=== PATIENT | male | born 1965 | race Caucasian/White ===

== ENCOUNTER 2017-09-26 17:15 | Emergency (ER) | payer SELFPAY ==
[2017-09-26] MEDS ORDERED: CLOPIDOGREL 75 MG TABLET ONE (17:50)
[2017-09-26] MEDS ORDERED: ASPIRIN 81 MG CHEWABLE TABLET ONE (17:50)
[2017-09-26] MEDS ORDERED: HEPARIN 5000 UNIT/ML 1 ML VIAL ONE (17:50)
[2017-09-26] MEDS ORDERED: HEPARIN/D5W 25,000 UNIT/500 ML BAG IV ONE (17:51)
[2017-09-26] MEDS ORDERED: METOPROLOL TARTRATE 5 MG/5 ML INJ IV ONE ×2 (17:57→18:09)
[2017-09-26] MEDS ORDERED: NITROGLYCERIN 0.4 MG/TAB SL ONE (17:57)
[2017-09-26] MEDS ORDERED: MORPHINE 4 MG/ML SYR ONE ×2 (18:11→18:33)
[2017-09-26] MEDS ORDERED: ONDANSETRON 4 MG/2 ML VIAL ONE (18:11)
--- NOTE | 2017-09-26 18:13 | EDPHYS ---
Physician Documentation [facility] Name: aGrcia Matta Age: 52 yrs Sex: Male : 1965 Arrival Date: 09/26/2017 Time: 17:19 Bed 4 Private MD: ED Physician Abebe Frederick HPI: 09/26 17:53 This 52 yrs old Male presents to ER via Ambulatory with complaints of Chest kdr Pain, Nausea/Vomiting. 17:53 The patient or guardian reports chest pain that is located primarily in the substernal kdr area. Onset: suddenly, yesterday, Began at 15:00 yesterday. The pain does not radiate. Associated signs and symptoms: Pertinent positives: nausea, vomiting, Yesterday he vomited at the onset of pain. The chest pain is described as aching, dull. Duration: The patient or guardian reports a single episode, that is still ongoing, Wax and wanes. Modifying factors: The symptoms are alleviated by nothing. the symptoms are aggravated by nothing. Severity of pain: At its worst the pain was moderate severe incapacitating in the emergency department the pain has improved mildly. Historical: - Allergies: 17:29 No Known Allergies; hb - Home Meds: 17:29 None [Active]; hb - PMHx: 17:29 Pneumothorax; Hypertension; hb - PSHx: 17:29 None; hb - Immunization history:: Adult Immunizations up to date. - Social history:: Smoking status: Patient uses tobacco products, smokes one pack cigarettes per day. ROS: 17:53 Constitutional: Negative for fever, chills, and weight loss, Eyes: Negative for injury, kdr pain, redness, and discharge, Neck: Negative for injury, pain, and swelling, Respiratory: Negative for shortness of breath, cough, wheezing, and pleuritic chest pain, Abdomen/GI: Negative for abdominal pain, nausea, vomiting, diarrhea, and constipation, Back: Negative for injury and pain, : Negative for injury, bleeding, discharge, and swelling, MS/Extremity: Negative for injury and deformity, Skin: Negative for injury, rash, and discoloration, Neuro: Negative for headache, weakness, numbness, tingling, and seizure activity. Psych: Negative for depression, anxiety, suicide ideation, homicidal ideation, and hallucinations, Allergy/Immunology: Negative for hives, rash, and allergies, Endocrine: Negative for neck swelling, polydipsia, polyuria, polyphagia, and marked weight changes, Hematologic/Lymphatic: Negative for swollen nodes, abnormal bleeding, and unusual bruising. 17:53 Cardiovascular: Positive for chest pain, Negative for edema, orthopnea, palpitations, paroxysmal nocturnal dyspnea. Exam: 18:11 Constitutional: This is a well developed, well nourished patient who is awake, alert, kdr and in no acute distress. Head/Face: Normocephalic, atraumatic. Eyes: Pupils equal round and reactive to light, extra-ocular motions intact. Lids and lashes normal. Conjunctiva and sclera are non-icteric and not injected. Cornea within normal limits. Periorbital areas with no swelling, redness, or edema. Neck: Trachea midline, no thyromegaly or masses palpated, and no cervical lymphadenopathy. Supple, full range of motion without nuchal rigidity, or vertebral point tenderness. No Meningismus. Chest/axilla: Normal chest wall appearance and motion. Nontender with no deformity. No lesions are appreciated. Cardiovascular: Regular rate and rhythm with a normal S1 and S2. No gallops, murmurs, or rubs. Normal PMI, no JVD. No pulse deficits. Respiratory: Lungs have equal breath sounds bilaterally, clear to auscultation and percussion. No rales, rhonchi or wheezes noted. No increased work of breathing, no retractions or nasal flaring. Abdomen/GI: Soft, non-tender, with normal bowel sounds. No distension or tympany. No guarding or rebound. No evidence of tenderness throughout. Back: No spinal tenderness. No costovertebral tenderness. Full range of motion. Skin: Warm, dry with normal turgor. Normal color with no rashes, no lesions, and no evidence of cellulitis. MS/ Extremity: Pulses equal, no cyanosis. Neurovascular intact. Full, normal range of motion. Neuro: Awake and alert, GCS 15, oriented to person, place, time, and situation. Cranial nerves II-XII grossly intact. Motor strength 5/5 in all extremities. Sensory grossly intact. Cerebellar exam normal. Normal gait. Psych: Awake, alert, with orientation to person, place and time. Behavior, mood, and affect are within normal limits. Vital Signs: 17:29 BP 172 / 105; Pulse 81; Resp 18; Temp 97.9; Pulse Ox 97% on R/A; Weight 86.18 kg; hb Height 6 ft. 1 in. (185.42 cm); Pain 7/10; 18:06 BP 180 / 107; Pulse 73; Resp 16; Pulse Ox 99% on R/A; Pain 7/10; iw 18:11 BP 163 / 109; Pulse 71; Resp 20; Pulse Ox 100% on R/A; Pain 7/10; iw 18:15 BP 150 / 101; Pulse 76; Resp 18 S; Pulse Ox 98% on R/A; Pain 6/10; iw 18:26 BP 148 / 97; Pulse 76 MON; Resp 18 S; Pulse Ox 99% on R/A; Pain 6/10; sg 18:36 BP 139 / 92; Pulse 66; Resp 18 S; Pulse Ox 99% on R/A; Pain 7/10; iw 17:29 Body Mass Index 25.07 (86.18 kg, 185.42 cm) hb MDM: 17:56 Patient medically screened. [facility] 18:11 Data reviewed: vital signs, nurses notes, lab test result(s), EKG, radiologic studies. kdr Counseling: I had a detailed discussion with the patient and/or guardian regarding: the historical points, exam findings, and any diagnostic results supporting the discharge/admit diagnosis, lab results, radiology results, the need to transfer to another facility. 09/26 17:46 Order name: Basic Metabolic Panel [facility] 09/26 17:46 Order name: BNP [facility] 09/26 17:46 Order name: CBC with Diff [facility] 09/26 17:46 Order name: LFT's [facility] 09/26 17:46 Order name: Magnesium [facility] 09/26 17:46 Order name: PT-INR [facility] 09/26 17:46 Order name: Ptt, Activated [facility] 09/26 17:46 Order name: Troponin (emerg Dept Use Only) [facility] 09/26 17:46 Order name: XRAY Chest (1 view) [facility] 09/26 17:46 Order name: EKG; Complete Time: 17:47 [facility] 09/26 17:46 Order name: Cardiac monitoring; Complete Time: 18:05 [facility] 09/26 17:46 Order name: EKG - Nurse/Tech; Complete Time: 18:05 [facility] 09/26 17:46 Order name: IV Saline Lock; Complete Time: 18:05 09/26 17:46 Order name: Labs collected and sent; Complete Time: 18:09/26 17:46 Order name: O2 Per Protocol; Complete Time: 18:05 09/26 17:46 Order name: O2 Sat Monitoring; Complete Time: 18:06 Administered Medications: 17:56 Drug: Heparin (KS-Bolus No thrombolytic) - HEParin 60 units/kg {Co-Signature: reza iw (Corey Jewell RN).} Route: IVP; Site: right forearm; 18:00 Follow up: Response: No adverse reaction iw 17:56 Drug: Heparin (KS Drip) 12 units/kg/hr - (HEParin 63214 units, D5W 500 ml) iw {Co-Signature: sg (Corey Jewell RN).} Route: IV; Rate: calculated rate; Site: right forearm; 18:01 Drug: Nitroglycerin 0.4 mg Route: Sublingual; iw 18:03 Drug: Lopressor 5 mg Route: IVP; Site: left antecubital; iw 18:30 Follow up: Response: No adverse reaction iw 18:04 Not Given (Duplicate Order): Heparin (DVT/PE Drip) 18 units/kg/hr - (HEParin 17285 iw units, D5W 500 ml) IV at calculated rate Per protocol; Max initial rate 1800 units/hr 18:04 Not Given (Duplicate Order): Heparin (DVT/PE- Bolus per protocol) - HEParin 80 units/kg iw IVP once; Max 8,000 units 18:04 Drug: PlaVIX 600 mg Route: PO; iw 18:35 Follow up: Response: No adverse reaction iw 18:05 Drug: Nitroglycerin 0.4 mg Route: Sublingual; iw 18:05 Drug: Aspirin Chewable Tablet 324 mg Route: PO; iw 18:15 Follow up: Response: No adverse reaction iw 18:20 Drug: Nitroglycerin 0.4 mg Route: Sublingual; sg 18:30 Follow up: Response: No adverse reaction iw 18:36 Drug: morphine 4 mg Route: IVP; Site: left antecubital; iw 18:48 Follow up: Response: No adverse reaction; Pain is decreased iw 18:39 Drug: Nitro-Bid Ointment 2 % 1 inches Route: Transdermal; Site: anterior chest wall; iw Disposition: 09/26/17 18:12 Transfer ordered to [facility]. Diagnosis is STEMI, Hypertensive emergency. - Reason for transfer: Higher level of care. - Accepting physician is Cardiology. - Condition is Serious. - Problem is new. - Symptoms have improved. Signatures: Dispatcher [employer] Corey Gonzalez RN RN sg Abebe Frederick MD MD [facility] Angela Flores RN RN Titus Costa PA PA [id number] Constanza Disla RN RN Corey Jewell RN sg
--- NOTE | 2017-09-26 18:13 | ER ---
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 Pain does not radiate. Pt reports similar s/s yesterday while watching tv that lasted approx 45mins. Transition of care: patient was not received from another setting of care. Onset of symptoms was September 26, 2017. Care prior to arrival: None. 17:24 Method Of Arrival: Ambulatory hb 17:24 Acuity: CATARINA 3 hb 17:57 Acuity: CATARINA 2 iw 17:57 Initial Sepsis Screen: Does the patient meet any 2 criteria? No. Patient's initial iw sepsis screen is negative. Does the patient have a suspected source of infection? No. Patient's initial sepsis screen is negative. Historical: - Allergies: 17:29 No Known Allergies; hb - Home Meds: 17:29 None [Active]; hb - PMHx: 17:29 Pneumothorax; Hypertension; hb - PSHx: 17:29 None; hb - Immunization history:: Adult Immunizations up to date. - Social history:: Smoking status: Patient uses tobacco products, smokes one pack cigarettes per day. Screenin:06 Abuse screen: Denies threats or abuse. Denies injuries from another. Nutritional iw screening: No deficits noted. Tuberculosis screening: No symptoms or risk factors identified. Fall Risk IV access (20 points). Assessment: 17:57 General: Appears in no apparent distress. Behavior is calm, cooperative. Pain: iw Complains of pain in anterior aspect of left upper chest and left breast Pain does not radiate. Pain currently is 7 out of 10 on a pain scale. Pain: Quality of pain is described as feels like someone stepped on my chest Pain began 1 day ago. Is intermittent. Neuro: Level of Consciousness is awake, alert, obeys commands, Oriented to person, place, time, situation, Moves all extremities. Full function. Cardiovascular: Reports chest pain, lightheadedness, nausea, vomiting, Heart tones S1 S2 present Capillary refill < 3 seconds in bilateral fingers Edema is absent. Respiratory: Airway is patent Respiratory effort is even, unlabored. GI: Abdomen is non-distended, Reports nausea, vomiting. Derm: Skin is normal. 18:06 Reassessment: pt states pain still 7/10, BP still elevated after one dose of Lopressor iw and 1 SL nitro. 18:12 Reassessment: new orders given for morphine 4 mg and zorfan 4 mg IP, given now. iw 18:15 Reassessment: pt gave keys and checkbook to granddaughter Smita Overton. iw 18:35 Reassessment: Patient appears in no apparent distress at this time. Patient and/or sg family updated on plan of care and expected duration. Pain level reassessed. Patient is alert, oriented x 3, equal unlabored respirations, skin warm/dry/pink. awaiting [facility] at this time, pt stated his pain is now a 5/10 Patient states feeling better. 18:45 Reassessment: Patient is alert, oriented x 3, equal unlabored respirations, skin sg warm/dry/pink. [facility] at bedside at this time, report given, pt moved to [facility] stretcher for transport out of the faciltiy Patient states feeling better. Vital Signs: 17:29 BP 172 / 105; Pulse 81; Resp 18; Temp 97.9; Pulse Ox 97% on R/A; Weight 86.18 kg; hb Height 6 ft. 1 in. (185.42 cm); Pain 7/10; 18:06 BP 180 / 107; Pulse 73; Resp 16; Pulse Ox 99% on R/A; Pain 7/10; iw 18:11 BP 163 / 109; Pulse 71; Resp 20; Pulse Ox 100% on R/A; Pain 7/10; iw 18:15 BP 150 / 101; Pulse 76; Resp 18 S; Pulse Ox 98% on R/A; Pain 6/10; iw 18:26 BP 148 / 97; Pulse 76 MON; Resp 18 S; Pulse Ox 99% on R/A; Pain 6/10; sg 18:36 BP 139 / 92; Pulse 66; Resp 18 S; Pulse Ox 99% on R/A; Pain 7/10; iw 17:29 Body Mass Index 25.07 (86.18 kg, 185.42 cm) hb ED Course: 17:19 Patient arrived in ED. al2 17:25 Abebe Frederick MD is Attending Physician. kdr 17:28 Triage completed. hb 17:30 Arm band placed on left wrist. hb 17:52 Inserted saline lock: 20 gauge in left antecubital area, using aseptic technique. iw 17:52 Inserted saline lock: 22 gauge in right forearm, using aseptic technique. ,using iw aseptic technique. IV inserted by Claudia Bourne RN Blood collected. 17:54 X-ray completed. Portable x-ray completed in exam room. Patient tolerated procedure kp1 well. 17:54 EKG done, by clinical technician. reviewed by Abebe Frederick MD. vh 17:57 XRAY Chest (1 view) In Process Unspecified. EDMS 18:00 Patient has correct armband on for positive identification. Bed in low position. sg tooling inspector on. Pulse ox on. NIBP on. 18:18 Corey Jewell, RN is Primary Nurse. iw 18:49 No provider procedures requiring assistance completed. Patient transferred, IV remains sg in place. intact, No redness/swelling at site. Patient maintains SpO2 saturation greater than 95% on room air. Administered Medications: 17:56 Drug: Heparin ([place]-Bolus No thrombolytic) - HEParin 60 units/kg {Co-Signature: sg iw (Corey Jewell RN).} Route: IVP; Site: right forearm; 18:00 Follow up: Response: No adverse reaction iw 17:56 Drug: Heparin ([place] Drip) 12 units/kg/hr - (HEParin 28305 units, D5W 500 ml) iw {Co-Signature: sg (Corey Jewell RN).} Route: IV; Rate: calculated rate; Site: right forearm; 18:01 Drug: Nitroglycerin 0.4 mg Route: Sublingual; iw 18:03 Drug: Lopressor 5 mg Route: IVP; Site: left antecubital; iw 18:30 Follow up: Response: No adverse reaction iw 18:04 Not Given (Duplicate Order): Heparin (DVT/PE Drip) 18 units/kg/hr - (HEParin 04277 iw units, D5W 500 ml) IV at calculated rate Per protocol; Max initial rate 1800 units/hr 18:04 Not Given (Duplicate Order): Heparin (DVT/PE- Bolus per protocol) - HEParin 80 units/kg iw IVP once; Max 8,000 units 18:04 Drug: PlaVIX 600 mg Route: PO; iw 18:35 Follow up: Response: No adverse reaction iw 18:05 Drug: Nitroglycerin 0.4 mg Route: Sublingual; iw 18:05 Drug: Aspirin Chewable Tablet 324 mg Route: PO; iw 18:15 Follow up: Response: No adverse reaction iw 18:20 Drug: Nitroglycerin 0.4 mg Route: Sublingual; sg 18:30 Follow up: Response: No adverse reaction iw 18:36 Drug: morphine 4 mg Route: IVP; Site: left antecubital; iw 18:48 Follow up: Response: No adverse reaction; Pain is decreased iw 18:39 Drug: Nitro-Bid Ointment 2 % 1 inches Route: Transdermal; Site: anterior chest wall; iw Outcome: 18:12 ER care complete, transfer ordered by . [facility] 18:48 Transferred by helicopter to [facility], Transfer form completed. sg Note: report was called to Yojana Flores RN 18:48 Condition: stable 18:48 Instructed on the need for transfer, report given to Supervisor Word Processing, and Flight RN with [facility] 18:50 Patient left the ED. 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 hb
[2017-09-26 18:15] LABS: Absolute Lymphocytes (CBC) 3.4 K/uL (0.7-4.9); Absolute Monocytes 1.6 K/uL (0.1-1.3); Absolute Neutrophil 6.7 K/uL (1.8-8.0); Basophils % 0.7 % (0-1.3); Eosinophils % 3.2 % (0-4.4); Hematocrit 44.1 % (39.6-49.0); Lymphocytes % 28.1 % (15.3-44.8); MCH 30.9 pg (27.0-35.0); MCV 90.3 fL (80-100); MPV 10.3 fL (7.6-11.3); RBC Red Blood Cell Count 4.89 M/uL (4.33-5.43)
[2017-09-26 18:16] LABS: Protime INR 0.94
[2017-09-26 18:28] LABS: Bicarbonate 25 mEq/L (21-31); Glucose Level 97 mg/dL (65-120); Potassium 3.5 mEq/L (3.6-5.0); Sodium Level 138 mEq/L (135-145)
[2017-09-26] MEDS ORDERED: NITROGLYCERIN 1 GM PKT TD ONE (18:32)
[2017-09-26 18:35] LABS: ALT/SGPT 22 IU/L (10-60); AST/SGOT 28 IU/L (10-42); Albumin 4.3 g/dL (3.2-5.5); Alkaline Phosphatase 64 IU/L (42-121); BUN Blood Urea Nitrogen 14 mg/dL (6-20); Bilirubin Direct 0.1 mg/dL (0-0.2); Bilirubin Total 0.3 mg/dL (0.3-1.2); Magnesium 1.6 mg/dL (1.8-2.5); Protein, Total 7.4 g/dL (6.0-8.3)
--- NOTE | 2017-09-26 18:36 | RAD REPORT ---
EXAM DESCRIPTION: Carina Single View09/26/2017 5:57 pm CLINICAL HISTORY: Chest pain COMPARISON: none FINDINGS: The lungs appear clear of acute infiltrate. The heart is normal size IMPRESSION: No acute abnormalities displayed
--- NOTE | 2017-09-26 22:11 | EKG ---
Test Date: 2017-09-26 Test Time: 17:41:46 Casing Sewer: TONY MEASUREMENT RESULTS: Intervals: Rate: 76 MT: 120 QRSD: 96 QT: 376 QTc: 423 [place]: P: 13 MT: 120 QRS: 63 T: 64 INTERPRETIVE STATEMENTS: Normal sinus rhythm Minimal voltage criteria for LVH, may be normal variant ST elevation, consider anterior injury or acute infarct ACUTE CO Abnormal ECG No previous ECG available for comparison Electronically Signed On 09-26-17 22:10:35 CDT by Ad Deng
== END 2017-09-26 18:50 | disposition short-term general hospital (02) ==
LOC: ER 17:15
DX: I21.3 ST elevation (STEMI) myocardial infarction of unspecified site (principal); I16.0 Hypertensive urgency
CPT/HCPCS: 36415; 71045; 80048; 80076; 83735; 83880; 84484; 85025; 85610; 85730; 93005; 99285; J1644; J2405

== ENCOUNTER 2017-10-22 16:50 | Observation (INO) | payer SELFPAY ==
--- OUTSIDE RECORDS SUMMARY | 2017-10-22 16:58 | XMS REPORT | Clinical Summary ---
:1965 Author Organization [facility] Address [address] [place] [address] Phone Care Team Providers Name Role Phone Unavailable Primary Care Provider Unavailable Allergies No Known Allergies Current Medications Prescription Sig. Disp. Refills Start Date End Date Status aspirin 81 MG EC Take 1 tablet 30 tablet 11 09/29/2017 09/29/2018 Active tablet (81 mg total) by mouth daily. atorvastatin (LIPITOR) Take 1 tablet 30 tablet 11 09/28/2017 09/28/2018 Active 80 MG tablet (80 mg total) by mouth nightly. carvedilol (COREG) Take 1 tablet 60 tablet 11 09/28/2017 09/28/2018 Active 6.25 MG tablet (6.25 mg total) by mouth 2 (two) times daily. clopidogrel (PLAVIX) Take 1 tablet 30 tablet 11 09/29/2017 09/29/2018 Active 75 mg tablet (75 mg total) by mouth daily. lisinopril Take 1 tablet 30 tablet 11 09/29/2017 09/29/2018 Active (PRINIVIL,ZESTRIL) 20 (20 mg total) by MG tablet mouth daily. nicotine (NICODERM CQ) Place 1 patch 30 patch 0 09/29/2017 10/29/2017 Active 14 mg/24 hr patch onto the skin daily for [address] 1 tablet 90 tablet 0 09/28/2017 Active (NITROSTAT) 0.4 MG SL (0.4 mg total) tablet under the tongue every 5 (five) minutes as needed for Chest pain. Active Problems Problem Noted Date Tobacco abuse 09/27/2017 Essential hypertension 09/27/2017 STEMI (ST elevation myocardial infarction) (HCC) 09/26/2017 Encounters Date Type Specialty Care Team Description 09/26/2017 - Hospital Encounter Cardiology Chencho Valladares MD ST elevation myocardial 09/28/2017 Charlie Regalado MD infarction (STEMI), unspecified artery ([facility]) (Primary Dx);SOB (shortness of breath);Ischemic cardiomyopathy;Postoper ative cardiogenic shock, initial encounter ([facility]);Hypotension, unspecified hypotension type;ST elevation myocardial infarction involving left anterior descending (LAD) coronary artery ([facility]) 09/26/2017 Procedure Pass 09/26/2017 Surgery Chencho Valladares MD L CATH & PCI after 10/21/2016 Social History Tobacco Use Types Packs/Day Years Used Date Current Every Day Smoker 1.5 Smokeless Tobacco: Never Used Tobacco Cessation: Ready to Quit: Yes; Counseling Given: Yes Alcohol Use Drinks/Week oz/Week Comments No Sex Assigned at Date Recorded Not on file Last Filed Vital Signs Vital Sign Reading Time Taken Blood Pressure 105/72 09/28/2017 11:30 AM CDT Pulse 99 09/28/2017 11:30 AM CDT Temperature 36.4 C (97.5 F) 09/28/2017 11:30 AM CDT Respiratory Rate 18 09/28/2017 11:30 AM CDT Oxygen Saturation 98% 09/28/2017 11:30 AM CDT Inhaled Oxygen Concentration - - Weight 74.3 kg (163 lb 11.2 oz) 09/28/2017 7:50 AM CDT Height 185.4 cm (6' 1") 09/26/2017 9:00 PM CDT Body Mass Index 21.6 09/28/2017 7:50 AM CDT Plan of Treatment Not on file Implants Implanted Type Area Weir Fisher Device Expiration Model / Identifier Date Serial / Lot Promus Premier Stents-C N/A: [place] 12/28/2018 [id number] / Implanted: Qty: 1 on 09/26/2017 by Chencho Valladares MD [employer] Coronary [employer] / [id number] Promus Premier Stents-C N/A: [place] 09/14/2018 [id number] / Implanted: Qty: 1 on 09/26/2017 by Chencho Valladares MD [employer] Coronary [employer]en / [id number] Promus Premier Stents-C N/A: [place] 12/28/2018 [id number] / Implanted: Qty: 1 on 09/26/2017 by [facility]cho [facility]res [facility] [employer] / [id number] Promus Premier Stents-C N/A: [place] 12/20/2018 [id number] / Implanted: Qty: 1 on 09/26/2017 by Chencho Valladares MD [facility] Coronary [employer] / [id number] Procedures Procedure Name Priority Date/Time Associated Diagnosis Comments L CATH & PCI 09/26/2017 7:[address] elevation myocardial infarction (STEMI), unspecified artery (HCC) after 10/21/2016 Results VASCULAR DIAGRAM -SCAN (10/07/2017 12:10 PM)Only the most recent of2 resultswithin the time period is included.CARDIAC CATH REPORT - SCAN (2017 9:10 PM)EKG-SCANNED (09/30/2017 11:20 AM)RHYTHM STRIP - SCAN (09/30/2017 11:20 AM)ECHOCARDIOGRAM REPORT - SCAN (09/28/2017 3:20 PM)CBC (Hemogram only) ( 09/28/2017 6:33 AM) Component Value Ref Range WBC 11.9 (H) 3.5 - 10.5 K/L RBC 5.10 4.63 - 6.08 M/L Hemoglobin 15.1 13.7 - 17.5 GM/DL Hematocrit 47.4 40.1 - 51.0 % MCV 92.9 (H) 79.0 - 92.2 fL MCH 29.6 25.7 - 32.2 pg MCHC 31.9 (L) 32.3 - 36.5 GM/DL RDW 12.6 11.6 - 14.4 % Platelets 178 150 - 450 K/CU MM MPV 11.8 9.4 - 12.4 fL nRBC 0 0 - 0 /100 WBC Specimen Performing Laboratory Blood - Arm, [address] [address] Magnesium (09/28/2017 6:33 AM)Only the most recent of2 resultswithin the time period is included. Component Value Ref Range Magnesium 1.9 1.6 - 2.6 mg/dL Specimen Performing Laboratory Blood - Arm, [address] [address] Basic Metabolic Panel (09/28/2017 6:33 AM)Only the most recent of3 resultswithin the time period is included. Component Value Ref Range Sodium 137 136 - 145 meq/L Potassium 4.0 3.5 - 5.1 meq/L Chloride 108 (H) 98 - 107 meq/L CO2 21 (L) 22 - 29 meq/L BUN 12 7 - 21 mg/dL Creatinine 0.69 0.57 - 1.25 mg/dL Glucose 93 70 - 105 mg/dL Calcium 9.4 8.4 - 10.2 mg/dL EGFR 121Comment: ESTIMATED GFR IS NOT ACCURATE mL/min/1.73 sq m CREATININE CLEARANCE IN PREDICTING GLOMERULAR FILTRATION RATE. ESTIMATED GFR IS NOT APPLICABLE FOR DIALYSIS PATIENTS. Specimen Performing Laboratory Blood - Arm, [address] [address] Troponin I (09/27/2017 8:54 PM)Only the most recent of4 resultswithin the time period is included. Component Value Ref Range Troponin I 63.70 (HH) 0.00 - 0.03 ng/mL Specimen Performing Laboratory Blood - Arm, [address] [address] Narrative Troponin I (TnI) levels must be interpreted in the context of the presenting symptoms and the clinical findings. Elevated TnI levels indicate myocardial damage, but are not specific for ischemic heart disease. Elevated TnI levels are seen in patients with other cardiac conditions (including myocarditis and congestive heart failure), and slight TnI elevations occur in patients with other conditions, including sepsis, renal failure, acidosis, acute neurological disease, and persistent tachyarrhythmia. 2D Echo W/Doppler(CW/PW/Color) (09/27/2017 4:55 PM) Component Value Ref Range Ejection Fraction Specimen Performing Laboratory 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 Clinical History HGB 13.8 HCT 42.8 % Hypertension STEMI Tachycardia Height: 73 inches Weight: 75.3 kg (166 lbs) BSA: 1.99 m^2 BMI: 21.9 kg/m^2 HR: 95 bpm BP: 126/83 mmHg Summary The left ventricle is chamber size (by vol index) is normal (male - LVED vol - 34-74ml/m2). No evidence of LV hypertrophy. The following segment(s) appear akinetic: mid-apical anteroseptum, apex. The other segments contract normally. LVEF by Valladares's method of disk assessment is mildly reduced (45-49%) . Grade 1 diastolic dysfunction (impaired relaxation and low-normal LA pressure). The right ventricular chamber size and systolic function are within normal limits. Estimated peak systolic PA pressure is 20-25 mmHg . No significant pericardial effusion is visualized. Signature Findings Left Ventricle The left ventricle is chamber size (by vol index) is normal (male - LVED vol - 34-74ml/m2). No evidence of LV hypertrophy. The following segment(s) appear akinetic: mid-apical anteroseptum, apex. The other segments contract normally. LVEF by Valladares's method of disk assessment is mildly reduced ( 45-49%) . Grade 1 diastolic dysfunction (impaired relaxation and low-normal LA pressure). Left AtriumLA size is normal . Right VentricleThe right ventricular chamber size and systolic function are within normal limits. Right Atrium RA size is normal. Aortic Valve Mild AoV cusp calcification. Mitral Valve Normal MV structure and function. Tricuspid ValveA trace of tricuspid regurgitation. Estimated peak systolic PA pressure is 20-25 mmHg . Pulmonic Valve PV is not well visualized; function appears normal by Doppler visualized. AortaAortic root size (SInus of Valsalva diameter) is normal . PericardiumNo significant pericardial effusion is visualized. IVC/SVC/PA/PV/PleuralThe estimated RA pressure by IVC dynamics 5-10mmHg . Chambers/Structures Left Atrium LA Volume: 33.65 ml LA Area: 13.08 cm^ 2 LA Vol. Index: 17 ml/m^2 Left Ventricle LVIDd: 4.22 cm LVIDs: 3.3 cm LV Septum Diastolic: 1.16 cm LV PW Diastolic: 1.34 cmLV FS: 21.8 % LVEDV Valladares's:69.19 ml LVESV Valladares's:37.88 mlLVEDVI: 35 ml/ m^2 LVEF Valladares's: 45.3 %LVESVI: 19 ml/m^2 LVOT Diameter: 2.09 cm Doppler/Quantitative Measurements Mitral Valve MV López. Peak: Tissue Doppler E' Lateral Velocity: 0.07 m/s Aortic Valve Peak Velocity: 2.21 m/sMean Velocity: 1.5 m/s Peak Gradient: 19.59 mmHgMean Gradient: 10.03 mmHg AV Area (continuity): 1.63 cm^2 AV VTI: 34.6 cm AV DVI: 0.48 LVOT Peak Velocity: 0.91 m/s Peak Gradient: 3.31 mmHg Mean Velocity: 0.64 m/s Mean Gradient: 1.89 mmHg LVOT Diameter: 2.09 cmLVOT VTI: 16.45 cm LVOT Area: 3.43 cm^2LVOT SV:56.41 ml LVOT CO: 5.36 l/min LVOT CI: 2.69 l/min/m^2 Tricuspid Valve TR Velocity: 1.87 m/s TR Gradient: 14.01 mmHg Procedure Note Interface, External Ris In - 09/28/2017 2:36 PM CDT Transthoracic Echocardiography Report (TTE) Demographics Patient Name GARCIA MATTA Date of Study 09/27/2017 Gender Male Visit Number [id number] Race Unknown Room Number 1431 Number Date of 1965 Referring Physician Age 52 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 Clinical History HGB 13.8 HCT 42.8 % Hypertension STEMI Tachycardia Height: 73 inches Weight: 75.3 kg (166 lbs) BSA: 1.99 m^2 BMI: 21.9 kg/m^2 HR: 95 bpm BP: 126/83 mmHg Summary The left ventricle is chamber size (by vol index) is normal (male - LVED vol - 34-74ml/m2). No evidence of LV hypertrophy. The following segment(s) appear akinetic: mid-apical anteroseptum, apex. The other segments contract normally. LVEF by Valladares's method of disk assessment is mildly reduced (45-49%) . Grade 1 diastolic dysfunction (impaired relaxation and low-normal LA pressure). The right ventricular chamber size and systolic function are within normal limits. Estimated peak systolic PA pressure is 20-25 mmHg . No significant pericardial effusion is visualized. Signature Findings Left Ventricle The left ventricle is chamber size (by vol index) is normal (male - LVED vol - 34-74ml/m2). No evidence of LV hypertrophy. The following segment(s) appear akinetic: mid-apical anteroseptum, apex. The other segments contract normally. LVEF by Valladares's method of disk assessment is mildly reduced (45-49%) . Grade 1 diastolic dysfunction (impaired relaxation and low-normal LA pressure). Left Atrium LA size is normal . Right Ventricle The right ventricular chamber size and systolic function are within normal limits. Right Atrium RA size is normal. Aortic Valve Mild AoV cusp calcification. Mitral Valve Normal MV structure and function. Tricuspid Valve A trace of tricuspid regurgitation. Estimated peak systolic PA pressure is 20-25 mmHg . Pulmonic Valve PV is not well visualized; function appears normal by Doppler visualized. Aorta Aortic root size (SInus of Valsalva diameter) is normal . Pericardium No significant pericardial effusion is visualized. IVC/SVC/PA/PV/Pleural The estimated RA pressure by IVC dynamics 5-10mmHg . Chambers/Structures Left Atrium LA Volume: 33.65 ml LA Area: 13.08 cm^2 LA Vol. Index: 17 ml/m^2 Left Ventricle LVIDd: 4.22 cm LVIDs: 3.3 cm LV Septum Diastolic: 1.16 cm LV PW Diastolic: 1.34 cm LV FS: 21.8 % LVEDV Valladares's:69.19 ml LVESV Valladares's:37.88 ml LVEDVI: 35 ml/m^2 LVEF Valladares's: 45.3 % LVESVI: 19 ml/m^2 LVOT Diameter: 2.09 cm Doppler/Quantitative Measurements Mitral Valve MV López. Peak: Tissue Doppler E' Lateral Velocity: 0.07 m/s Aortic Valve Peak Velocity: 2.21 m/s Mean Velocity: 1.5 m/s Peak Gradient: 19.59 mmHg Mean Gradient: 10.03 mmHg AV Area (continuity): 1.63 cm^2 AV VTI: 34.6 cm AV DVI: 0.48 LVOT Peak Velocity: 0.91 m/s Peak Gradient: 3.31 mmHg Mean Velocity: 0.64 m/s Mean Gradient: 1.89 mmHg LVOT Diameter: 2.09 cm LVOT VTI: 16.45 cm LVOT Area: 3.43 cm^2 LVOT SV:56.41 ml LVOT CO: 5.36 l/min LVOT CI: 2.69 l/min/m^2 Tricuspid Valve TR Velocity: 1.87 m/s TR Gradient: 14.01 mmHg TSH/Free T4 If Indicated (09/27/2017 11:55 AM) Component Value Ref Range TSH 1.30 0.35 - 4.94 uIU/mL Specimen Performing Laboratory Blood [facility] [address] [address] Narrative Draw next time labs are due Blood culture (09/27/2017 10:05 AM)Only the most recent of2 resultswithin the time period is included. Component Value Ref Range Result No growth in 5 days Specimen Performing Laboratory Blood - Arm, Left [address] [address] Rapid drug screen, urine (09/27/2017 8:58 AM) Component Value Ref Range Barbiturate Screen Negative Negative Benzodiazepine Screen Positive (A) Negative Cocaine (Metab.) Screen Negative Negative Methadone Screen Negative Negative Opiate Screen Positive (A) Negative Cannabinoid Screen Negative Negative Amph/Methamph Screen Negative Negative Phencyclidine Screen Negative Negative Oxycodone Screen Negative Negative Specimen Performing Laboratory Urine - Urine, Voided [address] [address] Narrative DRUGCUTOFF CONC. Cocaine 300 ng/mL Ddheuxgmnqm67 ng/mL Hidmsnendtdgrs512 ng/mL Barbiturate 200 ng/mL Ftdghweojacph05 ng/mL Dflezk151 ng/mL Methadone 300 ng/mL Amphetamine/ 1000 ng/mL Methamphetamine Oxycodone 300 ng/mL This assay provides an unconfirmed qualitative test result for the clinical management of patients in emergency situations. Chain of custody not maintained. Some emhd-voi-esrdnig medications, as well as adulterants, may cause inaccurate results. Clinical correlation should be applied. A more comprehensive drug screen or confirmation of a detected drug may be performed upon request. Hemoglobin A1c (09/27/2017 8:53 AM) Component Value Ref Range Hemoglobin A1C 5.2 4.3 - 6.1 % Specimen Performing Laboratory Blood [address] [address] Lipid panel (09/27/2017 8:53 AM) Component Value Ref Range Triglycerides 128 mg/dL Cholesterol 181 mg/dL HDL 32 mg/dL LDL Calculated 123 mg/dL Specimen Performing Laboratory Blood [address] [address] Narrative Triglyceride Reference Range: Low Risk <150 [id number] High Risk 200-499 Very High Risk>=500 Cholesterol Reference Range: Low Risk <200 Yfhiiluiav069-575 High Risk>240 HDL Cholesterol Reference Range: Low Risk >=60 High Risk <40 LDL Cholesterol Reference Range: Optimal<100 Near Urxolqt849-429 Ehrrzukhxy321-342 Verh596-507 Very High >=190 PT/aPTT (09/27/2017 5:35 AM) Component Value Ref Range Protime 13.2 11.7 - 14.7 seconds INR 1.0 <=5.9 PTT 29.7 22.5 - 36.0 seconds Specimen Performing Laboratory Blood [address] [address] Narrative RECOMMENDED COUMADIN/WARFARIN INR THERAPY RANGES STANDARD DOSE: 2.0 - 3.0 Includes: PROPHYLAXIS for venous thrombosis, systemic embolization; TREATMENT for venous thrombosis and/or pulmonary embolus. HIGH RISK: Target INR is 2.5-3.5 for patients with mechanical heart valves. CBC with platelet count + automated diff (09/27/2017 5:35 AM)Only the most recent of2 resultswithin the time period is included. Component Value Ref Range WBC 15.3 (H) 3.5 - 10.5 K/L RBC 4.56 (L) 4.63 - 6.08 M/L Hemoglobin 13.8 13.7 - 17.5 GM/DL Hematocrit 42.8 40.1 - 51.0 % MCV 93.9 (H) 79.0 - 92.2 fL MCH 30.3 25.7 - 32.2 pg MCHC 32.2 (L) 32.3 - 36.5 GM/DL RDW 12.8 11.6 - 14.4 % Platelets 181 150 - 450 K/CU MM MPV 11.5 9.4 - 12.4 fL nRBC 0 0 - 0 /100 WBC % Neutros 75 % % Lymphs 12 % % Monos 11 % % Eos 1 % % Baso 0 % # Neutros 11.48 (H) 1.78 - 5.38 K/L # Lymphs 1.88 1.32 - 3.57 K/L # Monos 1.73 (H) 0.30 - 0.82 K/L # Eos 0.12 0.04 - 0.54 K/L # Baso 0.04 0.01 - 0.08 K/L Immature Granulocytes-Relative 1 0 - 1 % Specimen Performing Laboratory Blood [address] [address] CBC with platelet count + automated diff (09/27/2017 5:35 AM)Only the most recent of2 resultswithin the time period is included. Specimen Performing Laboratory Blood Narrative The following orders were created for panel order CBC with platelet count + automated diff. Procedure Abnormality Status --------- ------ CBC with platelet count ...[[id number]]AbnormalFinal result Please view results for these tests on the individual orders. Urinalysis, Routine (09/27/2017 4:08 AM) Component Value Ref Range Color, UA Yellow Clarity, UA Clear Specific Fossil, UA >1.050 (H) 1.001 - 1.035 pH, UA 6.5 5.0 - 8.0 Protein, UA 10 mg/dL (A) Negative Glucose, UA Negative Negative Ketones, UA 20 mg/dL (A) Negative Bilirubin, UA Negative Negative Blood, UA Negative Negative Nitrite, UA Negative Negative Leukocytes, UA Negative Negative Urobilinogen, UA 0.2 0.2 - 1.0 mg/dL RBC, UA 1 /HPF WBC, UA 1 /HPF Mucus Rare Specimen Source Urine, Straight Catheter Specimen Performing Laboratory Urine - Urine, Straight Catheter [address] [address] POC ACTIVATED CLOTTING TIME (09/27/2017 1:25 AM)Only the most recent of4 resultswithin the time period is included. Component Value Ref Range Activated Clotting Time 131Comment: TESTED AT [address] sec [id number] Specimen Performing Laboratory Blood [address] [address] XR chest 1 view portable / bedside (09/26/2017 11:28 PM) Specimen Performing Laboratory GE RIS Narrative FINAL REPORT History: DE. Comparison: None. Findings: A single view of the chest is submitted. The patient is rotated to the right. The cardiomediastinal contours are unremarkable. The lung volumes are slightly low. Diffusely coarsened interstitial markings could reflect interstitial scarring or mild pulmonary interstitial edema. Bullae are noted in the left apex. There is no focal consolidation, pneumothorax, large pleural effusion or acute bony abnormality. Signed: Michael Sequeira MD Report Verified Date/Time:09/26/2017 23:46:29 Reading Location: [address] Reading Room Procedure Note Interface, External Ris In - 09/27/2017 12:03 AM CDT FINAL REPORT History: DE. Comparison: None. Findings: A single view of the chest is submitted. The patient is rotated to the right. The cardiomediastinal contours are unremarkable. The lung volumes are slightly low. Diffusely coarsened interstitial markings could reflect interstitial scarring or mild pulmonary interstitial edema. Bullae are noted in the left apex. There is no focal consolidation, pneumothorax, large pleural effusion or acute bony abnormality. Signed: Michael Sequeira MD Report Verified Date/Time: 09/26/2017 23:46:29 Reading Location: [address] Reading Room aPTT (09/26/2017 9:35 PM) Component Value Ref Range PTT >200.0 (HH) 22.5 - 36.0 seconds Specimen Performing Laboratory [address] [address] Prothrombin time/INR (09/26/2017 9:35 PM) Component Value Ref Range Protime 15.5 (H) 11.7 - 14.7 seconds INR 1.2 <=5.9 Specimen Performing Laboratory [address] [address] Narrative RECOMMENDED COUMADIN/WARFARIN INR THERAPY RANGES STANDARD DOSE: 2.0 - 3.0 Includes: PROPHYLAXIS for venous thrombosis, systemic embolization; TREATMENT for venous thrombosis and/or pulmonary embolus. HIGH RISK: Target INR is 2.5-3.5 for patients with mechanical heart valves. Phosphorus (09/26/2017 9:35 PM) Component Value Ref Range Phosphorus 3.6Comment: Specimen slightly hemolyzed 2.3 - 4.7 mg/dL Specimen Performing Laboratory [address] [address] B-type natriuretic peptide (09/26/2017 9:35 PM) Component Value Ref Range BNP 71 0 - 100 pg/mL Specimen Performing Laboratory [address] [address] Hepatic function panel (09/26/2017 9:35 PM) Component Value Ref Range Protein, Total 6.6Comment: Specimen slightly hemolyzed 6.0 - 8.3 gm/dL Albumin 3.9Comment: Specimen slightly hemolyzed 3.5 - 5.0 g/dL Total Bilirubin 0.5Comment: Specimen slightly hemolyzed 0.2 - 1.2 mg/dL Bilirubin, Direct 0.2Comment: Specimen slightly hemolyzed 0.1 - 0.5 mg/dL Alkaline Phosphatase 65 40 - 150 U/L AST 214 (H)Comment: Specimen slightly hemolyzed 5 - 34 U/L ALT 39Comment: Specimen slightly hemolyzed 6 - 55 U/L Specimen Performing Laboratory Blood [facility] [address] [address] after 10/21/2016
--- OUTSIDE RECORDS SUMMARY | 2017-10-22 16:58 | XMS REPORT ---
:1965 [facility] [address] [place] [address] Care Team Providers Name Role Phone PRADEEP STEEL Unavailable Unavailable Problems This patient has no known problems. Allergies, Adverse Reactions, Alerts This patient has no known allergies or adverse reactions. Medications This patient has no known medications. Results Test Description Test Time Test Comments Text Results Atomic Results Result Comments BLOOD CULTURE 2017-10-02 12:00:00 Test Item Value Reference Range Comments CULTURE (BEAKER) (test alsu=2268) No growth in 5 days BLOOD [id number] 12:00:00 Test Item Value Reference Range Comments CULTURE (BEAKER) (test bhmb=5270) No growth in 5 days [id number] 07:30:00 Test Item Value Reference Range Comments MAGNESIUM (BEAKER) (test pssm=766) 1.9 mg/dL 1.6-2.6 BASIC METABOLIC [id number] 07:30:00 Test Item Value Reference Range Comments SODIUM (BEAKER) (test 137 meq/L 136-145 rczs=959) POTASSIUM (BEAKER) (test 4.0 meq/L 3.5-5.1 rxlx=857) CHLORIDE (BEAKER) (test 108 meq/L 98-107 oakv=513) CO2 (BEAKER) (test 21 meq/L 22-29 pvnp=239) BLOOD UREA NITROGEN 12 mg/dL 7-21 (BEAKER) (test rkod=776) CREATININE (BEAKER) (test 0.69 mg/dL 0.57-1.25 wwjh=059) GLUCOSE RANDOM (BEAKER) 93 mg/dL 70-105 (test fmxk=022) CALCIUM (BEAKER) (test 9.4 mg/dL 8.4-10.2 utoh=318) EGFR (BEAKER) (test 121 mL/min/1.73 sq m ESTIMATED GFR IS NOT bhpa=1702) ACCURATE CREATININE CLEARANCE IN PREDICTING GLOMERULAR FILTRATION RATE. ESTIMATED GFR IS NOT APPLICABLE FOR DIALYSIS PATIENTS. CBC (HEMOGRAM ONLY)2017-09-28 07:02:00 Test Item Value Reference Range Comments WHITE BLOOD CELL COUNT (BEAKER) (test tcow=373) 11.9 K/ L 3.5-10.5 RED BLOOD CELL COUNT (BEAKER) (test oawg=700) 5.10 M/ L 4.63-6.08 HEMOGLOBIN (BEAKER) (test gxuk=066) 15.1 GM/DL 13.7-17.5 HEMATOCRIT (BEAKER) (test fnst=287) 47.4 % 40.1-51.0 MEAN CORPUSCULAR VOLUME (BEAKER) (test dkry=934) 92.9 fL 79.0-92.2 MEAN CORPUSCULAR HEMOGLOBIN (BEAKER) (test 29.6 pg 25.7-32.2 ohpg=557) MEAN CORPUSCULAR HEMOGLOBIN CONC (BEAKER) (test 31.9 GM/DL 32.3-36.5 lkit=495) RED CELL DISTRIBUTION WIDTH (BEAKER) (test 12.6 % 11.6-14.4 evad=720) PLATELET COUNT (BEAKER) (test soji=769) 178 K/CU MM 150-450 MEAN PLATELET VOLUME (BEAKER) (test sulg=487) 11.8 fL 9.4-12.4 NUCLEATED RED BLOOD CELLS (BEAKER) (test 0 /100 WBC 0-0 wimh=448) TROPONIN [id number] 22:02:00 Test Item Value Reference Range Comments TROPONIN I (BEAKER) (test rmdg=612) 63.70 ng/mL 0.00-0.03 Troponin I (TnI) levels must be interpreted [...] failure, acidosis, acute neurological disease, and persistent tachyarrhythmia.TSH/FREE T4 IF [id number] 16:05 :00 Test Item Value Reference Range Comments THYROID STIMULATING HORMONE (BEAKER) (test 1.30 uIU/mL 0.35-4.94 rugp=385) Draw next time labs are dueTROPONIN [id number] 14:46:00 Test Item Value Reference Range Comments TROPONIN I (BEAKER) (test lvls=048) 100.07 ng/mL 0.00-0.03 Troponin I (TnI) levels must be interpreted [...] failure, acidosis, acute neurological disease, and persistent tachyarrhythmia.HEMOGLOBIN [id number] 12:38:00 Test Item Value Reference Range Comments HEMOGLOBIN A1C (BEAKER) (test opmx=414) 5.2 % 4.3-6.1 RAPID DRUG SCREEN, [id number] 10:53:00 Test Item Value Reference Range Comments BARBITURATE URINE (BEAKER) (test vvsz=298) Negative Negative BENZODIAZEPINE SCREEN URINE (BEAKER) (test Positive Negative jaad=754) COCAINE (METAB.) SCREEN (BEAKER) (test dsax=2306) Negative Negative METHADONE SCREEN (BEAKER) (test gdod=0665) Negative Negative OPIATE SCREEN URINE (BEAKER) (test ybzv=977) Positive Negative CANNABINOID SCREEN URINE (BEAKER) (test cogd=944) Negative Negative AMPH/METHAMPH SCREEN (BEAKER) (test ujbg=3615) Negative Negative PHENCYCLIDINE SCREEN URINE (BEAKER) (test tewe=641) Negative Negative OXYCODONE SCREEN URINE (BEAKER) (test dbqh=9647) Negative Negative DRUG CUTOFF CONC.Cocaine 300 ng/mL Cannabinoid 50 ng/mL Benzodiazepine 200 ng/mLBarbiturate 200 ng/ mLPhencyclidine 25 ng/mLOpiate 300 ng/mLMethadone 300 ng/mLAmphetamine/ 1000 ng/mL MethamphetamineOxycodone 300 ng/mLThis assay provides an unconfirmed qualitative test result for the clinical management of patients in emergency situations. Chain of custody not maintained. Some lenp-wgk-djnvdnz medications, as well as adulterants, may cause inaccurate results. Clinical correlation should be applied. A more comprehensive drug screen or confirmation of a detected drug may be performed upon request.LIPID [id number] 09:21:00 Test Item Value Reference Range Comments TRIGLYCERIDES (BEAKER) (test nwhf=534) 128 mg/dL CHOLESTEROL (BEAKER) (test habx=584) 181 mg/dL HDL CHOLESTEROL (BEAKER) (test ueth=648) 32 mg/dL LDL CHOLESTEROL CALCULATED (BEAKER) (test 123 mg/dL uywz=615) Triglyceride Reference Range: Low Risk <150 Borderline 150- 199 High Risk 200-499 Very High Risk >=500Cholesterol Reference Range: Low Risk <200 Borderline 200-239 High Risk > 240HDL Cholesterol Reference Range: Low Risk >=60 High Risk <40LDL Cholesterol Reference Range: Optimal <100 Near Optimal 100-129 Borderline 130-159 High 160-189 Very High >=190TROPONIN [id number] 07:55:00 Test Item Value Reference Range Comments TROPONIN I (BEAKER) (test jxwr=096) 72.42 ng/mL 0.00-0.03 Troponin I (TnI) levels must be interpreted [...] failure, acidosis, acute neurological disease, and persistent tachyarrhythmia.[id number] 06:39:00 Test Item Value Reference Range Comments PROTIME (BEAKER) (test gpff=322) 13.2 seconds 11.7-14.7 INR (BEAKER) (test ktms=200) 1.0 <=5.9 PARTIAL THROMBOPLASTIN TIME (BEAKER) (test 29.7 seconds 22.5-36.0 vjtx=022) RECOMMENDED COUMADIN/WARFARIN INR THERAPY RANGESSTANDARD DOSE: 2.0 - 3.0 Includes: PROPHYLAXIS forvenous thrombosis, systemic embolization; TREATMENT for venous thrombosis and/or pulmonary embolus.HIGH RISK: Target INR is 2.5-3.5 for patients with mechanical heart valves.URINALYSIS W/ [id number] 06 :31:00 Test Item Value Reference Range Comments COLOR (BEAKER) (test sies=393) Yellow CLARITY (BEAKER) (test zbqe=403) Clear SPECIFIC GRAVITY UA (BEAKER) (test > 1.001-1.035 shcc=205) PH UA (BEAKER) (test dexu=654) 6.5 5.0-8.0 PROTEIN UA (BEAKER) (test btpq=153) 10 mg/dL Negative GLUCOSE UA (BEAKER) (test uwbi=757) Negative Negative KETONES UA (BEAKER) (test xyky=448) 20 mg/dL Negative BILIRUBIN UA (BEAKER) (test Negative Negative uxvj=856) BLOOD UA (BEAKER) (test rart=617) Negative Negative NITRITE UA (BEAKER) (test uqgq=201) Negative Negative LEUKOCYTE ESTERASE UA (BEAKER) Negative Negative (test rooq=891) UROBILINOGEN UA (BEAKER) (test 0.2 mg/dL 0.2-1.0 oord=968) RBC UA (BEAKER) (test lgpj=787) 1 /HPF WBC UA (BEAKER) (test mfdi=712) 1 /HPF MUCUS (BEAKER) (test gdno=6035) Rare SOURCE(BEAKER) (test gyxt=0688) Urine, Straight Catheter BASIC METABOLIC [id number] 06:09:00 Test Item Value Reference Range Comments SODIUM (BEAKER) (test 136 meq/L 136-145 tdkz=596) POTASSIUM (BEAKER) (test 4.2 meq/L 3.5-5.1 xyam=358) CHLORIDE (BEAKER) (test 105 meq/L 98-107 gldy=908) CO2 (BEAKER) (test 23 meq/L 22-29 aeqo=347) BLOOD UREA NITROGEN 10 mg/dL 7-21 (BEAKER) (test ziyd=596) CREATININE (BEAKER) (test 0.74 mg/dL 0.57-1.25 akoe=058) GLUCOSE RANDOM (BEAKER) 120 mg/dL 70-105 (test ewed=771) CALCIUM (BEAKER) (test 8.8 mg/dL 8.4-10.2 gpvf=584) EGFR (BEAKER) (test 112 mL/min/1.73 sq m ESTIMATED GFR IS NOT wdln=1505) ACCURATE CREATININE CLEARANCE IN PREDICTING GLOMERULAR FILTRATION RATE. ESTIMATED GFR IS NOT APPLICABLE FOR DIALYSIS PATIENTS. CBC W/PLT COUNT & AUTO [id number] 05:57:00 Test Item Value Reference Range Comments WHITE BLOOD CELL COUNT (BEAKER) (test ieiu=701) 15.3 K/ L 3.5-10.5 RED BLOOD CELL COUNT (BEAKER) (test nkql=077) 4.56 M/ L 4.63-6.08 HEMOGLOBIN (BEAKER) (test lgqd=212) 13.8 GM/DL 13.7-17.5 HEMATOCRIT (BEAKER) (test obir=237) 42.8 % 40.1-51.0 MEAN CORPUSCULAR VOLUME (BEAKER) (test jhme=575) 93.9 fL 79.0-92.2 MEAN CORPUSCULAR HEMOGLOBIN (BEAKER) (test 30.3 pg 25.7-32.2 kypx=114) MEAN CORPUSCULAR HEMOGLOBIN CONC (BEAKER) (test 32.2 GM/DL 32.3-36.5 gmgd=662) RED CELL DISTRIBUTION WIDTH (BEAKER) (test 12.8 % 11.6-14.4 gqxk=267) PLATELET COUNT (BEAKER) (test tzoj=382) 181 K/CU MM 150-450 MEAN PLATELET VOLUME (BEAKER) (test ywus=734) 11.5 fL 9.4-12.4 NUCLEATED RED BLOOD CELLS (BEAKER) (test 0 /100 WBC 0-0 awin=609) NEUTROPHILS RELATIVE PERCENT (BEAKER) (test 75 % cnox=466) LYMPHOCYTES RELATIVE PERCENT (BEAKER) (test 12 % knnt=385) MONOCYTES RELATIVE PERCENT (BEAKER) (test 11 % nqnc=137) EOSINOPHILS RELATIVE PERCENT (BEAKER) (test 1 % lctq=551) BASOPHILS RELATIVE PERCENT (BEAKER) (test 0 % lisc=808) NEUTROPHILS ABSOLUTE COUNT (BEAKER) (test 11.48 K/ L 1.78-5.38 vysb=501) LYMPHOCYTES ABSOLUTE COUNT (BEAKER) (test 1.88 K/ L 1.32-3.57 ydas=328) MONOCYTES ABSOLUTE COUNT (BEAKER) (test 1.73 K/ L 0.30-0.82 azer=089) EOSINOPHILS ABSOLUTE COUNT (BEAKER) (test 0.12 K/ L 0.04-0.54 oceb=527) BASOPHILS ABSOLUTE COUNT (BEAKER) (test 0.04 K/ L 0.01-0.08 eiwe=190) IMMATURE GRANULOCYTES-RELATIVE PERCENT (BEAKER) 1 % 0-1 (test elda=0850) [id number] 01:38:00 Test Item Value Reference Range Comments ACTIVATED CLOTTING TIME 131 sec TESTED AT [facility] [address] [facility] (BE[facility] (test sydi=962) [place] [address] [id number] 01:38:00 Test Item Value Reference Range Comments ACTIVATED CLOTTING TIME 147 sec TESTED AT [facility] [address] [facility] (BEAKER) (test pqky=749) [facility] [address] RAD, CHEST, 1 VIEW, NON [id number] 23:46:00Reason for exam:->STEMIShould this be performed at the bedside?->YesFINAL REPORT History: MD. Comparison: None. Findings: A single view of the chest is submitted. The patient is rotated to the right. The cardiomediastinal contours are unremarkable. The lung volumes are slightly low. Diffusely coarsened interstitial markings could reflect interstitial scarring or mild pulmonary interstitial edema. Bullae are noted in the left apex. There is nofocal consolidation, pneumothorax, large pleural effusion or acute bony abnormality. Signed: [facility] Verified Date/Time: 09/26/2017 23:46:29 Reading Location: [address] Reading Room TROPONIN [id number] 22:47:00 Test Item Value Reference Range Comments TROPONIN I (BEAKER) (test andz=313) 56.52 ng/mL 0.00-0.03 Troponin I (TnI) levels must be interpreted [...] failure, acidosis, acute neurological disease, and persistent tachyarrhythmia.[id number] 22:39:00 Test Item Value Reference Range Comments PARTIAL THROMBOPLASTIN TIME (BEAKER) (test > seconds 22.5-36.0 oiit=949) B-TYPE NATRIURETIC FACTOR (BNP)2017-09-26 22:27:00 Test Item Value Reference Range Comments B-TYPE NATRIURETIC PEPTIDE (BEAKER) (test ekdw=588) 71 pg/mL 0-100 [id number] 22:20:00 Test Item Value Reference Range Comments MAGNESIUM (BEAKER) (test 1.9 mg/dL 1.6-2.6 Specimen slightly hemolyzed mhaw=522) [id number] 22:20:00 Test Item Value Reference Range Comments PHOSPHORUS (BEAKER) (test 3.6 mg/dL 2.3-4.7 Specimen slightly hemolyzed zstf=040) BASIC METABOLIC [id number] 22:20:00 Test Item Value Reference Range Comments SODIUM (BEAKER) (test 136 meq/L 136-145 bxrl=795) POTASSIUM (BEAKER) (test 4.0 meq/L 3.5-5.1 Specimen slightly tiwm=858) hemolyzed CHLORIDE (BEAKER) (test 107 meq/L 98-107 qnsr=507) CO2 (BEAKER) (test 19 meq/L 22-29 facb=919) BLOOD UREA NITROGEN 12 mg/dL 7-21 (BEAKER) (test fxob=793) CREATININE (BEAKER) (test 0.68 mg/dL 0.57-1.25 Specimen slightly swsm=649) hemolyzed GLUCOSE RANDOM (BEAKER) 122 mg/dL 70-105 (test qwky=320) CALCIUM (BEAKER) (test 8.6 mg/dL 8.4-10.2 kwzk=889) EGFR (BEAKER) (test 123 mL/min/1.73 sq m ESTIMATED GFR IS NOT aafa=2583) ACCURATE CREATININE CLEARANCE IN PREDICTING GLOMERULAR FILTRATION RATE. ESTIMATED GFR IS NOT APPLICABLE FOR DIALYSIS PATIENTS. HEPATIC FUNCTION [id number] 22:20:00 Test Item Value Reference Range Comments TOTAL PROTEIN (BEAKER) (test 6.6 gm/dL 6.0-8.3 Specimen slightly hemolyzed apgr=116) ALBUMIN (BEAKER) (test 3.9 g/dL 3.5-5.0 Specimen slightly hemolyzed gnhu=4083) BILIRUBIN TOTAL (BEAKER) (test 0.5 mg/dL 0.2-1.2 Specimen slightly hemolyzed dlxa=963) BILIRUBIN DIRECT (BEAKER) (test 0.2 mg/dL 0.1-0.5 Specimen slightly hemolyzed ohjz=910) ALKALINE PHOSPHATASE (BEAKER) 65 U/L 40-150 (test pezu=843) AST (SGOT) (BEAKER) (test 214 U/L 5-34 Specimen slightly hemolyzed uugx=777) ALT (SGPT) (BEAKER) (test 39 U/L 6-55 Specimen slightly hemolyzed lpof=913) PROTHROMBIN [id number] 22:19:00 Test Item Value Reference Range Comments PROTIME (BEAKER) (test ioai=509) 15.5 seconds 11.7-14.7 INR (BEAKER) (test pncr=816) 1.2 <=5.9 RECOMMENDED COUMADIN/WARFARIN INR THERAPY RANGESSTANDARD DOSE: 2.0 - 3.0 Includes: PROPHYLAXIS forvenous thrombosis, systemic embolization; TREATMENT for venous thrombosis and/or pulmonary embolus.HIGH RISK: Target INR is 2.5-3.5 for patients with mechanical heart valves.CBC W/PLT COUNT & AUTO [id number] 22:03:00 Test Item Value Reference Range Comments WHITE BLOOD CELL COUNT (BEAKER) (test qbbs=227) 15.7 K/ L 3.5-10.5 RED BLOOD CELL COUNT (BEAKER) (test rwen=167) 4.35 M/ L 4.63-6.08 HEMOGLOBIN (BEAKER) (test jhqo=749) 13.4 GM/DL 13.7-17.5 HEMATOCRIT (BEAKER) (test bhgj=819) 40.1 % 40.1-51.0 MEAN CORPUSCULAR VOLUME (BEAKER) (test cjfy=075) 92.2 fL 79.0-92.2 MEAN CORPUSCULAR HEMOGLOBIN (BEAKER) (test 30.8 pg 25.7-32.2 yime=856) MEAN CORPUSCULAR HEMOGLOBIN CONC (BEAKER) (test 33.4 GM/DL 32.3-36.5 ubaz=595) RED CELL DISTRIBUTION WIDTH (BEAKER) (test 12.6 % 11.6-14.4 zlys=609) PLATELET COUNT (BEAKER) (test ulyq=942) 177 K/CU MM 150-450 MEAN PLATELET VOLUME (BEAKER) (test ydfn=372) 11.4 fL 9.4-12.4 NUCLEATED RED BLOOD CELLS (BEAKER) (test 0 /100 WBC 0-0 gkdm=747) NEUTROPHILS RELATIVE PERCENT (BEAKER) (test 80 % dfnk=493) LYMPHOCYTES RELATIVE PERCENT (BEAKER) (test 11 % npiq=988) MONOCYTES RELATIVE PERCENT (BEAKER) (test 7 % pewc=235) EOSINOPHILS RELATIVE PERCENT (BEAKER) (test 1 % lgei=376) BASOPHILS RELATIVE PERCENT (BEAKER) (test 0 % caij=317) NEUTROPHILS ABSOLUTE COUNT (BEAKER) (test 12.50 K/ L 1.78-5.38 mueg=991) LYMPHOCYTES ABSOLUTE COUNT (BEAKER) (test 1.78 K/ L 1.32-3.57 dfhq=312) MONOCYTES ABSOLUTE COUNT (BEAKER) (test 1.08 K/ L 0.30-0.82 yhqo=846) EOSINOPHILS ABSOLUTE COUNT (BEAKER) (test 0.14 K/ L 0.04-0.54 tfdx=248) BASOPHILS ABSOLUTE COUNT (BEAKER) (test 0.06 K/ L 0.01-0.08 kxhw=117) IMMATURE GRANULOCYTES-RELATIVE PERCENT (BEAKER) 1 % 0-1 (test bzyv=0818) [id number] 21:55:00 Test Item Value Reference Range Comments ACTIVATED CLOTTING TIME 208 sec TESTED AT [place] [id number] [employer] ([employer] (BEAKER) (test kujr=078) [place] [address] [id number] 19:50:00 Test Item Value Reference Range Comments ACTIVATED CLOTTING TIME 301 sec TESTED AT [place] [address] [employer] ([employer] (BEAKER) (test bwjz=112) [place] [address]
[2017-10-22 17:58] LABS: Absolute Lymphocytes (CBC) 2.2 K/uL (0.7-4.9); Absolute Neutrophil 4.8 K/uL (1.8-8.0); Basophils % 0.9 % (0-1.3); Eosinophils % 3.4 % (0-4.4); Hematocrit 40.3 % (39.6-49.0); Lymphocytes % 26.3 % (15.3-44.8); MCH 29.7 pg (27.0-35.0); MCV 91.1 fL (80-100); MPV 10.1 fL (7.6-11.3); Monocytes % 12.3 % (3.3-12.3); RBC Red Blood Cell Count 4.43 M/uL (4.33-5.43)
[2017-10-22 18:02] LABS: Protime INR 1.03
[2017-10-22 18:16] LABS: Urine Blood NEGATIVE (NEG); Urine Glucose NEGATIVE (NEG); Urine Protein NEGATIVE (NEG); Urine pH 5.5 (5.0-7.0)
[2017-10-22 19:02] LABS: Bicarbonate 25 mEq/L (21-31); Glucose Level 97 mg/dL (65-120); Potassium 3.7 mEq/L (3.6-5.0); Sodium Level 137 mEq/L (135-145)
[2017-10-22 19:08] LABS: ALT/SGPT 27 IU/L (10-60); AST/SGOT 24 IU/L (10-42); Albumin 3.9 g/dL (3.2-5.5); Alkaline Phosphatase 51 IU/L (42-121); BUN Blood Urea Nitrogen 18 mg/dL (6-20); Bilirubin Direct 0.1 mg/dL (0-0.2); Bilirubin Total 0.5 mg/dL (0.3-1.2); Creatine Phosphokinase 107 IU/L (22-269); Magnesium 1.8 mg/dL (1.8-2.5); Protein, Total 6.9 g/dL (6.0-8.3)
[2017-10-22 19:12] LABS: CKMB Creatine Kinase MB 2.9 ng/ml (0.3-4.0)
--- NOTE | 2017-10-22 19:21 | RAD REPORT ---
EXAM DESCRIPTION: Carina Single View10/22/2017 6:19 pm CLINICAL HISTORY: Chest pain COMPARISON: September 2017 FINDINGS: The lungs appear clear of acute infiltrate. The heart is normal size IMPRESSION: No acute abnormalities displayed
--- NOTE | 2017-10-22 19:25 | ER ---
Nurse's Notes [facility] Name: Garcia Matta Age: 52 yrs Sex: Male : 1965 Arrival Date: 10/22/2017 Time: 16:53 Bed 26 Private MD: Diagnosis: Chest pain, unspecified Presentation: 10/22 16:54 Presenting complaint: EMS states: Pt. comes from home by EMS. C/O CP. Onset approx 30 rk2 min ago. Pt. states that he was driving home when his pain started. Non radiating, associated SOB. Pt. took NTG and ASA before EMS arrived and is now pain free. Pt. [facility] 3 [facility] st[facility] Transition of care: patient was not received from another setting of care. Onset of symptoms was October 22, 2017. Initial Sepsis Screen: Does the patient meet any 2 criteria? No. Patient's initial sepsis screen is negative. Does the patient have a suspected source of infection? No. Patient's initial sepsis screen is negative. Care prior to arrival: Medication(s) given: ASA, Nitroglycerin, 0.4 mg SL IV initiated. 20 GA, in the left antecubital area. 16:54 Method Of Arrival: EMS: [facility] rk2 16:54 Acuity: CATARINA 2 rk2 Triage Assessment: 17:54 General: Appears in no apparent distress. well developed, well nourished, Behavior is rk2 calm, cooperative. Pain: Denies pain. Neuro: No deficits noted. Level of Consciousness is alert, obeys commands, Oriented to person, place, time, situation. Cardiovascular: Capillary refill Rhythm is regular. Respiratory: Airway is patent Respiratory effort is even, unlabored, Respiratory pattern is regular, symmetrical. Derm: Skin is pink, warm \T\ dry. Historical: - Home Meds: 19:49 lisinopril 20 mg Oral tab [Active]; carvedilol 6.25 mg oral tab [Active]; atorvastatin rk2 80 mg oral tab [Active]; nitroglycerin 0.4 mg SL subl [Active]; aspirin 81 mg Oral chew 1 tab once daily [Active]; Plavix 75 mg Oral tab [Active]; - PMHx: 18:16 Hypertension; Myocardial infarction; Pneumothorax; rk2 - Immunization history:: Pneumococcal vaccine status is unknown. - Social history:: Smoking status: Patient uses tobacco products. Screenin:00 Abuse screen: Denies threats or abuse. rk2 17:00 Nutritional screening: No deficits noted. Tuberculosis screening: No symptoms or risk rk2 factors identified. Fall Risk None identified. Assessment: 18:01 Reassessment: xray completed \T\ bedside. rk2 19:00 Reassessment: Pt. resting in room \T\ this time, in no obvious distress... denies pain. rk2 Waiting results. No needs \T\ this time. No change for last assessment. 20:00 Reassessment: No changes from previously documented assessment. Patient and/or family rk2 updated on plan of care and expected duration. Pain level reassessed. No needs voiced. Patient denies pain at this time. 21:00 Reassessment: No changes from previously documented assessment. Patient and/or family rk2 updated on plan of care and expected duration. Pain level reassessed. Patient denies pain at this time. 22:17 Reassessment: report given to receiving RN, pt transported to room by wheelchair. rk2 Vital Signs: 16:57 BP 119 / 84; Pulse 86; Resp 17; Temp 98.0; Pulse Ox 97% on R/A; rk2 17:30 BP 118 / 79; Pulse 79; Resp 17; Pulse Ox 98% on R/A; rk2 18:30 BP 125 / 82; Pulse 72; Resp 17; Pulse Ox 98% on R/A; rk2 19:30 BP 135 / 92; Pulse 70; Resp 17; Pulse Ox 99% on R/A; rk2 20:30 BP 139 / 89; Pulse 83; Resp 17; Pulse Ox 99% on R/A; rk2 21:30 BP 127 / 86; Pulse 79; Resp 17; Pulse Ox 100% on R/A; rk2 ED Course: 16:53 Patient arrived in ED. rk2 16:54 EKG done, by vascular technician. reviewed by Abebe Frederick MD. at1 16:57 Triage completed. rk2 17:00 Patient has correct armband on for positive identification. Bed in low position. Call rk2 light in reach. Side rails up X2. cardiac monitor technician on. Pulse ox on. 17:09 Abebe Frederick MD is Attending Physician. kdr 17:38 [place], Aretha, RN is Primary Nurse. rk2 18:01 XRAY Chest (1 view) Sent. rk2 18:18 X-ray completed. Portable x-ray completed in exam room. Patient tolerated procedure bb2 well. 18:20 XRAY Chest (1 view) In Process Unspecified. EDMS 18:30 Arm band placed on. rk2 19:25 Rajiv Gallagher MD is Hospitalizing Provider. kdr 22:18 No provider procedures requiring assistance completed. Patient admitted, IV remains in rk2 place. Administered Medications: No medications were administered Outcome: 19:25 Decision to Hospitalize by Provider. kdr 21:53 Admitted to Tele via wheelchair, room 402, with chart, Report called to Katrin WHITE bb 22:18 Condition: good rk2 22:18 Instructed on the need for admit. 22:22 Patient left the ED. rk2 Signatures: Dispatcher [employer] EDMS Abebe Frederick MD MD kdr Ballard, Brenda, RN RN bb Laura crum, client manager large law EKG Tat1 Jerica Hurst bb2 Aretha Fabian, RN RN rk2
--- NOTE | 2017-10-22 19:25 | EDPHYS ---
Physician Documentation [facility] Name: Garcia Matta Age: 52 yrs Sex: Male : 1965 Arrival Date: 10/22/2017 Time: 16:53 Bed 26 Private MD: ED Physician Abebe Frederick HPI: 10/23 11:59 This 52 yrs old Male presents to ER via EMS with complaints of Left chest kdr pain. 11:59 The patient or guardian reports chest pain that is located primarily in the anterior kdr chest wall, left. Onset: suddenly, just prior to arrival. The pain does not radiate. Associated signs and symptoms: Pertinent positives: nausea, shortness of breath, Pertinent negatives: diaphoresis, headache, lower extremity pain, lower extremity swelling, lightheadedness, near syncope, palpitations. The chest pain is described as aching, sharp, Like prior HI pain. Duration: The patient or guardian reports a single episode, that is now resolved, that lasted 10 minute(s). Modifying factors: The symptoms are alleviated by NTG, X1. the symptoms are aggravated by activity, breathing, cough, deep breath, jumping. Severity of pain: At its worst the pain was moderate severe in the emergency department the pain has resolved. The patient has experienced a previous episode, last month, and the symptoms today are exactly the same, Like prior HI in September. Historical: - Home Meds: 10/22 19:49 lisinopril 20 mg Oral tab [Active]; carvedilol 6.25 mg oral tab [Active]; atorvastatin rk2 80 mg oral tab [Active]; nitroglycerin 0.4 mg SL subl [Active]; aspirin 81 mg Oral chew 1 tab once daily [Active]; Plavix 75 mg Oral tab [Active]; - PMHx: 18:16 Hypertension; Myocardial infarction; Pneumothorax; rk2 - Immunization history:: Pneumococcal vaccine status is unknown. - Social history:: Smoking status: Patient uses tobacco products. ROS: 10/23 11:59 Constitutional: Negative for fever, chills, and weight loss, Eyes: Negative for injury, kdr pain, redness, and discharge, ENT: Negative for injury, pain, and discharge, Neck: Negative for injury, pain, and swelling, Cardiovascular: Negative for palpitations, and edema - he did c/o chest pain Respiratory: Negative for shortness of breath, cough, wheezing, and pleuritic chest pain, Abdomen/GI: Negative for abdominal pain, nausea, vomiting, diarrhea, and constipation, Back: Negative for injury and pain, : Negative for injury, bleeding, discharge, and swelling, MS/Extremity: Negative for injury and deformity, Skin: Negative for injury, rash, and discoloration, Neuro: Negative for headache, weakness, numbness, tingling, and seizure activity. Psych: Negative for depression, anxiety, suicide ideation, homicidal ideation, and hallucinations, Allergy/Immunology: Negative for hives, rash, and allergies, Endocrine: Negative for neck swelling, polydipsia, polyuria, polyphagia, and marked weight changes, Hematologic/Lymphatic: Negative for swollen nodes, abnormal bleeding, and unusual bruising. Exam: 11:59 Constitutional: This is a well developed, well nourished patient who is awake, alert, kdr and in no acute distress. Head/Face: Normocephalic, atraumatic. Eyes: Pupils equal round and reactive to light, extra-ocular motions intact. Lids and lashes normal. Conjunctiva and sclera are non-icteric and not injected. Cornea within normal limits. Periorbital areas with no swelling, redness, or edema. Neck: Trachea midline, no thyromegaly or masses palpated, and no cervical lymphadenopathy. Supple, full range of motion without nuchal rigidity, or vertebral point tenderness. No Meningismus. Chest/axilla: Normal chest wall appearance and motion. Nontender with no deformity. No lesions are appreciated. Cardiovascular: Regular rate and rhythm with a normal S1 and S2. No gallops, murmurs, or rubs. Normal PMI, no JVD. No pulse deficits. Respiratory: Lungs have equal breath sounds bilaterally, clear to auscultation and percussion. No rales, rhonchi or wheezes noted. No increased work of breathing, no retractions or nasal flaring. Abdomen/GI: Soft, non-tender, with normal bowel sounds. No distension or tympany. No guarding or rebound. No evidence of tenderness throughout. Back: No spinal tenderness. No costovertebral tenderness. Full range of motion. Skin: Warm, dry with normal turgor. Normal color with no rashes, no lesions, and no evidence of cellulitis. MS/ Extremity: Pulses equal, no cyanosis. Neurovascular intact. Full, normal range of motion. Neuro: Awake and alert, GCS 15, oriented to person, place, time, and situation. Cranial nerves II-XII grossly intact. Motor strength 5/5 in all extremities. Sensory grossly intact. Cerebellar exam normal. Normal gait. Psych: Awake, alert, with orientation to person, place and time. Behavior, mood, and affect are within normal limits. Vital Signs: 10/22 16:57 BP 119 / 84; Pulse 86; Resp 17; Temp 98.0; Pulse Ox 97% on R/A; rk2 17:30 BP 118 / 79; Pulse 79; Resp 17; Pulse Ox 98% on R/A; rk2 18:30 BP 125 / 82; Pulse 72; Resp 17; Pulse Ox 98% on R/A; rk2 19:30 BP 135 / 92; Pulse 70; Resp 17; Pulse Ox 99% on R/A; rk2 20:30 BP 139 / 89; Pulse 83; Resp 17; Pulse Ox 99% on R/A; rk2 21:30 BP 127 / 86; Pulse 79; Resp 17; Pulse Ox 100% on R/A; rk2 MDM: 19:25 Patient medically screened. kdr 10/23 11:59 HEART Score: History: Moderately Suspicious (1), ECG: Non specific repolarization kdr disturbance / LBTB / PM (1), Age: > 45 and < 65 years (1), Risk Factors: 1 or 2 risk factors (1), [Active Smoker] Troponin: < or = 1 x Normal Limit (0), Total Score =. MARIA EUGENIA Risk Score: 1- Known CAD, 1 - ASA use in past 7 days, 1 - Recent [<24hrs] Severe Angina, TOTAL SCORE = 3. Data reviewed: vital signs, nurses notes. 10/22 17:40 Order name: Basic Metabolic Panel [facility] 10/22 17:40 Order name: BNP; Complete Time: 18:49 [facility] 10/22 17:40 Order name: CBC with Diff; Complete Time: 18:49 [facility] 10/22 17:40 Order name: Ckmb [facility] 10/22 17:40 Order name: CPK [facility] 10/22 17:40 Order name: LFT's [facility] 10/22 17:40 Order name: Magnesium [facility] 10/22 17:40 Order name: PT-INR; Complete Time: 18:49 [facility] 10/22 17:40 Order name: Ptt, Activated; Complete Time: 18:49 [facility] 10/22 17:40 Order name: Troponin (emerg Dept Use Only); Complete Time: 18:49 [facility] 10/22 18:12 Order name: Urine Dipstick--Ancillary (enter results); Complete Time: 18:49 [facility] 10/22 19:38 Order name: Basic Metabolic Panel [facility] 10/22 19:38 Order name: Basic Metabolic Panel [facility] 10/22 19:38 Order name: CBC with Automated Diff [facility] 10/22 17:19 Order name: EKG Electrocardiogram; Complete Time: 17:52 [facility] 10/22 17:40 Order name: XRAY Chest (1 view) [facility] 10/22 17:40 Order name: Cardiac monitoring; Complete Time: 17:40 [facility] 10/22 17:40 Order name: EKG - Nurse/Tech; Complete Time: 17:40 [facility] 10/22 19:38 Order name: CONS Physician Consult [facility] 10/22 19:38 Order name: Heart Healthy [facility] 10/22 19:38 Order name: EKG Electrocardiogram [facility] 10/22 19:38 Order name: EKG Electrocardiogram [facility] 10/22 19:38 Order name: CBC with Automated Diff [facility] 10/22 19:38 Order name: Lipid Profile [facility] 10/22 19:38 Order name: Lipid Profile [facility] 10/22 19:38 Order name: Troponin I [facility] 10/22 19:38 Order name: Troponin I [facility] 10/22 19:38 Order name: Troponin I [facility] 10/22 19:38 Order name: Troponin I [facility] 10/22 17:40 Order name: IV Saline Lock; Complete Time: 17:51 [facility] 10/22 17:40 Order name: Labs collected and sent; Complete Time: 17:52 [facility] 10/22 17:40 Order name: O2 Per Protocol; Complete Time: 17:40 [facility] 10/22 17:40 Order name: O2 Sat Monitoring; Complete Time: 17:40 [facility] 10/22 17:40 Order name: Urine Dipstick-Ancillary (obtain specimen); Complete Time: 18:11 rk2 Administered Medications: No medications were administered Disposition: 10/22/17 19:25 Hospitalization ordered by Rajiv Gallagher for Observation. Preliminary diagnosis is Chest pain, unspecified. - Bed requested for Telemetry/MedSurg (observation). - Status is Observation. rk2 - Condition is Fair. - Problem is an acute exacerbation. - Symptoms have improved. UTI on Admission? No Signatures: Dispatcher [employer] EDMS Ivett Ruvalcaba RN RN kl Abebe Frederick MD MD kdr Aretha Fabian RN RN rk2 Corrections: (The following items were deleted from the chart) 10/22 20:32 19:25 Hospitalization Ordered by Rajiv Gallagher MD for Observation. Preliminary kl diagnosis is Chest pain, unspecified. Bed requested for Telemetry/MedSurg (observation). Status is Observation. Condition is Fair. Problem is an acute exacerbation. Symptoms have improved. UTI on Admission? No. kdr 22:22 20:32 10/22/2017 19:25 Hospitalization Ordered by Rajiv Gallagher MD for Observation. rk2 Preliminary diagnosis is Chest pain, unspecified. Bed requested for Telemetry/MedSurg (observation). Status is Observation. Condition is Fair. Problem is an acute exacerbation. Symptoms have improved. UTI on Admission? No. kl
[2017-10-22] MEDS ORDERED: ACETAMINOPHEN 500 MG TAB PO PRN (19:34)
[2017-10-22] MEDS ORDERED: ONDANSETRON 4 MG/2 ML VIAL IV PRN (19:34)
--- NOTE | 2017-10-22 19:49 | P.HP ---
Certification for Inpatient Patient admitted to: Observation With expected LOS: <2 Midnights Practitioner: I am a practitioner with admitting privileges, knowledge of patient current condition, hospital course, and medical plan of care. Services: Services provided to patient in accordance with Admission requirements found in Title 42 Section 412.3 of the Code of Federal Regulations Patient History Date of Service: 10/22/17 Reason for admission: chest pain History of Present Illness: Mr Matta is a 52 years old male with history of tobacco abuse, currently smoking 1/2 pack daily (Hx of 35 pack year), HTN, CAD on 09/26/17 the patient presented to this ED with an STEMI, he was transfer to [facility] where he had coronary angiogram with 3 stent placement. According to the patient he was told that still had some remnant blockages not addressed at that time. He presented to ED today with chest pain. The pain start about 3:30 PM, he describes a tightness sensation in substernal area, similar to his previous PA, about 7/10 of intensity, no radiated. He denied any SOB, nausea or diaphoresis episode, however he had lightheadedness. He took a nitro SL, and his pain improved. Initial lab work shows normal trop I, EKG with anterior T wave inversion. Allergies No Known Allergies Allergy (Unverified 09/26/17 18:54) - Past Medical/Surgical History -: CAD S/P PA -: HTN -: tobacco abuse -: Stent x 3 - Family History Family History: Reviewed- Non-Contributory - Social History Smoking Status: Current every day smoker Counseled patient to stop smoking for: less than 10 minutes CD- Drugs: No Place of Residence: Home Review of Systems 10-point ROS is otherwise unremarkable Physical Examination - Physical Exam General: Alert, In no apparent distress HEENT: Atraumatic, PERRLA, Mucous membr. moist/pink, EOMI, Sclerae nonicteric Neck: Supple, 2+ carotid pulse no bruit, No LAD, Without JVD or thyroid abnormality Respiratory: Clear to auscultation bilaterally, Diminished Cardiovascular: Regular rate/rhythm, Normal S1 S2 Gastrointestinal: Normal bowel sounds, No tenderness Musculoskeletal: No tenderness Integumentary: No rashes Neurological: Normal speech, Normal strength at 5/5 x4 extr, Normal tone, Normal affect Lymphatics: No axilla or inguinal lymphadenopathy - Studies Laboratory Data (last 24 hrs) 10/22/17 17:40: PT 12.1, INR 1.03, APTT 20.6 L 10/22/17 17:40: WBC 8.5, Hgb 13.1 L, Hct 40.3, Plt Count 178 10/22/17 17:40: B-Natriuretic Peptide 117 H 10/22/17 17:40: Sodium 137, Potassium 3.7, BUN 18, Creatinine 0.66, Glucose 97, Magnesium 1.8, Total Bilirubin 0.5, AST 24, ALT 27, Alkaline Phosphatase 51 Assessment and Plan - Problems (Diagnosis) (1) CAD (coronary artery disease) Current Visit: Yes Status: Acute Qualifiers: Coronary Disease-Associated Artery/Lesion type: [place] artery [place] vs. transplanted heart: [place] heart Associated angina: with unspecified angina Qualified Code(s): I25.119 - Atherosclerotic heart disease of [place] coronary artery with unspecified angina pectoris (2) Chest pain Current Visit: Yes Status: Acute Qualifiers: Chest pain type: precordial pain Qualified Code(s): R07.2 - Precordial pain (3) HTN (hypertension) Current Visit: Yes Status: Acute Qualifiers: Hypertension type: essential hypertension Qualified Code(s): I10 - Essential (primary) hypertension (4) Tobacco abuse Current Visit: Yes Status: Acute - Plan Mr Matta will be admitted to the hospital under observation due to chest pain in order to rule out ACS. So far negative trop I, EKG without ST abnormalities, showing T wave inversion in the territory where previously (09/26/17) had his PA. Will order ECHO, cardiology consult. Continue plavix, ASA, beta justine, statins. Will order full dose Lovenox. - Advance Directives Does patient have a Living Will: No Does patient have a Durable POA for Healthcare: No - Code Status/Comfort Care Code Status Assessed: Yes Code Status: Full Code
[2017-10-22] MEDS ORDERED: ENOXAPARIN 40 MG/0.4 ML SQ SCH (21:00)
[2017-10-22] MEDS ORDERED: ATORVASTATIN 80 MG TAB PO SCH (22:31)
[2017-10-23] MEDS: CARVEDILOL 6.25 MG TAB PO SCH ×2 (00:42→09:00)
[2017-10-23 03:40] LABS: Absolute Lymphocytes (CBC) 2.1 K/uL (0.7-4.9); Absolute Monocytes 1.3 K/uL (0.1-1.3); Absolute Neutrophil 4.2 K/uL (1.8-8.0); Basophils % 0.9 % (0-1.3); Eosinophils % 2.9 % (0-4.4); Hematocrit 40.1 % (39.6-49.0); MCH 30.4 pg (27.0-35.0); MCV 91.3 fL (80-100); MPV 9.9 fL (7.6-11.3); Monocytes % 15.9 % (3.3-12.3)
[2017-10-23 04:55] LABS: BUN Blood Urea Nitrogen 19 mg/dL (6-20); Bicarbonate 26 mEq/L (21-31); Glucose Level 122 mg/dL (65-120); HDL Cholesterol 27 mg/dL (27-67); LDL Cholesterol, Calculated 51 (<130); Potassium 3.7 mEq/L (3.6-5.0); Sodium Level 138 mEq/L (135-145)
[2017-10-23 06:12] LABS: Blood Morphology Comment NOT SEEN (NOT SEEN); Platelet Estimate ADEQ
--- NOTE | 2017-10-23 07:44 | EKG ---
Test Date: 2017-10-22 Test Time: 16:54:27 Production Supv: SONIA MEASUREMENT RESULTS: Intervals: Rate: 84 IN: 132 QRSD: 104 QT: 372 QTc: 439 [place]: P: 14 IN: 132 QRS: 56 T: 97 INTERPRETIVE STATEMENTS: Normal sinus rhythm Septal infarct, age undetermined Marked T wave abnormality, consider anterolateral ischemia Abnormal ECG Compared to ECG 09/26/2017 17:41:46 T-wave abnormality now present Possible ischemia now present Anterior injury pattern is no longer present Myocardial infarct finding still present Electronically Signed On 10-23-17 07:44:11 CDT by Ad Deng
[2017-10-23] MEDS ORDERED: ENOXAPARIN 40 MG/0.4 ML SQ SCH (09:00)
--- NOTE | 2017-10-23 10:24 | RAD REPORT ---
EXAM DESCRIPTION: ROBINSON - WILLIAM - 10/23/2017 9:44 am CLINICAL HISTORY: Chest pain, possible carotid stenosis COMPARISON: None. TECHNIQUE: Real-time sonographic evaluation of both carotid systems was performed. Doppler interroga tion was performed with waveform tracing bilaterally. FINDINGS: Normal high resistance waveforms are noted in both external carotid arteries. The common c arotid arteries and internal carotid arteries show normal low resistance waveforms. Bilateral common carotid artery intimal thickening is seen. No dissection or visual evidence for sign ificant stenosis. Bilateral carotid bulb atherosclerotic plaquing changes are present also without a significant degree of luminal narrowing. No internal carotid artery high-grade stenosis, dissection o r other significant luminal narrowing process. Peak systolic and end diastolic velocity values and th e ICA/CCA ratios are in the non-hemodynamically significant range. Antegrade flow seen in both vertebral arteries. Velocity values and ratios were recorded and are retained in the patient's imaging records. IMPRESSION: Bilateral atherosclerotic plaquing changes and intimal thickening. Visual inspection lesley ws no significant degree of luminal narrowing and no dissection. Velocity values and ratios indicate no hemodynamically significant stenosis. No evidence of a hemodynamically significant stenosis.
[2017-10-23] MEDS ORDERED: ISOSORBIDE MONO SR 30 MG TAB PO SCH (10:59)
[2017-10-23] MEDS ORDERED: NITROGLYCERIN 0.4 MG/TAB SL SCH (11:00)
--- NOTE | 2017-10-23 11:22 | P.DS ---
Admission Date: 10/22/17 Discharge Date: 10/23/17 Primary Care Provider: [facility] Disposition: ROUTINE DISCHARGE Discharge Condition: GOOD Reason for Admission: chest pain Consultations: Cardiology Dr. Chacon - Hal[place] (1) CAD (coronary artery disease) Onset Date: 10/23/17 Current Visit: Yes Status: Acute Qualifiers: Coronary Disease-Associated Artery/Lesion type: [place] artery [place] vs. transplanted heart: [place] heart Associated angina: with unspecified angina Qualified Code(s): I25.119 - Atherosclerotic heart disease of [place] coronary artery with unspecified angina pectoris (2) Chest pain Onset Date: 10/23/17 Current Visit: Yes Status: Acute Qualifiers: Chest pain type: precordial pain Qualified Code(s): R07.2 - Precordial pain (3) HTN (hypertension) Onset Date: 10/23/17 Current Visit: Yes Status: Acute Qualifiers: Hypertension type: essential hypertension Qualified Code(s): I10 - Essential (primary) hypertension (4) Tobacco abuse Onset Date: 10/23/17 Current Visit: Yes Status: Acute Brief History of Present Illness: From H and P Mr Matta is a 52 years old male with history of tobacco abuse, currently smoking 1/2 pack daily (Hx of 35 pack year), HTN, CAD on 09/26/17 the patient presented to this ED with an STEMI, he was transfer to [facility] where he had coronary angiogram with 3 stent placement. According to the patient he was told that still had some remnant blockages not addressed at that time. He presented to ED today with chest pain. The pain start about 3:30 PM, he describes a tightness sensation in substernal area, similar to his previous [place], about 7/10 of intensity, no radiated. He denied any SOB, nausea or diaphoresis episode, however he had lightheadedness. He took a nitro SL, and his pain improved. Initial lab work shows normal trop I, EKG with anterior T wave inversion. Hospital Course: She is a 52-year-old male with past medical history of coronary artery disease status post stent of last month who comes in with chest pain. Patient's troponin was negative x3. ACS was ruled out. No acute changes on EKG. Patient was seen by cardiology. His medications were adjusted. Of note patient has low blood pressure and heart rate in the 60s unable to tolerate much higher doses of beta-justine and is lisinopril will be decreased. Imdur was added. Patient understands that if his blood pressure is less than 90/70 systolic he should hold his blood pressure medication. Patient had resolution of his chest pain. Echocardiogram showed normal EF. Carotid Doppler showed mild plaquing but no hemodynamically significant stenosis. Patient was asymptomatic. Patient was cleared by cardiology for close followup next week. Patient counseled to quit smoking completely smokes half a pack per day. He voiced understanding. He understands risks involved with continued smoking. Vital Signs/Physical Exam: Temp Pulse Resp BP Pulse Ox 97.7 F 69 14 98/67 96 10/23/17 08:00 10/23/17 09:00 10/23/17 08:00 10/23/17 09:00 10/23/17 08:00 General: Alert, In no apparent distress, Oriented x3 HEENT: Atraumatic, PERRLA, EOMI Neck: Supple, JVD not distended Respiratory: Clear to auscultation bilaterally, Normal air movement Cardiovascular: No edema, Normal pulses, Regular rate/rhythm, Normal S1 S2 Gastrointestinal: Normal bowel sounds, Soft and benign, Non-distended, No tenderness Musculoskeletal: No clubbing, No tenderness Integumentary: No rashes, No cyanosis Neurological: Normal speech, Normal tone, Normal affect Laboratory Data at Discharge: WBC 7.9 K/uL (4.3-10.9) 10/23/17 03:23 Hgb 13.4 g/dL (13.6-17.9) L 10/23/17 03:23 Hct 40.1 % (39.6-49.0) 10/23/17 03:23 Plt Count 165 K/uL (152-406) 10/23/17 03:23 PT 12.1 SECONDS (9.5-12.5) 10/22/17 17:40 INR 1.03 10/22/17 17:40 APTT 20.6 SECONDS (24.3-36.9) L 10/22/17 17:40 Sodium 138 mEq/L (135-145) 10/23/17 03:23 Potassium 3.7 mEq/L (3.6-5.0) 10/23/17 03:23 BUN 19 mg/dL (6-20) 10/23/17 03:23 Creatinine 0.71 mg/dL (0.61-1.24) 10/23/17 03:23 Glucose 122 mg/dL (65-120) H 10/23/17 03:23 Magnesium 1.8 mg/dL (1.8-2.5) 10/22/17 17:40 Total Bilirubin 0.5 mg/dL (0.3-1.2) 10/22/17 17:40 AST 24 IU/L (10-42) 10/22/17 17:40 ALT 27 IU/L (10-60) 10/22/17 17:40 Alkaline Phosphatase 51 IU/L (42-121) 10/22/17 17:40 Troponin I < 0.03 ng/mL (<0.03) 10/23/17 08:11 B-Natriuretic Peptide 117 pg/ml (<=100) H 10/22/17 17:40 Triglycerides 122 mg/dL (35-160) 10/23/17 03:23 Cholesterol 102 mg/dL (<200) 10/23/17 03:23 HDL Cholesterol 27 mg/dL (27-67) 10/23/17 03:23 Cholesterol/HDL Ratio 3.78 10/23/17 03:23 Home Medications: Aspirin Chewable [Aspirin Chewable*] 81 mg PO DAILY 10/22/17 Atorvastatin Calcium [Lipitor] 80 mg PO DAILY 10/22/17 Clopidogrel Bisulfate [Plavix*] 75 mg PO DAILY 10/22/17 Nitroglycerin [Nitrostat*] 0.4 mg SL PRN 10/22/17 Carvedilol [Coreg*] 6.25 mg PO BID #30 tab 10/23/17 Isosorbide Mononitrate [Isosorbide Mononitrate ER] 30 mg PO DAILY #30 tab.er.24h 10/23/17 Lisinopril 10 mg PO DAILY #30 tablet 10/23/17 New Medications: Carvedilol [Coreg*] 6.25 mg PO BID #30 tab Isosorbide Mononitrate [Isosorbide Mononitrate ER] 30 mg PO DAILY #30 tab.er.24h Lisinopril 10 mg PO DAILY #30 tablet Patient Discharge Instructions: f/up w PCP in 2-3 days ([facility] ). f/up w climate change risk assessor Dr. Chacon in 2 weeks. Return to ER for worsening condition Diet: AHA Activity: Ad shlomo
--- NOTE | 2017-10-23 12:35 | ECHO ---
HEIGHT: 6 ft 1 in WEIGHT: 170 lb 0 oz DATE OF STUDY: 10/23/[address]: Rajiv Posey MD 2-DIMENSIONAL: YES M.MODE: YES DOPPLER: YES COLOR FLOW: YES TDS: NO PORTABLE: NO DEFINITY: NO BUBBLE STUDY: NO DIAGNOSIS: CHEST PAIN CARDIAC HISTORY: CATHERIZATION: NO SURGERY: NO PROSTHETIC VALVE: NO PACEMAKER: NO MEASUREMENTS (cm) DIASTOLIC (NORMALS) SYSTOLIC (NORMALS) IVSd 1.0 (0.6-1.2) LA Diam 3.5 (1.9-4.0) LVEF 63% LVIDd 4.2 (3.5-5.7) LVIDs 2.8 (2.0-3.5) %FS 33% LVPWd 1.0 (0.6-1.2) Ao Diam 2.8 (2.0-3.7) 2 DIMENSIONAL ASSESSMENT: RIGHT ATRIUM: NORMAL LEFT ATRIUM: NORMAL RIGHT VENTRICLE: NORMAL LEFT VENTRICLE: NORMAL TRICUSPID VALVE: NORMAL MITRAL VALVE: NORMAL PULMONIC VALVE: NORMAL AORTIC VALVE: NORMAL PERICARDIAL EFFUSION: NONE AORTIC ROOT: NORMAL LEFT VENTRICULAR WALL MOTION: APICAL, DISTAL SEPTAL HYPOKINESIS. DOPPLER/COLOR FLOW: MILD AORTIC REGURGITATION. MILD TRICUSPID REGURGITATION. NORMAL RIGHT VENTRICULAR SYSTOLIC PRESSURE. COMMENTS: NORMAL LEFT VENTRICULAR EJECTION FRACTION WITH WALL MOTION ABNORMALITY. MILD AORTIC REGURGITATION. MILD TRICUSPID REGURGITATION. TECHNOLOGIST: ROMA NEIL
--- NOTE | 2017-10-23 16:22 | EKG ---
Test Date: 2017-10-23 Test Time: 08:40:33 Eye Technician: MAYLIN MEASUREMENT RESULTS: Intervals: Rate: 71 [place]: 130 QRSD: 96 QT: 424 QTc: 460 [place]: P: 15 [place]: 130 QRS: 70 T: 93 INTERPRETIVE STATEMENTS: Normal sinus rhythm Anterior infarct, age undetermined Abnormal ECG Compared to ECG 10/22/2017 16:54:27 T-wave abnormality no longer present Possible ischemia no longer present Myocardial infarct finding still present Electronically Signed On 10-23-17 16:19:48 CDT by Neal Chacon
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
[2017-10-24] MEDS ORDERED: ASPIRIN 81 MG CHEWABLE TABLET PO SCH (09:00)
[2017-10-24] MEDS ORDERED: CLOPIDOGREL 75 MG TABLET PO SCH (09:00)
[2017-10-24] MEDS ORDERED: LISINOPRIL 20 MG TAB PO SCH (09:00)
== END 2017-10-23 12:01 | disposition home or self-care (01) ==
LOC: ER 16:50 → ERHOLD 19:26 → 4TH 20:58
PROVIDERS: ADMIT Internal Medicine; ATTEND Internal Medicine
DX: I25.119 Atherosclerotic heart disease of native coronary artery with unspecified angina pectoris (principal); Z95.5 Presence of coronary angioplasty implant and graft; I10 Essential (primary) hypertension; I25.2 Old myocardial infarction; F17.210 Nicotine dependence, cigarettes, uncomplicated
CPT/HCPCS: 36415; 71045; 80048; 80061; 80076; 81003; 82550; 82553; 83735; 83880; 84484; 85025; 85610; 85730; 93005; 93306; 93880; 94760; 99285; G0378

== ENCOUNTER 2018-10-19 16:33 | Emergency (ER) | payer SELFPAY ==
--- OUTSIDE RECORDS SUMMARY | 2018-10-19 17:11 | XMS REPORT | Clinical Summary ---
:1965 Author Organization [facility] Address [address] [place] [address] Care Team Providers Name Role Phone Unavailable Primary Care Provider Unavailable Allergies No Known Allergies Medications Medication Sig Dispensed Refills Start Date End Date Status nitroglycerin Place 1 tablet 90 tablet 0 09/28/2017 Active (NITROSTAT) 0.4 MG SL (0.4 mg total) tablet under the tongue every 5 (five) minutes as needed for Chest pain. aspirin 81 MG EC Take 1 tablet 30 tablet 11 09/29/2017 09/29/2018 tablet (81 mg total) by mouth daily. atorvastatin (LIPITOR) Take 1 tablet 30 tablet 11 09/28/2017 09/28/2018 80 MG tablet (80 mg total) by mouth nightly. carvedilol (COREG) Take 1 tablet 60 tablet 11 09/28/2017 09/28/2018 6.25 MG tablet (6.25 mg total) by mouth 2 (two) times daily. clopidogrel (PLAVIX) Take 1 tablet 30 tablet 11 09/29/2017 09/29/2018 75 mg tablet (75 mg total) by mouth daily. lisinopril Take 1 tablet 30 tablet 11 09/29/2017 09/29/2018 (PRINIVIL,ZESTRIL) 20 (20 mg total) MG tablet by mouth daily. nicotine (NICODERM CQ) Place 1 patch 30 patch 0 09/29/2017 10/29/2017 14 mg/24 hr patch onto the skin daily for 30 days. Active Problems Problem Noted Date Tobacco abuse 09/27/2017 Essential hypertension 09/27/2017 STEMI (ST elevation myocardial infarction) 09/26/2017 Social History Tobacco Use Types Packs/Day Years Used Date Current Every Day Smoker 1.5 Smokeless Tobacco: Never Used Tobacco Cessation: Ready to Quit: Yes; Counseling Given: Yes Alcohol Use Drinks/Week oz/Week Comments No Sex Assigned at Date Recorded Not on file Job Start Date Occupation Industry Not on file Not on file Not on file Travel History Travel Start Travel End No recent travel history available. Last Filed Vital Signs Not on file Plan of Treatment Not on file Implants Implanted Type Area Envelope Fold Operator Device Shelf Model / Identifier Expiration Serial / Date Lot Promus Premier Stents-C N/A: [employer] 12/28/2018 [id number] / Implanted: Qty: 1 on 09/26/2017 by Chencho Valladares MD [facility] [employer] / [id number] Promus Premier Stents-C N/A: [employer] 09/14/2018 [id number] / Implanted: Qty: 1 on 09/26/2017 by Chencho Valladares MD [facility] [employer] / [id number] Promus Premier Stents-C N/A: [employer] 12/28/2018 [id number] / Implanted: Qty: 1 on 09/26/2017 by Chencho Valladares MD [facility] [employer] / [id number] Promus Premier Stents-C N/A: [employer] 12/20/2018 [id number] / Implanted: Qty: 1 on 09/26/2017 by Chencho Valladares MD [facility] Coronary [employer] / [id number] Results Not on fileafter 10/18/2017 Advance Directives For more information, please contact:[address] [phone] Code Status Date Activated Date Inactivated Comments Full Code 09/26/2017 7:33 PM 09/28/2017 7:47 PM This code status was determined by: Patient
--- OUTSIDE RECORDS SUMMARY | 2018-10-19 17:12 | XMS REPORT ---
:1965 [facility] Address [address] [place] [address] Care Team Providers Name Role Phone PRADEEP STEEL Unavailable Unavailable Problems This patient has no known problems. Allergies, Adverse Reactions, Alerts This patient has no known allergies or adverse reactions. Medications This patient has no known medications. Results Test Description Test Time Test Comments Text Results Atomic Results Result Comments BLOOD CULTURE 2017-10-02 12:00:00 Test Item Value Reference Range Comments CULTURE (BEAKER) (test zhhx=5714) No growth in 5 days BLOOD [id number] 12:00:00 Test Item Value Reference Range Comments CULTURE (BEAKER) (test iviy=4732) No growth in 5 days [id number] 07:30:00 Test Item Value Reference Range Comments MAGNESIUM (BEAKER) (test xzsn=514) 1.9 mg/dL 1.6-2.6 BASIC METABOLIC [id number] 07:30:00 Test Item Value Reference Range Comments SODIUM (BEAKER) (test 137 meq/L 136-145 kheu=039) POTASSIUM (BEAKER) (test 4.0 meq/L 3.5-5.1 mxkc=318) CHLORIDE (BEAKER) (test 108 meq/L 98-107 giei=263) CO2 (BEAKER) (test 21 meq/L 22-29 qwyb=006) BLOOD UREA NITROGEN 12 mg/dL 7-21 (BEAKER) (test fulx=493) CREATININE (BEAKER) (test 0.69 mg/dL 0.57-1.25 onqg=401) GLUCOSE RANDOM (BEAKER) 93 mg/dL 70-105 (test tael=340) CALCIUM (BEAKER) (test 9.4 mg/dL 8.4-10.2 kgle=220) EGFR (BEAKER) (test 121 mL/min/1.73 sq m ESTIMATED GFR IS NOT uwrn=3853) ACCURATE CREATININE CLEARANCE IN PREDICTING GLOMERULAR FILTRATION RATE. ESTIMATED GFR IS NOT APPLICABLE FOR DIALYSIS PATIENTS. CBC (HEMOGRAM ONLY)2017-09-28 07:02:00 Test Item Value Reference Range Comments WHITE BLOOD CELL COUNT (BEAKER) (test kbte=256) 11.9 K/ L 3.5-10.5 RED BLOOD CELL COUNT (BEAKER) (test bxuo=898) 5.10 M/ L 4.63-6.08 HEMOGLOBIN (BEAKER) (test vhyy=772) 15.1 GM/DL 13.7-17.5 HEMATOCRIT (BEAKER) (test kiqy=058) 47.4 % 40.1-51.0 MEAN CORPUSCULAR VOLUME (BEAKER) (test wdry=056) 92.9 fL 79.0-92.2 MEAN CORPUSCULAR HEMOGLOBIN (BEAKER) (test 29.6 pg 25.7-32.2 hgvk=388) MEAN CORPUSCULAR HEMOGLOBIN CONC (BEAKER) (test 31.9 GM/DL 32.3-36.5 wkxf=975) RED CELL DISTRIBUTION WIDTH (BEAKER) (test 12.6 % 11.6-14.4 xbrc=241) PLATELET COUNT (BEAKER) (test mefe=766) 178 K/CU MM 150-450 MEAN PLATELET VOLUME (BEAKER) (test owlf=461) 11.8 fL 9.4-12.4 NUCLEATED RED BLOOD CELLS (BEAKER) (test 0 /100 WBC 0-0 qkkk=335) TROPONIN [id number] 22:02:00 Test Item Value Reference Range Comments TROPONIN I (BEAKER) (test pzgi=600) 63.70 ng/mL 0.00-0.03 Troponin I (TnI) levels [...] neurological disease, and persistent tachyarrhythmia.TSH/FREE T4 IF [id number] 16:05 :00 Test Item Value Reference Range Comments THYROID STIMULATING HORMONE (BEAKER) (test 1.30 uIU/mL 0.35-4.94 aqsb=946) Draw next time labs are dueTROPONIN [id number] 14:46:00 Test Item Value Reference Range Comments TROPONIN I (BEAKER) (test mcek=372) 100.07 ng/mL 0.00-0.03 Troponin I (TnI) levels [...] acidosis, acute neurological disease, and persistent tachyarrhythmia.HEMOGLOBIN [id number] 12:38:00 Test Item Value Reference Range Comments HEMOGLOBIN A1C (BEAKER) (test kbkr=019) 5.2 % 4.3-6.1 RAPID DRUG SCREEN, [id number] 10:53:00 Test Item Value Reference Range Comments BARBITURATE URINE (BEAKER) (test znvi=313) Negative Negative BENZODIAZEPINE SCREEN URINE (BEAKER) (test Positive Negative lcwa=760) COCAINE (METAB.) SCREEN (BEAKER) (test vdim=2565) Negative Negative METHADONE SCREEN (BEAKER) (test xlfw=7890) Negative Negative OPIATE SCREEN URINE (BEAKER) (test rvyc=805) Positive Negative CANNABINOID SCREEN URINE (BEAKER) (test ndaq=533) Negative Negative AMPH/METHAMPH SCREEN (BEAKER) (test qwbu=8383) Negative Negative PHENCYCLIDINE SCREEN URINE (BEAKER) (test bbyy=595) Negative Negative OXYCODONE SCREEN URINE (BEAKER) (test kggd=6686) Negative Negative DRUG CUTOFF CONC.Cocaine 300 ng/mL Cannabinoid 50 ng/mL Benzodiazepine 200 ng/mLBarbiturate 200 ng/ mLPhencyclidine 25 ng/mLOpiate 300 ng/mLMethadone 300 ng/mLAmphetamine/ 1000 ng/mL MethamphetamineOxycodone 300 ng/mLThis assay provides an unconfirmed qualitative test result for the clinical management of patients in emergency situations. Chain of custody not maintained. Some exne-pnw-emtfjxe medications, as well as adulterants, may cause inaccurate results. Clinical correlation should be applied. A more comprehensive drug screen or confirmation of a detected drug may be performed upon request.LIPID [id number] 09:21:00 Test Item Value Reference Range Comments TRIGLYCERIDES (BEAKER) (test ipkv=433) 128 mg/dL CHOLESTEROL (BEAKER) (test ftpz=636) 181 mg/dL HDL CHOLESTEROL (BEAKER) (test jqnm=888) 32 mg/dL LDL CHOLESTEROL CALCULATED (BEAKER) (test 123 mg/dL mxzt=582) Triglyceride Reference Range: Low Risk <150 Borderline 150- 199 High Risk 200-499 Very High Risk >=500Cholesterol Reference Range: Low Risk <200 Borderline 200-239 High Risk > 240HDL Cholesterol Reference Range: Low Risk >=60 High Risk <40LDL Cholesterol Reference Range: Optimal <100 Near Optimal 100-129 Borderline 130-159 High 160-189 Very High >=190TROPONIN [id number] 07:55:00 Test Item Value Reference Range Comments TROPONIN I (BEAKER) (test zjyh=061) 72.42 ng/mL 0.00-0.03 Troponin I (TnI) levels [...] failure, acidosis, acute neurological disease, and persistent tachyarrhythmia.[id number] 06:39:00 Test Item Value Reference Range Comments PROTIME (BEAKER) (test vmxw=145) 13.2 seconds 11.7-14.7 INR (BEAKER) (test fevi=424) 1.0 <=5.9 PARTIAL THROMBOPLASTIN TIME (BEAKER) (test 29.7 seconds 22.5-36.0 wgyh=485) RECOMMENDED COUMADIN/WARFARIN INR THERAPY RANGESSTANDARD DOSE: 2.0 - 3.0 Includes: PROPHYLAXIS forvenous thrombosis, systemic embolization; TREATMENT for venous thrombosis and/or pulmonary embolus.HIGH RISK: Target INR is 2.5-3.5 for patients with mechanical heart valves.URINALYSIS W/ [id number] 06 :31:00 Test Item Value Reference Range Comments COLOR (BEAKER) (test tscr=202) Yellow CLARITY (BEAKER) (test vmwa=681) Clear SPECIFIC GRAVITY UA (BEAKER) (test > 1.001-1.035 dyox=085) PH UA (BEAKER) (test ccyo=405) 6.5 5.0-8.0 PROTEIN UA (BEAKER) (test vtfi=558) 10 mg/dL Negative GLUCOSE UA (BEAKER) (test tvwf=744) Negative Negative KETONES UA (BEAKER) (test koem=976) 20 mg/dL Negative BILIRUBIN UA (BEAKER) (test Negative Negative omoj=153) BLOOD UA (BEAKER) (test tvjv=982) Negative Negative NITRITE UA (BEAKER) (test ugnw=101) Negative Negative LEUKOCYTE ESTERASE UA (BEAKER) Negative Negative (test lfiw=210) UROBILINOGEN UA (BEAKER) (test 0.2 mg/dL 0.2-1.0 yzyf=380) RBC UA (BEAKER) (test exbd=490) 1 /HPF WBC UA (BEAKER) (test esbq=700) 1 /HPF MUCUS (BEAKER) (test tzcr=5162) Rare SOURCE(BEAKER) (test ltkz=8791) Urine, Straight Catheter BASIC METABOLIC [id number] 06:09:00 Test Item Value Reference Range Comments SODIUM (BEAKER) (test 136 meq/L 136-145 njsf=106) POTASSIUM (BEAKER) (test 4.2 meq/L 3.5-5.1 fhgd=752) CHLORIDE (BEAKER) (test 105 meq/L 98-107 dcbd=029) CO2 (BEAKER) (test 23 meq/L 22-29 icpi=921) BLOOD UREA NITROGEN 10 mg/dL 7-21 (BEAKER) (test mfdd=454) CREATININE (BEAKER) (test 0.74 mg/dL 0.57-1.25 bich=760) GLUCOSE RANDOM (BEAKER) 120 mg/dL 70-105 (test jnkn=399) CALCIUM (BEAKER) (test 8.8 mg/dL 8.4-10.2 espa=937) EGFR (BEAKER) (test 112 mL/min/1.73 sq m ESTIMATED GFR IS NOT xezv=9855) ACCURATE CREATININE CLEARANCE IN PREDICTING GLOMERULAR FILTRATION RATE. ESTIMATED GFR IS NOT APPLICABLE FOR DIALYSIS PATIENTS. CBC W/PLT COUNT & AUTO [id number] 05:57:00 Test Item Value Reference Range Comments WHITE BLOOD CELL COUNT (BEAKER) (test jkdv=594) 15.3 K/ L 3.5-10.5 RED BLOOD CELL COUNT (BEAKER) (test gnev=506) 4.56 M/ L 4.63-6.08 HEMOGLOBIN (BEAKER) (test sqkd=932) 13.8 GM/DL 13.7-17.5 HEMATOCRIT (BEAKER) (test ljdg=426) 42.8 % 40.1-51.0 MEAN CORPUSCULAR VOLUME (BEAKER) (test hvum=298) 93.9 fL 79.0-92.2 MEAN CORPUSCULAR HEMOGLOBIN (BEAKER) (test 30.3 pg 25.7-32.2 sfce=257) MEAN CORPUSCULAR HEMOGLOBIN CONC (BEAKER) (test 32.2 GM/DL 32.3-36.5 nuxw=566) RED CELL DISTRIBUTION WIDTH (BEAKER) (test 12.8 % 11.6-14.4 cqvh=631) PLATELET COUNT (BEAKER) (test ewny=307) 181 K/CU MM 150-450 MEAN PLATELET VOLUME (BEAKER) (test bbcw=364) 11.5 fL 9.4-12.4 NUCLEATED RED BLOOD CELLS (BEAKER) (test 0 /100 WBC 0-0 bjuz=180) NEUTROPHILS RELATIVE PERCENT (BEAKER) (test 75 % qsfo=816) LYMPHOCYTES RELATIVE PERCENT (BEAKER) (test 12 % qzfc=895) MONOCYTES RELATIVE PERCENT (BEAKER) (test 11 % xtfu=527) EOSINOPHILS RELATIVE PERCENT (BEAKER) (test 1 % minl=012) BASOPHILS RELATIVE PERCENT (BEAKER) (test 0 % hioi=690) NEUTROPHILS ABSOLUTE COUNT (BEAKER) (test 11.48 K/ L 1.78-5.38 aexh=028) LYMPHOCYTES ABSOLUTE COUNT (BEAKER) (test 1.88 K/ L 1.32-3.57 rkxx=042) MONOCYTES ABSOLUTE COUNT (BEAKER) (test 1.73 K/ L 0.30-0.82 vnni=758) EOSINOPHILS ABSOLUTE COUNT (BEAKER) (test 0.12 K/ L 0.04-0.54 tfuw=168) BASOPHILS ABSOLUTE COUNT (BEAKER) (test 0.04 K/ L 0.01-0.08 cknc=377) IMMATURE GRANULOCYTES-RELATIVE PERCENT ([facility]) 1 % 0-1 (test fuqz=2935) [id number] 01:38:00 Test Item Value Reference Range Comments ACTIVATED CLOTTING TIME 131 sec TESTED AT [facility] [address] [facility] ([place]) (test vmfp=292) [place] [id number] 01:38:00 Test Item Value Reference Range Comments ACTIVATED CLOTTING TIME 147 sec TESTED AT [facility] [address] [facility] (BEAKER) (test xlmp=376) [facility] [id number] RAD, CHEST, 1 VIEW, NON [id number] 23:46:00Reason for exam:->STEMIShould this be performed at the bedside?->YesFINAL REPORT History: PA. Comparison: None. Findings: A single view of [...] or acute bony abnormality. Signed: Michael Sequeira MDReport Verified Date/Time: 09/26/2017 23:46:29 Reading Location: [address] Reading Room TROPONIN [id number] 22:47:00 Test Item Value Reference Range Comments TROPONIN I (RUBIA) (test vplu=651) 56.52 ng/mL 0.00-0.03 Troponin I (TnI) levels [...] failure, acidosis, acute neurological disease, and persistent tachyarrhythmia.[id number] 22:39:00 Test Item Value Reference Range Comments PARTIAL THROMBOPLASTIN TIME (RUBIA) (test > seconds 22.5-36.0 igmz=944) B-TYPE NATRIURETIC FACTOR (BNP)2017-09-26 22:27:00 Test Item Value Reference Range Comments B-TYPE NATRIURETIC PEPTIDE (BEAKER) (test dpka=063) 71 pg/mL 0-100 [id number] 22:20:00 Test Item Value Reference Range Comments MAGNESIUM (BEAKER) (test 1.9 mg/dL 1.6-2.6 Specimen slightly hemolyzed jyko=532) [id number] 22:20:00 Test Item Value Reference Range Comments PHOSPHORUS (BEAKER) (test 3.6 mg/dL 2.3-4.7 Specimen slightly hemolyzed rmmn=563) BASIC METABOLIC [id number] 22:20:00 Test Item Value Reference Range Comments SODIUM (BEAKER) (test 136 meq/L 136-145 sxmv=834) POTASSIUM (BEAKER) (test 4.0 meq/L 3.5-5.1 Specimen slightly tbcw=660) hemolyzed CHLORIDE (BEAKER) (test 107 meq/L 98-107 cnaa=626) CO2 (BEAKER) (test 19 meq/L 22-29 ylbg=279) BLOOD UREA NITROGEN 12 mg/dL 7-21 (BEAKER) (test ccou=873) CREATININE (BEAKER) (test 0.68 mg/dL 0.57-1.25 Specimen slightly sidh=915) hemolyzed GLUCOSE RANDOM (BEAKER) 122 mg/dL 70-105 (test jhth=612) CALCIUM (BEAKER) (test 8.6 mg/dL 8.4-10.2 sgid=790) EGFR (BEAKER) (test 123 mL/min/1.73 sq m ESTIMATED GFR IS NOT soyc=8447) ACCURATE CREATININE CLEARANCE IN PREDICTING GLOMERULAR FILTRATION RATE. ESTIMATED GFR IS NOT APPLICABLE FOR DIALYSIS PATIENTS. HEPATIC FUNCTION [id number] 22:20:00 Test Item Value Reference Range Comments TOTAL PROTEIN (BEAKER) (test 6.6 gm/dL 6.0-8.3 Specimen slightly hemolyzed lkzr=492) ALBUMIN (BEAKER) (test 3.9 g/dL 3.5-5.0 Specimen slightly hemolyzed kxuz=8701) BILIRUBIN TOTAL (BEAKER) (test 0.5 mg/dL 0.2-1.2 Specimen slightly hemolyzed sxau=152) BILIRUBIN DIRECT (BEAKER) (test 0.2 mg/dL 0.1-0.5 Specimen slightly hemolyzed cbab=820) ALKALINE PHOSPHATASE (BEAKER) 65 U/L 40-150 (test rknd=845) AST (SGOT) (BEAKER) (test 214 U/L 5-34 Specimen slightly hemolyzed mmug=160) ALT (SGPT) (BEAKER) (test 39 U/L 6-55 Specimen slightly hemolyzed ifhy=714) PROTHROMBIN TIME/[id number] 22:19:00 Test Item Value Reference Range Comments PROTIME (BEAKER) (test erfy=459) 15.5 seconds 11.7-14.7 INR (BEAKER) (test mlrs=996) 1.2 <=5.9 RECOMMENDED COUMADIN/WARFARIN INR THERAPY RANGESSTANDARD DOSE: 2.0 - 3.0 Includes: PROPHYLAXIS forvenous thrombosis, systemic embolization; TREATMENT for venous thrombosis and/or pulmonary embolus.HIGH RISK: Target INR is 2.5-3.5 for patients with mechanical heart valves.CBC W/PLT COUNT & AUTO [id number] 22:03:00 Test Item Value Reference Range Comments WHITE BLOOD CELL COUNT (BEAKER) (test jvct=616) 15.7 K/ L 3.5-10.5 RED BLOOD CELL COUNT (BEAKER) (test bpyv=680) 4.35 M/ L 4.63-6.08 HEMOGLOBIN (BEAKER) (test gmri=093) 13.4 GM/DL 13.7-17.5 HEMATOCRIT (BEAKER) (test ejlf=886) 40.1 % 40.1-51.0 MEAN CORPUSCULAR VOLUME (BEAKER) (test gpez=580) 92.2 fL 79.0-92.2 MEAN CORPUSCULAR HEMOGLOBIN (BEAKER) (test 30.8 pg 25.7-32.2 dzzq=075) MEAN CORPUSCULAR HEMOGLOBIN CONC (BEAKER) (test 33.4 GM/DL 32.3-36.5 taiv=443) RED CELL DISTRIBUTION WIDTH (BEAKER) (test 12.6 % 11.6-14.4 pizf=284) PLATELET COUNT (BEAKER) (test dwph=677) 177 K/CU MM 150-450 MEAN PLATELET VOLUME (BEAKER) (test anii=614) 11.4 fL 9.4-12.4 NUCLEATED RED BLOOD CELLS (BEAKER) (test 0 /100 WBC 0-0 tcyf=077) NEUTROPHILS RELATIVE PERCENT (BEAKER) (test 80 % gkex=229) LYMPHOCYTES RELATIVE PERCENT (BEAKER) (test 11 % xosg=949) MONOCYTES RELATIVE PERCENT (BEAKER) (test 7 % keor=315) EOSINOPHILS RELATIVE PERCENT (BEAKER) (test 1 % nxfv=895) BASOPHILS RELATIVE PERCENT (BEAKER) (test 0 % czdg=229) NEUTROPHILS ABSOLUTE COUNT (BEAKER) (test 12.50 K/ L 1.78-5.38 qkzx=442) LYMPHOCYTES ABSOLUTE COUNT (BEAKER) (test 1.78 K/ L 1.32-3.57 uyti=139) MONOCYTES ABSOLUTE COUNT (BEAKER) (test 1.08 K/ L 0.30-0.82 ehkh=067) EOSINOPHILS ABSOLUTE COUNT (BEAKER) (test 0.14 K/ L 0.04-0.54 deet=672) BASOPHILS ABSOLUTE COUNT (BEAKER) (test 0.06 K/ L 0.01-0.08 yvoi=371) IMMATURE GRANULOCYTES-RELATIVE PERCENT (BEAKER) 1 % 0-1 (test pvmr=9584) [id number] 21:55:00 Test Item Value Reference Range Comments ACTIVATED CLOTTING TIME 208 sec TESTED AT [place] [id number] [facility] (BEAKER) (test luac=454) [place] [address] [id number] 19:50:00 Test Item Value Reference Range Comments ACTIVATED CLOTTING TIME 301 sec TESTED AT [facility] [address] (BEAKER) (test ivcm=269) [place] [address]
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
[2018-10-19] MEDS ORDERED: ACETAMINOPHEN 500 MG TAB ONE (17:46)
[2018-10-19] MEDS ORDERED: DIAZEPAM 10 MG/2 ML INJ SYRINGE ONE (17:47)
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
== END 2018-10-19 19:31 | disposition home or self-care (01) ==
LOC: ER 16:33
DX: S13.4XXA Sprain of ligaments of cervical spine, initial encounter (principal); S33.5XXA Sprain of ligaments of lumbar spine, initial encounter; V49.40XA Driver injured in collision with unspecified motor vehicles in traffic accident, initial encounter; I10 Essential (primary) hypertension; I25.2 Old myocardial infarction
CPT/HCPCS: 70450; 71045; 72100; 72125; 96374; 99285; J3360

== ENCOUNTER 2019-02-12 21:45 | Emergency (ER) | payer SELFPAY ==
--- OUTSIDE RECORDS SUMMARY | 2019-02-12 21:47 | XMS REPORT | Clinical Summary ---
:1965 Author Organization [facility] Address [address] [place] [address] Care Team Providers Name Role Phone Unavailable [...] mg total) MG tablet by mouth daily. Active Problems Problem Noted Date Tobacco abuse [...] Not on file Implants Implanted Type Area Quality Assurance Test Program Manager Device Shelf Model / Identifier Expiration Serial / Date Lot Promus Premier Stents-C N/A: [place] 12/28/2018 [id number] / Implanted: Qty: 1 on 09/26/2017 by [facility] [employer] / [id number] Promus Premier Stents-C N/A: [place] 09/14/2018 [id number] / Implanted: Qty: 1 on 09/26/2017 by Chencho Valladares MD [facility] [employer] / [id number] Promus Premier Stents-C N/A: [place] 12/28/2018 [id number] / Implanted: Qty: 1 on 09/26/2017 by Chencho Valladares MD [facility] [employer] / [id number] Promus Premier Stents-C N/A: [place] 12/20/2018 [id number] / Implanted: Qty: 1 on 09/26/2017 by Chencho Valladares MD [facility] [employer] / [id number] Results Not on fileafter 02/11/2018 Advance Directives For more information, please contact:[place] [address] [address] [place], [place] [phone] Code Status Date Activated Date Inactivated Comments Full Code 09/26/2017 7:33 PM 09/28/2017 7:47 PM This code status was determined by: Patient
--- OUTSIDE RECORDS SUMMARY | 2019-02-12 21:48 | XMS REPORT | Summary of Care ---
:1965 Author Organization [facility] Address [address] [place] [address] Care Team Providers Name Role Phone Gregg Lassiter INTERCHANGE AGENT Primary Care Provider Reason for Visit Reason Comments Refill Request clopidogrel 75 mg tablet Encounter Details Date Type Department Care Team Description 01/23/2019 Refill [facility] Pediatrics & Gregg Lassiter, Refill Request Adult Primary Care- INTERCHANGE AGENT (clopidogrel 75 mg [place] [id number] [address] tablet) [address] [address] [place], [place] [phone] [phone] Allergies No Known Allergiesdocumented as of this encounter (statuses as of 01/27/2019) Medications Medication Sig Dispensed Refills Start Date End Date Status aspirin 81 mg EC Take 81 mg by 0 Active tabletIndications: mouth daily. Coronary artery disease involving jackson coronary artery of jackson heart without angina pectoris, Essential hypertension nitroglycerin 0.[address] 0.4 mg 0 Active sublingual under the tongue tabletIndications: every 5 (five) Coronary artery disease minutes as involving jackson needed for Chest coronary artery of pain. Not to jackson heart without exceed 3 doses angina pectoris, Essential hypertension ibuprofen 600 mg Take 600 mg by 0 Active tabletIndications: mouth every 6 Coronary artery disease (six) hours as involving jackson needed. coronary artery of jackson heart without angina pectoris, Essential hypertension, Cigarette nicotine dependence without complication, Dyslipidemia, History of ST elevation myocardial infarction (STEMI), POPE (dyspnea on exertion), Fatigue, unspecified type isosorbide mononitrate TAKE 1 TABLET BY 30 tablet 2 10/29/2018 Active 30 mg 24 hr MOUTH ONCE DAILY tabletIndications: Coronary artery disease involving jackson coronary artery of jackson heart without angina pectoris lisinopril 10 mg Take 1 tablet by 30 tablet 4 10/29/2018 Active tabletIndications: mouth daily. Essential hypertension atorvastatin 80 mg Take 1 tablet by 30 tablet 5 11/27/2018 Active tabletIndications: Mixed mouth at hyperlipidemia bedtime. documented as of this encounter (statuses as of 01/27/2019) Active Problems Problem Noted Date Coronary artery disease involving jackson heart 11/20/2017 Essential hypertension 11/20/2017 Tobacco abuse 11/20/2017 documented as of this encounter (statuses as of 01/27/2019) Social History Tobacco Use Types Packs/Day Years Used Date Current Every Day Smoker Cigarettes 0.5 35 Started: 11/21/1979 Smokeless Tobacco: Never Used Comments: cut down to 2 cigs since september 2017 Alcohol Use Drinks/Week oz/Week Comments Yes SOCIAL Sex Assigned at Date Recorded Not on file Job Start Date Occupation Industry Not on file Not on file Not on file Travel History Travel Start Travel End No recent travel history available. documented as of this encounter Last Filed Vital Signs Not on filedocumented in this encounter Plan of Treatment Health Maintenance Due Date Last Done Comments DTaP,Tdap,and Td Vaccines (1 - 1985 Tdap) COLONOSCOPY 2016 Zoster Recombinant Vaccine 2016 (SHINGRIX) (1 of 2) INFLUENZA VACCINE (#1) 2019 PNEUMOCOCCAL 0-64 YEARS COMBINED Aged Out No longer eligible based on SERIES patient's age to complete this topic documented as of this encounter Results Not on filedocumented in this encounter Visit Diagnoses Diagnosis Coronary artery disease involving jackson coronary artery of jackson heart without angina pectoris documented in this encounter Insurance Payer Benefit Plan Subscriber ID Effective Phone Address Type / Group Dates [place] HARRY COCarmela [id number] [address] [place] [address] C I H C nt [address] [id number] HARRY MCDONALD [id number] 2017-Prese [phone] [facility] PRIMARY CARE PRIMARY CARE nt [address] [id number] documented as of this encounter
--- OUTSIDE RECORDS SUMMARY | 2019-02-12 21:48 | XMS REPORT | Summary of Care ---
:1965 Author Organization [facility] Address [address] [place] [address] Care Team Providers Name Role Phone Gregg Lassiter SOCIOLOGY ADJUNCT INSTRUCTOR Primary Care Provider Reason for Visit Reason Comments Refill Request clopidogrel 75 mg tablet Encounter Details Date Type Department Care Team Description 01/23/[address] [facility] Pediatrics & Gregg Lassiter, Refill Request Adult Primary Care- SOCIOLOGY ADJUNCT INSTRUCTOR (clopidogrel 75 mg [place] [id number] [address] tablet) [address] [address] [place], [place] [phone] Allergies No Known Allergiesdocumented as of this encounter (statuses as of 01/27/2019) Medications Medication Sig Dispensed Refills Start Date End Date Status aspirin 81 mg EC Take 81 mg by 0 Active tabletIndications: mouth daily. Coronary artery disease involving [place] coronary artery of [place] heart without angina pectoris, Essential hypertension nitroglycerin 0.[address] 0.4 mg 0 Active sublingual under the tongue tabletIndications: every 5 (five) Coronary artery disease minutes as involving [place] needed for Chest coronary artery of pain. Not to [place] heart without exceed 3 doses angina pectoris, Essential hypertension ibuprofen 600 mg Take 600 mg by 0 Active tabletIndications: mouth every 6 Coronary artery disease (six) hours as involving [place] needed. coronary artery of [place] heart without angina pectoris, Essential hypertension, Cigarette nicotine dependence without complication, Dyslipidemia, History of ST elevation myocardial infarction (STEMI), POPE (dyspnea on exertion), Fatigue, unspecified type isosorbide mononitrate TAKE 1 TABLET BY 30 tablet 2 10/29/2018 Active 30 mg 24 hr MOUTH ONCE DAILY tabletIndications: Coronary artery disease involving [place] coronary artery of [place] heart without angina pectoris lisinopril 10 mg Take 1 tablet by 30 tablet 4 10/29/2018 Active tabletIndications: mouth daily. Essential hypertension atorvastatin 80 mg Take 1 tablet by 30 tablet 5 11/27/2018 Active tabletIndications: Mixed mouth at hyperlipidemia bedtime. documented as of this encounter (statuses as of 01/27/2019) Active Problems Problem Noted Date Coronary artery disease involving [place] heart 11/20/2017 Essential hypertension 11/20/2017 Tobacco abuse [...] Visit Diagnoses Diagnosis Coronary artery disease involving [place] coronary artery of [place] heart without angina pectoris documented in this encounter Insurance Payer Benefit Plan Subscriber ID Effective Phone Address Type / Group Dates [place] [place] HARRY COCarmela [id number] [address] [place] [address] C [address] C nt [address] [id number] HARRY MCDONALD [id number] 2017-Prese [phone] [facility] PRIMARY CARE PRIMARY CARE nt [address] [id number] documented as of this encounter
--- OUTSIDE RECORDS SUMMARY | 2019-02-12 21:48 | XMS REPORT ---
:1965 [facility] Organization [facility] Address [address] [place] [address] Care Team Providers Name Role Phone PRADEEP STEEL Unavailable Unavailable Problems This patient has no known problems. Allergies, Adverse Reactions, Alerts This patient has no known allergies or adverse reactions. Medications This patient has no known medications. Results Test Description Test Time Test Comments Text Results Atomic Results Result Comments BLOOD CULTURE 2017-10-02 12:00:00 Test Item Value Reference Range Comments CULTURE (BEAKER) (test ocnj=8514) No growth in 5 days BLOOD [id number] 12:00:00 Test Item Value Reference Range Comments CULTURE (BEAKER) (test kgbq=5732) No growth in 5 days [id number] 07:30:00 Test Item Value Reference Range Comments MAGNESIUM (BEAKER) (test tqut=753) 1.9 mg/dL 1.6-2.6 BASIC METABOLIC [id number] 07:30:00 Test Item Value Reference Range Comments SODIUM (BEAKER) (test 137 meq/L 136-145 upxd=722) POTASSIUM (BEAKER) (test 4.0 meq/L 3.5-5.1 nwxg=295) CHLORIDE (BEAKER) (test 108 meq/L 98-107 sbnt=138) CO2 (BEAKER) (test 21 meq/L 22-29 nzkl=358) BLOOD UREA NITROGEN 12 mg/dL 7-21 (BEAKER) (test wrjp=666) CREATININE (BEAKER) (test 0.69 mg/dL 0.57-1.25 ubtj=177) GLUCOSE RANDOM (BEAKER) 93 mg/dL 70-105 (test nawj=552) CALCIUM (BEAKER) (test 9.4 mg/dL 8.4-10.2 vqfq=390) EGFR (BEAKER) (test 121 mL/min/1.73 sq m ESTIMATED GFR IS NOT dwem=8202) ACCURATE CREATININE CLEARANCE IN PREDICTING GLOMERULAR FILTRATION RATE. ESTIMATED GFR IS NOT APPLICABLE FOR DIALYSIS PATIENTS. CBC (HEMOGRAM ONLY)2017-09-28 07:02:00 Test Item Value Reference Range Comments WHITE BLOOD CELL COUNT (BEAKER) (test nkxe=249) 11.9 K/ L 3.5-10.5 RED BLOOD CELL COUNT (BEAKER) (test hrux=395) 5.10 M/ L 4.63-6.08 HEMOGLOBIN (BEAKER) (test ywfk=287) 15.1 GM/DL 13.7-17.5 HEMATOCRIT (BEAKER) (test fkhu=185) 47.4 % 40.1-51.0 MEAN CORPUSCULAR VOLUME (BEAKER) (test pgqv=357) 92.9 fL 79.0-92.2 MEAN CORPUSCULAR HEMOGLOBIN (BEAKER) (test 29.6 pg 25.7-32.2 rvff=797) MEAN CORPUSCULAR HEMOGLOBIN CONC (BEAKER) (test 31.9 GM/DL 32.3-36.5 ipqe=412) RED CELL DISTRIBUTION WIDTH (BEAKER) (test 12.6 % 11.6-14.4 kejl=663) PLATELET COUNT (BEAKER) (test mjas=190) 178 K/CU MM 150-450 MEAN PLATELET VOLUME (BEAKER) (test ueny=426) 11.8 fL 9.4-12.4 NUCLEATED RED BLOOD CELLS (BEAKER) (test 0 /100 WBC 0-0 ogwd=214) TROPONIN [id number] 22:02:00 Test Item Value Reference Range Comments TROPONIN I (BEAKER) (test yhmx=173) 63.70 ng/mL 0.00-0.03 Troponin I (TnI) levels [...] neurological disease, and persistent tachyarrhythmia.TSH/FREE T4 IF [id number] 16:05 :00 Test Item Value Reference Range Comments THYROID STIMULATING HORMONE (BEAKER) (test 1.30 uIU/mL 0.35-4.94 ztnw=976) Draw next time labs are dueTROPONIN [id number] 14:46:00 Test Item Value Reference Range Comments TROPONIN I (BEAKER) (test axkj=117) 100.07 ng/mL 0.00-0.03 Troponin I (TnI) levels [...] acidosis, acute neurological disease, and persistent tachyarrhythmia.HEMOGLOBIN [id number] 12:38:00 Test Item Value Reference Range Comments HEMOGLOBIN A1C (BEAKER) (test kymg=693) 5.2 % 4.3-6.1 RAPID DRUG SCREEN, [id number] 10:53:00 Test Item Value Reference Range Comments BARBITURATE URINE (BEAKER) (test cnqh=716) Negative Negative BENZODIAZEPINE SCREEN URINE (BEAKER) (test Positive Negative qadx=799) COCAINE (METAB.) SCREEN (BEAKER) (test vjjv=3312) Negative Negative METHADONE SCREEN (BEAKER) (test iumj=9587) Negative Negative OPIATE SCREEN URINE (BEAKER) (test vbib=943) Positive Negative CANNABINOID SCREEN URINE (BEAKER) (test jbiv=303) Negative Negative AMPH/METHAMPH SCREEN (BEAKER) (test vond=7751) Negative Negative PHENCYCLIDINE SCREEN URINE (BEAKER) (test wgem=001) Negative Negative OXYCODONE SCREEN URINE (BEAKER) (test kckd=8251) Negative Negative DRUG CUTOFF CONC.Cocaine 300 ng/mL Cannabinoid 50 ng/mL Benzodiazepine 200 ng/mLBarbiturate 200 ng/ mLPhencyclidine 25 ng/mLOpiate 300 ng/mLMethadone 300 ng/mLAmphetamine/ 1000 ng/mL MethamphetamineOxycodone 300 ng/mLThis assay provides an unconfirmed qualitative test result for the clinical management of patients in emergency situations. Chain of custody not maintained. Some yrno-vra-ccxzxbq medications, as well as adulterants, may cause inaccurate results. Clinical correlation should be applied. A more comprehensive drug screen or confirmation of a detected drug may be performed upon request.LIPID [id number] 09:21:00 Test Item Value Reference Range Comments TRIGLYCERIDES (BEAKER) (test rqnu=799) 128 mg/dL CHOLESTEROL (BEAKER) (test yfdr=690) 181 mg/dL HDL CHOLESTEROL (BEAKER) (test guhr=101) 32 mg/dL LDL CHOLESTEROL CALCULATED (BEAKER) (test 123 mg/dL xlgx=459) Triglyceride Reference Range: Low Risk <150 Borderline 150- 199 High Risk 200-499 Very High Risk >=500Cholesterol Reference Range: Low Risk <200 Borderline 200-239 High Risk > 240HDL Cholesterol Reference Range: Low Risk >=60 High Risk <40LDL Cholesterol Reference Range: Optimal <100 Near Optimal 100-129 Borderline 130-159 High 160-189 Very High >=190TROPONIN [id number] 07:55:00 Test Item Value Reference Range Comments TROPONIN I (BEAKER) (test lyeg=771) 72.42 ng/mL 0.00-0.03 Troponin I (TnI) levels [...] failure, acidosis, acute neurological disease, and persistent tachyarrhythmia.PT/[id number] 06:39:00 Test Item Value Reference Range Comments PROTIME (BEAKER) (test zrqz=263) 13.2 seconds 11.7-14.7 INR (BEAKER) (test rnif=102) 1.0 <=5.9 PARTIAL THROMBOPLASTIN TIME (BEAKER) (test 29.7 seconds 22.5-36.0 rlys=606) RECOMMENDED COUMADIN/WARFARIN INR THERAPY RANGESSTANDARD DOSE: 2.0 - 3.0 Includes: PROPHYLAXIS forvenous thrombosis, systemic embolization; TREATMENT for venous thrombosis and/or pulmonary embolus.HIGH RISK: Target INR is 2.5-3.5 for patients with mechanical heart valves.URINALYSIS W/ [id number] 06 :31:00 Test Item Value Reference Range Comments COLOR (BEAKER) (test smec=801) Yellow CLARITY (BEAKER) (test yczx=209) Clear SPECIFIC GRAVITY UA (BEAKER) (test > 1.001-1.035 zatg=888) PH UA (BEAKER) (test uxrn=388) 6.5 5.0-8.0 PROTEIN UA (BEAKER) (test srbi=765) 10 mg/dL Negative GLUCOSE UA (BEAKER) (test agwf=909) Negative Negative KETONES UA (BEAKER) (test dtfl=733) 20 mg/dL Negative BILIRUBIN UA (BEAKER) (test Negative Negative qmyz=087) BLOOD UA (BEAKER) (test opds=383) Negative Negative NITRITE UA (BEAKER) (test ivkf=665) Negative Negative LEUKOCYTE ESTERASE UA (BEAKER) Negative Negative (test umjt=708) UROBILINOGEN UA (BEAKER) (test 0.2 mg/dL 0.2-1.0 jytf=062) RBC UA (BEAKER) (test dnsi=656) 1 /HPF WBC UA (BEAKER) (test tqjf=680) 1 /HPF MUCUS (BEAKER) (test rcmi=2461) Rare SOURCE(BEAKER) (test lyrc=4631) Urine, Straight Catheter BASIC METABOLIC [id number] 06:09:00 Test Item Value Reference Range Comments SODIUM (BEAKER) (test 136 meq/L 136-145 ojeh=111) POTASSIUM (BEAKER) (test 4.2 meq/L 3.5-5.1 gpvv=892) CHLORIDE (BEAKER) (test 105 meq/L 98-107 rdhe=687) CO2 (BEAKER) (test 23 meq/L 22-29 yssf=061) BLOOD UREA NITROGEN 10 mg/dL 7-21 (BEAKER) (test igfz=501) CREATININE (BEAKER) (test 0.74 mg/dL 0.57-1.25 muih=614) GLUCOSE RANDOM (BEAKER) 120 mg/dL 70-105 (test toqo=065) CALCIUM (BEAKER) (test 8.8 mg/dL 8.4-10.2 muso=485) EGFR (BEAKER) (test 112 mL/min/1.73 sq m ESTIMATED GFR IS NOT mvjb=6025) ACCURATE CREATININE CLEARANCE IN PREDICTING GLOMERULAR FILTRATION RATE. ESTIMATED GFR IS NOT APPLICABLE FOR DIALYSIS PATIENTS. CBC W/PLT COUNT & AUTO [id number] 05:57:00 Test Item Value Reference Range Comments WHITE BLOOD CELL COUNT (BEAKER) (test tmld=409) 15.3 K/ L 3.5-10.5 RED BLOOD CELL COUNT (BEAKER) (test hthk=809) 4.56 M/ L 4.63-6.08 HEMOGLOBIN (BEAKER) (test qirf=187) 13.8 GM/DL 13.7-17.5 HEMATOCRIT (BEAKER) (test yfwx=479) 42.8 % 40.1-51.0 MEAN CORPUSCULAR VOLUME (BEAKER) (test ebsx=681) 93.9 fL 79.0-92.2 MEAN CORPUSCULAR HEMOGLOBIN (BEAKER) (test 30.3 pg 25.7-32.2 xkcr=453) MEAN CORPUSCULAR HEMOGLOBIN CONC (BEAKER) (test 32.2 GM/DL 32.3-36.5 rwlf=151) RED CELL DISTRIBUTION WIDTH (BEAKER) (test 12.8 % 11.6-14.4 prjk=342) PLATELET COUNT (BEAKER) (test rjct=399) 181 K/CU MM 150-450 MEAN PLATELET VOLUME (BEAKER) (test eddf=988) 11.5 fL 9.4-12.4 NUCLEATED RED BLOOD CELLS (BEAKER) (test 0 /100 WBC 0-0 wlxw=630) NEUTROPHILS RELATIVE PERCENT (BEAKER) (test 75 % jgsy=286) LYMPHOCYTES RELATIVE PERCENT (BEAKER) (test 12 % atxn=170) MONOCYTES RELATIVE PERCENT (BEAKER) (test 11 % pjrv=401) EOSINOPHILS RELATIVE PERCENT (BEAKER) (test 1 % gcul=217) BASOPHILS RELATIVE PERCENT (BEAKER) (test 0 % icju=816) NEUTROPHILS ABSOLUTE COUNT (BEAKER) (test 11.48 K/ L 1.78-5.38 rzfj=206) LYMPHOCYTES ABSOLUTE COUNT (BEAKER) (test 1.88 K/ L 1.32-3.57 qdcl=108) MONOCYTES ABSOLUTE COUNT (BEAKER) (test 1.73 K/ L 0.30-0.82 fayp=117) EOSINOPHILS ABSOLUTE COUNT (BEAKER) (test 0.12 K/ L 0.04-0.54 dieh=263) BASOPHILS ABSOLUTE COUNT (BEAKER) (test 0.04 K/ L 0.01-0.08 yqck=907) IMMATURE GRANULOCYTES-RELATIVE PERCENT ([facility]) 1 % 0-1 (test txdt=1633) [id number] 01:38:00 Test Item Value Reference Range Comments ACTIVATED CLOTTING TIME 131 sec TESTED AT [facility] [address] [facility] [facility] (test cdij=282) [place] [address] [id number] 01:38:00 Test Item Value Reference Range Comments ACTIVATED CLOTTING TIME 147 sec TESTED AT [address] ([facility]) (test cpkx=798) [place] [address] RAD, CHEST, 1 VIEW, NON [id number] 23:46:00Reason for exam:->STEMIShould this be performed at the bedside?->YesFINAL REPORT History: MA. Comparison: None. Findings: A single view of [...] MDReport Verified Date/Time: 09/26/2017 23:46:29 Reading Location: [address] Reading Room TROPONIN [id number] 22:47:00 Test Item Value Reference Range Comments TROPONIN I ([facility]) (test duro=386) 56.52 ng/mL 0.00-0.03 Troponin I (TnI) levels [...] failure, acidosis, acute neurological disease, and persistent tachyarrhythmia.[id number] 22:39:00 Test Item Value Reference Range Comments PARTIAL THROMBOPLASTIN TIME (ANYA) (test > seconds 22.5-36.0 icia=520) B-TYPE NATRIURETIC FACTOR (BNP)2017-09-26 22:27:00 Test Item Value Reference Range Comments B-TYPE NATRIURETIC PEPTIDE (BEAKER) (test zutu=427) 71 pg/mL 0-100 [id number] 22:20:00 Test Item Value Reference Range Comments MAGNESIUM (BEAKER) (test 1.9 mg/dL 1.6-2.6 Specimen slightly hemolyzed qlpe=555) [id number] 22:20:00 Test Item Value Reference Range Comments PHOSPHORUS (BEAKER) (test 3.6 mg/dL 2.3-4.7 Specimen slightly hemolyzed sboe=299) BASIC METABOLIC [id number] 22:20:00 Test Item Value Reference Range Comments SODIUM (BEAKER) (test 136 meq/L 136-145 ohrc=396) POTASSIUM (BEAKER) (test 4.0 meq/L 3.5-5.1 Specimen slightly ezpx=813) hemolyzed CHLORIDE (BEAKER) (test 107 meq/L 98-107 yody=360) CO2 (BEAKER) (test 19 meq/L 22-29 vpds=723) BLOOD UREA NITROGEN 12 mg/dL 7-21 (BEAKER) (test wuvd=481) CREATININE (BEAKER) (test 0.68 mg/dL 0.57-1.25 Specimen slightly luuq=658) hemolyzed GLUCOSE RANDOM (BEAKER) 122 mg/dL 70-105 (test klsm=346) CALCIUM (BEAKER) (test 8.6 mg/dL 8.4-10.2 waau=115) EGFR (BEAKER) (test 123 mL/min/1.73 sq m ESTIMATED GFR IS NOT xkdy=9353) ACCURATE CREATININE CLEARANCE IN PREDICTING GLOMERULAR FILTRATION RATE. ESTIMATED GFR IS NOT APPLICABLE FOR DIALYSIS PATIENTS. HEPATIC FUNCTION [id number] 22:20:00 Test Item Value Reference Range Comments TOTAL PROTEIN (BEAKER) (test 6.6 gm/dL 6.0-8.3 Specimen slightly hemolyzed pkxv=785) ALBUMIN (BEAKER) (test 3.9 g/dL 3.5-5.0 Specimen slightly hemolyzed ewnw=2070) BILIRUBIN TOTAL (BEAKER) (test 0.5 mg/dL 0.2-1.2 Specimen slightly hemolyzed ktwz=395) BILIRUBIN DIRECT (BEAKER) (test 0.2 mg/dL 0.1-0.5 Specimen slightly hemolyzed msnx=582) ALKALINE PHOSPHATASE (BEAKER) 65 U/L 40-150 (test jlro=789) AST (SGOT) (BEAKER) (test 214 U/L 5-34 Specimen slightly hemolyzed wkdy=672) ALT (SGPT) (BEAKER) (test 39 U/L 6-55 Specimen slightly hemolyzed omim=397) PROTHROMBIN [id number] 22:19:00 Test Item Value Reference Range Comments PROTIME (BEAKER) (test tryd=848) 15.5 seconds 11.7-14.7 INR (BEAKER) (test tivu=876) 1.2 <=5.9 RECOMMENDED COUMADIN/WARFARIN INR THERAPY RANGESSTANDARD DOSE: 2.0 - 3.0 Includes: PROPHYLAXIS forvenous thrombosis, systemic embolization; TREATMENT for venous thrombosis and/or pulmonary embolus.HIGH RISK: Target INR is 2.5-3.5 for patients with mechanical heart valves.CBC W/PLT COUNT & AUTO [id number] 22:03:00 Test Item Value Reference Range Comments WHITE BLOOD CELL COUNT (BEAKER) (test jvba=816) 15.7 K/ L 3.5-10.5 RED BLOOD CELL COUNT (BEAKER) (test ycuj=239) 4.35 M/ L 4.63-6.08 HEMOGLOBIN (BEAKER) (test pdim=067) 13.4 GM/DL 13.7-17.5 HEMATOCRIT (BEAKER) (test hxyj=668) 40.1 % 40.1-51.0 MEAN CORPUSCULAR VOLUME (BEAKER) (test xsxi=380) 92.2 fL 79.0-92.2 MEAN CORPUSCULAR HEMOGLOBIN (BEAKER) (test 30.8 pg 25.7-32.2 rcfo=733) MEAN CORPUSCULAR HEMOGLOBIN CONC (BEAKER) (test 33.4 GM/DL 32.3-36.5 jtop=363) RED CELL DISTRIBUTION WIDTH (BEAKER) (test 12.6 % 11.6-14.4 vslf=225) PLATELET COUNT (BEAKER) (test xxga=681) 177 K/CU MM 150-450 MEAN PLATELET VOLUME (BEAKER) (test tenc=406) 11.4 fL 9.4-12.4 NUCLEATED RED BLOOD CELLS (BEAKER) (test 0 /100 WBC 0-0 aphy=764) NEUTROPHILS RELATIVE PERCENT (BEAKER) (test 80 % qwsm=560) LYMPHOCYTES RELATIVE PERCENT (BEAKER) (test 11 % oysr=685) MONOCYTES RELATIVE PERCENT (BEAKER) (test 7 % vrml=285) EOSINOPHILS RELATIVE PERCENT (BEAKER) (test 1 % vjql=346) BASOPHILS RELATIVE PERCENT (BEAKER) (test 0 % rswf=171) NEUTROPHILS ABSOLUTE COUNT (BEAKER) (test 12.50 K/ L 1.78-5.38 nmeo=491) LYMPHOCYTES ABSOLUTE COUNT (BEAKER) (test 1.78 K/ L 1.32-3.57 ghdh=232) MONOCYTES ABSOLUTE COUNT (BEAKER) (test 1.08 K/ L 0.30-0.82 wwph=607) EOSINOPHILS ABSOLUTE COUNT (BEAKER) (test 0.14 K/ L 0.04-0.54 ienm=367) BASOPHILS ABSOLUTE COUNT (BEAKER) (test 0.06 K/ L 0.01-0.08 kowe=367) IMMATURE GRANULOCYTES-RELATIVE PERCENT (BEAKER) 1 % 0-1 (test yjlv=5282) [id number] 21:55:00 Test Item Value Reference Range Comments ACTIVATED CLOTTING TIME 208 sec TESTED AT [facility] [address] (BEAKER) (test sxqk=324) [place] [address] [id number] 19:50:00 Test Item Value Reference Range Comments ACTIVATED CLOTTING TIME 301 sec TESTED AT [facility] [address] (BEAKER) (test nskq=247) [place] [address]
[2019-02-12] MEDS ORDERED: ALBUTEROL 2.5 MG/3 ML NEB SOL ONE (23:10)
[2019-02-12] MEDS ORDERED: IPRATROPIUM BROM 0.5MG/2.5ML ONE (23:10)
--- NOTE | 2019-02-13 00:21 | ER ---
Nurse's Notes [facility] Name: Garcia Matta Age: 53 yrs Sex: Male : 1965 Arrival Date: 02/12/2019 Time: 21:47 Bed 6 Private MD: Diagnosis: Respiratory conditions due to inhalation of chemicals, gases, fumes and vapors Presentation: 02/12 22:18 Presenting complaint: Patient states: "Earlier I was spraying some bug spray and I aj1 think I might have accidentally inhaled some. I was having some hard time breathing and dizziness and I feel a bit better now, but it hurts when I take a deep breath in." Respirations are even and unlabored at this time. Transition of care: patient was not received from another setting of care. Onset of symptoms was February 12, 2019. Risk Assessment: Do you want to hurt yourself or someone else? Patient reports no desire to harm self or others. Initial Sepsis Screen: Does the patient meet any 2 criteria? HR > 90 bpm. No. Patient's initial sepsis screen is negative. Does the patient have a suspected source of infection? No. Patient's initial sepsis screen is negative. Care prior to arrival: None. 22:18 Method Of Arrival: Ambulatory aj1 22:18 Acuity: CATARINA 3 aj1 Triage Assessment: 22:21 General: Appears in no apparent distress. comfortable, Behavior is calm, cooperative, aj1 appropriate for age. Pain: Denies pain. Neuro: Level of Consciousness is awake, alert, obeys commands. Neuro: Oriented to person, place, time, situation. Cardiovascular: Patient's skin is warm and dry. Respiratory: Reports shortness of breath on exertion Airway is patent Respiratory effort is even, unlabored, Respiratory pattern is regular, symmetrical, Onset: The symptoms/episode began/occurred today, the patient has mild shortness of breath. Historical: - Allergies: 22:21 No Known Allergies; aj1 - Home Meds: 22:21 atorvastatin 80 mg Oral tab [Active]; Plavix 75 mg Oral tab [Active]; nitroglycerin 0.4 aj1 mg SL subl [Active]; lisinopril 10 mg oral tab once daily [Active]; carvedilol 6.25 mg Oral tab 2 times per day [Active]; aspirin 81 mg Oral chew 1 tab once daily [Active]; - PMHx: 22:21 Hypertension; Myocardial infarction; Pneumothorax; aj1 - Immunization history:: Flu vaccine is up to date. - Social history:: Smoking status: Patient/guardian denies using tobacco. - Ebola Screening: : Patient denies travel to an Ebola-affected area in the 21 days before illness onset. Screenin:52 Abuse screen: Denies threats or abuse. Nutritional screening: No deficits noted. fc Tuberculosis screening: No symptoms or risk factors identified. Fall Risk None identified. Assessment: 22:53 General: Appears in no apparent distress. uncomfortable, slender, unkempt, Behavior is fc calm, cooperative, appropriate for age. Pain: Complains of pain in chest Quality of pain is described as burning, aching, Is intermittent, Aggravated by deep breathing. Neuro: Level of Consciousness is awake, alert, obeys commands, Oriented to person, place, time, situation, Appropriate for age. Cardiovascular: Reports chest pain, nausea, shortness of breath, Heart tones S1 S2 present Capillary refill < 3 seconds Pulses are all present. Rhythm is regular Chest pain is described as vague, quality is burning, is located in chest wall substernal area episodes are intermittent is aggravated by breathing. Respiratory: Reports shortness of breath cough that is Airway is patent Respiratory effort is even, unlabored, Respiratory pattern is regular, symmetrical, Breath sounds are clear bilaterally. GI: Abdomen is flat, Bowel sounds present X 4 quads. Abd is soft and non tender X 4 quads. Reports nausea. : No deficits noted. EENT: No deficits noted. Derm: Skin is pink, warm \\T\\ dry. Musculoskeletal: Circulation, motion, and sensation intact. Capillary refill < 3 seconds, Range of motion: intact in all extremities. 23:12 Reassessment: No changes from previously documented assessment. Patient and/or family fc updated on plan of care and expected duration. Pain level reassessed. Patient is alert, oriented x 3, equal unlabored respirations, skin warm/dry/pink. Pt going to radiology dept for xray of chest. 23:13 Reassessment: Pasha with [facility] poison control notified of inhalation of Raid Barba fc spray at 1730. Suppurative care. Monitor and Fresh air. 02/13 00:10 Reassessment: No changes from previously documented assessment. Patient and/or family fc updated on plan of care and expected duration. Pain level reassessed. Patient is alert, oriented x 3, equal unlabored respirations, skin warm/dry/pink. Pt states that he feels better. 00:20 Reassessment: Latrice SOLARES in to see pt and discuss d/c with him. fc Vital Signs: 02/12 22:21 BP 126 / 90; Pulse 95; Resp 18; Temp 98.4; Pulse Ox 96% on R/A; Weight 86.18 kg (R); aj1 Height 6 ft. 1 in. (185.42 cm) (R); Pain 0/10; 22:53 BP 125 / 95; Pulse 87; Resp 20; Temp 97.9; Pulse Ox 97% on R/A; Pain 0/10; fc 23:30 BP 128 / 88; Pulse 87; Resp 20; Pulse Ox 96% on R/A; fc 02/13 00:21 BP 130 / 90; Pulse 88; Resp 20; Temp 98.1(O); Pulse Ox 96% on R/A; Pain 3/10; fc 02/12 22:21 Body Mass Index 25.07 (86.18 kg, 185.42 cm) aj1 ED Course: 02/12 21:47 Patient arrived in ED. ds1 22:19 Triage completed. aj1 22:21 Arm band placed on Patient placed in waiting room, Patient notified of wait time. aj1 22:52 Patient has correct armband on for positive identification. Placed in gown. Bed in low fc position. Call light in reach. compliance monitor on. Pulse ox on. NIBP on. 22:52 No provider procedures requiring assistance completed. fc 22:57 Edmar Pollard PA is PHCP. cp 22:57 Everardo Lechuga MD is Attending Physician. cp 23:35 XRAY Chest Pa And Lat (2 Views) In Process Unspecified. EDMS 02/13 00:47 Patient did not have IV access during this emergency room visit. fc Administered Medications: 02/12 23:30 Drug: Albuterol - atroVENT (3:1) (2.5 mg - 0.5 mg) 3 ml Route: Nebulizer; fc 02/13 00:18 Follow up: Response: No adverse reaction; Marked relief of symptoms fc Outcome: 00:17 Discharge ordered by . cp 00:46 Discharged to home ambulatory. 00:46 Condition: good 00:46 Discharge instructions given to patient, Instructed on discharge instructions, follow up and referral plans. medication usage, Demonstrated understanding of instructions, follow-up care, medications, Prescriptions given X 1. 00:48 Patient left the ED. Signatures: Dispatcher [employer] EDRadha Merchant RN RN aj1 Madison Godinez RN RN Rena Rizvi ds1 Edmar Pollard PA PA cp Corrections: (The following items were deleted from the chart) 02/12 23:23 23:13 Reassessment: Pasha with [facility] poison control notified of inhalation of Barba Raid spray at 1730. fc
--- NOTE | 2019-02-13 00:22 | EDPHYS ---
Physician Documentation [facility] Name: Garcia Matta Age: 53 yrs Sex: Male : 1965 Arrival Date: 02/12/2019 Time: 21:47 Bed 6 Private MD: ED Physician Everardo Lechuga HPI: 02/12 23:10 This 53 yrs old Male presents to ER via Ambulatory with complaints of cp Chemical Inhalation, Dizziness. 23:10 The patient or guardian reports difficulty breathing. Onset: The symptoms/episode cp began/occurred just prior to arrival. Associated signs and symptoms: Pertinent positives: dizziness, pain with deep inspiration, Pertinent negatives: fever, sore throat, vomiting. 23:10 Severity of symptoms: in the emergency department the symptoms have improved mildly. cp Patient reports symptoms started after spraying bug spray indoors. Historical: - Allergies: 22:21 No Known Allergies; aj1 - Home Meds: 22:21 atorvastatin 80 mg Oral tab [Active]; Plavix 75 mg Oral tab [Active]; nitroglycerin 0.4 aj1 mg SL subl [Active]; lisinopril 10 mg oral tab once daily [Active]; carvedilol 6.25 mg Oral tab 2 times per day [Active]; aspirin 81 mg Oral chew 1 tab once daily [Active]; - PMHx: 22:21 Hypertension; Myocardial infarction; Pneumothorax; aj1 - Immunization history:: Flu vaccine is up to date. - Social history:: Smoking status: Patient/guardian denies using tobacco. - Ebola Screening: : Patient denies travel to an Ebola-affected area in the 21 days before illness onset. ROS: 23:20 Constitutional: Negative for body aches, chills, fever, poor PO intake. cp 23:20 Eyes: Negative for injury, pain, redness, and discharge. cp 23:20 ENT: Negative for drainage from ear(s), ear pain, sore throat, difficulty swallowing, difficulty handling secretions. 23:20 Cardiovascular: Positive for pain with deep inspiration, Negative for edema, palpitations. 23:20 Respiratory: Positive for shortness of breath, Negative for cough, wheezing. 23:20 Abdomen/GI: Negative for abdominal pain, vomiting, diarrhea, constipation, black/tarry stool, rectal bleeding. 23:20 Back: Negative for pain at rest, pain with movement. 23:20 : Negative for urinary symptoms. 23:20 Skin: Negative for rash. 23:20 Neuro: Positive for dizziness, Negative for altered mental status, headache, syncope, weakness. 23:20 All other systems are negative. Exam: 23:25 Constitutional: The patient appears in no acute distress, alert, awake, cp non-diaphoretic, non-toxic, well developed, well nourished. 23:25 Head/Face: Normocephalic, atraumatic. cp 23:25 Eyes: Periorbital structures: appear normal, Conjunctiva: normal, no exudate, no injection, Lids and lashes: appear normal, bilaterally. 23:25 ENT: External ear(s): are unremarkable, Ear canal(s): are normal, clear, TM's: bulging, is not appreciated, bilaterally, dullness, bilaterally, erythema, is not appreciated, bilaterally, Nose: is normal, Mouth: Lips: moist, Oral mucosa: pink and intact, moist, Posterior pharynx: is normal, airway is patent, no erythema, no exudate. 23:25 Neck: ROM/movement: is normal, is supple, without pain, no range of motions limitations, no nuchal rigidity. 23:25 Chest/axilla: Inspection: normal, Palpation: is normal, no crepitus, no tenderness. 23:25 Cardiovascular: Rate: normal, Rhythm: regular, Edema: is not appreciated, JVD: is not appreciated. 23:25 Respiratory: the patient does not display signs of respiratory distress, Respirations: normal, no use of accessory muscles, no retractions, no splinting, no tachypnea, labored breathing, is not present, Breath sounds: decreased breath sounds, that are mild, throughout, stridor, is not appreciated, wheezing: is not appreciated. 23:25 Abdomen/GI: Inspection: abdomen appears normal, Palpation: abdomen is soft and non-tender, in all quadrants. 23:25 Back: pain, is absent, ROM is normal. 23:25 Skin: no rash present. 23:25 Neuro: Orientation: to person, place \T\ time. Mentation: is normal, Motor: moves all fours. Vital Signs: 22:21 BP 126 / 90; Pulse 95; Resp 18; Temp 98.4; Pulse Ox 96% on R/A; Weight 86.18 kg (R); aj1 Height 6 ft. 1 in. (185.42 cm) (R); Pain 0/10; 22:53 BP 125 / 95; Pulse 87; Resp 20; Temp 97.9; Pulse Ox 97% on R/A; Pain 0/10; fc 23:30 BP 128 / 88; Pulse 87; Resp 20; Pulse Ox 96% on R/A; fc 02/13 00:21 BP 130 / 90; Pulse 88; Resp 20; Temp 98.1(O); Pulse Ox 96% on R/A; Pain 3/10; fc 02/12 22:21 Body Mass Index 25.07 (86.18 kg, 185.42 cm) aj1 MDM: 02/12 22:58 Patient medically screened. cp 23:30 Differential diagnosis: bronchitis, reactive airway, inhalation injury. cp 02/13 00:16 Data reviewed: vital signs, nurses notes, radiologic studies, plain films. cp 00:16 Test interpretation: by ED physician or midlevel provider: chest xray negative for cp infiltrates. Counseling: I had a detailed discussion with the patient and/or guardian regarding: the historical points, exam findings, and any diagnostic results supporting the discharge/admit diagnosis, radiology results, to return to the emergency department if symptoms worsen or persist or if there are any questions or concerns that arise at home. Response to treatment: the patient's symptoms have markedly improved after treatment, and as a result, I will discharge patient. 02/12 23:07 Order name: XRAY Chest Pa And Lat (2 Views) cp Administered Medications: 02/12 23:30 Drug: Albuterol - atroVENT (3:1) (2.5 mg - 0.5 mg) 3 ml Route: Nebulizer; 02/13 00:18 Follow up: Response: No adverse reaction; Marked relief of symptoms Disposition: 02/13/19 00:17 Discharged to Home. Impression: Respiratory conditions due to inhalation of chemicals, gases, fumes and vapors. - Condition is Stable. - Discharge Instructions: Chemical Inhalation Injury, Adult. - Prescriptions for Albuterol Sulfate 90 mcg/actuation - inhale 1-2 puff by INHALATION route every 4-6 hours; 1 Inhaler. - Medication Reconciliation Form, Thank You Letter, Antibiotic Education, Prescription Opioid Use form. - Follow up: Private Physician; When: 2 - 3 days; Reason: Worsening of condition. - Problem is new. - Symptoms have improved. Signatures: Dispatcher [employer] Radha Anaya RN RN aj1 Madison Godinez RN RN Edmar Ireland PA PA cp Corrections: (The following items were deleted from the chart) 00:48 00:17 02/13/2019 00:17 Discharged to Home. Impression: Respiratory conditions due to fc inhalation of chemicals, gases, fumes and vapors. Condition is Stable. Forms are Medication Reconciliation Form, Thank You Letter, Antibiotic Education, Prescription Opioid Use. Follow up: Private Physician; When: 2 - 3 days; Reason: Worsening of condition. Problem is new. Symptoms have improved. cp
[2019-02-13 02:10] VITALS: O2SAT 96
[2019-02-13 02:11] VITALS: BP 130/90; TEMP 98.1
--- NOTE | 2019-02-13 10:20 | RAD REPORT ---
EXAM DESCRIPTION: RAD - Chest Pa And Lat (2 Views) - 02/12/2019 11:34 pm CLINICAL HISTORY: SOB, possible chemical inhalation injury COMPARISON: October 19 TECHNIQUE: PA and lateral views of the chest were obtained. FINDINGS: The lungs are clear of pulmonary edema or other finding to suspect reaction to chemical ex posure. Interstitial pattern is stable. Pleural thickening along the lateral right apex stable from p rior imaging. Heart size is normal and central vasculature is within normal limits. No pleural eff usion or pneumothorax seen. No acute bony finding noted. No aortic abnormality. IMPRESSION: No acute cardiopulmonary process.
== END 2019-02-13 00:48 | disposition home or self-care (01) ==
LOC: ER 21:45
DX: T60.91XA Toxic effect of unspecified pesticide, accidental (unintentional), initial encounter (principal); J68.8 Other respiratory conditions due to chemicals, gases, fumes and vapors; I25.2 Old myocardial infarction; I10 Essential (primary) hypertension
CPT/HCPCS: 71046; 94640; 99284

== ENCOUNTER 2019-04-19 12:49 | Observation (INO) | payer SELFPAY ==
--- OUTSIDE RECORDS SUMMARY | 2019-04-19 12:52 | XMS REPORT ---
:1965 [facility] Address [address] [place] [address] Care Team Providers Name Role Phone PRADEEP STEEL Unavailable Unavailable Problems This patient has no known problems. Allergies, Adverse Reactions, Alerts This patient has no known allergies or adverse reactions. Medications This patient has no known medications. Results Test Description Test Time Test Comments Text Results Atomic Results Result Comments BLOOD CULTURE 2017-10-02 12:00:00 Test Item Value Reference Range Comments CULTURE (BEAKER) (test kcpd=7431) No growth in 5 days BLOOD [id number] 12:00:00 Test Item Value Reference Range Comments CULTURE (BEAKER) (test dsix=8099) No growth in 5 days [id number] 07:30:00 Test Item Value Reference Range Comments MAGNESIUM (BEAKER) (test docc=993) 1.9 mg/dL 1.6-2.6 BASIC METABOLIC [id number] 07:30:00 Test Item Value Reference Range Comments SODIUM (BEAKER) (test 137 meq/L 136-145 moih=170) POTASSIUM (BEAKER) (test 4.0 meq/L 3.5-5.1 qaxi=764) CHLORIDE (BEAKER) (test 108 meq/L 98-107 ooor=165) CO2 (BEAKER) (test 21 meq/L 22-29 xqqh=418) BLOOD UREA NITROGEN 12 mg/dL 7-21 (BEAKER) (test jjib=871) CREATININE (BEAKER) (test 0.69 mg/dL 0.57-1.25 mwsm=096) GLUCOSE RANDOM (BEAKER) 93 mg/dL 70-105 (test rscq=092) CALCIUM (BEAKER) (test 9.4 mg/dL 8.4-10.2 qrhh=024) EGFR (BEAKER) (test 121 mL/min/1.73 sq m ESTIMATED GFR IS NOT teiw=8332) ACCURATE CREATININE CLEARANCE IN PREDICTING GLOMERULAR FILTRATION RATE. ESTIMATED GFR IS NOT APPLICABLE FOR DIALYSIS PATIENTS. CBC (HEMOGRAM ONLY)2017-09-28 07:02:00 Test Item Value Reference Range Comments WHITE BLOOD CELL COUNT (BEAKER) (test wafi=841) 11.9 K/ L 3.5-10.5 RED BLOOD CELL COUNT (BEAKER) (test yxmt=389) 5.10 M/ L 4.63-6.08 HEMOGLOBIN (BEAKER) (test suof=465) 15.1 GM/DL 13.7-17.5 HEMATOCRIT (BEAKER) (test bihd=411) 47.4 % 40.1-51.0 MEAN CORPUSCULAR VOLUME (BEAKER) (test ajyu=964) 92.9 fL 79.0-92.2 MEAN CORPUSCULAR HEMOGLOBIN (BEAKER) (test 29.6 pg 25.7-32.2 myci=758) MEAN CORPUSCULAR HEMOGLOBIN CONC (BEAKER) (test 31.9 GM/DL 32.3-36.5 hjqj=746) RED CELL DISTRIBUTION WIDTH (BEAKER) (test 12.6 % 11.6-14.4 gsxt=713) PLATELET COUNT (BEAKER) (test mbdn=318) 178 K/CU MM 150-450 MEAN PLATELET VOLUME (BEAKER) (test lshj=209) 11.8 fL 9.4-12.4 NUCLEATED RED BLOOD CELLS (BEAKER) (test 0 /100 WBC 0-0 vnut=218) TROPONIN [id number] 22:02:00 Test Item Value Reference Range Comments TROPONIN I (BEAKER) (test xuce=396) 63.70 ng/mL 0.00-0.03 Troponin I (TnI) levels [...] neurological disease, and persistent tachyarrhythmia.TSH/FREE T4 IF [id number] 16:05 :00 Test Item Value Reference Range Comments THYROID STIMULATING HORMONE (BEAKER) (test 1.30 uIU/mL 0.35-4.94 jshb=060) Draw next time labs are dueTROPONIN [id number] 14:46:00 Test Item Value Reference Range Comments TROPONIN I (BEAKER) (test yqac=940) 100.07 ng/mL 0.00-0.03 Troponin I (TnI) levels [...] acidosis, acute neurological disease, and persistent tachyarrhythmia.HEMOGLOBIN [id number] 12:38:00 Test Item Value Reference Range Comments HEMOGLOBIN A1C (BEAKER) (test angf=027) 5.2 % 4.3-6.1 RAPID DRUG SCREEN, [id number] 10:53:00 Test Item Value Reference Range Comments BARBITURATE URINE (BEAKER) (test uqhx=350) Negative Negative BENZODIAZEPINE SCREEN URINE (BEAKER) (test Positive Negative uzim=724) COCAINE (METAB.) SCREEN (BEAKER) (test opvy=1192) Negative Negative METHADONE SCREEN (BEAKER) (test kgjo=8769) Negative Negative OPIATE SCREEN URINE (BEAKER) (test crel=488) Positive Negative CANNABINOID SCREEN URINE (BEAKER) (test lamd=305) Negative Negative AMPH/METHAMPH SCREEN (BEAKER) (test trgw=6215) Negative Negative PHENCYCLIDINE SCREEN URINE (BEAKER) (test bssh=419) Negative Negative OXYCODONE SCREEN URINE (BEAKER) (test scow=4161) Negative Negative DRUG CUTOFF CONC.Cocaine 300 ng/mL Cannabinoid 50 ng/mL Benzodiazepine 200 ng/mLBarbiturate 200 ng/ mLPhencyclidine 25 ng/mLOpiate 300 ng/mLMethadone 300 ng/mLAmphetamine/ 1000 ng/mL MethamphetamineOxycodone 300 ng/mLThis assay provides an unconfirmed qualitative test result for the clinical management of patients in emergency situations. Chain of custody not maintained. Some pkrc-ejd-bfrtdyi medications, as well as adulterants, may cause inaccurate results. Clinical correlation should be applied. A more comprehensive drug screen or confirmation of a detected drug may be performed upon request.LIPID [id number] 09:21:00 Test Item Value Reference Range Comments TRIGLYCERIDES (BEAKER) (test xxfe=012) 128 mg/dL CHOLESTEROL (BEAKER) (test ciia=047) 181 mg/dL HDL CHOLESTEROL (BEAKER) (test soof=780) 32 mg/dL LDL CHOLESTEROL CALCULATED (BEAKER) (test 123 mg/dL bmib=185) Triglyceride Reference Range: Low Risk <150 Borderline 150- 199 High Risk 200-499 Very High Risk >=500Cholesterol Reference Range: Low Risk <200 Borderline 200-239 High Risk > 240HDL Cholesterol Reference Range: Low Risk >=60 High Risk <40LDL Cholesterol Reference Range: Optimal <100 Near Optimal 100-129 Borderline 130-159 High 160-189 Very High >=190TROPONIN [id number] 07:55:00 Test Item Value Reference Range Comments TROPONIN I (BEAKER) (test qoat=484) 72.42 ng/mL 0.00-0.03 Troponin I (TnI) levels [...] failure, acidosis, acute neurological disease, and persistent tachyarrhythmia.[id number] 06:39:00 Test Item Value Reference Range Comments PROTIME (BEAKER) (test bbtw=816) 13.2 seconds 11.7-14.7 INR (BEAKER) (test reqv=701) 1.0 <=5.9 PARTIAL THROMBOPLASTIN TIME (BEAKER) (test 29.7 seconds 22.5-36.0 fjzc=517) RECOMMENDED COUMADIN/WARFARIN INR THERAPY RANGESSTANDARD DOSE: 2.0 - 3.0 Includes: PROPHYLAXIS forvenous thrombosis, systemic embolization; TREATMENT for venous thrombosis and/or pulmonary embolus.HIGH RISK: Target INR is 2.5-3.5 for patients with mechanical heart valves.URINALYSIS W/ [id number] 06 :31:00 Test Item Value Reference Range Comments COLOR (BEAKER) (test ugpw=362) Yellow CLARITY (BEAKER) (test apmy=045) Clear SPECIFIC GRAVITY UA (BEAKER) (test > 1.001-1.035 krtm=131) PH UA (BEAKER) (test wqfp=564) 6.5 5.0-8.0 PROTEIN UA (BEAKER) (test crnz=021) 10 mg/dL Negative GLUCOSE UA (BEAKER) (test bmof=867) Negative Negative KETONES UA (BEAKER) (test swlz=531) 20 mg/dL Negative BILIRUBIN UA (BEAKER) (test Negative Negative cdxu=720) BLOOD UA (BEAKER) (test guwy=607) Negative Negative NITRITE UA (BEAKER) (test qeqi=334) Negative Negative LEUKOCYTE ESTERASE UA (BEAKER) Negative Negative (test kogo=041) UROBILINOGEN UA (BEAKER) (test 0.2 mg/dL 0.2-1.0 ylrp=885) RBC UA (BEAKER) (test ttqy=998) 1 /HPF WBC UA (BEAKER) (test nowu=567) 1 /HPF MUCUS (BEAKER) (test ydxo=5388) Rare SOURCE(BEAKER) (test onky=5527) Urine, Straight Catheter BASIC METABOLIC [id number] 06:09:00 Test Item Value Reference Range Comments SODIUM (BEAKER) (test 136 meq/L 136-145 scsn=278) POTASSIUM (BEAKER) (test 4.2 meq/L 3.5-5.1 pqhy=502) CHLORIDE (BEAKER) (test 105 meq/L 98-107 nqbf=405) CO2 (BEAKER) (test 23 meq/L 22-29 yqiw=124) BLOOD UREA NITROGEN 10 mg/dL 7-21 (BEAKER) (test brus=039) CREATININE (BEAKER) (test 0.74 mg/dL 0.57-1.25 bcxw=049) GLUCOSE RANDOM (BEAKER) 120 mg/dL 70-105 (test jtgg=074) CALCIUM (BEAKER) (test 8.8 mg/dL 8.4-10.2 rbzo=276) EGFR (BEAKER) (test 112 mL/min/1.73 sq m ESTIMATED GFR IS NOT ikbe=8337) ACCURATE CREATININE CLEARANCE IN PREDICTING GLOMERULAR FILTRATION RATE. ESTIMATED GFR IS NOT APPLICABLE FOR DIALYSIS PATIENTS. CBC W/PLT COUNT & AUTO [id number] 05:57:00 Test Item Value Reference Range Comments WHITE BLOOD CELL COUNT (BEAKER) (test ktck=686) 15.3 K/ L 3.5-10.5 RED BLOOD CELL COUNT (BEAKER) (test rwfy=144) 4.56 M/ L 4.63-6.08 HEMOGLOBIN (BEAKER) (test tjde=935) 13.8 GM/DL 13.7-17.5 HEMATOCRIT (BEAKER) (test mkwr=407) 42.8 % 40.1-51.0 MEAN CORPUSCULAR VOLUME (BEAKER) (test evju=520) 93.9 fL 79.0-92.2 MEAN CORPUSCULAR HEMOGLOBIN (BEAKER) (test 30.3 pg 25.7-32.2 juaf=259) MEAN CORPUSCULAR HEMOGLOBIN CONC (BEAKER) (test 32.2 GM/DL 32.3-36.5 nwvm=388) RED CELL DISTRIBUTION WIDTH (BEAKER) (test 12.8 % 11.6-14.4 mjof=782) PLATELET COUNT (BEAKER) (test eupu=582) 181 K/CU MM 150-450 MEAN PLATELET VOLUME (BEAKER) (test wznl=948) 11.5 fL 9.4-12.4 NUCLEATED RED BLOOD CELLS (BEAKER) (test 0 /100 WBC 0-0 fsxr=085) NEUTROPHILS RELATIVE PERCENT (BEAKER) (test 75 % suef=088) LYMPHOCYTES RELATIVE PERCENT (BEAKER) (test 12 % zoie=417) MONOCYTES RELATIVE PERCENT (BEAKER) (test 11 % vmcl=901) EOSINOPHILS RELATIVE PERCENT (BEAKER) (test 1 % yqsn=654) BASOPHILS RELATIVE PERCENT (BEAKER) (test 0 % cwym=625) NEUTROPHILS ABSOLUTE COUNT (BEAKER) (test 11.48 K/ L 1.78-5.38 rghi=174) LYMPHOCYTES ABSOLUTE COUNT (BEAKER) (test 1.88 K/ L 1.32-3.57 szqh=717) MONOCYTES ABSOLUTE COUNT (BEAKER) (test 1.73 K/ L 0.30-0.82 kvbj=033) EOSINOPHILS ABSOLUTE COUNT (BEAKER) (test 0.12 K/ L 0.04-0.54 pdaw=764) BASOPHILS ABSOLUTE COUNT (BEAKER) (test 0.04 K/ L 0.01-0.08 kudn=584) IMMATURE GRANULOCYTES-RELATIVE PERCENT ([facility]) 1 % 0-1 (test qzql=8725) [id number] 01:38:00 Test Item Value Reference Range Comments ACTIVATED CLOTTING TIME [address] [facility] [address] [facility] ([place]) (test kvqs=231) [place] [address] [id number] 01:38:00 Test Item Value Reference Range Comments ACTIVATED CLOTTING TIME 147 sec TESTED AT [address] ([facility]) (test npai=551) [place] [address] RAD, CHEST, 1 VIEW, NON [id number] 23:46:00Reason for exam:->STEMIShould this be performed at the bedside?->YesFINAL REPORT History: LA. Comparison: None. Findings: A single view of [...] MDReport Verified Date/Time: 09/26/2017 23:46:29 Reading Location: [address] Reading Room TROPONIN [id number] 22:47:00 Test Item Value Reference Range Comments TROPONIN I ([facility]) (test jtop=958) 56.52 ng/mL 0.00-0.03 Troponin I (TnI) levels [...] failure, acidosis, acute neurological disease, and persistent tachyarrhythmia.[id number] 22:39:00 Test Item Value Reference Range Comments PARTIAL THROMBOPLASTIN TIME (ANYA) (test > seconds 22.5-36.0 pgpc=954) B-TYPE NATRIURETIC FACTOR (BNP)2017-09-26 22:27:00 Test Item Value Reference Range Comments B-TYPE NATRIURETIC PEPTIDE (BEAKER) (test eyim=610) 71 pg/mL 0-100 [id number] 22:20:00 Test Item Value Reference Range Comments MAGNESIUM (BEAKER) (test 1.9 mg/dL 1.6-2.6 Specimen slightly hemolyzed ahrm=436) [id number] 22:20:00 Test Item Value Reference Range Comments PHOSPHORUS (BEAKER) (test 3.6 mg/dL 2.3-4.7 Specimen slightly hemolyzed yudd=866) BASIC METABOLIC [id number] 22:20:00 Test Item Value Reference Range Comments SODIUM (BEAKER) (test 136 meq/L 136-145 wzvl=340) POTASSIUM (BEAKER) (test 4.0 meq/L 3.5-5.1 Specimen slightly dtjg=484) hemolyzed CHLORIDE (BEAKER) (test 107 meq/L 98-107 wmao=327) CO2 (BEAKER) (test 19 meq/L 22-29 vins=835) BLOOD UREA NITROGEN 12 mg/dL 7-21 (BEAKER) (test fibt=329) CREATININE (BEAKER) (test 0.68 mg/dL 0.57-1.25 Specimen slightly drlh=979) hemolyzed GLUCOSE RANDOM (BEAKER) 122 mg/dL 70-105 (test zioo=861) CALCIUM (BEAKER) (test 8.6 mg/dL 8.4-10.2 gbez=584) EGFR (BEAKER) (test 123 mL/min/1.73 sq m ESTIMATED GFR IS NOT jbfe=8218) ACCURATE CREATININE CLEARANCE IN PREDICTING GLOMERULAR FILTRATION RATE. ESTIMATED GFR IS NOT APPLICABLE FOR DIALYSIS PATIENTS. HEPATIC FUNCTION [id number] 22:20:00 Test Item Value Reference Range Comments TOTAL PROTEIN (BEAKER) (test 6.6 gm/dL 6.0-8.3 Specimen slightly hemolyzed yhvf=046) ALBUMIN (BEAKER) (test 3.9 g/dL 3.5-5.0 Specimen slightly hemolyzed qmjz=4664) BILIRUBIN TOTAL (BEAKER) (test 0.5 mg/dL 0.2-1.2 Specimen slightly hemolyzed zblh=143) BILIRUBIN DIRECT (BEAKER) (test 0.2 mg/dL 0.1-0.5 Specimen slightly hemolyzed nhmo=559) ALKALINE PHOSPHATASE (BEAKER) 65 U/L 40-150 (test yrrp=695) AST (SGOT) (BEAKER) (test 214 U/L 5-34 Specimen slightly hemolyzed qnsm=015) ALT (SGPT) (BEAKER) (test 39 U/L 6-55 Specimen slightly hemolyzed jiaf=477) PROTHROMBIN [id number] 22:19:00 Test Item Value Reference Range Comments PROTIME (BEAKER) (test zrpy=990) 15.5 seconds 11.7-14.7 INR (BEAKER) (test tqcj=066) 1.2 <=5.9 RECOMMENDED COUMADIN/WARFARIN INR THERAPY RANGESSTANDARD DOSE: 2.0 - 3.0 Includes: PROPHYLAXIS forvenous thrombosis, systemic embolization; TREATMENT for venous thrombosis and/or pulmonary embolus.HIGH RISK: Target INR is 2.5-3.5 for patients with mechanical heart valves.CBC W/PLT COUNT & AUTO [id number] 22:03:00 Test Item Value Reference Range Comments WHITE BLOOD CELL COUNT (BEAKER) (test vfaa=164) 15.7 K/ L 3.5-10.5 RED BLOOD CELL COUNT (BEAKER) (test vzyx=398) 4.35 M/ L 4.63-6.08 HEMOGLOBIN (BEAKER) (test zseu=436) 13.4 GM/DL 13.7-17.5 HEMATOCRIT (BEAKER) (test ruck=299) 40.1 % 40.1-51.0 MEAN CORPUSCULAR VOLUME (BEAKER) (test pura=637) 92.2 fL 79.0-92.2 MEAN CORPUSCULAR HEMOGLOBIN (BEAKER) (test 30.8 pg 25.7-32.2 xeed=882) MEAN CORPUSCULAR HEMOGLOBIN CONC (BEAKER) (test 33.4 GM/DL 32.3-36.5 rkvg=651) RED CELL DISTRIBUTION WIDTH (BEAKER) (test 12.6 % 11.6-14.4 bvar=833) PLATELET COUNT (BEAKER) (test ecpa=438) 177 K/CU MM 150-450 MEAN PLATELET VOLUME (BEAKER) (test dmjy=598) 11.4 fL 9.4-12.4 NUCLEATED RED BLOOD CELLS (BEAKER) (test 0 /100 WBC 0-0 oqoh=872) NEUTROPHILS RELATIVE PERCENT (BEAKER) (test 80 % zmie=993) LYMPHOCYTES RELATIVE PERCENT (BEAKER) (test 11 % tsui=691) MONOCYTES RELATIVE PERCENT (BEAKER) (test 7 % kijy=844) EOSINOPHILS RELATIVE PERCENT (BEAKER) (test 1 % odrt=192) BASOPHILS RELATIVE PERCENT (BEAKER) (test 0 % jpom=770) NEUTROPHILS ABSOLUTE COUNT (BEAKER) (test 12.50 K/ L 1.78-5.38 rhbv=075) LYMPHOCYTES ABSOLUTE COUNT (BEAKER) (test 1.78 K/ L 1.32-3.57 latw=233) MONOCYTES ABSOLUTE COUNT (BEAKER) (test 1.08 K/ L 0.30-0.82 fdne=884) EOSINOPHILS ABSOLUTE COUNT (BEAKER) (test 0.14 K/ L 0.04-0.54 dhmp=344) BASOPHILS ABSOLUTE COUNT (BEAKER) (test 0.06 K/ L 0.01-0.08 yefb=071) IMMATURE GRANULOCYTES-RELATIVE PERCENT (BEAKER) 1 % 0-1 (test imqy=6902) [id number] 21:55:00 Test Item Value Reference Range Comments ACTIVATED CLOTTING TIME [address] [facility] [address] (BEAKER) (test bcvk=968) [place] [address] [id number] 19:50:00 Test Item Value Reference Range Comments ACTIVATED CLOTTING TIME [address] [facility] [address] (BEAKER) (test scmc=468) [place] [address]
[2019-04-19] MEDS ORDERED: METOPROLOL TARTRATE 5 MG/5 ML INJ IV ONE ×2 (13:24→14:19)
[2019-04-19 13:39] LABS: Absolute Lymphocytes (CBC) 1.9 K/uL (0.7-4.9); Basophils % 0.6 % (0-1.3); Hematocrit 41.8 % (39.6-49.0); Lymphocytes % 22.8 % (15.3-44.8); MPV 10.2 fL (7.6-11.3); RBC Red Blood Cell Count 4.58 M/uL (4.33-5.43)
[2019-04-19 13:47] LABS: Protime INR 0.96
[2019-04-19 13:55] LABS: ALT/SGPT 38 U/L (12-78); AST/SGOT 22 U/L (15-37); Albumin 3.9 g/dL (3.4-5.0); Alkaline Phosphatase 84 U/L (45-117); BUN Blood Urea Nitrogen 10 mg/dL (7-18); Bicarbonate 24 mmol/L (21-32); Bilirubin Direct 0.1 mg/dL (0-0.2); Bilirubin Total 0.4 mg/dL (0.2-1.0); Glucose Level 104 mg/dL (74-106); Magnesium 1.8 mg/dL (1.8-2.4); NT PRO-BNP 125 pg/mL (<125); Potassium 3.7 mmol/L (3.5-5.1); Protein, Total 7.5 g/dL (6.4-8.2); Sodium Level 140 mmol/L (136-145); Troponin (Emerg Dept Use Only) < 0.02 ng/mL (0.0-0.045)
--- NOTE | 2019-04-19 13:59 | RAD REPORT ---
EXAM DESCRIPTION: CT - Head Brain Wo Cont - 04/19/2019 1:43 pm CLINICAL HISTORY: DIZZINESS Headache, drowsiness, hypertension COMPARISON: Head C Spine Mpr Wo Con dated 10/19/2018 TECHNIQUE: All CT scans are performed using dose optimization technique as appropriate and may inclu de automated exposure control or mA/KV adjustment according to patient size. FINDINGS: No intracranial hemorrhage, hydrocephalus or extra-axial fluid collection.No areas of brai n edema or evidence of midline shift. The paranasal sinuses and mastoids are clear. The calvarium is intact. IMPRESSION: No acute intracranial abnormality.
--- NOTE | 2019-04-19 14:00 | RAD REPORT ---
EXAM DESCRIPTION: RAD - Chest Single View - 04/19/2019 1:34 pm CLINICAL HISTORY: CHEST PAIN Chest pain. COMPARISON: Chest Pa And Lat (2 Views) dated 02/12/2019; Chest Single View dated 10/19/2018; Chest Sing le View dated 10/22/2017; Chest Single View dated 09/26/2017 FINDINGS: Portable technique limits examination quality. The lungs are mildly emphysematous but grossly clear. The heart is normal in size. No displaced fract ures. IMPRESSION: No acute intrathoracic process suspected.
[2019-04-19] MEDS ORDERED: ASPIRIN 81 MG CHEWABLE TABLET ONE (14:19)
--- NOTE | 2019-04-19 14:27 | ER ---
Nurse's Notes [facility] Name: Garcia Matta Age: 53 yrs Sex: Male : 1965 Arrival Date: 04/19/2019 Time: 12:52 Bed 26 Private MD: Diagnosis: Chest pain, unspecified;Essential (primary) hypertension Presentation: 04/19 13:04 Presenting complaint: Patient states: i feel weak, dizzy, and been having chest pain mg2 for past days but worsening today. my blood pressure was also high at home. Transition of care: patient was not received from another setting of care. Onset of symptoms was April 2019. Risk Assessment: Do you want to hurt yourself or someone else? Patient reports no desire to harm self or others. Initial Sepsis Screen: Does the patient meet any 2 criteria? No. Patient's initial sepsis screen is negative. Does the patient have a suspected source of infection? No. Patient's initial sepsis screen is negative. Care prior to arrival: None. 13:04 Method Of Arrival: Ambulatory mg2 13:04 Acuity: CATARINA 3 mg2 Historical: - Allergies: 13:11 No Known Allergies; mg2 - Home Meds: 13:11 aspirin 81 mg Oral chew 1 tab once daily [Active]; atorvastatin 80 mg Oral tab mg2 [Active]; carvedilol 6.25 mg Oral tab 2 times per day [Active]; lisinopril 10 mg Oral tab once daily [Active]; nitroglycerin 0.4 mg SL subl [Active]; Plavix 75 mg Oral tab [Active]; - PMHx: 13:11 Hypertension; Myocardial infarction; Pneumothorax; mg2 - PSHx: 13:11 Heart stents; mg2 - Immunization history:: Flu vaccine is not up to date. - Social history:: Smoking status: Patient/guardian denies using alcohol, street drugs, IV drugs. - Ebola Screening: : No symptoms or risks identified at this time. Screenin:13 Abuse screen: Denies threats or abuse. Denies injuries from another. Nutritional mg2 screening: No deficits noted. Tuberculosis screening: No symptoms or risk factors identified. Fall Risk IV access (20 points). Assessment: 14:11 General: Appears in no apparent distress. comfortable, Behavior is calm, cooperative. mg2 Pain: Complains of pain in chest Pain does not radiate. Pain currently is 3 out of 10 on a pain scale. Quality of pain is described as aching, Pain began gradually. Neuro: Level of Consciousness is awake, alert, obeys commands, Oriented to person, place, time, situation. Cardiovascular: Capillary refill < 3 seconds Patient's skin is warm and dry. Respiratory: Airway is patent Respiratory effort is even, unlabored, Respiratory pattern is regular, symmetrical. GI: No signs and/or symptoms were reported involving the gastrointestinal system. : No signs and/or symptoms were reported regarding the genitourinary system. EENT: No signs and/or symptoms were reported regarding the EENT system. Derm: Skin is intact, is healthy with good turgor, Skin is pink, warm \T\ dry. normal. Musculoskeletal: Circulation, motion, and sensation intact. Capillary refill < 3 seconds. Vital Signs: 13:05 BP 160 / 105; Pulse 97; Resp 18; Temp 98.4; Pulse Ox 97% on R/A; Weight 83.91 kg; mg2 Height 6 ft. 1 in. (185.42 cm); 13:52 BP 154 / 102; Pulse 79; Resp 18; Pulse Ox 98% ; mg2 14:14 BP 146 / 102; Pulse 76; Resp 16; Pulse Ox 97% ; rv 16:05 BP 142 / 92; Pulse 79; Resp 18; Temp 97.8; Pulse Ox 100% on R/A; mg2 13:05 Body Mass Index 24.41 (83.91 kg, 185.42 cm) mg2 ED Course: 12:52 Patient arrived in ED. rg4 12:58 Dannielle Rdz FNP-C is [facility]. kb 12:58 Will Pickens MD is Attending Physician. kb 13:03 Juan Feng, CINDY is Primary Nurse. mg2 13:05 Triage completed. mg2 13:12 Arm band placed on. mg2 13:12 EKG done, by restorative care technician. reviewed by Dannielle NINA. at1 13:15 Initial lab(s) drawn, by ny, sent to lab. jp3 13:23 Placed in gown. Bed in low position. Call light in reach. Warm blanket given. Verbal jp3 reassurance given. Pulse ox on. NIBP on. nurse monitoring on. 13:23 Inserted saline lock: 20 gauge in right forearm, using aseptic technique. Blood jp3 collected. Patient maintains SpO2 saturation greater than 95% on room air. 13:[address] via wheelchair. md1 13:35 XRAY Chest (1 view) In Process Unspecified. EDMS 13:43 CT Head Brain wo Cont In Process Unspecified. EDMS 14:13 No provider procedures requiring assistance completed. mg2 14:27 Shine Sapp DO is Hospitalizing Provider. kb 14:35 Urine collected: clean catch specimen, clear, isabelle colored. jp3 16:05 Patient admitted, IV remains in place. mg2 Administered Medications: 13:52 Drug: Lopressor 5 mg Route: IVP; Site: right forearm; mg2 16:06 Follow up: Response: No adverse reaction mg2 14:39 Drug: Aspirin Chewable Tablet 324 mg Route: PO; mg2 16:06 Follow up: Response: No adverse reaction mg2 14:39 Drug: Lopressor 5 mg Route: IVP; Site: right forearm; mg2 16:05 Follow up: Response: No adverse reaction; Blood pressure is lowered mg2 Outcome: 14:26 Discharge ordered by MD. kb 14:27 Decision to Hospitalize by Provider. kb 16:48 Admitted to Med/surg accompanied by tech, via wheelchair, room 212, with chart, Report mg2 called to CINDY Jaramillo 16:48 Condition: stable 16:48 Instructed on the need for admit, Demonstrated understanding of instructions. 16:49 Patient left the ED. mg2 Signatures: Dispatcher [employer] EDMS Dannielle Rdz, RENTAL CAR DELIVERER-C RENTAL CAR DELIVERER-Ckb Laura Newsome, training instructor EKG Corey1 Tish Russ rg4 Juan Feng RN RN mg2 Hitesh Hoover RN RN rv Pisarski, Jacob jp3 Joann Bran md1
--- NOTE | 2019-04-19 14:28 | EDPHYS ---
Physician Documentation [facility] Name: Garcia Matta Age: 53 yrs Sex: Male : 1965 Arrival Date: 04/19/2019 Time: 12:52 Bed 26 Private MD: ED Physician Will Pickens HPI: 04/19 13:10 This 53 yrs old Male presents to ER via Ambulatory with complaints of High kb Blood Pressure, Chest Pain, Dizziness. 13:18 The patient or guardian reports chest pain that is located primarily in the anterior kb chest wall, left. Onset: 4 day(s) ago. The pain does not radiate. Associated signs and symptoms: Pertinent positives: dizziness, lightheadedness. The chest pain is described as aching. Duration: The patient or guardian reports multiple episodes, that are intermittent, with no pattern. Modifying factors: The symptoms are alleviated by nothing. the symptoms are aggravated by nothing. Severity of pain: At its worst the pain was moderate in the emergency department the pain is unchanged. The patient has experienced a previous episode. The patient has not recently seen a physician. Pt reports he has had intermittent chest pain, dizziness and lightheadedness over the past 4 days. States he had these same symptoms when he had a KS in the past so he came to get checked out. Reports he has been out of his normal meds including BP meds and anticoagulants. Has been taking baby aspirin daily.. Historical: - Allergies: 13:11 No Known Allergies; mg2 - Home Meds: 13:11 aspirin 81 mg Oral chew 1 tab once daily [Active]; atorvastatin 80 mg Oral tab mg2 [Active]; carvedilol 6.25 mg Oral tab 2 times per day [Active]; lisinopril 10 mg Oral tab once daily [Active]; nitroglycerin 0.4 mg SL subl [Active]; Plavix 75 mg Oral tab [Active]; - PMHx: 13:11 Hypertension; Myocardial infarction; Pneumothorax; mg2 - PSHx: 13:11 Heart stents; mg2 - Immunization history:: Flu vaccine is not up to date. - Social history:: Smoking status: Patient/guardian denies using alcohol, street drugs, IV drugs. - Ebola Screening: : No symptoms or risks identified at this time. ROS: 13:20 Constitutional: Negative for fever, chills, and weight loss, ENT: Negative for injury, kb pain, and discharge, Neck: Negative for injury, pain, and swelling, Respiratory: Negative for shortness of breath, cough, wheezing, and pleuritic chest pain, Abdomen/GI: Negative for abdominal pain, nausea, vomiting, diarrhea, and constipation, Back: Negative for injury and pain, MS/Extremity: Negative for injury and deformity, Skin: Negative for injury, rash, and discoloration. 13:20 Cardiovascular: Positive for chest pain, Negative for edema, orthopnea, palpitations, paroxysmal nocturnal dyspnea. 13:20 Neuro: Positive for dizziness. Exam: 13:10 ECG was reviewed by the Attending Physician. kb 13:20 Constitutional: This is a well developed, well nourished patient who is awake, alert, kb and in no acute distress. Head/Face: Normocephalic, atraumatic. ENT: Nares patent. No nasal discharge, no septal abnormalities noted. Tympanic membranes are normal and external auditory canals are clear. Oropharynx with no redness, swelling, or masses, exudates, or evidence of obstruction, uvula midline. Mucous membranes moist. Neck: Trachea midline, no thyromegaly or masses palpated, and no cervical lymphadenopathy. Supple, full range of motion without nuchal rigidity, or vertebral point tenderness. No Meningismus. Chest/axilla: Normal chest wall appearance and motion. Nontender with no deformity. No lesions are appreciated. Cardiovascular: Regular rate and rhythm with a normal S1 and S2. No gallops, murmurs, or rubs. Normal PMI, no JVD. No pulse deficits. Respiratory: Lungs have equal breath sounds bilaterally, clear to auscultation and percussion. No rales, rhonchi or wheezes noted. No increased work of breathing, no retractions or nasal flaring. Abdomen/GI: Soft, non-tender, with normal bowel sounds. No distension or tympany. No guarding or rebound. No evidence of tenderness throughout. Skin: Warm, dry with normal turgor. Normal color with no rashes, no lesions, and no evidence of cellulitis. MS/ Extremity: Pulses equal, no cyanosis. Neurovascular intact. Full, normal range of motion. Neuro: Awake and alert, GCS 15, oriented to person, place, time, and situation. Cranial nerves II-XII grossly intact. Motor strength 5/5 in all extremities. Sensory grossly intact. Cerebellar exam normal. Normal gait. Vital Signs: 13:05 BP 160 / 105; Pulse 97; Resp 18; Temp 98.4; Pulse Ox 97% on R/A; Weight 83.91 kg; mg2 Height 6 ft. 1 in. (185.42 cm); 13:52 BP 154 / 102; Pulse 79; Resp 18; Pulse Ox 98% ; mg2 14:14 BP 146 / 102; Pulse 76; Resp 16; Pulse Ox 97% ; rv 16:05 BP 142 / 92; Pulse 79; Resp 18; Temp 97.8; Pulse Ox 100% on R/A; mg2 13:05 Body Mass Index 24.41 (83.91 kg, 185.42 cm) mg2 MDM: 12:58 Patient medically screened. kb 14:14 The patient was given aspirin in the Emergency Department. Data reviewed: vital signs, kb nurses notes. Data interpreted: Pulse oximetry: on room air is 98 %. Interpretation: normal. ED course: HEART score 4. 14:25 Counseling: I had a detailed discussion with the patient and/or guardian regarding: the kb historical points, exam findings, and any diagnostic results supporting the discharge/admit diagnosis, lab results, radiology results, the need for further work-up and treatment in the hospital. ED course: Based on pt's history and HEART score, will admit for chest pain, rule out KS.. 04/19 13:04 Order name: Basic Metabolic Panel; Complete Time: 13:57 kb 04/19 13:04 Order name: CBC with Diff; Complete Time: 13:48 kb 04/19 13:04 Order name: LFT's; Complete Time: 13:57 kb 04/19 13:04 Order name: Magnesium; Complete Time: 13:57 kb 04/19 13:04 Order name: NT PRO-BNP; Complete Time: 13:57 kb 04/19 13:04 Order name: PT-INR; Complete Time: 13:57 kb 04/19 13:04 Order name: Troponin (emerg Dept Use Only); Complete Time: 13:57 kb 04/19 13:04 Order name: XRAY Chest (1 view); Complete Time: 14:11 kb 04/19 13:04 Order name: EKG; Complete Time: 13:06 kb 04/19 13:18 Order name: CT Head Brain wo Cont; Complete Time: 14:11 kb 04/19 14:38 Order name: Urine Dipstick--Ancillary (enter results); Complete Time: 16:16 bd 04/19 13:04 Order name: Cardiac monitoring; Complete Time: 13:24 kb 04/19 13:04 Order name: EKG - Nurse/Tech; Complete Time: 13:24 kb 04/19 13:04 Order name: IV Saline Lock; Complete Time: 13:24 kb 04/19 13:04 Order name: Labs collected and sent; Complete Time: 13:24 kb 04/19 13:04 Order name: O2 Per Protocol; Complete Time: 13:25 kb 04/19 13:04 Order name: O2 Sat Monitoring; Complete Time: 13:25 kb EC:10 Rate is 96 beats/min. Rhythm is regular. QRS [place] is Normal. CT interval is normal at kb 134 msec. QRS interval is normal at 96 msec. QT interval is normal at 358 msec. Administered Medications: 13:52 Drug: Lopressor 5 mg Route: IVP; Site: right forearm; mg2 16:06 Follow up: Response: No adverse reaction mg2 14:39 Drug: Aspirin Chewable Tablet 324 mg Route: PO; mg2 16:06 Follow up: Response: No adverse reaction mg2 14:39 Drug: Lopressor 5 mg Route: IVP; Site: right forearm; mg2 16:05 Follow up: Response: No adverse reaction; Blood pressure is lowered mg2 Disposition: 17:32 Co-signature as Attending Physician, Will Pickens MD. rn Disposition: 04/19/19 14:27 Hospitalization ordered by Shine Sapp for Observation. Preliminary diagnosis are Chest pain, unspecified, Essential (primary) hypertension. - Bed requested for Telemetry/MedSurg (observation). - Status is Observation. mg2 - Condition is Stable. - Problem is new. - Symptoms are unchanged. UTI on Admission? No Signatures: Dispatcher [employer] Dannielle Goldstein FNP-C FNP-Ckb Woody, Diana, RN CINDY Will Pickens MD MD rn Gardose, Michele, RN RN mg2 Corrections: (The following items were deleted from the chart) 14:26 14:26 04/19/2019 14:26 Discharged to Home. Impression: Essential (primary) kb hypertension; Chest pain, unspecified. Condition is Stable. Forms are Medication Reconciliation Form, Thank You Letter, Antibiotic Education, Prescription Opioid Use. Follow up: Emergency Department; When: As needed; Reason: Worsening of condition. Follow up: Private Physician; When: 2 - 3 days; Reason: Recheck today's complaints, Continuance of care, Re-evaluation by your physician. kb 16:02 14:27 Hospitalization Ordered by Shine Sapp DO for Observation. Preliminary dw diagnosis is Chest pain, unspecified; Essential (primary) hypertension. Bed requested for Telemetry/MedSurg (observation). Status is Observation. Condition is Stable. Problem is new. Symptoms are unchanged. UTI on Admission? No. kb 16:49 16:02 04/19/2019 14:27 Hospitalization Ordered by Shine Sapp DO for Observation. mg2 Preliminary diagnosis is Chest pain, unspecified; Essential (primary) hypertension. Bed requested for Telemetry/MedSurg (observation). Status is Observation. Condition is Stable. Problem is new. Symptoms are unchanged. UTI on Admission? No. dw
--- NOTE | 2019-04-19 15:54 | EKG ---
Test Date: 2019-04-19 Test Time: 13:04:55 Electric Motor Controls Assembler: SONIA MEASUREMENT RESULTS: Intervals: Rate: 96 TN: 134 QRSD: 96 QT: 358 QTc: 452 [place]: P: 60 TN: 134 QRS: 55 T: 82 INTERPRETIVE STATEMENTS: Normal sinus rhythm Normal ECG Compared to ECG 10/23/2017 08:40:33 Myocardial infarct finding no longer present Electronically Signed On 04-19-19 15:53:23 PEDIATRIC DENTAL HYGIENIST by Ad Deng
[2019-04-19 16:10] LABS: Urine Blood NEGATIVE (NEG); Urine Glucose NEGATIVE (NEG); Urine Protein NEGATIVE (NEG); Urine Specific Gravity 1.025 (1.005-1.030)
[2019-04-19] MEDS ORDERED: ALBUTEROL 2.5 MG/3 ML NEB SOL NEB PRN (16:56)
[2019-04-19] MEDS ORDERED: ACETAMINOPHEN 500 MG TAB PO PRN (16:56)
[2019-04-19] MEDS ORDERED: ONDANSETRON 4 MG/2 ML VIAL IV PRN (16:56)
[2019-04-19] MEDS ORDERED: IPRATROPIUM BROM 0.5MG/2.5ML NEB PRN (16:56)
[2019-04-19] MEDS ORDERED: NITROGLYCERIN 0.4 MG/TAB SL PRN (16:56)
[2019-04-19 17:07] VITALS: BMI 25.2
--- NOTE | 2019-04-19 17:21 | P.HP ---
Certification for Inpatient Patient admitted to: Observation With expected LOS: <2 Midnights Patient will require the following post-hospital care: None Practitioner: I am a practitioner with admitting privileges, knowledge of patient current condition, hospital course, and medical plan of care. Services: Services provided to patient in accordance with Admission requirements found in Title 42 Section 412.3 of the Code of Federal Regulations Patient History Date of Service: 04/19/19 Primary Care Provider: none; Cardiology-Dr. Galdamez([facility] (formerly [facility]3]) Reason for admission: Chest pain History of Present Illness: 53-year-old male presented to the emergency room with chest pain. Patient with history of CAD with prior stents, hypertension, hyperlipidemia, and COPD. Patient presented with chest pain. Chest pain noted to the substernal region. It was associated with some lightheadedness and shortness of breath. Patient admits running out of his medications that he was taking in the past. He reports having a heart catheterization in 2017 at which 3 stents were placed. Patient reports being seen by cardiology at [facility]. He had a stress test done about 6 months ago. He thinks tests were normal at that time. Patient previously on aspirin, Plavix and Lipitor. He does not recall any other medication. In the ER patient was evaluated. Initial blood pressures were elevated. CT head unremarkable. Chest x-ray showed COPD changes. White count 8.2, hemoglobin 14. Sodium 140, potassium 3.7. GFR within normal range. Initial troponin unremarkable. EKG shows no significant EKG changes. Patient was admitted for further evaluation and treatment. When I saw in the ER patient was stable. Patient without chest pain. Patient stable at this time. Patient admits being without medication for at least 6 weeks. Patient previously on aspirin and Plavix. Allergies No Known Allergies Allergy (Verified 04/19/19 16:57) Home medications list reviewed: Yes Home Medications: Aspirin Chewable [Aspirin Chewable*] 81 mg PO DAILY 10/22/17 Atorvastatin Calcium [Lipitor] 80 mg PO BEDTIME 10/22/17 Clopidogrel Bisulfate [Plavix*] 75 mg PO DAILY 10/22/17 Nitroglycerin [Nitrostat*] 0.4 mg SL PRN PRN 10/22/17 Carvedilol [Coreg*] 6.25 mg PO BID #30 tab 10/23/17 Isosorbide Mononitrate [Isosorbide Mononitrate ER] 30 mg PO DAILY #30 tab.er.24h 10/23/17 Lisinopril 10 mg PO DAILY #30 tablet 10/23/17 - Past Medical/Surgical History Diabetic: No -: CAD with prior stents -: HTN -: Former tobacco use -: COPD -: Poor compliance with medication and follow up -: Stent x 3 Psychosocial/ Personal History: Patient lives at home. - Family History Family History: Reviewed- Non-Contributory - Family History Mother -: Heart disease - Social History Smoking Status: Former smoker Alcohol use: No CD- Drugs: No Caffeine use: Yes Place of Residence: Home Review of Systems General: As per HPI Eyes: Unremarkable Respiratory: Shortness of Breath Cardiovascular: Chest Pain, Light Headedness, As per HPI Gastrointestinal: Unremarkable Genitourinary: Unremarkable Musculoskeletal: Unremarkable Integumentary: Unremarkable Neurological: Unremarkable Lymphatics: Unremarkable Physical Examination - Vital Signs Temperature: 97.8 F Blood Pressure: 142/92 Pulse: 79 Respirations: 18 - Physical Exam General: Alert, In no apparent distress, Oriented x3, Cooperative HEENT: Atraumatic, Normocephalic, Mucous membr. moist/pink Neck: Supple, No Thyromegaly Respiratory: Clear to auscultation bilaterally, Normal air movement Cardiovascular: Normal pulses, Regular rate/rhythm Gastrointestinal: Normal bowel sounds, Soft and benign, Non-distended, No tenderness, No masses, No rebound, No guarding Musculoskeletal: No erythema, No tenderness, No warmth Integumentary: No tenderness/swelling, No erythema, No warmth, No cyanosis Neurological: Normal speech, Normal strength at 5/5 x4 extr, Normal tone, Normal affect - Studies Laboratory Data (last 24 hrs) 04/19/19 13:15: PT 11.3, INR 0.96 04/19/19 13:15: WBC 8.2, Hgb 14.5, Hct 41.8, Plt Count 174 04/19/19 13:15: Sodium 140, Potassium 3.7, BUN 10, Creatinine 0.77, Glucose 104 , Magnesium 1.8, Total Bilirubin 0.4, AST 22, ALT 38, Alkaline Phosphatase 84 Assessment and Plan - Plan Impression: Chest pain with history of CAD with prior stent Hypertension Hyperlipidemia COPD Former tobacco use Plan: Chest pain with history of CAD with prior stent: Patient will be admitted for further evaluation and treatment. Patient non compliant with his recent medication. Will continue to monitor telemetry and cardiac enzymes. Will obtain echocardiogram. Will consult cardiology for further evaluation. Will keep the patient NPO after midnight as the patient may require cardiac evaluation. Will obtain records from [facility] as the patient had cardiac stress test about 6 months ago. Will start aspirin, Plavix, statin medication, beta-justine and HEIDY-inhibitor. Will monitor and adjust medication. Await further recommendations from cardiology. I will turn the service over to Dr. Malik tomorrow. I will go over the plan of care with her. Anticipate discharge as early as tomorrow pending clinical and cardiology Hypertension: Will start metoprolol and lisinopril for better blood pressure control. Will monitor and adjust appropriately. Hyperlipidemia: Will start statin medication. Will check fasting lipid panel in the morning. COPD: Will provide COPD medication. Will maintain sats above 93%. Patient will likely require medication at discharge. Former tobacco use: Continue to educate on tobacco cessation. Patient appears committed. Discharge Plan: Home Plan to discharge in: 24 Hours - Advance Directives Does patient have a Living Will: No Does patient have a Durable POA for Healthcare: No - Code Status/Comfort Care Code Status Assessed: Yes (Patient is full code) Time Spent Managing Pts Care (In Minutes): 55
[2019-04-19] MEDS: METOPROLOL TAR 25 MG TAB PO SCH (18:09)
[2019-04-19 19:14] LABS: Urine Appearance CLEAR; Urine Bilirubin NEGATIVE (NEG); Urine Blood NEGATIVE (NEG); Urine Color YELLOW; Urine Glucose NEGATIVE (NEG); Urine Protein NEGATIVE (NEG); Urine Urobilinogen 0.2 mg/dL (0.2-1.0); Urine pH 5.5 (5.0-7.0)
[2019-04-19 19:24] LABS: Barbiturates NEGATIVE (NEGATIVE); Benzodiazepines NEGATIVE (NEGATIVE); Cocaine NEGATIVE (NEGATIVE); METHAMPHETAM NEGATIVE (NEGATIVE); Methadone NEGATIVE (NEGATIVE); Opiates NEGATIVE (NEGATIVE); Phencyclidine NEGATIVE (NEGATIVE); THC Cannibis NEGATIVE (NEGATIVE)
[2019-04-19 19:26] LABS: Urine Amorphous Sediment 1+ /HPF (NONE SEEN); Urine Bacteria <20 /HPF (NONE SEEN); Urine Culture Reflex Order NOT NEEDED; Urine Mucus 1+ /HPF (NONE SEEN); Urine RBC <5 /HPF (NONE SEEN)
[2019-04-19 20:06] LABS: CKMB Creatine Kinase MB 1.7 ng/mL (0.3-3.6); Creatine Phosphokinase 117 U/L (39-308); Troponin I < 0.02 ng/mL (0.0-0.045)
[2019-04-19] MEDS: ARFORMOTEROL TARTRATE 15 MCG/2 ML VIAL.NEB NEB SCH (20:15)
[2019-04-19] MEDS ORDERED: lisinopriL 10 MG TAB PO SCH (21:00)
[2019-04-19] MEDS ORDERED: ATORVASTATIN 40 MG TAB PO SCH (21:00)
[2019-04-20 04:12] LABS: BUN Blood Urea Nitrogen 13 mg/dL (7-18); Bicarbonate 26 mmol/L (21-32); Glucose Level 94 mg/dL (74-106); HDL Cholesterol 28 mg/dL (40-60); LDL Cholesterol, Calculated 51 (<130); Potassium 4.2 mmol/L (3.5-5.1); Sodium Level 140 mmol/L (136-145)
[2019-04-20 04:19] LABS: CKMB Creatine Kinase MB 1.6 ng/mL (0.3-3.6); Creatine Phosphokinase 99 U/L (39-308); Troponin I < 0.02 ng/mL (0.0-0.045)
[2019-04-20] MEDS: METOPROLOL TAR 25 MG TAB PO SCH (05:58)
[2019-04-20] MEDS: ARFORMOTEROL TARTRATE 15 MCG/2 ML VIAL.NEB NEB SCH (08:20)
[2019-04-20] MEDS ORDERED: REGADENOSON 0.4 MG/5 ML SYR IV ONE (08:30)
[2019-04-20] MEDS ORDERED: ASPIRIN EC 81 MG TAB PO SCH (09:00)
[2019-04-20] MEDS ORDERED: ENOXAPARIN 40 MG/0.4 ML SQ SCH (09:00)
[2019-04-20] MEDS ORDERED: CLOPIDOGREL 75 MG TABLET PO SCH (09:00)
--- NOTE | 2019-04-20 14:05 | ECHO ---
HEIGHT: 6 ft 1 in WEIGHT: 191 lb 3.2 oz DATE OF STUDY: 04/20/[address]: Shine Sapp DO 2-DIMENSIONAL: YES M.MODE: YES DOPPLER: YES COLOR FLOW: YES TDS: NO PORTABLE: NO DEFINITY: NO BUBBLE STUDY: NO DIAGNOSIS: CHEST PAIN, HISTORY OF CORONARY ARTERY DISEASE CARDIAC HISTORY: CATHERIZATION: YES SURGERY: NO PROSTHETIC VALVE: NO PACEMAKER: NO MEASUREMENTS (cm) DIASTOLIC (NORMALS) SYSTOLIC (NORMALS) IVSd 1.0 (0.6-1.2) LA Diam (1.9-4.0) LVEF 76% LVIDd 5.1 (3.5-5.7) LVIDs 2.8 (2.0-3.5) %FS 45% LVPWd 1.2 (0.6-1.2) Ao Diam 3.2 (2.0-3.7) 2 DIMENSIONAL ASSESSMENT: RIGHT ATRIUM: NORMAL LEFT ATRIUM: NORMAL RIGHT VENTRICLE: NORMAL LEFT VENTRICLE: NORMAL TRICUSPID VALVE: NORMAL MITRAL VALVE: MITRAL ANNULAR CALCIFICATION PULMONIC VALVE: NORMAL AORTIC VALVE: SCLEROSIS PERICARDIAL EFFUSION: NONE AORTIC ROOT: NORMAL LEFT VENTRICULAR WALL MOTION: NORMAL DOPPLER/COLOR FLOW: NORMAL COMMENTS: AORTIC SCLEROSIS WITH NO STENOSIS. MITRAL ANNULAR CALCIFICATION. NORMAL LEFT VENTRICULAR SIZE AND FUNCTION. TECHNOLOGIST: Hillary OTERO
--- NOTE | 2019-04-20 14:23 | RAD REPORT ---
EXAM DESCRIPTION: NM - Rest Stress Cardiac Imaging - 04/20/2019 2:15 pm CLINICAL HISTORY: Chest pain COMPARISON: None. TECHNIQUE: The patient was administered 10.6 mCi of Tc 99m Sestamibi prior to resting SPECT imaging of the heart. The patient was then administered 31.1 mCi of Tc 99m Sestamibi following exercise or ph armacologic stress. Multiplanar SPECT images were reviewed. FINDINGS: The end diastolic volume is 121 ml, the end systolic volume is 67 ml, and the ejection fra ction is 44 %. Large anteroseptal defect lower wall and apex present unchanged between rest and stress imaging. Dim inished activity is seen along the inferior wall primarily at the base. This is also unchanged betwee n rest and stress imaging. No stress-induced ischemic changes identifiable. IMPRESSION: No stress-induced ischemic change identifiable. Anteroseptal wall and apex fixed defect most likely scarring. Inferior wall fixed defect near the bas e also suspected to be scarring. End-diastolic volume enlarged at 1:00 21 milliliters with a 44% ejection fraction.
[2019-04-20 14:51] VITALS: O2SAT 95
--- NOTE | 2019-04-20 15:29 | P.SSS ---
Patient History Date of Service: 04/20/19 Primary Care Provider: none; Cardiology-Dr. Galdamez([facility]) Reason for admission: Chest pain History of Present Illness: see hpi Allergies No Known Allergies Allergy (Verified 04/19/19 16:57) Home Medications: Aspirin Chewable [Aspirin Chewable*] 81 mg PO DAILY 10/22/17 Atorvastatin Calcium [Lipitor] 80 mg PO BEDTIME 10/22/17 Clopidogrel Bisulfate [Plavix*] 75 mg PO DAILY 10/22/17 Nitroglycerin [Nitrostat*] 0.4 mg SL PRN PRN 10/22/17 Carvedilol [Coreg*] 6.25 mg PO BID #30 tab 10/23/17 Isosorbide Mononitrate [Isosorbide Mononitrate ER] 30 mg PO DAILY #30 tab.er.24h 10/23/17 Lisinopril 10 mg PO DAILY #30 tablet 10/23/17 - Past Medical/Surgical History Diabetic: No -: CAD with prior stents -: HTN -: Former tobacco use -: COPD -: Poor compliance with medication and follow up -: Stent x 3 Psychosocial/ Personal History: Patient lives at home. - Family History Family History: Reviewed- Non-Contributory - Family History Mother -: Heart disease - Social History Smoking Status: Former smoker Alcohol use: No CD- Drugs: No Caffeine use: Yes Place of Residence: Home Review of Systems 10-point ROS is otherwise unremarkable Physical Examination - Vital Signs Temperature: 98.4 F Blood Pressure: 127/60 Pulse: 80 Respirations: 16 Pulse Ox (%): 95 - Physical Exam General: Alert, In no apparent distress HEENT: Atraumatic, PERRLA, Mucous membr. moist/pink, EOMI, Sclerae nonicteric Neck: Supple, 2+ carotid pulse no bruit, No LAD, Without JVD or thyroid abnormality Respiratory: Clear to auscultation bilaterally, Normal air movement Cardiovascular: Regular rate/rhythm, Normal S1 S2 Gastrointestinal: Normal bowel sounds, No tenderness Musculoskeletal: No tenderness Integumentary: No rashes Neurological: Normal gait, Normal speech, Normal strength at 5/5 x4 extr, Normal tone, Normal affect Lymphatics: No axilla or inguinal lymphadenopathy - Diagnosis (Problem(s)) (1) Chest pain Onset Date: 10/23/17 Current Visit: No Status: Acute Qualifiers: Chest pain type: precordial pain Qualified Code(s): R07.2 - Precordial pain (2) CAD (coronary artery disease) Onset Date: 10/23/17 Current Visit: No Status: Acute Qualifiers: Coronary Disease-Associated Artery/Lesion type: ute artery [place] vs. transplanted heart: ute heart Associated angina: with unspecified angina Qualified Code(s): I25.119 - Atherosclerotic heart disease of ute coronary artery with unspecified angina pectoris (3) HTN (hypertension) Onset Date: 10/23/17 Current Visit: No Status: Acute Qualifiers: Hypertension type: essential hypertension Qualified Code(s): I10 - Essential (primary) hypertension (4) Tobacco abuse Onset Date: 10/23/17 Current Visit: No Status: Acute Treatment Summary: Overall during the hospital stay patient remained stable Patient was initially admitted to the hospital for chest pain ACS rule out. Cardiology was consulted for. Troponin x2 was negative. EKG was with nonspecific changes. Patient had an echocardiogram done here in the hospital along with cardiac stress test.Pt denied any chest pain. Thus was DC home under stable condition and asked to f.u with Cardiology - Disposition Disposition: ROUTINE DISCHARGE Condition: GOOD Diet: Regular Activity: Ad shlomo
--- NOTE | 2019-04-20 16:07 | TREADPHA ---
DX: CHEST PAIN/ CORONARY ARTERY DISEASE Date of Study: 04/20/19 Ht: 6 1 Wt: 191 lb 3.2 oz Consulting Physician: MICKEY MEDICATIONS: TYLENOL, BROVANA, PLAVIX, LIPITOR, LOVENOX, LOPRESSOR, NITROSTAT, PRINIVIL. HISTORY: 53 YEAR OLD MALE WITH COMPLAINTS OF CHEST PAIN. HISTORY OF CORONARY ARTERY DISEASE, HYPERTENSION, COPD, HYPERLIPIDEMIA, NON SMOKER, NON DRINKER. PHYSICIAL EXAMINATION: RESTING B.P.: 128/93 RESTING H.R.: 78 RESTING EKG: NORMAL. PROTOCOL: LEXISCAN EXERCISE TIME: 3:30 B.P. AT PEAK STRESS: 125/92 IMPRESSION: LEXISCAN INJECTED, FOLLOWED BY CARDIOLITE PER PROTOCOL, SEE NUCLEAR MEDICINE REPORT. NO SUPRA VENTRICULAR TACHYCARDIA, VENTRICULAR TACHYCARDIA, PREMATURE ATRIAL COMPLEXES, OCCASIONAL PREMATURE VENTRICULAR COMPLEXES. PATIENT REPORTED NO CHEST PAIN.
[2019-04-20 16:38] VITALS: BP 135/67; TEMP 98
--- NOTE | 2019-04-20 21:23 | CON ---
Date of Consultation: 04/20/2019 Reason For Consultation: Chest pain. History Of Present Illness: Mr. Matta is a 53-year-old white male. He has a history of coronary ar fletcher disease. He is status post 3 stents in September 2017. Has history of hypertension and pneumothora x in the past. He came in with dizziness, hypertension, atypical chest pain. No nausea, vomiting, d iaphoresis, PND, orthopnea, pedal edema, palpitations, or syncope. He is already ruled out for an MS . Past Medical History: As stated above. Allergies: NONE. Review of Systems: Negative. Social History: Negative. Family History: Negative. Medications: At home are none. He is supposed to take aspirin, Plavix, Lipitor, Coreg, and lisinopr il, but cannot afford it. Physical Examination: Vital Signs: Stable, afebrile. HEENT: Negative. Neck: Supple with no bruit. Chest: Clear. Cardiac: Normal. Abdomen: Benign. Extremities: Revealed no clubbing, cyanosis, or edema. Diagnostic Data: Normal. Impression And Plan: Atypical chest pain in a patient with history of coronary artery disease, hyper tension, status post stent, history of pneumothorax, noncompliance [employer]. Nevertheless , we will need to study him before he goes home, I recommended an echo and a stress test and we will see what that shows prior to giving discharge. FREIDA/MARI Voice ID: [id number] Report ID: [id number]
== END 2019-04-20 17:44 | disposition home or self-care (01) ==
LOC: ER 12:49 → ERHOLD 15:16 → 2ND 16:30
PROVIDERS: ADMIT Family Medicine; ATTEND Family Medicine
DX: R07.9 Chest pain, unspecified (principal); I25.10 Atherosclerotic heart disease of native coronary artery without angina pectoris; I10 Essential (primary) hypertension; E78.5 Hyperlipidemia, unspecified; J44.9 Chronic obstructive pulmonary disease, unspecified; Z79.82 Long term (current) use of aspirin; Z87.891 Personal history of nicotine dependence; Z95.5 Presence of coronary angioplasty implant and graft
CPT/HCPCS: 36415; 70450; 71045; 78452; 80048; 80061; 80076; 80307; 81001; 81003; 82550; 82553; 83735; 83880; 84484; 85025; 85610; 93005; 93017; 93306; 96374; 99285; A9500; G0378; J1650; J2785; J7605

== ENCOUNTER 2019-05-24 17:45 | Inpatient (IN) | payer SELFPAY ==
--- OUTSIDE RECORDS SUMMARY | 2019-05-24 17:48 | XMS REPORT ---
:1965 Author Organization [facility] Address [address] [place] [address] Care Team Providers Name Role Phone PRADEEP STEEL Unavailable Unavailable Problems This patient has no known problems. Allergies, Adverse Reactions, Alerts This patient has no known allergies or adverse reactions. Medications This patient has no known medications. Results Test Description Test Time Test Comments Text Results Atomic Results Result Comments BLOOD CULTURE 2017-10-02 12:00:00 Test Item Value Reference Range Comments CULTURE (BEAKER) (test ljhf=6473) No growth in 5 days BLOOD [id number] 12:00:00 Test Item Value Reference Range Comments CULTURE (BEAKER) (test qypn=3652) No growth in 5 days [id number] 07:30:00 Test Item Value Reference Range Comments MAGNESIUM (BEAKER) (test fsyb=085) 1.9 mg/dL 1.6-2.6 BASIC METABOLIC [id number] 07:30:00 Test Item Value Reference Range Comments SODIUM (BEAKER) (test 137 meq/L 136-145 grto=145) POTASSIUM (BEAKER) (test 4.0 meq/L 3.5-5.1 flkm=439) CHLORIDE (BEAKER) (test 108 meq/L 98-107 xwon=932) CO2 (BEAKER) (test 21 meq/L 22-29 bpsy=342) BLOOD UREA NITROGEN 12 mg/dL 7-21 (BEAKER) (test jueo=668) CREATININE (BEAKER) (test 0.69 mg/dL 0.57-1.25 qtsk=457) GLUCOSE RANDOM (BEAKER) 93 mg/dL 70-105 (test sohh=505) CALCIUM (BEAKER) (test 9.4 mg/dL 8.4-10.2 xzug=746) EGFR (BEAKER) (test 121 mL/min/1.73 sq m ESTIMATED GFR IS NOT knpc=6810) ACCURATE CREATININE CLEARANCE IN PREDICTING GLOMERULAR FILTRATION RATE. ESTIMATED GFR IS NOT APPLICABLE FOR DIALYSIS PATIENTS. CBC (HEMOGRAM ONLY)2017-09-28 07:02:00 Test Item Value Reference Range Comments WHITE BLOOD CELL COUNT (BEAKER) (test qewc=290) 11.9 K/ L 3.5-10.5 RED BLOOD CELL COUNT (BEAKER) (test kcqi=548) 5.10 M/ L 4.63-6.08 HEMOGLOBIN (BEAKER) (test lmpk=855) 15.1 GM/DL 13.7-17.5 HEMATOCRIT (BEAKER) (test nymo=380) 47.4 % 40.1-51.0 MEAN CORPUSCULAR VOLUME (BEAKER) (test zuzd=017) 92.9 fL 79.0-92.2 MEAN CORPUSCULAR HEMOGLOBIN (BEAKER) (test 29.6 pg 25.7-32.2 fxqp=959) MEAN CORPUSCULAR HEMOGLOBIN CONC (BEAKER) (test 31.9 GM/DL 32.3-36.5 cgoa=132) RED CELL DISTRIBUTION WIDTH (BEAKER) (test 12.6 % 11.6-14.4 zmnn=708) PLATELET COUNT (BEAKER) (test tyfg=593) 178 K/CU MM 150-450 MEAN PLATELET VOLUME (BEAKER) (test empt=887) 11.8 fL 9.4-12.4 NUCLEATED RED BLOOD CELLS (BEAKER) (test 0 /100 WBC 0-0 rseo=284) TROPONIN [id number] 22:02:00 Test Item Value Reference Range Comments TROPONIN I (BEAKER) (test fupk=183) 63.70 ng/mL 0.00-0.03 Troponin I (TnI) levels [...] neurological disease, and persistent tachyarrhythmia.TSH/FREE T4 IF [id number] 16:05 :00 Test Item Value Reference Range Comments THYROID STIMULATING HORMONE (BEAKER) (test 1.30 uIU/mL 0.35-4.94 ipbb=608) Draw next time labs are dueTROPONIN [id number] 14:46:00 Test Item Value Reference Range Comments TROPONIN I (BEAKER) (test lngl=836) 100.07 ng/mL 0.00-0.03 Troponin I (TnI) levels [...] acidosis, acute neurological disease, and persistent tachyarrhythmia.HEMOGLOBIN [id number] 12:38:00 Test Item Value Reference Range Comments HEMOGLOBIN A1C (BEAKER) (test jdtt=797) 5.2 % 4.3-6.1 RAPID DRUG SCREEN, [id number] 10:53:00 Test Item Value Reference Range Comments BARBITURATE URINE (BEAKER) (test qtua=857) Negative Negative BENZODIAZEPINE SCREEN URINE (BEAKER) (test Positive Negative xtrl=782) COCAINE (METAB.) SCREEN (BEAKER) (test lhsd=4783) Negative Negative METHADONE SCREEN (BEAKER) (test qnsh=1939) Negative Negative OPIATE SCREEN URINE (BEAKER) (test ikxo=852) Positive Negative CANNABINOID SCREEN URINE (BEAKER) (test ectc=994) Negative Negative AMPH/METHAMPH SCREEN (BEAKER) (test doap=2595) Negative Negative PHENCYCLIDINE SCREEN URINE (BEAKER) (test ztqy=315) Negative Negative OXYCODONE SCREEN URINE (BEAKER) (test lkkt=7080) Negative Negative DRUG CUTOFF CONC.Cocaine 300 ng/mL Cannabinoid 50 ng/mL Benzodiazepine 200 ng/mLBarbiturate 200 ng/ mLPhencyclidine 25 ng/mLOpiate 300 ng/mLMethadone 300 ng/mLAmphetamine/ 1000 ng/mL MethamphetamineOxycodone 300 ng/mLThis assay provides an unconfirmed qualitative test result for the clinical management of patients in emergency situations. Chain of custody not maintained. Some gwna-byv-uapdwak medications, as well as adulterants, may cause inaccurate results. Clinical correlation should be applied. A more comprehensive drug screen or confirmation of a detected drug may be performed upon request.LIPID [id number] 09:21:00 Test Item Value Reference Range Comments TRIGLYCERIDES (BEAKER) (test ayhf=415) 128 mg/dL CHOLESTEROL (BEAKER) (test qehw=651) 181 mg/dL HDL CHOLESTEROL (BEAKER) (test mztm=569) 32 mg/dL LDL CHOLESTEROL CALCULATED (BEAKER) (test 123 mg/dL omll=261) Triglyceride Reference Range: Low Risk <150 Borderline 150- 199 High Risk 200-499 Very High Risk >=500Cholesterol Reference Range: Low Risk <200 Borderline 200-239 High Risk > 240HDL Cholesterol Reference Range: Low Risk >=60 High Risk <40LDL Cholesterol Reference Range: Optimal <100 Near Optimal 100-129 Borderline 130-159 High 160-189 Very High >=190TROPONIN [id number] 07:55:00 Test Item Value Reference Range Comments TROPONIN I (BEAKER) (test iwko=941) 72.42 ng/mL 0.00-0.03 Troponin I (TnI) levels [...] failure, acidosis, acute neurological disease, and persistent tachyarrhythmia.[id number] 06:39:00 Test Item Value Reference Range Comments PROTIME (BEAKER) (test ukqr=958) 13.2 seconds 11.7-14.7 INR (BEAKER) (test euuv=659) 1.0 <=5.9 PARTIAL THROMBOPLASTIN TIME (BEAKER) (test 29.7 seconds 22.5-36.0 peda=736) RECOMMENDED COUMADIN/WARFARIN INR THERAPY RANGESSTANDARD DOSE: 2.0 - 3.0 Includes: PROPHYLAXIS forvenous thrombosis, systemic embolization; TREATMENT for venous thrombosis and/or pulmonary embolus.HIGH RISK: Target INR is 2.5-3.5 for patients with mechanical heart valves.URINALYSIS W/ [id number] 06 :31:00 Test Item Value Reference Range Comments COLOR (BEAKER) (test snef=817) Yellow CLARITY (BEAKER) (test jnmo=862) Clear SPECIFIC GRAVITY UA (BEAKER) (test > 1.001-1.035 axbc=493) PH UA (BEAKER) (test jbxg=048) 6.5 5.0-8.0 PROTEIN UA (BEAKER) (test jvuu=478) 10 mg/dL Negative GLUCOSE UA (BEAKER) (test qhsg=309) Negative Negative KETONES UA (BEAKER) (test iprl=228) 20 mg/dL Negative BILIRUBIN UA (BEAKER) (test Negative Negative ofat=370) BLOOD UA (BEAKER) (test tmwo=508) Negative Negative NITRITE UA (BEAKER) (test ptgm=003) Negative Negative LEUKOCYTE ESTERASE UA (BEAKER) Negative Negative (test bibf=375) UROBILINOGEN UA (BEAKER) (test 0.2 mg/dL 0.2-1.0 orfl=932) RBC UA (BEAKER) (test bbty=583) 1 /HPF WBC UA (BEAKER) (test qbne=440) 1 /HPF MUCUS (BEAKER) (test vnmi=3920) Rare SOURCE(BEAKER) (test xlcu=3734) Urine, Straight Catheter BASIC METABOLIC [id number] 06:09:00 Test Item Value Reference Range Comments SODIUM (BEAKER) (test 136 meq/L 136-145 cglu=374) POTASSIUM (BEAKER) (test 4.2 meq/L 3.5-5.1 pfsb=078) CHLORIDE (BEAKER) (test 105 meq/L 98-107 ossc=405) CO2 (BEAKER) (test 23 meq/L 22-29 bxfs=423) BLOOD UREA NITROGEN 10 mg/dL 7-21 (BEAKER) (test iwrm=383) CREATININE (BEAKER) (test 0.74 mg/dL 0.57-1.25 dnce=457) GLUCOSE RANDOM (BEAKER) 120 mg/dL 70-105 (test osrq=979) CALCIUM (BEAKER) (test 8.8 mg/dL 8.4-10.2 otws=257) EGFR (BEAKER) (test 112 mL/min/1.73 sq m ESTIMATED GFR IS NOT qxus=3721) ACCURATE CREATININE CLEARANCE IN PREDICTING GLOMERULAR FILTRATION RATE. ESTIMATED GFR IS NOT APPLICABLE FOR DIALYSIS PATIENTS. CBC W/PLT COUNT & AUTO [id number] 05:57:00 Test Item Value Reference Range Comments WHITE BLOOD CELL COUNT (BEAKER) (test hska=974) 15.3 K/ L 3.5-10.5 RED BLOOD CELL COUNT (BEAKER) (test vnac=740) 4.56 M/ L 4.63-6.08 HEMOGLOBIN (BEAKER) (test owhz=939) 13.8 GM/DL 13.7-17.5 HEMATOCRIT (BEAKER) (test lmrn=491) 42.8 % 40.1-51.0 MEAN CORPUSCULAR VOLUME (BEAKER) (test ezcg=548) 93.9 fL 79.0-92.2 MEAN CORPUSCULAR HEMOGLOBIN (BEAKER) (test 30.3 pg 25.7-32.2 faif=976) MEAN CORPUSCULAR HEMOGLOBIN CONC (BEAKER) (test 32.2 GM/DL 32.3-36.5 ojhc=150) RED CELL DISTRIBUTION WIDTH (BEAKER) (test 12.8 % 11.6-14.4 ffup=285) PLATELET COUNT (BEAKER) (test licl=486) 181 K/CU MM 150-450 MEAN PLATELET VOLUME (BEAKER) (test plnw=491) 11.5 fL 9.4-12.4 NUCLEATED RED BLOOD CELLS (BEAKER) (test 0 /100 WBC 0-0 zduh=093) NEUTROPHILS RELATIVE PERCENT (BEAKER) (test 75 % bgve=266) LYMPHOCYTES RELATIVE PERCENT (BEAKER) (test 12 % pdwj=345) MONOCYTES RELATIVE PERCENT (BEAKER) (test 11 % xsvr=133) EOSINOPHILS RELATIVE PERCENT (BEAKER) (test 1 % ijii=104) BASOPHILS RELATIVE PERCENT (BEAKER) (test 0 % dgxu=653) NEUTROPHILS ABSOLUTE COUNT (BEAKER) (test 11.48 K/ L 1.78-5.38 ovev=891) LYMPHOCYTES ABSOLUTE COUNT (BEAKER) (test 1.88 K/ L 1.32-3.57 uppx=161) MONOCYTES ABSOLUTE COUNT (BEAKER) (test 1.73 K/ L 0.30-0.82 degz=308) EOSINOPHILS ABSOLUTE COUNT (BEAKER) (test 0.12 K/ L 0.04-0.54 fryc=987) BASOPHILS ABSOLUTE COUNT (BEAKER) (test 0.04 K/ L 0.01-0.08 srwv=147) IMMATURE GRANULOCYTES-RELATIVE PERCENT ([facility]) 1 % 0-1 (test haug=1868) [id number] 01:38:00 Test Item Value Reference Range Comments ACTIVATED CLOTTING TIME [address] [facility] [address] [facility] ([facility]) (test fsxm=930) [place] [address] [id number] 01:38:00 Test Item Value Reference Range Comments ACTIVATED CLOTTING TIME 147 sec TESTED AT [address] ([facility]) (test kvtk=459) [place] [address] RAD, CHEST, 1 VIEW, NON [id number] 23:46:00Reason for exam:->STEMIShould this be performed at [...] MDReport Verified Date/Time: 09/26/2017 23:46:29 Reading Location: [address] Reading Room TROPONIN [id number] 22:47:00 Test Item Value Reference Range Comments TROPONIN I ([facility]) (test dlom=973) 56.52 ng/mL 0.00-0.03 Troponin I (TnI) levels [...] failure, acidosis, acute neurological disease, and persistent tachyarrhythmia.[id number] 22:39:00 Test Item Value Reference Range Comments PARTIAL THROMBOPLASTIN TIME (ANYA) (test > seconds 22.5-36.0 qthw=624) B-TYPE NATRIURETIC FACTOR (BNP)2017-09-26 22:27:00 Test Item Value Reference Range Comments B-TYPE NATRIURETIC PEPTIDE (BEAKER) (test zbvk=803) 71 pg/mL 0-100 [id number] 22:20:00 Test Item Value Reference Range Comments MAGNESIUM (BEAKER) (test 1.9 mg/dL 1.6-2.6 Specimen slightly hemolyzed gsfq=659) [id number] 22:20:00 Test Item Value Reference Range Comments PHOSPHORUS (BEAKER) (test 3.6 mg/dL 2.3-4.7 Specimen slightly hemolyzed uqwr=905) BASIC METABOLIC [id number] 22:20:00 Test Item Value Reference Range Comments SODIUM (BEAKER) (test 136 meq/L 136-145 fprz=839) POTASSIUM (BEAKER) (test 4.0 meq/L 3.5-5.1 Specimen slightly nreo=509) hemolyzed CHLORIDE (BEAKER) (test 107 meq/L 98-107 wktk=868) CO2 (BEAKER) (test 19 meq/L 22-29 dtuo=202) BLOOD UREA NITROGEN 12 mg/dL 7-21 (BEAKER) (test prdl=985) CREATININE (BEAKER) (test 0.68 mg/dL 0.57-1.25 Specimen slightly yebo=935) hemolyzed GLUCOSE RANDOM (BEAKER) 122 mg/dL 70-105 (test dkmh=828) CALCIUM (BEAKER) (test 8.6 mg/dL 8.4-10.2 mohd=133) EGFR (BEAKER) (test 123 mL/min/1.73 sq m ESTIMATED GFR IS NOT nxpg=0057) ACCURATE CREATININE CLEARANCE IN PREDICTING GLOMERULAR FILTRATION RATE. ESTIMATED GFR IS NOT APPLICABLE FOR DIALYSIS PATIENTS. HEPATIC FUNCTION [id number] 22:20:00 Test Item Value Reference Range Comments TOTAL PROTEIN (BEAKER) (test 6.6 gm/dL 6.0-8.3 Specimen slightly hemolyzed dxwr=090) ALBUMIN (BEAKER) (test 3.9 g/dL 3.5-5.0 Specimen slightly hemolyzed nygw=8261) BILIRUBIN TOTAL (BEAKER) (test 0.5 mg/dL 0.2-1.2 Specimen slightly hemolyzed puzv=735) BILIRUBIN DIRECT (BEAKER) (test 0.2 mg/dL 0.1-0.5 Specimen slightly hemolyzed pwee=179) ALKALINE PHOSPHATASE (BEAKER) 65 U/L 40-150 (test bonj=964) AST (SGOT) (BEAKER) (test 214 U/L 5-34 Specimen slightly hemolyzed vsqe=510) ALT (SGPT) (BEAKER) (test 39 U/L 6-55 Specimen slightly hemolyzed ustk=402) PROTHROMBIN [id number] 22:19:00 Test Item Value Reference Range Comments PROTIME (BEAKER) (test egkz=235) 15.5 seconds 11.7-14.7 INR (BEAKER) (test kcyf=423) 1.2 <=5.9 RECOMMENDED COUMADIN/WARFARIN INR THERAPY RANGESSTANDARD DOSE: 2.0 - 3.0 Includes: PROPHYLAXIS forvenous thrombosis, systemic embolization; TREATMENT for venous thrombosis and/or pulmonary embolus.HIGH RISK: Target INR is 2.5-3.5 for patients with mechanical heart valves.CBC W/PLT COUNT & AUTO [id number] 22:03:00 Test Item Value Reference Range Comments WHITE BLOOD CELL COUNT (BEAKER) (test fmak=636) 15.7 K/ L 3.5-10.5 RED BLOOD CELL COUNT (BEAKER) (test aeye=818) 4.35 M/ L 4.63-6.08 HEMOGLOBIN (BEAKER) (test ilpj=331) 13.4 GM/DL 13.7-17.5 HEMATOCRIT (BEAKER) (test nrzl=887) 40.1 % 40.1-51.0 MEAN CORPUSCULAR VOLUME (BEAKER) (test aanu=134) 92.2 fL 79.0-92.2 MEAN CORPUSCULAR HEMOGLOBIN (BEAKER) (test 30.8 pg 25.7-32.2 xkyz=849) MEAN CORPUSCULAR HEMOGLOBIN CONC (BEAKER) (test 33.4 GM/DL 32.3-36.5 hwhj=365) RED CELL DISTRIBUTION WIDTH (BEAKER) (test 12.6 % 11.6-14.4 wumc=641) PLATELET COUNT (BEAKER) (test dujx=696) 177 K/CU MM 150-450 MEAN PLATELET VOLUME (BEAKER) (test nzdd=110) 11.4 fL 9.4-12.4 NUCLEATED RED BLOOD CELLS (BEAKER) (test 0 /100 WBC 0-0 jzdk=489) NEUTROPHILS RELATIVE PERCENT (BEAKER) (test 80 % qalc=100) LYMPHOCYTES RELATIVE PERCENT (BEAKER) (test 11 % ojtl=700) MONOCYTES RELATIVE PERCENT (BEAKER) (test 7 % upuk=998) EOSINOPHILS RELATIVE PERCENT (BEAKER) (test 1 % yini=148) BASOPHILS RELATIVE PERCENT (BEAKER) (test 0 % mbss=079) NEUTROPHILS ABSOLUTE COUNT (BEAKER) (test 12.50 K/ L 1.78-5.38 dgah=974) LYMPHOCYTES ABSOLUTE COUNT (BEAKER) (test 1.78 K/ L 1.32-3.57 mfid=975) MONOCYTES ABSOLUTE COUNT (BEAKER) (test 1.08 K/ L 0.30-0.82 yumh=676) EOSINOPHILS ABSOLUTE COUNT (BEAKER) (test 0.14 K/ L 0.04-0.54 qiyl=403) BASOPHILS ABSOLUTE COUNT (BEAKER) (test 0.06 K/ L 0.01-0.08 etpu=597) IMMATURE GRANULOCYTES-RELATIVE PERCENT (BEAKER) 1 % 0-1 (test xxch=0384) [id number] 21:55:00 Test Item Value Reference Range Comments ACTIVATED CLOTTING TIME [address] [facility] [address] (BEAKER) (test qqdr=002) [place] [address] [id number] 19:50:00 Test Item Value Reference Range Comments ACTIVATED CLOTTING TIME [address] [facility] [address] (BEAKER) (test ijug=246) [place] [address]
--- NOTE | 2019-05-24 18:41 | RAD REPORT ---
EXAM DESCRIPTION: Carina Single View05/24/2019 6:19 pm CLINICAL HISTORY: Chest pain COMPARISON: March 2018 FINDINGS: The lungs appear clear of acute infiltrate. The heart is normal size IMPRESSION: No acute abnormalities displayed
[2019-05-24 18:51] LABS: Absolute Lymphocytes (CBC) 2.3 K/uL (0.7-4.9); Basophils % 0.7 % (0-1.3); Hematocrit 41.7 % (39.6-49.0); Lymphocytes % 25.5 % (15.3-44.8); RBC Red Blood Cell Count 4.59 M/uL (4.33-5.43)
[2019-05-24] MEDS ORDERED: MORPHINE 4 MG/ML SYR ONE (18:53)
[2019-05-24] MEDS ORDERED: IPRATROPIUM BROM 0.5MG/2.5ML ONE (18:53)
[2019-05-24] MEDS ORDERED: ASPIRIN EC 81 MG TAB PO ONE (18:53)
[2019-05-24] MEDS ORDERED: LEVALBUTEROL 1.25 MG/3 ML NEB ONE (18:53)
[2019-05-24] MEDS ORDERED: ONDANSETRON 4 MG/2 ML VIAL ONE (18:54)
--- NOTE | 2019-05-24 18:58 | ER ---
Nurse's Notes [facility] Name: Garcia Matta Age: 54 yrs Sex: Male : 1965 Arrival Date: 05/24/2019 Time: 17:47 Bed 25 Private MD: Diagnosis: Chest pain, unspecified;Chest pain on breathing;Essential (primary) hypertension;Pneumonia due to other specified bacteria-right upper lobe Presentation: 05/24 17:52 Presenting complaint: Left sided chest pain and SOB since yesterday. Pain is worse with hb deep breathing. Transition of care: patient was not received from another setting of care. Onset of symptoms was May 23, 2019. Risk Assessment: Do you want to hurt yourself or someone else? Patient reports no desire to harm self or others. Care prior to arrival: None. 17:52 Method Of Arrival: Ambulatory hb 17:52 Acuity: CATARINA 3 hb 18:33 Initial Sepsis Screen: Does the patient meet any 2 criteria? No. Patient's initial mg2 sepsis screen is negative. Does the patient have a suspected source of infection? No. Patient's initial sepsis screen is negative. Triage Assessment: 18:33 General: Appears in no apparent distress. Respiratory: Reports shortness of breath mg2 Onset: The symptoms/episode began/occurred gradually, the patient has mild shortness of breath. Historical: - Allergies: 17:56 No Known Allergies; hb - Home Meds: 17:56 aspirin 81 mg Oral chew 1 tab once daily [Active]; carvedilol 6.25 mg Oral tab 2 times hb per day [Active]; Plavix 75 mg Oral tab once daily [Active]; lisinopril 10 mg Oral tab once daily [Active]; atorvastatin 80 mg Oral tab once daily [Active]; levalbuterol HCl inhalation inhalation [Active]; isosorbide mononitrate 30 mg Oral Tb24 1 tab once daily [Active]; nitroglycerin 0.4 mg SL subl [Active]; - PMHx: 17:56 Hypertension; Myocardial infarction; Pneumothorax; hb - PSHx: 17:56 Heart stents; hb - Immunization history:: Adult Immunizations up to date. - Social history:: Smoking status: Patient/guardian denies using tobacco, the patient reports quitting approximately 1 years ago. - Ebola Screening: : No symptoms or risks identified at this time. - Family history:: not pertinent. Screenin:31 Abuse screen: Denies threats or abuse. Denies injuries from another. Nutritional mg2 screening: No deficits noted. Tuberculosis screening: No symptoms or risk factors identified. Fall Risk IV access (20 points). Assessment: 18:31 General: Appears in no apparent distress. comfortable, Behavior is calm, cooperative. mg2 Pain: Complains of pain in chest. Neuro: Level of Consciousness is awake, alert, obeys commands, Oriented to person, place, time, situation. Cardiovascular: Rhythm is sinus rhythm. Respiratory: Airway is patent Respiratory effort is even, unlabored, Respiratory pattern is regular, symmetrical, Breath sounds are clear bilaterally. in mediastinum, right upper lobe, left upper lobe, right middle lobe, left lower lobe and right lower lobe. GI: No signs and/or symptoms were reported involving the gastrointestinal system. : No signs and/or symptoms were reported regarding the genitourinary system. EENT: No signs and/or symptoms were reported regarding the EENT system. Derm: Skin is intact, is healthy with good turgor, Skin is pink, warm \T\ dry. normal. Musculoskeletal: Circulation, motion, and sensation intact. Capillary refill < 3 seconds, Reports weakness. 18:33 Neuro: Reports loss of appetite. mg2 Vital Signs: 17:56 BP 126 / 90; Pulse 98; Resp 16; Temp 97.5; Pulse Ox 97% on R/A; Weight 88.45 kg; Height hb 6 ft. 1 in. (185.42 cm); Pain 7/10; 19:42 BP 124 / 92; Pulse 81; Resp 18; Pulse Ox 100% on R/A; mg2 20:44 BP 120 / 92; Pulse 81; Resp 18; Temp 98; Pulse Ox 100% on R/A; mg2 17:56 Body Mass Index 25.73 (88.45 kg, 185.42 cm) hb ED Course: 17:47 Patient arrived in ED. mr 17:54 Triage completed. hb 17:56 Arm band placed on. hb 18:01 Edmar Franks MD is Attending Physician. dustin 18:05 Juan Feng, CINDY is Primary Nurse. mg2 18:32 No provider procedures requiring assistance completed. mg2 18:34 Patient has correct armband on for positive identification. monitor worker on. Pulse mg2 ox on. NIBP on. Door closed. Warm blanket given. 18:39 Initial lab(s) drawn, by me, sent to lab. EKG done, by ED staff. Inserted saline lock: lt1 20 gauge in left hand, using aseptic technique. 18:52 Radiology exam delayed due to lab results not completed at this time. (BUN/Creatinine). vm2 18:53 Lauryn Anthony MD is Hospitalizing Provider. dustin 19:21 Inserted saline lock: 20 gauge in right forearm, using aseptic technique. Blood mg2 collected. 20:43 Patient admitted, IV remains in place. mg2 21:15 First set of blood cultures drawn by me. lt1 21:28 Second set of blood cultures drawn 1st set of blood cultures at 21:15 in left wrist. lt1 2nd set of blood cultures at 21:28 in right hand. Administered Medications: 19:01 Drug: Zofran 4 mg Route: IVP; Site: left hand; mg2 20:35 Follow up: Response: No adverse reaction; Marked relief of symptoms mg2 19:17 Drug: morphine 4 mg Route: IVP; Site: right forearm; mg2 20:36 Follow up: Response: No adverse reaction mg2 19:17 Drug: Xopenex 2.5 mg Route: Inhalation; mg2 19:17 Drug: AtroVENT Aerosol 0.5 mg Route: Inhalation; mg2 19:17 Drug: Aspirin Chewable Tablet 162 mg Route: PO; mg2 20:30 Follow up: Response: No adverse reaction mg2 19:42 Drug: Pepcid 20 mg Route: IVP; Site: left hand; mg2 20:30 Follow up: Response: No adverse reaction mg2 20:35 Drug: Lovenox 1 mg/kg Route: Sub-Q; Site: left lower abdomen; mg2 20:35 Follow up: Response: No adverse reaction mg2 21:33 Drug: Zosyn 3.375 grams Route: IVPB; Infused Over: 60 mins; Site: right antecubital; tr5 Outcome: 18:55 Decision to Hospitalize by Provider. dustin 20:44 Admitted to Tele accompanied by william, via wheelchair, room 422, on monitor, with chart, mg2 Report called to CINDY Upton 20:44 Condition: stable 20:44 Instructed on the need for admit, Demonstrated understanding of instructions. 21:42 Patient left the ED. tr5 Signatures: Edmar Franks MD MD cha Rivera, Mary mr DislaConstanza, CINDY RN Kirstie Umaña 2 Juan Feng RN RN [facility] Matilde, Callie 1 Deyvi Chau RN RN tr5 Corrections: (The following items were deleted from the chart) 18:34 18:31 Musculoskeletal: Circulation, motion, and sensation intact. Capillary refill < 3 mg2 seconds, mg2
--- NOTE | 2019-05-24 18:58 | EDPHYS ---
Physician Documentation [facility] Name: Garcia Matta Age: 54 yrs Sex: Male : 1965 Arrival Date: 05/24/2019 Time: 17:47 Bed 25 Private MD: ED Physician Edmar Franks HPI: 05/24 18:51 This 54 yrs old Male presents to ER via Ambulatory with complaints of dustin Breathing Difficulty, Chest Pain. 18:51 The patient has shortness of breath at rest, with light activity. Onset: The dustin symptoms/episode began/occurred yesterday. Duration: The symptoms are continuous, and are steadily getting worse. The patient's shortness of breath has no apparent modifying factors. Associated signs and symptoms: The patient has no apparent associated signs or symptoms. Severity of symptoms: At their worst the symptoms were mild moderate in the emergency department the symptoms are unchanged. The patient has not experienced similar symptoms in the past. Historical: - Allergies: 17:56 No Known Allergies; hb - Home Meds: 17:56 aspirin 81 mg Oral chew 1 tab once daily [Active]; carvedilol 6.25 mg Oral tab 2 times hb per day [Active]; Plavix 75 mg Oral tab once daily [Active]; lisinopril 10 mg Oral tab once daily [Active]; atorvastatin 80 mg Oral tab once daily [Active]; levalbuterol HCl inhalation inhalation [Active]; isosorbide mononitrate 30 mg Oral Tb24 1 tab once daily [Active]; nitroglycerin 0.4 mg SL subl [Active]; - PMHx: 17:56 Hypertension; Myocardial infarction; Pneumothorax; hb - PSHx: 17:56 Heart stents; hb - Immunization history:: Adult Immunizations up to date. - Social history:: Smoking status: Patient/guardian denies using tobacco, the patient reports quitting approximately 1 years ago. - Ebola Screening: : No symptoms or risks identified at this time. - Family history:: not pertinent. ROS: 18:51 Constitutional: Negative for fever, chills, and weight loss, Eyes: Negative for injury, dustin pain, redness, and discharge, ENT: Negative for injury, pain, and discharge, Neck: Negative for injury, pain, and swelling, Abdomen/GI: Negative for abdominal pain, nausea, vomiting, diarrhea, and constipation, Back: Negative for injury and pain, : Negative for injury, bleeding, discharge, and swelling, MS/Extremity: Negative for injury and deformity, Skin: Negative for injury, rash, and discoloration, Neuro: Negative for headache, weakness, numbness, tingling, and seizure, Psych: Negative for depression, anxiety, suicide ideation, homicidal ideation, and hallucinations, Allergy/Immunology: Negative for hives, rash, and allergies, Endocrine: Negative for neck swelling, polydipsia, polyuria, polyphagia, and marked weight changes, Hematologic/Lymphatic: Negative for swollen nodes, abnormal bleeding, and unusual bruising. 18:51 Cardiovascular: Positive for chest pain. 18:51 Respiratory: Positive for shortness of breath, at rest. Exam: 18:51 Constitutional: This is a well developed, well nourished patient who is awake, alert, dustin and in no acute distress. Head/Face: Normocephalic, atraumatic. Eyes: Pupils equal round and reactive to light, extra-ocular motions intact. Lids and lashes normal. Conjunctiva and sclera are non-icteric and not injected. Cornea within normal limits. Periorbital areas with no swelling, redness, or edema. ENT: Nares patent. No nasal discharge, no septal abnormalities noted. Tympanic membranes are normal and external auditory canals are clear. Oropharynx with no redness, swelling, or masses, exudates, or evidence of obstruction, uvula midline. Mucous membranes moist. Neck: Trachea midline, no thyromegaly or masses palpated, and no cervical lymphadenopathy. Supple, full range of motion without nuchal rigidity, or vertebral point tenderness. No Meningismus. Cardiovascular: Regular rate and rhythm with a normal S1 and S2. No gallops, murmurs, or rubs. Normal PMI, no JVD. No pulse deficits. Respiratory: Lungs have equal breath sounds bilaterally, clear to auscultation and percussion. No rales, rhonchi or wheezes noted. No increased work of breathing, no retractions or nasal flaring. Abdomen/GI: Soft, non-tender, with normal bowel sounds. No distension or tympany. No guarding or rebound. No evidence of tenderness throughout. Back: No spinal tenderness. No costovertebral tenderness. Full range of motion. Male : Normal genitalia with no discharge or lesions. Skin: Warm, dry with normal turgor. Normal color with no rashes, no lesions, and no evidence of cellulitis. MS/ Extremity: Pulses equal, no cyanosis. Neurovascular intact. Full, normal range of motion. Neuro: Awake and alert, GCS 15, oriented to person, place, time, and situation. Cranial nerves II-XII grossly intact. Motor strength 5/5 in all extremities. Sensory grossly intact. Cerebellar exam normal. Normal gait. Psych: Awake, alert, with orientation to person, place and time. Behavior, mood, and affect are within normal limits. 18:51 Chest/axilla: Inspection: normal, Palpation: tenderness, that is mild, that is moderate, of the anterior aspect of left upper chest and left breast. 18:51 Musculoskeletal/extremity: DVT Exam: No signs of deep vein thrombosis. no pain, no swelling, no tenderness, negative Homans' sign noted on exam, no appreciated bluish discoloration, no erythema, no increased warmth. Vital Signs: 17:56 BP 126 / 90; Pulse 98; Resp 16; Temp 97.5; Pulse Ox 97% on R/A; Weight 88.45 kg; Height hb 6 ft. 1 in. (185.42 cm); Pain 7/10; 19:42 BP 124 / 92; Pulse 81; Resp 18; Pulse Ox 100% on R/A; mg2 20:44 BP 120 / 92; Pulse 81; Resp 18; Temp 98; Pulse Ox 100% on R/A; mg2 17:56 Body Mass Index 25.73 (88.45 kg, 185.42 cm) hb MDM: 18:02 Patient medically screened. [facility] 18:52 Data reviewed: vital signs, nurses notes, lab test result(s), EKG, radiologic studies, [facility] CT scan, plain films. 05/24 18:02 Order name: Basic Metabolic Panel [facility] 05/24 18:02 Order name: CBC with Diff [facility] 05/24 18:02 Order name: LFT's [facility] 05/24 18:02 Order name: Magnesium [facility] 05/24 18:02 Order name: NT PRO-BNP [facility] 05/24 18:02 Order name: PT-INR [facility] 05/24 18:02 Order name: Troponin (emerg Dept Use Only) [facility] 05/24 19:07 Order name: CBC with Automated Diff; Complete Time: 19:31 EDMS 12/16 19:43 Order name: Protime (+INR); Complete Time: 20:05 [facility] 05/24 19:48 Order name: Basic Metabolic Panel; Complete Time: 20:05 [facility] 05/24 19:48 Order name: Liver (Hepatic) Function; Complete Time: 20:05 [facility] 05/24 19:48 Order name: Troponin (Emerg Dept Use Only); Complete Time: 20:05 [facility] 05/24 19:48 Order name: NT PRO-BNP; Complete Time: 20:05 [facility] 05/24 19:48 Order name: Magnesium; Complete Time: 20:05 [facility] 05/24 18:02 Order name: XRAY Chest (1 view) [facility] 05/24 18:02 Order name: EKG; Complete Time: 18:07 [facility] 05/24 18:02 Order name: Cardiac monitoring; Complete Time: 18:30 [facility] 05/24 18:02 Order name: EKG - Nurse/Tech; Complete Time: 18:30 [facility] 05/24 18:47 Order name: CT Chest For PE Angio [facility] 05/24 18:51 Order name: RAD; Complete Time: 19:31 [facility] 05/24 20:43 Order name: CT; Complete Time: 20:53 [facility] 05/24 20:54 Order name: Blood Culture Adult (2) [facility] 05/24 18:02 Order name: IV Saline Lock; Complete Time: 18:30 [facility] 05/24 18:02 Order name: Labs collected and sent; Complete Time: 18:31 [facility] 05/24 18:02 Order name: O2 Per Protocol; Complete Time: 18:31 [facility] 05/24 18:02 Order name: O2 Sat Monitoring; Complete Time: 18:31 [facility] Administered Medications: 19:01 Drug: Zofran 4 mg Route: IVP; Site: left hand; mg2 20:35 Follow up: Response: No adverse reaction; Marked relief of symptoms mg2 19:17 Drug: morphine 4 mg Route: IVP; Site: right forearm; mg2 20:36 Follow up: Response: No adverse reaction mg2 19:17 Drug: Xopenex 2.5 mg Route: Inhalation; mg2 19:17 Drug: AtroVENT Aerosol 0.5 mg Route: Inhalation; mg2 19:17 Drug: Aspirin Chewable Tablet 162 mg Route: PO; mg2 20:30 Follow up: Response: No adverse reaction mg2 19:42 Drug: Pepcid 20 mg Route: IVP; Site: left hand; mg2 20:30 Follow up: Response: No adverse reaction mg2 20:35 Drug: Lovenox 1 mg/kg Route: Sub-Q; Site: left lower abdomen; mg2 20:35 Follow up: Response: No adverse reaction mg2 21:33 Drug: Zosyn 3.375 grams Route: IVPB; Infused Over: 60 mins; Site: right antecubital; tr5 Disposition: 05/24/19 18:55 Hospitalization ordered by Lauryn Anthony for Inpatient Admission. Preliminary diagnosis are Chest pain, unspecified, Chest pain on breathing, Essential (primary) hypertension, Pneumonia due to other specified bacteria - right upper lobe. - Bed requested for Telemetry/MedSurg (Inpatient). - Status is Inpatient Admission. tr5 - Condition is Fair. - Problem is new. - Symptoms have improved. UTI on Admission? No Signatures: Dispatcher [employer] EDMS Edmar Franks MD MD cha Garcia, Cindy RN RN Constanza Disla RN RN Argelia Moseley RN RN ea Juan Fneg RN RN [facility] Deyvi Chau RN RN tr5 Corrections: (The following items were deleted from the chart) 20:10 18:55 Hospitalization Ordered by Lauryn Anthony MD for Observation. Preliminary cg diagnosis is Chest pain, unspecified; Chest pain on breathing; Essential (primary) hypertension. Bed requested for Telemetry/MedSurg (observation). Status is Observation. Condition is Fair. Problem is new. Symptoms have improved. UTI on Admission? No. dustin 20:55 20:10 05/24/2019 18:55 Hospitalization Ordered by Lauryn Anthony MD for Observation. dustin Preliminary diagnosis is Chest pain, unspecified; Chest pain on breathing; Essential (primary) hypertension. Bed requested for Telemetry/MedSurg (observation). Status is Observation. Condition is Fair. Problem is new. Symptoms have improved. UTI on Admission? No. cg 20:58 20:55 05/24/2019 18:55 Hospitalization Ordered by Lauryn Anthony MD for Inpatient ea Admission. Preliminary diagnosis is Chest pain, unspecified; Chest pain on breathing; Essential (primary) hypertension; Pneumonia due to other specified bacteria - right upper lobe. Bed requested for Telemetry/MedSurg (Inpatient). Status is Inpatient Admission. Condition is Fair. Problem is new. Symptoms have improved. UTI on Admission? No. dustin 21:42 20:58 05/24/2019 18:55 Hospitalization Ordered by Lauryn Anthony MD for Inpatient tr5 Admission. Preliminary diagnosis is Chest pain, unspecified; Chest pain on breathing; Essential (primary) hypertension; Pneumonia due to other specified bacteria - right upper lobe. Bed requested for Telemetry/MedSurg (Inpatient). Status is Inpatient Admission. Condition is Fair. Problem is new. Symptoms have improved. UTI on Admission? No. ea
[2019-05-24 19:32] LABS: Protime INR 0.98
[2019-05-24] MEDS ORDERED: FAMOTIDINE 20 MG/2 ML VIAL IV ONE (19:37)
[2019-05-24] MEDS ORDERED: ACETAMINOPHEN 500 MG TAB PO PRN (19:38)
[2019-05-24] MEDS ORDERED: ALPRAZOLAM 0.25 MG TABLET PO PRN (19:38)
[2019-05-24] MEDS ORDERED: MORPHINE 4 MG/ML SYR IV PRN (19:38)
[2019-05-24 19:47] LABS: ALT/SGPT 54 U/L (12-78); AST/SGOT 29 U/L (15-37); Albumin 3.8 g/dL (3.4-5.0); Alkaline Phosphatase 84 U/L (45-117); BUN Blood Urea Nitrogen 17 mg/dL (7-18); Bicarbonate 28 mmol/L (21-32); Bilirubin Direct < 0.1 mg/dL (0-0.2); Bilirubin Total 0.2 mg/dL (0.2-1.0); Glucose Level 83 mg/dL (74-106); NT PRO-BNP 73 pg/mL (<125); Protein, Total 7.3 g/dL (6.4-8.2); Sodium Level 142 mmol/L (136-145); Troponin (Emerg Dept Use Only) < 0.02 ng/mL (0.0-0.045)
[2019-05-24] MEDS ORDERED: ENOXAPARIN 80 MG/0.8 ML SQ ONE (20:22)
--- NOTE | 2019-05-24 20:37 | RAD REPORT ---
EXAM DESCRIPTION: CT - Chest For Pe Angio - 05/24/2019 8:26 pm CLINICAL HISTORY: Chest pain TECHNIQUE: Dynamically enhanced axial 3 mm thick images of the chest were obtained during administra tion of <100> mL Isovue 370 IV contrast. Coronal and oblique reconstruction images were generated and reviewed. Exam utilizes a protocol for optimal evaluation of pulmonary arterial tree. Maximum intensity projections 3D imaging was utilized All CT scans are performed using dose optimization technique as appropriate and may include automated exposure control or mA/KV adjustment according to patient size. FINDINGS: A pulmonary embolus is not seen. A thoracic aortic aneurysm is not noted. A pleural effusion is not seen. A pericardial effusion is not seen. A mild right upper lobe opacities are present. Paraseptal emphysema is seen IMPRESSION: Negative for a pulmonary embolism. Mild right upper lobe pneumonia
[2019-05-24] MEDS ORDERED: PIPER/TAZO/NS 3.375gm 3.375 GM/100 ML BAG ONE (21:10)
[2019-05-24 21:53] VITALS: BMI 25.4
[2019-05-24] MEDS: METOPROLOL TAR 50 MG TAB PO SCH (22:49)
[2019-05-24 23:53] LABS: Urine Appearance CLEAR; Urine Bilirubin NEGATIVE (NEG); Urine Blood NEGATIVE (NEG); Urine Color YELLOW; Urine Glucose NEGATIVE (NEG); Urine Protein NEGATIVE (NEG); Urine Specific Gravity >=1.030 (1.005-1.030)
[2019-05-25 00:13] LABS: Urine Microscopic Reflex NO UMIC
[2019-05-25] MEDS ORDERED: PIPER/TAZO/NS 3.375gm 3.375 GM/100 ML BAG IVPB SCH (03:00)
[2019-05-25] MEDS ORDERED: PIPER/TAZO/NS 3.375gm 3.375 GM/100 ML BAG ONE (04:00)
[2019-05-25] MEDS ORDERED: NA CHLORIDE 0.9% 1,000 ML ONE (06:52)
--- NOTE | 2019-05-25 06:54 | EKG ---
Test Date: 2019-05-24 Test Time: 18:20:18 Assisted Living Housekeeper: LMT MEASUREMENT RESULTS: Intervals: Rate: 83 HI: 128 QRSD: 98 QT: 374 QTc: 439 Fabius: P: 17 HI: 128 QRS: 53 T: 93 INTERPRETIVE STATEMENTS: Normal sinus rhythm Normal ECG Compared to ECG 04/19/2019 13:04:55 No significant changes Electronically Signed On 05-25-19 06:53:44 SERVICE OPERATOR by Ad Deng
--- NOTE | 2019-05-25 07:26 | P.HP ---
Certification for Inpatient Patient admitted to: Observation With expected LOS: <2 Midnights Patient will require the following post-hospital care: None Practitioner: I am a practitioner with admitting privileges, knowledge of patient current condition, hospital course, and medical plan of care. Services: Services provided to patient in accordance with Admission requirements found in Title 42 Section 412.3 of the Code of Federal Regulations Patient History Date of Service: 05/24/19 Reason for admission: Chest pain rule out acute coronary syndrome/right upper lobe pneumonia History of Present Illness: Patient is a 54-year-old gentleman came to the hospital chest discomfort. Pain was mainly in the sternal region. Patient has had a recent cardiac catheterization which required 3 coronary artery stent placement. Patient also had another 80% lesion which was not able to be stented at that time. Patient was given heart medication. He has been compliant with taking his medicines. Patient continues to have angina. He came into the hospital for chest pain once again. Patient was found have a right upper lobe pneumonia on CT PE protocol. He has history of COPD and emphysema. He has never had pulmonary function testing. He will be admitted for treatment of his COPD & his right upper lobe pneumonia. We will also rule him out for acute myocardial infarction. Allergies No Known Allergies Allergy (Verified 04/19/19 16:57) Home Medications: Aspirin Chewable [Aspirin Chewable*] 1 tab PO DAILY 05/24/19 Atorvastatin Calcium [Lipitor] 1 tab PO DAILY 05/24/19 Clopidogrel Bisulfate [Plavix*] 1 tab PO DAILY 05/24/19 Isosorbide Mononitrate [Isosorbide Mononitrate ER] 1 tab PO DAILY 05/24/19 Levalbuterol Tartrate [Levalbuterol Tartrate Hfa] 2 puff IH Q4HP PRN 05/24/19 carvediloL [Coreg*] 1 tab PO BID 05/24/19 lisinopriL [Lisinopril] 1 tab PO DAILY 05/24/19 - Past Medical/Surgical History Diabetic: No -: Coronary artery disease -: Hypertension -: Tobacco abuse -: COPD -: [place] -: Pneumothorax -: Stent x 3 (2016) Psychosocial/ Personal History: Patient lives at home. - Family History Mother Medical History: Heart disease Father Medical History: Kidney disease - Social History Smoking Status: Former smoker Alcohol use: No CD- Drugs: No Caffeine use: Yes Place of Residence: Home Review of Systems 10-point ROS is otherwise unremarkable Physical Examination - Vital Signs Temperature: 97.6 F Blood Pressure: 100/70 Pulse: 73 Respirations: 18 Pulse Ox (%): 96 - Physical Exam General: Alert, In no apparent distress, Oriented x3 HEENT: Atraumatic, PERRLA, Mucous membr. moist/pink, EOMI, Sclerae nonicteric Neck: Supple, 2+ carotid pulse no bruit, No LAD, Without JVD or thyroid abnormality Respiratory: Diminished Cardiovascular: Regular rate/rhythm, Normal S1 S2, Systolic murmur (2/6) Gastrointestinal: Normal bowel sounds, Soft and benign, Non-distended, No tenderness Musculoskeletal: No clubbing, No swelling, No tenderness Integumentary: No rashes Neurological: Normal gait, Normal speech, Normal strength at 5/5 x4 extr, Normal tone, Sensation intact, Cranial nerves 3-12 intact, Normal affect Lymphatics: No axilla or inguinal lymphadenopathy - Studies Laboratory Data (last 24 hrs) 05/24/19 19:16: PT 11.6, INR 0.98 05/24/19 19:16: Sodium 142, Potassium 4.0, BUN 17, Creatinine 0.96, Glucose 83, Magnesium 2.0, Total Bilirubin 0.2, AST 29, ALT 54, Alkaline Phosphatase 84 05/24/19 18:35: WBC 8.9, Hgb 14.5, Hct 41.7, Plt Count 172 Assessment & Plan - Problems (Diagnosis) (1) Chest pain, rule out acute myocardial infarction Current Visit: Yes Status: Acute (2) Right upper lobe pneumonia Current Visit: Yes Status: Acute (3) COPD (chronic obstructive pulmonary disease) Current Visit: Yes Status: Acute (4) CAD (coronary artery disease) Onset Date: 10/23/17 Current Visit: No Status: Acute Qualifiers: (5) Chest pain Onset Date: 10/23/17 Current Visit: No Status: Acute Qualifiers: (6) HTN (hypertension) Onset Date: 10/23/17 Current Visit: No Status: Acute Qualifiers: (7) Tobacco abuse Onset Date: 10/23/17 Current Visit: No Status: Acute - Plan 1. Serial troponins and EKG 2. Cardiology consultation 3. May need to repeat cardiac catheterization in the near future once his pneumonia is cleared up 4. Anti-platelet therapy, anti coagulation, beta-justine, statin, and O2 as needed 5. IV morphine for pain 6. Nitro p.r.n. 7. Continue with IV antibiotics 8. Awaiting sputum and blood culture 9. Repeat chest x-ray 10. Outpt pulmonary consultation 11. Continue with nebs as needed 12. O2 per protocol 13. Continue with gentle hydration 14. Repeat labs including CBC and renal function in a.m. 15. GI and DVT prophylaxis Discharge Plan: Home Plan to discharge in: Greater than 2 days - Advance Directives Does patient have a Living Will: Yes Does patient have a Durable POA for Healthcare: No - Code Status/Comfort Care Code Status Assessed: Yes Code Status: Full Code Critical Care: No Time Spent Managing PTS Care (In Minutes): 40
[2019-05-25] MEDS ORDERED: ALBUTEROL 2.5 MG/3 ML NEB SOL NEB PRN (07:28)
[2019-05-25] MEDS ORDERED: IPRATROPIUM BROM 0.5MG/2.5ML NEB PRN (07:28)
[2019-05-25] MEDS ORDERED: PNEUMOCOCCAL VACCINE 0.5 ML IMVAC ONE (08:00)
[2019-05-25] MEDS: lisinopriL 10 MG TAB PO SCH (09:09)
[2019-05-25] MEDS: METOPROLOL TAR 50 MG TAB PO SCH (09:10)
[2019-05-25] MEDS: ATORVASTATIN 80 MG TAB PO SCH (09:10)
[2019-05-25] MEDS: ASPIRIN EC 81 MG TAB PO SCH (09:10)
[2019-05-25] MEDS: predniSONE 20 MG TAB PO SCH ×2 (09:10→20:58)
[2019-05-25] MEDS: ISOSORBIDE MONO SR 30 MG TAB PO SCH (09:11)
[2019-05-25] MEDS: ENOXAPARIN 40 MG/0.4 ML SQ SCH (09:11)
[2019-05-25] MEDS: CLOPIDOGREL 75 MG TABLET PO SCH (09:11)
[2019-05-25] MEDS: PIPER/TAZO/NS 3.375gm 3.375 GM/100 ML BAG IVPB SCH ×2 (11:03→16:55)
--- NOTE | 2019-05-25 17:37 | CON ---
Date of Consultation: 05/25/2019 Reason For Consultation: Chest pain. History Of Present Illness: The patient is a 54-year-old, had 3 stents in September 2017 in his coronari es. He also had a what sounds like a very distal OM lesion that was left alone. He has a history of hypertension, dyslipidemia, smoking, noncompliance. He goes with [facility], came in with ches t pain that is worse only when he takes a deep breath that is sharp, stabbing. No fever or chills. Has had some cough. Denied PND, orthopnea, pedal edema, palpitations, or syncope. Symptoms are not exertional. He has already ruled out MN. Chest x-ray is negative. Troponin is negative. All his l aboratory evaluation was negative. He had a normal echocardiogram and Lexiscan in April of 2019. Past Medical History: As stated above. Allergies: NONE. Review of Systems: Negative. Social History: Positive for tobacco. Family History: Negative. Medications: Include aspirin, Lipitor, Plavix, Imdur, Coreg, and lisinopril. Physical Examination: Vital Signs: Stable. Afebrile. HEENT: Negative. Neck: Supple with no bruit. Chest: Clear to auscultation and percussion. Cardiac: Revealed a regular rhythm and rate. No murmurs, gallops, or rubs. Abdomen: Benign. Extremities: Revealed no clubbing, cyanosis, or edema. Diagnostic Data: As stated earlier. Impression And Plan: Chest pain that is pleuritic. Echocardiogram is pending. Recent echo and Nadege were negative a month ago. I would not want to repeat any further cardiac intervention at this poin t. Troponin is negative. EKG is negative. Chest x-ray is negative. I would continue aspirin, Lipi tor, Plavix, Imdur, Coreg, and lisinopril. If the echocardiogram is normal, he can go home. FREIDA/MARI Voice ID: [id number] Report ID: [id number]
--- NOTE | 2019-05-25 17:46 | PN ---
Date of Progress Note: 05/25/2019 Subjective: Patient seen and examined, chart reviewed, and case discussed with RN and Dr. Bradshaw. Patient still having some shortness of breath and pleuritic chest pain. Medications: List reviewed. Physical Examination: Vital Signs: Temperature 98, heart rate 75, blood pressure 106/75, respirations 20, O2 of 96% on jatinder m air. General: Awake, alert, oriented x3, in some mild distress due to pain. CV: S1, S2. Regular rate and rhythm. Peripheral pulses present. Respiratory: Diminished breath sounds on the left. No crackles or wheezing. Gastrointestinal: Abdomen is soft, nontender, nondistended. Positive bowel sounds. Extremities: No clubbing, cyanosis, or edema. Neurologic: Nonfocal. Laboratory Data: Troponin is less than 0.02 x3. Triglycerides 204, cholesterol 114, LDL 46, HDL 27. Assessment: A 54-year-old male with: 1.Pleuritic chest pain. Acute coronary syndrome is ruled out, likely secondary to pneumonia. We wi ll continue with pain medications. 2.Right upper lobe pneumonia. Continue with IV antibiotics. Follow up on cultures. 3.Chronic obstructive pulmonary disease, chronic bronchitis. Patient will need to have outpatient P FTs done. Continue with nebulizer treatments and steroids as needed. Patient will need to be added on maintenance inhaler. 4.Coronary artery disease, [place] artery and [place] heart, status post stent x3 recently with angina . We will continue with aspirin and continue home medications. 5.Essential hypertension, stable. 6.Nicotine dependence with cigarette smoking. Continuous counseled. 7.Deep vein thrombosis prophylaxis, addressed. Plan: Follow up with cardiac recommendations. Continue IV antibiotics. Follow up on blood cultures . Likely discharge in the next 24 hours depending on clinical response. SA/MODL Voice ID: [id number] Report ID: [id number]
[2019-05-25] MEDS: DULERA 100/5 (MOMETASONE/FORMOTEROL) INHALER IH SCH (20:56)
[2019-05-25] MEDS: carvediloL 6.25 MG TAB PO SCH (20:58)
[2019-05-26] MEDS: PIPER/TAZO/NS 3.375gm 3.375 GM/100 ML BAG IVPB SCH ×2 (00:11→08:27)
[2019-05-26 04:17] LABS: Absolute Lymphocytes (CBC) 1.3 K/uL (0.7-4.9); Basophils % 0.1 % (0-1.3); Hematocrit 39.9 % (39.6-49.0); Lymphocytes % 10.8 % (15.3-44.8); MPV 10.3 fL (7.6-11.3); RBC Red Blood Cell Count 4.38 M/uL (4.33-5.43)
[2019-05-26 04:35] LABS: ALT/SGPT 43 U/L (12-78); AST/SGOT 19 U/L (15-37); Albumin 3.4 g/dL (3.4-5.0); Alkaline Phosphatase 70 U/L (45-117); BUN Blood Urea Nitrogen 16 mg/dL (7-18); Bicarbonate 25 mmol/L (21-32); Bilirubin Total 0.3 mg/dL (0.2-1.0); Glucose Level 137 mg/dL (74-106); Potassium 4.2 mmol/L (3.5-5.1); Protein, Total 6.8 g/dL (6.4-8.2); Sodium Level 139 mmol/L (136-145)
[2019-05-26 07:54] VITALS: BP 121/89; TEMP 97.7
--- NOTE | 2019-05-26 07:56 | EKG ---
Test Date: 2019-05-25 Test Time: 10:43:57 Occasional Babysitter: SONIA MEASUREMENT RESULTS: Intervals: Rate: 71 AK: 132 QRSD: 98 QT: 394 QTc: 428 [place]: P: 20 AK: 132 QRS: 52 T: 86 INTERPRETIVE STATEMENTS: Normal sinus rhythm Normal ECG Compared to ECG 05/24/2019 18:20:18 No significant changes Electronically Signed On 05-26-19 07:56:11 PLANT GUIDE by Ad Deng
[2019-05-26] MEDS: DULERA 100/5 (MOMETASONE/FORMOTEROL) INHALER IH SCH (08:28)
[2019-05-26] MEDS: ISOSORBIDE MONO SR 30 MG TAB PO SCH (08:29)
[2019-05-26] MEDS: predniSONE 20 MG TAB PO SCH (08:29)
[2019-05-26] MEDS: ASPIRIN EC 81 MG TAB PO SCH (08:29)
[2019-05-26] MEDS: carvediloL 6.25 MG TAB PO SCH (08:29)
[2019-05-26] MEDS: lisinopriL 10 MG TAB PO SCH (08:29)
[2019-05-26] MEDS: ATORVASTATIN 80 MG TAB PO SCH (08:29)
[2019-05-26] MEDS: CLOPIDOGREL 75 MG TABLET PO SCH (08:29)
[2019-05-26] MEDS: ENOXAPARIN 40 MG/0.4 ML SQ SCH (08:30)
--- NOTE | 2019-05-26 09:04 | P.DS ---
Admission Date: 05/24/19 Discharge Date: 05/26/19 Primary Care Provider: none Disposition: ROUTINE DISCHARGE Discharge Condition: GOOD Reason for Admission: Chest pain rule out acute coronary syndrome/right upper lobe pneumonia Consultations: Cardiology-Dr. Chacon Procedures: CT chest: FINDINGS: A pulmonary embolus is not seen. A thoracic aortic aneurysm is not noted. A pleural effusion is not seen. A pericardial effusion is not seen. A mild right upper lobe opacities are present. Paraseptal emphysema is seen IMPRESSION: Negative for a pulmonary embolism. Mild right upper lobe pneumonia ECHO 04/20/2019: EF 75% LEFT VENTRICULAR WALL MOTION: NORMAL DOPPLER/COLOR FLOW: NORMAL COMMENTS: AORTIC SCLEROSIS WITH NO STENOSIS. MITRAL ANNULAR CALCIFICATION. NORMAL LEFT VENTRICULAR SIZE AND FUNCTION. Cardiac stress test 04/20/2019: FINDINGS: The end diastolic volume is 121 ml, the end systolic volume is 67 ml , and the ejection fraction is 44 %. Large anteroseptal defect lower wall and apex present unchanged between rest and stress imaging. Diminished activity is seen along the inferior wall primarily at the base. This is also unchanged between rest and stress imaging. No stress-induced ischemic changes identifiable. IMPRESSION: No stress-induced ischemic change identifiable. Anteroseptal wall and apex fixed defect most likely scarring. Inferior wall fixed defect near the base also suspected to be scarring. End-diastolic volume enlarged at 1:00 21 milliliters with a 44% ejection fraction. Medical Problem List: Pleuritic chest pain secondary to right upper lobe pneumonia COPD CAD with prior stent x3 Hypertension Hyperlipidemia Tobacco abuse Brief History of Present Illness: 54-year-old male presented to the emergency room with chest pain. Patient with history of CAD, hypertension and tobacco abuse. CT revealed right upper lobe pneumonia. Patient was admitted for further evaluation and treatment. Hospital Course: Patient presented with chest pain. CT revealed right upper lobe pneumonia. Patient was admitted for further evaluation. Cardiac enzymes unremarkable. Patient seen and evaluated by Cardiology. Previous echo and cardiac stress test done 04/20/2019 reviewed. Both unremarkable. Cardiology recommended no further intervention at this time. Patient remained stable at discharge. No significant chest pain or shortness of breath. At discharge patient will continue with Augmentin 875 mg 1 pill twice daily for 7 days. Patient will be provided Tessalon Perles 100 mg 3 times a day as needed for cough and Mucinex 600 mg twice daily as needed for congestion. Recommend a follow up with a PCP to establish care. Recommend to recheck chest x-ray in 2-4 weeks to monitor resolution. Patient with underlying COPD. Will recommend to continue with COPD medication- Symbicort 2 puffs twice daily and Xopenex 2 puffs 3 times a day as needed for shortness of breath. Recommend follow up with pulmonology to establish care and continue therapy. Patient with underlying CAD with prior stents. Cardiac enzymes unremarkable. Patient seen and evaluated by Cardiology. No further cardiac intervention needed at this time. Patient will continue with his current medications- aspirin 81 mg daily, Plavix 75 mg daily, and isosorbide mononitrate ER 30 mg daily. Recommend follow up with cardiology in 2-4 weeks to monitor his progress and continue continuity. Patient with hypertension. At discharge he will continue with his medications- lisinopril 10 mg daily and carvedilol 6.25 mg 1 pill twice daily. Recommend to maintain blood pressures less 150/80. Further adjustment can be done by his PCP. Patient with hyperlipidemia. At discharge patient will continue with Lipitor 80 mg daily. Patient with tobacco abuse. Tobacco cessation education provided. Vital Signs/Physical Exam: Temp Pulse Resp BP Pulse Ox 97.7 F 60 16 121/89 97 05/26/19 07:54 05/26/19 08:29 05/26/19 07:54 05/26/19 08:29 05/26/19 07:54 General: Alert, In no apparent distress, Oriented x3, Cooperative HEENT: Atraumatic Neck: Supple Respiratory: Clear to auscultation bilaterally, Normal air movement Cardiovascular: Normal pulses, Regular rate/rhythm Gastrointestinal: Normal bowel sounds, Soft and benign, Non-distended, No tenderness, No masses, No rebound, No guarding Musculoskeletal: No erythema, No tenderness, No warmth Integumentary: No tenderness/swelling, No erythema, No warmth, No cyanosis Neurological: Normal speech, Normal strength at 5/5 x4 extr, Normal tone, Normal affect Laboratory Data at Discharge: WBC 11.7 K/uL (4.3-10.9) H D 05/26/19 03:32 Hgb 13.5 g/dL (13.6-17.9) L 05/26/19 03:32 Hct 39.9 % (39.6-49.0) 05/26/19 03:32 Plt Count 153 K/uL (152-406) 05/26/19 03:32 PT 11.6 SECONDS (9.5-12.5) 05/24/19 19:16 INR 0.98 05/24/19 19:16 Sodium 139 mmol/L (136-145) 05/26/19 03:32 Potassium 4.2 mmol/L (3.5-5.1) 05/26/19 03:32 BUN 16 mg/dL (7-18) 05/26/19 03:32 Creatinine 0.84 mg/dL (0.55-1.3) 05/26/19 03:32 Glucose 137 mg/dL (74-106) H 05/26/19 03:32 Magnesium 2.0 mg/dL (1.8-2.4) 05/24/19 19:16 Total Bilirubin 0.3 mg/dL (0.2-1.0) 05/26/19 03:32 AST 19 U/L (15-37) 05/26/19 03:32 ALT 43 U/L (12-78) 05/26/19 03:32 Alkaline Phosphatase 70 U/L (45-117) 05/26/19 03:32 Troponin I < 0.02 ng/mL (0.0-0.045) 05/25/19 05:01 Triglycerides 204 mg/dL (<150) H 05/25/19 05:01 Cholesterol 114 mg/dL (<200) 05/25/19 05:01 HDL Cholesterol 27 mg/dL (40-60) L 05/25/19 05:01 Cholesterol/HDL Ratio 4.22 05/25/19 05:01 Home Medications: Aspirin Chewable [Aspirin Chewable*] 1 tab PO DAILY 05/24/19 Atorvastatin Calcium [Lipitor] 1 tab PO DAILY 05/24/19 Clopidogrel Bisulfate [Plavix*] 1 tab PO DAILY 05/24/19 Isosorbide Mononitrate [Isosorbide Mononitrate ER] 1 tab PO DAILY 05/24/19 carvediloL [Coreg*] 1 tab PO BID 05/24/19 lisinopriL [Lisinopril] 1 tab PO DAILY 05/24/19 Amoxicillin/Potassium Clav [Augmentin 875-125 Tablet] 1 each PO BID #14 tablet 12/18/19 Benzonatate [Tessalon Perle] 100 mg PO TID PRN #15 cap 05/26/19 Budesonide/Formoterol Fumarate [Symbicort 160-4.5 Mcg Inhaler] 2 puff IH BID #1 hfa.aer.ad 05/26/19 Guaifenesin [Mucinex] 600 mg PO BID PRN #15 tab.er.12h 05/26/19 Levalbuterol Tartrate [Levalbuterol Tartrate Hfa] 2 puff IH TID PRN #1 hfa.aer.ad 05/26/19 New Medications: Amoxicillin/Potassium Clav [Augmentin 875-125 Tablet] 1 each PO BID #14 tablet Benzonatate [Tessalon Perle] 100 mg PO TID PRN #15 cap PRN Reason: Cough Budesonide/Formoterol Fumarate [Symbicort 160-4.5 Mcg Inhaler] 2 puff IH BID #1 hfa.aer.ad Guaifenesin [Mucinex] 600 mg PO BID PRN #15 tab.er.12h PRN Reason: Cough Levalbuterol Tartrate [Levalbuterol Tartrate Hfa] 2 puff IH TID PRN #1 hfa.aer.ad PRN Reason: Wheezing Patient Discharge Instructions: 1. Recommend follow up with a PCP to establish care and to follow up this hospitalization. 2. Patient presented with chest pain. CT revealed right upper lobe pneumonia. Patient was admitted for further evaluation. Cardiac enzymes unremarkable. Patient seen and evaluated by Cardiology. Previous echo and cardiac stress test done 04/20/2019 reviewed. Both unremarkable. Cardiology recommended no further intervention at this time. Patient remained stable at discharge. No significant chest pain or shortness of breath. At discharge patient will continue with Augmentin 875 mg 1 pill twice daily for 7 days. Patient will be provided Tessalon Perles 100 mg 3 times a day as needed for cough and Mucinex 600 mg twice daily as needed for congestion. Recommend a follow up with a PCP to establish care. Recommend to recheck chest x-ray in 2-4 weeks to monitor resolution. 3. Patient with underlying COPD. Will recommend to continue with COPD medication-Symbicort 2 puffs twice daily and Xopenex 2 puffs 3 times a day as needed for shortness of breath. Recommend follow up with pulmonology to establish care and continue therapy. 4. Patient with underlying CAD with prior stents. Cardiac enzymes unremarkable. Patient seen and evaluated by Cardiology. No further cardiac intervention needed at this time. Patient will continue with his current medications-aspirin 81 mg daily, Plavix 75 mg daily, and isosorbide mononitrate ER 30 mg daily. Recommend follow up with cardiology in 2-4 weeks to monitor his progress and continue continuity. 5. Patient with hypertension. At discharge he will continue with his medications-lisinopril 10 mg daily and carvedilol 6.25 mg 1 pill twice daily. Recommend to maintain blood pressures less 150/80. Further adjustment can be done by his PCP. 6. Patient with hyperlipidemia. At discharge patient will continue with Lipitor 80 mg daily. 7. Patient with tobacco abuse. Tobacco cessation education provided. Diet: AHA Activity: Ad shlomo Followup: Jordi Bradshaw MD [ACTIVE - CAN ADMIT] - Neal Chacon MD [ACTIVE - CAN ADMIT] - Time spent managing pt's care (in minutes): 55
[2019-05-26 10:16] VITALS: O2SAT 93
== END 2019-05-26 11:06 | disposition home or self-care (01) | DRG 194 ==
LOC: ER 17:45 → ERHOLD 19:39 → OBSVTOIN 19:39 → 4TH 20:35
PROVIDERS: ADMIT Hospitalist; ATTEND Family Medicine
DX: J18.9 Pneumonia, unspecified organism (principal); J44.0 Chronic obstructive pulmonary disease with (acute) lower respiratory infection; R07.81 Pleurodynia; I25.10 Atherosclerotic heart disease of native coronary artery without angina pectoris; I10 Essential (primary) hypertension; F17.200 Nicotine dependence, unspecified, uncomplicated; F17.210 Nicotine dependence, cigarettes, uncomplicated; I25.2 Old myocardial infarction; Z87.891 Personal history of nicotine dependence
CPT/HCPCS: 36415; 71045; 71275; 80048; 80053; 80061; 80076; 81003; 83036; 83735; 83880; 84145; 84484; 85025; 85610; 87040; 93005; 96372; 96374; 96375; 99285; J1650; J2405; J2543; J7030; J7512; J7606; Q9967

== ENCOUNTER 2019-07-26 14:32 | Emergency (ER) | payer SELFPAY ==
--- OUTSIDE RECORDS SUMMARY | 2019-07-26 14:36 | XMS REPORT | Summary of Care ---
:1965 Author Organization [facility] Address [address] [place] [id number] Care Team Providers Name Role Phone Vilma Morris GUERRERO Primary Care Provider Reason for Visit Reason Comments Headache Right temporal area Rx Concern/Question Encounter Details Date Type Department Care Team Description 07/22/2019 Office Visit [facility]iatric [facility] Linda MorrisGUERRERO casiano [address] [place] [address] Intractable episodic [facility] Primary cluster headache Clinic (Primary Dx) [address] [place] [address] Allergies No Known Allergiesdocumented as of this encounter (statuses as of 07/22/2019) Medications Medication Sig Dispensed Refills Start Date End Date Status aspirin 81 mg EC Take 81 mg by 0 Active tabletIndications: mouth daily. Coronary artery disease involving [place] coronary artery of [place] heart without angina pectoris, Essential hypertension nitroglycerin 0.[address] 0.4 mg 0 Active sublingual under the tongue tabletIndications: every 5 (five) Coronary artery disease minutes as involving [place] needed for Chest coronary artery of pain. Not to quechan heart without exceed 3 doses angina pectoris, Essential hypertension budesonide-formoterol Inhale 2 Puffs 2 0 Active (SYMBICORT) 160-4.5 (two) times mcg/actuation inhaler daily. levalbuterol 45 Inhale 1-2 Puffs 0 Active mcg/actuation inhaler 3 (three) times daily as needed for Wheezing. atorvastatin 80 mg Take 1 tablet by 30 tablet 5 06/10/2019 Active tabletIndications: mouth at Coronary artery disease bedtime. involving [place] coronary artery of [place] heart without angina pectoris lisinopril 10 mg Take 1 tablet by 30 tablet 4 06/10/2019 Active tabletIndications: mouth daily. Essential hypertension, Coronary artery disease involving [place] coronary artery of [place] heart without angina pectoris clopidogrel 75 mg Take 1 tablet by 30 tablet 5 06/10/2019 Active tabletIndications: mouth daily. Coronary artery disease involving [place] coronary artery of [place] heart without angina pectoris isosorbide mononitrate TAKE 1 TABLET BY 30 tablet 2 06/18/2019 Active 30 mg 24 hr MOUTH ONCE DAILY tabletIndications: Coronary artery disease involving [place] coronary artery of [place] heart without angina pectoris carvediloL 12.5 mg Take 1 tablet by 180 tablet 4 07/09/2019 Active tabletIndications: mouth 2 (two) Coronary artery disease times daily with involving que[place] meals. coronary artery of [place] heart with angina pectoris levothyroxine 75 mcg Take 1 tablet by 30 tablet 5 07/13/2019 Active tabletIndications: mouth every Hypothyroidism morning. (acquired) levothyroxine 50 mcg Take 1 tablet by 30 tablet 5 07/16/2019 Active tabletIndications: mouth every Hypothyroidism morning. (acquired) ibuprofen 600 mg Take 1 tablet by 20 tablet 0 07/20/2019 Active tabletIndications: mouth every 8 Nonintractable (eight) hours as headache, unspecified needed for Pain chronicity pattern, (scale 4-6). unspecified headache type butalbital-acetaminophe Take 1 tablet by 28 tablet 0 07/22/2019 Active n-caff 50-325-40 mg mouth every 4 tabletIndications: (four) hours as Intractable episodic needed for Pain cluster headache (scale 4-6). documented as of this encounter (statuses as of 07/22/2019) Active Problems Problem Noted Date Chest pain 06/18/2019 Coronary artery disease involving quechan heart 11/20/2017 Essential hypertension 11/20/2017 Tobacco abuse 11/20/2017 documented as of this encounter (statuses as of 07/22/2019) Social History Tobacco Use Types Packs/Day Years Used Date Current Every Day Smoker Cigarettes 0.5 35 Started: 11/21/1979 Smokeless Tobacco: Never Used Alcohol Use Drinks/Week oz/Week Comments Yes SOCIAL Sex Assigned at Date Recorded Not on file Job Start Date Occupation Industry Not on file Not on file Not on file Travel History Travel Start Travel End No recent travel history available. documented as of this encounter Last Filed Vital Signs Vital Sign Reading Time Taken Comments Blood Pressure 100/64 07/22/2019 8:38 AM GUARD CAPTAIN Pulse 80 07/22/2019 8:38 AM GUARD CAPTAIN Temperature 36.1 C (97 F) 07/22/2019 8:38 AM GUARD CAPTAIN Respiratory Rate 18 07/22/2019 8:38 AM GUARD CAPTAIN Oxygen Saturation - - Inhaled Oxygen Concentration - - Weight 86 kg (189 lb 9.6 oz) 07/22/2019 8:38 AM GUARD CAPTAIN Height 185.4 cm (6' 1") 07/22/2019 8:38 AM GUARD CAPTAIN Body Mass Index 25.01 07/22/2019 8:38 AM GUARD CAPTAIN documented in this encounter Progress Notes Vilma Morris, GUERRERO - 07/22/2019 8:30 AM CST Cc: Chief Complaint Patient presents with Headache Right temporal area Rx Concern/Question HPI Garcia Matta is a 54 year old male being seen today for hospital follow up from 2 days ago when he went to the ED with new onset of severe headaches. CT head was negative for bleed or clot. He thinks it may have been because his carvedilol that was increased from 6.25 mg to 12.5 mg bid. Advised to to decrease dose to daily until he could follow up. Still having headaches with the lower dose. Was given Ibuprofen but did not start because he is on plavix and was afraid of bleeding. Seen by Dr Galdamez with [facility] on 07/09/19 who has recommended he have a heart cath with possible stenting. Allergies Garcia has No Known Allergies. Medications Outpatient Medications Prior to Visit Medication Sig Dispense Refill carvediloL 12.5 mg tablet Take 1 tablet by mouth 2 (two) times daily with meals. 180 tablet 4 budesonide-formoterol (SYMBICORT) 160-4.5 mcg/actuation inhaler Inhale 2 Puffs 2 (two) times daily. ibuprofen 600 mg tablet Take 1 tablet by mouth every 8 (eight) hours as needed for Pain (scale 4-6). 20 tablet 0 levothyroxine 50 mcg tablet Take 1 tablet by mouth every morning. 30 tablet 5 levothyroxine 75 mcg tablet Take 1 tablet by mouth every morning. 30 tablet 5 isosorbide mononitrate 30 mg 24 hr tablet TAKE 1 TABLET BY MOUTH ONCE DAILY 30 tablet 2 atorvastatin 80 mg tablet Take 1 tablet by mouth at bedtime. 30 tablet 5 clopidogrel 75 mg tablet Take 1 tablet by mouth daily. 30 tablet 5 levalbuterol 45 mcg/actuation inhaler Inhale 1-2 Puffs 3 (three) times daily as needed for Wheezing. lisinopril 10 mg tablet Take 1 tablet by mouth daily. 30 tablet 4 aspirin 81 mg EC tablet Take 81 mg by mouth daily. nitroglycerin 0.[address] 0.4 mg under the tongue every 5 (five) minutes as needed for Chest pain. Not to exceed 3 doses No facility-administered medications prior to visit. Histories Past Medical History: Diagnosis Date CAD (coronary artery disease) COPD (chronic obstructive pulmonary disease) Esophageal reflux Hypertension STEMI (ST elevation myocardial infarction) 09/2017 Dr. Galdamez Thyroid disease Past Surgical History: Procedure Laterality Date [place] CSI ANY OTHER THAN PCI 2 YR STENT PLACEMENT (SHX) Social History Socioeconomic History Marital status: Spouse name: Not on file Number of children: Not on file Years of education: Not on file Highest education level: Not on file Occupational History Not on file Social Needs Financial resource strain: Not on file Food insecurity: Worry: Not on file Inability: Not on file Transportation needs: Medical: Not on file Non-medical: Not on file Tobacco Use Smoking status: Current Every Day Smoker Packs/day: 0.50 Years: 35.00 Pack years: 17.50 Types: Cigarettes Start date: 11/21/1979 Smokeless tobacco: Never Used Substance and Sexual Activity Alcohol use: Yes Comment: SOCIAL Drug use: Yes Types: Marijuana Comment: DAILY Sexual activity: Yes Partners: Female control/protection: Post-menopausal Lifestyle Physical activity: Days per week: Not on file Minutes per session: Not on file Stress: Not on file Relationships Social connections: Talks on phone: Not on file Gets together: Not on file Attends gnosticism service: Not on file Active member of club or organization: Not on file Attends meetings of clubs or organizations: Not on file Relationship status: Not on file Intimate partner violence: Fear of current or ex partner: Not on file Emotionally abused: Not on file Physically abused: Not on file Forced sexual activity: Not on file Other Topics Concern Not on file Social History Narrative Family History Problem Relation Age of Onset Hypertension Mother Diabetes Mother Hypertension Daughter Cancer Maternal Grandmother ? Review of Systems Constitutional: Positive for fatigue. HENT: Negative. Respiratory: Positive for cough and shortness of breath. Negative for wheezing. Cardiovascular: Negative. Musculoskeletal: Positive for back pain. Skin: Negative. Neurological: Positive for dizziness and weakness. Vital Signs BP 100/64 (BP Location: Left arm, Patient Position: Sitting) | Pulse 80 | Temp 36.1 C (97 F) (Oral) | Resp 18 | Ht 6' 1" (1.854 m) | Wt 189 lb 9.6 oz (86 kg) | BMI 25.01 kg/m Physical Exam Constitutional: He is oriented to person, place, and time. He appears well- developed and well-nourished. No distress. HENT: Right Ear: External ear normal. Left Ear: External ear normal. Mouth/Throat: Oropharynx is clear and moist. Neck: Normal range of motion. Cardiovascular: Normal rate, regular rhythm and normal heart sounds. Pulmonary/Chest: Effort normal and breath sounds normal. Musculoskeletal: Normal range of motion. Neurological: He is alert and oriented to person, place, and time. Skin: Skin is warm and dry. Psychiatric: He has a normal mood and affect. His behavior is normal. Judgment and thought content normal. Assessment/Plan 1. Intractable episodic cluster headache - yyngzhomyu-iizfoiwubkzxc-pifa 50-325-40 mg tablet; Take 1 tablet by mouth every 4 (four) hours as needed for Pain (scale 4-6). Dispense: 28 tablet; Refill: 0 Patient encouraged to quit smoking. Discussed headache triggers and ED warning for Stroke Appropriate plan of care, desired health behaviors, goals and medications discussed with patient andeducational resources and self-management tools provided, as applicable. Patient/family/guardian voice understanding. Barriers to adherence: none Ability to manage care: Good As necessary, prescribed medications and potential significant medication side effects or medicationinteractions were discussed with the patient and pt will let me know if any occur. Call or return to clinic prn if these symptoms worsen or fail to improve as anticipated. Call or report to ER if symptoms should symptoms progress or worsen. AVS reviewed and given to patient at conclusion of visit. The patient indicates understanding of these issues and agrees with the plan. Vilma [facility] Love Leslie LVN - 07/22/2019 8:30 AM Compa Matta is a 54 year old male Patient here today for headaches and prescription concern. Reports 4 pain on scale 0/10, MD notified. Reviewed medications and allergies with patient today. Fall Risk Assessment/Screening performed with patient today and patient is not at risk for falls. Lab work drawn per provider orders. Needle stick x (1) attempt to left hand. Tolerated well. No bruising, or complaint of discomfort noted to site. documented in this encounter Plan of Treatment Date Type Specialty Care Team Description 07/29/2019 Office Visit Pulmonary Disease Demario Hernandez DO [address] [place] [phone] 08/04/2019 Appointment Cardiac Sales Attendant Outanaya-Padmini Conner 08/06/2019 Office Visit Gastroenterology Karlo Farnsworth, PAEdinson [address] [place] [address] [phone] 11/08/2019 Office Visit Cardiology Soni Galdamez MD [address] [phone] Health Maintenance Due Date Last Done Comments DTaP,Tdap,and Td Vaccines (1 - 1977 Tdap) COLONOSCOPY 2016 Zoster Recombinant Vaccine 2016 (SHINGRIX) (1 of 2) PNEUMOCOCCAL 0-64 YEARS COMBINED 07/27/2019 Postponed from 1972 SERIES (1 of 1 - PPSV23) (Alternative Guidelines) INFLUENZA VACCINE (#1) 2020 Postponed from 02/07/2019 (Refused) documented as of this encounter Results Not on filedocumented in this encounter Visit Diagnoses Diagnosis Intractable episodic cluster headache - Primary Episodic cluster headache documented in this encounter Insurance Payer Benefit Plan / Subscriber ID Effective Phone Address Type Group Dates HARRY MCDONALD [id number] [phone] [facility] PRIMARY CARE PRIMARY CARE nt [address] [place] [address] documented as of this encounter
--- OUTSIDE RECORDS SUMMARY | 2019-07-26 14:36 | XMS REPORT | Summary of Care ---
:1965 Author Organization [facility] Address [address] [place] [id number] Care Team Providers Name Role Phone Vilma Connolly [facility] Primary Care Provider Reason for Referral (Routine) Status Reason Specialty Diagnoses / Procedures Referred By Referred To Contact Contact New Request Gastroenterology Diagnoses Encounter for screening colonoscopy Chest pain due to GERD Vilma Connolly, Procedures CONSULT/REFERRAL GASTROENTEROLOGY [address] [address] Reason for Visit Reason Comments Follow-up Post hospitalization (Routine) Status Reason Specialty Diagnoses / Referred By Referred To Procedures Contact Contact New Request Internal Medicine Diagnoses Chest pain, unspecified type Hernan Smith MD Ross, Nancy, Procedures Discharge Follow-up: PCP VILMA CONNOLLY; [address] [address] [place], [place] Phone: [phone] Phone: Encounter Details Date Type Department Care Team Description 06/24/2019 Office Visit [facility] Vilma Connolly [facility] [address] [place] [address] Encounter for screening colonoscopy (Primary Dx); [facility] Primary Chest pain due to GERD; Clinic Hypothyroidism (acquired) [address] [place] [address] Allergies No Known Allergiesdocumented as of this encounter (statuses as of 06/24/2019) Medications Medication Sig Dispensed Refills Start Date End Date Status aspirin 81 mg EC Take 81 mg 0 Active tabletIndications: by mouth Coronary artery daily. disease involving [place] coronary artery of [place] heart without angina pectoris, Essential hypertension nitroglycerin 0.[address] 0.4 mg 0 Active mg sublingual under the tabletIndications: tongue every Coronary artery 5 (five) disease involving minutes as [place] coronary needed for artery of [place] Chest pain. heart without Not to angina pectoris, exceed 3 Essential doses hypertension ibuprofen 600 mg Take 600 mg 0 Active tabletIndications: by mouth Coronary artery every 6 disease involving (six) hours [place] coronary as needed. artery of [place] heart without angina pectoris, Essential hypertension, Cigarette nicotine dependence without complication, Dyslipidemia, History of ST elevation myocardial infarction (STEMI), POPE (dyspnea on exertion), Fatigue, unspecified type budesonide-formoter Inhale 2 0 Active ol (SYMBICORT) Puffs 2 160-4.5 (two) times mcg/actuation daily. inhaler levalbuterol 45 Inhale 1-2 0 Active mcg/actuation Puffs 3 inhaler (three) times daily as needed for Wheezing. carvedilol 6.25 mg Take 1 30 tablet 5 06/10/2019 Active tabletIndications: tablet by Coronary artery mouth 2 disease involving (two) times [place] coronary daily with artery of [place] meals. heart without angina pectoris atorvastatin 80 mg Take 1 30 tablet 5 06/10/2019 Active tabletIndications: tablet by Coronary artery mouth at disease involving bedtime. [place] coronary artery of [place] heart without angina pectoris lisinopril 10 mg Take 1 30 tablet 4 06/10/2019 Active tabletIndications: tablet by Essential mouth daily. hypertension, Coronary artery disease involving [place] coronary artery of [place] heart without angina pectoris clopidogrel 75 mg Take 1 30 tablet 5 06/10/2019 Active tabletIndications: tablet by Coronary artery mouth daily. disease involving [place] coronary artery of [place] heart without angina pectoris isosorbide TAKE 1 30 tablet 2 06/18/2019 Active mononitrate 30 mg TABLET BY 24 hr MOUTH ONCE tabletIndications: DAILY Coronary artery disease involving [place] coronary artery of [place] heart without angina pectoris levothyroxine 50 Take 1 30 tablet 0 06/19/2019 Active mcg tablet by 0 tabletIndications: mouth every Hypothyroidism, morning for unspecified type 30 days. benzonatate 100 mg Take 100 mg 0 Discontinued capsule by mouth 3 0 (Therapy (three) completed) times daily as needed for Cough. Mometasone-Formoter Inhale 2 0 Discontinued ol (DULERA) 100-5 (two) times 0 (Therapy mcg/actuation daily. completed) inhaler documented as of this encounter (statuses as of 06/24/2019) Active Problems Problem Noted Date Chest pain 06/18/2019 Coronary artery disease involving [place] heart 11/20/2017 Essential hypertension 11/20/2017 Tobacco abuse 11/20/2017 documented as of this encounter (statuses as of 06/24/2019) Social History Tobacco Use Types Packs/Day Years [...] Sign Reading Time Taken Comments Blood Pressure 105/69 06/24/2019 8:36 AM FURNITURE MOVER HELPER Pulse 87 06/24/2019 8:36 AM FURNITURE MOVER HELPER Temperature 36.1 C (97 F) 06/24/2019 8:36 AM FURNITURE MOVER HELPER Respiratory Rate 20 06/24/2019 8:36 AM FURNITURE MOVER HELPER Oxygen Saturation 98% 06/24/2019 8:36 AM FURNITURE MOVER HELPER Inhaled Oxygen Concentration - - Weight 86 kg (189 lb 9.6 oz) 06/24/2019 8:36 AM FURNITURE MOVER HELPER Height 182.9 cm (6') 06/24/2019 8:36 AM FURNITURE MOVER HELPER Body Mass Index 25.71 06/24/2019 8:36 AM FURNITURE MOVER HELPER documented in this encounter Progress Notes Vilma Connolly FNP - 06/24/2019 8:30 AM CST Cc: Chief Complaint Patient presents with Follow-up Post hospitalization HPI Garcia Matta is a 54 year old male admitted for chest pain at the [facility] on 06/18/19 for observation. EKG and troponins were unremarkable. TSH was elevated at 7.34. Free T4 was 0.76. TSH on01/15/18 was 3.56. Pt started on Levothyroxine 50meq a day. We had just taken [facility] labs a few days before and would be reviewing during clinic today. That TSH was also elevated at 4.85 so we would have been having the same discussion with patient today. Pt complains of chronic fatigue and unable to work for any length of time without becoming light headed and extremity tired. Has increased weight by 30 lbs in last 2 yrs. Pt admits to sx of backwash and intermittent heartburn. Has not had a screening colonoscopy so I will refer to GI for possible EGD/colonoscopy Has pulmonary and cards referral already in place. Will see if we can move it up Allergies Garcia has No Known Allergies. Medications Outpatient Medications Prior to Visit Medication Sig Dispense Refill levothyroxine 50 mcg tablet Take 1 tablet by mouth every morning for 30 days. 30 tablet 0 isosorbide mononitrate 30 mg 24 hr tablet TAKE 1 TABLET BY MOUTH ONCE DAILY 30 tablet 2 atorvastatin 80 mg tablet Take 1 tablet by mouth at bedtime. 30 tablet 5 carvedilol 6.25 mg tablet Take 1 tablet by mouth 2 (two) times daily with meals. 30 tablet 5 clopidogrel 75 mg tablet Take 1 tablet by mouth daily. 30 tablet 5 lisinopril 10 mg tablet Take 1 tablet by mouth daily. 30 tablet 4 budesonide-formoterol (SYMBICORT) 160-4.5 mcg/actuation inhaler Inhale 2 Puffs 2 (two) times daily. levalbuterol 45 mcg/actuation inhaler Inhale 1-2 Puffs 3 (three) times daily as needed for Wheezing. benzonatate 100 mg capsule Take 100 mg by mouth 3 (three) times daily as needed for Cough. Mometasone-Formoterol (DULERA) 100-5 mcg/actuation inhaler Inhale 2 (two) times daily. ibuprofen 600 mg tablet Take 600 mg by mouth every 6 (six) hours as needed. aspirin 81 mg EC tablet Take 81 [...] disease Past Surgical History: Procedure Laterality Date [place] CSI ANY OTHER THAN PCI 2 YR STENT PLACEMENT (SHX) Social History Socioeconomic History Marital status: Single Spouse name: Not on file Number of [...] file Gets together: Not on file Attends restorationist service: Not on file Active member of [...] ? Review of Systems Constitutional: Positive for activity change, fatigue and weight gain. HENT: Positive for voice change. Respiratory: Positive for cough and shortness of breath. Cardiovascular: Positive for chest pain and palpitations. Musculoskeletal: Positive for back pain. Skin: Negative. Neurological: Positive for dizziness and weakness. Hematological: Positive for cold intolerance and heat intolerance. Endocrine: Positive for cold intolerance, heat intolerance and weight gain. Vital Signs BP 105/69 (BP Location: Left arm, Patient Position: Sitting) | Pulse 87 | Temp 36.1 C (97 F) (Oral) | Resp 20 | Ht 6' (1.829 m) | Wt 189 lb 9.6 oz (86 kg) | SpO2 98% | BMI 25.71 kg/m Physical Exam Assessment/Plan 1. Encounter for screening colonoscopy 2. Chest pain due to GERD Pt admits to sx of backwash and intermittent heartburn. Has not had a screening colonoscopy so I will refer to GI for possible EGD/colonoscopy Has pulmonary and cards referral already in place. Will see if we can move it up - CONSULT/REFERRAL GASTROENTEROLOGY 3. Acquired Hypothyroidism Continue levothyroxine 50meg daily for then see back in labs in 2 wk for TSH, T4 free, T3. Discussed taking the medication on an empty stomach with a full glass of water for maximum absorption Appropriate plan of care, desired health behaviors, [...] issues and agrees with the plan. [facility] Love Leslie LVN - 06/24/2019 8:30 AM CSTVinoddeborah Matta is a 54 year old male Patient here today for post hospitalization follow up. Reports 0 pain on scale 0 /10, MD notified. Reviewed medications and allergies with patient today. Fall Risk Assessment/Screening performed with patient today and patient is not at risk for falls. documented in this encounter Plan of Treatment Date Type Specialty Care Team Description 07/08/2019 Office Visit Family Medicine Vilma Connolly FNP [address] [place] [address] [phone] Bakari Harry 07/29/2019 Office Visit Pulmonary Disease Demario Hernandez DO [address] [place] [address] 07/29/2019 Office Visit Cardiology Soni Galdamez MD [address] [place] [address] [place] [phone] Health Maintenance Due Date Last Done Comments PNEUMOCOCCAL 0-64 YEARS COMBINED SERIES (1 of 1 - 1972 PPSV23) DTaP,Tdap,and Td Vaccines (1 - Tdap) 1977 COLONOSCOPY 2016 Zoster Recombinant Vaccine (SHINGRIX) (1 of 2) 2016 INFLUENZA VACCINE (#1) 2019 documented as of this encounter Results Not on filedocumented in this encounter Visit Diagnoses Diagnosis Encounter for screening colonoscopy - Primary Special screening for malignant neoplasms, colon Chest pain due to GERD Hypothyroidism (acquired) Unspecified hypothyroidism documented in this encounter Insurance Payer Benefit Plan / Subscriber ID Effective Phone Address Type Group Dates HARRY MCDONALD [id number] [phone] [facility] PRIMARY CARE PRIMARY CARE [address] [place] [address] documented as of this encounter"
--- OUTSIDE RECORDS SUMMARY | 2019-07-26 14:36 | XMS REPORT | Summary of Care ---
:1965 Author Organization [facility] Address [address] [place] [id number] Care Team Providers Name Role Phone Vilma Connolly [facility] Primary Care Provider Reason for Referral (Routine) Status Reason Specialty Diagnoses / Procedures Referred By Referred To Contact Contact New Request Gastroenterology Diagnoses Encounter for screening colonoscopy Chest pain due to GERD Vilma Connolly, Procedures CONSULT/REFERRAL GASTROENTEROLOGY [address] [address] Reason for Visit Reason Comments Follow-up Post hospitalization (Routine) Status Reason Specialty Diagnoses / Referred By Referred To Procedures Contact Contact New Request Internal Medicine Diagnoses Chest pain, unspecified type Hernan Smith MD Ross, Nancy, Procedures Discharge Follow-up: PCP VILMA CONNOLLY; [address] [address] [place], [place] Phone: [phone] Phone: Encounter Details Date Type Department Care Team Description 06/24/2019 Office Visit [facility] Vilma Connolly [facility] [address] [place] [address] Encounter for screening colonoscopy (Primary Dx); [facility] Primary Chest pain due to GERD; Clinic Hypothyroidism (acquired) [address] [place] [address] Allergies No Known Allergiesdocumented as of this encounter (statuses as of 06/24/2019) Medications Medication Sig Dispensed Refills Start Date End Date Status aspirin 81 mg EC Take 81 mg 0 Active tabletIndications: by mouth Coronary artery daily. disease involving [place] coronary artery of [place] heart without angina pectoris, Essential hypertension nitroglycerin 0.[address] Place 0.4 mg 0 Active mg sublingual under the tabletIndications: tongue every Coronary artery 5 (five) disease involving minutes as [place] coronary needed for artery of [place] Chest pain. heart without Not to angina pectoris, exceed 3 Essential doses hypertension ibuprofen 600 mg Take 600 mg 0 Active tabletIndications: by mouth Coronary artery every 6 disease involving (six) hours [place] coronary as needed. artery of [place] heart without angina pectoris, Essential hypertension, Cigarette [...] artery mouth 2 disease involving (two) times [place] coronary daily with artery of [place] meals. heart without angina pectoris atorvastatin 80 mg Take 1 30 tablet 5 06/10/2019 Active tabletIndications: tablet by Coronary artery mouth at disease involving bedtime. [place] coronary artery of [place] heart without angina pectoris lisinopril 10 mg Take 1 30 tablet 4 06/10/2019 Active tabletIndications: tablet by Essential mouth daily. hypertension, Coronary artery disease involving [place] coronary artery of [place] heart without angina pectoris clopidogrel 75 mg Take 1 30 tablet 5 06/10/2019 Active tabletIndications: tablet by Coronary artery mouth daily. disease involving [place] coronary artery of [place] heart without angina pectoris isosorbide TAKE 1 30 tablet 2 06/18/2019 Active mononitrate 30 mg TABLET BY 24 hr MOUTH ONCE tabletIndications: DAILY Coronary artery disease involving [place] coronary artery of [place] heart without angina pectoris levothyroxine 50 Take [...] Chest pain 06/18/2019 Coronary artery disease involving [place] heart 11/20/2017 Essential hypertension 11/20/2017 Tobacco abuse [...] Comments Blood Pressure 105/69 06/24/2019 8:36 AM SYSTEMS TESTER Pulse 87 06/24/2019 8:36 AM SYSTEMS TESTER Temperature 36.1 C (97 F) 06/24/2019 8:36 AM SYSTEMS TESTER Respiratory Rate 20 06/24/2019 8:36 AM SYSTEMS TESTER Oxygen Saturation 98% 06/24/2019 8:36 AM SYSTEMS TESTER Inhaled Oxygen Concentration - - Weight 86 kg (189 lb 9.6 oz) 06/24/2019 8:36 AM SYSTEMS TESTER Height 182.9 cm (6') 06/24/2019 8:36 AM SYSTEMS TESTER Body Mass Index 25.71 06/24/2019 8:36 AM SYSTEMS TESTER documented in this encounter Progress Notes Vilma Connolly FNP - 06/24/2019 8:30 AM CST Cc: Chief Complaint Patient presents with Follow-up Post hospitalization HPI Garcia Matta is a 54 year old male admitted for chest pain at the [facility] on 06/18/19 for observation. EKG and troponins [...] disease Past Surgical History: Procedure Laterality Date ND CSI ANY OTHER THAN PCI 2 YR [...] file Gets together: Not on file Attends denominational service: Not on file Active member of [...] the plan. [facility] Love Leslie LVN - 06/24/2019 8:30 AM [...] Family Medicine Vilma Connolly FNP [address] [place] [address] [phone] Bakari Harry 07/29/2019 Office Visit Pulmonary Disease Demario Hernandez DO [address] [place] [address] 07/29/2019 Office Visit Cardiology Soni Galdamez MD [address] [place] [address] [place] [phone] Health Maintenance Due Date Last Done [...] Phone Address Type Group Dates HARRY MCDONALD [id number] 2017-Dany [phone] [facility] PRIMARY CARE nt [address] [place] [address] documented as of this encounter"
--- OUTSIDE RECORDS SUMMARY | 2019-07-26 14:36 | XMS REPORT | Summary of Care ---
:1965 Author Organization [facility] Address [address] [place] [address] Care Team Providers Name Role Phone Vilma Morris GUERRERO Primary Care Provider Reason for Visit Reason Comments Headache Right temporal area Rx Concern/Question Encounter Details Date Type Department Care Team Description 07/22/2019 Office Visit [facility] Linda MorrisGUERRERO casiano [address] [place] [address] Intractable episodic [facility] Primary cluster headache Clinic (Primary Dx) [address] [place] [address] Allergies No Known Allergiesdocumented as of this encounter (statuses as of 07/22/2019) Medications Medication Sig Dispensed Refills Start Date End Date Status aspirin 81 mg EC Take 81 mg by 0 Active tabletIndications: mouth daily. Coronary artery disease involving [place] coronary artery of [place] heart without angina pectoris, Essential hypertension nitroglycerin 0.[address] 0.4 mg 0 Active sublingual under the tongue tabletIndications: every 5 (five) Coronary artery disease minutes as involving [place] needed for Chest coronary artery of pain. Not to [place] heart without exceed 3 doses angina pectoris, Essential hypertension budesonide-formoterol Inhale 2 Puffs 2 0 Active (SYMBICORT) 160-4.5 (two) times mcg/actuation inhaler daily. levalbuterol 45 Inhale 1-2 Puffs 0 Active mcg/actuation inhaler 3 (three) times daily as needed for Wheezing. atorvastatin 80 mg Take 1 tablet by 30 tablet 5 06/10/2019 Active tabletIndications: mouth at Coronary artery disease bedtime. involving [place] coronary artery of [place] heart without angina pectoris lisinopril 10 mg Take 1 tablet by 30 tablet 4 06/10/2019 Active tabletIndications: mouth daily. Essential hypertension, Coronary artery disease involving [place] coronary artery of [place] heart without angina pectoris clopidogrel 75 mg Take 1 tablet by 30 tablet 5 06/10/2019 Active tabletIndications: mouth daily. Coronary artery disease involving [place] coronary artery of [place] heart without angina pectoris isosorbide mononitrate TAKE 1 TABLET BY 30 tablet 2 06/18/2019 Active 30 mg 24 hr MOUTH ONCE DAILY tabletIndications: Coronary artery disease involving [place] coronary artery of [place] heart without angina pectoris carvediloL 12.5 mg Take 1 tablet by 180 tablet 4 07/09/2019 Active tabletIndications: mouth 2 (two) Coronary artery disease times daily with involving [place] meals. coronary artery of [place] heart with angina pectoris levothyroxine 75 mcg [...] Chest pain 06/18/2019 Coronary artery disease involving [place] heart 11/20/2017 Essential hypertension 11/20/2017 Tobacco abuse [...] Comments Blood Pressure 100/64 07/22/2019 8:38 AM ELECTRICAL INSPECTOR Pulse 80 07/22/2019 8:38 AM ELECTRICAL INSPECTOR Temperature 36.1 C (97 F) 07/22/2019 8:38 AM ELECTRICAL INSPECTOR Respiratory Rate 18 07/22/2019 8:38 AM ELECTRICAL INSPECTOR Oxygen Saturation - - Inhaled Oxygen Concentration - - Weight 86 kg (189 lb 9.6 oz) 07/22/2019 8:38 AM ELECTRICAL INSPECTOR Height 185.4 cm (6' 1") 07/22/2019 8:38 AM ELECTRICAL INSPECTOR Body Mass Index 25.01 07/22/2019 8:38 AM ELECTRICAL INSPECTOR documented in this encounter Progress Notes Vilma [...] disease Past Surgical History: Procedure Laterality Date [place] CSI ANY OTHER THAN PCI 2 YR [...] file Gets together: Not on file Attends yazdanism service: Not on file Active member of [...] Assessment/Plan 1. Intractable episodic cluster headache - ytjstyholg-hpfoqrpwgfgcl-jrcj 50-325-40 mg tablet; Take 1 tablet by [...] issues and agrees with the plan. Vilma [facility] Love Leslie LVN - 07/22/2019 [...] Visit Pulmonary Disease Demario Hernandez DO [address] [place] [phone] 08/04/2019 Appointment Cardiac Cathode Builder Outanaya-Padmini Conner 08/06/2019 Office Visit Gastroenterology Karlo Farnsworth, PAEdinson [address] [place] [address] [phone] 11/08/2019 Office Visit Cardiology Soni Galdamez MD [address] [phone] Health Maintenance Due Date Last Done Comments [...] Phone Address Type Group Dates HARRY MCDONALD [id number] 2017Lamar [phone] [facility] PRIMARY CARE PRIMARY CARE nt [address] [place] [address] documented as of this encounter
--- OUTSIDE RECORDS SUMMARY | 2019-07-26 14:36 | XMS REPORT | Summary of Care ---
:1965 Author Organization [facility] [[email or web address]] - [facility] Address [address] [place] [address] Care Team Providers Name Role Phone Vilma Morris GUERRERO Primary Care Provider Encounter Details Date Type Department Care Team Description 07/07/2019 Orders Only [facility] [[email or web address] Doctor Unassigned, No [address] [facility] [place] [address] [address] [place] [address] Allergies No Known Allergiesdocumented as of this encounter (statuses as of 07/07/2019) Medications Medication Sig Dispensed Refills Start Date End Date Status aspirin 81 mg EC Take 81 mg by 0 Active tabletIndications: mouth daily. Coronary artery disease involving [place] coronary artery of [place] heart without angina pectoris, Essential hypertension nitroglycerin 0.[address] 0.4 mg 0 Active sublingual under the tongue tabletIndications: every 5 (five) Coronary artery minutes as disease involving needed for Chest [place] coronary artery pain. Not to of [place] heart exceed 3 doses without angina pectoris, Essential hypertension ibuprofen 600 mg Take 600 mg by 0 Active tabletIndications: mouth every 6 Coronary artery (six) hours as disease involving needed. [place] coronary artery of [place] heart without angina pectoris, Essential hypertension, Cigarette nicotine dependence without complication, Dyslipidemia, History of ST elevation myocardial infarction (STEMI), POPE (dyspnea on exertion), Fatigue, unspecified type budesonide-formoterol Inhale 2 Puffs 2 0 Active (SYMBICORT) 160-4.5 (two) times mcg/actuation inhaler daily. levalbuterol 45 Inhale 1-2 Puffs 0 Active mcg/actuation inhaler 3 (three) times daily as needed for Wheezing. carvedilol 6.25 mg Take 1 tablet by 30 tablet 5 06/10/2019 Active tabletIndications: mouth 2 (two) Coronary artery times daily with disease involving meals. [place] coronary artery of [place] heart without angina pectoris atorvastatin 80 mg Take 1 tablet by 30 tablet 5 06/10/2019 Active tabletIndications: mouth at Coronary artery bedtime. disease involving [place] coronary artery of [place] heart without angina pectoris lisinopril 10 mg Take 1 tablet by 30 tablet 4 06/10/2019 Active tabletIndications: mouth daily. Essential hypertension, Coronary artery disease involving [place] coronary artery of [place] heart without angina pectoris clopidogrel 75 mg Take 1 tablet by 30 tablet 5 06/10/2019 Active tabletIndications: mouth daily. Coronary artery disease involving [place] coronary artery of [place] heart without angina pectoris isosorbide mononitrate TAKE 1 TABLET BY 30 tablet 2 06/18/2019 Active 30 mg 24 hr MOUTH ONCE DAILY tabletIndications: Coronary artery disease involving [place] coronary artery of [place] heart without angina pectoris levothyroxine 50 mcg Take 1 tablet by 30 tablet 0 06/19/2019 07/19/2019 Active tabletIndications: mouth every Hypothyroidism, morning for 30 unspecified type days. documented as of this encounter (statuses as of 07/07/2019) Active Problems Problem Noted Date Chest pain 06/18/2019 Coronary artery disease involving [place] heart 11/20/2017 Essential hypertension 11/20/2017 Tobacco abuse 11/20/2017 documented as of this encounter (statuses as of 07/07/2019) Social History Tobacco Use Types Packs/Day Years [...] filedocumented in this encounter Plan of Treatment Date Type Specialty Care Team Description 07/08/2019 Office Visit Family Medicine Vilma Morris, [employer]ER [address] [place] [address] [phone] Care, [facility] Primary 07/09/2019 Office Visit Cardiology Soni Galdamez MD [address] [place] [address] [place] [phone] 07/29/2019 Office Visit Pulmonary Disease Demario Hernandez DO [address] [place] [address] [phone] 08/06/2019 Office Visit Gastroenterology Karlo Farnsworth, S[facility]NY[facility] [address] [place] [address] [phone] Health Maintenance Due Date Last Done Comments PNEUMOCOCCAL 0-64 YEARS COMBINED SERIES (1 of 1 - 1972 PPSV23) DTaP,Tdap,and Td Vaccines (1 - Tdap) 1977 COLONOSCOPY 2016 Zoster Recombinant Vaccine (SHINGRIX) (1 of 2) 2016 INFLUENZA VACCINE (#1) 2019 documented as of this encounter Procedures Procedure Name Priority Date/Time Associated Diagnosis Comments EXTERNAL PROVIDER Routine 07/07/2019 12:01 AM ANGIOGRAPHER RECORDS documented in this encounter Results Not on filedocumented in this encounter Insurance Payer Benefit Plan Subscriber ID Effective Phone Address Type / Group Dates HARRY MCDONALD [id number] 2017-[place] [phone] [id number] PRIMARY CARE PRIMARY CARE nt [address] [place] [address] [place] [id number] [address] [address] [address] [facility] [address] [facility] [place] [address] documented as of this encounter
--- OUTSIDE RECORDS SUMMARY | 2019-07-26 14:36 | XMS REPORT ---
:1965 [facility] [address] [place] [address] Care Team Providers Name Role Phone PRADEEP STEEL Unavailable Unavailable Problems This patient has no known problems. Allergies, Adverse Reactions, Alerts This patient has no known allergies or adverse reactions. Medications This patient has no known medications. Results Test Description Test Time Test Comments Text Results Atomic Results Result Comments BLOOD CULTURE 2017-10-02 12:00:00 Test Item Value Reference Range Comments CULTURE (BEAKER) (test qmhn=5504) No growth in 5 days BLOOD [id number] 12:00:00 Test Item Value Reference Range Comments CULTURE (BEAKER) (test ehsw=0170) No growth in 5 days [id number] 07:30:00 Test Item Value Reference Range Comments MAGNESIUM (BEAKER) (test hbhl=731) 1.9 mg/dL 1.6-2.6 BASIC METABOLIC [id number] 07:30:00 Test Item Value Reference Range Comments SODIUM (BEAKER) (test 137 meq/L 136-145 vfhj=597) POTASSIUM (BEAKER) (test 4.0 meq/L 3.5-5.1 rtij=549) CHLORIDE (BEAKER) (test 108 meq/L 98-107 chpz=205) CO2 (BEAKER) (test 21 meq/L 22-29 bcvk=168) BLOOD UREA NITROGEN 12 mg/dL 7-21 (BEAKER) (test klqq=977) CREATININE (BEAKER) (test 0.69 mg/dL 0.57-1.25 cndw=303) GLUCOSE RANDOM (BEAKER) 93 mg/dL 70-105 (test pmvc=910) CALCIUM (BEAKER) (test 9.4 mg/dL 8.4-10.2 saoi=634) EGFR (BEAKER) (test 121 mL/min/1.73 sq m ESTIMATED GFR IS NOT tuxx=4395) ACCURATE CREATININE CLEARANCE IN PREDICTING GLOMERULAR FILTRATION RATE. ESTIMATED GFR IS NOT APPLICABLE FOR DIALYSIS PATIENTS. CBC (HEMOGRAM ONLY)2017-09-28 07:02:00 Test Item Value Reference Range Comments WHITE BLOOD CELL COUNT (BEAKER) (test uilh=774) 11.9 K/ L 3.5-10.5 RED BLOOD CELL COUNT (BEAKER) (test jlwj=875) 5.10 M/ L 4.63-6.08 HEMOGLOBIN (BEAKER) (test ouxo=624) 15.1 GM/DL 13.7-17.5 HEMATOCRIT (BEAKER) (test grlv=845) 47.4 % 40.1-51.0 MEAN CORPUSCULAR VOLUME (BEAKER) (test mcrp=179) 92.9 fL 79.0-92.2 MEAN CORPUSCULAR HEMOGLOBIN (BEAKER) (test 29.6 pg 25.7-32.2 nepr=906) MEAN CORPUSCULAR HEMOGLOBIN CONC (BEAKER) (test 31.9 GM/DL 32.3-36.5 dmey=212) RED CELL DISTRIBUTION WIDTH (BEAKER) (test 12.6 % 11.6-14.4 ptmk=812) PLATELET COUNT (BEAKER) (test virf=042) 178 K/CU MM 150-450 MEAN PLATELET VOLUME (BEAKER) (test bemu=773) 11.8 fL 9.4-12.4 NUCLEATED RED BLOOD CELLS (BEAKER) (test 0 /100 WBC 0-0 ptva=756) TROPONIN [id number] 22:02:00 Test Item Value Reference Range Comments TROPONIN I (BEAKER) (test vixz=894) 63.70 ng/mL 0.00-0.03 Troponin I (TnI) levels [...] neurological disease, and persistent tachyarrhythmia.TSH/FREE T4 IF [id number] 16:05 :00 Test Item Value Reference Range Comments THYROID STIMULATING HORMONE (BEAKER) (test 1.30 uIU/mL 0.35-4.94 ilvw=371) Draw next time labs are dueTROPONIN [id number] 14:46:00 Test Item Value Reference Range Comments TROPONIN I (BEAKER) (test qofm=509) 100.07 ng/mL 0.00-0.03 Troponin I (TnI) levels [...] acidosis, acute neurological disease, and persistent tachyarrhythmia.HEMOGLOBIN [id number] 12:38:00 Test Item Value Reference Range Comments HEMOGLOBIN A1C (BEAKER) (test mkme=071) 5.2 % 4.3-6.1 RAPID DRUG SCREEN, [id number] 10:53:00 Test Item Value Reference Range Comments BARBITURATE URINE (BEAKER) (test jumh=024) Negative Negative BENZODIAZEPINE SCREEN URINE (BEAKER) (test Positive Negative axqa=020) COCAINE (METAB.) SCREEN (BEAKER) (test zthl=2067) Negative Negative METHADONE SCREEN (BEAKER) (test uexr=3402) Negative Negative OPIATE SCREEN URINE (BEAKER) (test jmgx=950) Positive Negative CANNABINOID SCREEN URINE (BEAKER) (test wzvq=450) Negative Negative AMPH/METHAMPH SCREEN (BEAKER) (test skfj=0109) Negative Negative PHENCYCLIDINE SCREEN URINE (BEAKER) (test asgy=717) Negative Negative OXYCODONE SCREEN URINE (BEAKER) (test izay=7720) Negative Negative DRUG CUTOFF CONC.Cocaine 300 ng/mL Cannabinoid 50 ng/mL Benzodiazepine 200 ng/mLBarbiturate 200 ng/ mLPhencyclidine 25 ng/mLOpiate 300 ng/mLMethadone 300 ng/mLAmphetamine/ 1000 ng/mL MethamphetamineOxycodone 300 ng/mLThis assay provides an unconfirmed qualitative test result for the clinical management of patients in emergency situations. Chain of custody not maintained. Some nbxx-xnp-jtaivxt medications, as well as adulterants, may cause inaccurate results. Clinical correlation should be applied. A more comprehensive drug screen or confirmation of a detected drug may be performed upon request.LIPID [id number] 09:21:00 Test Item Value Reference Range Comments TRIGLYCERIDES (BEAKER) (test ydrd=256) 128 mg/dL CHOLESTEROL (BEAKER) (test wdav=202) 181 mg/dL HDL CHOLESTEROL (BEAKER) (test ejiw=292) 32 mg/dL LDL CHOLESTEROL CALCULATED (BEAKER) (test 123 mg/dL wtbz=941) Triglyceride Reference Range: Low Risk <150 Borderline 150- 199 High Risk 200-499 Very High Risk >=500Cholesterol Reference Range: Low Risk <200 Borderline 200-239 High Risk > 240HDL Cholesterol Reference Range: Low Risk >=60 High Risk <40LDL Cholesterol Reference Range: Optimal <100 Near Optimal 100-129 Borderline 130-159 High 160-189 Very High >=190TROPONIN [id number] 07:55:00 Test Item Value Reference Range Comments TROPONIN I (BEAKER) (test hdct=840) 72.42 ng/mL 0.00-0.03 Troponin I (TnI) levels [...] failure, acidosis, acute neurological disease, and persistent tachyarrhythmia.[id number] 06:39:00 Test Item Value Reference Range Comments PROTIME (BEAKER) (test zvci=451) 13.2 seconds 11.7-14.7 INR (BEAKER) (test uons=402) 1.0 <=5.9 PARTIAL THROMBOPLASTIN TIME (BEAKER) (test 29.7 seconds 22.5-36.0 ptaf=489) RECOMMENDED COUMADIN/WARFARIN INR THERAPY RANGESSTANDARD DOSE: 2.0 - 3.0 Includes: PROPHYLAXIS forvenous thrombosis, systemic embolization; TREATMENT for venous thrombosis and/or pulmonary embolus.HIGH RISK: Target INR is 2.5-3.5 for patients with mechanical heart valves.URINALYSIS W/ [id number] 06 :31:00 Test Item Value Reference Range Comments COLOR (BEAKER) (test tyvi=999) Yellow CLARITY (BEAKER) (test fdoy=958) Clear SPECIFIC GRAVITY UA (BEAKER) (test > 1.001-1.035 nool=049) PH UA (BEAKER) (test ioms=902) 6.5 5.0-8.0 PROTEIN UA (BEAKER) (test axnv=137) 10 mg/dL Negative GLUCOSE UA (BEAKER) (test xvku=292) Negative Negative KETONES UA (BEAKER) (test mzlp=147) 20 mg/dL Negative BILIRUBIN UA (BEAKER) (test Negative Negative eujm=627) BLOOD UA (BEAKER) (test zwnw=279) Negative Negative NITRITE UA (BEAKER) (test qriu=106) Negative Negative LEUKOCYTE ESTERASE UA (BEAKER) Negative Negative (test rgsb=271) UROBILINOGEN UA (BEAKER) (test 0.2 mg/dL 0.2-1.0 ztoq=289) RBC UA (BEAKER) (test bqnw=402) 1 /HPF WBC UA (BEAKER) (test iugh=554) 1 /HPF MUCUS (BEAKER) (test lnrh=0674) Rare SOURCE(BEAKER) (test mlfa=6909) Urine, Straight Catheter BASIC METABOLIC [id number] 06:09:00 Test Item Value Reference Range Comments SODIUM (BEAKER) (test 136 meq/L 136-145 uqub=354) POTASSIUM (BEAKER) (test 4.2 meq/L 3.5-5.1 zjuz=368) CHLORIDE (BEAKER) (test 105 meq/L 98-107 pbsi=569) CO2 (BEAKER) (test 23 meq/L 22-29 tsgw=973) BLOOD UREA NITROGEN 10 mg/dL 7-21 (BEAKER) (test dzii=152) CREATININE (BEAKER) (test 0.74 mg/dL 0.57-1.25 jccp=201) GLUCOSE RANDOM (BEAKER) 120 mg/dL 70-105 (test retk=555) CALCIUM (BEAKER) (test 8.8 mg/dL 8.4-10.2 wvwz=728) EGFR (BEAKER) (test 112 mL/min/1.73 sq m ESTIMATED GFR IS NOT fgsx=5409) ACCURATE CREATININE CLEARANCE IN PREDICTING GLOMERULAR FILTRATION RATE. ESTIMATED GFR IS NOT APPLICABLE FOR DIALYSIS PATIENTS. CBC W/PLT COUNT & AUTO [id number] 05:57:00 Test Item Value Reference Range Comments WHITE BLOOD CELL COUNT (BEAKER) (test sorw=675) 15.3 K/ L 3.5-10.5 RED BLOOD CELL COUNT (BEAKER) (test werc=272) 4.56 M/ L 4.63-6.08 HEMOGLOBIN (BEAKER) (test urlq=435) 13.8 GM/DL 13.7-17.5 HEMATOCRIT (BEAKER) (test uuoy=860) 42.8 % 40.1-51.0 MEAN CORPUSCULAR VOLUME (BEAKER) (test mowc=834) 93.9 fL 79.0-92.2 MEAN CORPUSCULAR HEMOGLOBIN (BEAKER) (test 30.3 pg 25.7-32.2 udhq=688) MEAN CORPUSCULAR HEMOGLOBIN CONC (BEAKER) (test 32.2 GM/DL 32.3-36.5 esnr=067) RED CELL DISTRIBUTION WIDTH (BEAKER) (test 12.8 % 11.6-14.4 zfmm=255) PLATELET COUNT (BEAKER) (test jhya=181) 181 K/CU MM 150-450 MEAN PLATELET VOLUME (BEAKER) (test ggyn=010) 11.5 fL 9.4-12.4 NUCLEATED RED BLOOD CELLS (BEAKER) (test 0 /100 WBC 0-0 hnuo=240) NEUTROPHILS RELATIVE PERCENT (BEAKER) (test 75 % oymi=794) LYMPHOCYTES RELATIVE PERCENT (BEAKER) (test 12 % lglu=239) MONOCYTES RELATIVE PERCENT (BEAKER) (test 11 % xgdy=377) EOSINOPHILS RELATIVE PERCENT (BEAKER) (test 1 % uscd=731) BASOPHILS RELATIVE PERCENT (BEAKER) (test 0 % clca=646) NEUTROPHILS ABSOLUTE COUNT (BEAKER) (test 11.48 K/ L 1.78-5.38 myjm=093) LYMPHOCYTES ABSOLUTE COUNT (BEAKER) (test 1.88 K/ L 1.32-3.57 cygs=206) MONOCYTES ABSOLUTE COUNT (BEAKER) (test 1.73 K/ L 0.30-0.82 cncx=187) EOSINOPHILS ABSOLUTE COUNT (BEAKER) (test 0.12 K/ L 0.04-0.54 rpfw=313) BASOPHILS ABSOLUTE COUNT (BEAKER) (test 0.04 K/ L 0.01-0.08 tjth=037) IMMATURE GRANULOCYTES-RELATIVE PERCENT ([facility]) 1 % 0-1 (test nevh=3518) [id number] 01:38:00 Test Item Value Reference Range Comments ACTIVATED CLOTTING TIME 131 sec TESTED AT [facility] [address] [facility] ([place]) (test kxso=798) [place] [id number] 01:38:00 Test Item Value Reference Range Comments ACTIVATED CLOTTING TIME 147 sec TESTED AT [facility] [address] [facility] (BEAKER) (test urcf=910) [facility] [address] RAD, CHEST, 1 VIEW, NON [id number] 23:46:00Reason for exam:->STEMIShould this be performed at the bedside?->YesFINAL REPORT History: TN. Comparison: None. Findings: A single view of [...] MDReport Verified Date/Time: 09/26/2017 23:46:29 Reading Location: [address] Reading Room TROPONIN [id number] 22:47:00 Test Item Value Reference Range Comments TROPONIN I (RUBIA) (test fljb=135) 56.52 ng/mL 0.00-0.03 Troponin I (TnI) levels [...] failure, acidosis, acute neurological disease, and persistent tachyarrhythmia.[id number] 22:39:00 Test Item Value Reference Range Comments PARTIAL THROMBOPLASTIN TIME (RUBIA) (test > seconds 22.5-36.0 vxax=106) B-TYPE NATRIURETIC FACTOR (BNP)2017-09-26 22:27:00 Test Item Value Reference Range Comments B-TYPE NATRIURETIC PEPTIDE (BEAKER) (test gyxl=544) 71 pg/mL 0-100 [id number] 22:20:00 Test Item Value Reference Range Comments MAGNESIUM (BEAKER) (test 1.9 mg/dL 1.6-2.6 Specimen slightly hemolyzed dbgs=950) [id number] 22:20:00 Test Item Value Reference Range Comments PHOSPHORUS (BEAKER) (test 3.6 mg/dL 2.3-4.7 Specimen slightly hemolyzed tkzz=930) BASIC METABOLIC [id number] 22:20:00 Test Item Value Reference Range Comments SODIUM (BEAKER) (test 136 meq/L 136-145 rgsv=767) POTASSIUM (BEAKER) (test 4.0 meq/L 3.5-5.1 Specimen slightly avel=563) hemolyzed CHLORIDE (BEAKER) (test 107 meq/L 98-107 qsuk=649) CO2 (BEAKER) (test 19 meq/L 22-29 zzpa=035) BLOOD UREA NITROGEN 12 mg/dL 7-21 (BEAKER) (test zpqb=583) CREATININE (BEAKER) (test 0.68 mg/dL 0.57-1.25 Specimen slightly itnj=831) hemolyzed GLUCOSE RANDOM (BEAKER) 122 mg/dL 70-105 (test qhyd=203) CALCIUM (BEAKER) (test 8.6 mg/dL 8.4-10.2 okhg=371) EGFR (BEAKER) (test 123 mL/min/1.73 sq m ESTIMATED GFR IS NOT osjx=8025) ACCURATE CREATININE CLEARANCE IN PREDICTING GLOMERULAR FILTRATION RATE. ESTIMATED GFR IS NOT APPLICABLE FOR DIALYSIS PATIENTS. HEPATIC FUNCTION [id number] 22:20:00 Test Item Value Reference Range Comments TOTAL PROTEIN (BEAKER) (test 6.6 gm/dL 6.0-8.3 Specimen slightly hemolyzed kjyo=250) ALBUMIN (BEAKER) (test 3.9 g/dL 3.5-5.0 Specimen slightly hemolyzed jhca=7260) BILIRUBIN TOTAL (BEAKER) (test 0.5 mg/dL 0.2-1.2 Specimen slightly hemolyzed jeug=153) BILIRUBIN DIRECT (BEAKER) (test 0.2 mg/dL 0.1-0.5 Specimen slightly hemolyzed zrkm=387) ALKALINE PHOSPHATASE (BEAKER) 65 U/L 40-150 (test ypsz=555) AST (SGOT) (BEAKER) (test 214 U/L 5-34 Specimen slightly hemolyzed znql=199) ALT (SGPT) (BEAKER) (test 39 U/L 6-55 Specimen slightly hemolyzed ccmf=433) PROTHROMBIN [id number] 22:19:00 Test Item Value Reference Range Comments PROTIME (BEAKER) (test pzab=805) 15.5 seconds 11.7-14.7 INR (BEAKER) (test aeym=820) 1.2 <=5.9 RECOMMENDED COUMADIN/WARFARIN INR THERAPY RANGESSTANDARD DOSE: 2.0 - 3.0 Includes: PROPHYLAXIS forvenous thrombosis, systemic embolization; TREATMENT for venous thrombosis and/or pulmonary embolus.HIGH RISK: Target INR is 2.5-3.5 for patients with mechanical heart valves.CBC W/PLT COUNT & AUTO [id number] 22:03:00 Test Item Value Reference Range Comments WHITE BLOOD CELL COUNT (BEAKER) (test mlag=675) 15.7 K/ L 3.5-10.5 RED BLOOD CELL COUNT (BEAKER) (test vrne=901) 4.35 M/ L 4.63-6.08 HEMOGLOBIN (BEAKER) (test agfz=872) 13.4 GM/DL 13.7-17.5 HEMATOCRIT (BEAKER) (test xfgu=630) 40.1 % 40.1-51.0 MEAN CORPUSCULAR VOLUME (BEAKER) (test vlfl=737) 92.2 fL 79.0-92.2 MEAN CORPUSCULAR HEMOGLOBIN (BEAKER) (test 30.8 pg 25.7-32.2 sfox=387) MEAN CORPUSCULAR HEMOGLOBIN CONC (BEAKER) (test 33.4 GM/DL 32.3-36.5 khox=275) RED CELL DISTRIBUTION WIDTH (BEAKER) (test 12.6 % 11.6-14.4 inmu=544) PLATELET COUNT (BEAKER) (test tolg=036) 177 K/CU MM 150-450 MEAN PLATELET VOLUME (BEAKER) (test ngke=934) 11.4 fL 9.4-12.4 NUCLEATED RED BLOOD CELLS (BEAKER) (test 0 /100 WBC 0-0 vycq=773) NEUTROPHILS RELATIVE PERCENT (BEAKER) (test 80 % dxaw=173) LYMPHOCYTES RELATIVE PERCENT (BEAKER) (test 11 % qclo=523) MONOCYTES RELATIVE PERCENT (BEAKER) (test 7 % cisa=201) EOSINOPHILS RELATIVE PERCENT (BEAKER) (test 1 % qjzi=233) BASOPHILS RELATIVE PERCENT (BEAKER) (test 0 % mmme=538) NEUTROPHILS ABSOLUTE COUNT (BEAKER) (test 12.50 K/ L 1.78-5.38 nxud=423) LYMPHOCYTES ABSOLUTE COUNT (BEAKER) (test 1.78 K/ L 1.32-3.57 mtfw=019) MONOCYTES ABSOLUTE COUNT (BEAKER) (test 1.08 K/ L 0.30-0.82 wmvb=770) EOSINOPHILS ABSOLUTE COUNT (BEAKER) (test 0.14 K/ L 0.04-0.54 jlea=981) BASOPHILS ABSOLUTE COUNT (BEAKER) (test 0.06 K/ L 0.01-0.08 pbfr=241) IMMATURE GRANULOCYTES-RELATIVE PERCENT (BEAKER) 1 % 0-1 (test yzcp=5334) [id number] 21:55:00 Test Item Value Reference Range Comments ACTIVATED CLOTTING TIME 208 sec TESTED AT [place] [id number] [employer] (BEAKER) (test aozv=254) [place] [address] [id number] 19:50:00 Test Item Value Reference Range Comments ACTIVATED CLOTTING TIME 301 sec TESTED AT [facility] [address] (BEAKER) (test ptbv=241) [place] [address]
--- OUTSIDE RECORDS SUMMARY | 2019-07-26 14:37 | XMS REPORT | Summary of Care ---
:[address] [facility] Address [address] [place] [id number] Care Team Providers Name Role Phone Vilma Morris GUERRERO Primary Care Provider Reason for Referral (Routine) Status Reason Specialty Diagnoses / Referred By Referred To Procedures Contact Contact New Request Cardiology Diagnoses Coronary artery disease involving [place] coronary artery of [place] heart with angina pectoris Essential hypertension Soni Galdamez Procedures Cardiac Cath Request for Service (Cardiology Use Only) MD Dameon [address] [facility] [address] [place] [address] Reason for Visit Reason Comments Follow-up Re Establish Care Encounter Details Date Type Department Care Team Description 07/09/2019 Office Visit [facility] Soni Gadlamez Coronary artery disease involving [place] coronary artery of [place] heart with angina pectoris (Primary Dx); Cardiology- Jay Xiao MD Essential [facility]; [facility] [address] Atypical chest pain; Drive, [address] [place] 106 Cigarette nicotine dependence without complication; [place], [place] Dyslipidemia; [id number] elevation myocardial infarction (STEMI); [phone] POPE (dyspnea on exertion); Fatigue, unspecified type Allergies No Known Allergiesdocumented as of this encounter (statuses as of 07/11/2019) Medications Medication Sig Dispensed Refills Start Date End Date Status aspirin 81 mg EC Take 81 mg 0 Active tabletIndications: by mouth Coronary artery daily. disease involving [place] coronary artery of [place] heart without angina pectoris, Essential hypertension nitroglycerin 0.[address] 0.4 mg 0 Active mg sublingual under the tabletIndications: tongue every Coronary artery 5 (five) disease involving minutes as [place] coronary needed for artery of [place] Chest pain. heart without Not to angina pectoris, exceed 3 Essential doses hypertension budesonide-formote Inhale 2 0 Active rol (SYMBICORT) Puffs 2 160-4.5 (two) times mcg/actuation daily. inhaler levalbuterol 45 Inhale 1-2 0 Active mcg/actuation Puffs 3 inhaler (three) times daily as needed for Wheezing. atorvastatin 80 mg Take 1 30 tablet 5 06/10/2019 Active tabletIndications: tablet by Coronary artery mouth at disease involving bedtime. [place] coronary artery of [place] heart without angina pectoris lisinopril 10 mg Take 1 30 tablet 4 06/10/2019 Active tabletIndications: tablet by Essential mouth daily. hypertension, Coronary artery disease involving [place] coronary artery of [place] heart without angina pectoris clopidogrel 75 mg Take 1 30 tablet 5 06/10/2019 Active tabletIndications: tablet by Coronary artery mouth daily. disease involving [place] coronary artery of [place] heart without angina pectoris isosorbide TAKE 1 30 tablet 2 06/18/2019 Active mononitrate 30 mg TABLET BY 24 hr MOUTH ONCE tabletIndications: DAILY Coronary artery disease involving [place] coronary artery of [place] heart without angina pectoris levothyroxine 50 Take 1 30 tablet 0 06/19/2019 Active mcg tablet by 0 tabletIndications: mouth every Hypothyroidism, morning for unspecified type 30 days. carvediloL 12.5 mg Take 1 180 tablet 4 07/09/2019 Active tabletIndications: tablet by Coronary artery mouth 2 disease involving (two) times [place] coronary daily with artery of [place] meals. heart with angina pectoris ibuprofen 600 mg Take 600 mg 0 Discontinued tabletIndications: by mouth 0 (Therapy Coronary artery every 6 completed) disease involving (six) hours [place] coronary as needed. artery of [place] heart without angina pectoris, Essential hypertension, Cigarette nicotine dependence without complication, Dyslipidemia, History of ST elevation myocardial infarction (STEMI), POPE (dyspnea on exertion), Fatigue, unspecified type carvedilol 6.25 mg Take 1 30 tablet 5 06/10/2019 Discontinued tabletIndications: tablet by 0 (Dose adjustment) Coronary artery mouth 2 disease involving (two) times [place] coronary daily with artery of [place] meals. heart without angina pectoris carvediloL 6.25 mg Take 2 30 tablet 5 07/09/2019 Discontinued tabletIndications: tablets by 0 (Reorder) Coronary artery mouth 2 disease involving (two) times [place] coronary daily with artery of [place] meals. 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 Pulse 77 07/09/2019 10:22 AM METAL MOLD DRESSER Temperature - - Respiratory Rate 19 07/09/2019 10:22 AM METAL MOLD DRESSER Oxygen Saturation 99% 07/09/2019 10:22 AM METAL MOLD DRESSER Inhaled Oxygen Concentration - - Weight 85.1 kg (187 lb 11.2 oz) 07/09/2019 10:22 AM METAL MOLD DRESSER Height 185.4 cm (6' 1") 07/09/2019 10:22 AM METAL MOLD DRESSER Body Mass Index 24.76 07/09/2019 10:22 AM METAL MOLD DRESSER documented in this encounter Progress Notes Soni Galdamez MD - 07/09/2019 10:00 AM CST [facility] Cardiology Consult Note Patient: Garcia Matta Date of : 1965 Date of service: 07/09/2019 Primary Care Physician: Vilma Morris CHIEF COMPLAINT: Chief Complaint Patient presents with Follow-up Re Establish Care HISTORY OF PRESENT ILLNESS: Garcia Matta is a 54 year old male presented to the clinic for evaluation of chest pain. History from patient himself. Patient reports has been having chest pain, felt like tightness/sharp in her retrosternal area, lasted for few mins, with no clear aggravating or alleviating factors. No radiation. This has been going for last few months gradually worsening. POPE NYHA Class II. relieved by NTG very quickly. No PND or orthopnea. No pedal edema. No exertional palpitations or palpitations at rest. No syncopalattacks. PMH HTN, HLD, smoking, and CAD s/p PCI with residual R PDA stenosis. Hospital course summary: 52 year old M with hx of HTN not on any meds, tobacco abuse presented with STEMI. Underwent cath which showed 99% stenosis LAD s/p PCI, LCX mid 99% stenosis s/p PCI, 80% stenosis of OM s/p PCI, RCA with PDA 90% stenosis. Started on DAPT. Tolerated well. ECHO showed mildly reduced EF. SW was consulted to helps with meds as he does not have insurance. Referral was made to cardiac rehab. At the time of discharge he was hemodynamically stable. Previous Cardiac Studies: IMAGING - I personally reviewed, pertinent results as below: Echo 12/2017 Interpretation Summary A complete two-dimensional transthoracic echocardiogram was performed (2D, M- mode, Doppler and colorflow Doppler). There is no comparison study available. There is borderline concentric left ventricular hypertrophy. Left ventricular systolic function is normal. Diastolic function is impaired relaxation. The right ventricle is normal in size and function. Right ventricular systolic pressure is 20-25 mmHg. NM Stress 01/2018 IMPRESSION Impression: Apical scar. Mildly reduced ejection fraction with apical hypokinesis. I was present for the entire procedure. CORONARY ANGIOGRAM (outside) 09/26/17 Coronary Comments LMCA Normal LAD Bifid system 99% stenosis directly distal to D1 bifurcation S/p PCI --> 0% residual Diagonal Luminal irregulatities LCx Mid 99% stenosis S/p PCI --> 0% residual OM 80% stenosis S/p PCI --> 0% residual RCA PDA 90% stenosis Stent Implanted: Location of Stent Promus Premier 2.5 x 12 LAD, Mid Promus Premier 2.5 x 16 OM 1 Promus Premier 2.5 x 12 Circumflex, Mid (overlapping) Promus Premier 3.0 x 16 Circumflex, Proximal (overlapping) Patient was taken to catheter lab and had 3 coronary stents placed (mid LAD &amp ; proximal and mid LCx/OM1 ). Findings Left Ventricle The left ventricle is chamber size (by vol index ) is normal (male - LVED vol - 34- 74ml/m2). No evidence of LV hypertrophy. The following segment(s) appear akinetic: mid- apical anteroseptum, apex. The other segments contract normally. LVEF by Valladares's method of disk assessment is mildly reduced (45 -49%) . Grade 1 diastolic dysfunction ( impaired relaxation and low-normal LA pressure). Left AtriumLA [...] estimated RA pressure by IVC dynamics 5-10mmHg Summary The left ventricle is chamber size [...] . No significant pericardial effusion is visualized. PAST MEDICAL HISTORY Past Medical History: Diagnosis Date CAD (coronary artery disease) COPD (chronic obstructive pulmonary disease) Esophageal reflux Hypertension STEMI (ST elevation myocardial infarction) 09/2017 Dr. Galdamez Thyroid disease Past Surgical History: Procedure Laterality Date HI CSI ANY OTHER THAN PCI 2 YR STENT PLACEMENT (SHX) Family History Problem Relation Age of Onset Hypertension Mother Diabetes Mother Hypertension Daughter Cancer Maternal Grandmother ? SOCIAL HISTORY Social History Socioeconomic History Marital status: Single [...] file Gets together: Not on file Attends mosque service: Not on file Active member of [...] Concern Not on file Social History Narrative ALLERGIES No Known Allergies MEDICATIONS Patient's Medications START taking these medications No medications on file CONTINUE taking these medications which have NOT CHANGED ASPIRIN 81 MG EC TABLET Take 81 mg by mouth daily. ATORVASTATIN 80 MG TABLET Take 1 tablet by mouth at bedtime. BUDESONIDE-FORMOTEROL (SYMBICORT) 160-4.5 MCG/ACTUATION INHALER Inhale 2 Puffs 2 (two) times daily. CLOPIDOGREL 75 MG TABLET Take 1 tablet by mouth daily. ISOSORBIDE MONONITRATE 30 MG 24 HR TABLET TAKE 1 TABLET BY MOUTH ONCE DAILY LEVALBUTEROL 45 MCG/ACTUATION INHALER Inhale 1-2 Puffs 3 (three) times daily as needed for Wheezing. LEVOTHYROXINE 50 MCG TABLET Take 1 tablet by mouth every morning for 30 days. LISINOPRIL 10 MG TABLET Take 1 tablet by mouth daily. NITROGLYCERIN 0.[address] 0.4 mg under the tongue every 5 (five) minutes as needed for Chest pain. Not to exceed 3 doses START taking Modified Medications as Prescribed Modified Medication Previous Medication CARVEDILOL 12.5 MG TABLET carvedilol 6.25 mg tablet Take 1 tablet by mouth 2 (two) times daily with meals. Take 1 tablet by mouth 2 (two) times daily with meals. STOP taking these medications CARVEDILOL 6.25 MG TABLET Take 2 tablets by mouth 2 (two) times daily with meals. IBUPROFEN 600 MG TABLET Take 600 mg by mouth every 6 (six) hours as needed. REVIEW OF SYSTEMS: Comprehensive 10-system review was conducted and were negative except for what' s noted in the HPI. The following systems were reviewed: Constitutional, cardiovascular, respiratory, gastrointestinal, genitourinary, musculoskeletal, neurologic, psychiatric, endocrinological, and hematological. PHYSICAL EXAMINATION: Vitals: 07/09/19 1022 BP: 113/82 BP Location: Left arm Patient Position: Sitting BP CUFF SIZE: Adult Small Pulse: 77 Resp: 19 SpO2: 99% Weight: 187 lb 11.2 oz (85.1 kg) Height: 6' 1" (1.854 m) General: no apparent distress HEENT: normocephalic atraumatic Neck: supple, no lymphadenopathy, no bruits, no JVD Lungs: clear to auscultation bilaterally. No wheezes or rhonchi. No increased work of breathing. Cardio: Regular rate and rhythm, S1&S2 normal, no murmurs, rubs or gallops Abdomen: soft; non-tender; non-distended; normoactive bowel sounds. : not examined Rectal: not examined Extremities: no clubbing, cyanosis, or edema. Skin: no rashes, no visible lesions. Neuro: no gross focal deficits LABS - Reviewed pertinent labs as below: CBC BMP PT/INR WBC (10*3/L) Date Value 06/18/2019 8.77 NA (mmol/L) Date Value 06/19/2019 139 No results found for: PT PLT (10*3/L) Date Value 06/18/2019 192 K (mmol/L) Date Value 06/19/2019 4.0 INR (no units) Date Value 06/18/2019 1.0 HGB (g/dL) Date Value 06/18/2019 14.0 BUN (mg/dL) Date Value 06/19/2019 15 HCT (%) Date Value 06/18/2019 42.3 CREATININE (mg/dL) Date Value 06/19/2019 0.63 LIPID PROFILE GLUCOSE (mg/dL) Date Value 06/19/2019 114 (H) No results found for: CHOL TSH No results found for: LDL TSH (mIU/L) Date Value 06/18/2019 7.34 (H) CARDIAC ENZYMES No results found for: HDL No results found for: CK No results found for: TRIG LFTs No results found for: CKMB AST(SGOT) (U/L) Date Value 06/18/2019 34 TROPONIN I (ng/mL) Date Value 06/19/2019 0.004 ALTv (U/L) Date Value 06/18/2019 39 No results found for: BNP No results found for: LDL Recent Labs 06/19/19 1215 TROPNI 0.004 There are no current results on file for these tests and/or test for 1 year. No results found for: LDL NT-proBNP (pg/mL) Date Value 06/18/2019 83 ASSESSMENT/PLAN 1. Coronary artery disease involving [place] coronary artery of [place] heart with angina pectoris carvediloL 12.5 mg tablet CBC WITH DIFF COMP. METABOLIC PANEL (28932) LIPID PANEL (94471)(TOTAL CHOLESTEROL, TRIGLYCERIDES, HDL) PROTHROMBIN TIME / INR Cardiac Cath Request for Service (Cardiology Use Only) DISCONTINUED: carvediloL 6.25 mg tablet 2. Essential hypertension CBC WITH DIFF COMP. METABOLIC PANEL (85710) LIPID PANEL (18720)(TOTAL CHOLESTEROL, TRIGLYCERIDES, HDL) PROTHROMBIN TIME / INR Cardiac Cath Request for Service (Cardiology Use Only) 3. Atypical chest pain 4. Cigarette nicotine dependence without complication 5. Dyslipidemia 6. History of ST elevation myocardial infarction (STEMI) 7. POPE (dyspnea on exertion) 8. Fatigue, unspecified type In view of recurrent atypical chest pain with cardiac risk factors and negative stress test, recommended coronary angiogram for further assessment. Risk and benefits explained. He verbalized understanding and wished to proceed. Labs and cath orders placed. I have suggested heart catheterization to delinate coronary anatomy and possible angioplasty depending on the catheterization findings. I explained the heart catheterization and possible angioplasty/stent procedure as well as the attendant risks. These risks include, but are not limited to, major bleeding requiring blood transfusion or surgical repair, dye allergy, kidney insufficiency, heart attack,stroke, emergency heart bypass surgery, or . In average risk situations, the risk of these events is 1 in 300 for diagnostic heart catheterization and 3-5% for percutaneous coronary intervention. I estimated that the risk of major adverse events from the procedure in this situation is average. The patient understand(s) the risks and wish(es) to proceed. CAD s/p PCI: on ASA + Plavix, Coreg and Imdur. HTN: Currently on Coreg 12.5 mg BiD, Lisinopril 10 mg daily and Imdur 30 mg daily. Home BP log recommended. Cross check his BP machine. Appropriate ways to check home BP discussed. Goals BP < 130/80 stressed. Explained if BP > 130/80, adviced to send us the log. Lifestyle modifications stressed. Dyslipidemia: Recommended to keep LDL < 70. Lifestyle modifications stressed. Currently on lipitor 80 mg daily. Recommended to quit smoking. Patient's diease process and its evaluation and treatment were discussed. We discussed each of for cardio vascular-related problems and discussed long-term goals and expectations for the each problem.I reviewed each of the cardiac medications in detail. The diagnostic accuracy and limitation of stress testing for identification of coronary artery disease were reviewed in detail. Reviewed the medication with patient in detail recommended to continue taking the current medications without further changes. Recommended goal BP < 130/80 consistently, LDL << 70, HbA1c < 6.5. Recommended, explained and stressed the importance of healthy eating habits and exercises and lifestyle modifications Follow up as planned is predicated on symptoms stability and/or acceptable test results. Patient is urged to call in sooner should problems arise or if there is no improvement in cardiac symptoms. ER warning signs and symptoms explained and patient verbalized understanding. My diagnostic impression and treatment plans were discussed at length with the patient. All side effects as well as drug-drug interactions and risks discussed at length. Ample opportunity was offered and encouraged to ask questions during this visit and patient appreciated the answers given by me andverbzalised statisfcation in the answers given. We reviewed the [place] [employer] recommendations for reduction of overall cardio vascular risk. The importance of monitoring the blood pressure carefully both at home on regular basis along with other physicians appointment was stressed in detail. In addition we discussed target LDL levels for optimal risk reduction. It was advised that to daily physical activity be performed with 30 minutes of sustained exercise for both cardio vascular fitness and improvement for generalized medical health and well-being. Thank you for allowing us to participate in the care of Garcia Matta. If you have any questions or concerns please feel free to call our office at . I would be happy to be of further assistance for Garcia Matta dimitry. Best Galdamez MD Box Printing Machine Operator, Division of Cardiology [facility] documented in this encounter Plan of Treatment Date Type Specialty Care Team Description 07/29/2019 Office Visit Pulmonary Disease Demario Hernandez DO [address] [place] [address] 08/06/2019 Office Visit Gastroenterology Karlo Farnsworth, PALedaC [address] [place] [address] 11/08/2019 Office Visit Cardiology Soni Galdamez MD [address] [place]ET[place] [address] [place] [id number] Name Type Priority Associated Diagnoses Order Schedule CBC WITH DIFF LAB Routine Coronary artery disease 1 Occurrences starting involving [place] 07/09/2019 until coronary artery of 07/14/2020 [place] heart with angina pectoris Essential hypertension COMP. METABOLIC PANEL LAB Routine Coronary artery disease 1 Occurrences starting (66654) involving [place] 07/09/2019 until coronary artery of 07/09/2020 [place] heart with angina pectoris Essential hypertension LIPID PANEL LAB Routine Coronary artery disease 1 Occurrences starting (72927)(TOTAL involving [place] 07/09/2019 until CHOLESTEROL, coronary artery of 07/07/2020 TRIGLYCERIDES, HDL) [place] heart with angina pectoris Essential hypertension PROTHROMBIN TIME / INR LAB Routine Coronary artery disease 1 Occurrences starting involving [place] 07/09/2019 until coronary artery of 07/09/2020 [place] heart with angina pectoris Essential hypertension Health Maintenance Due Date Last Done Comments COLONOSCOPY 07/16/2019 Postponed from 2016 (Alternative Guidelines) DTaP,Tdap,and Td Vaccines (1 - 07/16/2019 Postponed from 1977 Tdap) (Alternative Guidelines) Zoster Recombinant Vaccine 07/16/2019 Postponed from 2016 (SHINGRIX) (1 of 2) (Alternative Guidelines) PNEUMOCOCCAL 0-64 YEARS COMBINED 07/27/2019 Postponed from 1972 SERIES (1 of 1 - PPSV23) (Alternative Guidelines) INFLUENZA VACCINE (#1) 2020 Postponed from 02/07/2019 (Refused) documented as of this encounter Results Not on filedocumented in this encounter Visit Diagnoses Diagnosis Coronary artery disease involving [place] coronary artery of [place] heart with angina pectoris - Primary Essential hypertension Unspecified essential hypertension Atypical chest pain Other chest pain Cigarette nicotine dependence without complication Tobacco use disorder Dyslipidemia Other and unspecified hyperlipidemia History of ST elevation myocardial infarction (STEMI) Old myocardial infarction POPE (dyspnea on exertion) Other dyspnea and respiratory abnormality Fatigue, unspecified type documented in this encounter Insurance Payer Benefit Plan Subscriber ID Effective Phone Address Type / Group Dates [employer] [id number] [address] [place] [address] [address] [place] [id number] [phone] [id number] (Home) [place] [id number] documented as of this encounter
--- OUTSIDE RECORDS SUMMARY | 2019-07-26 14:37 | XMS REPORT | Summary of Care ---
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 Essential hypertension Soni Galdamez Procedures Cardiac Cath Request for Service (Cardiology Use Only) MD Dameon [address] [facility] [address] [place] [address] Reason for Visit Reason Comments Follow-up Re Establish Care Encounter Details Date Type Department Care Team Description 07/09/2019 Office Visit [facility] Soni Galdamez 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 (Primary Dx); Cardiology- Jay Xiao MD Essential [facility]; [facility] [address] Atypical chest pain; Drive, [address] MEENAK[place]I 106 Cigarette nicotine dependence without complication; [place], [place] Dyslipidemia; [phone] elevation myocardial infarction (STEMI); [phone] POPE (dyspnea on exertion); Fatigue, unspecified type Allergies No Known Allergiesdocumented as of this encounter (statuses as of 07/11/2019) Medications Medication Sig Dispensed Refills Start Date End Date Status aspirin 81 mg EC Take 81 mg 0 Active tabletIndications: by mouth Coronary artery daily. disease involving creek coronary artery of creek heart without angina pectoris, Essential hypertension nitroglycerin 0.4 Place 0.4 mg 0 Active mg sublingual under the tabletIndications: tongue every Coronary artery 5 (five) disease involving minutes as creek coronary needed for artery of creek Chest pain. heart without Not to angina [...] Coronary artery mouth at disease involving bedtime. creek coronary artery of creek heart without angina pectoris lisinopril 10 mg Take 1 30 tablet 4 06/10/2019 Active tabletIndications: tablet by Essential mouth daily. hypertension, Coronary artery disease involving creek coronary artery of creek heart without angina pectoris clopidogrel 75 mg Take 1 30 tablet 5 06/10/2019 Active tabletIndications: tablet by Coronary artery mouth daily. disease involving creek coronary artery of creek heart without angina pectoris isosorbide TAKE 1 30 tablet 2 06/18/2019 Active mononitrate 30 mg TABLET BY 24 hr MOUTH ONCE tabletIndications: DAILY Coronary artery disease involving creek coronary artery of creek heart without angina pectoris levothyroxine 50 Take 1 30 tablet 0 06/19/2019 Active mcg tablet by 0 tabletIndications: mouth every Hypothyroidism, morning for unspecified type 30 days. carvediloL 12.5 mg Take 1 180 tablet 4 07/09/2019 Active tabletIndications: tablet by Coronary artery mouth 2 disease involving (two) times creek coronary daily with artery of creek meals. heart with angina pectoris ibuprofen 600 mg Take 600 mg 0 Discontinued tabletIndications: by mouth 0 (Therapy Coronary artery every 6 completed) disease involving (six) hours creek coronary as needed. artery of creek heart without angina pectoris, Essential hypertension, Cigarette nicotine dependence without complication, Dyslipidemia, History of ST elevation myocardial infarction (STEMI), POPE (dyspnea on exertion), Fatigue, unspecified type carvedilol 6.25 mg Take 1 30 tablet 5 06/10/2019 Discontinued tabletIndications: tablet by 0 (Dose adjustment) Coronary artery mouth 2 disease involving (two) times creek coronary daily with artery of creek meals. heart without angina pectoris carvediloL 6.25 mg Take 2 30 tablet 5 07/09/2019 Discontinued tabletIndications: tablets by 0 (Reorder) Coronary artery mouth 2 disease involving (two) times creek coronary daily with artery of creek meals. heart with angina pectoris documented as of this encounter (statuses as of 07/11/2019) Active Problems Problem Noted Date Chest pain 06/18/2019 Coronary artery disease involving creek heart 11/20/2017 Essential hypertension 11/20/2017 Tobacco [...] Comments Blood Pressure 113/82 07/09/2019 10:22 AM FILTER MACHINE OPERATOR Pulse 77 07/09/2019 10:22 AM FILTER MACHINE OPERATOR Temperature - - Respiratory Rate 19 07/09/2019 10:22 AM FILTER MACHINE OPERATOR Oxygen Saturation 99% 07/09/2019 10:22 AM FILTER MACHINE OPERATOR Inhaled Oxygen Concentration - - Weight 85.1 kg (187 lb 11.2 oz) 07/09/2019 10:22 AM FILTER MACHINE OPERATOR Height 185.4 cm (6' 1") 07/09/2019 10:22 AM FILTER MACHINE OPERATOR Body Mass Index 24.76 07/09/2019 10:22 AM FILTER MACHINE OPERATOR documented in this encounter Progress Notes Soni Galdamez MD - 07/09/2019 10:00 AM CST [facility] Cardiology Consult Note Patient: Garcia Matta [...] disease Past Surgical History: Procedure Laterality Date GA CSI ANY OTHER THAN PCI 2 YR [...] file Gets together: Not on file Attends judaism service: Not on file Active member of [...] 83 ASSESSMENT/PLAN 1. 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 METABOLIC PANEL (38463) LIPID PANEL (43376)(TOTAL CHOLESTEROL, TRIGLYCERIDES, HDL) PROTHROMBIN TIME / INR Cardiac Cath Request for Service (Cardiology Use Only) DISCONTINUED: carvediloL 6.25 mg tablet 2. Essential hypertension CBC WITH DIFF COMP. METABOLIC PANEL (24865) LIPID PANEL (13979)(TOTAL CHOLESTEROL, TRIGLYCERIDES, HDL) PROTHROMBIN TIME / INR [...] in the answers given. We reviewed the [place] [employer] recommendations for reduction of overall [...] for Garcia Matta dimitry. Best Galdamez MD Pony Ride Attendant, Division of Cardiology [facility] documented in this encounter Plan of Treatment Date Type Specialty Care Team Description 07/29/2019 Office Visit Pulmonary Disease Demario Hernandez DO [address] [place] [address] 08/06/2019 Office Visit Gastroenterology Karlo Farnsworth, PALedaC [address] [place] [address] 11/08/2019 Office Visit Cardiology Soni Galdamez MD [address] [place] [address] [place] [phone] Name Type Priority Associated Diagnoses Order Schedule CBC WITH DIFF LAB Routine Coronary artery disease 1 Occurrences starting involving creek 07/09/2019 until coronary artery of 07/14/2020 creek heart with angina pectoris Essential hypertension COMP. METABOLIC PANEL LAB Routine Coronary artery disease 1 Occurrences starting (30464) involving creek 07/09/2019 until coronary artery of 07/09/2020 creek heart with angina pectoris Essential hypertension LIPID PANEL LAB Routine Coronary artery disease 1 Occurrences starting (61373)(TOTAL involving creek 07/09/2019 until CHOLESTEROL, coronary artery of 07/07/2020 TRIGLYCERIDES, HDL) creek heart with angina pectoris Essential hypertension PROTHROMBIN TIME / INR LAB Routine Coronary artery disease 1 Occurrences starting involving creek 07/09/2019 until coronary artery of 07/09/2020 creek heart with angina pectoris Essential hypertension Health [...] Visit Diagnoses Diagnosis 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 [place] [id number] [address] [place] [address] [address] [place] [address] [phone] (Home) [place] [address] documented as of this encounter
--- OUTSIDE RECORDS SUMMARY | 2019-07-26 14:37 | XMS REPORT | Summary of Care ---
:1965 Author Organization [facility] Address [address] [place] [address] Care Team Providers Name Role Phone Vilma Morris Primary Care Provider Reason for Visit Reason Comments Thyroid Problem Encounter Details Date Type Department Care Team Description 07/08/2019 Office Visit [facility] Vilma Morris FNP [address] [place] [address] Hypothyroidism [facility] Primary (acquired) (Primary Dx) Clinic [address] [place] [phone] Allergies No Known Allergiesdocumented as of this encounter (statuses as of 07/08/2019) Medications Medication Sig Dispensed Refills Start Date End Date Status aspirin 81 mg EC Take 81 mg by 0 Active tabletIndications: mouth daily. Coronary artery disease involving [place] coronary artery of [place] heart without angina pectoris, Essential hypertension nitroglycerin 0.[address] 0.4 mg 0 Active sublingual under the tongue tabletIndications: every 5 (five) Coronary artery minutes as disease involving needed for Chest [place] coronary artery pain. Not to of [place] heart exceed 3 doses without angina pectoris, Essential hypertension ibuprofen 600 mg Take 600 mg by 0 Active tabletIndications: mouth every 6 Coronary artery (six) hours as disease involving needed. [place] coronary artery of [place] heart without angina pectoris, Essential hypertension, Cigarette [...] artery times daily with disease involving meals. [place] coronary artery of [place] heart without angina pectoris atorvastatin 80 mg Take 1 tablet by 30 tablet 5 06/10/2019 Active tabletIndications: mouth at Coronary artery bedtime. disease involving [place] coronary artery of [place] heart without angina pectoris lisinopril 10 mg Take 1 tablet by 30 tablet 4 06/10/2019 Active tabletIndications: mouth daily. Essential hypertension, Coronary artery disease involving [place] coronary artery of [place] heart without angina pectoris clopidogrel 75 mg Take 1 tablet by 30 tablet 5 06/10/2019 Active tabletIndications: mouth daily. Coronary artery disease involving [place] coronary artery of [place] heart without angina pectoris isosorbide mononitrate TAKE 1 TABLET BY 30 tablet 2 06/18/2019 Active 30 mg 24 hr MOUTH ONCE DAILY tabletIndications: Coronary artery disease involving [place] coronary artery of [place] heart without angina pectoris levothyroxine 50 mcg Take 1 tablet by 30 tablet 0 06/19/2019 07/19/2019 Active tabletIndications: mouth every Hypothyroidism, morning for 30 unspecified type days. documented as of this encounter (statuses as of 07/08/2019) Active Problems Problem Noted Date Chest pain 06/18/2019 Coronary artery disease involving [place] heart 11/20/2017 Essential hypertension 11/20/2017 Tobacco abuse 11/20/2017 documented as of this encounter (statuses as of 07/08/2019) Social History Tobacco Use Types Packs/Day Years [...] Signs Not on filedocumented in this encounter Progress Notes Vilma Morris FNP - 07/08/2019 8:15 AM CSTPatient in today for follow upTSH, T3 and T4 free lab draw Pt on levothyroxine 50 mcg for 2 wks. Will adjust meds accordingly. Has appointment with [facility]DS tomorrow Has appointment with Pulmonary and GI for screening colonoscopy discussion on . Vilma MASTERS- [facility] documented in this encounter Plan of Treatment Date Type Specialty Care Team Description 07/09/2019 Office Visit Cardiology Soni Galdamez MD [address] [phone] 07/29/2019 Office Visit Pulmonary Disease Demario Hernandez DO [address] [place] [phone] 08/06/2019 Office Visit Gastroenterology Karlo Farnsworth PA-C [address] [place], [place] [address] Health Maintenance Due Date Last Done Comments PNEUMOCOCCAL 0-64 YEARS COMBINED SERIES (1 of 1 - 1972 PPSV23) DTaP,Tdap,and Td Vaccines (1 - Tdap) 1977 COLONOSCOPY 2016 Zoster Recombinant Vaccine (SHINGRIX) (1 of 2) 2016 INFLUENZA VACCINE (#1) 2019 documented as of this encounter Results Not on filedocumented in this encounter Visit Diagnoses Diagnosis Hypothyroidism (acquired) - Primary Unspecified hypothyroidism documented in this encounter Insurance Payer Benefit Plan / Subscriber ID Effective Phone Address Type Group Dates HARRY MCDONALD [id number] 2017-Dany [phone] [facility] PRIMARY CARE PRIMARY CARE nt [address] [place] [address] documented as of this encounter
--- OUTSIDE RECORDS SUMMARY | 2019-07-26 14:37 | XMS REPORT | Summary of Care ---
:1965 Author Organization [facility] Address [address] [place] [address] Care Team Providers Name Role Phone Vilma Morris Primary Care Provider Reason for Visit Reason Comments Thyroid Problem Encounter Details Date Type Department Care Team Description 07/08/2019 Office Visit [facility] Vilma Morris FNP [address] [place] [address] Hypothyroidism [facility] Primary (acquired) (Primary Dx) Clinic [address] [place] [phone] Allergies No Known Allergiesdocumented as of this encounter (statuses as of 07/08/2019) Medications Medication Sig Dispensed Refills Start Date End Date Status aspirin 81 mg EC Take 81 mg by 0 Active tabletIndications: mouth daily. Coronary artery disease involving [place] coronary artery of [place] heart without angina pectoris, Essential hypertension nitroglycerin 0.[address] 0.4 mg 0 Active sublingual under the tongue tabletIndications: every 5 (five) Coronary artery minutes as disease involving needed for Chest [place] coronary artery pain. Not to of [place] heart exceed 3 doses without angina pectoris, Essential hypertension ibuprofen 600 mg Take 600 mg by 0 Active tabletIndications: mouth every 6 Coronary artery (six) hours as disease involving needed. [place] coronary artery of [place] heart without angina pectoris, Essential hypertension, Cigarette [...] artery times daily with disease involving meals. [place] coronary artery of [place] heart without angina pectoris atorvastatin 80 mg Take 1 tablet by 30 tablet 5 06/10/2019 Active tabletIndications: mouth at Coronary artery bedtime. disease involving [place] coronary artery of [place] heart without angina pectoris lisinopril 10 mg Take 1 tablet by 30 tablet 4 06/10/2019 Active tabletIndications: mouth daily. Essential hypertension, Coronary artery disease involving [place] coronary artery of [place] heart without angina pectoris clopidogrel 75 mg Take 1 tablet by 30 tablet 5 06/10/2019 Active tabletIndications: mouth daily. Coronary artery disease involving [place] coronary artery of [place] heart without angina pectoris isosorbide mononitrate TAKE 1 TABLET BY 30 tablet 2 06/18/2019 Active 30 mg 24 hr MOUTH ONCE DAILY tabletIndications: Coronary artery disease involving [place] coronary artery of [place] heart without angina pectoris levothyroxine 50 mcg Take 1 tablet by 30 tablet 0 06/19/2019 07/19/2019 Active tabletIndications: mouth every Hypothyroidism, morning for 30 unspecified type days. documented as of this encounter (statuses as of 07/08/2019) Active Problems Problem Noted Date Chest pain 06/18/2019 Coronary artery disease involving [place] heart 11/20/2017 Essential hypertension 11/20/2017 Tobacco abuse [...] Cardiology Soni Galdamez MD [address] [address] 07/29/2019 Office Visit Pulmonary Disease Demario Hernandez DO [address] [place] [phone] 08/06/2019 Office Visit Gastroenterology Karlo Farnsworth PA-C [address] [place], [place] [phone] Health Maintenance Due Date Last Done Comments [...] Phone Address Type Group Dates HARRY MCDONALD [id number] 2017-Dany [phone] [facility] PRIMARY CARE PRIMARY CARE nt [address] [place] [address] documented as of this encounter
--- OUTSIDE RECORDS SUMMARY | 2019-07-26 14:38 | XMS REPORT | Summary of Care ---
:1965 Author Organization [facility] Address [address] [place] [address] Care Team Providers Name Role Phone Vilma Morris Primary Care Provider Reason for Visit Reason Comments Lab Results Encounter Details Date Type Department Care Team Description 07/13/2019 Telephone [facility] Vilma Arriaza FNP Lab Results [address], [address] [place] [address] [place] [phone] Allergies No Known Allergiesdocumented as of this encounter (statuses as of 07/13/2019) Medications Medication Sig Dispensed Refills Start Date End Date Status aspirin 81 mg EC Take 81 mg by 0 Active tabletIndications: mouth daily. Coronary artery disease involving [place] coronary artery of [place] heart without angina pectoris, Essential hypertension nitroglycerin 0.[address] 0.4 mg 0 Active sublingual under the tabletIndications: tongue every Coronary artery 5 (five) disease involving minutes as [place] coronary needed for artery of [place] Chest pain. heart without angina Not to exceed pectoris, Essential 3 doses hypertension budesonide-formotero Inhale 2 0 Active l (SYMBICORT) Puffs 2 (two) 160-4.5 times daily. mcg/actuation inhaler levalbuterol 45 Inhale 1-2 0 Active mcg/actuation Puffs 3 inhaler (three) times daily as needed for Wheezing. atorvastatin 80 mg Take 1 tablet 30 tablet 5 06/10/2019 Active tabletIndications: by mouth at Coronary artery bedtime. disease involving [place] coronary artery of [place] heart without angina pectoris lisinopril 10 mg Take 1 tablet 30 tablet 4 06/10/2019 Active tabletIndications: by mouth Essential daily. hypertension, Coronary artery disease involving [place] coronary artery of [place] heart without angina pectoris clopidogrel 75 mg Take 1 tablet 30 tablet 5 06/10/2019 Active tabletIndications: by mouth Coronary artery daily. disease involving [place] coronary artery of [place] heart without angina pectoris isosorbide TAKE 1 TABLET 30 tablet 2 06/18/2019 Active mononitrate 30 mg 24 BY MOUTH ONCE hr DAILY tabletIndications: Coronary artery disease involving [place] coronary artery of [place] heart without angina pectoris carvediloL 12.5 mg Take 1 tablet 180 tablet 4 07/09/2019 Active tabletIndications: by mouth 2 Coronary artery (two) times disease involving daily with [place] coronary meals. artery of [place] heart with angina pectoris levothyroxine 75 mcg Take 1 tablet 30 tablet 5 07/13/2019 Active tabletIndications: by mouth Hypothyroidism every (acquired) morning. levothyroxine 50 mcg Take 1 tablet 30 tablet 0 06/19/2019 Discontinued tabletIndications: by mouth 0 Hypothyroidism, every morning unspecified type for 30 days. documented as of this encounter (statuses as of 07/13/2019) Active Problems Problem Noted Date Chest pain 06/18/2019 Coronary artery disease involving [place] heart 11/20/2017 Essential hypertension 11/20/2017 Tobacco abuse 11/20/2017 documented as of this encounter (statuses as of 07/13/2019) Social History Tobacco Use Types Packs/Day Years [...] Office Visit Pulmonary Disease Demario Hernandez DO [address] [place] [phone] 08/04/2019 Appointment Cardiac Chemicals Distiller Padmini Callahan 08/06/2019 Office Visit Gastroenterology Karlo Farnsworth PA-C [address] [place] [address] [phone] 11/08/2019 Office Visit Cardiology Soni Galdamez MD [address] [place] [phone] Health Maintenance Due Date Last Done Comments [...] Address Type / Group Dates HARRY MCDONALD [id number] 2017-[place] [phone] [facility] PRIMARY CARE PRIMARY CARE nt [address] [place] [address] [employer] [place] [place] [id number] [address] [place] [address] [address] C [address] [place] [address] documented as of this encounter
--- OUTSIDE RECORDS SUMMARY | 2019-07-26 14:38 | XMS REPORT | Summary of Care ---
:1965 Author Organization [facility] Address [address] [place] [address] Care Team Providers Name Role Phone Vilma Morris Primary Care Provider Reason for Visit Reason Comments Lab Results Encounter Details Date Type Department Care Team Description 07/13/2019 Telephone [facility] Vilma Arriaza FNP Lab Results [address], [address] [place] [address] [place] [phone] Allergies No Known Allergiesdocumented as of this encounter (statuses as of 07/13/2019) Medications Medication Sig Dispensed Refills Start Date End Date Status aspirin 81 mg EC Take 81 mg by 0 Active tabletIndications: mouth daily. Coronary artery disease involving [place] coronary artery of [place] heart without angina pectoris, Essential hypertension nitroglycerin 0.[address] 0.4 mg 0 Active sublingual under the tabletIndications: tongue every Coronary artery 5 (five) disease involving minutes as [place] coronary needed for artery of [place] Chest pain. heart without angina Not to [...] mouth at Coronary artery bedtime. disease involving [place] coronary artery of [place] heart without angina pectoris lisinopril 10 mg Take 1 tablet 30 tablet 4 06/10/2019 Active tabletIndications: by mouth Essential daily. hypertension, Coronary artery disease involving [place] coronary artery of [place] heart without angina pectoris clopidogrel 75 mg Take 1 tablet 30 tablet 5 06/10/2019 Active tabletIndications: by mouth Coronary artery daily. disease involving [place] coronary artery of [place] heart without angina pectoris isosorbide TAKE 1 TABLET 30 tablet 2 06/18/2019 Active mononitrate 30 mg 24 BY MOUTH ONCE hr DAILY tabletIndications: Coronary artery disease involving [place] coronary artery of [place] heart without angina pectoris carvediloL 12.5 mg Take 1 tablet 180 tablet 4 07/09/2019 Active tabletIndications: by mouth 2 Coronary artery (two) times disease involving daily with [place] coronary meals. artery of [place] heart with angina pectoris levothyroxine 75 mcg [...] Chest pain 06/18/2019 Coronary artery disease involving [place] heart 11/20/2017 Essential hypertension 11/20/2017 Tobacco abuse [...] Office Visit Pulmonary Disease Demario Hernandez DO [address] [place] [phone] 08/04/2019 Appointment Cardiac Armament Mechanic Padmini Callahan 08/06/2019 Office Visit Gastroenterology Karlo Farnsworth PA-C [address] [place] [address] [phone] 11/08/2019 Office Visit Cardiology Soni Galdamez MD [address] [place] [phone] Health Maintenance Due Date Last Done Comments [...] Address Type / Group Dates HARRY MCDONALD [id number] 2017-[employer] [phone] [facility] PRIMARY CARE PRIMARY CARE nt [address] [place] [address] [employer] [place] [id number] [address] [address] H C I H C nt [address] [place] [address] documented as of this encounter
--- OUTSIDE RECORDS SUMMARY | 2019-07-26 14:38 | XMS REPORT | Summary of Care ---
:1965 Author Organization [facility] Address [address] [place] [address] Care Team Providers Name Role Phone Vilma Morris Primary Care Provider Reason for Visit Reason Comments Lab Results Encounter Details Date Type Department Care Team Description 07/13/2019 Telephone [facility] Vilma Arriaza FNP Lab Results [address], [address] [place] [address] [place] [phone] Allergies No Known Allergiesdocumented as of this encounter (statuses as of 07/13/2019) Medications Medication Sig Dispensed Refills Start Date End Date Status aspirin 81 mg EC Take 81 mg by 0 Active tabletIndications: mouth daily. Coronary artery disease involving [place] coronary artery of [place] heart without angina pectoris, Essential hypertension nitroglycerin 0.[address] 0.4 mg 0 Active sublingual under the tabletIndications: tongue every Coronary artery 5 (five) disease involving minutes as [place] coronary needed for artery of [place] Chest pain. heart without angina Not to [...] mouth at Coronary artery bedtime. disease involving [place] coronary artery of [place] heart without angina pectoris lisinopril 10 mg Take 1 tablet 30 tablet 4 06/10/2019 Active tabletIndications: by mouth Essential daily. hypertension, Coronary artery disease involving [place] coronary artery of [place] heart without angina pectoris clopidogrel 75 mg Take 1 tablet 30 tablet 5 06/10/2019 Active tabletIndications: by mouth Coronary artery daily. disease involving [place] coronary artery of [place] heart without angina pectoris isosorbide TAKE 1 TABLET 30 tablet 2 06/18/2019 Active mononitrate 30 mg 24 BY MOUTH ONCE hr DAILY tabletIndications: Coronary artery disease involving [place] coronary artery of [place] heart without angina pectoris carvediloL 12.5 mg Take 1 tablet 180 tablet 4 07/09/2019 Active tabletIndications: by mouth 2 Coronary artery (two) times disease involving daily with [place] coronary meals. artery of [place] heart with angina pectoris levothyroxine 75 mcg [...] Chest pain 06/18/2019 Coronary artery disease involving [place] heart 11/20/2017 Essential hypertension 11/20/2017 Tobacco abuse [...] Office Visit Pulmonary Disease Demario Hernandez DO [address] [place] [address] 08/04/2019 Appointment Cardiac Computational Geneticist Padmini Callahan 08/06/2019 Office Visit Gastroenterology Karlo Farnsworth PA-C [address] [place] [address] [phone] 11/08/2019 Office Visit Cardiology Soni Galdamez MD [address] [place] [phone] Health Maintenance Due Date Last Done Comments [...] Address Type / Group Dates HARRY MCDONALD [id number] 2017-Preskurtis [phone] [facility] PRIMARY CARE PRIMARY CARE nt [address] [place] [address] [place]. [id number] [address] [address] [address] [facility] [address] [place] [address] documented as of this encounter
--- OUTSIDE RECORDS SUMMARY | 2019-07-26 14:38 | XMS REPORT | Summary of Care ---
:1965 Author Organization [facility] Address [address] [place] [address] Care Team Providers Name Role Phone Arturo Vilma GUERRERO Primary Care Provider Reason for Visit Reason Comments Appointment [facility] Encounter Details Date Type Department Care Team Description 07/13/2019 Telephone [facility] Soni Galdamez Appointment ( [facility]) Cardiac Catheterization Lab MD Dameon [facility] [address] [facility] [address], [address] [phone] Allergies No Known Allergiesdocumented as of this encounter (statuses as of 07/13/2019) Medications Medication Sig Dispensed Refills Start Date End Date Status aspirin 81 mg EC Take 81 mg by 0 Active tabletIndications: mouth daily. Coronary artery disease involving [place] coronary artery of [place] heart without angina pectoris, Essential hypertension nitroglycerin 0.[address] 0.4 mg 0 Active sublingual under the tabletIndications: tongue every 5 Coronary artery (five) minutes disease involving as needed for elem coronary artery Chest pain. Not of elem heart to exceed 3 without angina doses pectoris, Essential hypertension budesonide-formoterol Inhale 2 Puffs 0 Active (SYMBICORT) 160-4.5 2 (two) times mcg/actuation inhaler daily. levalbuterol 45 Inhale 1-2 0 Active mcg/actuation inhaler Puffs 3 (three) times daily as needed for Wheezing. atorvastatin 80 mg Take 1 tablet 30 tablet 5 06/10/2019 Active tabletIndications: by mouth at Coronary artery bedtime. disease involving [place] coronary artery of elem heart without angina pectoris lisinopril 10 mg Take 1 tablet 30 tablet 4 06/10/2019 Active tabletIndications: by mouth daily. Essential hypertension, Coronary artery disease involving [place] coronary artery of elem heart without angina pectoris clopidogrel 75 mg Take 1 tablet 30 tablet 5 06/10/2019 Active tabletIndications: by mouth daily. Coronary artery disease involving [place] coronary artery of elem heart without angina pectoris isosorbide mononitrate TAKE 1 TABLET 30 tablet 2 06/18/2019 Active 30 mg 24 hr BY MOUTH ONCE tabletIndications: DAILY Coronary artery disease involving [place] coronary artery of elem heart without angina pectoris levothyroxine 50 mcg Take 1 tablet 30 tablet 0 06/19/2019 07/19/2019 Active tabletIndications: by mouth every Hypothyroidism, morning for 30 unspecified type days. carvediloL 12.5 mg Take 1 tablet 180 tablet 4 07/09/2019 Active tabletIndications: by mouth 2 Coronary artery (two) times disease involving daily with elem coronary artery meals. of elem heart with angina pectoris documented as of this encounter (statuses as of 07/13/2019) Active Problems Problem Noted Date Chest pain 06/18/2019 Coronary artery disease involving elem heart 11/20/2017 Essential hypertension 11/20/2017 Tobacco abuse [...] Office Visit Pulmonary Disease Demario Hernandez DO [address] [place] [phone] 08/04/2019 Appointment Cardiac Beehive Kiln Charcoal Burner Padmini Callahan 08/06/2019 Office Visit Gastroenterology Karlo Farnsworth PA-C [address] [place] [address] [phone] 11/08/2019 Office Visit Cardiology Soni Galdamez MD [address] [place] [phone] Health Maintenance Due Date Last Done Comments [...] Address Type / Group Dates HARRY MCDONALD [id number] 2017-Prese [phone] [facility] PRIMARY CARE PRIMARY CARE nt [address] [place] [address] [place]. [id number] [address]-[place] [address] [facility] [address] [facility] [address] [place] [address] documented as of this encounter
--- OUTSIDE RECORDS SUMMARY | 2019-07-26 14:39 | XMS REPORT | Summary of Care ---
:1965 Author Organization [facility] Address [address] [place] [address] Care Team Providers Name Role Phone Vilma Morris Primary Care Provider Reason for Visit Reason Comments Lab Results Encounter Details Date Type Department Care Team Description 07/13/2019 Telephone [facility] [place] [facility] Vilma Arriaza FNP Lab Results [address], [address] [place] [address] [place] [phone] Allergies No Known Allergiesdocumented as of this encounter (statuses as of 07/16/2019) Medications Medication Sig Dispensed Refills Start Date End Date Status aspirin 81 mg EC Take 81 mg by 0 Active tabletIndications: mouth daily. Coronary artery disease involving [place] coronary artery of [place] heart without angina pectoris, Essential hypertension nitroglycerin 0.[address] 0.4 mg 0 Active sublingual under the tabletIndications: tongue every Coronary artery 5 (five) disease involving minutes as [place] coronary needed for artery of [place] Chest pain. heart without angina Not to [...] mouth at Coronary artery bedtime. disease involving [place] coronary artery of [place] heart without angina pectoris lisinopril 10 mg Take 1 tablet 30 tablet 4 06/10/2019 Active tabletIndications: by mouth Essential daily. hypertension, Coronary artery disease involving [place] coronary artery of [place] heart without angina pectoris clopidogrel 75 mg Take 1 tablet 30 tablet 5 06/10/2019 Active tabletIndications: by mouth Coronary artery daily. disease involving [place] coronary artery of [place] heart without angina pectoris isosorbide TAKE 1 TABLET 30 tablet 2 06/18/2019 Active mononitrate 30 mg 24 BY MOUTH ONCE hr DAILY tabletIndications: Coronary artery disease involving [place] coronary artery of [place] heart without angina pectoris carvediloL 12.5 mg Take 1 tablet 180 tablet 4 07/09/2019 Active tabletIndications: by mouth 2 Coronary artery (two) times disease involving daily with [place] coronary meals. artery of [place] heart with angina pectoris levothyroxine 75 mcg Take 1 tablet 30 tablet 5 07/13/2019 Active tabletIndications: by mouth Hypothyroidism every (acquired) morning. levothyroxine 50 mcg Take 1 tablet 30 tablet 0 06/19/2019 Discontinued tabletIndications: by mouth 0 Hypothyroidism, every morning unspecified type for 30 days. documented as of this encounter (statuses as of 07/16/2019) Active Problems Problem Noted Date Chest pain 06/18/2019 Coronary artery disease involving [place] heart 11/20/2017 Essential hypertension 11/20/2017 Tobacco abuse 11/20/2017 documented as of this encounter (statuses as of 07/16/2019) Social History Tobacco Use Types Packs/Day Years [...] Treatment Date Type Specialty Care Team Description 07/22/2019 Office Visit Family Medicine Vilma Morris FNP [address] [place] [address] [phone] Bakari Harry 07/29/2019 Office Visit Pulmonary Disease Demario Hernandez DO [address] [place] [address] [phone] 08/04/2019 Appointment Cardiac Allergist Outpt-Padmini Conner 08/06/2019 Office Visit Gastroenterology Karlo Farnsworth PA-C [address] [place] [address] [phone] 11/08/2019 Office Visit Cardiology Soni Galdamez MD [address] [phone] Health Maintenance Due Date Last Done Comments [...] Address Type / Group Dates HARRY MCDONALD [id number] 2017-Prese [phone] [facility] PRIMARY CARE PRIMARY CARE nt [address] [place] [address] [place]. [place]. [id number] 2017-[place] [place] [address] [address] [place] [address] [place] [address] documented as of this encounter
--- OUTSIDE RECORDS SUMMARY | 2019-07-26 14:39 | XMS REPORT | Summary of Care ---
:1965 Author Organization [facility] Address [address] [place] [address] Care Team Providers Name Role Phone Vilma Morris Primary Care Provider Reason for Visit Reason Comments Lab Results Encounter Details Date Type Department Care Team Description 07/13/2019 Telephone [facility] Vilma Arriaza FNP Lab Results [address], [address] [place] [address] [place] [phone] Allergies No Known Allergiesdocumented as of this encounter (statuses as of 07/16/2019) Medications Medication Sig Dispensed Refills Start Date End Date Status aspirin 81 mg EC Take 81 mg by 0 Active tabletIndications: mouth daily. Coronary artery disease involving [place] coronary artery of [place] heart without angina pectoris, Essential hypertension nitroglycerin 0.[address] 0.4 mg 0 Active sublingual under the tabletIndications: tongue every Coronary artery 5 (five) disease involving minutes as [place] coronary needed for artery of [place] Chest pain. heart without angina Not to [...] mouth at Coronary artery bedtime. disease involving [place] coronary artery of [place] heart without angina pectoris lisinopril 10 mg Take 1 tablet 30 tablet 4 06/10/2019 Active tabletIndications: by mouth Essential daily. hypertension, Coronary artery disease involving [place] coronary artery of [place] heart without angina pectoris clopidogrel 75 mg Take 1 tablet 30 tablet 5 06/10/2019 Active tabletIndications: by mouth Coronary artery daily. disease involving [place] coronary artery of [place] heart without angina pectoris isosorbide TAKE 1 TABLET 30 tablet 2 06/18/2019 Active mononitrate 30 mg 24 BY MOUTH ONCE hr DAILY tabletIndications: Coronary artery disease involving [place] coronary artery of [place] heart without angina pectoris carvediloL 12.5 mg Take 1 tablet 180 tablet 4 07/09/2019 Active tabletIndications: by mouth 2 Coronary artery (two) times disease involving daily with [place] coronary meals. artery of [place] heart with angina pectoris levothyroxine 75 mcg [...] Chest pain 06/18/2019 Coronary artery disease involving [place] heart 11/20/2017 Essential hypertension 11/20/2017 Tobacco abuse [...] Family Medicine Vilma Morris FNP [address] [place] [address] [phone] Bakari Harry 07/29/2019 Office Visit Pulmonary Disease Demario Hernandez DO [address] [place] [address] [phone] 08/04/2019 Appointment Cardiac Tool And Die Maker Level Five Outpt-Padmini Conner 08/06/2019 Office Visit Gastroenterology Karlo Farnsworth PA-C [address] [place] [address] [phone] 11/08/2019 Office Visit Cardiology Soni Galdamez MD [address] [phone] Health Maintenance Due Date Last Done Comments [...] Address Type / Group Dates HARRY MCDONALD [id number] 2017-Prese [phone] [facility] PRIMARY CARE PRIMARY CARE nt [address] [place] [address] [place]. [id number] 2017-[place] [address] [place] [address] [place] [address] documented as of this encounter
--- OUTSIDE RECORDS SUMMARY | 2019-07-26 14:39 | XMS REPORT | Summary of Care ---
:1965 Author Organization [facility] Address [address] [place] [address] Care Team Providers Name Role Phone Vilma Morris Primary Care Provider Reason for Visit Reason Comments Lab Results Encounter Details Date Type Department Care Team Description 07/13/2019 Telephone [facility] Vilma Arriaza FNP Lab Results [address], [address] [place] [address] [place] [phone] Allergies No Known Allergiesdocumented as of this encounter (statuses as of 07/16/2019) Medications Medication Sig Dispensed Refills Start Date End Date Status aspirin 81 mg EC Take 81 mg by 0 Active tabletIndications: mouth daily. Coronary artery disease involving [place] coronary artery of [place] heart without angina pectoris, Essential hypertension nitroglycerin 0.[address] 0.4 mg 0 Active sublingual under the tabletIndications: tongue every Coronary artery 5 (five) disease involving minutes as [place] coronary needed for artery of [place] Chest pain. heart without angina Not to [...] mouth at Coronary artery bedtime. disease involving [place] coronary artery of [place] heart without angina pectoris lisinopril 10 mg Take 1 tablet 30 tablet 4 06/10/2019 Active tabletIndications: by mouth Essential daily. hypertension, Coronary artery disease involving [place] coronary artery of [place] heart without angina pectoris clopidogrel 75 mg Take 1 tablet 30 tablet 5 06/10/2019 Active tabletIndications: by mouth Coronary artery daily. disease involving [place] coronary artery of [place] heart without angina pectoris isosorbide TAKE 1 TABLET 30 tablet 2 06/18/2019 Active mononitrate 30 mg 24 BY MOUTH ONCE hr DAILY tabletIndications: Coronary artery disease involving [place] coronary artery of [place] heart without angina pectoris carvediloL 12.5 mg Take 1 tablet 180 tablet 4 07/09/2019 Active tabletIndications: by mouth 2 Coronary artery (two) times disease involving daily with [place] coronary meals. artery of [place] heart with angina pectoris levothyroxine 75 mcg [...] Chest pain 06/18/2019 Coronary artery disease involving [place] heart 11/20/2017 Essential hypertension 11/20/2017 Tobacco abuse [...] Family Medicine Vilma Morris FNP [address] [place] [address] [phone] Bakari Harry 07/29/2019 Office Visit Pulmonary Disease Demario Hernandez DO [address] [place] [address] [phone] 08/04/2019 Appointment Cardiac Account Support Associate Outpt-Padmini Conner 08/06/2019 Office Visit Gastroenterology Karlo Farnsworth PA-C [address] [place] [address] [phone] 11/08/2019 Office Visit Cardiology Soni Galdamez MD [address] [phone] Health Maintenance Due Date Last Done Comments [...] Address Type / Group Dates HARRY MCDONALD [id number] 2017-Prese [phone] [facility] PRIMARY CARE PRIMARY CARE nt [address] [place] [address] [place]. [place] CO. [id number] 2017-[place] [place] [address] [address] [place] [address] [place] [address] documented as of this encounter
--- OUTSIDE RECORDS SUMMARY | 2019-07-26 14:39 | XMS REPORT | Summary of Care ---
:1965 Author Organization [facility] Address [address] [place] [address] Care Team Providers Name Role Phone Vilma Morris Primary Care Provider Reason for Visit Reason Comments Lab Results Encounter Details Date Type Department Care Team Description 07/13/2019 Telephone [facility] Vilma Arriaza FNP Lab Results [address], [address] [place] [address] [place] [phone] Allergies No Known Allergiesdocumented as of this encounter (statuses as of 07/16/2019) Medications Medication Sig Dispensed Refills Start Date End Date Status aspirin 81 mg EC Take 81 mg by 0 Active tabletIndications: mouth daily. Coronary artery disease involving [place] coronary artery of [place] heart without angina pectoris, Essential hypertension nitroglycerin 0.[address] 0.4 mg 0 Active sublingual under the tabletIndications: tongue every Coronary artery 5 (five) disease involving minutes as [place] coronary needed for artery of [place] Chest pain. heart without angina Not to [...] mouth at Coronary artery bedtime. disease involving [place] coronary artery of [place] heart without angina pectoris lisinopril 10 mg Take 1 tablet 30 tablet 4 06/10/2019 Active tabletIndications: by mouth Essential daily. hypertension, Coronary artery disease involving [place] coronary artery of [place] heart without angina pectoris clopidogrel 75 mg Take 1 tablet 30 tablet 5 06/10/2019 Active tabletIndications: by mouth Coronary artery daily. disease involving [place] coronary artery of [place] heart without angina pectoris isosorbide TAKE 1 TABLET 30 tablet 2 06/18/2019 Active mononitrate 30 mg 24 BY MOUTH ONCE hr DAILY tabletIndications: Coronary artery disease involving [place] coronary artery of [place] heart without angina pectoris carvediloL 12.5 mg Take 1 tablet 180 tablet 4 07/09/2019 Active tabletIndications: by mouth 2 Coronary artery (two) times disease involving daily with [place] coronary meals. artery of [place] heart with angina pectoris levothyroxine 75 mcg Take 1 tablet 30 tablet 5 07/13/2019 Active tabletIndications: by mouth Hypothyroidism every (acquired) morning. levothyroxine 50 mcg Take 1 tablet 30 tablet 5 07/16/2019 Active tabletIndications: by mouth Hypothyroidism every (acquired) morning. levothyroxine 50 mcg Take 1 tablet 30 tablet 0 06/19/2019 Discontinued tabletIndications: by mouth 0 Hypothyroidism, every morning unspecified type for 30 days. documented as of this encounter (statuses as of 07/16/2019) Active Problems Problem Noted Date Chest pain 06/18/2019 Coronary artery disease involving [place] heart 11/20/2017 Essential hypertension 11/20/2017 Tobacco [...] Description 07/22/2019 Office Visit Family Medicine Vilma Morris, WINTER SPORTS MANAGER [address] [place] [address] [phone] Care, Ang Primary 07/29/2019 Office Visit Pulmonary Disease Demario Hernandez, [address] [place] [address] 08/04/2019 Appointment Cardiac Aircraft Sheet Metal Mechanic Outpt-Padmini Conner 08/06/2019 Office Visit Gastroenterology Karlo Farnsworth, PALedaC [address] [place] [address] [phone] 11/08/2019 Office Visit Cardiology Soni Galdamez MD [address] [place] [address] Health Maintenance Due Date Last Done [...] Address Type / Group Dates HARRY MCDONALD [id number] 2017-Prese [phone] [facility] PRIMARY CARE PRIMARY CARE nt [address] [place] [address] [place]Y [place]. I HARRY SOLIS [id number] 2017-[place] [address] [place] [address] [place] [id number] documented as of this encounter
--- OUTSIDE RECORDS SUMMARY | 2019-07-26 14:40 | XMS REPORT | Summary of Care ---
:1965 Author Organization [facility] Address [address] [place] [address] Care Team Providers Name Role Phone Vilma Morris Primary Care Provider Reason for Visit Reason Comments Thyroid Problem Encounter Details Date Type Department Care Team Description 07/08/2019 Office Visit [facility] Vilma Morris FNP [address] [place] [address] Hypothyroidism [facility] Primary (acquired) (Primary Dx) Clinic [address] [place] [phone] Allergies No Known Allergiesdocumented as of this encounter (statuses as of 07/08/2019) Medications Medication Sig Dispensed Refills Start Date End Date Status aspirin 81 mg EC Take 81 mg by 0 Active tabletIndications: mouth daily. Coronary artery disease involving [place] coronary artery of [place] heart without angina pectoris, Essential hypertension nitroglycerin 0.[address] 0.4 mg 0 Active sublingual under the tongue tabletIndications: every 5 (five) Coronary artery minutes as disease involving needed for Chest [place] coronary artery pain. Not to of [place] heart exceed 3 doses without angina pectoris, Essential hypertension ibuprofen 600 mg Take 600 mg by 0 Active tabletIndications: mouth every 6 Coronary artery (six) hours as disease involving needed. [place] coronary artery of [place] heart without angina pectoris, Essential hypertension, Cigarette [...] artery times daily with disease involving meals. [place] coronary artery of [place] heart without angina pectoris atorvastatin 80 mg Take 1 tablet by 30 tablet 5 06/10/2019 Active tabletIndications: mouth at Coronary artery bedtime. disease involving [place] coronary artery of [place] heart without angina pectoris lisinopril 10 mg Take 1 tablet by 30 tablet 4 06/10/2019 Active tabletIndications: mouth daily. Essential hypertension, Coronary artery disease involving [place] coronary artery of [place] heart without angina pectoris clopidogrel 75 mg Take 1 tablet by 30 tablet 5 06/10/2019 Active tabletIndications: mouth daily. Coronary artery disease involving [place] coronary artery of [place] heart without angina pectoris isosorbide mononitrate TAKE 1 TABLET BY 30 tablet 2 06/18/2019 Active 30 mg 24 hr MOUTH ONCE DAILY tabletIndications: Coronary artery disease involving [place] coronary artery of [place] heart without angina pectoris levothyroxine 50 mcg Take 1 tablet by 30 tablet 0 06/19/2019 07/19/2019 Active tabletIndications: mouth every Hypothyroidism, morning for 30 unspecified type days. documented as of this encounter (statuses as of 07/08/2019) Active Problems Problem Noted Date Chest pain 06/18/2019 Coronary artery disease involving [place] heart 11/20/2017 Essential hypertension 11/20/2017 Tobacco abuse [...] on filedocumented in this encounter Progress Notes Love Anderson, SUKHWINDER - 07/08/2019 8:15 AM Compa Matta is a 54 year old male Patient seen in clinic today for lab work.Lab work drawn per provider orders. Needle stick x (1) attempt to left antecubital. Tolerated well. No bruising, or complaint of discomfort noted to site. Vilma Adams FNP - 07/08/2019 8:15 AM CSTPatient in today for follow upTSH, T3 and T4 free lab draw Pt on levothyroxine 50 mcg for 2 wks. Will adjust meds accordingly. Has appointment with [facility] tomorrow Has appointment with Pulmonary and GI for screening colonoscopy discussion on . Vilma [facility] documented in this encounter Plan of Treatment Date Type Specialty Care Team Description 07/09/2019 Office Visit Cardiology Soni Galdamez MD [address] [phone] 07/29/2019 Office Visit Pulmonary Disease Demario Hernandez DO [address] [place] [phone] 08/06/2019 Office Visit Gastroenterology Karlo Farnsworth PA-C [address] [place], [place] [address] Health Maintenance Due Date Last Done Comments [...] ID Effective Phone Address Type Group Dates MEKHIGORGE MCDONALD [id number] 2017-Dany [phone] [facility] PRIMARY CARE PRIMARY CARE nt [address] [place] [address] documented as of this encounter
--- OUTSIDE RECORDS SUMMARY | 2019-07-26 14:40 | XMS REPORT | Summary of Care ---
:1965 Author Organization [facility] Address [address] [place] [address] Care Team Providers Name Role Phone Vilma Morris GUERRERO Primary Care Provider Reason for Referral MRI/CAT Scan (STAT) Status Reason Specialty Diagnoses / Referred By Referred To Procedures Contact Contact New Request Diagnostic Diagnoses Nonintractable headache, unspecified chronicity pattern, unspecified headache type Jessica Saldana, Radiology Procedures CT HEAD WO CONTRAST PAC [address] [place] [address] [place] [address] Reason for Visit Reason Comments Headache Auth/Cert Status Reason Specialty Diagnoses / Referred By Referred To Procedures Contact Contact [facility] [address] [place] [address] [place] [address] Encounter Details Date Type Department Care Team Description 07/20/2019 Emergency [facility] Jessica Saldana, PAC Nonintractable headache, Department [address] [place] [address] unspecified chronicity [address] [place] [address] [place] [address] pattern, unspecified [place], [place] [id number] headache type (Primary [phone] Dx) Allergies No Known Allergiesdocumented as of this encounter (statuses as of 07/20/2019) Medications Medication Sig Dispensed Refills Start Date End Date Status aspirin 81 mg EC Take 81 mg by 0 Active tabletIndications: mouth daily. Coronary artery disease involving [place] coronary artery of [place] heart without angina pectoris, Essential hypertension nitroglycerin 0.[address] 0.4 mg 0 Active sublingual under the tongue tabletIndications: every 5 (five) Coronary artery disease minutes as involving [place] needed for Chest coronary artery of pain. Not to [place] heart without exceed 3 doses angina pectoris, Essential hypertension budesonide-formoterol Inhale 2 Puffs 2 0 Active (SYMBICORT) 160-4.5 (two) times mcg/actuation inhaler daily. levalbuterol 45 Inhale 1-2 Puffs 0 Active mcg/actuation inhaler 3 (three) times daily as needed for Wheezing. atorvastatin 80 mg Take 1 tablet by 30 tablet 5 06/10/2019 Active tabletIndications: mouth at Coronary artery disease bedtime. involving [place] coronary artery of [place] heart without angina pectoris lisinopril 10 mg Take 1 tablet by 30 tablet 4 06/10/2019 Active tabletIndications: mouth daily. Essential hypertension, Coronary artery disease involving [place] coronary artery of [place] heart without angina pectoris clopidogrel 75 mg Take 1 tablet by 30 tablet 5 06/10/2019 Active tabletIndications: mouth daily. Coronary artery disease involving [place] coronary artery of [place] heart without angina pectoris isosorbide mononitrate TAKE 1 TABLET BY 30 tablet 2 06/18/2019 Active 30 mg 24 hr MOUTH ONCE DAILY tabletIndications: Coronary artery disease involving [place] coronary artery of [place] heart without angina pectoris carvediloL 12.5 mg Take 1 tablet by 180 tablet 4 07/09/2019 Active tabletIndications: mouth 2 (two) Coronary artery disease times daily with involving [place] meals. coronary artery of [place] heart with angina pectoris levothyroxine 75 mcg [...] chronicity pattern, (scale 4-6). unspecified headache type documented as of this encounter (statuses as of 07/20/2019) Active Problems Problem Noted Date Chest pain 06/18/2019 Coronary artery disease involving [place] heart 11/20/2017 Essential hypertension 11/20/2017 Tobacco abuse 11/20/2017 documented as of this encounter (statuses as of 07/20/2019) Social History Tobacco Use Types Packs/Day Years [...] Sign Reading Time Taken Comments Blood Pressure 107/79 07/20/2019 4:23 PM PROGRAM DIRECTOR/MORNING SHOW HOST Pulse 79 07/20/2019 4:23 PM PROGRAM DIRECTOR/MORNING SHOW HOST Temperature 36.8 C (98.3 F) 07/20/2019 2:35 PM PROGRAM DIRECTOR/MORNING SHOW HOST Respiratory Rate 18 07/20/2019 4:23 PM PROGRAM DIRECTOR/MORNING SHOW HOST Oxygen Saturation 98% 07/20/2019 4:23 PM PROGRAM DIRECTOR/MORNING SHOW HOST Inhaled Oxygen Concentration - - Weight 83.9 kg (185 lb) 07/20/2019 2:35 PM PROGRAM DIRECTOR/MORNING SHOW HOST Height 185.4 cm (6' 1") 07/20/2019 2:35 PM PROGRAM DIRECTOR/MORNING SHOW HOST Body Mass Index 24.41 07/20/2019 2:35 PM PROGRAM DIRECTOR/MORNING SHOW HOST documented in this encounter Discharge Instructions Jessica Gonzalez PAC - 07/20/2019Take ibuprofen as prescribed when you get a headache. Avoid caffeine, marijuana, alcohol and drug use. Drink plenty of clear fluids. Follow up with a primary care physician for further evaluation if your headaches continue. Return to the ER if you develop a headache that doesn't improve or is worse than you have ever had and is associated with vomiting, visual loss, weakness in your arms or legs or loss of consciousness. AttachmentsThe following attachments cannot be sent through Care Everywhere.Headache, Unspecified (Turkmen)documented in this encounter Plan of Treatment Date Type Specialty Care Team Description 07/29/2019 Office Visit Family Medicine Vilma Morris FNP [address] [place], [place] [address] Bakair Harry 07/29/2019 Office Visit Pulmonary Disease Demario Hernandez DO [address] [place] [address] 08/04/2019 Appointment Cardiac Conventions Reservationist Outpt-Pamdini Conner 08/06/2019 Office Visit Gastroenterology Karlo Farnsworth PA-C [address] [place] [address] [phone] 11/08/2019 Office Visit Cardiology Soni Galdamez MD [address] [phone] Health Maintenance Due Date Last Done Comments DTaP,Tdap,and Td Vaccines (1 - 1977 Tdap) COLONOSCOPY 2016 Zoster Recombinant Vaccine 2016 (SHINGRIX) (1 of 2) PNEUMOCOCCAL 0-64 YEARS COMBINED 07/27/2019 Postponed from 1972 SERIES (1 of 1 - PPSV23) (Alternative Guidelines) INFLUENZA VACCINE (#1) 2020 Postponed from 02/07/2019 (Refused) documented as of this encounter Procedures Procedure Name Priority Date/Time Associated Diagnosis Comments CBC WITH STAT 07/20/2019 3:42 Nonintractable Results for this DIFFERENTIAL PM PROGRAM DIRECTOR/MORNING SHOW HOST headache, unspecified procedure are in chronicity pattern, the results unspecified headache section. type CBC WITH STAT 07/20/2019 3:42 Nonintractable Results for this DIFFERENTIAL PM PROGRAM DIRECTOR/MORNING SHOW HOST headache, unspecified procedure are in chronicity pattern, the results unspecified headache section. type BASIC METABOLIC STAT 07/20/2019 3:42 Nonintractable Results for this PANEL (NA, K, CL, PM PROGRAM DIRECTOR/MORNING SHOW HOST headache, unspecified procedure are in CO2, GLUCOSE, BUN, chronicity pattern, the results CREATININE, CA) unspecified headache section. type CT HEAD WO CONTRAST STAT 07/20/2019 3:23 Nonintractable Results for this PM PROGRAM DIRECTOR/MORNING SHOW HOST headache, unspecified procedure are in chronicity pattern, the results unspecified headache section. type CONSENT/REFUSAL FOR Routine 07/20/2019 2:26 DIAGNOSIS AND PM PROGRAM DIRECTOR/MORNING SHOW HOST TREATMENT documented in this encounter Results CBC WITH DIFFERENTIAL (07/20/2019 3:42 PM PROGRAM DIRECTOR/MORNING SHOW HOST) WBC 8.72 4.20 - 10.70 [facility] 10*3/L [facility] RBC 4.88 4.26 - 5.52 [facility] 10*6/L [facility] HGB 15.1 12.2 - 16.4 [facility] g/dL HOSPITAL [facility] HCT 44.0 38.4 - 49.3 % [facility] MCV 90.2 81.7 - 95.6 fL [facility] MCH 30.9 26.1 - 32.7 pg [facility] MCHC 34.3 31.2 - 35.0 [facility] g/dL [facility] RDW-SD 41.4 38.5 - 51.6 fL [facility] RDW-CV 12.6 12.1 - 15.4 % [facility] PLT 188 150 - 328 [facility] 10*3/L [facility] MPV 11.0 9.8 - 13.0 fL [facility] NRBC/100 WBC 0.0 0.0 - 10.0 /100 [facility] WBCs [facility] NRBC x10^3 <0.01 10*3/L [facility] GRAN MAT (NEUT) % 57.0 % [facility] IMM GRAN % 0.30 % [facility] LYMPH % 27.4 % [facility] MONO % 11.9 % [facility] EOS % 2.9 % [facility] BASO % 0.5 % [facility] GRAN MAT x10^3(ANC) 4.97 1.99 - 6.95 [facility] 10*3/uL [facility] IMM GRAN x10^3 0.03 0.00 - 0.06 [facility] 10*3/uL [facility] LYMPH x10^3 2.39 1.09 - 3.23 [facility] 10*3/uL [facility] MONO x10^3 1.04 (H) 0.36 - 1.02 [facility] 10*3/uL [facility] EOS x10^3 0.25 0.06 - 0.53 [facility] 10*3/uL [facility] BASO x10^3 0.04 0.01 - 0.09 [facility] 10*3/uL [facility] Specimen Blood - VENOUS Performing Organization Address City/State/Zipcode Phone Number [facility] CLIA: [id number], [address] [place] [address] BASIC METABOLIC PANEL (NA, K, CL, CO2, GLUCOSE, BUN, CREATININE, CA) (2019 3:42 PM PROGRAM DIRECTOR/MORNING SHOW HOST) NA 140 135 - 145 mmol/L [facility] K 4.0 3.5 - 5.0 mmol/L [facility] CL 106 98 - 108 mmol/L [facility] CO2 TOTAL 27 23 - 31 mmol/L [facility] AGAP 7 2 - 16 [facility] BUN 11 7 - 23 mg/dL [facility] GLUCOSE 92 70 - 110 mg/dL [facility] CREATININE 0.64 0.60 - 1.25 [facility] mg/dL [facility] CALCIUM 9.9 8.6 - 10.6 mg/dL [facility] eGFR Calculation 130.8 mL/min/1.73m2 [facility] (Non-) [facility] eGFR Calculation 158.6 mL/min/1.73m2 [facility] () [facility] Specimen Blood - VENOUS Narrative Performed At Association of Glomerular Filtration Rate (GFR) [facility] and Staging of Kidney Disease* + + +- + | GFR (mL/min/1.73 m2) | With Kidney Damage | Without Kidney Damage + + +- + | >90 | Stage one | Normal + + +- + | 60-89 | Stage two | Decreased GFR + + +- + | 30-59 | Stage three | Stage three + + +- + | 15-29 | Stage four | Stage four + + +- + | <15 (or dialysis) | Stage five | Stage five + + +- + *Each stage assumes the associated GFR level has been in effect for at least three months. Stages 1 to 5, with or without kidney disease, indicate chronic kidney disease. Notes: Determination of stages one and two (with eGFR >59mL/min/1.73 m2) requires estimation of kidney damage for at least three months as defined by structural or functional abnormalities of the kidney, manifested by either: Pathological abnormalities or Markers of kidney damage (including abnormalities in the composition of the blood or urine or abnormalities in imaging tests). Performing Organization Address City/State/Zipcode Phone Number [facility] CLIA: [id number], [address] [place] [address] HEAD WO CONTRAST (07/20/2019 3:23 PM PROGRAM DIRECTOR/MORNING SHOW HOST) Specimen Impressions Performed At PACS/VR/DOSE No acute intracranial abnormality. Preliminary Report Dictated by Resident: Stephanie Christopher MD., have reviewed this study and agree with the above report. Narrative Performed At CT HEAD WO CONTRAST PACS/VR/DOSE HISTORY: Headache, acute, normal neuro exam COMPARISON: None. TECHNIQUE: Helical CT scan of the head was performed without intervenous contrast. Coronal and sagittal reconstructions were then generated. FINDINGS: The ventricles and cerebral sulci are normal in caliber and configuration. No hydrocephalus, midline shift or pathological extra-axial fluid collection is present. The basal cisterns are unremarkable. There is no acute intracranial hemorrhage or significant mass effect. No parenchymal attenuation abnormality. The dunn-white matter differentiation is preserved. The mastoid air cells and paranasal air sinuses are clear. The calvarium and central skull base are unremarkable. Procedure Note [facility], Radiant Results Inft User - 07/20/2019 3:48 PM PROGRAM DIRECTOR/MORNING SHOW HOST CT HEAD WO CONTRAST HISTORY: Headache, acute, normal neuro exam COMPARISON: None. TECHNIQUE: Helical CT scan of the head was performed without intervenous contrast. Coronal and sagittal reconstructions were then generated. FINDINGS: The ventricles and cerebral sulci are normal in caliber and configuration. No hydrocephalus, midline shift or pathological extra-axial fluid collection is present. The basal cisterns are unremarkable. There is no acute intracranial hemorrhage or significant mass effect. No parenchymal attenuation abnormality. The dunn-white matter differentiation is preserved. The mastoid air cells and paranasal air sinuses are clear. The calvarium and central skull base are unremarkable. IMPRESSION No acute intracranial abnormality. Preliminary Report Dictated by Resident: Stephanie Christopher MD., have reviewed this study and agree with the above report. Performing Organization Address City/State/Zipcode Phone Number PACS/VR/DOSE documented in this encounter Visit Diagnoses Diagnosis Nonintractable headache, unspecified chronicity pattern, unspecified headache type - Primary documented in this encounter Insurance Payer Benefit Plan Subscriber ID Effective Phone Address Type / Group Dates MEKHIGORGE MEKHIGORGE [id number] 2017-Prese [phone] [facility] PRIMARY CARE PRIMARY CARE nt [address] [place] [address] [place] H[place] COCarmela [id number] 2017-[place] [address] [place] [address] documented as of this encounter
--- OUTSIDE RECORDS SUMMARY | 2019-07-26 14:40 | XMS REPORT | Summary of Care ---
:1965 Author Organization [facility] Address [address] [place] [address] Care Team Providers Name Role Phone Vilma Morris GUERRERO Primary Care Provider Reason for Visit Reason Comments Rx Concern/Question Encounter Details Date Type Department Care Team Description 07/19/2019 Telephone [facility] Cardiology- Soni Galdamez, Rx Concern/Question Jay PACHECO [address], [address] MEE[address]I [address] [place] [address] [place], [place] [phone] [address] Allergies No Known Allergiesdocumented as of this encounter (statuses as of 07/26/2019) Medications Medication Sig Dispensed Refills Start Date End Date Status aspirin 81 mg EC Take 81 mg 0 Active tabletIndications: by mouth Coronary artery daily. disease involving [place] coronary artery of [place] heart without angina pectoris, Essential hypertension nitroglycerin 0.4 Place 0.4 mg 0 Active mg sublingual under the tabletIndications: tongue every Coronary artery 5 (five) disease involving minutes as [place] coronary needed for artery of [place] Chest pain. heart without Not to angina pectoris, exceed 3 Essential doses hypertension budesonide-formoter Inhale 2 0 Active ol (SYMBICORT) Puffs 2 160-4.5 (two) times mcg/actuation daily. inhaler levalbuterol 45 Inhale 1-2 0 Active mcg/actuation Puffs 3 inhaler (three) times daily as needed for Wheezing. atorvastatin 80 mg Take 1 30 tablet 5 06/10/2019 Active tabletIndications: tablet by Coronary artery mouth at disease involving bedtime. [place] coronary artery of [place] heart without angina pectoris lisinopril 10 mg Take 1 30 tablet 4 06/10/2019 Active tabletIndications: tablet by Essential mouth daily. hypertension, Coronary artery disease involving [place] coronary artery of [place] heart without angina pectoris clopidogrel 75 mg Take 1 30 tablet 5 06/10/2019 Active tabletIndications: tablet by Coronary artery mouth daily. disease involving [place] coronary artery of [place] heart without angina pectoris isosorbide TAKE 1 30 tablet 2 06/18/2019 Active mononitrate 30 mg TABLET BY 24 hr MOUTH ONCE tabletIndications: DAILY Coronary artery disease involving [place] coronary artery of [place] heart without angina pectoris levothyroxine 75 Take 1 30 tablet 5 07/13/2019 Active mcg tablet by tabletIndications: mouth every Hypothyroidism morning. (acquired) levothyroxine 50 Take 1 30 tablet 5 07/16/2019 Active mcg tablet by tabletIndications: mouth every Hypothyroidism morning. (acquired) metoprolol Take 1 60 tablet 2 07/22/2019 Active succinate XL 25 mg tablet by 24 hr tablet mouth every 12 (twelve) hours. carvediloL 12.5 mg Take 1 180 tablet 4 07/09/2019 Discontinued tabletIndications: tablet by 0 (Alternate Coronary artery mouth 2 therapy) disease involving (two) times [place] coronary daily with artery of [place] meals. heart with angina pectoris documented as of this encounter (statuses as of 07/26/2019) Active Problems Problem Noted Date Chest pain 06/18/2019 Coronary artery disease involving [place] heart 11/20/2017 Essential hypertension 11/20/2017 Tobacco abuse 11/20/2017 documented as of this encounter (statuses as of 07/26/2019) Social History Tobacco Use Types Packs/Day Years [...] Office Visit Pulmonary Disease Demario Hernandez DO [address] [place] [address] 08/04/2019 Appointment Cardiac Food Counter Worker Outpt-Padmini Conner 08/06/2019 Office Visit Gastroenterology Karlo Farnsworth PA-C [address] [place] [address] [phone] 11/08/2019 Office Visit Cardiology Soni Galdamez MD [address] [place] [phone] Health Maintenance Due Date Last Done [...] Address Type / Group Dates HARRY MCDONALD [id number] 2017-Dany [phone] [facility] PRIMARY CARE PRIMARY CARE nt [address] [place] [address] [place] [id number] [address]-[place] [address] C I H C nt [address] [place] [address] documented as of this encounter
--- OUTSIDE RECORDS SUMMARY | 2019-07-26 14:40 | XMS REPORT | Summary of Care ---
:1965 Author Organization [facility] Address [address] [place] [id number] Care Team Providers Name Role Phone Vilma Morris GUERRERO Primary Care Provider Reason for Visit Reason Comments Rx Concern/Question Encounter Details Date Type Department Care Team Description 07/19/2019 Telephone [facility] Cardiology- Soni Galdamez, Rx Concern/Question Jay PACHECO [address], [address] [place] [address] [place], [place] [phone] Allergies No Known Allergiesdocumented as of this encounter (statuses as of 07/26/2019) Medications Medication Sig Dispensed Refills Start Date End Date Status aspirin 81 mg EC Take 81 mg 0 Active tabletIndications: by mouth Coronary artery daily. disease involving [place] coronary artery of [place] heart without angina pectoris, Essential hypertension nitroglycerin 0.[address] 0.4 mg 0 Active mg sublingual under the tabletIndications: tongue every Coronary artery 5 (five) disease involving minutes as [place] coronary needed for artery of [place] Chest pain. heart without Not to angina [...] mouth at disease involving bedtime. [place] coronary artery of [place] heart without angina pectoris lisinopril 10 mg Take 1 30 tablet 4 06/10/2019 Active tabletIndications: tablet by Essential mouth daily. hypertension, Coronary artery disease involving [place] coronary artery of [place] heart without angina pectoris clopidogrel 75 mg Take 1 30 tablet 5 06/10/2019 Active tabletIndications: tablet by Coronary artery mouth daily. disease involving [place] coronary artery of [place] heart without angina pectoris isosorbide TAKE 1 30 tablet 2 06/18/2019 Active mononitrate 30 mg TABLET BY 24 hr MOUTH ONCE tabletIndications: DAILY Coronary artery disease involving [place] coronary artery of [place] heart without angina pectoris levothyroxine 75 Take [...] therapy) disease involving (two) times [place] coronary daily with artery of [place] meals. heart with angina pectoris documented as of this encounter (statuses as of 07/26/2019) Active Problems Problem Noted Date Chest pain 06/18/2019 Coronary artery disease involving [place] heart 11/20/2017 Essential hypertension 11/20/2017 Tobacco abuse [...] Office Visit Pulmonary Disease Demario Hernandez DO [address] [place] [address] 08/04/2019 Appointment Cardiac Metal Spray Operator Outpt-Padmini Conner 08/06/2019 Office Visit Gastroenterology Karlo Farnsworth PA-C [address] [place] [address] [phone] 11/08/2019 Office Visit Cardiology Soni Galdamez MD [address] [place] [address] [place] [phone] Health Maintenance Due Date Last Done [...] Address Type / Group Dates HARRY MCDONALD [id number] 2016-Dany [phone] [facility] [address] [place] [address] [place] [phone] [address] [address] [address] [place] [address] documented as of this encounter
[2019-07-26] MEDS ORDERED: HYDROCODONE/APAP 10/325 TAB ONE (15:23)
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
--- NOTE | 2019-07-26 16:17 | RAD REPORT ---
EXAM DESCRIPTION: RAD - Knee Left 3 View - 07/26/2019 4:12 pm CLINICAL HISTORY: PAIN COMPARISON: No comparisons FINDINGS: No acute fracture or dislocation is seen.
[2019-07-26 17:09] VITALS: BP 121/85; TEMP 98.3; O2SAT 98
== END 2019-07-26 16:19 | disposition home or self-care (01) ==
LOC: ER 14:32
DX: M25.512 Pain in left shoulder (principal); M25.562 Pain in left knee; V43.52XA Car driver injured in collision with other type car in traffic accident, initial encounter; Y93.89 Activity, other specified; Y92.410 Unspecified street and highway as the place of occurrence of the external cause
CPT/HCPCS: 71045; 99283

== ENCOUNTER 2019-08-15 16:46 | Emergency (ER) | payer SELFPAY ==
--- OUTSIDE RECORDS SUMMARY | 2019-08-15 16:49 | XMS REPORT ---
:1965 [facility] Address [address] [place] [address] Care Team Providers Name Role Phone PRADEEP STEEL Unavailable Unavailable Problems This patient has no known problems. Allergies, Adverse Reactions, Alerts This patient has no known allergies or adverse reactions. Medications This patient has no known medications. Results Test Description Test Time Test Comments Text Results Atomic Results Result Comments BLOOD CULTURE 2017-10-02 12:00:00 Test Item Value Reference Range Comments CULTURE (BEAKER) (test mdov=3255) No growth in 5 days BLOOD [id number] 12:00:00 Test Item Value Reference Range Comments CULTURE (BEAKER) (test wtgj=0679) No growth in 5 days [id number] 07:30:00 Test Item Value Reference Range Comments MAGNESIUM (BEAKER) (test mabf=432) 1.9 mg/dL 1.6-2.6 BASIC METABOLIC [id number] 07:30:00 Test Item Value Reference Range Comments SODIUM (BEAKER) (test 137 meq/L 136-145 fwjc=607) POTASSIUM (BEAKER) (test 4.0 meq/L 3.5-5.1 mfjj=284) CHLORIDE (BEAKER) (test 108 meq/L 98-107 xtfl=876) CO2 (BEAKER) (test 21 meq/L 22-29 uddr=935) BLOOD UREA NITROGEN 12 mg/dL 7-21 (BEAKER) (test cwgl=893) CREATININE (BEAKER) (test 0.69 mg/dL 0.57-1.25 apum=682) GLUCOSE RANDOM (BEAKER) 93 mg/dL 70-105 (test wefo=056) CALCIUM (BEAKER) (test 9.4 mg/dL 8.4-10.2 dhao=930) EGFR (BEAKER) (test 121 mL/min/1.73 sq m ESTIMATED GFR IS NOT rijt=2397) ACCURATE CREATININE CLEARANCE IN PREDICTING GLOMERULAR FILTRATION RATE. ESTIMATED GFR IS NOT APPLICABLE FOR DIALYSIS PATIENTS. CBC (HEMOGRAM ONLY)2017-09-28 07:02:00 Test Item Value Reference Range Comments WHITE BLOOD CELL COUNT (BEAKER) (test jcxo=809) 11.9 K/ L 3.5-10.5 RED BLOOD CELL COUNT (BEAKER) (test tnkm=584) 5.10 M/ L 4.63-6.08 HEMOGLOBIN (BEAKER) (test hjmw=850) 15.1 GM/DL 13.7-17.5 HEMATOCRIT (BEAKER) (test pklb=031) 47.4 % 40.1-51.0 MEAN CORPUSCULAR VOLUME (BEAKER) (test zthv=928) 92.9 fL 79.0-92.2 MEAN CORPUSCULAR HEMOGLOBIN (BEAKER) (test 29.6 pg 25.7-32.2 mhpf=543) MEAN CORPUSCULAR HEMOGLOBIN CONC (BEAKER) (test 31.9 GM/DL 32.3-36.5 ngij=709) RED CELL DISTRIBUTION WIDTH (BEAKER) (test 12.6 % 11.6-14.4 xauf=210) PLATELET COUNT (BEAKER) (test uodf=068) 178 K/CU MM 150-450 MEAN PLATELET VOLUME (BEAKER) (test oihq=567) 11.8 fL 9.4-12.4 NUCLEATED RED BLOOD CELLS (BEAKER) (test 0 /100 WBC 0-0 prbn=585) TROPONIN [id number] 22:02:00 Test Item Value Reference Range Comments TROPONIN I (BEAKER) (test mkcj=361) 63.70 ng/mL 0.00-0.03 Troponin I (TnI) levels [...] neurological disease, and persistent tachyarrhythmia.TSH/FREE T4 IF [id number] 16:05 :00 Test Item Value Reference Range Comments THYROID STIMULATING HORMONE (BEAKER) (test 1.30 uIU/mL 0.35-4.94 ddeh=634) Draw next time labs are dueKENYANIN [id number] 14:46:00 Test Item Value Reference Range Comments TROPONIN I (BEAKER) (test njit=478) 100.07 ng/mL 0.00-0.03 Troponin I (TnI) levels [...] acidosis, acute neurological disease, and persistent tachyarrhythmia.HEMOGLOBIN [id number] 12:38:00 Test Item Value Reference Range Comments HEMOGLOBIN A1C (BEAKER) (test ptyn=530) 5.2 % 4.3-6.1 RAPID DRUG SCREEN, [id number] 10:53:00 Test Item Value Reference Range Comments BARBITURATE URINE (BEAKER) (test dnbe=833) Negative Negative BENZODIAZEPINE SCREEN URINE (BEAKER) (test Positive Negative kkqv=244) COCAINE (METAB.) SCREEN (BEAKER) (test njbx=3685) Negative Negative METHADONE SCREEN (BEAKER) (test bhzw=8986) Negative Negative OPIATE SCREEN URINE (BEAKER) (test zjfj=050) Positive Negative CANNABINOID SCREEN URINE (BEAKER) (test ptpv=880) Negative Negative AMPH/METHAMPH SCREEN (BEAKER) (test yahm=7019) Negative Negative PHENCYCLIDINE SCREEN URINE (BEAKER) (test sfow=380) Negative Negative OXYCODONE SCREEN URINE (BEAKER) (test scba=8285) Negative Negative DRUG CUTOFF CONC.Cocaine 300 ng/mL Cannabinoid 50 ng/mL Benzodiazepine 200 ng/mLBarbiturate 200 ng/ mLPhencyclidine 25 ng/mLOpiate 300 ng/mLMethadone 300 ng/mLAmphetamine/ 1000 ng/mL MethamphetamineOxycodone 300 ng/mLThis assay provides an unconfirmed qualitative test result for the clinical management of patients in emergency situations. Chain of custody not maintained. Some mvmm-hxv-avymdhn medications, as well as adulterants, may cause inaccurate results. Clinical correlation should be applied. A more comprehensive drug screen or confirmation of a detected drug may be performed upon request.LIPID [id number] 09:21:00 Test Item Value Reference Range Comments TRIGLYCERIDES (BEAKER) (test zvab=577) 128 mg/dL CHOLESTEROL (BEAKER) (test ttcq=566) 181 mg/dL HDL CHOLESTEROL (BEAKER) (test pvfd=873) 32 mg/dL LDL CHOLESTEROL CALCULATED (BEAKER) (test 123 mg/dL nlus=985) Triglyceride Reference Range: Low Risk <150 Borderline 150- 199 High Risk 200-499 Very High Risk >=500Cholesterol Reference Range: Low Risk <200 Borderline 200-239 High Risk > 240HDL Cholesterol Reference Range: Low Risk >=60 High Risk <40LDL Cholesterol Reference Range: Optimal <100 Near Optimal 100-129 Borderline 130-159 High 160-189 Very High >=190TROPONIN [id number] 07:55:00 Test Item Value Reference Range Comments TROPONIN I (BEAKER) (test bzva=736) 72.42 ng/mL 0.00-0.03 Troponin I (TnI) levels [...] failure, acidosis, acute neurological disease, and persistent tachyarrhythmia.PT/[id number] 06:39:00 Test Item Value Reference Range Comments PROTIME (BEAKER) (test hzdz=291) 13.2 seconds 11.7-14.7 INR (BEAKER) (test zbmr=899) 1.0 <=5.9 PARTIAL THROMBOPLASTIN TIME (BEAKER) (test 29.7 seconds 22.5-36.0 huxw=101) RECOMMENDED COUMADIN/WARFARIN INR THERAPY RANGESSTANDARD DOSE: 2.0 - 3.0 Includes: PROPHYLAXIS forvenous thrombosis, systemic embolization; TREATMENT for venous thrombosis and/or pulmonary embolus.HIGH RISK: Target INR is 2.5-3.5 for patients with mechanical heart valves.URINALYSIS W/ [id number] 06 :31:00 Test Item Value Reference Range Comments COLOR (BEAKER) (test vihl=487) Yellow CLARITY (BEAKER) (test qmvo=796) Clear SPECIFIC GRAVITY UA (BEAKER) (test > 1.001-1.035 fosk=925) PH UA (BEAKER) (test jgfq=240) 6.5 5.0-8.0 PROTEIN UA (BEAKER) (test nnki=698) 10 mg/dL Negative GLUCOSE UA (BEAKER) (test gytv=878) Negative Negative KETONES UA (BEAKER) (test lrmu=508) 20 mg/dL Negative BILIRUBIN UA (BEAKER) (test Negative Negative ropv=674) BLOOD UA (BEAKER) (test pvfq=014) Negative Negative NITRITE UA (BEAKER) (test pvxy=160) Negative Negative LEUKOCYTE ESTERASE UA (BEAKER) Negative Negative (test lzgy=482) UROBILINOGEN UA (BEAKER) (test 0.2 mg/dL 0.2-1.0 swsn=262) RBC UA (BEAKER) (test rbot=722) 1 /HPF WBC UA (BEAKER) (test ncsh=660) 1 /HPF MUCUS (BEAKER) (test cjck=4064) Rare SOURCE(BEAKER) (test eccw=7483) Urine, Straight Catheter BASIC METABOLIC [id number] 06:09:00 Test Item Value Reference Range Comments SODIUM (BEAKER) (test 136 meq/L 136-145 skxo=286) POTASSIUM (BEAKER) (test 4.2 meq/L 3.5-5.1 awhz=302) CHLORIDE (BEAKER) (test 105 meq/L 98-107 nrts=427) CO2 (BEAKER) (test 23 meq/L 22-29 hluy=999) BLOOD UREA NITROGEN 10 mg/dL 7-21 (BEAKER) (test igya=213) CREATININE (BEAKER) (test 0.74 mg/dL 0.57-1.25 ycsw=017) GLUCOSE RANDOM (BEAKER) 120 mg/dL 70-105 (test vkmy=241) CALCIUM (BEAKER) (test 8.8 mg/dL 8.4-10.2 wadg=396) EGFR (BEAKER) (test 112 mL/min/1.73 sq m ESTIMATED GFR IS NOT khyj=6984) ACCURATE CREATININE CLEARANCE IN PREDICTING GLOMERULAR FILTRATION RATE. ESTIMATED GFR IS NOT APPLICABLE FOR DIALYSIS PATIENTS. CBC W/PLT COUNT & AUTO [id number] 05:57:00 Test Item Value Reference Range Comments WHITE BLOOD CELL COUNT (BEAKER) (test ximr=980) 15.3 K/ L 3.5-10.5 RED BLOOD CELL COUNT (BEAKER) (test qvja=902) 4.56 M/ L 4.63-6.08 HEMOGLOBIN (BEAKER) (test hinb=139) 13.8 GM/DL 13.7-17.5 HEMATOCRIT (BEAKER) (test dvzf=097) 42.8 % 40.1-51.0 MEAN CORPUSCULAR VOLUME (BEAKER) (test ddvu=505) 93.9 fL 79.0-92.2 MEAN CORPUSCULAR HEMOGLOBIN (BEAKER) (test 30.3 pg 25.7-32.2 mbhb=308) MEAN CORPUSCULAR HEMOGLOBIN CONC (BEAKER) (test 32.2 GM/DL 32.3-36.5 jpfh=890) RED CELL DISTRIBUTION WIDTH (BEAKER) (test 12.8 % 11.6-14.4 ycth=191) PLATELET COUNT (BEAKER) (test pndx=330) 181 K/CU MM 150-450 MEAN PLATELET VOLUME (BEAKER) (test nxds=083) 11.5 fL 9.4-12.4 NUCLEATED RED BLOOD CELLS (BEAKER) (test 0 /100 WBC 0-0 wmqz=364) NEUTROPHILS RELATIVE PERCENT (BEAKER) (test 75 % xfjl=298) LYMPHOCYTES RELATIVE PERCENT (BEAKER) (test 12 % mczz=849) MONOCYTES RELATIVE PERCENT (BEAKER) (test 11 % uaoa=498) EOSINOPHILS RELATIVE PERCENT (BEAKER) (test 1 % yrln=994) BASOPHILS RELATIVE PERCENT (BEAKER) (test 0 % ylye=380) NEUTROPHILS ABSOLUTE COUNT (BEAKER) (test 11.48 K/ L 1.78-5.38 nryt=278) LYMPHOCYTES ABSOLUTE COUNT (BEAKER) (test 1.88 K/ L 1.32-3.57 iaah=048) MONOCYTES ABSOLUTE COUNT (BEAKER) (test 1.73 K/ L 0.30-0.82 ksgr=297) EOSINOPHILS ABSOLUTE COUNT (BEAKER) (test 0.12 K/ L 0.04-0.54 xmes=932) BASOPHILS ABSOLUTE COUNT (BEAKER) (test 0.04 K/ L 0.01-0.08 ysiz=676) IMMATURE GRANULOCYTES-RELATIVE PERCENT ([facility]) 1 % 0-1 (test oggn=5134) [id number] 01:38:00 Test Item Value Reference Range Comments ACTIVATED CLOTTING TIME [address] [facility] [address] [facility] (BEAKER) (test smqb=742) [place] [address] [id number] 01:38:00 Test Item Value Reference Range Comments ACTIVATED CLOTTING TIME [address] [facility] [address] [facility] (test qhmp=899) [facility] [address] RAD, CHEST, 1 VIEW, NON [id number] 23:46:00Reason for exam:->STEMIShould this be performed at the bedside?->YesFINAL REPORT History: MS. Comparison: None. Findings: A single view of [...] MDReport Verified Date/Time: 09/26/2017 23:46:29 Reading Location: [address] Reading Room TROPONIN [id number] 22:47:00 Test Item Value Reference Range Comments TROPONIN I (RUBIA) (test vebm=254) 56.52 ng/mL 0.00-0.03 Troponin I (TnI) levels [...] failure, acidosis, acute neurological disease, and persistent tachyarrhythmia.[id number] 22:39:00 Test Item Value Reference Range Comments PARTIAL THROMBOPLASTIN TIME (BEAKER) (test > seconds 22.5-36.0 yrzq=800) B-TYPE NATRIURETIC FACTOR (BNP)2017-09-26 22:27:00 Test Item Value Reference Range Comments B-TYPE NATRIURETIC PEPTIDE (BEAKER) (test pand=677) 71 pg/mL 0-100 [id number] 22:20:00 Test Item Value Reference Range Comments MAGNESIUM (BEAKER) (test 1.9 mg/dL 1.6-2.6 Specimen slightly hemolyzed xxoz=225) [id number] 22:20:00 Test Item Value Reference Range Comments PHOSPHORUS (BEAKER) (test 3.6 mg/dL 2.3-4.7 Specimen slightly hemolyzed ajvu=965) BASIC METABOLIC [id number] 22:20:00 Test Item Value Reference Range Comments SODIUM (BEAKER) (test 136 meq/L 136-145 wgfb=578) POTASSIUM (BEAKER) (test 4.0 meq/L 3.5-5.1 Specimen slightly nqts=102) hemolyzed CHLORIDE (BEAKER) (test 107 meq/L 98-107 mesc=602) CO2 (BEAKER) (test 19 meq/L 22-29 iscs=987) BLOOD UREA NITROGEN 12 mg/dL 7-21 (BEAKER) (test prdz=789) CREATININE (BEAKER) (test 0.68 mg/dL 0.57-1.25 Specimen slightly anpa=568) hemolyzed GLUCOSE RANDOM (BEAKER) 122 mg/dL 70-105 (test havr=855) CALCIUM (BEAKER) (test 8.6 mg/dL 8.4-10.2 ahkm=012) EGFR (BEAKER) (test 123 mL/min/1.73 sq m ESTIMATED GFR IS NOT qxol=6098) ACCURATE CREATININE CLEARANCE IN PREDICTING GLOMERULAR FILTRATION RATE. ESTIMATED GFR IS NOT APPLICABLE FOR DIALYSIS PATIENTS. HEPATIC FUNCTION [id number] 22:20:00 Test Item Value Reference Range Comments TOTAL PROTEIN (BEAKER) (test 6.6 gm/dL 6.0-8.3 Specimen slightly hemolyzed tsmn=334) ALBUMIN (BEAKER) (test 3.9 g/dL 3.5-5.0 Specimen slightly hemolyzed rhac=5558) BILIRUBIN TOTAL (BEAKER) (test 0.5 mg/dL 0.2-1.2 Specimen slightly hemolyzed rqel=579) BILIRUBIN DIRECT (BEAKER) (test 0.2 mg/dL 0.1-0.5 Specimen slightly hemolyzed axxz=817) ALKALINE PHOSPHATASE (BEAKER) 65 U/L 40-150 (test dqfo=213) AST (SGOT) (BEAKER) (test 214 U/L 5-34 Specimen slightly hemolyzed zsvc=447) ALT (SGPT) (BEAKER) (test 39 U/L 6-55 Specimen slightly hemolyzed ongm=653) PROTHROMBIN [id number] 22:19:00 Test Item Value Reference Range Comments PROTIME (BEAKER) (test doqc=699) 15.5 seconds 11.7-14.7 INR (BEAKER) (test tumc=236) 1.2 <=5.9 RECOMMENDED COUMADIN/WARFARIN INR THERAPY RANGESSTANDARD DOSE: 2.0 - 3.0 Includes: PROPHYLAXIS forvenous thrombosis, systemic embolization; TREATMENT for venous thrombosis and/or pulmonary embolus.HIGH RISK: Target INR is 2.5-3.5 for patients with mechanical heart valves.CBC W/PLT COUNT & AUTO [id number] 22:03:00 Test Item Value Reference Range Comments WHITE BLOOD CELL COUNT (BEAKER) (test ticn=862) 15.7 K/ L 3.5-10.5 RED BLOOD CELL COUNT (BEAKER) (test fkax=555) 4.35 M/ L 4.63-6.08 HEMOGLOBIN (BEAKER) (test ibao=070) 13.4 GM/DL 13.7-17.5 HEMATOCRIT (BEAKER) (test wkvy=644) 40.1 % 40.1-51.0 MEAN CORPUSCULAR VOLUME (BEAKER) (test shhs=995) 92.2 fL 79.0-92.2 MEAN CORPUSCULAR HEMOGLOBIN (BEAKER) (test 30.8 pg 25.7-32.2 vzed=931) MEAN CORPUSCULAR HEMOGLOBIN CONC (BEAKER) (test 33.4 GM/DL 32.3-36.5 ijlc=172) RED CELL DISTRIBUTION WIDTH (BEAKER) (test 12.6 % 11.6-14.4 keue=725) PLATELET COUNT (BEAKER) (test xoxg=225) 177 K/CU MM 150-450 MEAN PLATELET VOLUME (BEAKER) (test indf=158) 11.4 fL 9.4-12.4 NUCLEATED RED BLOOD CELLS (BEAKER) (test 0 /100 WBC 0-0 lnub=146) NEUTROPHILS RELATIVE PERCENT (BEAKER) (test 80 % phwp=063) LYMPHOCYTES RELATIVE PERCENT (BEAKER) (test 11 % zozl=849) MONOCYTES RELATIVE PERCENT (BEAKER) (test 7 % evrv=547) EOSINOPHILS RELATIVE PERCENT (BEAKER) (test 1 % aznc=369) BASOPHILS RELATIVE PERCENT (BEAKER) (test 0 % drsx=655) NEUTROPHILS ABSOLUTE COUNT (BEAKER) (test 12.50 K/ L 1.78-5.38 kazg=029) LYMPHOCYTES ABSOLUTE COUNT (BEAKER) (test 1.78 K/ L 1.32-3.57 cwrt=670) MONOCYTES ABSOLUTE COUNT (BEAKER) (test 1.08 K/ L 0.30-0.82 xoxx=276) EOSINOPHILS ABSOLUTE COUNT (BEAKER) (test 0.14 K/ L 0.04-0.54 cjqk=807) BASOPHILS ABSOLUTE COUNT (BEAKER) (test 0.06 K/ L 0.01-0.08 wwks=571) IMMATURE GRANULOCYTES-RELATIVE PERCENT (BEAKER) 1 % 0-1 (test ajss=3924) [id number] 21:55:00 Test Item Value Reference Range Comments ACTIVATED CLOTTING TIME 208 sec TESTED AT [place] [address] [address] (BEAKER) (test atoz=754) [place] [address] [id number] 19:50:00 Test Item Value Reference Range Comments ACTIVATED CLOTTING TIME [address] [facility] [address] (BEAKER) (test jozm=457) [place] [address]
--- OUTSIDE RECORDS SUMMARY | 2019-08-15 16:54 | XMS REPORT | Summary of Care ---
:1965 Author Organization [facility] Address [address] [place] [address] Care Team Providers Name Role Phone Vilma Morris GUERRERO Primary Care Provider Reason for Referral (Routine) Status Reason Specialty Diagnoses / Referred By Referred To Procedures Contact Contact New Request Pulmonary Function Diagnoses Dyspnea on exertion Demario Hernandez Technologist Procedures SIX MINUTE WALK Preferred Location: [facility] DO [address] [place] [phone] (Routine) Status Reason Specialty Diagnoses / Referred By Referred To Procedures Contact Contact New Request Pulmonary Function Diagnoses Dyspnea on exertion Demario Hernandez Technologist Procedures DIAGNOSTIC PROCEDURE Preferred Location: [facility] DO [address] [place] [phone] Reason for Visit Reason Comments New Patient Hospital F/U COPD Cough with light yellow colored phlegm Shortness of Breath Encounter Details Date Type Department Care Team Description 07/29/2019 Office Visit [facility] Demario Hernandez DO Dyspnea on exertion Pulmonary Clinic [address] [place] [address] (Primary Dx) [address] [place] [address] , [address] [phone] Allergies No Known Allergiesdocumented as of this encounter (statuses as of 07/29/2019) Medications Medication Sig Dispensed Refills Start Date End Date Status aspirin 81 mg EC Take 81 mg by 0 Active tabletIndications: mouth daily. Coronary artery disease involving te-moak coronary artery of te-moak heart without angina pectoris, Essential hypertension nitroglycerin 0.[address] 0.4 mg 0 Active sublingual under the tabletIndications: tongue every Coronary artery 5 (five) disease involving minutes as te-moak coronary needed for artery of te-[place]ak Chest pain. heart without angina Not to [...] mouth at Coronary artery bedtime. disease involving te-moak coronary artery of te-[place] heart without angina pectoris lisinopril 10 mg Take 1 tablet 30 tablet 4 06/10/2019 Active tabletIndications: by mouth Essential daily. hypertension, Coronary artery disease involving te-moak coronary artery of te-moak heart without angina pectoris clopidogrel 75 mg Take 1 tablet 30 tablet 5 06/10/2019 Active tabletIndications: by mouth Coronary artery daily. disease involving te-moak coronary artery of te-[place] heart without angina pectoris isosorbide TAKE 1 TABLET 30 tablet 2 06/18/2019 Active mononitrate 30 mg 24 BY MOUTH ONCE hr DAILY tabletIndications: Coronary artery disease involving te-moak coronary artery of te-moak heart without angina pectoris levothyroxine 50 mcg Take 1 tablet 30 tablet 5 07/16/2019 Active tabletIndications: by mouth Hypothyroidism every (acquired) morning. ibuprofen 600 mg Take 1 tablet 20 tablet 0 07/20/2019 Active tabletIndications: by mouth Nonintractable every 8 headache, (eight) hours unspecified as needed for chronicity pattern, Pain (scale unspecified headache 4-6). type butalbital-acetamino Take 1 tablet 28 tablet 0 07/22/2019 Active phen-caff 50-325-40 by mouth mg every 4 tabletIndications: (four) hours Intractable episodic as needed for cluster headache Pain (scale 4-6). metoprolol succinate Take 1 tablet 60 tablet 2 07/22/2019 Active XL 25 mg 24 hr by mouth tablet every 12 (twelve) hours. levothyroxine 75 mcg Take 1 tablet 30 tablet 5 07/13/2019 07/29/2019 Discontinued tabletIndications: by mouth Hypothyroidism every (acquired) morning. documented as of this encounter (statuses as of 07/29/2019) Active Problems Problem Noted Date Chest pain 06/18/2019 Coronary artery disease involving te-moak heart 11/20/2017 Essential hypertension 11/20/2017 Tobacco abuse 11/20/2017 documented as of this encounter (statuses as of 07/29/2019) Social History Tobacco Use Types Packs/Day Years [...] Sign Reading Time Taken Comments Blood Pressure 106/73 07/29/2019 2:21 PM DIRECTOR OF PRIMARY Pulse 87 07/29/2019 2:21 PM DIRECTOR OF PRIMARY Temperature - - Respiratory Rate 19 07/29/2019 2:21 PM DIRECTOR OF PRIMARY Oxygen Saturation 98% 07/29/2019 2:21 PM DIRECTOR OF PRIMARY Inhaled Oxygen Concentration - - Weight 85 kg (187 lb 4.8 oz) 07/29/2019 2:21 PM DIRECTOR OF PRIMARY Height 185.4 cm (6' 1") 07/29/2019 2:21 PM DIRECTOR OF PRIMARY Body Mass Index 24.71 07/29/2019 2:21 PM DIRECTOR OF PRIMARY documented in this encounter Progress Notes Demario Hernandez, DO - 07/29/2019 2:20 PM CST [facility] Interventional Pulmonology [facility] Chief Complaint: Evaluation for COPD History of Present Illness: Garcia Matta is a 54 year old male here for evaluation for COPD. Has shortness of breath with exertion, including with routine exertion. Improved with rest. No non-exertional dyspnea for most part. Does have cough. Uses pro Air and Symbicort which help. Past Medical History: has a past medical history of CAD (coronary artery disease), COPD (chronic obstructive pulmonary disease), Esophageal reflux, Hypertension, STEMI (ST elevation myocardial infarction) (09/2017), and Thyroid disease. Past Surgical History: has a past surgical history that includes stent placement (shx) and [id number] - CA CSI ANY OTHER THAN PCI 2 YR. Family History: family history includes Cancer in his maternal grandmother; Diabetes in his mother; Hypertension in his daughter and mother. Social History: reports that he has been smoking cigarettes. He started smoking about 39 years ago.He has a 17.50 pack-year smoking history. He has never used smokeless tobacco. He reports that he drinks alcohol. He reports that he has current or past drug history. Drug: Marijuana. Review of Systems: Review of Systems Constitutional: Negative. HENT: Negative. Eyes: Negative. Respiratory: Positive for cough and shortness of breath. Cardiovascular: Negative. Gastrointestinal: Negative. Genitourinary: Negative. Musculoskeletal: Negative. Skin: Negative. Neurological: Negative. Psychiatric/Behavioral: Negative. Negative for agitation. Endocrine: Endocrine negative Objective: BP 106/73 (BP Location: Left arm, Patient Position: Sitting, BP CUFF SIZE: Adult Medium) | Pulse 87 | Resp 19 | Ht 6' 1" (1.854 m) | Wt 187 lb 4.8 oz ( 85 kg) | SpO2 98% | BMI 24.71 kg/m Physical Exam Constitutional: He is oriented to person, place, and time. He appears well- developed and well-nourished. HENT: Head: Normocephalic and atraumatic. Eyes: Conjunctivae and EOM are normal. Neck: Normal range of motion. Neck supple. Cardiovascular: Normal rate and regular rhythm. Pulmonary/Chest: Effort normal and breath sounds normal. Abdominal: Soft. Bowel sounds are normal. Musculoskeletal: Normal range of motion. Neurological: He is alert and oriented to person, place, and time. Skin: Skin is warm and dry. Psychiatric: He has a normal mood and affect. His behavior is normal. Judgment and thought content normal. Labs/Studies: CXR no acute cardiopulmonary process Assessment: ICD-10-CM ICD-9-CM 1. Dyspnea on exertion R06.09 786.09 Plan: Will get pulmonary function testing and six minute walk C/w Symbicort and Pro Air F/u 4 weeks documented in this encounter Plan of Treatment Date Type Specialty Care Team Description 08/04/2019 Appointment Cardiac Undergraduate Intern Padmini Callahan 08/06/2019 Office Visit Gastroenterology Karlo Farnsworth, [facility]eda[facility] [address] [place] [phone] 11/08/2019 Office Visit Cardiology Soni Galdamez MD [address] [place] [address] [place] [phone] Name Type Priority Associated Diagnoses Order Schedule DIAGNOSTIC PROCEDURE PULMONARY FUNCTION Routine Dyspnea on exertion Ordered : Preferred Location: LAB 07/29/2019 [facility] SIX MINUTE WALK PULMONARY FUNCTION Routine Dyspnea on exertion Ordered: Preferred Location: LAB 07/29/2019 [facility] Health Maintenance Due Date Last Done Comments PNEUMOCOCCAL 0-64 YEARS COMBINED 1972 SERIES (1 of 1 - PPSV23) DTaP,Tdap,and Td Vaccines (1 - 1977 Tdap) COLONOSCOPY 2016 Zoster Recombinant Vaccine 2016 (SHINGRIX) (1 of 2) INFLUENZA VACCINE (#1) 2020 Postponed from 02/07/2019 (Refused) documented as of this encounter Results Not on filedocumented in this encounter Visit Diagnoses Diagnosis Dyspnea on exertion - Primary Other dyspnea and respiratory abnormality documented in this encounter
--- OUTSIDE RECORDS SUMMARY | 2019-08-15 16:54 | XMS REPORT | Summary of Care ---
:1965 Author Organization [facility] Address [address] [place] [address] Care Team Providers Name Role Phone Vilma Morris GUERRERO Primary Care Provider Reason for Visit Reason Comments Pre-Visit Planning Encounter Details Date Type Department Care Team Description 07/27/2019 Telephone [facility] Soni Galdamez Pre-Visit Planning Cardiac Catheterization Lab MD Dameon [facility], [facility] [address] [facility] [address], [address] [address] [phone] Allergies No Known Allergiesdocumented as of this encounter (statuses as of 07/27/2019) Medications Medication Sig Dispensed Refills Start Date End Date Status aspirin 81 mg EC Take 81 mg by 0 Active tabletIndications: mouth daily. Coronary artery disease involving [place] coronary artery of [place] heart without angina pectoris, Essential hypertension nitroglycerin 0.[address] 0.4 mg 0 Active sublingual under the tongue tabletIndications: every 5 (five) Coronary artery disease minutes as involving [place] needed for Chest coronary artery of pain. Not to [place] heart without exceed 3 doses angina pectoris, Essential hypertension budesonide-formoterol Inhale 2 Puffs 2 0 Active (SYMBICORT) 160-4.5 (two) times mcg/actuation inhaler daily. levalbuterol 45 Inhale 1-2 Puffs 0 Active mcg/actuation inhaler 3 (three) times daily as needed for Wheezing. atorvastatin 80 mg Take 1 tablet by 30 tablet 5 06/10/2019 Active tabletIndications: mouth at Coronary artery disease bedtime. involving [place] coronary artery of [place] heart without angina pectoris lisinopril 10 mg Take 1 tablet by 30 tablet 4 06/10/2019 Active tabletIndications: mouth daily. Essential hypertension, Coronary artery disease involving [place] coronary artery of [place] heart without angina pectoris clopidogrel 75 mg Take 1 tablet by 30 tablet 5 06/10/2019 Active tabletIndications: mouth daily. Coronary artery disease involving [place] coronary artery of [place] heart without angina pectoris isosorbide mononitrate TAKE 1 TABLET BY 30 tablet 2 06/18/2019 Active 30 mg 24 hr MOUTH ONCE DAILY tabletIndications: Coronary artery disease involving [place] coronary artery of [place] heart without angina pectoris levothyroxine 75 mcg Take 1 tablet by 30 tablet 5 07/13/2019 Active tabletIndications: mouth every Hypothyroidism morning. (acquired) levothyroxine 50 mcg Take 1 tablet by 30 tablet 5 07/16/2019 Active tabletIndications: mouth every Hypothyroidism morning. (acquired) ibuprofen 600 mg Take 1 tablet by 20 tablet 0 07/20/2019 Active tabletIndications: mouth every 8 Nonintractable headache, (eight) hours as unspecified chronicity needed for Pain pattern, unspecified (scale 4-6). headache type butalbital-acetaminophen Take 1 tablet by 28 tablet 0 07/22/2019 Active -caff 50-325-40 mg mouth every 4 tabletIndications: (four) hours as Intractable episodic needed for Pain cluster headache (scale 4-6). metoprolol succinate XL Take 1 tablet by 60 tablet 2 07/22/2019 Active 25 mg 24 hr tablet mouth every 12 (twelve) hours. documented as of this encounter (statuses as of 07/27/2019) Active Problems Problem Noted Date Chest pain 06/18/2019 Coronary artery disease involving [place] heart 11/20/2017 Essential hypertension 11/20/2017 Tobacco abuse 11/20/2017 documented as of this encounter (statuses as of 07/27/2019) Social History Tobacco Use Types Packs/Day Years [...] Description 07/29/2019 Office Visit Pulmonary Disease Demario Hernandez, [address] [place] [phone] 08/04/2019 Appointment Cardiac Health And Social Care Teacher Outpt-Padmini Conner 08/06/2019 Office Visit Gastroenterology Karlo Farnsworth, PALedaC [address] [place] [address] [phone] 11/08/2019 Office Visit Cardiology Soni Galdamez MD [address] [place]ETA [address] [place] [phone] Health Maintenance Due Date Last Done [...] Address Type / Group Dates HARRY MCDONALD [id number] 2017-Prese [phone] [id number] PRIMARY CARE PRIMARY CARE nt [address] [place] [address] [facility] [place] [id number] [address]-Prese [place] [address] [address] [facility] [place] [address] [place] [address] documented as of this encounter
--- OUTSIDE RECORDS SUMMARY | 2019-08-15 16:54 | XMS REPORT | Summary of Care ---
:1965 Author Organization [facility] Address [address] [place] [address] Care Team Providers Name Role Phone Vilma Morris GUERRERO Primary Care Provider Reason for Referral (Routine) Status Reason Specialty Diagnoses / Referred By Referred To Procedures Contact Contact New Request Pulmonary Function Diagnoses Dyspnea on exertion Demario Hernandez Technologist Procedures SIX MINUTE WALK Preferred Location: [facility]-Main DO [address] [place] [phone] (Routine) Status Reason Specialty Diagnoses / Referred By Referred To Procedures Contact Contact New Request Pulmonary Function Diagnoses Dyspnea on exertion Demario Hernandez Technologist Procedures DIAGNOSTIC PROCEDURE Preferred Location: [facility]-Main DO [address] [place] [phone] Reason for Visit Reason Comments New Patient Hospital F/U COPD Cough with light yellow colored phlegm Shortness of Breath Encounter Details Date Type Department Care Team Description 07/29/2019 Office Visit [facility] ADC Demario Hernandez DO Dyspnea on exertion Pulmonary Clinic [address] [place] [address] (Primary Dx) [address] [place] [address] , [address] [phone] Allergies No Known Allergiesdocumented as of this encounter (statuses as of 07/29/2019) Medications Medication Sig Dispensed Refills Start Date End Date Status aspirin 81 mg EC Take 81 mg by 0 Active tabletIndications: mouth daily. Coronary artery disease involving [place] coronary artery of [place] heart without angina pectoris, Essential hypertension nitroglycerin 0.[address] 0.4 mg 0 Active sublingual under the tabletIndications: tongue every Coronary artery 5 (five) disease involving minutes as [place] coronary needed for artery of [place] Chest pain. heart without angina Not to [...] mouth at Coronary artery bedtime. disease involving [place] coronary artery of [place] heart without angina pectoris lisinopril 10 mg Take 1 tablet 30 tablet 4 06/10/2019 Active tabletIndications: by mouth Essential daily. hypertension, Coronary artery disease involving [place] coronary artery of [place] heart without angina pectoris clopidogrel 75 mg Take 1 tablet 30 tablet 5 06/10/2019 Active tabletIndications: by mouth Coronary artery daily. disease involving [place] coronary artery of [place] heart without angina pectoris isosorbide TAKE 1 TABLET 30 tablet 2 06/18/2019 Active mononitrate 30 mg 24 BY MOUTH ONCE hr DAILY tabletIndications: Coronary artery disease involving [place] coronary artery of [place] heart without angina pectoris levothyroxine 50 mcg [...] Chest pain 06/18/2019 Coronary artery disease involving [place] heart 11/20/2017 Essential hypertension 11/20/2017 Tobacco abuse [...] Comments Blood Pressure 106/73 07/29/2019 2:21 PM OUTCOME ANALYST Pulse 87 07/29/2019 2:21 PM OUTCOME ANALYST Temperature - - Respiratory Rate 19 07/29/2019 2:21 PM OUTCOME ANALYST Oxygen Saturation 98% 07/29/2019 2:21 PM OUTCOME ANALYST Inhaled Oxygen Concentration - - Weight 85 kg (187 lb 4.8 oz) 07/29/2019 2:21 PM OUTCOME ANALYST Height 185.4 cm (6' 1") 07/29/2019 2:21 PM OUTCOME ANALYST Body Mass Index 24.71 07/29/2019 2:21 PM OUTCOME ANALYST documented in this encounter Progress Notes Demario Hernandez, DO - 07/29/2019 2:20 PM CST [facility] Inter[facility] Pul[facility] Chief Complaint: Evaluation for [...] includes stent placement (shx) and G8964 - OR CSI ANY OTHER THAN PCI 2 YR. [...] Specialty Care Team Description 08/04/2019 Appointment Cardiac Classroom Instructor Padmini Callahan 08/06/2019 Office Visit Gastroenterology Karlo Farnsworth, PALedaC [address] [place] [phone] 11/08/2019 Office Visit Cardiology Soni Galdamez MD [address] [place]ET[place] [address] [place] [phone] Name Type Priority Associated Diagnoses Order [...]
--- OUTSIDE RECORDS SUMMARY | 2019-08-15 16:54 | XMS REPORT | Summary of Care ---
:1965 Author Organization [facility] - Health Address [address] [place] [address] Care Team Providers Name Role Phone Vilma Morris GUERRERO Primary Care Provider Encounter Details Date Type Department Care Team Description 06/17/2019 Orders Only [facility] Doctor Unassigned, No [address] [facility] [place] [address] [address] [place] [address] Allergies No Known Allergiesdocumented as of this encounter (statuses as of 07/28/2019) Medications Medication Sig Dispensed Refills Start Date End Date Status aspirin 81 mg EC Take 81 mg by 0 Active tabletIndications: mouth daily. Coronary artery disease involving [place] coronary artery of [place] heart without angina pectoris, Essential hypertension nitroglycerin 0.[address] 0.4 mg 0 Active sublingual under the tongue tabletIndications: every 5 (five) Coronary artery disease minutes as needed involving [place] for Chest pain. coronary artery of Not to exceed 3 [place] heart without doses angina pectoris, Essential hypertension budesonide-formoterol Inhale 2 Puffs 2 0 Active (SYMBICORT) 160-4.5 (two) times mcg/actuation inhaler daily. levalbuterol 45 Inhale 1-2 Puffs 0 Active mcg/actuation inhaler 3 (three) times daily as needed for Wheezing. atorvastatin 80 mg Take 1 tablet by 30 tablet 5 06/10/2019 Active tabletIndications: mouth at bedtime. Coronary artery disease involving [place] coronary artery of [place] heart without angina pectoris lisinopril 10 mg Take 1 tablet by 30 tablet 4 06/10/2019 Active tabletIndications: mouth daily. Essential hypertension, Coronary artery disease involving [place] coronary artery of [place] heart without angina pectoris clopidogrel 75 mg Take 1 tablet by 30 tablet 5 06/10/2019 Active tabletIndications: mouth daily. Coronary artery disease involving [place] coronary artery of [place] heart without angina pectoris documented as of this encounter (statuses as of 07/28/2019) Active Problems Problem Noted Date Chest pain 06/18/2019 Coronary artery disease involving [place] heart 11/20/2017 Essential hypertension 11/20/2017 Tobacco abuse 11/20/2017 documented as of this encounter (statuses as of 07/28/2019) Social History Tobacco Use Types Packs/Day Years [...] 07/29/2019 Office Visit Pulmonary Disease Demario Hernandez, [address] [place] [address] [phone] 08/04/2019 Appointment Cardiac Roll Changer Outpt-Padmini Conner 08/06/2019 Office Visit Gastroenterology Karlo Farnsworth, PALedaC [address] [place] [address] [phone] 11/08/2019 Office Visit Cardiology Soni Galdamez MD [address] [address] [place] [phone] Health Maintenance Due Date Last Done Comments PNEUMOCOCCAL 0-64 YEARS COMBINED 1972 SERIES (1 of 1 - PPSV23) DTaP,Tdap,and Td Vaccines (1 - 1977 Tdap) COLONOSCOPY 2016 Zoster Recombinant Vaccine 2016 (SHINGRIX) (1 of 2) INFLUENZA VACCINE (#1) 2020 Postponed from 02/07/2019 (Refused) documented as of this encounter Procedures Procedure Name Priority Date/Time Associated Diagnosis Comments SCANNED LAB RESULTS Routine 06/17/2019 12:01 AM INSULATION PROFESSIONAL documented in this encounter Results SCANNED LAB RESULTS (06/17/2019 12:01 AM INSULATION PROFESSIONAL) Specimen Performing Organization Address City/State/Zipcode Phone Number HIM documented in this encounter Insurance Payer Benefit Plan Subscriber ID Effective Phone Address Type / Group Dates HARRY MCDONALD [id number] 2017-Pres [phone] [facility] PRIMARY CARE PRIMARY CARE nt [address] [place] [address] [place] HARRY COCarmela [id number] 2017-[place] [address] [address] [facility] nt [address] [place] [address] documented as of this encounter
--- OUTSIDE RECORDS SUMMARY | 2019-08-15 16:55 | XMS REPORT | Summary of Care ---
:1965 Author Organization [facility] - Health Address [address] [place] [address] Care Team Providers Name Role Phone Vilma Morris GUERRERO Primary Care Provider Encounter Details Date Type Department Care Team Description 06/10/2019 Orders Only [facility] Doctor Unassigned, No [address] [facility] [place] [address] [address] [place] [address] Allergies No Known Allergiesdocumented as of this encounter (statuses as of 08/03/2019) Medications Medication Sig Dispensed Refills Start Date End Date Status aspirin 81 mg EC Take 81 mg by 0 Active tabletIndications: mouth daily. Coronary artery disease involving [place] coronary artery of [place] heart without angina pectoris, Essential hypertension nitroglycerin 0.[address] 0.4 mg 0 Active sublingual under the tongue tabletIndications: every 5 (five) Coronary artery disease minutes as needed involving [place] for Chest pain. coronary artery of Not to exceed 3 [place] heart without doses angina pectoris, Essential hypertension budesonide-formoterol Inhale 2 Puffs 2 0 Active (SYMBICORT) 160-4.5 (two) times mcg/actuation inhaler daily. levalbuterol 45 Inhale 1-2 Puffs 0 Active mcg/actuation inhaler 3 (three) times daily as needed for Wheezing. atorvastatin 80 mg Take 1 tablet by 30 tablet 5 06/10/2019 Active tabletIndications: mouth at bedtime. Coronary artery disease involving [place] coronary artery of [place] heart without angina pectoris lisinopril 10 mg Take 1 tablet by 30 tablet 4 06/10/2019 Active tabletIndications: mouth daily. Essential hypertension, Coronary artery disease involving [place] coronary artery of [place] heart without angina pectoris clopidogrel 75 mg Take 1 tablet by 30 tablet 5 06/10/2019 Active tabletIndications: mouth daily. Coronary artery disease involving [place] coronary artery of [place] heart without angina pectoris documented as of this encounter (statuses as of 08/03/2019) Active Problems Problem Noted Date Chest pain 06/18/2019 Coronary artery disease involving [place] heart 11/20/2017 Essential hypertension 11/20/2017 Tobacco abuse 11/20/2017 documented as of this encounter (statuses as of 08/03/2019) Social History Tobacco Use Types Packs/Day Years [...] Specialty Care Team Description 08/04/2019 Appointment Cardiac Manager University OutPadmini Umana 08/12/2019 Access Control Specialist Visit [facility] 09/23/2019 Office Visit Pulmonary Disease Demario Hernandez, [address] [place] [address] 11/08/2019 Office Visit Cardiology Soni Galdamez MD [address] [place] [address] [place] [phone] Health Maintenance Due Date Last Done Comments PNEUMOCOCCAL 0-64 YEARS COMBINED 1972 SERIES (1 of 1 - PPSV23) DTaP,Tdap,and Td Vaccines (1 - 1977 Tdap) COLONOSCOPY 2016 Zoster Recombinant Vaccine 2016 (SHINGRIX) (1 of 2) INFLUENZA VACCINE (#1) 2020 Postponed from 02/07/2019 (Refused) documented as of this encounter Procedures Procedure Name Priority Date/Time Associated Diagnosis Comments AGREEMENTS AUTHORIZATIONS Routine 06/10/2019 12:01 AM AND IRREVOCABLE NEWS AGENT ASSIGNMENTS (FORM 2000) documented in this encounter Results Not on filedocumented in this encounter Insurance Payer Benefit Plan Subscriber ID Effective Phone Address Type / Group Dates HARRY HARRY [id number] 2017-Prese [phone] [facility] PRIMARY CARE PRIMARY CARE nt [address] [place] [address] [place] HARRY SOLIS [id number] [address]-[place] [address] [facility] [address] [place] [facility] [place] [address] [place] [address] documented as of this encounter
--- OUTSIDE RECORDS SUMMARY | 2019-08-15 16:55 | XMS REPORT | Summary of Care ---
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 [address] disease involving Catheterization [facility], Ccl saxman coronary [facility], artery of saxman 6th Floor heart with angina [address], pectoris (Primary 6.312 Dx) [place] [address] Allergies No Known Allergiesdocumented as of this encounter (statuses as of 08/05/2019) Medications Medication Sig Dispensed Refills Start Date End Date Status aspirin 81 mg EC Take 81 mg by 0 Active tabletIndications: mouth daily. Coronary artery disease involving saxman coronary artery of saxman heart without angina pectoris, Essential hypertension nitroglycerin 0.[address] 0.4 mg 0 Active sublingual under the tongue tabletIndications: every 5 (five) Coronary artery disease minutes as involving saxman needed for Chest coronary artery of pain. Not to saxman heart without exceed 3 doses angina pectoris, Essential hypertension budesonide-formoterol Inhale 2 Puffs 2 0 Active (SYMBICORT) 160-4.5 (two) times mcg/actuation inhaler daily. levalbuterol 45 Inhale 1-2 Puffs 0 Active mcg/actuation inhaler 3 (three) times daily as needed for Wheezing. atorvastatin 80 mg Take 1 tablet by 30 tablet 5 06/10/2019 Active tabletIndications: mouth at Coronary artery disease bedtime. involving saxman coronary artery of saxman heart without angina pectoris lisinopril 10 mg Take 1 tablet by 30 tablet 4 06/10/2019 Active tabletIndications: mouth daily. Essential hypertension, Coronary artery disease involving saxman coronary artery of saxman heart without angina pectoris clopidogrel 75 mg Take 1 tablet by 30 tablet 5 06/10/2019 Active tabletIndications: mouth daily. Coronary artery disease involving saxman coronary artery of saxman heart without angina pectoris isosorbide mononitrate TAKE 1 TABLET BY 30 tablet 2 06/18/2019 Active 30 mg 24 hr MOUTH ONCE DAILY tabletIndications: Coronary artery disease involving saxman coronary artery of saxman heart without angina pectoris levothyroxine 50 mcg [...] as of this encounter (statuses as of 08/05/2019) Active Problems Problem Noted Date Chest pain 06/18/2019 Coronary artery disease involving saxman heart 11/20/2017 Essential hypertension 11/20/2017 Tobacco abuse 11/20/2017 documented as of this encounter (statuses as of 08/05/2019) Social History Tobacco Use Types Packs/Day Years [...] Sign Reading Time Taken Comments Blood Pressure 126/88 08/04/2019 1:55 PM [facility] Standing Pulse 174 08/04/2019 1:55 PM [facility] Temperature - - Respiratory Rate 25 08/04/2019 1:50 PM [facility] Oxygen Saturation 98% 08/04/2019 1:50 PM [facility] Inhaled Oxygen Concentration - - Weight 86.2 kg (190 lb) 08/04/2019 8:31 AM [facility] Height 185.4 cm (6' 1") 08/04/2019 8:31 AM [facility] Body Mass Index 25.07 08/04/2019 8:31 AM [facility] documented in this encounter Discharge Instructions Duarte Anguiano RN - 08/04/2019 Patient Discharge Instructions Follow instructions as indicated below: Discharge Orders Activity As Tolerated Lift nothing heavier than 5 pounds for 2 weeks Do not operate a motorized vehicle for 2 days Keep area dry and clean Do not remove band-aid for the first 24 hours after procedure Do not soak in bathtub or hot tub for the first 24 hours after procedure Watch for bleeding, swelling, pain, fever, and any discharge call the Medical Collections ( during hours) Order Comments: At nights, weekends or holidays, call the [facility] hospital block making machine operator at . Ask the block making machine operator to page the Cardiac Cath Fellow who is on-call. Avoid making important life decisions for the first 48 hours No strenuous activity for 72 hours Drink plenty of water Continue previous outpatient medications Hold Metformin for 48 hours Resume pre procedure diet Order Comments: Resume pre procedure diet Weight: In general, sudden weight gains or losses should be reported to your provider. Cardiac patients should weigh daily and notify their provider for a weight gain of 3 pounds per day or 5 pounds per week. Follow-up appointments: To schedule other appointments, call the [facility] at or . You may also make appointments online by going to [email or web address] and follow the RequestAppointment quicklink. Take Home Medications These are medications ordered for you by your healthcare provider. Do not take any other medicationsor supplements unless advised by your healthcare provider. Patient's Medications START taking these medications No medications on file CONTINUE taking these medications which have NOT CHANGED ASPIRIN 81 MG EC TABLET Take 81 mg by mouth daily. ATORVASTATIN 80 MG TABLET Take 1 tablet by mouth at bedtime. BUDESONIDE-FORMOTEROL (SYMBICORT) 160-4.5 MCG/ACTUATION INHALER Inhale 2 Puffs 2 (two) times daily. XROXHXZCTY-CJGTKXZQILGLL-DHXJ 50-325-40 MG TABLET Take 1 tablet by mouth every 4 (four) hours asneeded for Pain (scale 4-6). CLOPIDOGREL 75 MG TABLET Take 1 tablet by mouth daily. IBUPROFEN 600 MG TABLET Take 1 tablet by mouth every 8 (eight) hours as needed for Pain (scale 4-6). ISOSORBIDE MONONITRATE 30 MG 24 HR TABLET TAKE 1 TABLET BY MOUTH ONCE DAILY LEVALBUTEROL 45 MCG/ACTUATION INHALER Inhale 1-2 Puffs 3 (three) times daily as needed for Wheezing. LEVOTHYROXINE 50 MCG TABLET Take 1 tablet by mouth every morning. LISINOPRIL 10 MG TABLET Take 1 tablet by mouth daily. METOPROLOL SUCCINATE XL 25 MG 24 HR TABLET Take 1 tablet by mouth every 12 ( twelve) hours. NITROGLYCERIN 0.[address] 0.4 mg under the tongue every 5 (five) minutes as needed for Chest pain. Not to exceed 3 doses START taking Modified Medications as Prescribed No medications on file STOP taking these medications No medications on file Medications: Your doctor may prescribe medicine to prevent blood clots. You may also have to take medicine to prevent chest pain. Take your medicine as usual after the procedure unless your doctor has told you to stop. Any changes in your medicine's schedule will be explained to you. For questions regarding follow-up instructions call the [facility] at or For worsening symptoms/changing condition/problems or questions: During normal business hours call the [facility] Cardiac Medical Collections at . At nights, weekends or holidays, call the [facility] hospital block making machine operator at [phone]. Ask the block making machine operator to page the Cardiac Cath Fellow who is on-call. Emergency: Go to the closest emergency room or call 911 Signs and Symptoms of a Problem: Call your doctor if you have any of the following problems: Fever Swelling, pain, redness around the puncture site Foul smell or drainage from the site Odd changes in sensations, like numbness, tingling, coldness or pain in the arm or leg where the catheter was inserted. If you start Bleeding: Apply pressure to the site. If the bleeding continues, have someone call your doctor and make arrangements to see him/her. Please follow the doctor's directions. Our Goal is to Always Provide You with Very Good Care! We will be mailing you a survey, Please complete and return at your convenience. Thank You TOBACCO AVOIDANCE Exposure to tobacco either from smoking or from second hand (environmental) smoke or smokeless tobacco (snuff) is damaging to your health. This information is to encourage everyone to avoid tobacco exposure. It is recommended that you: ? If you smoke or use smokeless tobacco, we encourage you to quit. ? If you have already quit smoking, continue your good work! ? If you do not smoke or use smokeless tobacco, do not start. ? Avoid secondhand smoke. Additional Resources You may want to contact these organizations for further information on smoking and how to quit. [employer] Association, http://www.lungusa.org/stop-smoking/ [employer] Cancer Society, http://www.cancer.org/Healthy/StayAwayfromTobacco/index [place] Heart Association, http://www.heart.org/HEARTORG/GettingHealthy/ QuitSmoking/Quit-Smoking_[facility]_001085_SubHomePage.jsp Findings: coronary dominance: right left main: Normal LAD: mid stent with mild 20-30% ISR. LCX: proximal stent patent. RCA: proximal 20-30% then distal 60% disease before big aneurysm then ostial RPDA 60%, RPL with mildLI. 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 - Continue aggressive medical treatment. - Findings and plan of care discussed with patient. documented in this encounter Plan of Treatment Date Type Specialty Care Team Description 08/12/2019 Drop Forge Operator Visit Inside Sales Representative 09/23/2019 Office Visit Pulmonary Disease Demario Hernandez DO [address] [place] [address] 11/08/2019 Office Visit Cardiology Soni Galdamez MD [address] [place] [address] [place] [address] Health Maintenance Due Date Last Done Comments PNEUMOCOCCAL 0-64 YEARS COMBINED 1972 SERIES (1 of 1 - PPSV23) DTaP,Tdap,and Td Vaccines (1 - 1977 Tdap) COLONOSCOPY 2016 Zoster Recombinant Vaccine 2016 (SHINGRIX) (1 of 2) INFLUENZA VACCINE (#1) 2020 Postponed from 02/07/2019 (Refused) documented as of this encounter Procedures Procedure Name Priority Date/Time Associated Diagnosis Comments POCT ACT LOW RANGE Routine 08/04/2019 10:02 AM Results for this [facility] procedure are in the results section. 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 - Primary documented in this encounter Administered Medications Medication Order MAR Action Action Date Dose Rate Site NaCl 0.9% (NS) IV infusion New Bag 08/04/2019 11:39 AM [facility] 1,000 mL 75 mL/ hr 1,000 mL at 75 mL/hr, IV Infusion, CONTINUOUS, Starting 08/04/19 at 1030, Until Discontinued, Routine Medication Order MAR Action Action Date Dose Rate Site aspirin chewable tablet Given 08/04/2019 7:45 AM [facility] 81 mg Oral, PRN, Starting Fri08/04/19 at 0745, Until Fri08/04/19 at 0745, Routine clopidogreL (PLAVIX) tablet Given 08/04/2019 7:46 AM [facility] 75 mg Oral, PRN, Starting Fri08/04/19 at 0746, Until Fri08/04/19 at 0746, Routine FENTanyl PF (SUBLIMAZE (PF)) injection Given 08/04/2019 8:55 AM [facility] 25 mcg Slow IV Push, TITRATE - FOR PROCEDURE USE, 1 dose, Starting Fri08/04/19 at 0855, Until Fri08/04/19 at 0855, Routine FENTanyl PF (SUBLIMAZE (PF)) injection Given 08/04/2019 9:11 AM [facility] 25 mcg Slow IV Push, TITRATE - FOR PROCEDURE USE, 1 dose, Starting Fri08/04/19 at 0911, Until Fri08/04/19 at 0911, Routine FENTanyl PF (SUBLIMAZE (PF)) injection Given 08/04/2019 9:22 AM [facility] 25 mcg Slow IV Push, TITRATE - FOR PROCEDURE USE, 1 dose, Starting Fri08/04/19 at 0922, Until Fri08/04/19 at 0922, Routine FENTanyl PF (SUBLIMAZE (PF)) injection Given 08/04/2019 9:50 AM [facility] 25 mcg Slow IV Push, TITRATE - FOR PROCEDURE USE, 1 dose, Starting Fri08/04/19 at 0950, Until Fri08/04/19 at 0950, Routine heparin 1,000 unit/mL injection Given 08/04/2019 9:05 AM [facility] 2,500 Units Slow IV Push, TITRATE - FOR PROCEDURE USE, 1 dose, Starting Fri08/04/19 at 0905, Until Fri08/04/19 at 0905, Routine lidocaine 1% (PF) (XYLOCAINE) injection Given 08/04/2019 9:01 AM [facility] 5 mL Infiltration, TITRATE - FOR PROCEDURE USE, 1 dose, Starting Fri08/04/19 at 0901, Until Fri08/04/19 at 0901, Routine lidocaine 1% (PF) (XYLOCAINE) injection Given 08/04/2019 9:49 AM [facility] 5 mL Infiltration, TITRATE - FOR PROCEDURE USE, 1 dose, Starting Fri08/04/19 at 0949, Until Fri08/04/19 at 0949, Routine midazolam (VERSED) injection Given 08/04/2019 8:55 AM [facility] 1 mg IV Push, TITRATE - FOR PROCEDURE USE, 1 dose, Starting Fri08/04/19 at 0855, Until Fri08/04/19 at 0855, Routine midazolam (VERSED) injection Given 08/04/2019 9:11 AM [facility] 1 mg IV Push, TITRATE - FOR PROCEDURE USE, 1 dose, Starting Fri08/04/19 at 0911, Until Fri08/04/19 at 0911, Routine midazolam (VERSED) injection Given 08/04/2019 9:33 AM [facility] 1 mg IV Push, TITRATE - FOR PROCEDURE USE, 1 dose, Starting Fri08/04/19 at 0933, Until Fri08/04/19 at 0933, Routine NaCl 0.9% (NS) bolus infusion New Bag 08/04/2019 9:07 AM [facility] 500 mL IV Infusion, CONTINUOUS PRN, Starting Fri08/04/19 at 0907, Until Fri08/04/19 at 0907, STAT nitroglycerin (TRIDIL) 2 mg in 10 mL D5W for Given 08/04/2019 9:05 AM [facility] 0.2 [address] Intravenous, TITRATE - FOR PROCEDURE USE, 1 dose, Starting Fri08/04/19 at 0905, Until Fri08/04/19 at 0905, Routine nitroglycerin (TRIDIL) 2 mg in 10 mL D5W for Given 08/04/2019 9:26 AM [facility] 0.2 [address] Intravenous, TITRATE - FOR PROCEDURE USE, 1 dose, Starting Fri08/04/19 at 0926, Until Fri08/04/19 at 0926, Routine nitroglycerin (TRIDIL) 2 mg in 10 mL D5W for Given 08/04/2019 9:34 AM [facility] 0.2 mg Cardiac Cath Intravenous, TITRATE - FOR PROCEDURE USE, 1 dose, Starting Fri08/04/19 at 0934, Until Fri08/04/19 at 0934, Routine documented in this encounter Insurance Payer Benefit Plan Subscriber ID Effective Phone Address Type / Group Dates [employer] [id number] [address] [place] [address] [place] [address] documented as of this encounter
--- OUTSIDE RECORDS SUMMARY | 2019-08-15 16:55 | XMS REPORT | Summary of Care ---
:1965 Author Organization [facility] Address [address] [place] [address] Care Team Providers Name Role Phone Vilma Morris E LEARNING COORDINATOR Primary Care Provider Reason for Referral Radiology Services (KIANNA) Status Reason Specialty Diagnoses / Referred By Referred To Procedures Contact Contact New Request Diagnostic Diagnoses Chest pain, unspecified type Félix, K Radiology Procedures XR CHEST 2 VW Mary, PAC [address] [place] [phone] Reason for Visit Reason Comments Shortness of Breath Auth/Cert Status Reason Specialty Diagnoses / Referred By Referred To Procedures Contact Contact [facility] [address] [place] [address] Encounter Details Date Type Department Care Team Description 08/08/2019 Emergency [facility]-Emergency Félix, K Mary, Pleuritic chest pain ( Primary Dx); Department PAC Chest pain, unspecified type [address] [place] [address] [place] [address] [place] [address] Allergies No Known Allergiesdocumented as of this encounter (statuses as of 08/08/2019) Medications Medication Sig Dispensed Refills Start Date End Date Status aspirin 81 mg EC Take 81 mg by 0 Active tabletIndications: mouth daily. Coronary artery disease involving [place] coronary artery of [place] heart without angina pectoris, Essential hypertension nitroglycerin 0.[address] 0.4 mg 0 Active sublingual under the tongue tabletIndications: every 5 (five) Coronary artery disease minutes as involving [place] needed for Chest coronary artery of pain. Not to [place] heart without exceed 3 doses angina pectoris, Essential hypertension budesonide-formoterol Inhale 2 Puffs 2 0 Active (SYMBICORT) 160-4.5 (two) times mcg/actuation inhaler daily. levalbuterol 45 Inhale 1-2 Puffs 0 Active mcg/actuation inhaler 3 (three) times daily as needed for Wheezing. atorvastatin 80 mg Take 1 tablet by 30 tablet 5 06/10/2019 Active tabletIndications: mouth at Coronary artery disease bedtime. involving [place] coronary artery of [place] heart without angina pectoris lisinopril 10 mg Take 1 tablet by 30 tablet 4 06/10/2019 Active tabletIndications: mouth daily. Essential hypertension, Coronary artery disease involving [place] coronary artery of [place] heart without angina pectoris clopidogrel 75 mg Take 1 tablet by 30 tablet 5 06/10/2019 Active tabletIndications: mouth daily. Coronary artery disease involving [place] coronary artery of [place] heart without angina pectoris isosorbide mononitrate TAKE 1 TABLET BY 30 tablet 2 06/18/2019 Active 30 mg 24 hr MOUTH ONCE DAILY tabletIndications: Coronary artery disease involving [place] coronary artery of [place] heart without angina pectoris levothyroxine 50 mcg [...] hr tablet mouth every 12 (twelve) hours. methylPREDNISolone Take by mouth 21 Each 0 08/08/2019 Active (MEDROL, DEREK,) 4 mg SEE-INSTRUCTIONS tabletsIndications: . follow package Pleuritic chest pain directions documented as of this encounter (statuses as of 08/08/2019) Active Problems Problem Noted Date Chest pain 06/18/2019 Coronary artery disease involving [place] heart 11/20/2017 Essential hypertension 11/20/2017 Tobacco abuse 11/20/2017 documented as of this encounter (statuses as of 08/08/2019) Social History Tobacco Use Types Packs/Day Years [...] Sign Reading Time Taken Comments Blood Pressure 113/79 08/08/2019 6:00 PM [facility] Pulse 61 08/08/2019 6:00 PM [facility] Temperature 37 C (98.6 F) 08/08/2019 2:20 PM [facility] Respiratory Rate 15 08/08/2019 6:00 PM [facility] Oxygen Saturation 97% 08/08/2019 6:00 PM [facility] Inhaled Oxygen Concentration - - Weight 86.2 kg (190 lb) 08/08/2019 2:20 PM [facility] Height 185.4 cm (6' 1") 08/08/2019 2:20 PM [facility] Body Mass Index 25.07 08/08/2019 2:20 PM [facility] documented in this encounter Discharge Instructions AttachmentsThe following attachments cannot be sent through Care Everywhere.Chest Pain, Noncardiac (Cuban)documented in this encounter Plan of Treatment Date Type Specialty Care Team Description 08/10/2019 Office Visit Family Medicine Vilma Morris, E LEARNING COORDINATOR [address] [place] [address] Care, Cathy Primary 08/12/2019 Wood Lather Visit Durable Medical Equipment Technician 09/23/2019 Office Visit Pulmonary Disease Demario Hernandez DO [address] [place] [address] 11/08/2019 Office Visit Cardiology Soni Galdamez MD [address] [place] [address] [place] [phone] Health Maintenance Due Date Last Done Comments PNEUMOCOCCAL 0-64 YEARS COMBINED 1972 SERIES (1 of 1 - PPSV23) DTaP,Tdap,and Td Vaccines (1 - 1977 Tdap) COLONOSCOPY 2016 Zoster Recombinant Vaccine 2016 (SHINGRIX) (1 of 2) INFLUENZA VACCINE (#1) 2020 Postponed from 02/07/2019 (Refused) documented as of this encounter Procedures Procedure Name Priority Date/Time Associated Diagnosis Comments TROPONIN I STAT 08/08/2019 5:02 Chest pain, Results for this PM [facility] unspecified type procedure are in the results section. XR CHEST 2 VW KIANNA 08/08/2019 3:02 Chest pain, Results for this PM [facility] unspecified type procedure are in the results section. CBC WITH DIFFERENTIAL STAT 08/08/2019 2:46 Chest pain, Results for this [facility] unspecified type procedure are in the results section. CBC WITH DIFFERENTIAL Routine 08/08/2019 2:46 Chest pain, Results for this PM [facility] unspecified type procedure are in the results section. COMP. METABOLIC PANEL STAT 08/08/2019 2:46 Chest pain, Results for this (55662) PM [facility] unspecified type procedure are in the results section. TROPONIN I STAT 08/08/2019 2:46 Chest pain, Results for this [facility] unspecified type procedure are in the results section. MAGNESIUM STAT 08/08/2019 2:46 Chest pain, Results for this PM [facility] unspecified type procedure are in the results section. EKG-12 LEAD Routine 08/08/2019 2:43 PM [facility] documented in this encounter Results TROPONIN I (08/08/2019 5:02 PM [facility]) TROPONIN I 0.010 <=0.034 ng/mL [facility] Specimen Blood - VENOUS Narrative Performed At Equal or Less than 0.034 ng/ml---Normal [facility] Note: Cardiac troponin begins to rise 3-4 hours after the onset of ischemia. Repeat in 4-6 hours if the sample was drawn within 3-4 hours of the onset of the symptom and found normal. Between 0.035 and 0.120 ng/mL--- Borderline. Questionable myocardial injury or necrosis Note: Serial measurement may be necessary to confirm or exclude the diagnosis of myocardial injury or necrosis; Clinical correlation (symptoms, EKGs, imaging studies, and others) required; Repeat in 4-6 hours if clinically indicated. Equal or Higher than 0.121 ng/mL---Abnormal. Myocardial Injury or Necrosis Likely Biotin has been reported to cause a negative bias, interpret results relative to patient's use of biotin. Performing Organization Address City/[facility]/Zipcode Phone Number [facility] CLIA: [id number], [address] [place] [address] XR CHEST 2 VW (08/08/2019 3:02 PM [facility]) Specimen Impressions Performed At PACS/VR/DOSE No acute cardiopulmonary abnormality. Preliminary Report Dictated by Resident: Karlo Hernández I, Marcos Anthony MD., have reviewed this study and agree with the above report. Narrative Performed At EXAM: XR CHEST 2 VW PACS/VR/DOSE HISTORY: chest pain COMPARISON: Chest x-ray 06/18/2019 FINDINGS: The lungs are clear. No focal consolidation, pleural effusion or pneumothorax is seen. The cardiac silhouette is normal in size. No acute bony abnormality. Procedure Note [facility], Radiant Results Inft User - 08/08/2019 3:41 PM [facility] EXAM: XR CHEST 2 VW HISTORY: chest pain COMPARISON: Chest x-ray 06/18/2019 FINDINGS: The lungs are clear. No focal consolidation, pleural effusion or pneumothorax is seen. The cardiac silhouette is normal in size. No acute bony abnormality. IMPRESSION No acute cardiopulmonary abnormality. Preliminary Report Dictated by Resident: Karlo Hernández I, Marcos Anthony MD., have reviewed this study and agree with the above report. Performing Organization Address City/[facility]/Zipcode Phone Number [facility]//[facility] CBC WITH DIFFERENTIAL (08/08/2019 2:46 PM [facility]) WBC 8.91 4.20 - 10.70 [facility] 10*3/L [facility] RBC 4.99 4.26 - 5.52 [facility] 10*6/L [facility] HGB 15.2 12.2 - 16.4 g/dL [facility] HCT 45.7 38.4 - 49.3 % [facility] MCV 91.6 81.7 - 95.6 fL [facility] MCH 30.5 26.1 - 32.7 pg [facility] MCHC 33.3 31.2 - 35.0 g/dL [facility] RDW-SD 42.7 38.5 - 51.6 fL [facility] RDW-CV 12.8 12.1 - 15.4 % [facility] PLT 184 150 - 328 [facility] 10*3/L HOSPITAL [facility]ORY MPV 11.7 9.8 - 13.0 fL [facility] NRBC/100 WBC 0.0 0.0 - 10.0 /100 [facility] WBCs [facility] NRBC x10^3 <0.01 10*3/L [facility] GRAN MAT (NEUT) % 61.4 % [facility] IMM GRAN % 0.60 % [facility] LYMPH % 24.4 % [facility] MONO % 10.3 % [facility] EOS % 2.6 % [facility] BASO % 0.7 % [facility] GRAN MAT x10^3(ANC) 5.48 1.99 - 6.95 [facility] 10*3/uL HOSPITAL LAB[facility]ORY IMM GRAN x10^3 0.05 0.00 - 0.06 [facility] 10*3/uL HOSPITAL [facility] LYMPH x10^3 2.17 1.09 - 3.23 [facility] 10*3/uL [facility]PITAL [facility] MONO x10^3 0.92 0.36 - 1.02 [facility] 10*3/uL HOSPITAL [facility] EOS x10^3 0.23 0.06 - 0.53 [facility] 10*3/uL HOSPITAL [facility] BASO x10^3 0.06 0.01 - 0.09 [facility] 10*3/uL [facility] Specimen Blood - VENOUS Performing Organization Address City/State/Zipcode Phone Number [facility] CLIA: [id number], [address] [place] [address] [phone] MAGNESIUM (08/08/2019 2:46 PM [facility]) MAGNESIUM 1.9 1.7 - 2.4 mg/dL [facility] Specimen Blood - VENOUS Performing Organization Address City/[facility]/Zipcode Phone Number [facility] CLIA: [id number], [address] [place] [address] TROPONIN I (08/08/2019 2:46 PM [facility]) Pathologist [facility] TROPONIN I 0.007 <=0.034 ng/mL [facility] Specimen Blood - VENOUS Narrative Performed At Equal or Less than 0.034 ng/ml---Normal [facility] Note: Cardiac troponin begins to rise 3-4 hours after the onset of ischemia. Repeat in 4-6 hours if the sample was drawn within 3-4 hours of the onset of the symptom and found normal. Between 0.035 and 0.120 ng/mL--- Borderline. Questionable myocardial injury or necrosis Note: Serial measurement may be necessary to confirm or exclude the diagnosis of myocardial injury or necrosis; Clinical correlation (symptoms, EKGs, imaging studies, and others) required; Repeat in 4-6 hours if clinically indicated. Equal or Higher than 0.121 ng/mL---Abnormal. Myocardial Injury or Necrosis Likely Biotin has been reported to cause a negative bias, interpret results relative to patient's use of biotin. Performing Organization Address City/State/Zipcode Phone Number [facility] CLIA: [id number], [address] [place] [address] [phone] COMP. METABOLIC PANEL (23480) (08/08/2019 2:46 PM [facility]) Pathologist [facility] NA 141 135 - 145 [facility] mmol/L [facility] K 4.0 3.5 - 5.0 [facility] mmol/L [facility] CL 103 98 - 108 mmol/L [facility] CO2 TOTAL 27 23 - 31 mmol/L [facility] AGAP 11 2 - 16 [facility] BUN 16 7 - 23 mg/dL [facility] GLUCOSE 126 (H) 70 - 110 mg/dL [facility] CREATININE 0.61 0.60 - 1.25 [facility] mg/dL [facility] TOTAL BILI 0.3 0.1 - 1.1 mg/dL [facility] CALCIUM 9.9 8.6 - 10.6 [facility] mg/dL [facility] T PROTEIN 8.0 6.3 - 8.2 g/dL [facility] ALBUMIN 5.0 3.5 - 5.0 g/dL [facility] ALK PHOS 80 34 - 122 U/L [facility] ALTv 45 5 - 50 U/L [facility] AST(SGOT) 35 13 - 40 U/L [facility] eGFR Calculation 138.3 mL/min/1.73m2 [facility] [place]) eGFR Calculation 167.6 mL/min/1.73m2 [facility] () [facility] Specimen Blood - VENOUS Narrative Performed At Association of Glomerular Filtration Rate (GFR) [facility] and Staging of Kidney Disease* [...] tests). Performing Organization Address City/State/Zipcode Phone Number [facility] CLIA: [id number], [address] [place], [place] [id number] [phone] [facility] [address] documented in this encounter Visit Diagnoses Diagnosis Pleuritic chest pain - Primary Painful respiration Chest pain, unspecified type documented in this encounter Administered Medications Medication Order MAR Action Action Date Dose Rate Site ipratropium-albuterol (DUONEB) 0.5 Given 08/08/2019 2:49 PM [facility] 3 mL mg-3 mg(2.5 mg base)/3 mL nebulizer solution 3 mL 3 mL, Inhalation, ONCE, 1 dose, 08/08/19 at 1545, Routine ketorolac (TORADOL) injection 30 mg Given 08/08/2019 3:52 PM [facility] 30 mg 30 mg, Slow IV Push, ONCE, 1 dose, 3/1/20 at 1630, KIANNA, reconnaissance crewmember approving Restricted medication: Sarah NARANJO documented in this encounter Insurance Payer Benefit Plan Subscriber ID Effective Phone Address Type / Group Dates [facility] [place] [employer] [id number] [address] [place] [address] [place] [address] documented as of this encounter
--- OUTSIDE RECORDS SUMMARY | 2019-08-15 16:55 | XMS REPORT | Summary of Care ---
:1965 Author Organization [facility] Address [address] [place] [address] Care Team Providers Name Role Phone Vilma Morris Primary Care Provider Reason for Visit Reason Comments Appointment Encounter Details Date Type Department Care Team Description 08/06/2019 Telephone [facility] Vilma Samaniego FNP Appointment [address] [address] [place] [address] Allergies No Known Allergiesdocumented as of this encounter (statuses as of 08/06/2019) Medications Medication Sig Dispensed Refills Start Date End Date Status aspirin 81 mg EC Take 81 mg by 0 Active tabletIndications: mouth daily. Coronary artery disease involving [place] coronary artery of [place] heart without angina pectoris, Essential hypertension nitroglycerin 0.[address] 0.4 mg 0 Active sublingual under the tongue tabletIndications: every 5 (five) Coronary artery disease minutes as involving [place] needed for Chest coronary artery of pain. Not to [place] heart without exceed 3 doses angina pectoris, Essential hypertension budesonide-formoterol Inhale 2 Puffs 2 0 Active (SYMBICORT) 160-4.5 (two) times mcg/actuation inhaler daily. levalbuterol 45 Inhale 1-2 Puffs 0 Active mcg/actuation inhaler 3 (three) times daily as needed for Wheezing. atorvastatin 80 mg Take 1 tablet by 30 tablet 5 06/10/2019 Active tabletIndications: mouth at Coronary artery disease bedtime. involving [place] coronary artery of [place] heart without angina pectoris lisinopril 10 mg Take 1 tablet by 30 tablet 4 06/10/2019 Active tabletIndications: mouth daily. Essential hypertension, Coronary artery disease involving [place] coronary artery of [place] heart without angina pectoris clopidogrel 75 mg Take 1 tablet by 30 tablet 5 06/10/2019 Active tabletIndications: mouth daily. Coronary artery disease involving [place] coronary artery of [place] heart without angina pectoris isosorbide mononitrate TAKE 1 TABLET BY 30 tablet 2 06/18/2019 Active 30 mg 24 hr MOUTH ONCE DAILY tabletIndications: Coronary artery disease involving [place] coronary artery of [place] heart without angina pectoris levothyroxine 50 mcg [...] as of this encounter (statuses as of 08/06/2019) Active Problems Problem Noted Date Chest pain 06/18/2019 Coronary artery disease involving [place] heart 11/20/2017 Essential hypertension 11/20/2017 Tobacco abuse 11/20/2017 documented as of this encounter (statuses as of 08/06/2019) Social History Tobacco Use Types Packs/Day Years [...] 08/10/2019 Office Visit Family Medicine Vilma Morris, STATE SUPER[employer]ENT [employer] [address] [place] [address] [phone] Care, Cathy Primary 08/12/2019 Forming And Assembling Supervisor Visit Police Detention Attendant 09/23/2019 Office Visit Pulmonary Disease Demario HernandezDO [address] [place] [address] 11/08/2019 Office Visit Cardiology Soni Galdamez MD [address] [place] [address] [place] [phone] Health Maintenance Due Date Last Done [...] Address Type / Group Dates HARRY MCDONALD [id number] 2017-Prese [phone] [facility] PRIMARY CARE nt [address] [place] [address] [place] HARRY COCarmela [id number] [address] [address] [facility] nt [address] [facility] [place] [address] documented as of this encounter
--- OUTSIDE RECORDS SUMMARY | 2019-08-15 16:56 | XMS REPORT | Summary of Care ---
:1965 Author Organization [facility] Address [address] [place] [address] Care Team Providers Name Role Phone Vilma Morris Primary Care Provider Reason for Referral (Routine) Status Reason Specialty Diagnoses / Referred By Referred To Procedures Contact Contact New Request Pulmonary Function Diagnoses Dyspnea, unspecified type Vilma Morris, Technologist Procedures DIAGNOSTIC PROCEDURE Preferred Location: [facility] PFT Lab-Main CHILD DEVELOPMENT PROFESSOR [address] [place] [address] (Routine) Status Reason Specialty Diagnoses / Referred By Referred To Procedures Contact Contact New Request Pulmonary Disease Diagnoses Dyspnea, unspecified type Vilma Morris, Procedures CONSULT/REFERRAL PULMONARY CHILD DEVELOPMENT PROFESSOR [address] [place] [address] (KIANNA) Status Reason Specialty Diagnoses / Referred By Referred To Procedures Contact Contact New Request Cardiology Diagnoses Coronary artery disease involving [place] coronary artery of [place] heart without angina pectoris Vilma Morris FNP Prasad, Sendil Procedures CONSULT/REFERRAL [facility] [address] [facility] MD Dameon [place], [place] [address] [address] [address] 106 Phone: [place], [place] [phone] (KIANNA) Status Reason Specialty Diagnoses / Referred By Referred To Procedures Contact Contact New Request Cardiology Diagnoses Coronary artery disease involving [place] coronary artery of [place] heart without angina pectoris Vilma Morris FNP Procedures CONSULT/REFERRAL CARDIOLOGY [address] [place] [address] Reason for Visit Reason Comments Follow-up Discuss test results Encounter Details Date Type Department Care Team Description 08/10/2019 Office Visit [facility] Vilma Skelton, CHILD DEVELOPMENT PROFESSOR [address] [place] [address] Coronary artery disease involving [place] coronary artery of [place] heart without angina pectoris (Primary Dx); [facility] Primary Dyspnea, unspecified type; Clinic Tobacco abuse [address] [place] [address], [address] [place] [address] Allergies No Known Allergiesdocumented as of this encounter (statuses as of 08/10/2019) Medications Medication Sig Dispensed Refills Start Date End Date Status aspirin 81 mg EC Take 81 mg by 0 Active tabletIndications: mouth daily. Coronary artery disease involving [place] coronary artery of [place] heart without angina pectoris, Essential hypertension nitroglycerin 0.[address] 0.4 mg 0 Active sublingual under the tongue tabletIndications: every 5 (five) Coronary artery disease minutes as involving [place] needed for Chest coronary artery of pain. Not to [place] heart without exceed 3 doses angina pectoris, Essential hypertension budesonide-formoterol Inhale 2 Puffs 2 0 Active (SYMBICORT) 160-4.5 (two) times mcg/actuation inhaler daily. levalbuterol 45 Inhale 1-2 Puffs 0 Active mcg/actuation inhaler 3 (three) times daily as needed for Wheezing. atorvastatin 80 mg Take 1 tablet by 30 tablet 5 06/10/2019 Active tabletIndications: mouth at Coronary artery disease bedtime. involving [place] coronary artery of [place] heart without angina pectoris lisinopril 10 mg Take 1 tablet by 30 tablet 4 06/10/2019 Active tabletIndications: mouth daily. Essential hypertension, Coronary artery disease involving [place] coronary artery of [place] heart without angina pectoris clopidogrel 75 mg Take 1 tablet by 30 tablet 5 06/10/2019 Active tabletIndications: mouth daily. Coronary artery disease involving [place] coronary artery of [place] heart without angina pectoris isosorbide mononitrate TAKE 1 TABLET BY 30 tablet 2 06/18/2019 Active 30 mg 24 hr MOUTH ONCE DAILY tabletIndications: Coronary artery disease involving [place] coronary artery of [place] heart without angina pectoris levothyroxine 50 mcg [...] as of this encounter (statuses as of 08/10/2019) Active Problems Problem Noted Date Chest pain 06/18/2019 Coronary artery disease involving [place] heart 11/20/2017 Essential hypertension 11/20/2017 Tobacco abuse 11/20/2017 documented as of this encounter (statuses as of 08/10/2019) Social History Tobacco Use Types Packs/Day Years [...] Sign Reading Time Taken Comments Blood Pressure 111/70 08/10/2019 9:02 AM FOUNTAIN JERK Pulse 83 08/10/2019 9:02 AM FOUNTAIN JERK Temperature 36.2 C (97.2 F) 08/10/2019 9:02 AM FOUNTAIN JERK Respiratory Rate 20 08/10/2019 9:02 AM FOUNTAIN JERK Oxygen Saturation - - Inhaled Oxygen Concentration - - Weight 86 kg (189 lb 9.6 oz) 08/10/2019 9:02 AM FOUNTAIN JERK Height 185.4 cm (6' 1") 08/10/2019 9:02 AM FOUNTAIN JERK Body Mass Index 25.01 08/10/2019 9:02 AM FOUNTAIN JERK documented in this encounter Progress Notes Vilma Morris, CHILD DEVELOPMENT PROFESSOR - 08/10/2019 9:00 AM CST Cc: Chief Complaint Patient presents with Follow-up Discuss test results HPI Garcia Matta is a 54 year old male who is concerned about the size, location and extent of the aneurysm? He is concerned about what will happen if the aneurysm become unstable or opens?. Will he have another heart attack?. Can is be surgically bypassed?. Is it life threatening if it opens?. Allare appropriate questions He understands that he needs to see Dr Galdamez but has not been scheduled as of yet. Would like referral Findings of [facility] were as follows: coronary dominance: right left main: Normal LAD: [...] test, recommend aggressive medical treatment for it. Seen by pulmonary on 07/29/19 asked to have PFT and continue with symbicort and ProAir follow up 4 wks or after the PFTs are done PFTs are scheduled for 08/12/19 and Follow up appointment with Dr Hoffman on 09/23/19 Other than being very concerned about his health, he is doing fine. Is still smoking. Still has fatigue at the end to the day. Has to take a nap after lunch. Denies fevers or chills. Allergies Garcia has No Known Allergies. Medications Outpatient Medications Prior to Visit Medication Sig Dispense Refill methylPREDNISolone (MEDROL, DEREK,) 4 mg tablets Take by mouth SEE- INSTRUCTIONS. follow package directions 21 Each 0 oacjditzue-svaugkwgtqamm-nyju 50-325-40 mg tablet Take 1 tablet by mouth every 4 (four) hours asneeded for Pain (scale 4-6). 28 tablet 0 metoprolol succinate XL 25 mg 24 hr tablet Take 1 tablet by mouth every 12 ( twelve) hours. 60 tablet 2 ibuprofen 600 mg tablet Take 1 tablet [...] by mouth at bedtime. 30 tablet 5 budesonide-formoterol (SYMBICORT) 160-4.5 mcg/actuation inhaler Inhale 2 Puffs 2 (two) times daily. clopidogrel 75 mg tablet Take 1 tablet [...] file Gets together: Not on file Attends pentecostalism service: Not on file Active member of [...] Skin: Negative. Neurological: Positive for dizziness and weakness Vital Signs BP 111/70 (BP Location: Left arm, Patient Position: Sitting) | Pulse 83 | Temp 36.2 C (97.2 F)(Oral) | Resp 20 | Ht 6' 1" (1.854 m) | Wt 189 lb 9.6 oz (86 kg) | BMI 25.01 kg/m Physical Exam Constitutional: He is oriented to person, place, and time. He appears well- developed and well-nourished. No distress. Mouth/Throat: Oropharynx is clear and moist. Extensive Dental Carries. Multiple missing teeth Neck: Normal range of motion. Cardiovascular: Normal rate, regular rhythm and normal heart sounds. Pulmonary/Chest: Effort normal and breath sounds normal. Musculoskeletal: Normal range of motion. Neurological: He is alert and oriented to person, place, and time. Skin: Skin is warm and dry. Psychiatric: He has a normal mood and affect, but subdued. His behavior is normal. Judgment and thought content normal. Assessment/Plan 1. Coronary artery disease involving [place] coronary artery of [place] heart without angina pectoris - CONSULT/REFERRAL CARDIOLOGY - CONSULT/REFERRAL [facility] 2. Dyspnea, unspecified type - CONSULT/REFERRAL PULMONARY - DIAGNOSTIC PROCEDURE Preferred Location: [facility] PFT Lab-Main 3. Tobacco abuse Patient reports that he has been smoking cigarettes. He started smoking about 39 years ago. He has a 17.50 pack-year smoking history. He has never used smokeless tobacco. Ready to quit: Not Answered Counseling given: Not Answered Previous attempts: multiple Patient counseled and recommendation for behavioral therapy given.Stressed importance of stopping with his current cardiac and pulmonary issues Pt states he understands and will do his best to quit. Appropriate plan of care, desired health behaviors, goals and medications discussed with patient andeducational resources and self-management tools provided, as applicable. Patient/family/guardian voice understanding. Barriers to adherence: none Ability to manage care: Good As necessary, prescribed medications and potential significant medication side effects or medicationinteractions were discussed with the patient and pt will let me know if any occur. ED warnings given The patient indicates understanding of these issues and agrees with the plan. Vilma [facility] : ove Anderson LVN - 08/10/2019 9:00 AM CSTGarcia Matta is a 54 year old male Patient here today for follow up to discuss test results. Reports 0 pain on scale 0/10, MD notified.Reviewed medications and allergies with patient today. Fall Risk Assessment/Screening performed with patient today and patient is not at risk for falls. documented in this encounter Plan of Treatment Date Type Specialty Care Team Description 08/12/2019 Dental Laboratory Worker Visit Medical Fee Clerk 09/23/2019 Office Visit Pulmonary Disease Demario Hernandez DO [address] [place] [address] 11/08/2019 Office Visit Cardiology Soni Galdamez MD [address] [address] Name Type Priority Associated Diagnoses Order Schedule DIAGNOSTIC PROCEDURE PULMONARY FUNCTION Routine Dyspnea, unspecified Ordered: Preferred Location: LAB type 08/10/2019 [facility] PFT Lab-Main Health Maintenance Due Date [...] Visit Diagnoses Diagnosis Coronary artery disease involving [place] coronary artery of [place] heart without angina pectoris - Primary Dyspnea, unspecified type Tobacco abuse Tobacco use disorder documented in this encounter Insurance Payer Benefit Plan / Subscriber ID Effective Phone Address Type Group Dates HARRY MCDONALD [id number] 2017-Dany [phone] [facility] PRIMARY CARE PRIMARY CARE [address] [place] [address] documented as of this encounter
--- OUTSIDE RECORDS SUMMARY | 2019-08-15 16:56 | XMS REPORT | Summary of Care ---
:1965 Author Organization [facility] Address [address] [place] [id number] Care Team Providers Name Role Phone Vilma Morris Primary Care Provider Reason for Referral (Routine) Status Reason Specialty Diagnoses / Referred By Referred To Procedures Contact Contact New Request Pulmonary Function Diagnoses Dyspnea, unspecified type Vilma Morris, Technologist Procedures DIAGNOSTIC PROCEDURE Preferred Location: [facility] PFT Lab-Main SR. MANAGER [address] [place] [address] (Routine) Status Reason Specialty Diagnoses / Referred By Referred To Procedures Contact Contact New Request Pulmonary Disease Diagnoses Dyspnea, unspecified type Vilma Morris, Procedures CONSULT/REFERRAL PULMONARY SR. MANAGER [address] [place] [address] (KIANNA) Status Reason Specialty Diagnoses / Referred By Referred To Procedures Contact Contact New Request Cardiology Diagnoses Coronary artery disease involving [place] coronary artery of [place] heart without angina pectoris Vilma Morris FNP Prasad, Sendil Procedures CONSULT/REFERRAL [facility] [address] [facility] MD Dameon [place], [place] [address] [address] [address] 106 Phone: [place], [place] [phone] [address] (KIANNA) Status Reason Specialty Diagnoses / Referred By Referred To Procedures Contact Contact New Request Cardiology Diagnoses Coronary artery disease involving [place] coronary artery of [place] heart without angina pectoris Vilma Morris FNP Procedures CONSULT/REFERRAL CARDIOLOGY [address] [place] [address] Reason for Visit Reason Comments Follow-up Discuss test results Encounter Details Date Type Department Care Team Description 08/10/2019 Office Visit [facility] Vilma Skelton, SR. MANAGER [address] [place] [address] Coronary artery disease involving [place] coronary artery of [place] heart without angina pectoris (Primary Dx); [facility] Primary Dyspnea, unspecified type; Clinic Tobacco abuse [address] [place] [address], [address] [place] [address] Allergies No Known Allergiesdocumented as of this encounter (statuses as of 08/10/2019) Medications Medication Sig Dispensed Refills Start Date End Date Status aspirin 81 mg EC Take 81 mg by 0 Active tabletIndications: mouth daily. Coronary artery disease involving [place] coronary artery of [place] heart without angina pectoris, Essential hypertension nitroglycerin 0.[address] 0.4 mg 0 Active sublingual under the tongue tabletIndications: every 5 (five) Coronary artery disease minutes as involving [place] needed for Chest coronary artery of pain. Not to [place] heart without exceed 3 doses angina pectoris, Essential hypertension budesonide-formoterol Inhale 2 Puffs 2 0 Active (SYMBICORT) 160-4.5 (two) times mcg/actuation inhaler daily. levalbuterol 45 Inhale 1-2 Puffs 0 Active mcg/actuation inhaler 3 (three) times daily as needed for Wheezing. atorvastatin 80 mg Take 1 tablet by 30 tablet 5 06/10/2019 Active tabletIndications: mouth at Coronary artery disease bedtime. involving [place] coronary artery of [place] heart without angina pectoris lisinopril 10 mg Take 1 tablet by 30 tablet 4 06/10/2019 Active tabletIndications: mouth daily. Essential hypertension, Coronary artery disease involving [place] coronary artery of [place] heart without angina pectoris clopidogrel 75 mg Take 1 tablet by 30 tablet 5 06/10/2019 Active tabletIndications: mouth daily. Coronary artery disease involving [place] coronary artery of [place] heart without angina pectoris isosorbide mononitrate TAKE 1 TABLET BY 30 tablet 2 06/18/2019 Active 30 mg 24 hr MOUTH ONCE DAILY tabletIndications: Coronary artery disease involving [place] coronary artery of [place] heart without angina pectoris levothyroxine 50 mcg [...] Chest pain 06/18/2019 Coronary artery disease involving [place] heart 11/20/2017 Essential hypertension 11/20/2017 Tobacco abuse [...] Comments Blood Pressure 111/70 08/10/2019 9:02 AM DRAFTER CONSTRUCTION Pulse 83 08/10/2019 9:02 AM DRAFTER CONSTRUCTION Temperature 36.2 C (97.2 F) 08/10/2019 9:02 AM DRAFTER CONSTRUCTION Respiratory Rate 20 08/10/2019 9:02 AM DRAFTER CONSTRUCTION Oxygen Saturation - - Inhaled Oxygen Concentration - - Weight 86 kg (189 lb 9.6 oz) 08/10/2019 9:02 AM DRAFTER CONSTRUCTION Height 185.4 cm (6' 1") 08/10/2019 9:02 AM DRAFTER CONSTRUCTION Body Mass Index 25.01 08/10/2019 9:02 AM DRAFTER CONSTRUCTION documented in this encounter Progress Notes Vilma Morris, SR. MANAGER - 08/10/2019 9:00 AM CST Cc: Chief [...] of yet. Would like referral Findings of [facility] were as follows: coronary dominance: right [...] INSTRUCTIONS. follow package directions 21 Each 0 xuujzawoko-xcalivwepvwkz-mqjj 50-325-40 mg tablet Take 1 tablet by [...] disease Past Surgical History: Procedure Laterality Date PA CSI ANY OTHER THAN PCI 2 YR [...] file Gets together: Not on file Attends jain service: Not on file Active member of [...] normal. Assessment/Plan 1. Coronary artery disease involving [place] coronary artery of [place] heart without angina pectoris - CONSULT/REFERRAL CARDIOLOGY - CONSULT[facility]ERRAL [facility] 2. Dyspnea, unspecified type - CONSULT/REFERRAL PULMONARY - DIAGNOSTIC PROCEDURE Preferred Location: [facility] PFT Lab-Main 3. Tobacco abuse Patient reports [...] issues and agrees with the plan. Vilma [facility] : ove Anderson LVN - 08/10/2019 9:00 [...] Date Type Specialty Care Team Description 08/12/2019 Turpentine Distiller Visit Marketing Technologist 09/23/2019 Office Visit Pulmonary Disease Demario Hernandez DO [address] [place] [address] 11/08/2019 Office Visit Cardiology Soni Galdamez MD [address] [address] Name Type Priority Associated Diagnoses [...] Visit Diagnoses Diagnosis Coronary artery disease involving [place] coronary artery of [place] heart without angina pectoris - Primary Dyspnea, unspecified type Tobacco abuse Tobacco use disorder documented in this encounter Insurance Payer Benefit Plan / Subscriber ID Effective Phone Address Type Group Dates HARRY MCDONALD [id number] 2016-Dany [phone] [facility] PRIMARY CARE PRIMARY CARE [address] [place] [address] documented as of this encounter
--- NOTE | 2019-08-15 18:08 | RAD REPORT ---
EXAM DESCRIPTION: RAD - Chest Single View - 08/15/2019 5:55 pm CLINICAL HISTORY: Chest pain;Dyspnea Chest pain. COMPARISON: Chest Single View dated 07/26/2019; Chest Single View dated 05/24/2019; Chest Single View dated 04/19/2019; Chest Pa And Lat (2 Views) dated 02/12/2019 FINDINGS: Portable technique limits examination quality. Mild linear opacities are present in the left lung base. The lungs are otherwise clear. The heart is normal in size. No displaced fractures. IMPRESSION: No acute intrathoracic process suspected.
[2019-08-15 18:10] LABS: Absolute Lymphocytes (CBC) 2.3 K/uL (0.7-4.9); Basophils % 0.8 % (0-1.3); Hematocrit 42.1 % (39.6-49.0); Lymphocytes % 26.4 % (15.3-44.8); MPV 9.9 fL (7.6-11.3); RBC Red Blood Cell Count 4.64 M/uL (4.33-5.43)
[2019-08-15] MEDS ORDERED: IBUPROFEN 400 MG TAB ONE (18:35)
[2019-08-15] MEDS ORDERED: METHYLPREDNISOLONE 125 MG INJ ONE (18:35)
[2019-08-15] MEDS ORDERED: LEVALBUTEROL 1.25 MG/3 ML NEB ONE (18:35)
[2019-08-15 18:43] LABS: BUN Blood Urea Nitrogen 13 mg/dL (7-18); NT PRO-BNP 82 pg/mL (<125); Troponin (Emerg Dept Use Only) < 0.02 ng/mL (0.0-0.045)
[2019-08-15 18:44] LABS: Bicarbonate 25 mmol/L (21-32); Glucose Level 104 mg/dL (74-106)
--- NOTE | 2019-08-15 18:49 | ER ---
Nurse's Notes [facility] Name: Garcia Matta Age: 54 yrs Sex: Male : 1965 Arrival Date: 08/15/2019 Time: 16:50 Bed 2 Private MD: Diagnosis: Chronic obstructive pulmonary disease, unspecified;Chest pain, unspecified;Pleurisy Presentation: 08/14 16:53 Chief complaint: Patient states: Shortness of breath and chest pain when he takes a aj1 deep breath for the past 3 hours. Denies fever. Reports productive cough. Coronavirus screen: The patient has NOT traveled to a country currently being monitored by the CDC within the last 14 days. Ebola Screen: Patient denies travel to an Ebola-affected area in the 21 days before illness onset. Initial Sepsis Screen: Does the patient meet any 2 criteria? No. Patient's initial sepsis screen is negative. Does the patient have a suspected source of infection? Yes: Productive cough/pneumonia. Risk Assessment: Do you want to hurt yourself or someone else? Patient reports no desire to harm self or others. 16:53 Method Of Arrival: EMS: [facility] aj1 16:53 Acuity: CATARINA 3 aj1 Triage Assessment: 17:01 General: Appears in no apparent distress. uncomfortable, Behavior is calm, cooperative, aj1 appropriate for age. Pain: Complains of pain in anterior aspect of left upper chest Pain does not radiate. Pain currently is 7 out of 10 on a pain scale. Respiratory: Reports shortness of breath Onset: The symptoms/episode began/occurred 3 hours ago, the patient has mild shortness of breath. Historical: - Allergies: 17:01 No Known Allergies; aj1 - Home Meds: 17:01 aspirin 81 mg Oral chew 1 tab once daily [Active]; lisinopril 10 mg oral tab once daily aj1 [Active]; levothyroxine 50 mcg tab 1 tab once daily [Active]; Plavix 75 mg Oral tab once daily [Active]; isosorbide mononitrate 30 mg Oral Tb24 1 tab once daily [Active]; metoprolol tartrate 25 mg Oral tab 1 tab 2 times per day [Active]; atorvastatin 80 mg Oral tab once daily [Active]; Symbicort inhalation inhalation [Active]; Albuterol Inhl [Active]; - PMHx: 17:01 Hypertension; Pneumothorax; Myocardial infarction; CAD; Hyperlipidemia; heart murmur; aj1 "aneursym on heart"; GERD; COPD; - Immunization history:: Flu vaccine is not up to date. - Social history:: Smoking status: Patient/guardian denies using tobacco, Patient/guardian denies using alcohol, street drugs. - Family history:: not pertinent. - Hospitalizations: : Patient was recently seen at. Screenin:01 Abuse screen: Denies threats or abuse. Denies injuries from another. Nutritional aj1 screening: No deficits noted. Tuberculosis screening: No symptoms or risk factors identified. Assessment: 17:01 General: Appears in no apparent distress. uncomfortable, Behavior is calm, cooperative, aj1 appropriate for age. Pain: Complains of pain in anterior aspect of left upper chest Pain does not radiate. Pain currently is 7 out of 10 on a pain scale. Quality of pain is described as sharp, Pain began 3 hours ago. Is intermittent, Aggravated by deep breathing. Neuro: Level of Consciousness is awake, alert, obeys commands, Oriented to person, place, time, situation. Cardiovascular: Reports chest pain, shortness of breath, Heart tones S1 S2 present Patient's skin is warm and dry. Rhythm is sinus rhythm. Respiratory: Reports shortness of breath at rest cough that is productive, Airway is patent Respiratory effort is even, unlabored, Respiratory pattern is regular, symmetrical, Breath sounds with wheezes bilaterally. GI: No signs and/or symptoms were reported involving the gastrointestinal system. : No signs and/or symptoms were reported regarding the genitourinary system. EENT: No signs and/or symptoms were reported regarding the EENT system. Derm: No signs and/or symptoms reported regarding the dermatologic system. Skin is pink, warm \\T\\ dry. normal. Musculoskeletal: No signs and/or symptoms reported regarding the musculoskeletal system. Circulation, motion, and sensation intact. 18:14 Reassessment: Patient appears in no apparent distress at this time. No changes from aj1 previously documented assessment. Patient and/or family updated on plan of care and expected duration. Pain level reassessed. Patient is alert, oriented x 3, equal unlabored respirations, skin warm/dry/pink. 19:20 Reassessment: Patient appears in no apparent distress at this time. Patient is alert, rr5 oriented x 3, equal unlabored respirations, skin warm/dry/pink. discharge instruction given and explained without complaints made. Patient states feeling better. Patient states symptoms have improved. Vital Signs: 16:53 BP 139 / 89; Pulse 85; Resp 16; Temp 98.3; Pulse Ox 97% on R/A; Weight 86.18 kg (R); aj1 Height 6 ft. 1 in. (185.42 cm) (R); Pain 7/10; 18:15 BP 122 / 85; Pulse 72; Resp 18; Pulse Ox 96% on R/A; aj1 16:53 Body Mass Index 25.07 (86.18 kg, 185.42 cm) aj1 ED Course: 16:50 Patient arrived in ED. aj1 16:51 Kunal Virgen, RN is Primary Nurse. em 16:53 EKG done, by ED staff, reviewed by Radha Pearce RN. em 16:55 Triage completed. aj1 16:57 Missed attempt(s): 20 gauge in right forearm. Bleeding controlled, band aid applied, ms catheter tip intact. 17:01 Will Pickens MD is Attending Physician. rn 17:01 No provider procedures requiring assistance completed. aj1 17:01 Arm band placed on. aj1 17:01 Patient has correct armband on for positive identification. Bed in low position. Call aj light in reach. Side rails up X 1. 17:10 Primary Nurse role handed off by Kunal Virgen, RN aj1 17:10 Radha Pearce, RN is Primary Nurse. aj1 17:20 Initial lab(s) drawn, by wa, sent to lab. Inserted saline lock: 20 gauge in right em forearm, using aseptic technique. Blood collected. 17:55 XRAY Chest (1 view) In Process Unspecified. EDMS 19:20 IV discontinued, intact, bleeding controlled, No redness/swelling at site. Pressure rr5 dressing applied. Administered Medications: 18:38 Drug: SOLU-Medrol 125 mg Route: IVP; Site: right forearm; em 19:20 Follow up: Response: No adverse reaction rr5 18:38 Drug: Motrin 800 mg Route: PO; em 19:20 Follow up: Response: No adverse reaction rr5 18:50 Drug: Xopenex 1.25 mg Route: Inhalation; em 19:20 Follow up: Response: No adverse reaction rr5 Outcome: 18:49 Discharge ordered by . rn 19:20 Discharged to home ambulatory. rr5 19:20 Condition: stable 19:20 Discharge instructions given to patient, Instructed on discharge instructions, follow up and referral plans. medication usage, Demonstrated understanding of instructions, follow-up care, medications, Prescriptions given X 1. 19:22 Patient left the ED. rr5 Signatures: Dispatcher [employer] Radha Anaya RN RN aj1 Kunal Virgen RN RN Linda Shah ms, Roman, MD MD rn Roque, Raymond, RN RN rr5
--- NOTE | 2019-08-15 18:50 | EDPHYS ---
Physician Documentation [facility] Name: Garcia Matta Age: 54 yrs Sex: Male : 1965 Arrival Date: 08/15/2019 Time: 16:50 Bed 2 Private MD: ED Physician Will Pickens HPI: 08/14 17:50 This 54 yrs old Male presents to ER via EMS with complaints of Shortness Of rn Breath, Chest Pain. 17:50 Onset: The symptoms/episode began/occurred 3 hour(s) ago. Duration: The symptoms are rn intermittent. The patient's shortness of breath is aggravated by deep breath. Severity of symptoms: At their worst the symptoms were mild in the emergency department the symptoms are unchanged. The patient has experienced similar episodes in the past. Reports chest pain, bilateral, assoc with mild sob, worse with deep breath. reports used inhaler but didn't go away. Had heart cath 1.5 weeks ago and no stent placed, recommended medical therapy for CAD. Denies fever. No hx of DVT/PE. No hemoptysis. No trauma. reports this feels different from when had LA. Lasts for a second and only with deep breath. . Historical: - Allergies: 17:01 No Known Allergies; aj1 - Home Meds: 17:01 aspirin 81 mg Oral chew 1 tab once daily [Active]; lisinopril 10 mg oral tab once daily aj1 [Active]; levothyroxine 50 mcg tab 1 tab once daily [Active]; Plavix 75 mg Oral tab once daily [Active]; isosorbide mononitrate 30 mg Oral Tb24 1 tab once daily [Active]; metoprolol tartrate 25 mg Oral tab 1 tab 2 times per day [Active]; atorvastatin 80 mg Oral tab once daily [Active]; Symbicort inhalation inhalation [Active]; Albuterol Inhl [Active]; - PMHx: 17:01 Hypertension; Pneumothorax; Myocardial infarction; CAD; Hyperlipidemia; heart murmur; aj1 "aneursym on heart"; GERD; COPD; - Immunization history:: Flu vaccine is not up to date. - Social history:: Smoking status: Patient/guardian denies using tobacco, Patient/guardian denies using alcohol, street drugs. - Family history:: not pertinent. - Hospitalizations: : Patient was recently seen at. ROS: 17:50 Constitutional: Negative for fever, chills, and weight loss, Eyes: Negative for injury, rn pain, redness, and discharge, Neck: Negative for injury, pain, and swelling, Cardiovascular: Negative for palpitations, and edema, Respiratory: + for shortness of breath, cough, wheezing Abdomen/GI: Negative for abdominal pain, nausea, vomiting, diarrhea, and constipation, MS/Extremity: Negative for injury and deformity, Skin: Negative for injury, rash, and discoloration, Neuro: Negative for headache, weakness, numbness, tingling, and seizure. Exam: 17:50 Constitutional: This is a well developed, well nourished patient who is awake, alert, rn and in no acute distress. Head/Face: Normocephalic, atraumatic. ENT: MMM, no stridor Cardiovascular: Regular rate and rhythm, + systolic murmur, No pulse deficits. Respiratory: Faint exp wheezing bilaterally, no retractions. Speaking full sentences. Abdomen/GI: soft, non-tender Skin: Warm, dry with normal turgor. Normal color with no rashes, no lesions, and no evidence of cellulitis. MS/ Extremity: Pulses equal, no cyanosis. Neurovascular intact. Full, normal range of motion. Equal circumference. Neuro: Awake and alert, GCS 15, oriented to person, place, time, and situation. Cranial nerves II-XII grossly intact. Motor strength 5/5 in all extremities. Sensory grossly intact. Cerebellar exam normal. 17:56 ECG was reviewed by the Attending Physician. rn Vital Signs: 16:53 BP 139 / 89; Pulse 85; Resp 16; Temp 98.3; Pulse Ox 97% on R/A; Weight 86.18 kg (R); aj1 Height 6 ft. 1 in. (185.42 cm) (R); Pain 7/10; 18:15 BP 122 / 85; Pulse 72; Resp 18; Pulse Ox 96% on R/A; aj1 16:53 Body Mass Index 25.07 (86.18 kg, 185.42 cm) aj1 MDM: 17:01 Patient medically screened. rn 18:27 Differential diagnosis: Chronic Obstructive Pulmonary Disease Myocardial Infarction rn pneumonia, Pneumothorax pulmonary edema. Data reviewed: vital signs, nurses notes, lab test result(s), EKG, radiologic studies, plain films, and as a result, I will discharge patient. Counseling: I had a detailed discussion with the patient and/or guardian regarding: the historical points, exam findings, and any diagnostic results supporting the discharge/admit diagnosis, lab results, radiology results, the need for outpatient follow up, to return to the emergency department if symptoms worsen or persist or if there are any questions or concerns that arise at home. 08/14 17:12 Order name: Basic Metabolic Panel rn 08/14 17:12 Order name: CBC with Diff; Complete Time: 18:19 rn 08/14 17:12 Order name: NT PRO-BNP rn 08/14 17:12 Order name: Troponin (emerg Dept Use Only) rn 08/14 17:12 Order name: XRAY Chest (1 view); Complete Time: 18:19 rn 08/14 17:12 Order name: EKG; Complete Time: 17:24 rn 08/14 17:12 Order name: Cardiac monitoring; Complete Time: 17:13 rn 08/14 17:12 Order name: EKG - Nurse/Tech; Complete Time: 17:13 rn 08/14 17:12 Order name: IV Saline Lock; Complete Time: 17:28 rn 08/14 17:12 Order name: Labs collected and sent; Complete Time: 17:28 rn 08/14 17:12 Order name: O2 Per Protocol; Complete Time: 17:15 rn 08/14 17:12 Order name: O2 Sat Monitoring; Complete Time: 17:15 rn EC:56 Rate is 84 beats/min. Rhythm is regular. QRS [place] is Normal. [place] interval is normal. QRS rn interval is normal. QT interval is normal. No Q waves. T waves are Normal. No ST changes noted. Clinical impression: Normal ECG and PVCs. Interpreted by me. Reviewed by me. Administered Medications: 18:38 Drug: SOLU-Medrol 125 mg Route: IVP; Site: right forearm; em 19:20 Follow up: Response: No adverse reaction rr5 18:38 Drug: Motrin 800 mg Route: PO; em 19:20 Follow up: Response: No adverse reaction rr5 18:50 Drug: Xopenex 1.25 mg Route: Inhalation; em 19:20 Follow up: Response: No adverse reaction rr5 Disposition: 08/15/19 18:49 Discharged to Home. Impression: Chronic obstructive pulmonary disease, unspecified, Chest pain, unspecified, Pleurisy. - Condition is Stable. - Discharge Instructions: Nonspecific Chest Pain, Chronic Obstructive Pulmonary Disease, Pleurisy. - Prescriptions for Prednisone 20 mg Oral Tablet - take 3 tablet by ORAL route once daily for 5 days; 15 tablet. - Medication Reconciliation Form, Thank You Letter, Antibiotic Education, Prescription Opioid Use form. - Follow up: Private Physician; When: As needed; Reason: Recheck today's complaints, Re-evaluation by your physician. - Problem is new. - Symptoms have improved. Signatures: Dispatcher [employer] EDRadha Merchant RN RN aj1 Kunal Virgen RN RN Will Rod MD MD rn Roque, Raymond, RN RN rr5 Corrections: (The following items were deleted from the chart) 19:22 18:49 08/15/2019 18:49 Discharged to Home. Impression: Chronic obstructive pulmonary rr5 disease, unspecified; Chest pain, unspecified; Pleurisy. Condition is Stable. Discharge Instructions: Nonspecific Chest Pain, Chronic Obstructive Pulmonary Disease, Pleurisy. Prescriptions for Prednisone 20 mg Oral Tablet - take 3 tablet by ORAL route once daily for 5 days; 15 tablet. and Forms are Medication Reconciliation Form, Thank You Letter, Antibiotic Education, Prescription Opioid Use. Follow up: Private Physician; When: As needed; Reason: Recheck today's complaints, Re-evaluation by your physician. Problem is new. Symptoms have improved. rn
[2019-08-15 19:04] LABS: Potassium 3.6 mmol/L (3.5-5.1); Sodium Level 139 mmol/L (136-145)
[2019-08-15 19:28] VITALS: TEMP 98.3
[2019-08-15 19:29] VITALS: BP 122/85; O2SAT 96
--- NOTE | 2019-08-16 07:29 | EKG ---
Test Date: 2019-08-15 Test Time: 15:53:47 Professor Of Archaeology: BIANCA MEASUREMENT RESULTS: Intervals: Rate: 84 WA: 148 QRSD: 96 QT: 372 QTc: 439 [place]: P: 68 WA: 148 QRS: 50 T: 87 INTERPRETIVE STATEMENTS: Sinus rhythm with occasional premature ventricular complexes Otherwise normal ECG Compared to ECG 05/25/2019 10:43:57 Ventricular premature complex(es) now present Electronically Signed On 08-16-19 07:28:53 CDT by Ad Deng
== END 2019-08-15 19:22 | disposition home or self-care (01) ==
LOC: ER 16:46
DX: J44.9 Chronic obstructive pulmonary disease, unspecified (principal); R09.1 Pleurisy; R07.9 Chest pain, unspecified; I10 Essential (primary) hypertension; E78.5 Hyperlipidemia, unspecified; Z79.01 Long term (current) use of anticoagulants; Z79.82 Long term (current) use of aspirin
CPT/HCPCS: 36415; 71045; 80048; 83880; 84484; 85025; 93005; 96374; 99285; J2930

== ENCOUNTER 2021-07-25 22:23 | Observation (INO) | payer SELFPAY ==
--- OUTSIDE RECORDS SUMMARY | 2021-07-25 22:32 | XMS REPORT | Continuity of Care Document ---
:1965 Author Organization [facility] t Address [address] [place] [address] Care Team Providers Name Role Phone CATHLEEN Primary Care Physician Unavailable Cathleen MASTERS Attending Clinician Miranda PACHECO, K.H. Attending Clinician MIRANDA, K.H. Attending Clinician Unavailable Pc, Vascular Room 1 - Attending Clinician Unavailable Elvis PACHECO Attending Clinician ELVIS Attending Clinician Unavailable Doctor Unassigned, Name Attending Clinician Unavailable DAMARIS Attending Clinician Unavailable DAMARIS Attending Clinician Unavailable Damaris LARA Attending Clinician Care, Primary Attending Clinician Unavailable CATHLEEN Attending Clinician Unavailable Care, Primary Attending Clinician Unavailable MARY NARANJO Attending Clinician Unavailable Mary Trevino Attending Clinician Toño Odell MD Attending Clinician Aline Almanzar MD Attending Clinician Outpt-Dalila Attending Clinician Unavailable TOÑO ODELL Attending Clinician Unavailable Mikla WHITESIDE Attending Clinician Unavailable Mikal Jaramillo Attending Clinician ALVAREZ Attending Clinician Unavailable Kadi Card Attending Clinician MILVIA Attending Clinician Unavailable MARY NARANJO Admitting Clinician Unavailable Mikal WHITESIDE Admitting Clinician Unavailable ALVAREZ Admitting Clinician Unavailable MILVIA Admitting Clinician Unavailable Payers Payer Name Policy Type Policy Number Effective Date Expiration Date Mikal gerard [employer] [id number] 2017 00:00:00 Problems Condition Condition Condition Status Onset Resolution Last Treating Co mments Source Name Details Category Date Date Treatment Clinician Date Chest pain Chest pain Disease Active U nivers 1-10 ity of 00:00: [place] 00 [facility] Coronary Coronary Disease Active Unive rs artery artery 6-14 ity of disease disease 00:00: [place] involving involving 00 Medi jeremiah resighini resighini Branch heart heart Essential Essential Disease Active Uni vers hypertensi hypertensi 6-14 it y of on on 00:00: [place] 00 [facility] Tobacco Tobacco Disease Active Univers abuse abuse 6-14 ity of 00:00: [place] 00 [facility] Allergies, Adverse Reactions, Alerts Allergy Allergy Status Severity Reaction(s) Onset Inactive Treating Comm ents Source Name Type Date Date Clinician NO KNOWN Drug Active Univers ALLERGIE Class ity of S [facility] Social History Social Habit Start Date Stop Date Quantity Comments Source History of tobacco 1979-11-21 Cigarette Smoker University of use 00:00:00 [facility] Exposure to Not sure [place] of SARS-CoV-2 (event) [facility] Sex Assigned At Universit y of [facility] Cigarettes smoked 2019-11-05 2019-11-05 Univers ity of current (pack per 00:00:00 00:00:00 [place] ) - Reported Branch Cigarette 2019-11-05 2019-11-05 University of pack-years 00:00:00 00:00:00 [facility] Alcohol intake 2019-11-05 2019-11-05 Ex-drinker University of 00:00:00 00:00:00 (finding) [facility] Tobacco use and 2019-11-05 2019-11-05 Never used Universit y of exposure 00:00:00 00:00:00 [facility] Tobacco Comment 2019-08-24 2019-08-24 currently down Unive rsity of 00:00:00 00:00:00 to 1 cigg a day [place] Med ical 08/24/19 Branch Alcohol Comment 2017-11-20 2017-11-20 SOCIAL Universit y of 00:00:00 00:00:00 [facility] Smoking Status Start Date Stop Date Source Current every day smoker 2019-11-05 00:00:00 Uni versity of [facility] Medications Ordered Filled Start Stop Current Ordering Indication Dosage Frequency Signature Comments Components Source Medication Medication Date Date Medication? Clinician (SIG) Name Name MO 50 2019-06 Yes [id number] TAKE 1 Univers mcg tablet 0-13 TABLET BY ity of 00:00: MOUTH ONCE 00 DAILY IN Medical THE Branch MORNING ISOSORBIDE 2020-1 Yes [id number] Take 1 Univers MONONITRATE 0-13 tablet by ity of 30 mg 24 hr 00:00: mouth once [place] tablet 00 daily Medical Branch LISINOPRIL 2020-1 Yes [id number] Take 1 Univers 10 mg 0-13 tablet by ity of tablet 00:00: mouth once 00 daily Medical Branch CLOPIDOGREL 2020-1 Yes [id number] Take 1 Univers 75 mg 0-13 tablet by ity of tablet 00:00: mouth once [place] daily Medical Branch ATORVASTATI 2019-1 Yes [id number] 80mg TAKE 1 Univers N 80 mg 0-13 TABLET BY ity of tablet 00:00: MOUTH AT [place] BEDTIME Medical Branch METOPROLOL 2019-1 Yes TAKE 1 Unive rs SUCCINATE 0-12 TABLET BY ity o f XL 25 mg 24 00:00: MOUTH [place] hr tablet 00 EVERY 12 Medica l HOURS Branch METOPROLOL 2020-1 Yes TAKE 1 Unive rs SUCCINATE 0-12 TABLET BY ity o f XL 25 mg 24 00:00: MOUTH [place] hr tablet 00 EVERY 12 Medica l HOURS Branch METOPROLOL 2020-0 Yes TAKE 1 Unive rs SUCCINATE 9-09 TABLET BY ity o f XL 25 mg 24 00:00: MOUTH [place] hr tablet 00 EVERY 12 Medica l HOURS Branch METOPROLOL 2020-0 Yes TAKE 1 Unive rs SUCCINATE 9-09 TABLET BY ity o f XL 25 mg 24 00:00: MOUTH [place] hr tablet 00 EVERY 12 Medica l HOURS Branch METOPROLOL 2020-0 2020- No TAKE 1 Univ ers SUCCINATE 9-09 10-12 TABLET BY ity of XL 25 mg 24 00:00: 00:00 MOUTH [place] tablet 00 :00 EVERY 12 Medica l HOURS Branch ATORVASTATI 2020-0 Yes [id number] 80mg TAKE 1 Univers N 80 mg 9-08 TABLET BY ity of tablet 00:00: MOUTH AT [place] 00 BEDTIME Medical Branch LISINOPRIL 2020-0 Yes [id number] Take 1 Univers 10 mg 9-08 tablet by ity of tablet 00:00: mouth once [place] 00 daily Medical Branch ISOSORBIDE 2020-0 Yes [id number] Take 1 Univers MONONITRATE 9-08 tablet by ity of 30 mg 24 hr 00:00: mouth once [place] tablet 00 daily Medical Branch EUTHYROX 50 2020-0 Yes [id number] TAKE 1 Univers mcg tablet 9-08 TABLET BY ity of 00:00: MOUTH ONCE [place] 00 DAILY IN [facility] [place] MORNING CLOPIDOGREL 2020-0 Yes [id number] Take 1 Univers 75 mg 9-08 tablet by ity of tablet 00:00: mouth once daily Medical Branch ATORVASTATI 2020-0 Yes [id number] 80mg TAKE 1 Univers N 80 mg 9-08 TABLET BY ity of tablet 00:00: MOUTH AT [place] BEDTIME [facility] Branch LISINOPRIL 2020-0 Yes [id number] Take 1 Univers 10 mg 9-08 tablet by ity of tablet 00:00: mouth once daily Medical Branch ISOSORBIDE 2020-0 Yes [id number] Take 1 Univers MONONITRATE 9-08 tablet by ity of 30 mg 24 hr 00:00: mouth once [place] tablet 00 daily Medical Branch EUTHYROX 50 2020-0 Yes [id number] TAKE 1 Univers mcg tablet 9-08 TABLET BY ity of 00:00: MOUTH ONCE DAILY IN [facility] THE [place] MORNING CLOPIDOGREL 2020-0 Yes [id number] Take 1 Univers 75 mg 9-08 tablet by ity of tablet 00:00: mouth once daily Medical Branch ATORVASTATI 2020-0 Yes [id number] 80mg TAKE 1 Univers N 80 mg 9-08 TABLET BY ity of tablet 00:00: MOUTH [address] Branch LISINOPRIL 2020-0 Yes [id number] Take 1 Univers 10 mg 9-08 tablet by ity of tablet 00:00: mouth once daily Medical Branch ISOSORBIDE 2020-0 Yes [id number] Take 1 Univers MONONITRATE 9-08 tablet by ity of 30 mg 24 hr 00:00: mouth once [place] tablet 00 daily Medical Branch EUTHYROX 50 2020-0 Yes [id number] TAKE 1 Univers mcg tablet 9-08 TABLET BY ity of 00:00: MOUTH ONCE [place] DAILY IN Medical THE Branch MORNING CLOPIDOGREL 2020-0 Yes [id number] Take 1 Univers 75 mg 9-08 tablet by ity of tablet 00:00: mouth once daily Medical Branch ATORVASTATI 2020-0 Yes [id number] 80mg TAKE 1 Univers N 80 mg 9-08 TABLET BY ity of tablet 00:00: MOUTH AT [place] BEDTIME Medical Branch LISINOPRIL 2020-0 Yes [id number] Take 1 Univers 10 mg 9-08 tablet by ity of tablet 00:00: mouth once daily Medical Branch ISOSORBIDE 2020-0 Yes [id number] Take 1 Univers MONONITRATE 9-08 tablet by ity of 30 mg 24 hr 00:00: mouth once [place] tablet 00 daily Medical Branch EUTHYROX 50 2020-0 Yes [id number] TAKE 1 Univers mcg tablet 9-08 TABLET BY ity of 00:00: MOUTH ONCE DAILY IN Medical THE Branch MORNING CLOPIDOGREL 2020-0 Yes [id number] Take 1 Univers 75 mg 9-08 tablet by ity of tablet 00:00: mouth once [place] daily Medical Branch ATORVASTATI 2020-0 Yes [id number] 80mg TAKE 1 Univers N 80 mg 9-08 TABLET BY ity of tablet 00:00: MOUTH AT [place] BEDTIME Medical Branch LISINOPRIL 2020-0 Yes [id number] Take 1 Univers 10 mg 9-08 tablet by ity of tablet 00:00: mouth once daily Medical Branch ISOSORBIDE 2020-0 Yes [id number] Take 1 Univers MONONITRATE 9-08 tablet by ity of 30 mg 24 hr 00:00: mouth once [place] tablet 00 daily Medical Branch EUTHYROX 50 2020-0 Yes [id number] TAKE 1 Univers mcg tablet 9-08 TABLET BY ity of 00:00: MOUTH ONCE DAILY IN Medical THE Branch MORNING CLOPIDOGREL 2020-0 Yes [id number] Take 1 Univers 75 mg 9-08 tablet by ity of tablet 00:00: mouth once [place] daily Medical Branch ATORVASTATI 2020-0 2020- No [id number] 80mg TAKE 1 Univers N 80 mg 9-08 10-13 TABLET BY ity of tablet 00:00: 00:00 MOUTH AT [place] 00 :00 BEDTIME Medical Branch LISINOPRIL 2020-0 2020- No [id number] Take 1 Univers 10 mg 9-08 10-13 tablet by ity of tablet 00:00: 00:00 mouth once [place] 00 :00 daily [facility] Branch ISOSORBIDE 2020-0 2020- No [id number] Take 1 Univers MONONITRATE 9-08 10-13 tablet by it y of 30 mg 24 hr 00:00: 00:00 mouth once [place] tablet 00 :00 daily Medical Branch EUTHYROX 50 2020-0 2020- No [id number] TAKE 1 Univers mcg tablet 02-14- TABLET BY ity of 00:00: 00:00 MOUTH ONCE [place] 00 :00 DAILY IN Medical THE Branch MORNING CLOPIDOGREL 2020-0 2020- No [id number] Take 1 Univers 75 mg -01 16- tablet by ity of tablet 00:00: 00:00 mouth once [place] 00 :00 daily [facility] METOPROLOL 2020-0 Yes TAKE 1 Unive rs SUCCINATE 8-03 TABLET BY ity o f XL 25 mg 24 00:00: MOUTH [place] hr tablet 00 EVERY 12 Medica l HOURS Branch METOPROLOL 2020-0 Yes TAKE 1 Unive rs SUCCINATE 8-03 TABLET BY ity o f XL 25 mg 24 00:00: MOUTH [place] hr tablet 00 EVERY 12 Medica l HOURS Branch LISINOPRIL 2020-0 Yes [id number] Take 1 Univers 10 mg 8-03 tablet by ity of tablet 00:00: mouth once daily Medical Branch ATORVASTATI 2020-0 Yes [id number] 80mg TAKE 1 Univers N 80 mg 8-03 TABLET BY ity of tablet 00:00: MOUTH AT [place] 00 BEDTIME Medical Branch EUTHYROX 50 2020-0 Yes [id number] TAKE 1 Univers mcg tablet 8-03 TABLET BY ity of 00:00: MOUTH ONCE [place] DAILY IN Medical THE Branch MORNING CLOPIDOGREL 2020-0 Yes [id number] Take 1 Univers 75 mg 8-03 tablet by ity of tablet 00:00: mouth once [place] daily Medical Branch METOPROLOL 2020-0 Yes TAKE 1 Unive rs SUCCINATE 8-03 TABLET BY ity o f XL 25 mg 24 00:00: MOUTH [place] hr tablet 00 EVERY 12 Medica l HOURS Branch METOPROLOL 2020-0 2020- No TAKE 1 Univ ers SUCCINATE 8-03 09-09 TABLET BY ity of XL 25 mg 24 00:00: 00:00 MOUTH [place] hr tablet 00 :00 EVERY 12 Medica l HOURS Branch METOPROLOL 2020-0 2020- No TAKE 1 Univ ers SUCCINATE 8-03 09-09 TABLET BY ity of XL 25 mg 24 00:00: 00:00 MOUTH [place] hr tablet 00 :00 EVERY 12 Medica l HOURS Branch LISINOPRIL 2020-0 2020- No [id number] Take 1 Univers 10 mg -08 15-08 tablet by ity of tablet 00:00: 00:00 mouth once [place] 00 :00 daily Medical Branch ATORVASTATI 2020-0 2020- No [id number] 80mg TAKE 1 Univers N 80 mg -08 15-08 TABLET BY ity of tablet 00:00: 00:00 MOUTH AT [place] 00 :00 BEDTIME Medical Branch EUTHYROX 50 2020-0 2020- No [id number] TAKE 1 Univers mcg tablet 01-09 TABLET BY ity of 00:00: 00:00 MOUTH ONCE [place] 00 :00 DAILY IN Medical THE Branch MORNING CLOPIDOGREL 2020-0 2020- No [id number] Take 1 Univers 75 mg 01-09-08 tablet by ity of tablet 00:00: 00:00 mouth once [place] 00 :00 daily Medical Branch LISINOPRIL 2020-0 2020- No [id number] Take 1 Univers 10 mg 01-09- tablet by ity of tablet 00:00: 00:00 mouth once [place] 00 :00 daily Medical Branch ATORVASTATI 2020-0 2020- No [id number] 80mg TAKE 1 Univers N 80 mg 01-09 TABLET BY ity of tablet 00:00: 00:00 MOUTH AT [place] 00 :00 BEDTIME Medical Branch EUTHYROX 50 2020-0 2020- No [id number] TAKE 1 Univers mcg tablet 01-09 TABLET BY ity of 00:00: 00:00 MOUTH ONCE [place] 00 :00 DAILY IN Medical THE Branch MORNING CLOPIDOGREL 2020-0 2020- No [id number] Take 1 Univers 75 mg -08 15-08 tablet by ity of tablet 00:00: 00:00 mouth once [place] 00 :00 daily Medical Branch ATORVASTATI 2020-0 Yes [id number] 80mg TAKE 1 Univers N 80 mg 7-08 TABLET BY ity of tablet 00:00: MOUTH AT [place] 00 BEDTIME Medical Branch LISINOPRIL 2020-0 Yes [id number] Take 1 Univers 10 mg 7-08 tablet by ity of tablet 00:00: mouth once [place] 00 daily Medical Branch CLOPIDOGREL 2020-0 Yes [id number] Take 1 Univers 75 mg 7-08 tablet by ity of tablet 00:00: mouth once [place] 00 daily Medical Branch LISINOPRIL 2020-0 Yes [id number] Take 1 Univers 10 mg 7-08 tablet by ity of tablet 00:00: mouth once [place] 00 daily Medical Branch LISINOPRIL 2020-0 Yes [id number] Take 1 Univers 10 mg 7-08 tablet by ity of tablet 00:00: mouth once [place] 00 daily Medical Branch CLOPIDOGREL 2020-0 Yes [id number] Take 1 Univers 75 mg 7-08 tablet by ity of tablet 00:00: mouth once [place] 00 daily Medical Branch ATORVASTATI 2020-0 Yes [id number] 80mg TAKE 1 Univers N 80 mg 7-08 TABLET BY ity of tablet 00:00: MOUTH AT [place] 00 BEDTIME Medical Branch LISINOPRIL 2020-0 Yes [id number] Take 1 Univers 10 mg 7-08 tablet by ity of tablet 00:00: mouth once [place] 00 daily Medical Branch CLOPIDOGREL 2020-0 Yes [id number] Take 1 Univers 75 mg 7-08 tablet by ity of tablet 00:00: mouth once [place] 00 daily Medical Branch ATORVASTATI 2020-0 2020- No [id number] 80mg TAKE 1 Univers N 80 mg 7-08 08-03 TABLET BY ity of tablet 00:00: 00:00 MOUTH AT [place] 00 :00 BEDTIME Medical Branch LISINOPRIL 2020-0 2020- No [id number] Take 1 Univers 10 mg 7-08 08-03 tablet by ity of tablet 00:00: 00:00 mouth once [place] 00 :00 daily [facility] Branch CLOPIDOGREL 2020-0 2020- No [id number] Take 1 Univers 75 mg 7-08 08-03 tablet by ity of tablet 00:00: 00:00 mouth once [place] 00 :00 daily [facility] Branch aspirin 81 2020-0 Yes [id number] 81mg Take 81 mg Univers mg EC 5-29 by mouth ity of tablet 18:16: daily. [place] 28 Medical Branch budesonide- 2020-0 Yes 2{puff} Inhale 2 Univers formoterol 5-29 Puffs 2 ity of (SYMBICORT) 18:16: (two) [place] 160-4.5 28 times Medical mcg/actuati daily. Branch on inhaler levalbutero 2020-0 Yes 1{puff} Inhale 1-2 Univers l 45 5-29 Puffs 3 ity of mcg/actuati 18:16: (three) [place] as on inhaler 28 times Medical daily as Branch needed for Wheezing. aspirin 81 2020-0 Yes [id number] 81mg Take 81 mg Univers mg EC 5-29 by mouth ity of tablet 18:16: daily. [address] budesonide- 2019-0 Yes 2{puff} Inhale 2 Univers formoterol 5-29 Puffs 2 ity of (SYMBICORT) 18:16: (two) [place] 160-4.5 28 times Medical mcg/actuati daily. Branch on inhaler levalbutero 2020-0 Yes 1{puff} Inhale 1-2 Univers l 45 5-29 Puffs 3 ity of mcg/actuati 18:16: (three) [place] as on inhaler 28 times Medical daily as Branch needed for Wheezing. aspirin 81 2020-0 Yes [id number] 81mg Take 81 mg Univers mg EC 5-29 by mouth ity of tablet 18:16: daily. [address] budesonide- 2019-0 Yes 2{puff} Inhale 2 Univers formoterol 5-29 Puffs 2 ity of (SYMBICORT) 18:16: (two) [place] 160-4.5 28 times Medical mcg/actuati daily. Branch on inhaler levalbutero 2019-0 Yes 1{puff} Inhale 1-2 Univers l 45 5-29 Puffs 3 ity of mcg/actuati 18:16: (three) [place] on inhaler 28 times Medical daily as Branch needed for Wheezing. aspirin 81 2019-0 Yes [id number] 81mg Take 81 mg Univers mg EC 5-29 by mouth ity of tablet 18:16: daily. [address] budesonide- 2019-0 Yes 2{puff} Inhale 2 Univers formoterol 5-29 Puffs 2 ity of (SYMBICORT) 18:16: (two) [place] 160-4.5 28 times Medical mcg/actuati daily. Branch on inhaler levalbutero 2020-0 Yes 1{puff} Inhale 1-2 Univers l 45 5-29 Puffs 3 ity of mcg/actuati 18:16: (three) [place] on inhaler 28 times Medical daily as Branch needed for Wheezing. aspirin 81 2019-0 Yes [id number] 81mg Take 81 mg Univers mg EC 5-29 by mouth ity of tablet 18:16: daily. [address] budesonide- Yes 2{puff} Inhale 2 Univers formoterol 5-29 Puffs 2 ity of (SYMBICORT) 18:16: (two) [place] 160-4.5 28 times Medical mcg/actuati daily. Branch on inhaler levalbutero 2019- Yes 1{puff} Inhale 1-2 Univers l 45 5-29 Puffs 3 ity of mcg/actuati 18:16: (three) [place] on inhaler 28 times Medical daily as Branch needed for Wheezing. aspirin 81 2020-0 Yes [id number] 81mg Take 81 mg Univers mg EC 5-29 by mouth ity of tablet 18:16: daily. [address] budesonide- Yes 2{puff} Inhale 2 Univers formoterol 5-29 Puffs 2 ity of (SYMBICORT) 18:16: (two) [place] 160-4.5 28 times Medical mcg/actuati daily. Branch on inhaler levalbutero Yes 1{puff} Inhale 1-2 Univers l 45 5-29 Puffs 3 ity of mcg/actuati 18:16: (three) [place] on inhaler 28 times Medical daily as Branch needed for Wheezing. aspirin 81 2020-0 Yes [id number] 81mg Take 81 mg Univers mg EC 5-29 by mouth ity of tablet 18:16: daily. [address] budesonide- Yes 2{puff} Inhale 2 Univers formoterol 5-29 Puffs 2 ity of (SYMBICORT) 18:16: (two) [place] 160-4.5 28 times Medical mcg/actuati daily. Branch on inhaler levalbutero 2019- Yes 1{puff} Inhale 1-2 Univers l 45 5-29 Puffs 3 ity of mcg/actuati 18:16: (three) [place] as on inhaler 28 times Medical daily as Branch needed for Wheezing. aspirin 81 2020-0 Yes [id number] 81mg Take 81 mg Univers mg EC 5-29 by mouth ity of tablet 18:16: daily. [address] budesonide- 2019- Yes 2{puff} Inhale 2 Univers formoterol 5-29 Puffs 2 ity of (SYMBICORT) 18:16: (two) [place] 160-4.5 28 times Medical mcg/actuati daily. Branch on inhaler levalbutero 2019-0 Yes 1{puff} Inhale 1-2 Univers l 45 5-29 Puffs 3 ity of mcg/actuati 18:16: (three) [place] on inhaler 28 times Medical daily as Branch needed for Wheezing. aspirin 81 2020-0 Yes [id number] 81mg Take 81 mg Univers mg EC 5-29 by mouth ity of tablet 18:16: daily. [place] [address] Medical Branch budesonide- 2019-0 Yes 2{puff} Inhale 2 Univers formoterol 5-29 Puffs 2 ity of (SYMBICORT) 18:16: (two) [place] 160-4.5 28 times Medical mcg/actuati daily. Branch on inhaler levalbutero 2019-0 Yes 1{puff} Inhale 1-2 Univers l 45 5-29 Puffs 3 ity of mcg/actuati 18:16: (three) [place] as on inhaler 28 times Medical daily as Branch needed for Wheezing. aspirin 81 2020-0 Yes [id number] 81mg Take 81 mg Univers mg EC 5-29 by mouth ity of tablet 18:16: daily. [place] [address] Medical Branch budesonide- 2019-0 Yes 2{puff} Inhale 2 Univers formoterol 5-29 Puffs 2 ity of (SYMBICORT) 18:16: (two) [place] 160-4.5 28 times Medical mcg/actuati daily. Branch on inhaler levalbutero 2019-0 Yes 1{puff} Inhale 1-2 Univers l 45 5-29 Puffs 3 ity of mcg/actuati 18:16: (three) [place] on inhaler 28 times Medical daily as Branch needed for Wheezing. aspirin 81 2020-0 Yes [id number] 81mg Take 81 mg Univers mg EC 5-29 by mouth ity of tablet 18:16: daily. [place] [address] Medical Branch budesonide- 2019-0 Yes 2{puff} Inhale 2 Univers formoterol 5-29 Puffs 2 ity of (SYMBICORT) 18:16: (two) [place] 160-4.5 28 times Medical mcg/actuati daily. Branch on inhaler levalbutero 2019-0 Yes 1{puff} Inhale 1-2 Univers l 45 5-29 Puffs 3 ity of mcg/actuati 18:16: (three) [place] as on inhaler 28 times Medical daily as Branch needed for Wheezing. aspirin 81 2020-0 Yes [id number] 81mg Take 81 mg Univers mg EC 5-29 by mouth ity of tablet 18:16: daily. [address] budesonide- Yes 2{puff} Inhale 2 Univers formoterol 5-29 Puffs 2 ity of (SYMBICORT) 18:16: (two) [place] 160-4.5 28 times Medical mcg/actuati daily. Branch on inhaler levalbutero Yes 1{puff} Inhale 1-2 Univers l 45 5-29 Puffs 3 ity of mcg/actuati 18:16: (three) [place] as on inhaler 28 times Medical daily as Branch needed for Wheezing. aspirin 81 2020-0 Yes [id number] 81mg Take 81 mg Univers mg EC 5-29 by mouth ity of tablet 18:16: daily. [address] budesonide- Yes 2{puff} Inhale 2 Univers formoterol 5-29 Puffs 2 ity of (SYMBICORT) 18:16: (two) [place] 160-4.5 28 times Medical mcg/actuati daily. Branch on inhaler levalbutero Yes 1{puff} Inhale 1-2 Univers l 45 5-29 Puffs 3 ity of mcg/actuati 18:16: (three) [place] as on inhaler 28 times Medical daily as Branch needed for Wheezing. aspirin 81 2019-0 Yes [id number] 81mg Take 81 mg Univers mg EC 5-29 by mouth ity of tablet 18:16: daily. [address] budesonide- Yes 2{puff} Inhale 2 Univers formoterol 5-29 Puffs 2 ity of (SYMBICORT) 18:16: (two) [place] 160-4.5 28 times Medical mcg/actuati daily. Branch on inhaler levalbutero Yes 1{puff} Inhale 1-2 Univers l 45 5-29 Puffs 3 ity of mcg/actuati 18:16: (three) [place] as on inhaler 28 times Medical daily as Branch needed for Wheezing. ISOSORBIDE 2019- Yes [id number] Take 1 Univers MONONITRATE 5-18 07 tablet by ity of 30 mg 24 hr 00:00: mouth once [place] tablet 00 daily Medical Branch ISOSORBIDE 2020-0 2020- No [id number] Take 1 Univers MONONITRATE 5-18 05-29 07 tablet by it y of 30 mg 24 hr 00:00: 00:00 mouth once [place] tablet 00 :00 daily Medical Branch ISOSORBIDE 2020-0 2020- No [id number] Take 1 Univers MONONITRATE 5-18 05-29 07 tablet by it y of 30 mg 24 hr 00:00: 00:00 mouth once [place] tablet 00 :00 daily Medical Branch isosorbide 2020-0 Yes [id number] TAKE 1 Univers mononitrate 5-14 TABLET BY ity of 30 mg 24 hr 00:00: MOUTH ONCE [place] tablet 00 DAILY Medical Branch isosorbide 2020-0 Yes [id number] TAKE 1 Univers mononitrate 5-14 TABLET BY ity of 30 mg 24 hr 00:00: MOUTH ONCE [place] tablet 00 DAILY Medical Branch METOPROLOL 2020-0 Yes TAKE 1 Unive rs SUCCINATE 5-14 TABLET BY ity o f XL 25 mg 24 00:00: MOUTH [place] hr tablet 00 EVERY 12 Medica l HOURS Branch METOPROLOL 2020-0 Yes TAKE 1 Unive rs SUCCINATE 5-14 TABLET BY ity o f XL 25 mg 24 00:00: MOUTH [place] hr tablet 00 EVERY 12 Medica l HOURS Branch isosorbide 2020-0 Yes [id number] TAKE 1 Univers mononitrate 5-14 07 TABLET BY ity of 30 mg 24 hr 00:00: MOUTH ONCE [place] tablet 00 DAILY Medical Branch METOPROLOL 2020-0 Yes TAKE 1 Unive rs SUCCINATE 5-14 TABLET BY ity o f XL 25 mg 24 00:00: MOUTH [place] hr tablet 00 EVERY 12 Medica l HOURS Branch isosorbide 2020-0 Yes [id number] TAKE 1 Univers mononitrate 5-14 07 TABLET BY ity of 30 mg 24 hr 00:00: MOUTH ONCE [place] tablet 00 DAILY Medical Branch METOPROLOL 2020-0 Yes TAKE 1 Unive rs SUCCINATE 5-14 TABLET BY ity o f XL 25 mg 24 00:00: MOUTH [place] hr tablet 00 EVERY 12 Medica l HOURS Branch isosorbide 2020-0 Yes [id number] TAKE 1 Univers mononitrate 5-14 07 TABLET BY ity of 30 mg 24 hr 00:00: MOUTH ONCE [place] tablet 00 DAILY Medical Branch METOPROLOL 2020-0 Yes TAKE 1 Unive rs SUCCINATE 5-14 TABLET BY ity o f XL 25 mg 24 00:00: MOUTH [place] hr tablet 00 EVERY 12 Medica l HOURS Branch isosorbide 2020-0 Yes [id number] TAKE 1 Univers mononitrate 5-14 07 TABLET BY ity of 30 mg 24 hr 00:00: MOUTH ONCE [place] tablet 00 DAILY Medical Branch METOPROLOL 2020-0 Yes TAKE 1 Unive rs SUCCINATE 5-14 TABLET BY ity o f XL 25 mg 24 00:00: MOUTH [place] hr tablet 00 EVERY 12 Medica l HOURS Branch isosorbide 2020-0 Yes [id number] TAKE 1 Univers mononitrate 5-14 07 TABLET BY ity of 30 mg 24 hr 00:00: MOUTH ONCE [place] tablet 00 DAILY Medical Branch METOPROLOL 2020-0 Yes TAKE 1 Unive rs SUCCINATE 5-14 TABLET BY ity o f XL 25 mg 24 00:00: MOUTH [place] hr tablet 00 EVERY 12 Medica l HOURS Branch isosorbide 2020-0 Yes [id number] TAKE 1 Univers mononitrate 5-14 07 TABLET BY ity of 30 mg 24 hr 00:00: MOUTH ONCE [place] tablet 00 DAILY Medical Branch METOPROLOL 2020-0 Yes TAKE 1 Unive rs SUCCINATE 5-14 TABLET BY ity o f XL 25 mg 24 00:00: MOUTH [place] hr tablet 00 EVERY 12 Medica l HOURS Branch isosorbide 2020-0 Yes [id number] TAKE 1 Univers mononitrate 5-14 07 TABLET BY ity of 30 mg 24 hr 00:00: MOUTH ONCE [place] tablet 00 DAILY Medical Branch METOPROLOL 2020-0 Yes TAKE 1 Unive rs SUCCINATE 5-14 TABLET BY ity o f XL 25 mg 24 00:00: MOUTH [place] hr tablet 00 EVERY 12 Medica l HOURS Branch isosorbide 2020-0 Yes [id number] TAKE 1 Univers mononitrate 5-14 TABLET BY ity of 30 mg 24 hr 00:00: MOUTH ONCE [place] tablet 00 DAILY Medical Branch METOPROLOL 2020-0 Yes TAKE 1 Unive rs SUCCINATE 5-14 TABLET BY ity o f XL 25 mg 24 00:00: MOUTH [place] hr tablet 00 EVERY 12 Medica l HOURS Branch isosorbide 2020-0 Yes [id number] TAKE 1 Univers mononitrate 5-14 TABLET BY ity of 30 mg 24 hr 00:00: MOUTH ONCE [place] tablet 00 DAILY Medical Branch METOPROLOL 2020-0 Yes TAKE 1 Unive rs SUCCINATE 5-14 TABLET BY ity o f XL 25 mg 24 00:00: MOUTH [place] hr tablet 00 EVERY 12 Medica l HOURS [place] isosorbide 2020-0 Yes [id number] TAKE 1 [facility] mononitrate 5-14 TABLET BY ity of 30 mg 24 hr 00:00: MOUTH ONCE [place] tablet 00 DAILY Medical Branch isosorbide 2020-0 2020- No [id number] TAKE 1 [facility] mononitrate 5-14 09-08 TABLET BY it y of 30 mg 24 hr 00:00: 00:00 MOUTH ONCE [place] tablet 00 :00 DAILY Medical Branch isosorbide 2020-0 2020- No [id number] TAKE 1 [facility] mononitrate 5-14 09-08 TABLET BY it y of 30 mg 24 hr 00:00: 00:00 MOUTH ONCE [place] tablet 00 :00 DAILY [facility] METOPROLOL 2020-0 2020- No TAKE 1 Univ ers SUCCINATE 5-14 08-03 TABLET BY ity of XL 25 mg 24 00:00: 00:[place]TH [place] tablet 00 :00 EVERY 12 Medica l HOURS [place] tiotropium 2020-0 Yes [id number] 18ug Inhale 1 [facility] 18 mcg 4-16 capsule ity of inhalation 00:00: daily. [place] [facility] tiotropium 2020-0 Yes [id number] 18ug Inhale 1 [facility] 18 mcg 4-16 capsule ity of inhalation 00:00: daily. [place] [facility] tiotropium 2020-0 Yes [id number] 18ug Inhale 1 [facility] 18 mcg 4-16 capsule ity of inhalation 00:00: daily. [place] [facility] tiotropium 2020-0 Yes [id number] 18ug Inhale 1 [facility] 18 mcg 4-16 capsule ity of inhalation 00:00: daily. [place] [facility] tiotropium 2020-0 Yes [id number] 18ug Inhale 1 [facility] 18 mcg 4-16 capsule ity of inhalation 00:00: daily. [place] [facility] tiotropium 2020-0 Yes [id number] 18ug Inhale 1 [facility] 18 mcg 4-16 capsule ity of inhalation 00:00: daily. [place] [facility] tiotropium 2020-0 Yes [id number] 18ug Inhale 1 [facility] 18 mcg 4-16 capsule ity of inhalation 00:00: daily. [place] [facility] tiotropium 2020-0 Yes [id number] 18ug Inhale 1 [facility] 18 mcg 4-16 capsule ity of inhalation 00:00: daily. [place] [facility] tiotropium 2020-0 Yes [id number] 18ug Inhale 1 [facility] 18 mcg 4-16 capsule ity of inhalation 00:00: daily. [place] [facility] tiotropium 2020-0 Yes [id number] 18ug Inhale 1 [facility] 18 mcg 4-16 capsule ity of inhalation 00:00: daily. [address] tiotropium 2020-0 Yes [id number] 18ug Inhale 1 [facility] 18 mcg 4-16 capsule ity of inhalation 00:00: daily. [address] tiotropium 2020-0 Yes [id number] 18ug Inhale 1 [facility] 18 mcg 4-16 capsule ity of inhalation 00:00: daily. [address] tiotropium 2020-0 Yes [id number] 18ug Inhale 1 [facility] 18 mcg 4-16 capsule ity of inhalation 00:00: daily. [address] tiotropium 2020-0 Yes [id number] 18ug Inhale 1 [facility] 18 mcg 4-16 capsule ity of inhalation 00:00: daily. [address] tiotropium 2020-0 Yes [id number] 18ug Inhale 1 [facility] 18 mcg 4-16 capsule ity of inhalation 00:00: daily. [address] tiotropium 2020-0 Yes [id number] 18ug Inhale 1 [facility] 18 mcg 4-16 capsule ity of inhalation 00:00: daily. [address] tiotropium 2020-0 Yes [id number] 18ug Inhale 1 [facility] 18 mcg 4-16 capsule ity of inhalation 00:00: daily. [address] tiotropium 2020-0 Yes [id number] 18ug Inhale 1 [facility] 18 mcg 4-16 capsule ity of inhalation 00:00: daily. [address] tiotropium 2020-0 Yes [id number] 18ug Inhale 1 [facility] 18 mcg 4-16 capsule ity of inhalation 00:00: daily. [address] tiotropium 2020-0 Yes [id number] 18ug Inhale 1 [facility] 18 mcg 4-16 capsule ity of inhalation 00:00: daily. [place] 00 Medical Branch tiotropium 2019-0 Yes [id number] 18ug Inhale 1 [facility] 18 mcg 4-16 capsule ity of inhalation 00:00: daily. [place] [id number] Medical Branch ezetimibe 2019-2019- No [id number] 10mg Take 1 Univers (ZETIA) 10 08-23 07 tablet by ity of mg tablet 00:00: 04:59 mouth [place] 00 :00 daily for Medical 30 days. [place] ezetimibe 2019-2019- No [id number] 10mg Take 1 Univers (ZETIA) 10 08-23 07 tablet by ity of mg tablet 00:00: 04:59 mouth [place] 00 :00 daily for Medical 30 days. [place] ezetimibe 2019-2019- No [id number] 10mg Take 1 Univers (ZETIA) 10 08-23 07 tablet by ity of mg tablet 00:00: 04:59 mouth [place] 00 :00 daily for Medical 30 days. [place] ezetimibe 2019-2019- No [id number] 10mg Take 1 Univers (ZETIA) 10 08-23 07 tablet by ity of mg tablet 00:00: 04:59 mouth [place] 00 :00 daily for Medical 30 days. [place] ezetimibe 2019-2019- No [id number] 10mg Take 1 Univers (ZETIA) 10 08-23 07 tablet by ity of mg tablet 00:00: 04:59 mouth [place] 00 :00 daily for Medical 30 days. [place] ezetimibe 2019- No [id number] 10mg Take 1 Univers (ZETIA) 10 08-23 07 tablet by ity of mg tablet 00:00: 04:59 mouth [place] 00 :00 daily for Medical 30 days. [place] ketorolac 2019- No 30mg 30 mg, Unive rs (TORADOL) 08-07 Slow IV ity of injection 22:30: 21:52 Push, [place] 30 mg 00 :00 ONCE, 1 Medical dose, [place] 08/08/19 at 1630, KIANNA
Fa culty member approving Restricted medication : Sarah NARANJO ipratropium 2019- No 3mL 3 mL, Univ ers -albuterol 08-07 Inhalation it y of (DUONEB) 21:45: 20:49 , ONCE, 1 [place] 0.5 mg-3 00 :00 dose, [place] [facility] mg(2.5 mg 08/08/19 at [facility] h base)/3 mL 1545, nebulizer Routine solution 3 mL methylPREDN 2020-0 Yes [id number] [facility] (MEDROL, 00:00: SEE-INSTRU [place] as DEREK,) 4 mg 00 CTIONS. Medica l tablets follow Branch package directions methylPREDN 2020-0 Yes [id number] Take by [facility] 08-07 mouth ity of (MEDROL, 00:00: SEE-INSTRU [place] as DEREK,) 4 mg 00 CTIONS. Medica l tablets follow Branch package directions methylPREDN 2020-0 Yes [id number] Take by [facility] 08-07 mouth ity of (MEDROL, 00:00: SEE-INSTRU [place] DEREK,) 4 mg 00 CTIONS. Medica l tablets follow Branch package directions methylPREDN 2020-0 Yes [id number] [facility] mouth ity of (MEDROL, 00:00: SEE-INSTRU [place] as DEREK,) 4 mg 00 CTIONS. Medica l tablets follow Branch package directions methylPREDN 2020-0 Yes [id number] [facility] mouth ity of (MEDROL, 00:00: SEE-INSTRU [place] DEREK,) 4 mg 00 CTIONS. Medica l tablets follow Branch package directions methylPREDN 2020-0 Yes [id number] [facility]07 mouth ity of (MEDROL, 00:00: SEE-INSTRU [place] DEREK,) 4 mg 00 CTIONS. Medica l tablets follow Branch package directions methylPREDN 2020-0 Yes [id number] [facility] mouth ity of (MEDROL, 00:00: SEE-INSTRU [place] DEREK,) 4 mg 00 CTIONS. Medica l tablets follow Branch package directions methylPREDN 2020-0 Yes [id number] Take by [facility] 08-07 mouth ity of (MEDROL, 00:00: SEE-INSTRU [place] DEREK,) 4 mg 00 CTIONS. Medica l tablets follow Branch package directions methylPREDN 2020-0 Yes [id number] [facility] mouth ity of (MEDROL, 00:00: SEE-INSTRU [place] DEREK,) 4 mg 00 CTIONS. Medica l tablets follow Branch package directions methylPREDN 2020-0 Yes [id number] [facility] mouth ity of (MEDROL, 00:00: SEE-INSTRU [place] DEREK,) 4 mg 00 CTIONS. Medica l tablets follow Branch package directions methylPREDN 2020-0 Yes [id number] [facility] mouth [facility]y of (MEDROL, 00:00: SEE-INSTRU [place] DEREK,) 4 mg 00 CTIONS. Medica l tablets follow Branch package directions methylPREDN 2020-0 Yes [id number] [facility]y of (MEDROL, 00:00: SEE-INSTRU [place] DEREK,) 4 mg 00 CTIONS. Medica l tablets follow Branch package directions methylPREDN 2020-0 Yes [id number] Take by [facility] 3 mouth ity of (MEDROL, 00:00: SEE-INSTRU [place] DEREK,) 4 mg 00 CTIONS. Medica l tablets follow Branch package directions methylPREDN 2020-0 Yes [id number] Take by [facility] 3 mouth ity of (MEDROL, 00:00: SEE-INSTRU [place] DEREK,) 4 mg 00 CTIONS. Medica l tablets follow Branch package directions methylPREDN 2020-0 Yes [id number] Take by [facility] 3 mouth ity of (MEDROL, 00:00: SEE-INSTRU [place] DEREK,) 4 mg 00 CTIONS. Medica l tablets follow Branch package directions methylPREDN 2020-0 Yes [id number] Take by [facility] 3 mouth ity of (MEDROL, 00:00: SEE-INSTRU [place] DEREK,) 4 mg 00 CTIONS. Medica l tablets follow Branch package directions methylPREDN 2020-0 Yes [id number] [facility] mouth ity of (MEDROL, 00:00: SEE-INSTRU [place] DEREK,) 4 mg 00 CTIONS. Medica l tablets follow Branch package directions methylPREDN 2020-0 Yes [id number] [facility] mouth ity of (MEDROL, 00:00: SEE-INSTRU [place] DEREK,) 4 mg 00 CTIONS. Medica l tablets follow Branch package directions methylPREDN 2020-0 Yes [id number] Take by [facility] 3-01 mouth ity of (MEDROL, 00:00: SEE-INSTRU [place] DEREK,) 4 mg 00 CTIONS. Medica l tablets follow Branch package directions methylPREDN 2020-0 Yes [id number] [facility] mouth ity of (MEDROL, 00:00: SEE-INSTRU [place] DEREK,) 4 mg 00 CTIONS. Medica l tablets follow Branch package directions methylPREDN 2020-0 Yes [id number] Take by [facility] 3 mouth ity of (MEDROL, 00:00: SEE-INSTRU [place] DEREK,) 4 mg 00 CTIONS. Medica l tablets follow Branch package directions methylPREDN 2020-0 Yes [id number] [facility]y of (MEDROL, 00:00: SEE-INSTRU [place] DEREK,) 4 mg 00 CTIONS. Medica l tablets follow Branch package directions methylPREDN 2020-0 Yes [id number] [facility] mouth ity of (MEDROL, 00:00: SEE-INSTRU [place] DEREK,) 4 mg 00 CTIONS. Medica l tablets follow Branch package directions methylPREDN 2020-0 Yes [id number] [facility]y of (MEDROL, 00:00: SEE-INSTRU [place] DEREK,) 4 mg 00 CTIONS. Medica l tablets follow Branch package directions methylPREDN 2020-0 Yes [id number] Take by [facility] 3- mouth ity of (MEDROL, 00:00: SEE-INSTRU [place] DEREK,) 4 mg 00 CTIONS. Medica l tablets follow Branch package directions methylPREDN 2020-0 Yes [id number] Take by [facility] 3-01 mouth ity of (MEDROL, 00:00: SEE-INSTRU [place] DEREK,) 4 mg 00 CTIONS. Medica l tablets follow Branch package directions methylPREDN 2020-0 Yes [id number] Take by [facility] 3-01 mouth ity of (MEDROL, 00:00: SEE-INSTRU [place] DEREK,) 4 mg 00 CTIONS. Medica l tablets follow Branch package directions methylPREDN 2020-0 Yes [id number] Take by [facility] 3-01 mouth ity of (MEDROL, 00:00: SEE-INSTRU [place] as DEREK,) 4 mg 00 CTIONS. Medica l tablets follow Branch package directions methylPREDN 2020-0 Yes [id number] Take by [facility] 3-01 mouth ity of (MEDROL, 00:00: SEE-INSTRU [place] DEREK,) 4 mg 00 CTIONS. Medica l tablets follow Branch package directions methylPREDN 2020-0 Yes [id number] Take by [facility] 3- mouth ity of (MEDROL, 00:00: SEE-INSTRU [place] DEREK,) 4 mg 00 CTIONS. Medica l tablets follow Branch package directions methylPREDN 2020-0 Yes [id number] Take by [facility] 3- mouth ity of (MEDROL, 00:00: SEE-INSTRU [place] as DEREK,) 4 mg 00 CTIONS. Medica l tablets follow Branch package directions methylPREDN 2020-0 Yes [id number] Take by [facility] 3- mouth ity of (MEDROL, 00:00: SEE-INSTRU [place] as DEREK,) 4 mg 00 CTIONS. Medica l tablets follow Branch package directions methylPREDN 2020-0 Yes [id number] Take by [facility] 3- mouth ity of (MEDROL, 00:00: SEE-INSTRU [place] DEREK,) 4 mg 00 CTIONS. Medica l tablets follow Branch package directions methylPREDN 2020-0 Yes [id number] Take by [facility] 3-01 mouth ity of (MEDROL, 00:00: SEE-INSTRU [place] DEREK,) 4 mg 00 CTIONS. Medica l tablets follow Branch package directions NaCl 0.9% 2020-0 Yes 1000mL at 75 Unive rs (NS) IV 2-26 mL/hr, IV ity of infusion 16:30: Infusion, [place] 1,000 [place] 00 CONTINUOUS Medic al , Starting Branch Fri08/04/19 at 1030, Until Discontinu ed, Routine FENTanyl PF 2020-0 2020- No Slow IV Un ginny (SUBLIMAZE 08-04 Push, ity of (PF)) 15:50: 15:50 TITRATE - [place] injection 14 :14 FOR Medical PROCEDURE Branch USE, 1 dose, Starting Fri08/04/19 at 0950, Until Fri08/04/19 at 0950, Routine lidocaine 2020-0 2020- No Infiltrati U nivers 1% (PF) 08-04 on, ity of (XYLOCAINE) 15:49: 15:49 TITRATE - [place] injection 28 :28 FOR Medical PROCEDURE Branch USE, 1 dose, Starting Fri08/04/19 at 0949, Until Fri08/04/19 at 0949, Routine nitroglycer 2019-0 2020- No Intravenou Univers in (TRIDIL) 08-04 s, TITRATE i ty of 2 mg in 10 15:34: 15:34 - FOR [place] mL D5W for 25 :25 PROCEDURE Medi jeremiah Cardiac USE, 1 Branch Cath dose, Starting Fri08/04/19 at 0934, Until Fri08/04/19 at 0934, Routine midazolam 2020-0 2020- No IV Push, Uni vers (VERSED) 08-04 TITRATE - ity o f injection 15:33: 15:33 FOR [place] 49 :49 PROCEDURE Medical USE, 1 Branch dose, Starting Fri08/04/19 at 0933, Until Fri08/04/19 at 0933, Routine nitroglycer 2019-0 2020- No Intravenou Univers in (TRIDIL) 08-04 s, TITRATE i ty of 2 mg in 10 15:26: 15:26 - FOR [place] mL D5W for 26 :26 PROCEDURE Medi jeremiah Cardiac USE, 1 Branch Cath dose, Starting 08/04/19 at 0926, Until Fri08/04/19 at 0926, Routine FENTanyl PF 2020-0 2020- No Slow IV Un ginny (SUBLIMAZE 08-04 Push, ity of (PF)) 15:22: 15:22 TITRATE - [place] injection 18 :18 FOR Medical PROCEDURE Branch USE, 1 dose, Starting Fri08/04/19 at 0922, Until Fri08/04/19 at 0922, Routine FENTanyl PF 2020-0 2020- No Slow IV Un ginny (SUBLIMAZE 08-04 Push, ity of (PF)) 15:11: 15:11 TITRATE - [place] injection 11 :11 FOR Medical PROCEDURE Branch USE, 1 dose, Starting 08/04/19 at 0911, Until Fri08/04/19 at 0911, Routine midazolam 2020-0 2020- No IV Push, Uni vers (VERSED) 08-04 TITRATE - ity o f injection 15:11: 15:11 FOR [place] 05 :05 PROCEDURE Medical USE, 1 Branch dose, Starting 08/04/19 at 0911, Until Fri08/04/19 at 0911, Routine NaCl 0.9% 2019- No IV Univers (NS) bolus 08-04 Infusion, ity of infusion 15:07: 15:07 CONTINUOUS [place] 03 :03 PRN, Medical Starting Branch 08/04/19 at 0907, Until Fri08/04/19 at 0907, STAT nitroglycer 2019- No Intravenou Univers in (TRIDIL) 08-04 s, TITRATE i ty of 2 mg in 10 15:05: 15:05 - FOR [place] mL D5W for 55 :55 PROCEDURE Medi jeremiah Cardiac USE, 1 Branch Cath dose, Starting 08/04/19 at 0905, Until Fri08/04/19 at 0905, Routine heparin 2019- No Slow IV Univer s 1,000 08-04 Push, ity of unit/mL 15:05: 15:05 TITRATE - [place] injection 42 :42 FOR Medical PROCEDURE Branch USE, 1 dose, Starting 08/04/19 at 0905, Until Fri08/04/19 at 0905, Routine lidocaine 2019- No Infiltrati U nivers 1% (PF) 08-04 on, ity of (XYLOCAINE) 15:01: 15:01 TITRATE - [place] injection 23 :23 FOR Medical PROCEDURE Branch USE, 1 dose, Starting Fri08/04/19 at 0901, Until Fri08/04/19 at 0901, Routine FENTanyl PF 2019- No Slow IV Un ginny (SUBLIMAZE 08-04 Push, ity of (PF)) 14:55: 14:55 TITRATE - [place] injection 09 :09 FOR Medical PROCEDURE Branch USE, 1 dose, Starting 08/04/19 at 0855, Until 08/04/19 at 0855, Routine midazolam 2019-0 2020- No IV Push, Uni vers (VERSED) 08-04 TITRATE - ity o f injection 14:55: 14:55 FOR [place] 00 :00 PROCEDURE Medical USE, 1 Branch dose, Starting 08/04/19 at 0855, Until Fri08/04/19 at 0855, Routine clopidogreL 2019-0 2020- No Oral, PRN, Univers (PLAVIX) 08-04 Starting ity of tablet 13:46: 13:46 Fri [place] 16 :16 08/04/19 at [facility] 0746, Branch Until Fri08/04/19 at 0746, Routine aspirin 2019-0 2020- No Oral, PRN, Uni vers chewable 08-04 Starting ity of tablet 13:45: 13:45 Fri [place] 22 :22 08/04/19 at [facility] 0745, Branch Until Fri08/04/19 at 0745, Routine budesonide- 2019-0 Yes 2{puff} Inhale 2 Univers formoterol 2-13 Puffs 2 ity of (SYMBICORT) 14:44: (two) [place] 160-4.5 21 times Medical mcg/actuati daily. Branch on inhaler budesonide- 2020-0 Yes 2{puff} Inhale 2 [facility] formoterol 2-13 Puffs 2 ity of (SYMBICORT) 14:44: (two) [place] 160-4.5 21 times Medical mcg/actuati daily. Branch on inhaler budesonide- 2020-0 Yes 2{puff} Inhale 2 [facility] formoterol 2-13 Puffs 2 ity of (SYMBICORT) 14:44: (two) [place] 160-4.5 21 times Medical mcg/actuati daily. Branch on inhaler budesonide- 2020-0 Yes 2{puff} Inhale 2 [facility] formoterol 2-13 Puffs 2 ity of (SYMBICORT) 14:44: (two) [place] 160-4.5 21 times Medical mcg/actuati daily. Branch on inhaler budesonide- 2020-0 Yes 2{puff} Inhale 2 [facility] formoterol 2-13 Puffs 2 ity of (SYMBICORT) 14:44: (two) [place] 160-4.5 21 times Medical mcg/actuati daily. Branch on inhaler budesonide- 2020-0 Yes 2{puff} Inhale 2 [facility] formoterol 2-13 Puffs 2 ity of (SYMBICORT) 14:44: (two) [place] 160-4.5 21 times Medical mcg/actuati daily. Branch on inhaler budesonide- 2020-0 Yes 2{puff} Inhale 2 [facility] formoterol 2-13 Puffs 2 ity of (SYMBICORT) 14:44: (two) [place] 160-4.5 21 times Medical mcg/actuati daily. Branch on inhaler budesonide- 2020-0 Yes 2{puff} Inhale 2 [facility] formoterol 2-13 Puffs 2 ity of (SYMBICORT) 14:44: (two) [place] 160-4.5 21 times Medical mcg/actuati daily. Branch on inhaler budesonide- 2020-0 Yes 2{puff} Inhale 2 [facility] formoterol 2-13 Puffs 2 ity of (SYMBICORT) 14:44: (two) [place] 160-4.5 21 times Medical mcg/actuati daily. Branch on inhaler budesonide- 2020-0 Yes 2{puff} Inhale 2 [facility] formoterol 2-13 Puffs 2 ity of (SYMBICORT) 14:44: (two) [place] 160-4.5 21 times Medical mcg/actuati daily. Branch on inhaler budesonide- 2020-0 Yes 2{puff} Inhale 2 [facility] formoterol 2-13 Puffs 2 ity of (SYMBICORT) 14:44: (two) [place] 160-4.5 21 times Medical mcg/actuati daily. Branch on inhaler budesonide- 2020-0 Yes 2{puff} Inhale 2 [facility] formoterol 2-13 Puffs 2 ity of (SYMBICORT) 14:44: (two) [place] 160-4.5 21 times Medical mcg/actuati daily. Branch on inhaler budesonide- 2020-0 Yes 2{puff} Inhale 2 [facility] formoterol 2-13 Puffs 2 ity of (SYMBICORT) 14:44: (two) [place] 160-4.5 21 times Medical mcg/actuati daily. Branch on inhaler budesonide- 2020-0 Yes 2{puff} Inhale 2 [facility] formoterol 2-13 Puffs 2 ity of (SYMBICORT) 14:44: (two) [place] 160-4.5 21 times Medical mcg/actuati daily. Branch on inhaler budesonide- 2020-0 Yes 2{puff} Inhale 2 [facility] formoterol 2-13 Puffs 2 ity of (SYMBICORT) 14:44: (two) [place] 160-4.5 21 times Medical mcg/actuati daily. Branch on inhaler budesonide- 2020-0 Yes 2{puff} Inhale 2 [facility] formoterol 2-13 Puffs 2 ity of (SYMBICORT) 14:44: (two) [place] 160-4.5 21 times Medical mcg/actuati daily. Branch on inhaler budesonide- 2020-0 Yes 2{puff} Inhale 2 [facility] formoterol 2-13 Puffs 2 ity of (SYMBICORT) 14:44: (two) [place] 160-4.5 21 times Medical mcg/actuati daily. Branch on inhaler budesonide- 2020-0 Yes 2{puff} Inhale 2 [facility] formoterol 2-13 Puffs 2 ity of (SYMBICORT) 14:44: (two) [place] 160-4.5 21 times Medical mcg/actuati daily. Branch on inhaler budesonide- 2020-0 Yes 2{puff} Inhale 2 [facility] formoterol 2-13 Puffs 2 ity of (SYMBICORT) 14:44: (two) [place] 160-4.5 21 times Medical mcg/actuati daily. Branch on inhaler budesonide- 2020-0 Yes 2{puff} Inhale 2 [facility] formoterol 2-13 Puffs 2 ity of (SYMBICORT) 14:44: (two) [place] 160-4.5 21 times Medical mcg/actuati daily. Branch on inhaler budesonide- 2020-0 Yes 2{puff} Inhale 2 Univers formoterol 2-13 Puffs 2 ity of (SYMBICORT) 14:44: (two) [place] 160-4.5 21 times Medical mcg/actuati daily. Branch on inhaler budesonide- 2020-0 Yes 2{puff} Inhale 2 [facility] formoterol 2-13 Puffs 2 ity of (SYMBICORT) 14:44: (two) [place] 160-4.5 21 times Medical mcg/actuati daily. Branch on inhaler budesonide- 2020-0 Yes 2{puff} Inhale 2 Univers formoterol 2-13 Puffs 2 ity of (SYMBICORT) 14:44: (two) [place] 160-4.5 21 times Medical mcg/actuati daily. Branch on inhaler budesonide- 2020-0 Yes 2{puff} Inhale 2 Univers formoterol 2-13 Puffs 2 ity of (SYMBICORT) 14:44: (two) [place] 160-4.5 21 times Medical mcg/actuati daily. Branch on inhaler budesonide- 2020-0 Yes 2{puff} Inhale 2 [facility] formoterol 2-13 Puffs 2 ity of (SYMBICORT) 14:44: (two) [place] 160-4.5 21 times Medical mcg/actuati daily. Branch on inhaler budesonide- 2020-0 Yes 2{puff} Inhale 2 Univers formoterol 2-13 Puffs 2 ity of (SYMBICORT) 14:44: (two) [place] 160-4.5 21 times Medical mcg/actuati daily. Branch on inhaler budesonide- 2020-0 Yes 2{puff} Inhale 2 Univers formoterol 2-13 Puffs 2 ity of (SYMBICORT) 14:44: (two) [place] 160-4.5 21 times Medical mcg/actuati daily. Branch on inhaler budesonide- 2020-0 Yes 2{puff} Inhale 2 Univers formoterol 2-13 Puffs 2 ity of (SYMBICORT) 14:44: (two) [place] 160-4.5 21 times Medical mcg/actuati daily. Branch on inhaler budesonide- 2020-0 Yes 2{puff} Inhale 2 [facility] formoterol 2-13 Puffs 2 ity of (SYMBICORT) 14:44: (two) [place] 160-4.5 21 times Medical mcg/actuati daily. Branch on inhaler budesonide- 2020-0 Yes 2{puff} Inhale 2 [facility] formoterol 2-13 Puffs 2 ity of (SYMBICORT) 14:44: (two) [place] 160-4.5 21 times Medical mcg/actuati daily. Branch on inhaler budesonide- 2020-0 Yes 2{puff} Inhale 2 [facility] formoterol 2-13 Puffs 2 ity of (SYMBICORT) 14:44: (two) [place] 160-4.5 21 times Medical mcg/actuati daily. Branch on inhaler butalbital- 2020-0 Yes [id number] 1{tbl} Take 1 Univers acetaminoph 2-13 9108 tablet by ity of en-caff 00:00: mouth [place] 50-325-40 00 every 4 Medical mg tablet (four) Branch hours as needed for Pain (scale 4-6). butalbital- 2020-0 Yes [id number] 1{tbl} Take 1 Univers acetaminoph 2-13 9108 tablet by ity of en-caff 00:00: mouth [place] 50-325-40 00 every 4 Medical mg tablet (four) Branch hours as needed for Pain (scale 4-6). butalbital- 2020-0 Yes [id number] 1{tbl} Take 1 [facility] acetaminoph 2-13 9108 tablet by ity of en-caff 00:00: mouth [place] 50-325-40 00 every 4 Medical mg tablet (four) Branch hours as needed for Pain (scale 4-6). butalbital- 2020-0 Yes [id number] 1{tbl} Take 1 [facility] acetaminoph 2-13 9108 tablet by ity of en-caff 00:00: mouth [place] 50-325-40 00 every 4 Medical mg tablet (four) Branch hours as needed for Pain (scale 4-6). butalbital- 2020-0 Yes [id number] 1{tbl} Take 1 [facility] acetaminoph 2-13 9108 tablet by ity of en-caff 00:00: mouth [place] 50-325-40 00 every 4 Medical mg tablet (four) Branch hours as needed for Pain (scale 4-6). butalbital- 2020-0 Yes [id number] 1{tbl} Take 1 [facility] acetaminoph 2-13 9108 tablet by ity of en-caff 00:00: mouth [place] 50-325-40 00 every 4 Medical mg tablet (four) Branch hours as needed for Pain (scale 4-6). butalbital- 2020-0 Yes [id number] 1{tbl} Take 1 [facility] acetaminoph 2-13 9108 tablet by ity of en-caff 00:00: mouth [place] 50-325-40 00 every 4 Medical mg tablet (four) Branch hours as needed for Pain (scale 4-6). butalbital- 2020-0 Yes [id number] 1{tbl} Take 1 [facility] acetaminoph 2-13 9108 tablet by ity of en-caff 00:00: mouth [place] 50-325-40 00 every 4 Medical mg tablet (four) Branch hours as needed for Pain (scale 4-6). butalbital- 2020-0 Yes [id number] 1{tbl} Take 1 [facility] acetaminoph 2-13 9108 tablet by ity of en-caff 00:00: mouth [place] 50-325-40 00 every 4 Medical mg tablet (four) Branch hours as needed for Pain (scale 4-6). metoprolol 2020-0 Yes 25mg Take 1 Unive rs succinate 2-13 tablet by ity o f XL 25 mg 24 00:00: mouth [place] hr tablet 00 every 12 Medica l (twelve) Branch hours. metoprolol 2020-0 Yes 25mg Take 1 Unive rs succinate 2-13 tablet by ity o f XL 25 mg 24 00:00: mouth [place] hr tablet 00 every 12 Medica l (twelve) Branch hours. butalbital- 2020-0 Yes [id number] 1{tbl} Take 1 [facility] acetaminoph 2-13 9108 tablet by ity of en-caff 00:00: mouth [place] 50-325-40 00 every 4 Medical mg tablet (four) Branch hours as needed for Pain (scale 4-6). metoprolol 2020-0 Yes 25mg Take 1 Unive rs succinate 2-13 tablet by ity o f XL 25 mg 24 00:00: mouth [place] hr tablet 00 every 12 Medica l (twelve) Branch hours. butalbital- 2020-0 Yes [id number] 1{tbl} Take 1 [facility] acetaminoph 2-13 9108 tablet by ity of en-caff 00:00: mouth [place] 50-325-40 00 every 4 Medical mg tablet (four) Branch hours as needed for Pain (scale 4-6). metoprolol 2020-0 Yes 25mg Take 1 [facility] rs succinate 2-13 tablet by [facility] o f XL 25 mg 24 00:00: mouth [place] hr tablet 00 every 12 Medica l (twelve) Branch hours. butalbital- 2020-0 Yes [id number] 1{tbl} Take 1 [facility] acetaminoph 2-13 9108 tablet by [facility] of en-caff 00:00: mouth [place] 50-325-40 00 every 4 Medical mg tablet (four) Branch hours as needed for Pain (scale 4-6). metoprolol 2020-0 Yes 25mg Take 1 [facility] rs succinate 2-13 tablet by [facility] o f XL 25 mg 24 00:00: mouth [place] hr tablet 00 every 12 Medica l (twelve) Branch hours. butalbital- 2020-0 Yes [id number] 1{tbl} Take 1 [facility] acetaminoph 2-13 9108 tablet by [facility] of en-caff 00:00: mouth [place] 50-325-40 00 every 4 Medical mg tablet (four) Branch hours as needed for Pain (scale 4-6). metoprolol 2020-0 Yes 25mg Take 1 [facility] rs succinate 2-13 tablet by [facility] o f XL 25 mg 24 00:00: mouth [place] hr tablet 00 every 12 Medica l (twelve) Branch hours. butalbital- 2020-0 Yes [id number] 1{tbl} Take 1 [facility] acetaminoph 2-13 9108 tablet by [facility] of en-caff 00:00: mouth [place] 50-325-40 00 every 4 Medical mg tablet (four) Branch hours as needed for Pain (scale 4-6). metoprolol 2020-0 Yes 25mg Take 1 [facility] rs succinate 2-13 tablet by [facility] o f XL 25 mg 24 00:00: mouth [place] hr tablet 00 every 12 Medica l (twelve) Branch hours. butalbital- 2020-0 Yes [id number] 1{tbl} Take 1 [facility] acetaminoph 2-13 9108 tablet by [facility] of en-caff 00:00: mouth [place] 50-325-40 00 every 4 Medical mg tablet (four) Branch hours as needed for Pain (scale 4-6). metoprolol 2020-0 Yes 25mg Take 1 [facility] rs succinate 2-13 tablet by [facility] o f XL 25 mg 24 00:00: mouth [place] hr tablet 00 every 12 Medica l (twelve) Branch hours. butalbital- 2020-0 Yes [id number] 1{tbl} Take 1 [facility] acetaminoph 2-13 9108 tablet by [facility] of en-caff 00:00: mouth [place] 50-325-40 00 every 4 Medical mg tablet (four) Branch hours as needed for Pain (scale 4-6). metoprolol 2020-0 Yes 25mg Take 1 [facility] rs succinate 2-13 tablet by [facility] o f XL 25 mg 24 00:00: mouth [place] hr tablet 00 every 12 Medica l (twelve) Branch hours. butalbital- 2020-0 Yes [id number] 1{tbl} Take 1 [facility] acetaminoph 2-13 9108 tablet by [facility] of en-caff 00:00: mouth [place] 50-325-40 00 every 4 Medical mg tablet (four) Branch hours as needed for Pain (scale 4-6). metoprolol 2020-0 Yes 25mg Take 1 [facility] rs succinate 2-13 tablet by [facility] o f XL 25 mg 24 00:00: mouth [place] hr tablet 00 every 12 Medica l (twelve) Branch hours. butalbital- 2020-0 Yes [id number] 1{tbl} Take 1 [facility] acetaminoph 2-13 9108 tablet by [facility] of en-caff 00:00: mouth [place] 50-325-40 00 every 4 Medical mg tablet (four) Branch hours as needed for Pain (scale 4-6). metoprolol 2020-0 Yes 25mg Take 1 [facility] rs succinate 2-13 tablet by [facility] o f XL 25 mg 24 00:00: mouth [place] hr tablet 00 every 12 Medica l (twelve) Branch hours. butalbital- 2020-0 Yes [id number] 1{tbl} Take 1 [facility] acetaminoph 2-13 9108 tablet by [facility] of en-caff 00:00: mouth [place] 50-325-40 00 every 4 Medical mg tablet (four) Branch hours as needed for Pain (scale 4-6). metoprolol 2020-0 Yes 25mg Take 1 [facility] rs succinate 2-13 tablet by [facility] o f XL 25 mg 24 00:00: mouth [place] hr tablet 00 every 12 Medica l (twelve) Branch hours. butalbital- 2020-0 Yes [id number] 1{tbl} Take 1 [facility] acetaminoph 2-13 9108 tablet by [facility] of en-caff 00:00: mouth [place] 50-325-40 00 every 4 Medical mg tablet (four) Branch hours as needed for Pain (scale 4-6). metoprolol 2020-0 Yes 25mg Take 1 [facility] rs succinate 2-13 tablet by [facility] o f XL 25 mg 24 00:00: mouth [place] hr tablet 00 every 12 Medica l (twelve) Branch hours. butalbital- 2020-0 Yes [id number] 1{tbl} Take 1 [facility] acetaminoph 2-13 9108 tablet by [facility] of en-caff 00:00: mouth [place] 50-325-40 00 every 4 Medical mg tablet (four) Branch hours as needed for Pain (scale 4-6). metoprolol 2020-0 Yes 25mg Take 1 [facility] rs succinate 2-13 tablet by [facility] o f XL 25 mg 24 00:00: mouth [place] hr tablet 00 every 12 Medica l (twelve) Branch hours. butalbital- 2020-0 Yes [id number] 1{tbl} Take 1 [facility] acetaminoph 2-13 9108 tablet by [facility] of en-caff 00:00: mouth [place] 50-325-40 00 every 4 Medical mg tablet (four) Branch hours as needed for Pain (scale 4-6). metoprolol 2020-0 Yes 25mg Take 1 [facility] rs succinate 2-13 tablet by [facility] o f XL 25 mg 24 00:00: mouth [place] hr tablet 00 every 12 Medica l (twelve) Branch hours. butalbital- 2020-0 Yes [id number] 1{tbl} Take 1 [facility] acetaminoph 2-13 9108 tablet by [facility] of en-caff 00:00: mouth [place] 50-325-40 00 every 4 Medical mg tablet (four) Branch hours as needed for Pain (scale 4-6). metoprolol 2020-0 Yes 25mg Take 1 [facility] rs succinate 2-13 tablet by [facility] o f XL 25 mg 24 00:00: mouth [place] hr tablet 00 every 12 Medica l (twelve) Branch hours. butalbital- 2020-0 Yes [id number] 1{tbl} Take 1 [facility] acetaminoph 2-13 9108 tablet by [facility] of en-caff 00:00: mouth [place] 50-325-40 00 every 4 Medical mg tablet (four) Branch hours as needed for Pain (scale 4-6). metoprolol 2020-0 Yes 25mg Take 1 [facility] rs succinate 2-13 tablet by [facility] o f XL 25 mg 24 00:00: mouth [place] hr tablet 00 every 12 Medica l (twelve) Branch hours. butalbital- 2020-0 Yes [id number] 1{tbl} Take 1 [facility] acetaminoph 2-13 9108 tablet by [facility] of en-caff 00:00: mouth [place] 50-325-40 00 every 4 Medical mg tablet (four) Branch hours as needed for Pain (scale 4-6). metoprolol 2020-0 Yes 25mg Take 1 [facility] rs succinate 2-13 tablet by [facility] o f XL 25 mg 24 00:00: mouth [place] hr tablet 00 every 12 Medica l (twelve) Branch hours. butalbital- 2020-0 Yes [id number] 1{tbl} Take 1 [facility] acetaminoph 2-13 9108 tablet by [facility] of en-caff 00:00: mouth [place] 50-325-40 00 every 4 Medical mg tablet (four) Branch hours as needed for Pain (scale 4-6). metoprolol 2020-0 Yes 25mg Take 1 [facility] rs succinate 2-13 tablet by [facility] o f XL 25 mg 24 00:00: mouth [place] hr tablet 00 every 12 Medica l (twelve) Branch hours. butalbital- 2020-0 Yes [id number] 1{tbl} Take 1 [facility] acetaminoph 2-13 9108 tablet by [facility] of en-caff 00:00: mouth [place] 50-325-40 00 every 4 Medical mg tablet (four) Branch hours as needed for Pain (scale 4-6). metoprolol 2020-0 Yes 25mg Take 1 [facility] rs succinate 2-13 tablet by [facility] o f XL 25 mg 24 00:00: mouth [place] hr tablet 00 every 12 Medica l (twelve) Branch hours. butalbital- 2020-0 Yes [id number] 1{tbl} Take 1 [facility] acetaminoph 2-13 9108 tablet by [facility] of en-caff 00:00: mouth [place] 50-325-40 00 every 4 Medical mg tablet (four) Branch hours as needed for Pain (scale 4-6). metoprolol 2020-0 Yes 25mg Take 1 [facility] rs succinate 2-13 tablet by [facility] o f XL 25 mg 24 00:00: mouth [place] hr tablet 00 every 12 Medica l (twelve) Branch hours. butalbital- 2020-0 Yes [id number] 1{tbl} Take 1 [facility] acetaminoph 2-13 9108 tablet by [facility] of en-caff 00:00: mouth [place] 50-325-40 00 every 4 Medical mg tablet (four) Branch hours as needed for Pain (scale 4-6). butalbital- 2020-0 Yes [id number] 1{tbl} Take 1 [facility] acetaminoph 2-13 9108 tablet by [facility] of en-caff 00:00: mouth [place] 50-325-40 00 every 4 Medical mg tablet (four) Branch hours as needed for Pain (scale 4-6). butalbital- 2020-0 Yes [id number] 1{tbl} Take 1 [facility] acetaminoph 2-13 9108 tablet by [facility] en-caff 00:00: mouth [place] 50-325-40 00 every 4 Medical mg tablet (four) Branch hours as needed for Pain (scale 4-6). butalbital- 2020-0 Yes [id number] 1{tbl} Take 1 [facility] acetaminoph 2-13 9108 tablet by [facility] en-caff 00:00: mouth [place] 50-325-40 00 every 4 Medical mg tablet (four) Branch hours as needed for Pain (scale 4-6). butalbital- 2020-0 Yes [id number] 1{tbl} Take 1 [facility] acetaminoph 2-13 9108 tablet by [facility] of en-caff 00:00: mouth [place] 50-325-40 00 every 4 Medical mg tablet (four) Branch hours as needed for Pain (scale 4-6). butalbital- 2020-0 Yes [id number] 1{tbl} Take 1 [facility] acetaminoph 2-13 9108 tablet by [facility] en-caff 00:00: mouth [place] 50-325-40 00 every 4 Medical mg tablet (four) Branch hours as needed for Pain (scale 4-6). butalbital- 2020-0 Yes [id number] 1{tbl} Take 1 [facility] acetaminoph 2-13 9108 tablet by [facility] of en-caff 00:00: mouth [place] 50-325-40 00 every 4 Medical mg tablet (four) Branch hours as needed for Pain (scale 4-6). butalbital- 2020-0 Yes [id number] 1{tbl} Take 1 [facility] acetaminoph 2-13 9108 tablet by [facility] of en-caff 00:00: mouth [place] 50-325-40 00 every 4 Medical mg tablet (four) Branch hours as needed for Pain (scale 4-6). butalbital- 2019-0 Yes [id number] 1{tbl} Take 1 [facility] acetaminoph 2-13 9108 tablet by [facility] of en-caff 00:00: mouth [place] 50-325-40 00 every 4 Medical mg tablet (four) Branch hours as needed for Pain (scale 4-6). butalbital- 2019-0 Yes [id number] 1{tbl} Take 1 [facility] acetaminoph 2-13 9108 tablet by [facility] of en-caff 00:00: mouth [place] 50-325-40 00 every 4 Medical mg tablet (four) Branch hours as needed for Pain (scale 4-6). butalbital- 2019-0 Yes [id number] 1{tbl} Take 1 [facility] acetaminoph 2-13 9108 tablet by [facility] of en-caff 00:00: mouth [place] 50-325-40 00 every 4 Medical mg tablet (four) Branch hours as needed for Pain (scale 4-6). butalbital- 2019- Yes [id number] 1{tbl} Take 1 [facility] acetaminoph 2-13 9108 tablet by [facility] of en-caff 00:00: mouth [place] 50-325-40 00 every 4 Medical mg tablet (four) Branch hours as needed for Pain (scale 4-6). butalbital- 2019- Yes [id number] 1{tbl} Take 1 [facility] acetaminoph 2-13 9108 tablet by [facility] of en-caff 00:00: mouth [place] 50-325-40 00 every 4 Medical mg tablet (four) Branch hours as needed for Pain (scale 4-6). metoprolol 2019- 2020- No 25mg Take 1 [facility] ers succinate 2-13 05-14 tablet by [facility] of XL 25 mg 24 00:00: 00:00 [facility] [place] hr tablet 00 :00 every 12 Medica l (twelve) Branch hours. ibuprofen 2020-0 Yes [id number] 600mg Take 1 [facility] 600 mg 2-11 tablet by [facility] of tablet 00:00: mouth [place] 00 every 8 Medical (eight) Branch hours as needed for Pain (scale 4-6). ibuprofen 2020-0 Yes [id number] 600mg Take 1 [facility] 600 mg 2-11 tablet by [facility] of tablet 00:00: mouth [place] 00 every 8 Medical (eight) Branch hours as needed for Pain (scale 4-6). ibuprofen 2020-0 Yes [id number] 600mg Take 1 [facility] 600 mg 2-11 tablet by [facility] of tablet 00:00: mouth [place] 00 every 8 Medical (eight) Branch hours as needed for Pain (scale 4-6). ibuprofen 2020-0 Yes [id number] 600mg Take 1 [facility] 600 mg 2-11 tablet by [facility] of tablet 00:00: mouth [place] 00 every 8 Medical (eight) Branch hours as needed for Pain (scale 4-6). ibuprofen 2020-0 Yes [id number] 600mg Take 1 [facility] 600 mg 2-11 tablet by [facility] of tablet 00:00: mouth [place] 00 every 8 Medical (eight) Branch hours as needed for Pain (scale 4-6). ibuprofen 2020-0 Yes [id number] 600mg Take 1 [facility] 600 mg 2-11 tablet by [facility] of tablet 00:00: mouth [place] 00 every 8 Medical (eight) Branch hours as needed for Pain (scale 4-6). ibuprofen 2020-0 Yes [id number] 600mg Take 1 [facility] 600 mg 2-11 tablet by [facility] of tablet 00:00: mouth [place] 00 every 8 Medical (eight) Branch hours as needed for Pain (scale 4-6). ibuprofen 2020-0 Yes [id number] 600mg Take 1 [facility] 600 mg 2-11 tablet by [facility] of tablet 00:00: mouth [place] 00 every 8 Medical (eight) Branch hours as needed for Pain (scale 4-6). ibuprofen 2020-0 Yes [id number] 600mg Take 1 [facility] 600 mg 2-11 tablet by [facility] of tablet 00:00: mouth [place] 00 every 8 Medical (eight) Branch hours as needed for Pain (scale 4-6). ibuprofen 2020-0 Yes [id number] 600mg Take 1 [facility] 600 mg 2-11 tablet by [facility] of tablet 00:00: mouth [place] 00 every 8 Medical (eight) Branch hours as needed for Pain (scale 4-6). ibuprofen 2020-0 Yes [id number] 600mg Take 1 [facility] 600 mg 2-11 tablet by [facility] of tablet 00:00: mouth [place] 00 every 8 Medical (eight) Branch hours as needed for Pain (scale 4-6). ibuprofen 2020-0 Yes [id number] 600mg Take 1 [facility] 600 mg 2-11 tablet by [facility] of tablet 00:00: mouth [place] 00 every 8 Medical (eight) Branch hours as needed for Pain (scale 4-6). ibuprofen 2020-0 Yes [id number] 600mg Take 1 [facility] 600 mg 2-11 tablet by [facility] of tablet 00:00: mouth [place] 00 every 8 Medical (eight) Branch hours as needed for Pain (scale 4-6). ibuprofen 2020-0 Yes [id number] 600mg Take 1 [facility] 600 mg 2-11 tablet by [facility] of tablet 00:00: mouth [place] 00 every 8 Medical (eight) Branch hours as needed for Pain (scale 4-6). ibuprofen 2020-0 Yes [id number] 600mg Take 1 [facility] 600 mg 2-11 tablet by [facility] of tablet 00:00: mouth [place] 00 every 8 Medical (eight) Branch hours as needed for Pain (scale 4-6). ibuprofen 2020-0 Yes [id number] 600mg Take 1 [facility] 600 mg 2-11 tablet by [facility] of tablet 00:00: mouth [place] 00 every 8 Medical (eight) Branch hours as needed for Pain (scale 4-6). ibuprofen 2020-0 Yes [id number] 600mg Take 1 [facility] 600 mg 2-11 tablet by [facility] of tablet 00:00: mouth [place] 00 every 8 Medical (eight) Branch hours as needed for Pain (scale 4-6). ibuprofen 2020-0 Yes [id number] 600mg Take 1 [facility] 600 mg 2-11 tablet by [facility] of tablet 00:00: mouth [place] 00 every 8 Medical (eight) Branch hours as needed for Pain (scale 4-6). ibuprofen 2020-0 Yes [id number] 600mg Take 1 [facility] 600 mg 2-11 tablet by [facility] of tablet 00:00: mouth [place] 00 every 8 Medical (eight) Branch hours as needed for Pain (scale 4-6). ibuprofen 2020-0 Yes [id number] 600mg Take 1 [facility] 600 mg 2-11 tablet by [facility] of tablet 00:00: mouth [place] 00 every 8 Medical (eight) Branch hours as needed for Pain (scale 4-6). ibuprofen 2020-0 Yes [id number] 600mg Take 1 [facility] 600 mg 2-11 tablet by [facility] of tablet 00:00: mouth [place] 00 every 8 Medical (eight) Branch hours as needed for Pain (scale 4-6). ibuprofen 2020-0 Yes [id number] 600mg Take 1 [facility] 600 mg 2-11 tablet by [facility] of tablet 00:00: mouth [place] 00 every 8 Medical (eight) Branch hours as needed for Pain (scale 4-6). ibuprofen 2020-0 Yes [id number] 600mg Take 1 [facility] 600 mg 2-11 tablet by [facility] of tablet 00:00: mouth [place] 00 every 8 Medical (eight) Branch hours as needed for Pain (scale 4-6). ibuprofen 2020-0 Yes [id number] 600mg Take 1 [facility] 600 mg 2-11 tablet by [facility] of tablet 00:00: mouth [place] 00 every 8 Medical (eight) Branch hours as needed for Pain (scale 4-6). ibuprofen 2020-0 Yes [id number] 600mg Take 1 [facility] 600 mg 2-11 tablet by [facility] of tablet 00:00: mouth [place] 00 every 8 Medical (eight) Branch hours as needed for Pain (scale 4-6). ibuprofen 2020-0 Yes [id number] 600mg Take 1 [facility] 600 mg 2-11 tablet by [facility] of tablet 00:00: mouth [place] 00 every 8 Medical (eight) Branch hours as needed for Pain (scale 4-6). ibuprofen 2020-0 Yes [id number] 600mg Take 1 [facility] 600 mg 2-11 tablet by [facility] of tablet 00:00: mouth [place] 00 every 8 Medical (eight) Branch hours as needed for Pain (scale 4-6). ibuprofen 2020-0 Yes [id number] 600mg Take 1 [facility] 600 mg 2-11 tablet by [facility] of tablet 00:00: mouth [place] 00 every 8 Medical (eight) Branch hours as needed for Pain (scale 4-6). ibuprofen 2020-0 Yes [id number] 600mg Take 1 [facility] 600 mg 2-11 tablet by [facility] of tablet 00:00: mouth [place] 00 every 8 Medical (eight) Branch hours as needed for Pain (scale 4-6). ibuprofen 2020-0 Yes [id number] 600mg Take 1 [facility] 600 mg 2-11 tablet by [facility] of tablet 00:00: mouth [place] 00 every 8 Medical (eight) Branch hours as needed for Pain (scale 4-6). ibuprofen 2020-0 Yes [id number] 600mg Take 1 [facility] 600 mg 2-11 tablet by [facility] of tablet 00:00: mouth [place] 00 every 8 Medical (eight) Branch hours as needed for Pain (scale 4-6). ibuprofen 2020-0 Yes [id number] 600mg Take 1 [facility] 600 mg 2-11 tablet by [facility] of tablet 00:00: mouth [place] 00 every 8 Medical (eight) Branch hours as needed for Pain (scale 4-6). ibuprofen 2020-0 Yes [id number] 600mg Take 1 [facility] 600 mg 2-11 tablet by [facility] of tablet 00:00: mouth [place] 00 every 8 Medical (eight) Branch hours as needed for Pain (scale 4-6). ibuprofen 2020-0 Yes [id number] 600mg Take 1 [facility] 600 mg 2-11 tablet by [facility] of tablet 00:00: mouth [place] 00 every 8 Medical (eight) Branch hours as needed for Pain (scale 4-6). ibuprofen 2020-0 Yes [id number] 600mg Take 1 [facility] 600 mg 2-11 tablet by [facility] of tablet 00:00: mouth [place] 00 every 8 Medical (eight) Branch hours as needed for Pain (scale 4-6). ibuprofen 2020-0 2020- No [id number] 600mg Take 1 [facility] 600 mg 2-11 08-03 tablet by [facility] of tablet 00:00: 00:00 mouth [place] 00 :00 every 8 Medical (eight) Branch hours as needed for Pain (scale 4-6). levothyroxi 2020-0 Yes [id number] 50ug Take 1 [facility] ne 50 mcg 2-07 tablet by [facility] o f tablet 00:00: mouth [place] 00 every Medical morning. Branch levothyroxi 2020-0 Yes [id number] 50ug Take 1 [facility] ne 50 mcg 2-07 tablet by [facility]y o f tablet 00:00: mouth [place] 00 every Medical morning. Branch levothyroxi 2020-0 Yes [id number] 50ug Take 1 [facility] ne 50 mcg 2-07 tablet by [facility]y o f tablet 00:00: mouth [place] 00 every Medical morning. Branch levothyroxi 2020-0 Yes [id number] 50ug Take 1 [facility] ne 50 mcg 2-07 tablet by [facility] o f tablet 00:00: mouth [place] 00 every Medical morning. Branch levothyroxi 2020-0 Yes [id number] 50ug Take 1 [facility] ne 50 mcg 2-07 tablet by [facility] o f tablet 00:00: mouth [place] 00 every Medical morning. Branch levothyroxi 2020-0 Yes [id number] 50ug Take 1 [facility] ne 50 mcg 2-07 tablet by [facility]y o f tablet 00:00: mouth [place] 00 every Medical morning. Branch levothyroxi 2020-0 Yes [id number] 50ug Take 1 [facility] ne 50 mcg 2-07 tablet by [facility]y o f tablet 00:00: mouth [place] 00 every Medical morning. Branch levothyroxi 2020-0 Yes [id number] 50ug Take 1 [facility] ne 50 mcg 2-07 tablet by [facility] o f tablet 00:00: mouth [place] 00 every Medical morning. Branch levothyroxi 2020-0 Yes [id number] 50ug Take 1 [facility] ne 50 mcg 2-07 tablet by [facility]y o f tablet 00:00: mouth [place] 00 every Medical morning. Branch levothyroxi 2020-0 Yes [id number] 50ug Take 1 [facility] ne 50 mcg 2-07 tablet by [facility]y o f tablet 00:00: mouth [place] 00 every Medical morning. Branch levothyroxi 2020-0 Yes [id number] 50ug Take 1 [facility] ne 50 mcg 2-07 tablet by [facility] o f tablet 00:00: mouth [place] 00 every Medical morning. Branch levothyroxi 2020-0 Yes [id number] 50ug Take 1 [facility] ne 50 mcg 2-07 tablet by [facility]y o f tablet 00:00: mouth [place] 00 every Medical morning. Branch levothyroxi 2020-0 Yes [id number] 50ug Take 1 [facility] ne 50 mcg 2-07 tablet by [facility] o f tablet 00:00: mouth [place] 00 every Medical morning. Branch levothyroxi 2020-0 Yes [id number] 50ug Take 1 [facility] ne 50 mcg 2-07 tablet by ity o f tablet 00:00: mouth [place] 00 every Medical morning. [place] levothyroxi 2020-0 Yes [id number] 50ug Take 1 [facility] ne 50 mcg 2-07 tablet by ity o f tablet 00:00: mouth [place] 00 every Medical morning. [place] levothyroxi 2020-0 Yes [id number] 50ug Take 1 [facility] ne 50 mcg 2-07 tablet by [facility]y o f tablet 00:00: mouth [place] 00 every Medical morning. Branch levothyroxi 2020-0 Yes [id number] 50ug Take 1 [facility] ne 50 mcg 2-07 tablet by [facility] o f tablet 00:00: mouth [place] 00 every Medical morning. Branch levothyroxi 2020-0 Yes [id number] 50ug Take 1 [facility] ne 50 mcg 2-07 tablet by [facility] o f tablet 00:00: mouth [place] 00 every Medical morning. Branch levothyroxi 2020-0 Yes [id number] 50ug Take 1 [facility] ne 50 mcg 2-07 tablet by [facility] o f tablet 00:00: mouth [place] 00 every Medical morning. Branch levothyroxi 2020-0 Yes [id number] 50ug Take 1 [facility] ne 50 mcg 2-07 tablet by [facility] o f tablet 00:00: mouth [place] 00 every Medical morning. Branch levothyroxi 2020-0 Yes [id number] 50ug Take 1 [facility] ne 50 mcg 2-07 tablet by [facility] o f tablet 00:00: mouth [place] 00 every Medical morning. Branch levothyroxi 2020-0 Yes [id number] 50ug Take 1 [facility] ne 50 mcg 2-07 tablet by [facility] o f tablet 00:00: mouth [place] 00 every Medical morning. Branch levothyroxi 2020-0 Yes [id number] 50ug Take 1 [facility] ne 50 mcg 2-07 tablet by ity o f tablet 00:00: mouth [place] 00 every Medical morning. Branch levothyroxi 2020-0 Yes [id number] 50ug Take 1 [facility] ne 50 mcg 2-07 tablet by [facility]y o f tablet 00:00: mouth [place] 00 every Medical morning. Branch levothyroxi 2020-0 Yes [id number] 50ug Take 1 [facility] ne 50 mcg 2-07 tablet by [facility] o f tablet 00:00: mouth [place] 00 every Medical morning. Branch levothyroxi 2020-0 Yes [id number] 50ug Take 1 [facility] ne 50 mcg 2-07 tablet by [facility]y o f tablet 00:00: mouth [place] 00 every Medical morning. Branch levothyroxi 2020-0 Yes [id number] 50ug Take 1 [facility] ne 50 mcg 2-07 tablet by ity o f tablet 00:00: mouth [place] 00 every Medical morning. Branch levothyroxi 2020-0 Yes [id number] 50ug Take 1 [facility] ne 50 mcg 2-07 tablet by [facility]y o f tablet 00:00: mouth [place] 00 every Medical morning. Branch levothyroxi 2020-0 Yes [id number] 50ug Take 1 [facility] ne 50 mcg 2-07 tablet by [facility] o f tablet 00:00: mouth [place] 00 every Medical morning. Branch levothyroxi 2020-0 Yes [id number] 50ug Take 1 [facility] ne 50 mcg 2-07 tablet by [facility] o f tablet 00:00: mouth [place] 00 every Medical morning. Branch levothyroxi 2020-0 Yes [id number] 50ug Take 1 [facility] ne 50 mcg 2-07 tablet by [facility] o f tablet 00:00: mouth [place] 00 every Medical morning. Branch levothyroxi 2020-0 Yes [id number] 50ug Take 1 [facility] ne 50 mcg 2-07 tablet by [facility] o f tablet 00:00: mouth [place] 00 every Medical morning. Branch levothyroxi 2020-0 Yes [id number] 50ug Take 1 [facility] ne 50 mcg 2-07 tablet by [facility] o f tablet 00:00: mouth [place] 00 every Medical morning. Branch levothyroxi 2020-0 Yes [id number] 50ug Take 1 [facility] ne 50 mcg 2-07 tablet by ity o f tablet 00:00: mouth [place] 00 every Medical morning. Branch levothyroxi 2020-0 Yes [id number] 50ug Take 1 [facility] ne 50 mcg 2-07 tablet by [facility]y o f tablet 00:00: mouth [place] 00 every Medical morning. Branch levothyroxi 2020-0 Yes [id number] 50ug Take 1 [facility] ne 50 mcg 2-07 tablet by [facility] o f tablet 00:00: mouth [place] 00 every Medical morning. Branch levothyroxi 2020-0 Yes [id number] 50ug Take 1 [facility] ne 50 mcg 2-07 tablet by [facility] o f tablet 00:00: mouth [place] 00 every Medical morning. Branch levothyroxi 2020-0 Yes [id number] 50ug Take 1 [facility] ne 50 mcg 2-07 tablet by it[facility] o f tablet 00:00: mouth [place] 00 every Medical morning. Branch levothyroxi 2020-0 2020- No [id number] 50ug Take 1 [facility] ne 50 mcg 2-07 08-03 tablet by [facility] of tablet 00:00: 00:00 mouth [place] 00 :00 every Medical morning. Branch levothyroxi 2020-0 Yes [id number] 75ug Take 1 [facility] ne 75 mcg 2-04 tablet by ity o f tablet 00:00: mouth [place] 00 every Medical morning. Branch levothyroxi 2020-0 Yes [id number] 75ug Take 1 [facility] ne 75 mcg 2-04 tablet by ity o f tablet 00:00: mouth [place] 00 every Medical morning. Branch levothyroxi 2020-0 Yes [id number] 75ug Take 1 [facility] ne 75 mcg 2-04 tablet by ity o f tablet 00:00: mouth [place] 00 every Medical morning. Branch levothyroxi 2020-0 Yes [id number] 75ug Take 1 [facility] ne 75 mcg 2-04 tablet by [facility]y o f tablet 00:00: mouth [place] 00 every Medical morning. Branch levothyroxi 2020-0 Yes [id number] 75ug Take 1 [facility] ne 75 mcg 2-04 tablet by ity o f tablet 00:00: mouth [place] 00 every Medical morning. Branch levothyroxi 2020-0 Yes [id number] 75ug Take 1 [facility] ne 75 mcg 2-04 tablet by ity o f tablet 00:00: mouth [place] 00 every Medical morning. Branch levothyroxi 2020-0 Yes [id number] 75ug Take 1 [facility] ne 75 mcg 2-04 tablet by ity o f tablet 00:00: mouth [place] 00 every Medical morning. Branch levothyroxi 2020-0 Yes [id number] 75ug Take 1 [facility] ne 75 mcg 2-04 tablet by [facility] o f tablet 00:00: mouth [place] 00 every Medical morning. Branch levothyroxi 2020-0 Yes [id number] 75ug Take 1 [facility] ne 75 mcg 2-04 tablet by ity o f tablet 00:00: mouth [place] 00 every Medical morning. Branch levothyroxi 2020-0 Yes [id number] 75ug Take 1 [facility] ne 75 mcg 2-04 tablet by ity o f tablet 00:00: mouth [place] 00 every Medical morning. Branch levothyroxi 2020-0 Yes [id number] 75ug Take 1 [facility] ne 75 mcg 2-04 tablet by ity o f tablet 00:00: mouth [place] 00 every Medical morning. Branch levothyroxi 2020-0 Yes [id number] 75ug Take 1 [facility] ne 75 mcg 2-04 tablet by [facility]y o f tablet 00:00: mouth [place] 00 every Medical morning. Branch levothyroxi 2019-0 Yes [id number] 75ug Take 1 [facility] ne 75 mcg 2-04 tablet by ity o f tablet 00:00: mouth [place] 00 every Medical morning. Branch levothyroxi 2019-0 2020- No [id number] 75ug Take 1 [facility] ne 75 mcg 2-04 02-20 tablet by [facility] of tablet 00:00: 00:00 mouth [place] 00 :00 every Medical morning. Branch levothyroxi 2019- 2020- No [id number] 75ug Take 1 [facility] ne 75 mcg 2-04 02-20 tablet by [facility] of tablet 00:00: 00:00 mouth [place] 00 :00 every Medical morning. Branch ibuprofen 2019- 2020- No [id number] 600mg Take 600 [facility] 600 mg 1-31 01-31 mg by ity of tablet 16:23: 00:00 mouth [place] 45 :00 every 6 Medical (six) Branch hours as needed. ibuprofen 2019-2019- No [id number] 600mg Take 600 [facility] 600 mg 1-31 01-31 mg by ity of tablet 16:23: 00:00 mouth [place] 45 :00 every 6 Medical (six) Branch hours as needed. aspirin 81 2019-0 Yes [id number] 81mg Take 81 mg [facility] mg EC 1-31 by mouth ity of tablet 16:23: daily. [address] levalbutero 0 Yes 1{puff} Inhale 1-2 [facility] l 45 1-31 Puffs 3 ity of mcg/actuati 16:23: (three) [place] as on inhaler 37 times Medical daily as Branch needed for Wheezing. aspirin 81 2019-0 Yes [id number] 81mg Take 81 mg [facility] mg EC 1-31 by mouth ity of tablet 16:23: daily. [address] levalbutero 2019-0 Yes 1{puff} Inhale 1-2 [facility] l 45 1-31 Puffs 3 ity of mcg/actuati 16:23: (three) [place] as on inhaler 37 times Medical daily as Branch needed for Wheezing. aspirin 81 2019-0 Yes [id number] 81mg Take 81 mg [facility] mg EC 1-31 by mouth ity of tablet 16:23: daily. [address] levalbutero 2020-0 Yes 1{puff} Inhale 1-2 [facility] l 45 1-31 Puffs 3 ity of mcg/actuati 16:23: (three) [place] as on inhaler 37 times Medical daily as Branch needed for Wheezing. aspirin 81 2020-0 Yes [id number] 81mg Take 81 mg [facility] mg EC 1-31 by mouth ity of tablet 16:23: daily. [address] levalbutero 2019-0 Yes 1{puff} Inhale 1-2 [facility] l 45 1-31 Puffs 3 ity of mcg/actuati 16:23: (three) [place] as on inhaler 37 times Medical daily as Branch needed for Wheezing. aspirin 81 2019-0 Yes [id number] 81mg Take 81 mg [facility] mg EC 1-31 by mouth ity of tablet 16:23: daily. [address] levalbutero 2019-0 Yes 1{puff} Inhale 1-2 [facility] l 45 1-31 Puffs 3 ity of mcg/actuati 16:23: (three) [place] as on inhaler 37 times Medical daily as Branch needed for Wheezing. aspirin 81 2019-0 Yes [id number] 81mg Take 81 mg [facility] mg EC 1-31 by mouth ity of tablet 16:23: daily. [address] levalbutero 2019-0 Yes 1{puff} Inhale 1-2 [facility] l 45 1-31 Puffs 3 ity of mcg/actuati 16:23: (three) [place] as on inhaler 37 times Medical daily as Branch needed for Wheezing. aspirin 81 2019-0 Yes [id number] 81mg Take 81 mg [facility] mg EC 1-31 by mouth ity of tablet 16:23: daily. [address] levalbut[place] 2019-0 Yes 1{puff} Inhale 1-2 [facility] l 45 1-31 Puffs 3 ity of mcg/actuati 16:23: (three) [place] as on inhaler 37 times Medical daily as Branch needed for Wheezing. aspirin 81 2020-0 Yes [id number] 81mg Take 81 mg [facility] mg EC 1-31 by mouth ity of tablet 16:23: daily. [address] levalbut[place] 2020-0 Yes 1{puff} Inhale 1-2 [facility] l 45 1-31 Puffs 3 ity of mcg/actuati 16:23: (three) [place] as on inhaler 37 times Medical daily as Branch needed for Wheezing. aspirin 81 2019-0 Yes [id number] 81mg Take 81 mg [facility] mg EC 1-31 by mouth ity of tablet 16:23: daily. [address] levalbutero 2019-0 Yes 1{puff} Inhale 1-2 [facility] l 45 1-31 Puffs 3 ity of mcg/actuati 16:23: (three) [place] as on inhaler 37 times Medical daily as Branch needed for Wheezing. aspirin 81 2019-0 Yes [id number] 81mg Take 81 mg [facility] mg EC 1-31 by mouth ity of tablet 16:23: daily. [address] levalbut[place] 2019-0 Yes 1{puff} Inhale 1-2 [facility] l 45 1-31 Puffs 3 ity of mcg/actuati 16:23: (three) [place] as on inhaler 37 times Medical daily as Branch needed for Wheezing. aspirin 81 2019-0 Yes [id number] 81mg Take 81 mg [facility] mg EC 1-31 by mouth ity of tablet 16:23: daily. [address] levalbutero 2019-0 Yes 1{puff} Inhale 1-2 [facility] l 45 1-31 Puffs 3 ity of mcg/actuati 16:23: (three) [place] as on inhaler 37 times Medical daily as Branch needed for Wheezing. aspirin 81 2019-0 Yes [id number] 81mg Take 81 mg [facility] mg EC 1-31 by mouth ity of tablet 16:23: daily. [address] levalbut[place] 2019-0 Yes 1{puff} Inhale 1-2 [facility] l 45 1-31 Puffs 3 ity of mcg/actuati 16:23: (three) [place] as on inhaler 37 times Medical daily as Branch needed for Wheezing. aspirin 81 2019-0 Yes [id number] 81mg Take 81 mg [facility] mg EC 1-31 by mouth ity of tablet 16:23: daily. [address] levalbutero 2019-0 Yes 1{puff} Inhale 1-2 [facility] l 45 1-31 Puffs 3 ity of mcg/actuati 16:23: (three) [place] as on inhaler 37 times Medical daily as Branch needed for Wheezing. aspirin 81 2019-0 Yes [id number] 81mg Take 81 mg [facility] mg EC 1-31 by mouth ity of tablet 16:23: daily. [address] levalbut[place] 2019-0 Yes 1{puff} Inhale 1-2 [facility] l 45 1-31 Puffs 3 ity of mcg/actuati 16:23: (three) [place] as on inhaler 37 times Medical daily as Branch needed for Wheezing. aspirin 81 2019-0 Yes [id number] 81mg Take 81 mg [facility] mg EC 1-31 by mouth ity of tablet 16:23: daily. [address] levalbutero 2019-0 Yes 1{puff} Inhale 1-2 [facility] l 45 1-31 Puffs 3 ity of mcg/actuati 16:23: (three) [place] as on inhaler 37 times Medical daily as Branch needed for Wheezing. aspirin 81 2019-0 Yes [id number] 81mg Take 81 mg [facility] mg EC 1-31 by mouth ity of tablet 16:23: daily. [address] le[place]but[place] 0 Yes 1{puff} Inhale 1-2 [facility] l 45 1-31 Puffs 3 ity of mcg/actuati 16:23: (three) [place] as on inhaler 37 times Medical daily as Branch needed for Wheezing. aspirin 81 2019-0 Yes [id number] 81mg Take 81 mg [facility] mg EC 1-31 by mouth ity of tablet 16:23: daily. [address] levalbut[place] 2019-0 Yes 1{puff} Inhale 1-2 [facility] l 45 1-31 Puffs 3 ity of mcg/actuati 16:23: (three) [place] as on inhaler 37 times Medical daily as Branch needed for Wheezing. aspirin 81 2019-0 Yes [id number] 81mg Take 81 mg [facility] mg EC 1-31 by mouth ity of tablet 16:23: daily. [address] levalbutero 2019-0 Yes 1{puff} Inhale 1-2 [facility] l 45 1-31 Puffs 3 ity of mcg/actuati 16:23: (three) [place] as on inhaler 37 times Medical daily as Branch needed for Wheezing. aspirin 81 2019-0 Yes [id number] 81mg Take 81 mg [facility] mg EC 1-31 by mouth ity of tablet 16:23: daily. [address] levalbut[place] 2019-0 Yes 1{puff} Inhale 1-2 [facility] l 45 1-31 Puffs 3 ity of mcg/actuati 16:23: (three) [place] as on inhaler 37 times Medical daily as Branch needed for Wheezing. aspirin 81 2019-0 Yes [id number] 81mg Take 81 mg [facility] mg EC 1-31 by mouth ity of tablet 16:23: daily. [address] Branch levalbutero 2019-0 Yes 1{puff} Inhale 1-2 [facility] l 45 1-31 Puffs 3 ity of mcg/actuati 16:23: (three) [place] as on inhaler 37 times Medical daily as Branch needed for Wheezing. aspirin 81 2019-0 Yes [id number] 81mg Take 81 mg [facility] mg EC 1-31 by mouth ity of tablet 16:23: daily. [address] le[place]but[place] 0 Yes 1{puff} Inhale 1-2 [facility] l 45 1-31 Puffs 3 ity of mcg/actuati 16:23: (three) [place] as on inhaler 37 times Medical daily as Branch needed for Wheezing. aspirin 81 2019-0 Yes [id number] 81mg Take 81 mg [facility] mg EC 1-31 by mouth ity of tablet 16:23: daily. [address] levalbut[place] 0 Yes 1{puff} Inhale 1-2 [facility] l 45 1-31 Puffs 3 ity of mcg/actuati 16:23: (three) [place] as on inhaler 37 times Medical daily as Branch needed for Wheezing. aspirin 81 2019-0 Yes [id number] 81mg Take 81 mg [facility] mg EC 1-31 by mouth ity of tablet 16:23: daily. [address] levalbut[place] 0 Yes 1{puff} Inhale 1-2 [facility] l 45 1-31 Puffs 3 ity of mcg/actuati 16:23: (three) [place] as on inhaler 37 times Medical daily as Branch needed for Wheezing. aspirin 81 2019-0 Yes [id number] 81mg Take 81 mg [facility] mg EC 1-31 by mouth ity of tablet 16:23: daily. [address] levalbut[place] 2019-0 Yes 1{puff} Inhale 1-2 [facility] l 45 1-31 Puffs 3 ity of mcg/actuati 16:23: (three) [place] as on inhaler 37 times Medical daily as Branch needed for Wheezing. aspirin 81 2019-0 Yes [id number] 81mg Take 81 mg [facility] mg EC 1-31 by mouth ity of tablet 16:23: daily. [address] levalbut[place] 2019-0 Yes 1{puff} Inhale 1-2 [facility] l 45 1-31 Puffs 3 ity of mcg/actuati 16:23: (three) [place] as on inhaler 37 times Medical daily as Branch needed for Wheezing. aspirin 81 2019-0 Yes [id number] 81mg Take 81 mg [facility] mg EC 1-31 by mouth ity of tablet 16:23: daily. [address] Branch levalbutero 2019-0 Yes 1{puff} Inhale 1-2 [facility] l 45 1-31 Puffs 3 ity of mcg/actuati 16:23: (three) [place] as on inhaler 37 times Medical daily as Branch needed for Wheezing. aspirin 81 2019-0 Yes [id number] 81mg Take 81 mg [facility] mg EC 1-31 by mouth ity of tablet 16:23: daily. [address] levalbut[place] 0 Yes 1{puff} Inhale 1-2 [facility] l 45 1-31 Puffs 3 ity of mcg/actuati 16:23: (three) [place] as on inhaler 37 times Medical daily as Branch needed for Wheezing. aspirin 81 2019-0 Yes [id number] 81mg Take 81 mg [facility] mg EC 1-31 by mouth ity of tablet 16:23: daily. [address] levalbut[place] 2019-0 Yes 1{puff} Inhale 1-2 [facility] l 45 1-31 Puffs 3 ity of mcg/actuati 16:23: (three) [place] as on inhaler 37 times Medical daily as Branch needed for Wheezing. aspirin 81 2019-0 Yes [id number] 81mg Take 81 mg [facility] mg EC 1-31 by mouth ity of tablet 16:23: daily. [address] levalbut[place] 2019-0 Yes 1{puff} Inhale 1-2 [facility] l 45 1-31 Puffs 3 ity of mcg/actuati 16:23: (three) [place] as on inhaler 37 times Medical daily as Branch needed for Wheezing. aspirin 81 2019-0 Yes [id number] 81mg Take 81 mg [facility] mg EC 1-31 by mouth ity of tablet 16:23: daily. [address] levalbut[place] 2019-0 Yes 1{puff} Inhale 1-2 [facility] l 45 1-31 Puffs 3 ity of mcg/actuati 16:23: (three) [place] as on inhaler 37 times Medical daily as Branch needed for Wheezing. aspirin 81 2019-0 Yes [id number] 81mg Take 81 mg [facility] mg EC 1-31 by mouth ity of tablet 16:23: daily. [address] levalbut[place] 0 Yes 1{puff} Inhale 1-2 [facility] l 45 1-31 Puffs 3 ity of mcg/actuati 16:23: (three) [place] as on inhaler 37 times Medical daily as Branch needed for Wheezing. aspirin 81 2019-0 Yes [id number] 81mg Take 81 mg [facility] mg EC 1-31 by mouth ity of tablet 16:23: daily. [address] le[place] Yes 1{puff} Inhale 1-2 [facility] l 45 1-31 Puffs 3 ity of mcg/actuati 16:23: (three) [place] as on inhaler 37 times Medical daily as Branch needed for Wheezing. aspirin 81 2019-0 Yes [id number] 81mg Take 81 mg [facility] mg EC 1-31 by mouth ity of tablet 16:23: daily. [address] le[place] Yes 1{puff} Inhale 1-2 [facility] l 45 1-31 Puffs 3 ity of mcg/actuati 16:23: (three) [place] as on inhaler 37 times Medical daily as Branch needed for Wheezing. aspirin 81 2019-0 Yes [id number] 81mg Take 81 mg [facility] mg EC 1-31 by mouth ity of tablet 16:23: daily. [address] le[place] Yes 1{puff} Inhale 1-2 [facility] l 45 1-31 Puffs 3 ity of mcg/actuati 16:23: (three) [place] as on inhaler 37 times Medical daily as Branch needed for Wheezing. aspirin 81 2019-0 Yes [id number] 81mg Take 81 mg [facility] mg EC 1-31 by mouth ity of tablet 16:23: daily. [address] le[place] Yes 1{puff} Inhale 1-2 [facility] l 45 1-31 Puffs 3 ity of mcg/actuati 16:23: (three) [place] as on inhaler 37 times Medical daily as Branch needed for Wheezing. aspirin 81 2019-0 Yes [id number] 81mg Take 81 mg [facility] mg EC 1-31 by mouth ity of tablet 16:23: daily. [address] levalbut[place] 2019-0 Yes 1{puff} Inhale 1-2 [facility] l 45 1-31 Puffs 3 ity of mcg/actuati 16:23: (three) [facility] as on inhaler 37 times Medical daily as Branch needed for Wheezing. aspirin 81 2019-0 Yes [id number] 81mg Take 81 mg [facility] mg EC 1-31 by mouth ity of tablet 16:23: daily. [address] levalbut[place] 0 Yes 1{puff} Inhale 1-2 [facility] l 45 1-31 Puffs 3 ity of mcg/actuati 16:23: (three) [facility] as on inhaler 37 times Medical daily as Branch needed for Wheezing. aspirin 81 2019-0 Yes [id number] 81mg Take 81 mg [facility] mg EC 1-31 by mouth ity of tablet 16:23: daily. [address] le[place] Yes 1{puff} Inhale 1-2 [facility] l 45 1-31 Puffs 3 ity of mcg/actuati 16:23: (three) [place] as on inhaler 37 times Medical daily as Branch needed for Wheezing. aspirin 81 2019-0 Yes [id number] 81mg Take 81 mg [facility] mg EC 1-31 by mouth ity of tablet 16:23: daily. [address] levalbut[place] 0 Yes 1{puff} Inhale 1-2 [facility] l 45 1-31 Puffs 3 ity of mcg/actuati 16:23: (three) [facility] as on inhaler 37 times Medical daily as Branch needed for Wheezing. aspirin 81 2019-0 Yes [id number] 81mg Take 81 mg [facility] mg EC 1-31 by mouth ity of tablet 16:23: daily. [address] levalbut[place] 2019-0 Yes 1{puff} Inhale 1-2 [facility] l 45 1-31 Puffs 3 ity of mcg/actuati 16:23: (three) [facility] as on inhaler 37 times Medical daily as Branch needed for Wheezing. aspirin 81 2019-0 Yes [id number] 81mg Take 81 mg [facility] mg EC 1-31 by mouth ity of tablet 16:23: daily. [address] levalbut[place] 2019-0 Yes 1{puff} Inhale 1-2 [facility] l 45 1-31 Puffs 3 ity of mcg/actuati 16:23: (three) [facility] as on inhaler 37 times Medical daily as Branch needed for Wheezing. aspirin 81 2019-0 Yes [id number] 81mg Take 81 mg [facility] mg EC 1-31 by mouth ity of tablet 16:23: daily. [place] [address] Medical Branch levalbutero 2019-0 Yes 1{puff} Inhale 1-2 [facility] l 45 1-31 Puffs 3 ity of mcg/actuati 16:23: (three) [facility] as on inhaler 37 times Medical daily as Branch needed for Wheezing. budesonide- 2019-0 Yes 2{puff} Inhale 2 [facility] formoterol 1-31 Puffs 2 ity of (SYMBICORT) 16:16: (two) [place] 160-4.5 24 times Medical mcg/actuati daily. Branch on inhaler budesonide- 2019-0 Yes 2{puff} Inhale 2 [facility] formoterol 1-31 Puffs 2 ity of (SYMBICORT) 16:16: (two) [place] 160-4.5 24 times Medical mcg/actuati daily. Branch on inhaler budesonide- 2019-0 Yes 2{puff} Inhale 2 [facility] formoterol 1-31 Puffs 2 ity of (SYMBICORT) 16:16: (two) [place] 160-4.5 24 times Medical mcg/actuati daily. Branch on inhaler budesonide- 2019-0 Yes 2{puff} Inhale 2 [facility] formoterol 1-31 Puffs 2 ity of (SYMBICORT) 16:16: (two) [place] 160-4.5 24 times Medical mcg/actuati daily. Branch on inhaler budesonide- 2019-0 Yes 2{puff} Inhale 2 [facility] formoterol 1-31 Puffs 2 ity of (SYMBICORT) 16:16: (two) [place] 160-4.5 24 times Medical mcg/actuati daily. Branch on inhaler budesonide- 2019-0 Yes 2{puff} Inhale 2 [facility] formoterol 1-31 Puffs 2 ity of (SYMBICORT) 16:16: (two) [place] 160-4.5 24 times Medical mcg/actuati daily. Branch on inhaler budesonide- 2020-0 Yes 2{puff} Inhale 2 [facility] formoterol 1-31 Puffs 2 ity of (SYMBICORT) 16:16: (two) [place] 160-4.5 24 times Medical mcg/actuati daily. Branch on inhaler budesonide- 2020-0 Yes 2{puff} Inhale 2 [facility] formoterol 1-31 Puffs 2 ity of (SYMBICORT) 16:16: (two) [place] 160-4.5 24 times Medical mcg/actuati daily. Branch on inhaler budesonide- 2020-0 Yes 2{puff} Inhale 2 [facility] formoterol 1-31 Puffs 2 ity of (SYMBICORT) 16:16: (two) [place] 160-4.5 24 times Medical mcg/actuati daily. Branch on inhaler budesonide- 2020-0 Yes 2{puff} Inhale 2 [facility] formoterol 1-31 Puffs 2 ity of (SYMBICORT) 16:16: (two) [place] 160-4.5 24 times Medical mcg/actuati daily. Branch on inhaler budesonide- 2020-0 Yes 2{puff} Inhale 2 [facility] formoterol 1-31 Puffs 2 ity of (SYMBICORT) 16:16: (two) [place] 160-4.5 24 times Medical mcg/actuati daily. Branch on inhaler carvediloL 2020-0 Yes [id number] 12.5mg Take 1 [facility] 12.5 mg 1-31 07 tablet by ity of tablet 00:00: mouth 2 00 (two) Medical times Branch daily with meals. carvediloL 2020-0 Yes [id number] 12.5mg Take 1 [facility] 12.5 mg 1-31 07 tablet by ity of tablet 00:00: mouth 2 00 (two) Medical times Branch daily with meals. carvediloL 2020-0 Yes [id number] 12.5mg Take 1 [facility] 12.5 mg 1-31 07 tablet by ity of tablet 00:00: mouth 2 00 (two) Medical times Branch daily with meals. carvediloL 2020-0 Yes [id number] 12.5mg Take 1 [facility] 12.5 mg 1-31 07 tablet by ity of tablet 00:00: mouth 2 (two) Medical times Branch daily with meals. carvediloL 2020-0 Yes [id number] 12.5mg Take 1 [facility] 12.5 mg 1-31 07 tablet by ity of tablet 00:00: mouth 2 (two) Medical times Branch daily with meals. carvediloL 2020-0 Yes [id number] 12.5mg Take 1 [facility] 12.5 mg 1-31 07 tablet by ity of tablet 00:00: mouth 2 (two) Medical times Branch daily with meals. carvediloL 2020-0 Yes [id number] 12.5mg Take 1 [facility] 12.5 mg 1-31 07 tablet by ity of tablet 00:00: mouth (two) Medical times Branch daily with meals. carvediloL 2020-0 Yes [id number] 12.5mg Take 1 [facility] 12.5 mg 1-31 07 tablet by ity of tablet 00:00: mouth (two) Medical times Branch daily with meals. carvediloL 2020-0 Yes [id number] 12.5mg Take 1 [facility] 12.5 mg 1-31 07 tablet by ity of tablet 00:00: mouth (two) Medical times Branch daily with meals. carvediloL 2020-0 Yes [id number] 12.5mg Take 1 [facility] 12.5 mg 1-31 07 tablet by ity of tablet 00:00: mouth (two) Medical times Branch daily with meals. carvediloL 2020-0 Yes [id number] 12.5mg Take 1 [facility] 12.5 mg 1-31 07 tablet by ity of tablet 00:00: mouth (two) Medical times Branch daily with meals. carvediloL 2020-0 Yes [id number] 12.5mg Take 1 [facility] 12.5 mg 1-31 07 tablet by ity of tablet 00:00: mouth (two) Medical times Branch daily with meals. carvediloL 2020-0 Yes [id number] 12.5mg Take 1 [facility] 12.5 mg 1-31 07 tablet by ity of tablet 00:00: mouth 2 (two) Medical times Branch daily with meals. carvediloL 2020-0 2020- No [id number] 12.5mg Take 1 [facility] 12.5 mg 1-31 02-13 07 tablet by ity of tablet 00:00: 00:00 mouth 2 [place] 00 :00 (two) Medical times Branch daily with meals. carvediloL 2019-2019- No [id number] 12.5mg Take 1 [facility] 12.5 mg 07-09 07 tablet by ity of tablet 00:00: 00:00 mouth 2 [place] 00 :00 (two) Medical times Branch daily with meals. carvediloL 2019-2019- No [id number] 12.5mg Take 2 [facility] 6.25 mg 07-09 07 tablets by ity o f tablet 00:00: 00:00 mouth 2 [place] 00 :00 (two) Medical times Branch daily with meals. carvediloL 2019-2019- No [id number] 12.5mg Take 2 [facility] 6.25 mg 07-09 07 tablets by ity o f tablet 00:00: 00:00 mouth 2 [place] 00 :00 (two) Medical times Branch daily with meals. Mometasone- 2020- No Inhale 2 U nivers Formoterol -16 -16 (two) ity of (DULERA) 14:45: 00:00 times [place] 100-5 22 :00 daily. Medical mcg/actuati Branch on inhaler Mometasone- 2020- No Inhale 2 U nivers Formoterol -16 -16 (two) ity of (DULERA) 14:45: 00:00 times [place] 100-5 22 :00 daily. Medical mcg/actuati Branch on inhaler benzonatate 2020- No 100mg Take 100 [facility] 100 mg 1-16 01-16 mg by ity of capsule 14:44: 00:00 mouth 3 [place] 43 :00 (three) Medical times Branch daily as needed for Cough. benzonatate 2019- 2020- No 100mg Take 100 [facility] 100 mg 1-16 01-16 mg by ity of capsule 14:44: 00:00 mouth 3 [place] 43 :00 (three) Medical times Branch daily as needed for Cough. ibuprofen 2019-0 Yes [id number] 600mg Take 600 [facility] 600 mg 1-12 mg by ity of tablet 00:29: mouth [place] 24 every 6 Medical (six) Branch hours as needed. budesonide- 2019-0 Yes 2{puff} Inhale 2 [facility] formoterol 1-12 Puffs 2 ity of (SYMBICORT) 00:29: (two) [place] 160-4.5 24 times Medical mcg/actuati daily. Branch on inhaler nitroglycer 2020-[id number] 0[address]4 [facility] in 0.4 mg 1-12 mg under ity of sublingual 00:29: the tongue [place] tablet 24 every 5 Medical (five) Branch minutes as needed for Chest pain. Not to exceed 3 doses levalbutero 2020-0 Yes 1{puff} Inhale 1-2 [facility] l 45 1-12 Puffs 3 ity of mcg/actuati 00:29: (three) [facility] as on inhaler 24 times Medical daily as Branch needed for Wheezing. nitroglycer 2020-[id number] 0.4 [facility] in 0.4 mg 1-12 mg under ity of sublingual 00:29: the tongue [place] tablet 24 every 5 Medical (five) Branch minutes as needed for Chest pain. Not to exceed 3 doses nitroglycer 2020-[id number] 0.4 [facility] in 0.4 mg 1-12 mg under ity of sublingual 00:29: the tongue [place] tablet 24 every 5 Medical (five) Branch minutes as needed for Chest pain. Not to exceed 3 doses nitroglycer 2020-[id number] 0.4 [facility] in 0.4 mg 1-12 mg under ity of sublingual 00:29: the tongue [place] tablet 24 every 5 Medical (five) Branch minutes as needed for Chest pain. Not to exceed 3 doses nitroglycer 2020-[id number] 0.4 [facility] in 0.4 mg 1-12 mg under ity of sublingual 00:29: the tongue [place] tablet 24 every 5 Medical (five) Branch minutes as needed for Chest pain. Not to exceed 3 doses aspirin 81 2020-0 Yes [id number] 81mg Take 81 mg [facility] mg EC 1-12 by mouth ity of tablet 00:29: daily. [place] 24 Medical Branch nitroglycer 2020-[id number] 0.4 [facility] in 0.4 mg 1-12 mg under ity of sublingual 00:29: the tongue [place] tablet 24 every 5 Medical (five) Branch minutes as needed for Chest pain. Not to exceed 3 doses nitroglycer 2020-[id number] 0.4 [facility] in 0.4 mg 1-12 mg under ity of sublingual 00:29: the tongue [place] tablet 24 every 5 Medical (five) Branch minutes as needed for Chest pain. Not to exceed 3 doses ibuprofen 2020-0 Yes [id number] 600mg Take 600 [facility] 600 mg 1-12 mg by ity of tablet 00:29: mouth [place] 24 every 6 Medical (six) Branch hours as needed. nitroglycer 2020-[id number] 0.4 [facility] in 0.4 mg 1-12 mg under ity of sublingual 00:29: the tongue [place] tablet 24 every 5 Medical (five) Branch minutes as needed for Chest pain. Not to exceed 3 doses budesonide- 2020-0 Yes 2{puff} Inhale 2 [facility] formoterol 1-12 Puffs 2 ity of (SYMBICORT) 00:29: (two) [place] 160-4.5 24 times Medical mcg/actuati daily. Branch on inhaler levalbutero 2020-0 Yes 1{puff} Inhale 1-2 [facility] l 45 1-12 Puffs 3 ity of mcg/actuati 00:29: (three) [place] as on inhaler 24 times Medical daily as Branch needed for Wheezing. nitroglycer 2020-[id number] 0.4 [facility] in 0.4 mg 1-12 mg under ity of sublingual 00:29: the tongue [place] tablet 24 every 5 Medical (five) Branch minutes as needed for Chest pain. Not to exceed 3 doses nitroglycer 2020-[id number] 0.4 [facility] in 0.4 mg 1-12 mg under ity of sublingual 00:29: the tongue [place] tablet 24 every 5 Medical (five) Branch minutes as needed for Chest pain. Not to exceed 3 doses nitroglycer 2020-[id number] 0.4 [facility] in 0.4 mg 1-12 mg under ity of sublingual 00:29: the tongue [place] tablet 24 every 5 Medical (five) Branch minutes as needed for Chest pain. Not to exceed 3 doses nitroglycer 2020-[id number] 0.4 [facility] in 0.4 mg 1-12 mg under ity of sublingual 00:29: the tongue [place] tablet 24 every 5 Medical (five) Branch minutes as needed for Chest pain. Not to exceed 3 doses nitroglycer 2020-[id number] 0.4 [facility] in 0.4 mg 1-12 mg under ity of sublingual 00:29: the tongue [place] tablet 24 every 5 Medical (five) Branch minutes as needed for Chest pain. Not to exceed 3 doses nitroglycer 2020-[id number] 0.4 [facility] in 0.4 mg 1-12 mg under ity of sublingual 00:29: the tongue [place] tablet 24 every 5 Medical (five) Branch minutes as needed for Chest pain. Not to exceed 3 doses nitroglycer 2020-[id number] 0.4 [facility] in 0.4 mg 1-12 mg under ity of sublingual 00:29: the tongue [place] tablet 24 every 5 Medical (five) Branch minutes as needed for Chest pain. Not to exceed 3 doses nitroglycer 2020-[id number] 0.4 [facility] in 0.4 mg 1-12 mg under ity of sublingual 00:29: the tongue [place] tablet 24 every 5 Medical (five) Branch minutes as needed for Chest pain. Not to exceed 3 doses nitroglycer 2020-[id number] 0.4 [facility] in 0.4 mg 1-12 mg under ity of sublingual 00:29: the tongue [place] tablet 24 every 5 Medical (five) Branch minutes as needed for Chest pain. Not to exceed 3 doses nitroglycer 2020-[id number] 0.4 [facility] in 0.4 mg 1-12 mg under ity of sublingual 00:29: the tongue [place] tablet 24 every 5 Medical (five) Branch minutes as needed for Chest pain. Not to exceed 3 doses nitroglycer 2020-[id number] 0.4 [facility] in 0.4 mg 1-12 mg under ity of sublingual 00:29: the tongue [place] tablet 24 every 5 Medical (five) Branch minutes as needed for Chest pain. Not to exceed 3 doses nitroglycer 2020-[id number] 0.4 [facility] in 0.4 mg 1-12 mg under ity of sublingual 00:29: the tongue [place] tablet 24 every 5 Medical (five) Branch minutes as needed for Chest pain. Not to exceed 3 doses nitroglycer 2020-[id number] 0.4 [facility] in 0.4 mg 1-12 mg under ity of sublingual 00:29: the tongue [place] tablet 24 every 5 Medical (five) Branch minutes as needed for Chest pain. Not to exceed 3 doses aspirin 81 2020-0 Yes [id number] 81mg Take 81 mg [facility] mg EC 1-12 by mouth ity of tablet 00:29: daily. [place] 24 Medical Branch nitroglycer 2020-[id number] 0.4 [facility] in 0.4 mg 1-12 mg under ity of sublingual 00:29: the tongue [place] tablet 24 every 5 [facility] (five) Branch minutes as needed for Chest pain. Not to exceed 3 doses nitroglycer 2020-[id number] 0.4 [facility] in 0.4 mg 1-12 mg under ity of sublingual 00:29: the tongue [place] tablet 24 every 5 [facility] (five) Branch minutes as needed for Chest pain. Not to exceed 3 doses ibuprofen 2020-0 Yes [id number] 600mg Take 600 [facility] 600 mg 1-12 mg by ity of tablet 00:29: mouth [place] 24 every 6 Medical (six) Branch hours as needed. nitroglycer 2020-[id number] 0[address]4 [facility] in 0.4 mg 1-12 mg under ity of sublingual 00:29: the tongue [place] tablet 24 every 5 [facility] (five) Branch minutes as needed for Chest pain. Not to exceed 3 doses nitroglycer 2020-[id number] 0.4 [facility] in 0.4 mg 1-12 mg under ity of sublingual 00:29: the tongue [place] tablet 24 every 5 [facility] (five) Branch minutes as needed for Chest pain. Not to exceed 3 doses budesonide- 2020-0 Yes 2{puff} Inhale 2 [facility] formoterol 1-12 Puffs 2 ity of (SYMBICORT) 00:29: (two) [place] 160-4.5 24 times Medical mcg/actuati daily. Branch on inhaler nitroglycer 2020-[id number] 0.4 [facility] in 0.4 mg 1-12 mg under ity of sublingual 00:29: the tongue [place] tablet 24 every 5 [facility] (five) Branch minutes as needed for Chest pain. Not to exceed 3 doses levalbutero 2020-0 Yes 1{puff} Inhale 1-2 [facility] l 45 1-12 Puffs 3 ity of mcg/actuati 00:29: (three) [place] on inhaler 24 times Medical daily as Branch needed for Wheezing. nitroglycer 2020-[id number] 0.4 [facility] in 0.4 mg 1-12 mg under ity of sublingual 00:29: the tongue [place] tablet 24 every 5 [facility] (five) Branch minutes as needed for Chest pain. Not to exceed 3 doses nitroglycer 2020-[id number] 0.4 [facility] in 0.4 mg 1-12 mg under ity of sublingual 00:29: the tongue [place] tablet 24 every 5 [facility] (five) Branch minutes as needed for Chest pain. Not to exceed 3 doses nitroglycer 2020-[id number] 0.4 [facility] in 0.4 mg 1-12 mg under ity of sublingual 00:29: the tongue [place] tablet 24 every 5 [facility] (five) Branch minutes as needed for Chest pain. Not to exceed 3 doses nitroglycer 2020-[id number] 0.4 [facility] in 0.4 mg 1-12 mg under ity of sublingual 00:29: the tongue [place] tablet 24 every 5 [facility] (five) Branch minutes as needed for Chest pain. Not to exceed 3 doses nitroglycer 2020-[id number] 0.4 [facility] in 0.4 mg 1-12 mg under [facility]y of sublingual 00:29: the tongue [place] tablet 24 every 5 [facility] (five) Branch minutes as needed for Chest pain. Not to exceed 3 doses nitroglycer 2020-[id number] 0.4 [facility] in 0.4 mg 1-12 mg under [facility]y of sublingual 00:29: the tongue [place] tablet 24 every 5 [facility] (five) Branch minutes as needed for Chest pain. Not to exceed 3 doses nitroglycer 2020-[id number] 0.4 [facility] in 0.4 mg 1-12 mg under ity of sublingual 00:29: the tongue [place] tablet 24 every 5 [facility] (five) Branch minutes as needed for Chest pain. Not to exceed 3 doses aspirin 81 2020-0 Yes [id number] 81mg Take 81 mg [facility] mg EC 1-12 by mouth ity of tablet 00:29: daily. [place] 24 Medical Branch nitroglycer 2020-[id number] 0.4 [facility] in 0.4 mg 1-12 mg under ity of sublingual 00:29: the tongue [place] tablet 24 every 5 [facility] (five) Branch minutes as needed for Chest pain. Not to exceed 3 doses nitroglycer 2020-[id number] 0.4 [facility] in 0.4 mg 1-12 mg under ity of sublingual 00:29: the tongue [place] tablet 24 every 5 [facility] (five) Branch minutes as needed for Chest pain. Not to exceed 3 doses nitroglycer 2020-[id number] 0.4 [facility] in 0.4 mg 1-12 mg under ity of sublingual 00:29: the tongue [place] tablet 24 every 5 [facility] (five) Branch minutes as needed for Chest pain. Not to exceed 3 doses ibuprofen 2020-0 Yes [id number] 600mg Take 600 [facility] 600 mg 1-12 mg by it[facility] of tablet 00:29: mouth [place] 24 every 6 Medical (six) Branch hours as needed. nitroglycer 2020-[id number] 0.4 [facility] in 0.4 mg 1-12 mg under ity of sublingual 00:29: the tongue [place] tablet 24 every 5 [facility] (five) Branch minutes as needed for Chest pain. Not to exceed 3 doses budesonide- 2020-0 Yes 2{puff} Inhale 2 [facility] formoterol 1-12 Puffs 2 ity of (SYMBICORT) 00:29: (two) [place] 160-4.5 24 times Medical mcg/actuati daily. Branch on inhaler levalbutero 2020-0 Yes 1{puff} Inhale 1-2 [facility] l 45 1-12 Puffs 3 ity of mcg/actuati 00:29: (three) [place] inhaler 24 times Medical daily as Branch needed for Wheezing. nitroglycer 2020-[id number] 0.4 [facility] in 0.4 mg 1-12 mg under ity of sublingual 00:29: the tongue [place] tablet 24 every 5 [facility] (five) Branch minutes as needed for Chest pain. Not to exceed 3 doses nitroglycer 2020-[id number] 0.4 [facility] in 0.4 mg 1-12 mg under ity of sublingual 00:29: the tongue [place] tablet 24 every 5 [facility] (five) Branch minutes as needed for Chest pain. Not to exceed 3 doses nitroglycer 2020-[id number] 0.4 [facility] in 0.4 mg 1-12 mg under ity of sublingual 00:29: the tongue [place] tablet 24 every 5 [facility] (five) Branch minutes as needed for Chest pain. Not to exceed 3 doses nitroglycer 2020-[id number] 0.4 [facility] in 0.4 mg 1-12 mg under ity of sublingual 00:29: the tongue [place] tablet 24 every 5 [facility] (five) Branch minutes as needed for Chest pain. Not to exceed 3 doses nitroglycer 2020-[id number] 0.4 [facility] in 0.4 mg 1-12 mg under [facility]y of sublingual 00:29: the tongue [place] tablet 24 every 5 [facility] (five) Branch minutes as needed for Chest pain. Not to exceed 3 doses nitroglycer 2020-[id number] 0.4 [facility] in 0.4 mg 1-12 mg under ity of sublingual 00:29: the tongue [place] tablet 24 every 5 [facility] (five) Branch minutes as needed for Chest pain. Not to exceed 3 doses aspirin 81 2020-0 Yes [id number] 81mg Take 81 mg [facility] mg EC 1-12 by mouth ity of tablet 00:29: daily. [place] [address] Medical Branch nitroglycer 2020-[id number] 0.4 [facility] in 0.4 mg 1-12 mg under ity of sublingual 00:29: the tongue [place] tablet 24 every 5 [facility] (five) Branch minutes as needed for Chest pain. Not to exceed 3 doses nitroglycer 2020-[id number] 0.4 [facility] in 0.4 mg 1-12 mg under ity of sublingual 00:29: the tongue [place] tablet 24 every 5 [facility] (five) Branch minutes as needed for Chest pain. Not to exceed 3 doses ibuprofen 2020-0 Yes [id number] 600mg Take 600 [facility] 600 mg 1-12 mg by ity of tablet 00:29: mouth [place] 24 every 6 Medical (six) Branch hours as needed. nitroglycer 2020-[id number] 0.4 [facility] in 0.4 mg 1-12 mg under ity of sublingual 00:29: the tongue [place] tablet 24 every 5 [facility] (five) Branch minutes as needed for Chest pain. Not to exceed 3 doses budesonide- 2020-0 Yes 2{puff} Inhale 2 [facility] formoterol 1-12 Puffs 2 ity of (SYMBICORT) 00:29: (two) [place] 160-4.5 24 times Medical mcg/actuati daily. Branch on inhaler levalbutero 2019-0 Yes 1{puff} Inhale 1-2 [facility] l 45 1-12 Puffs 3 ity of mcg/actuati 00:29: (three) [place] inhaler 24 times Medical daily as Branch needed for Wheezing. nitroglycer 2020-[id number] 0.4 [facility] in 0.4 mg 1-12 mg under [facility]y of sublingual 00:29: the tongue [place] tablet 24 every 5 [facility] (five) Branch minutes as needed for Chest pain. Not to exceed 3 doses nitroglycer 2020-[id number] 0.4 [facility] in 0.4 mg 1-12 mg under ity of sublingual 00:29: the tongue [place] tablet 24 every 5 [facility] (five) Branch minutes as needed for Chest pain. Not to exceed 3 doses nitroglycer 2020-[id number] 0.4 [facility] in 0.4 mg 1-12 mg under ity of sublingual 00:29: the tongue [place] tablet 24 every 5 [facility] (five) Branch minutes as needed for Chest pain. Not to exceed 3 doses nitroglycer 2020-[id number] 0.4 [facility] in 0.4 mg 1-12 mg under ity of sublingual 00:29: the tongue [place] tablet 24 every 5 [facility] (five) Branch minutes as needed for Chest pain. Not to exceed 3 doses nitroglycer 2020-[id number] 0.4 [facility] in 0.4 mg 1-12 mg under ity of sublingual 00:29: the tongue [place] tablet 24 every 5 [facility] (five) Branch minutes as needed for Chest pain. Not to exceed 3 doses nitroglycer 2020-[id number] 0.4 [facility] in 0.4 mg 1-12 mg under ity of sublingual 00:29: the tongue [place] tablet 24 every 5 Medical (five) Branch minutes as needed for Chest pain. Not to exceed 3 doses aspirin 81 2020-0 Yes [id number] 81mg Take 81 mg [facility] mg EC 1-12 by mouth ity of tablet 00:29: daily. [place] [address] Medical Branch nitroglycer 2020-[id number] 0.4 [facility] in 0.4 mg 1-12 mg under ity of sublingual 00:29: the tongue [place] tablet 24 every 5 [facility] (five) Branch minutes as needed for Chest pain. Not to exceed 3 doses nitroglycer 2020-[id number] 0.4 [facility] in 0.4 mg 1-12 mg under ity of sublingual 00:29: the tongue [place] tablet 24 every 5 Medical (five) Branch minutes as needed for Chest pain. Not to exceed 3 doses ibuprofen 2020-0 Yes [id number] 600mg Take 600 [facility] 600 mg 1-12 mg by ity of tablet 00:29: mouth [place] 24 every 6 Medical (six) Branch hours as needed. nitroglycer 2020-[id number] 0.4 [facility] in 0.4 mg 1-12 mg under ity of sublingual 00:29: the tongue [place] tablet 24 every 5 Medical (five) Branch minutes as needed for Chest pain. Not to exceed 3 doses budesonide- 2020-0 Yes 2{puff} Inhale 2 [facility] formoterol 1-12 Puffs 2 ity of (SYMBICORT) 00:29: (two) [place] 160-4.5 24 times Medical mcg/actuati daily. Branch on inhaler levalbutero 2020-0 Yes 1{puff} Inhale 1-2 [facility] l 45 1-12 Puffs 3 ity of mcg/actuati 00:29: (three) [place] on inhaler 24 times Medical daily as Branch needed for Wheezing. nitroglycer 2020-[id number] 0.4 [facility] in 0.4 mg 1-12 mg under ity of sublingual 00:29: the tongue [place] tablet 24 every 5 [facility] (five) Branch minutes as needed for Chest pain. Not to exceed 3 doses nitroglycer 2020-[id number] 0.4 [facility] in 0.4 mg 1-12 mg under ity of sublingual 00:29: the tongue [place] tablet 24 every 5 Medical (five) Branch minutes as needed for Chest pain. Not to exceed 3 doses nitroglycer 2020-[id number] 0.4 [facility] in 0.4 mg 1-12 mg under ity of sublingual 00:29: the tongue [place] tablet 24 every 5 Medical (five) Branch minutes as needed for Chest pain. Not to exceed 3 doses nitroglycer 2020-[id number] 0.4 [facility] in 0.4 mg 1-12 mg under ity of sublingual 00:29: the tongue [place] tablet 24 every 5 Medical (five) Branch minutes as needed for Chest pain. Not to exceed 3 doses aspirin 81 2020-0 Yes [id number] 81mg Take 81 mg [facility] mg EC -12 by mouth ity of tablet 00:29: daily. [place] [address] Medical Branch nitroglycer 2020-[id number] 0[address]4 [facility] in 0.4 mg 1-12 mg under ity of sublingual 00:29: the tongue [place] tablet 24 every 5 [facility] (five) Branch minutes as needed for Chest pain. Not to exceed 3 doses nitroglycer 2020-[id number] 0.4 [facility] in 0.4 mg 1-12 mg under ity of sublingual 00:29: the tongue [place] tablet 24 every 5 [facility] (five) Branch minutes as needed for Chest pain. Not to exceed 3 doses nitroglycer 2020-[id number] 0.4 [facility] in 0.4 mg 1-12 mg under ity of sublingual 00:29: the tongue [place] tablet 24 every 5 [facility] (five) Branch minutes as needed for Chest pain. Not to exceed 3 doses levothyroxi 2020-0 2020- No [id number] 50ug Take 1 [facility] ne 50 mcg -11 07-20 tablet by ity of tablet 00:00: 05:59 mouth [place] 00 :00 every Medical morning Branch for 30 days. levothyroxi 2020-0 2020- No [id number] 50ug Take 1 [facility] ne 50 mcg 06-19 tablet by ity of tablet 00:00: 05:59 mouth [place] 00 :00 every Medical morning Branch for 30 days. levothyroxi 2020- 2020- No [id number] 50ug Take 1 [facility] ne 50 mcg 06-19 tablet by ity of tablet 00:00: 05:59 mouth [place] 00 :00 every Medical morning Branch for 30 days. levothyroxi 2019- 2020- No [id number] 50ug Take 1 [facility] ne 50 mcg 06-19 tablet by ity of tablet 00:00: 05:59 mouth [place] 00 :00 every Medical morning Branch for 30 days. levothyroxi 2019- 2020- No [id number] 50ug Take 1 [facility] ne 50 mcg 06-19 tablet by ity of tablet 00:00: 05:59 mouth [place] 00 :00 every Medical morning Branch for 30 days. levothyroxi 2019- 2020- No [id number] 50ug Take 1 [facility] ne 50 mcg 06-19 tablet by ity of tablet 00:00: 05:59 mouth [place] 00 :00 every Medical morning Branch for 30 days. levothyroxi 2019- 2020- No [id number] 50ug Take 1 [facility] ne 50 mcg 06-19 tablet by ity of tablet 00:00: 05:59 mouth [place] 00 :00 every Medical morning Branch for 30 days. levothyroxi 2019- 2020- No [id number] 50ug Take 1 [facility] ne 50 mcg 06-19 tablet by ity of tablet 00:00: 05:59 mouth [place] 00 :00 every Medical morning Branch for 30 days. levothyroxi 2019- 2020- No [id number] 50ug Take 1 [facility] ne 50 mcg 06-19 tablet by ity of tablet 00:00: 05:59 mouth [place] 00 :00 every Medical morning Branch for 30 days. levothyroxi 2020- 2020- No [id number] 50ug Take 1 [facility] ne 50 mcg 06-19 tablet by ity of tablet 00:00: 00:00 mouth [place] 00 :00 every Medical morning Branch for 30 days. levothyroxi 2020- 2020- No [id number] 50ug Take 1 [facility] ne 50 mcg 06-19 tablet by ity of tablet 00:00: 00:00 mouth [place] 00 :00 every Medical morning Branch for 30 days. levothyroxi 2019- 2020- No [id number] 50ug Take 1 [facility] ne 50 mcg 06-19 tablet by ity of tablet 00:00: 00:00 mouth [place] 00 :00 every Medical morning Branch for 30 days. levothyroxi 2019- No [id number] 50ug Take 1 [facility] ne 50 mcg 06-19 tablet by ity of tablet 00:00: 00:00 mouth [place] 00 :00 every Medical morning Branch for 30 days. levothyroxi 2020- No [id number] 50ug Take 1 [facility] ne 50 mcg 06-19 tablet by ity of tablet 00:00: 00:00 mouth [place] 00 :00 every Medical morning Branch for 30 days. levothyroxi 2019- No [id number] 50ug Take 1 [facility] ne 50 mcg 06-19 tablet by ity of tablet 00:00: 00:00 mouth [place] 00 :00 every Medical morning Branch for 30 days. levothyroxi 2019- No [id number] 50ug Take 1 [facility] ne 50 mcg 06-19 tablet by ity of tablet 00:00: 00:00 mouth [place] 00 :00 every Medical morning Branch for 30 days. isosorbide 2020-0 Yes [id number] TAKE 1 [facility] mononitrate 1-10 07 TABLET BY ity of 30 mg 24 hr 00:00: MOUTH ONCE [place] tablet 00 DAILY Medical Branch isosorbide 2020-0 Yes [id number] TAKE 1 [facility] mononitrate 1-10 07 TABLET BY ity of 30 mg 24 hr 00:00: MOUTH ONCE [place] tablet 00 DAILY Medical Branch isosorbide 2020-0 Yes [id number] TAKE 1 [facility] mononitrate 1-10 07 TABLET BY ity of 30 mg 24 hr 00:00: MOUTH ONCE [place] tablet 00 DAILY Medical Branch isosorbide 2020-0 Yes [id number] TAKE 1 [facility] mononitrate 1-10 07 TABLET BY ity of 30 mg 24 hr 00:00: MOUTH ONCE [place] tablet 00 DAILY Medical Branch isosorbide 2020-0 Yes [id number] TAKE 1 [facility] mononitrate 1-10 07 TABLET BY ity of 30 mg 24 hr 00:00: MOUTH ONCE [place] tablet 00 DAILY Medical Branch isosorbide 2020-0 Yes [id number] TAKE 1 [facility] mononitrate 1-10 07 TABLET BY ity of 30 mg 24 hr 00:00: MOUTH ONCE [place] tablet 00 DAILY Medical Branch isosorbide 2020-0 Yes [id number] TAKE 1 [facility] mononitrate 1-10 07 TABLET BY ity of 30 mg 24 hr 00:00: MOUTH ONCE [place] tablet 00 DAILY Medical Branch isosorbide 2020-0 Yes [id number] TAKE 1 [facility] mononitrate 1-10 07 TABLET BY ity of 30 mg 24 hr 00:00: MOUTH ONCE [place] tablet 00 DAILY Medical Branch isosorbide 2020-0 Yes [id number] TAKE 1 [facility] mononitrate 1-10 07 TABLET BY ity of 30 mg 24 hr 00:00: MOUTH ONCE [place] tablet 00 DAILY Medical Branch isosorbide 2020-0 Yes [id number] TAKE 1 [facility] mononitrate 1-10 07 TABLET BY ity of 30 mg 24 hr 00:00: MOUTH ONCE [place] tablet 00 DAILY Medical Branch isosorbide 2020-0 Yes [id number] TAKE 1 [facility] mononitrate 1-10 07 TABLET BY ity of 30 mg 24 hr 00:00: MOUTH ONCE [place] tablet 00 DAILY Medical Branch isosorbide 2020-0 Yes [id number] TAKE 1 [facility] mononitrate 1-10 07 TABLET BY ity of 30 mg 24 hr 00:00: MOUTH ONCE [place] tablet 00 DAILY Medical Branch isosorbide 2020-0 Yes [id number] TAKE 1 [facility] mononitrate 1-10 07 TABLET BY ity of 30 mg 24 hr 00:00: MOUTH ONCE [place] tablet 00 DAILY Medical Branch isosorbide 2020-0 Yes [id number] TAKE 1 [facility] mononitrate 1-10 07 TABLET BY ity of 30 mg 24 hr 00:00: MOUTH ONCE [place] tablet 00 DAILY Medical Branch isosorbide 2020-0 Yes [id number] TAKE 1 [facility] mononitrate 1-10 07 TABLET BY ity of 30 mg 24 hr 00:00: MOUTH ONCE [place] tablet 00 DAILY Medical Branch isosorbide 2020-0 Yes [id number] TAKE 1 [facility] mononitrate 1-10 07 TABLET BY ity of 30 mg 24 hr 00:00: MOUTH ONCE [place] tablet 00 DAILY Medical Branch isosorbide 2020-0 Yes [id number] TAKE 1 [facility] mononitrate 1-10 07 TABLET BY ity of 30 mg 24 hr 00:00: MOUTH ONCE [place] tablet 00 DAILY Medical Branch isosorbide 2020-0 Yes [id number] TAKE 1 [facility] mononitrate 1-10 07 TABLET BY ity of 30 mg 24 hr 00:00: MOUTH ONCE [place] tablet 00 DAILY Medical Branch isosorbide 2020-0 Yes [id number] TAKE 1 [facility] mononitrate 1-10 07 TABLET BY ity of 30 mg 24 hr 00:00: MOUTH ONCE [place] tablet 00 DAILY Medical Branch isosorbide 2020-0 Yes [id number] TAKE 1 [facility] mononitrate 1-10 07 TABLET BY ity of 30 mg 24 hr 00:00: MOUTH ONCE [place] tablet 00 DAILY Medical Branch isosorbide 2020-0 Yes [id number] TAKE 1 [facility] mononitrate 1-10 07 TABLET BY ity of 30 mg 24 hr 00:00: MOUTH ONCE [place] tablet 00 DAILY Medical Branch isosorbide 2020-0 Yes [id number] TAKE 1 [facility] mononitrate 1-10 07 TABLET BY ity of 30 mg 24 hr 00:00: MOUTH ONCE [place] tablet 00 DAILY Medical Branch isosorbide 2020-0 Yes [id number] TAKE 1 [facility] mononitrate 1-10 07 TABLET BY ity of 30 mg 24 hr 00:00: MOUTH ONCE [place] tablet 00 DAILY Medical Branch isosorbide 2020-0 Yes [id number] TAKE 1 [facility] mononitrate 1-10 07 TABLET BY ity of 30 mg 24 hr 00:00: MOUTH ONCE [place] tablet 00 DAILY Medical Branch isosorbide 2020-0 Yes [id number] TAKE 1 [facility] mononitrate 1-10 07 TABLET BY ity of 30 mg 24 hr 00:00: MOUTH ONCE [place] tablet 00 DAILY Medical Branch isosorbide 2020-0 Yes [id number] TAKE 1 [facility] mononitrate 1-10 07 TABLET BY ity of 30 mg 24 hr 00:00: MOUTH ONCE [place] tablet 00 DAILY Medical Branch isosorbide 2020-0 Yes [id number] TAKE 1 [facility] mononitrate 1-10 07 TABLET BY ity of 30 mg 24 hr 00:00: MOUTH ONCE [place] tablet 00 DAILY Medical Branch isosorbide 2020-0 Yes [id number] TAKE 1 [facility] mononitrate 1-10 07 TABLET BY ity of 30 mg 24 hr 00:00: MOUTH ONCE [place] tablet 00 DAILY Medical Branch isosorbide 2020-0 Yes [id number] TAKE 1 [facility] mononitrate 1-10 07 TABLET BY ity of 30 mg 24 hr 00:00: MOUTH ONCE [place] tablet 00 DAILY Medical Branch isosorbide 2020-0 Yes [id number] TAKE 1 [facility] mononitrate 1-10 07 TABLET BY ity of 30 mg 24 hr 00:00: MOUTH ONCE [place] tablet 00 DAILY Medical Branch isosorbide 2020-0 Yes [id number] TAKE 1 [facility] mononitrate 1-10 07 TABLET BY ity of 30 mg 24 hr 00:00: MOUTH ONCE [place] tablet 00 DAILY Medical Branch isosorbide 2020-0 Yes [id number] TAKE 1 [facility] mononitrate 1-10 07 TABLET BY ity of 30 mg 24 hr 00:00: MOUTH ONCE [place] tablet 00 DAILY Medical Branch isosorbide 2020-0 Yes [id number] TAKE 1 [facility] mononitrate 1-10 07 TABLET BY ity of 30 mg 24 hr 00:00: MOUTH ONCE [place] tablet 00 DAILY Medical Branch isosorbide 2020-0 Yes [id number] TAKE 1 [facility] mononitrate 1-10 07 TABLET BY ity of 30 mg 24 hr 00:00: MOUTH ONCE [place] tablet 00 DAILY Medical Branch isosorbide 2020-0 Yes [id number] TAKE 1 [facility] mononitrate 1-10 07 TABLET BY ity of 30 mg 24 hr 00:00: MOUTH ONCE [place] tablet 00 DAILY Medical Branch isosorbide 2020-0 Yes [id number] TAKE 1 [facility] mononitrate 1-10 07 TABLET BY ity of 30 mg 24 hr 00:00: MOUTH ONCE [place] tablet 00 DAILY Medical Branch isosorbide 2020-0 Yes [id number] TAKE 1 [facility] mononitrate 1-10 07 TABLET BY ity of 30 mg 24 hr 00:00: MOUTH ONCE [place] tablet 00 DAILY Medical Branch isosorbide 2020-0 Yes [id number] TAKE 1 [facility] mononitrate 1-10 07 TABLET BY ity of 30 mg 24 hr 00:00: MOUTH ONCE [place] tablet 00 DAILY Medical Branch isosorbide 2020-0 Yes [id number] TAKE 1 [facility] mononitrate 1-10 07 TABLET BY ity of 30 mg 24 hr 00:00: MOUTH ONCE [place] tablet 00 DAILY Medical Branch isosorbide 2020-0 Yes [id number] TAKE 1 [facility] mononitrate 1-10 07 TABLET BY ity of 30 mg 24 hr 00:00: MOUTH ONCE [place] tablet 00 DAILY Medical Branch isosorbide 2020-0 Yes [id number] TAKE 1 [facility] mononitrate 1-10 07 TABLET BY ity of 30 mg 24 hr 00:00: MOUTH ONCE [place] tablet 00 DAILY Medical Branch isosorbide 2020-0 2020- No [id number] TAKE 1 [facility] mononitrate 1-10 05-14 07 TABLET BY it y of 30 mg 24 hr 00:00: 00:00 MOUTH ONCE [place] tablet 00 :00 DAILY Medical Branch carvedilol 2020-0 Yes [id number] 6.25mg Take 1 [facility] 6.25 mg 1-02 07 tablet by ity of tablet 00:00: mouth 2 [place] 00 (two) Medical times Branch daily with meals. atorvastati 2020-0 Yes [id number] 80mg Take 1 [facility] n 80 mg 1-02 07 tablet by ity of tablet 00:00: mouth at [place] 00 bedtime. Medical Branch lisinopril 2020-0 Yes [id number] 10mg Take 1 [facility] 10 mg 1-02 07 tablet by ity of tablet 00:00: mouth [place] 00 daily. Medical Branch clopidogrel 2020-0 Yes [id number] 75mg Take 1 [facility] 75 mg 1-02 07 tablet by ity of tablet 00:00: mouth [place] 00 daily. Medical Branch carvedilol 2020-0 Yes [id number] 6.25mg Take 1 [facility] 6.25 mg 1-02 07 tablet by ity of tablet 00:00: mouth 2 [place] 00 (two) Medical times Branch daily with meals. atorvastati 2020-0 Yes [id number] 80mg Take 1 [facility] n 80 mg 1-02 07 tablet by ity of tablet 00:00: mouth at [place] 00 bedtime. Medical Branch lisinopril 2020-0 Yes [id number] 10mg Take 1 [facility] 10 mg 1-02 07 tablet by ity of tablet 00:00: mouth [place] 00 daily. Medical Branch clopidogrel 2020-0 Yes [id number] 75mg Take 1 [facility] 75 mg 1-02 07 tablet by ity of tablet 00:00: mouth [place] 00 daily. Medical Branch atorvastati 2020-0 Yes [id number] 80mg Take 1 [facility] n 80 mg 1-02 07 tablet by ity of tablet 00:00: mouth at [place] 00 bedtime. Medical Branch lisinopril 2020-0 Yes [id number] 10mg Take 1 [facility] 10 mg 1-02 07 tablet by ity of tablet 00:00: mouth [place] 00 daily. Medical Branch clopidogrel 2020-0 Yes [id number] 75mg Take 1 [facility] 75 mg 1-02 07 tablet by ity of tablet 00:00: mouth [place] 00 daily. Medical Branch atorvastati 2020-0 Yes [id number] 80mg Take 1 [facility] n 80 mg 1-02 07 tablet by ity of tablet 00:00: mouth at [place] 00 bedtime. Medical Branch lisinopril 2020-0 Yes [id number] 10mg Take 1 [facility] 10 mg 1-02 07 tablet by ity of tablet 00:00: mouth [place] 00 daily. Medical Branch clopidogrel 2020-0 Yes [id number] 75mg Take 1 [facility] 75 mg 1-02 07 tablet by ity of tablet 00:00: mouth [place] 00 daily. Medical Branch atorvastati 2020-0 Yes [id number] 80mg Take 1 [facility] n 80 mg 1-02 07 tablet by ity of tablet 00:00: mouth at [place] 00 bedtime. Medical Branch lisinopril 2020-0 Yes [id number] 10mg Take 1 [facility] 10 mg 1-02 07 tablet by ity of tablet 00:00: mouth [place] 00 daily. [facility] Branch clopidogrel 2020-0 Yes [id number] 75mg Take 1 [facility] 75 mg 1-02 07 tablet by ity of tablet 00:00: mouth [place] 00 daily. Medical Branch atorvastati 2020-0 Yes [id number] 80mg Take 1 [facility] n 80 mg 1-02 07 tablet by [facility]y of tablet 00:00: mouth at [place] 00 bedtime. Medical Branch lisinopril 2020-0 Yes [id number] 10mg Take 1 [facility] 10 mg 1-02 07 tablet by ity of tablet 00:00: mouth [place] 00 daily. [facility] Branch clopidogrel 2020-0 Yes [id number] 75mg Take 1 [facility] 75 mg 1-02 07 tablet by [facility]y of tablet 00:00: mouth [place] 00 daily. Medical Branch atorvastati 2020-0 Yes [id number] 80mg Take 1 [facility] n 80 mg 1-02 07 tablet by [facility]y of tablet 00:00: mouth at [place] 00 bedtime. Medical Branch lisinopril 2020-0 Yes [id number] 10mg Take 1 [facility] 10 mg 1-02 07 tablet by [facility]y of tablet 00:00: mouth [place] 00 daily. [facility] Branch clopidogrel 2020-0 Yes [id number] 75mg Take 1 [facility] 75 mg 1-02 07 tablet by [facility]y of tablet 00:00: mouth [place] 00 daily. Medical Branch atorvastati 2020-0 Yes [id number] 80mg Take 1 [facility] n 80 mg 1-02 07 tablet by [facility]y of tablet 00:00: mouth at [place] 00 bedtime. Medical Branch lisinopril 2020-0 Yes [id number] 10mg Take 1 [facility] 10 mg 1-02 07 tablet by [facility] tablet 00:00: mouth [place] 00 daily. [facility] clopidogrel 2020-0 Yes [id number] 75mg Take 1 [facility] 75 mg 1-02 07 tablet by [facility] tablet 00:00: mouth [place] 00 daily. [facility] atorvastati 2020-0 Yes [id number] 80mg Take 1 [facility] n 80 mg 1-02 07 tablet by [facility] tablet 00:00: mouth at [place] 00 bedtime. [facility] lisinopril 2020-0 Yes [id number] 10mg Take 1 [facility] 10 mg 1-02 07 tablet by [facility] tablet 00:00: mouth [place] 00 daily. [facility] clopidogrel 2020-0 Yes [id number] 75mg Take 1 [facility] 75 mg 1-02 07 tablet by [facility] tablet 00:00: mouth [place] 00 daily. [facility] atorvastati 2020-0 Yes [id number] 80mg Take 1 [facility] n 80 mg 1-02 07 tablet by [facility] tablet 00:00: mouth at [place] 00 bedtime. [facility] lisinopril 2020-0 Yes [id number] 10mg Take 1 [facility] 10 mg 1-02 07 tablet by [facility] tablet 00:00: mouth [place] 00 daily. [facility] clopidogrel 2020-0 Yes [id number] 75mg Take 1 [facility] 75 mg 1-02 07 tablet by [facility] tablet 00:00: mouth [place] 00 daily. [facility] atorvastati 2020-0 Yes [id number] 80mg Take 1 [facility] n 80 mg 1-02 07 tablet by [facility] tablet 00:00: mouth at [place] 00 bedtime. [facility] lisinopril 2020-0 Yes [id number] 10mg Take 1 [facility] 10 mg 1-02 07 tablet by [facility] tablet 00:00: mouth [place] 00 daily. [facility] clopidogrel 2020-0 Yes [id number] 75mg Take 1 [facility] 75 mg 1-02 07 tablet by [facility] tablet 00:00: mouth [place] 00 daily. [facility] atorvastati 2020-0 Yes [id number] 80mg Take 1 [facility] n 80 mg 1-02 07 tablet by [facility] tablet 00:00: mouth at [place] 00 bedtime. [facility] lisinopril 2020-0 Yes [id number] 10mg Take 1 [facility] 10 mg 1-02 07 tablet by [facility] tablet 00:00: mouth [place] 00 daily. [facility] clopidogrel 2020-0 Yes [id number] 75mg Take 1 [facility] 75 mg 1-02 07 tablet by [facility] tablet 00:00: mouth [place] 00 daily. [facility] atorvastati 2020-0 Yes [id number] 80mg Take 1 [facility] n 80 mg 1-02 07 tablet by [facility] tablet 00:00: mouth at [place] 00 bedtime. [facility] lisinopril 2020-0 Yes [id number] 10mg Take 1 [facility] 10 mg 1-02 07 tablet by [facility] tablet 00:00: mouth [place] 00 daily. [facility] clopidogrel 2020-0 Yes [id number] 75mg Take 1 [facility] 75 mg 1-02 07 tablet by [facility] tablet 00:00: mouth [place] 00 daily. [facility] atorvastati 2020-0 Yes [id number] 80mg Take 1 [facility] n 80 mg 1-02 07 tablet by [facility] tablet 00:00: mouth at [place] 00 bedtime. [facility] lisinopril 2020-0 Yes [id number] 10mg Take 1 [facility] 10 mg 1-02 07 tablet by [facility] tablet 00:00: mouth [place] 00 daily. [facility] clopidogrel 2020-0 Yes [id number] 75mg Take 1 [facility] 75 mg 1-02 07 tablet by [facility] tablet 00:00: mouth [place] 00 daily. [facility] atorvastati 2020-0 Yes [id number] 80mg Take 1 [facility] n 80 mg 1-02 07 tablet by [facility] tablet 00:00: mouth at [place] 00 bedtime. [facility] lisinopril 2020-0 Yes [id number] 10mg Take 1 [facility] 10 mg 1-02 07 tablet by [facility] tablet 00:00: mouth [place] 00 daily. [facility] clopidogrel 2020-0 Yes [id number] 75mg Take 1 [facility] 75 mg 1-02 07 tablet by [facility] tablet 00:00: mouth [place] 00 daily. [facility] atorvastati 2020-0 Yes [id number] 80mg Take 1 [facility] n 80 mg 1-02 07 tablet by [facility] tablet 00:00: mouth at [place] 00 bedtime. [facility] lisinopril 2020-0 Yes [id number] 10mg Take 1 [facility] 10 mg 1-02 07 tablet by [facility] tablet 00:00: mouth [place] 00 daily. [facility] clopidogrel 2020-0 Yes [id number] 75mg Take 1 [facility] 75 mg 1-02 07 tablet by [facility] tablet 00:00: mouth [place] 00 daily. [facility] atorvastati 2020-0 Yes [id number] 80mg Take 1 [facility] n 80 mg 1-02 07 tablet by [facility] tablet 00:00: mouth at [place] 00 bedtime. [facility] lisinopril 2020-0 Yes [id number] 10mg Take 1 [facility] 10 mg 1-02 07 tablet by [facility] tablet 00:00: mouth [place] 00 daily. [facility] clopidogrel 2020-0 Yes [id number] 75mg Take 1 [facility] 75 mg 1-02 07 tablet by [facility] tablet 00:00: mouth [place] 00 daily. [facility] atorvastati 2020-0 Yes [id number] 80mg Take 1 [facility] n 80 mg 1-02 07 tablet by [facility] tablet 00:00: mouth at [place] 00 bedtime. [facility] lisinopril 2020-0 Yes [id number] 10mg Take 1 [facility] 10 mg 1-02 07 tablet by [facility] tablet 00:00: mouth [place] 00 daily. [facility] clopidogrel 2020-0 Yes [id number] 75mg Take 1 [facility] 75 mg 1-02 07 tablet by [facility] tablet 00:00: mouth [place] 00 daily. [facility] atorvastati 2020-0 Yes [id number] 80mg Take 1 [facility] n 80 mg 1-02 07 tablet by [facility] tablet 00:00: mouth at [place] 00 bedtime. [facility] lisinopril 2020-0 Yes [id number] 10mg Take 1 [facility] 10 mg 1-02 07 tablet by [facility] tablet 00:00: mouth [place] 00 daily. [facility] clopidogrel 2020-0 Yes [id number] 75mg Take 1 [facility] 75 mg 1-02 07 tablet by [facility] tablet 00:00: mouth [place] 00 daily. [facility] atorvastati 2020-0 Yes [id number] 80mg Take 1 [facility] n 80 mg 1-02 07 tablet by [facility] tablet 00:00: mouth at [place] 00 bedtime. [facility] lisinopril 2020-0 Yes [id number] 10mg Take 1 [facility] 10 mg 1-02 07 tablet by [facility] tablet 00:00: mouth [place] 00 daily. [facility] clopidogrel 2020-0 Yes [id number] 75mg Take 1 [facility] 75 mg 1-02 07 tablet by [facility] tablet 00:00: mouth [place] 00 daily. [facility] carvedilol 2020-0 Yes [id number] 6.25mg Take 1 [facility] 6.25 mg 1-02 07 tablet by [facility] tablet 00:00: mouth 2 [place] 00 (two) Medical times [facility] daily with meals. atorvastati 2020-0 Yes [id number] 80mg Take 1 [facility] n 80 mg 1-02 07 tablet by [facility] tablet 00:00: mouth at [place] 00 bedtime. [facility] atorvastati 2020-0 Yes [id number] 80mg Take 1 [facility] n 80 mg 1-02 07 tablet by [facility] tablet 00:00: mouth at [place] 00 bedtime. [facility] lisinopril 2020-0 Yes [id number] 10mg Take 1 [facility] 10 mg 1-02 07 tablet by [facility] tablet 00:00: mouth [place] 00 daily. [facility] clopidogrel 2020-0 Yes [id number] 75mg Take 1 [facility] 75 mg 1-02 07 tablet by [facility] tablet 00:00: mouth [place] 00 daily. [facility] lisinopril 2020-0 Yes [id number] 10mg Take 1 [facility] 10 mg 1-02 07 tablet by [facility] tablet 00:00: mouth [place] 00 daily. [facility] clopidogrel 2020-0 Yes [id number] 75mg Take 1 [facility] 75 mg 1-02 07 tablet by [facility] tablet 00:00: mouth [place] 00 daily. [facility] atorvastati 2020-0 Yes [id number] 80mg Take 1 [facility] n 80 mg 1-02 07 tablet by [facility] tablet 00:00: mouth at [place] 00 bedtime. [facility] lisinopril 2020-0 Yes [id number] 10mg Take 1 [facility] 10 mg 1-02 07 tablet by [facility] tablet 00:00: mouth [place] 00 daily. [facility] clopidogrel 2020-0 Yes [id number] 75mg Take 1 [facility] 75 mg 1-02 07 tablet by [facility] tablet 00:00: mouth [place] 00 daily. [facility] atorvastati 2020-0 Yes [id number] 80mg Take 1 [facility] n 80 mg 1-02 07 tablet by [facility] tablet 00:00: mouth at [place] 00 bedtime. [facility] lisinopril 2020-0 Yes [id number] 10mg Take 1 [facility] 10 mg 1-02 07 tablet by [facility] tablet 00:00: mouth [place] 00 daily. [facility] clopidogrel 2020-0 Yes [id number] 75mg Take 1 [facility] 75 mg 1-02 07 tablet by [facility] tablet 00:00: mouth [place] 00 daily. [facility] atorvastati 2020-0 Yes [id number] 80mg Take 1 [facility] n 80 mg 1-02 07 tablet by [facility] tablet 00:00: mouth at [place] 00 bedtime. [facility] lisinopril 2020-0 Yes [id number] 10mg Take 1 [facility] 10 mg 1-02 07 tablet by [facility] tablet 00:00: mouth [place] 00 daily. [facility] clopidogrel 2020-0 Yes [id number] 75mg Take 1 [facility] 75 mg 1-02 07 tablet by [facility] tablet 00:00: mouth [place] 00 daily. [facility] atorvastati 2020-0 Yes [id number] 80mg Take 1 [facility] n 80 mg 1-02 07 tablet by [facility] tablet 00:00: mouth at [place] 00 bedtime. [facility] lisinopril 2020-0 Yes [id number] 10mg Take 1 [facility] 10 mg 1-02 07 tablet by [facility] tablet 00:00: mouth [place] 00 daily. [facility] clopidogrel 2020-0 Yes [id number] 75mg Take 1 [facility] 75 mg 1-02 07 tablet by [facility] tablet 00:00: mouth [place] 00 daily. [facility] atorvastati 2020-0 Yes [id number] 80mg Take 1 [facility] n 80 mg 1-02 07 tablet by [facility] tablet 00:00: mouth at [place] 00 bedtime. [facility] lisinopril 2020-0 Yes [id number] 10mg Take 1 [facility] 10 mg 1-02 07 tablet by [facility] tablet 00:00: mouth [place] 00 daily. [facility] clopidogrel 2020-0 Yes [id number] 75mg Take 1 [facility] 75 mg 1-02 07 tablet by [facility] tablet 00:00: mouth [place] 00 daily. [facility] atorvastati 2020-0 Yes [id number] 80mg Take 1 [facility] n 80 mg 1-02 07 tablet by [facility] tablet 00:00: mouth at [place] 00 bedtime. [facility] lisinopril 2020-0 Yes [id number] 10mg Take 1 [facility] 10 mg 1-02 07 tablet by [facility] tablet 00:00: mouth [place] 00 daily. [facility] clopidogrel 2020-0 Yes [id number] 75mg Take 1 [facility] 75 mg 1-02 07 tablet by [facility] tablet 00:00: mouth [place] 00 daily. [facility] atorvastati 2020-0 Yes [id number] 80mg Take 1 [facility] n 80 mg 1-02 07 tablet by [facility] tablet 00:00: mouth at [place] 00 bedtime. [facility] lisinopril 2020-0 Yes [id number] 10mg Take 1 [facility] 10 mg 1-02 07 tablet by [facility] tablet 00:00: mouth [place] 00 daily. [facility] clopidogrel 2020-0 Yes [id number] 75mg Take 1 [facility] 75 mg 1-02 07 tablet by [facility] tablet 00:00: mouth [place] 00 daily. [facility] atorvastati 2020-0 Yes [id number] 80mg Take 1 [facility] n 80 mg 1-02 07 tablet by [facility] tablet 00:00: mouth at [place] 00 bedtime. [facility] lisinopril 2020-0 Yes [id number] 10mg Take 1 [facility] 10 mg 1-02 07 tablet by [facility] tablet 00:00: mouth [place] 00 daily. [facility] clopidogrel 2020-0 Yes [id number] 75mg Take 1 [facility] 75 mg 1-02 07 tablet by [facility] tablet 00:00: mouth [place] 00 daily. [facility] atorvastati 2020-0 Yes [id number] 80mg Take 1 [facility] n 80 mg 1-02 07 tablet by [facility] tablet 00:00: mouth at [place] 00 bedtime. [facility] lisinopril 2020-0 Yes [id number] 10mg Take 1 [facility] 10 mg 1-02 07 tablet by [facility] tablet 00:00: mouth [place] 00 daily. [facility] clopidogrel 2020-0 Yes [id number] 75mg Take 1 [facility] 75 mg 1-02 07 tablet by [facility] tablet 00:00: mouth [place] 00 daily. [facility] carvedilol 2020-0 Yes [id number] 6.25mg Take 1 [facility] 6.25 mg 1-02 07 tablet by [facility] tablet 00:00: mouth 2 [place] 00 (two) Medical times [facility] daily with meals. atorvastati 2020-0 Yes [id number] 80mg Take 1 [facility] n 80 mg 1-02 07 tablet by [facility] tablet 00:00: mouth at [place] 00 bedtime. [facility] lisinopril 2020-0 Yes [id number] 10mg Take 1 [facility] 10 mg 1-02 07 tablet by [facility] tablet 00:00: mouth [place] 00 daily. [facility] clopidogrel 2020-0 Yes [id number] 75mg Take 1 [facility] 75 mg 1-02 07 tablet by [facility] tablet 00:00: mouth [place] 00 daily. [facility] atorvastati 2020-0 Yes [id number] 80mg Take 1 [facility] n 80 mg 1-02 07 tablet by [facility] tablet 00:00: mouth at [place] 00 bedtime. [facility] lisinopril 2020-0 Yes [id number] 10mg Take 1 [facility] 10 mg 1-02 07 tablet by [facility] tablet 00:00: mouth [place] 00 daily. [facility] atorvastati 2020-0 Yes [id number] 80mg Take 1 [facility] n 80 mg 1-02 07 tablet by [facility] tablet 00:00: mouth at [place] 00 bedtime. [facility] lisinopril 2020-0 Yes [id number] 10mg Take 1 [facility] 10 mg 1-02 07 tablet by [facility] tablet 00:00: mouth [place] 00 daily. [facility] clopidogrel 2020-0 Yes [id number] 75mg Take 1 [facility] 75 mg 1-02 07 tablet by [facility] tablet 00:00: mouth [place] 00 daily. [facility] clopidogrel 2020-0 Yes [id number] 75mg Take 1 [facility] 75 mg 1-02 07 tablet by [facility] tablet 00:00: mouth [place] 00 daily. [facility] atorvastati 2020-0 Yes [id number] 80mg Take 1 [facility] n 80 mg 1-02 07 tablet by [facility] tablet 00:00: mouth at [place] 00 bedtime. [facility] lisinopril 2020-0 Yes [id number] 10mg Take 1 [facility] 10 mg 1-02 07 tablet by [facility] tablet 00:00: mouth [place] 00 daily. [facility] clopidogrel 2020-0 Yes [id number] 75mg Take 1 [facility] 75 mg 1-02 07 tablet by [facility] tablet 00:00: mouth [place] 00 daily. [facility] atorvastati 2020-0 Yes [id number] 80mg Take 1 [facility] n 80 mg 1-02 07 tablet by [facility] tablet 00:00: mouth at [place] 00 bedtime. [facility] lisinopril 2020-0 Yes [id number] 10mg Take 1 [facility] 10 mg 1-02 07 tablet by [facility] tablet 00:00: mouth [place] 00 daily. [facility] clopidogrel 2020-0 Yes [id number] 75mg Take 1 [facility] 75 mg 1-02 07 tablet by [facility] tablet 00:00: mouth [place] 00 daily. [facility] atorvastati 2020-0 Yes [id number] 80mg Take 1 [facility] n 80 mg 1-02 07 tablet by [facility] tablet 00:00: mouth at [place] 00 bedtime. [facility] lisinopril 2020-0 Yes [id number] 10mg Take 1 [facility] 10 mg 1-02 07 tablet by [facility] tablet 00:00: mouth [place] 00 daily. [facility] clopidogrel 2020-0 Yes [id number] 75mg Take 1 [facility] 75 mg 1-02 07 tablet by [facility] tablet 00:00: mouth [place] 00 daily. [facility] atorvastati 2020-0 Yes [id number] 80mg Take 1 [facility] n 80 mg 1-02 07 tablet by [facility] tablet 00:00: mouth at [place] 00 bedtime. [facility] lisinopril 2020-0 Yes [id number] 10mg Take 1 [facility] 10 mg 1-02 07 tablet by [facility] tablet 00:00: mouth [place] 00 daily. [facility] clopidogrel 2020-0 Yes [id number] 75mg Take 1 [facility] 75 mg 1-02 07 tablet by [facility] tablet 00:00: mouth [place] 00 daily. [facility] atorvastati 2020-0 Yes [id number] 80mg Take 1 [facility] n 80 mg 1-02 07 tablet by [facility] tablet 00:00: mouth at [place] 00 bedtime. [facility] lisinopril 2020-0 Yes [id number] 10mg Take 1 [facility] 10 mg 1-02 07 tablet by [facility] tablet 00:00: mouth [place] 00 daily. [facility] clopidogrel 2020-0 Yes [id number] 75mg Take 1 [facility] 75 mg 1-02 07 tablet by [facility] tablet 00:00: mouth [place] 00 daily. [facility] atorvastati 2020-0 Yes [id number] 80mg Take 1 [facility] n 80 mg 1-02 07 tablet by [facility] tablet 00:00: mouth at [place] 00 bedtime. [facility] lisinopril 2020-0 Yes [id number] 10mg Take 1 [facility] 10 mg 1-02 07 tablet by [facility] tablet 00:00: mouth [place] 00 daily. [facility] clopidogrel 2020-0 Yes [id number] 75mg Take 1 [facility] 75 mg 1-02 07 tablet by [facility] tablet 00:00: mouth [place] 00 daily. [facility] carvedilol 2020-0 Yes [id number] 6.25mg Take 1 [facility] 6.25 mg 1-02 07 tablet by [facility] tablet 00:00: mouth 2 [place] 00 (two) Medical times [facility] daily with meals. atorvastati 2020-0 Yes [id number] 80mg Take 1 [facility] n 80 mg 1-02 07 tablet by [facility] tablet 00:00: mouth at [place] 00 bedtime. [facility] atorvastati 2020-0 Yes [id number] 80mg Take 1 [facility] n 80 mg 1-02 07 tablet by [facility] tablet 00:00: mouth at [place] 00 bedtime. [facility] lisinopril 2020-0 Yes [id number] 10mg Take 1 [facility] 10 mg 1-02 07 tablet by [facility] tablet 00:00: mouth [place] 00 daily. [facility] clopidogrel 2020-0 Yes [id number] 75mg Take 1 [facility] 75 mg 1-02 07 tablet by [facility] tablet 00:00: mouth [place] 00 daily. [facility] lisinopril 2020-0 Yes [id number] 10mg Take 1 [facility] 10 mg 1-02 07 tablet by [facility] tablet 00:00: mouth [place] 00 daily. [facility] clopidogrel 2020-0 Yes [id number] 75mg Take 1 [facility] 75 mg 1-02 07 tablet by [facility] of tablet 00:00: mouth [place] 00 daily. [facility] atorvastati 2020-0 Yes [id number] 80mg Take 1 [facility] n 80 mg 1-02 07 tablet by [facility] of tablet 00:00: mouth at [place] 00 bedtime. [facility] lisinopril 2020-0 Yes [id number] 10mg Take 1 [facility] 10 mg 1-02 07 tablet by [facility] tablet 00:00: mouth [place] 00 daily. [facility] clopidogrel 2020-0 Yes [id number] 75mg Take 1 [facility] 75 mg 1-02 07 tablet by [facility] tablet 00:00: mouth [place] 00 daily. [facility] atorvastati 2020-0 Yes [id number] 80mg Take 1 [facility] n 80 mg 1-02 07 tablet by [facility] tablet 00:00: mouth at [place] 00 bedtime. [facility] lisinopril 2020-0 Yes [id number] 10mg Take 1 [facility] 10 mg 1-02 07 tablet by [facility] of tablet 00:00: mouth [place] 00 daily. [facility] clopidogrel 2020-0 Yes [id number] 75mg Take 1 [facility] 75 mg 1-02 07 tablet by [facility] of tablet 00:00: mouth [place] 00 daily. [facility] atorvastati 2020-0 Yes [id number] 80mg Take 1 [facility] n 80 mg 1-02 07 tablet by [facility] of tablet 00:00: mouth at [place] 00 bedtime. [facility] lisinopril 2020-0 Yes [id number] 10mg Take 1 [facility] 10 mg 1-02 07 tablet by [facility] of tablet 00:00: mouth [place] 00 daily. [facility] clopidogrel 2020-0 Yes [id number] 75mg Take 1 [facility] 75 mg 1-02 07 tablet by [facility] of tablet 00:00: mouth [place] 00 daily. [facility] atorvastati 2020-0 Yes [id number] 80mg Take 1 [facility] n 80 mg 1-02 07 tablet by [facility] of tablet 00:00: mouth at [place] 00 bedtime. [facility] lisinopril 2020-0 Yes [id number] 10mg Take 1 [facility] 10 mg 1-02 07 tablet by [facility] of tablet 00:00: mouth [place] 00 daily. [facility] clopidogrel 2020-0 Yes [id number] 75mg Take 1 [facility] 75 mg 1-02 07 tablet by [facility] of tablet 00:00: mouth [place] 00 daily. [facility] atorvastati 2020-0 Yes [id number] 80mg Take 1 [facility] n 80 mg 1-02 07 tablet by [facility] of tablet 00:00: mouth at [place] 00 bedtime. [facility] lisinopril 2020-0 Yes [id number] 10mg Take 1 [facility] 10 mg 1-02 07 tablet by [facility] of tablet 00:00: mouth [place] 00 daily. [facility] clopidogrel 2020-0 Yes [id number] 75mg Take 1 [facility] 75 mg 1-02 07 tablet by [facility] of tablet 00:00: mouth [place] 00 daily. [facility] atorvastati 2020-0 Yes [id number] 80mg Take 1 [facility] n 80 mg 1-02 07 tablet by [facility] of tablet 00:00: mouth at [place] 00 bedtime. [facility] lisinopril 2020-0 Yes [id number] 10mg Take 1 [facility] 10 mg 1-02 07 tablet by [facility] of tablet 00:00: mouth [place] 00 daily. [facility] clopidogrel 2020-0 Yes [id number] 75mg Take 1 [facility] 75 mg 1-02 07 tablet by [facility] of tablet 00:00: mouth [place] 00 daily. [facility] carvedilol 2020-0 Yes [id number] 6.25mg Take 1 [facility] 6.25 mg 1-02 07 tablet by [facility] tablet 00:00: mouth 2 [place] 00 (two) Medical times [facility] daily with meals. atorvastati 2020-0 Yes [id number] 80mg Take 1 [facility] n 80 mg 1-02 07 tablet by [facility] of tablet 00:00: mouth at [place] 00 bedtime. [facility] lisinopril 2020-0 Yes [id number] 10mg Take 1 [facility] 10 mg 1-02 07 tablet by [facility] of tablet 00:00: mouth [place] 00 daily. [facility] clopidogrel 2020-0 Yes [id number] 75mg Take 1 [facility] 75 mg 1-02 07 tablet by [facility] of tablet 00:00: mouth [place] 00 daily. [facility] atorvastati 2020-0 Yes [id number] 80mg Take 1 [facility] n 80 mg 1-02 07 tablet by [facility] of tablet 00:00: mouth at [place] 00 bedtime. [facility] lisinopril 2020-0 Yes [id number] 10mg Take 1 [facility] 10 mg 1-02 07 tablet by [facility] of tablet 00:00: mouth [place] 00 daily. [facility] atorvastati 2020-0 Yes [id number] 80mg Take 1 [facility] n 80 mg 1-02 tablet by [facility] of tablet 00:00: mouth at [place] 00 bedtime. [facility] clopidogrel 2020-0 Yes [id number] 75mg Take 1 [facility] 75 mg 1-02 tablet by [facility] of tablet 00:00: mouth [place] 00 daily. [facility] clopidogrel 2020-0 Yes [id number] 75mg Take 1 [facility] 75 mg 1-02 07 tablet by [facility] of tablet 00:00: mouth [place] 00 daily. [facility] atorvastati 2020-0 Yes [id number] 80mg Take 1 [facility] n 80 mg -02 tablet by [facility] of tablet 00:00: mouth at [place] 00 bedtime. [facility] lisinopril 2019- No [id number] 10mg Take 1 [facility] 10 mg -07 16-08 tablet by [facility] tablet 00:00: 00:00 mouth [place] 00 :00 daily. [facility] clopidogrel 2019- No [id number] 75mg Take 1 [facility] 75 mg 06-10-08 tablet by [facility] of tablet 00:00: 00:00 mouth [place] 00 :00 daily. [facility] atorvastati 2019- No [id number] 80mg Take 1 [facility] n 80 mg 06-10-08 tablet by [facility] of tablet 00:00: 00:00 mouth at [place] 00 :00 bedtime. [facility] carvedilol 2019- No [id number] 6.25mg Take 1 [facility] 6.25 mg 06-10 07 tablet by [facility] of tablet 00:00: 00:00 mouth 2 [place] 00 :00 (two) Medical times [facility] daily with meals. carvedilol 2019- No [id number] 6.25mg Take 1 [facility] 6.25 mg 06-10 07 tablet by [facility] of tablet 00:00: 00:00 mouth 2 [place] 00 :00 (two) Medical times [facility] daily with meals. atorvastati Yes [id number] 80mg Take 1 [facility] n 80 mg 6-21 tablet by [facility] of tablet 00:00: mouth at [place] 00 bedtime. [facility] atorvastati Yes [id number] 80mg Take 1 [facility] n 80 mg 6-21 tablet by [facility] of tablet 00:00: mouth at [place] 00 bedtime. [facility] isosorbide Yes [id number] TAKE 1 [facility] mononitrate 5-23 07 TABLET BY [facility] of 30 mg 24 hr 00:00: MOUTH ONCE [place] tablet 00 DAILY [facility] lisinopril Yes [id number] 10mg Take 1 [facility] n[facility] 10 mg 5-23 tablet by [facility] of tablet 00:00: mouth [place] 00 daily. [facility] isosorbide Yes [id number] TAKE 1 [facility] mononitrate 5-23 07 TABLET BY it[facility] of 30 mg 24 hr 00:00: MOUTH ONCE [place] tablet 00 DAILY [facility] lisinopril Yes [id number] 10mg Take 1 U nivers 10 mg 5-23 tablet by it[facility] of tablet 00:00: mouth [place] 00 daily. [facility] nitroglycer Yes [id number] .4mg Place 0.4 [facility] in 0.4 mg 8-15 mg under ity of sublingual 20:47: the tongue [place] tablet 37 every 5 Medical (five) Branch minutes as needed for Chest pain. Not to exceed 3 doses nitroglycer Yes [id number] .4mg Place 0.4 [facility] in 0.4 mg 8-15 mg under ity of sublingual 20:47: the tongue [place] tablet 37 every 5 Medical (five) Branch minutes as needed for Chest pain. Not to exceed 3 doses aspirin 81 Yes [id number] 81mg Take 81 mg [facility] mg EC 8-15 by mouth ity of tablet 20:33: daily. [address] ibuprofen Yes [id number] 600mg Take 600 [facility] 600 mg 8-15 mg by ity of tablet 20:33: mouth [place] 26 every 6 Medical (six) Branch hours as needed. aspirin 81 Yes [id number] 81mg Take 81 mg [facility] mg EC 8-15 by mouth ity of tablet 20:33: daily. [address] ibuprofen Yes [id number] 600mg Take 600 [facility] 600 mg 8-15 mg by ity of tablet 20:33: mouth [place] 26 every 6 Medical (six) Branch hours as needed. Vital Signs Vital Name Observation Time Observation Value Comments Source Systolic blood 2019-11-05 18:15:00 106 mm[Hg] [facility] sity of pressure [facility] Diastolic blood 2019-11-05 18:15:00 69 mm[Hg] Unive rsity of [facility] Heart rate 2019-11-05 18:15:00 87 /min [facility] Respiratory rate 2019-11-05 18:15:00 19 /min [facility] height 2019-11-05 18:15:00 185.4 cm [facility] Body weight 2019-11-05 18:15:00 89.948 kg [facility] BMI 2019-11-05 18:15:00 26.16 kg/m2 [facility] ty of [place] [facility] Oxygen saturation in 2019-11-05 18:15:00 96 /min [facility] of Arterial blood by [facility] Pulse oximetry Branch Systolic blood 2019-08-24 15:10:00 108 mm[Hg] Univer sity of pressure [place] [facility] Diastolic blood 2019-08-24 15:10:00 7 mm[Hg] Unive rsity of pressure [place] [facility] Heart rate 2019-08-24 15:10:00 86 /min [facility] [place] [facility] Respiratory rate 2019-08-24 15:10:00 19 /min [facility] ersity of [place] [facility] Body height 2019-08-24 15:10:00 185.4 cm [facility] [place] [facility] Body weight 2019-08-24 15:10:00 85.957 kg [facility] [place] [facility] BMI 2019-08-24 15:10:00 25.00 kg/m2 [facility] [place] [facility] Oxygen saturation in 2019-08-24 15:10:00 98 /min [facility] of Arterial blood by [facility] Pulse oximetry Branch Systolic blood 2019-08-19 13:54:00 94 mm[Hg] Univer sity of pressure [place] [facility] Diastolic blood 2019-08-19 13:54:00 63 mm[Hg] Unive rsity of pressure [place] [facility] Heart rate 2019-08-19 13:54:00 73 /min [facility] [place] [facility] Body temperature 2019-08-19 13:54:00 36.11 Mely [facility] ersity of [place] [facility] Respiratory rate 2019-08-19 13:54:00 20 /min [facility] ersity of [place] [facility] Body height 2019-08-19 13:54:00 185.4 cm [facility] [place] [facility] Body weight 2019-08-19 13:54:00 86.637 kg [facility] [place] [facility] BMI 2019-08-19 13:54:00 25.20 kg/m2 [facility] [place] [facility] Systolic blood 2019-08-10 15:02:00 111 mm[Hg] Un[facility] sity of pressure [place] [facility] Diastolic blood 2019-08-10 15:02:00 70 mm[Hg] Unive rsity of pressure [place] [facility] Heart rate 2019-08-10 15:02:00 83 /min [facility] [place] [facility] Body temperature 2019-08-10 15:02:00 36.22 Mely [facility] ers[facility] [place] [facility] Respiratory rate 2019-08-10 15:02:00 20 /min Univ ersity of [facility] Body height 2019-08-10 15:02:00 185.4 cm [facility] Body weight 2019-08-10 15:02:00 86.002 kg [facility] BMI 2019-08-10 15:02:00 25.01 kg/m2 [facility] Systolic blood 2019-08-09 00:00:00 113 mm[Hg] Univer sity of pressure [facility] Diastolic blood 2019-08-09 00:00:00 79 mm[Hg] Unive rsity of pressure [facility] Heart rate 2019-08-09 00:00:00 61 /min [facility] Respiratory rate 2019-08-09 00:00:00 15 /min [facility] Oxygen saturation in 2019-08-09 00:00:00 97 /min University of Arterial blood by [employer] Pulse oximetry Branch Body temperature 2019-08-08 20:20:00 37 Mely [facility] Body height 2019-08-08 20:20:00 185.4 cm [facility] Body weight 2019-08-08 20:20:00 86.183 kg [facility] BMI 2019-08-08 20:20:00 25.07 kg/m2 [facility] Systolic blood 2019-08-04 19:55:00 126 mm[Hg] Standing Univer sity of pressure [facility] Diastolic blood 2019-08-04 19:55:00 88 mm[Hg] Standing Unive rsity of pressure [facility] Heart rate 2019-08-04 19:55:00 174 /min [facility] Respiratory rate 2019-08-04 19:50:00 25 /min [facility] Oxygen saturation in 2019-08-04 19:50:00 98 /min University of Arterial blood by Bettymovil jeremiah Pulse oximetry Branch Body height 2019-08-04 14:31:30 185.4 cm [facility] Body weight 2019-08-04 14:31:30 86.183 kg [facility] BMI 2019-08-04 14:31:30 25.07 kg/m2 [facility] Systolic blood 2019-07-29 20:21:00 106 mm[Hg] Univer sity of [facility] Diastolic blood 2019-07-29 20:21:00 73 mm[Hg] Unive rsity of [facility] Heart rate 2019-07-29 20:21:00 87 /min [facility] Respiratory rate 2019-07-29 20:21:00 19 /min Univ [facility] Body height 2019-07-29 20:21:00 185.4 cm [facility] Body weight 2019-07-29 20:21:00 84.959 kg [facility] BMI 2019-07-29 20:21:00 24.71 kg/m2 Universi ty of [facility] Oxygen saturation in 2019-07-29 20:21:00 98 /min University of Arterial blood by [facility] Pulse oximetry Branch Systolic blood 2019-07-22 14:38:00 100 mm[Hg] Univer sity of [facility] Diastolic blood 2019-07-22 14:38:00 64 mm[Hg] Unive rsity of pressure [facility] Heart rate 2019-07-22 14:38:00 80 /min Universi ty of [facility] Body temperature 2019-07-22 14:38:00 36.11 Mely Univ ersity of [facility] Respiratory rate 2019-07-22 14:38:00 18 /min Univ ersity of [facility] Body height 2019-07-22 14:38:00 185.4 cm Universi ty of [facility] Body weight 2019-07-22 14:38:00 86.002 kg [facility] BMI 2019-07-22 14:38:00 25.01 kg/m2 [facility] Systolic blood 2019-07-20 22:23:13 107 mm[Hg] Univer sity of [facility] Diastolic blood 2019-07-20 22:23:13 79 mm[Hg] Unive rsity of pressure [facility] Heart rate 2019-07-20 22:23:13 79 /min [facility] Respiratory rate 2019-07-20 22:23:13 18 /min Univ [facility] [place] [facility] Oxygen saturation in 2019-07-20 22:23:13 98 /min University of Arterial blood by [facility] jeremiah Pulse oximetry Branch Body temperature 2019-07-20 20:35:00 36.83 Mely [facility] [place] [facility] Body height 2019-07-20 20:35:00 185.4 cm [facility] Body weight 2019-07-20 20:35:00 83.915 kg [facility] [place] [facility] BMI 2019-07-20 20:35:00 24.41 kg/m2 [facility] [place] [facility] Systolic blood 2019-07-09 16:22:00 113 mm[Hg] Univer sity of pressure [facility] Diastolic blood 2019-07-09 16:22:00 82 mm[Hg] Unive rsity of pressure [facility] Heart rate 2019-07-09 16:22:00 77 /min [facility] [place] [facility] Respiratory rate 2019-07-09 16:22:00 19 /min [facility] [place] [facility] [place] Body height 2019-07-09 16:22:00 185.4 cm [facility] [place] [facility] Body weight 2019-07-09 16:22:00 85.14 kg [facility] [place] [facility] BMI 2019-07-09 16:22:00 24.76 kg/m2 [facility] [place] [facility] Oxygen saturation in 2019-07-09 16:22:00 99 /min University of Arterial blood by [facility] Pulse oximetry Branch Systolic blood 2019-06-24 14:36:00 105 mm[Hg] Univer sity of pressure [facility] [place] [facility] Diastolic blood 2019-06-24 14:36:00 69 mm[Hg] Unive rsity of pressure [facility] Heart rate 2019-06-24 14:36:00 87 /min [facility] [place] [facility] Body temperature 2019-06-24 14:36:00 36.11 Mely [facility] [place] [facility] Respiratory rate 2019-06-24 14:36:00 20 /min [facility] [place] [facility] Body height 2019-06-24 14:36:00 182.9 cm [facility] [place] [facility] Body weight 2019-06-24 14:36:00 86.002 kg [facility] [place] [facility] BMI 2019-06-24 14:36:00 25.71 kg/m2 [facility] Oxygen saturation in 2019-06-24 14:36:00 98 /min University Arterial blood by [facility] Pulse oximetry Branch Procedures Procedure Date / Time Performing Clinician Source Performed PHYSICIAN CERTIFICATION 2019-09-29 05:01:00 Doctor Unassigned, U [facility] STATEMENT [facility] [place] EXTERNAL PROVIDER - ADC 2019-08-17 05:01:00 Doctor Unassigned, U [facility] CARDIOLOGY [facility] [place] TROPONIN I 2019-08-08 23:02:00 Félix [facility] XR CHEST 2 VW 2019-08-08 21:02:52 Félix [facility] MAGNESIUM 2019-08-08 20:46:00 Félix [facility] TROPONIN I 2019-08-08 20:46:00 Félix [facility] COMP. METABOLIC PANEL 2019-08-08 20:46:00 Félix, K [facility] ([id number]) [facility] CBC WITH DIFFERENTIAL 2019-08-08 20:46:00 Sarah Naranjo [facility] EKG-12 LEAD 2019-08-08 20:43:16 [facility] POCT ACT LOW RANGE 2019-08-04 16:02:00 Cleena Odell [facility] BASIC METABOLIC PANEL 2019-07-20 21:42:00 Bettina Whiteside [facility] (NA, K, CL, CO2, GLUCOSE, Medica l Branch BUN, CREATININE, CA) CBC WITH DIFFERENTIAL 2019-07-20 21:42:00 Bettina Whiteside [facility] CT HEAD WO CONTRAST 2019-07-20 21:23:58 Bettina Whiteside [facility] CONSENT/REFUSAL FOR 2019-07-20 20:26:11 Doctor Jacky, [facility] DIAGNOSIS AND TREATMENT [facility] [place] EXTERNAL PROVIDER RECORDS 2019-07-07 06:01:00 Doctor Jacky, [facility] [place] SCANNED LAB RESULTS 2019-06-17 06:01:00 Doctor Jacky, [facility] AGREEMENTS AUTHORIZATIONS 2019-06-10 06:01:00 Doctor Unassigned, [facility] AND IRREVOCABLE [facility] ASSIGNMENTS (FORM 2001) Encounters Start End Encounter Admission Attending Care Care Encounter Source Date/Time Date/Time Type Type Clinicians Facility Department ID 2020-03-17 2020-03-17 Telephone Mariana Connolly HARRY 1.2.840.114 [id number] Univers 00:00:00 00:00:00 [facility] [id number] [place] [id number] [facility] 362 Branch 2020-03-16 2020-03-16 Refsukhdev Jean [facility] 1.2.840.114 [id number] Univers 00:00:00 00:00:00 Sendil Dameon Thompson 350.1.13.10 ity [facility] [place] [phone] Nd dical [facility] 059 [facility] 2020-03-16 2020-03-16 Refill Mariana Connolly [facility] 1.2.840.114 [id number] Univers 00:00:00 00:00:00 Y HEALTH 350.1.13.10 i ty of [facility] [place].7.2.[place] [id number] [facility] 188 Branch 2020-02-22 2020-02-22 Outpatient R MIRANDA [facility] [id number] Univers 15:30:00 15:30:00 SENDIL [id number] ity [facility] 2020-02-22 2020-02-22 Outpatient R MIRANAD [facility] [id number] Univers 15:30:00 15:30:00 SENDIL ity [facility] 2020-02-15 2020-02-15 RefMariana Presley [facility] 1.2.840.114 [id number] Univers 00:00:00 00:00:00 Health at 350.1.13.10 ity [place] [id number] [facility] [address] [place] 2020-02-15 2020-02-15 Iraida Jean [facility] 1.2.840.114 [id number] Univers 00:00:00 00:00:00 Sendkj Thompson 350.1.13.10 ity of [place] [phone] [address] 2020-01-27 2020-01-27 Outpatient MIRANDA [facility] [id number] Univers 09:30:00 09:30:00 SENDIL ity [facility] 2020-01-09 2020-01-09 Refill Mariana Connolly [facility] 1.2.840.114 [id number] Univers 00:00:00 00:00:00 Health at 350.1.13.10 ity of [place].2.[place] [phone] [address] 2020-01-09 2020-01-09 [facility] 1.2.840.114 [id number] Univers 00:00:00 00:00:00 Soni Thompson 350.1.13.10 ity of [place] [phone] [address] 2019-12-24 2019-12-24 Outpatient MIRANDATHE [facility] [id number] Univers 14:30:00 14:30:00 SENDIL [id number] ity [facility] 2019-12-15 2019-12-15 Refill Mariana Connolly 1.2.840.114 [id number] Univers 00:00:00 00:00:00 [facility] 350.1.13.10 it y [place] [phone] [address] 2019-12-15 2019-12-15 Refill Mariana Connolly 1.2.840.114 [id number] Univers 00:00:00 00:00:00 [facility] 350.1.13.10 it [place] [phone] [address] 2019-12-15 2019-12-15 Refill Mariana Connolly 1.2.840.114 [id number] Univers 00:00:00 00:00:00 [facility] 350.1.13.10 it y [place] [phone] [address] 2019-12-10 2019-12-10 Outpatient [facility] [id number] Univers 13:00:00 13:00:00 ity [facility] 2019-11-08 2019-11-08 [facility] [id number] Univers 10:30:00 10:30:00 SENDIL ity [facility] 2019-11-05 2019-11-05 Office [facility] 1.2.840.114 [id number] Univers 12:55:50 13:25:50 Visit Soni Thompson 350.1.13.10 ity of [place] [phone] [address] 2019-11-05 2019-11-05 Outpatient JEANTHE [facility] [id number] -[id number] Univers 13:00:00 13:00:00 SENDIL [id number] ity [facility] 2019-11-05 2019-11-05 Outpatient R JEANTHE [facility] [id number] Univers 13:00:00 13:00:00 SENDIL ity [facility] 2019-10-25 2019-10-25 [employer], [facility] Vascular Room [address] [place] [address] 1.2.840.114 [id number] Univers 13:01:55 14:01:55 Visit Noelle Leal 350.1.13.10 ity of [place] [phone] Nd dical nal [address] [place] [address] 2019-10-25 2019-10-25 [employer], [facility] Vascular Room [address] [place] [address] 1.2.840.114 [id number] Univers 13:01:38 14:01:38 Visit Noelle Leal 350.1.13.10 ity of [place] 4[place] [phone] Nd dical nal [address] [place] [address] 2019-10-25 2019-10-25 [employer], [facility] Vascular Room 1 - [facility] 1.2.840.114 [id number] Univers 13:01:11 14:01:11 Visit Noelle Leal 350.1.13.10 ity [place] 4[place] [phone] Nd dicme nal 9 [facility] 2019-10-25 2019-10-25 Outpatient R ELVIS [facility] [id number] Univers 13:00:00 13:00:00 NOELLE breaux o f [facility] 2019-10-25 2019-10-25 Outpatient [facility] [id number] Univers 08:00:00 08:00:00 [id number] ity of [facility] 2019-10-21 2019-10-21 Refill [facility] 1.2.840.114 [id number] Univers 00:00:00 00:00:00 Soni Thompson 350.1.13.10 ity [place] [phone] [address] 2019-10-21 2019-10-21 Telephone [facility] 1.2.979.195 [id number] Univers 00:00:00 00:00:00 Soni Thompson 350.1.13.10 ity of [place] 4[place] [phone] Nd dicme nal [address] [place] [address] 2019-10-21 2019-10-21 Refill Mariana Connolly 1.2.840.114 [id number] Univers 00:00:00 00:00:00 [facility] 350.1.13.10 it y [place] [phone] [facility] 362 Branch 2019-09-29 2019-09-29 Orders Doctor MACKEY 1.2.840.114 [id number] Univers 00:00:00 00:00:00 Only Unassigned, KEVIN 350.1.13.[address] [place] [place] 4.2.7.2.686 Qasim as [phone] [facility] 009 Branch 2019-09-23 2019-09-23 Outpatient R BALJEET OCAMPO [facility] [id number] Univers 14:00:00 14:00:00 BALJEET OCAMPO [id number] i ty of [facility] 2019-09-23 2019-09-23 Outpatient R BALJEET OCAMPO [facility] [id number] Univers 14:00:00 14:00:00 BALJEET OCAMPO i ty of [facility] 2019-09-23 2019-09-23 Telemedici [facility] 1.2.840.114 [id number] Univers 08:10:14 08:25:14 ne Visit Kyleekaedavid Jay 350.1.13.10 ity of [place] [phone] Nd dical nal 085 [facility] 2019-08-27 2019-08-27 Telephone Mariana Connolly HARRY 1.2.840.114 [id number] Univers 00:00:00 00:00:00 [facility] 350.1.13.10 it y [place] [phone] [address] 2019-08-27 2019-08-27 Telephone Mariana Connolly HARRY 1.2.840.114 [id number] Univers 00:00:00 00:00:00 [facility] 350.1.13.10 it y [place] [phone] [address] 2019-08-24 2019-08-24 Office Miranda [facility] 1.2.840.114 [id number] Univers 09:57:39 21:24:52 Visit Soni Thompson 350.1.13.10 ity of [place] 4[place].2.[place] [phone] Nd dical nal 059 [facility] 2019-08-24 2019-08-24 Outpatient MIRANDA [facility] [id number] Univers 10:00:00 10:00:00 SENDIL [id number] ity of [facility] 2019-08-24 2019-08-24 Outpatient R MIRANDA [facility] [id number] Univers 10:00:00 10:00:00 SENDIL ity of [facility] 2019-08-19 2019-08-19 Office Care, Ang Primary [place] 1.2.840 .114 [id number] Univers 08:50:57 10:27:47 [facility] 350.1.13.10 ity of [facility] 4.2.7.2.[place] [phone] [address] 2019-08-19 2019-08-19 Outpatient R [facility] [id number] Univers 09:00:00 09:00:00 [id number] ity of [facility] 2019-08-19 2019-08-19 [facility] [id number] Univers 09:00:00 09:00:00 ity of [facility] 2019-08-17 2019-08-17 Telephone Miranda [facility] [id number] [id number] Univers 00:00:00 00:00:00 Sendil Dameon Thompson 350.1.13.10 ity of [place] 4[place].2.[place] [phone] Nd dical nal 059 Branch [facility] 2019-08-17 2019-08-17 Orders Doctor NARENDRA 1.2.840.114 [id number] Univers 00:00:00 00:00:00 Only Unassigned, KEVIN 350.1.13.[address] [place] [facility] 4.2.7.2.686 Qasim as [phone] [address] 2019-08-12 2019-08-12 Outpatient R [facility] [id number] Univers 12:30:00 12:30:00 ity of [facility] 2019-08-12 2019-08-12 Outpatient R [facility] [id number] Univers 12:30:00 12:30:00 ity of [facility] 2019-08-10 2019-08-10 Office Care, Cathy Primary [place] 1.2.840 .114 [id number] Univers 08:56:13 11:20:18 [facility] [id number] ity of [facility] 4.2.7.2.[place] [phone] [address] [place] 2019-08-10 2019-08-10 Outpatient R [facility] [id number] Univers 09:00:00 09:00:00 ity of [facility] 2019-08-10 2019-08-10 Outpatient R MARIANA CONNOLLY [facility] [id number] Univers 09:00:00 09:00:00 ity of [facility] 2019-08-08 2019-08-08 Emergency X Sarah NARANJO [facility] ERT [id number] Univers 14:12:59 18:59:00 ity of [facility] 2019-08-08 2019-08-08 Emergency Sarah Naranjo [facility] 1.2.840.114 [id number] Univers 14:12:59 18:59:00 Mary Thompson 350.1.13.10 i ty of [place] 4.2.7.2.686 [facility] [phone] [facility] 084 Branch 2019-08-06 2019-08-06 Telephone Mariana Connolly MEKHIGORGE 1.2.840.114 [id number] Univers 00:00:00 00:00:00 [facility] 350.1.13.10 it y of [facility] 4.2.7.2.686 [facility] UNIT [phone] [facility] 362 Branch 2019-08-04 2019-08-04 [facility] Celena Odell 1 .2.840.114 [id number] Univers 06:59:00 23:59:00 Encounter Jd Almanzar 350.1.1 3.10 ity [facility] 4.2.7.2.686 [place] [id number] [facility] 247 Branch 2019-08-04 2019-08-04 Outpatient R SHADI [facility] [id number] Univers 06:59:34 06:59:34 CELENA ity [facility] 2019-07-30 2019-07-30 Outpatient MIRANDA [facility] [id number] Univers 09:00:00 09:00:00 SENDIL [id number] ity [facility] 2019-07-29 2019-07-29 Office Damaris [facility] 1.2.840.114 [id number] Univers 14:11:25 14:31:25 Visit Baljeet Jay 350.1.13.10 i ty of [place] [phone] Nd dical nal 085 [facility] 2019-07-29 2019-07-29 Outpatient BALJEET OCAMPO [facility] [id number] Univers 14:20:00 14:20:00 KYLEE OCAMPOKAEDavid [id number] i ty of [facility] 2019-07-27 2019-07-27 Telephone Joy Jean 1.2.809.796 [id number] Univers 00:00:00 00:00:00 Soni Wells 350.1.13.10 ity of [facility] 4.2.7.2.686 Qasim as [phone] [facility] [address] [place] 2019-07-22 2019-07-22 Office Care, [facility] 1.2.840 .114 [id number] Univers 08:32:03 09:51:36 Visit Mariana Connolly [facility] 350.1.13.10 ity of [facility] 4.2.7.2.[place] [phone] [facility] [address] [place] 2019-07-22 2019-07-22 Outpatient R MARIANA CONNOLLY [facility] [id number] Univers 08:30:00 09:36:00 ity of [facility] 2019-07-20 2019-07-20 Emergency X [facility] ERT [id number] Univers 14:30:05 16:25:00 BETTINA ity [facility] 2019-07-20 2019-07-20 Emergency [facility] [id number] Univers 14:30:05 16:25:00 Bettina Thompson 350.1.13.10 i ty of [place] 4[place].2.[place] [phone] [facility] [address] [place] 2019-07-19 2019-07-19 Telephone Miranda [facility] [id number] Univers 00:00:00 00:00:00 Soni Thompson 350.1.13.10 ity of [place] [phone] Nd dical nal 059 [facility] 2019-07-13 2019-07-13 Telephone Joy Jean 1.2.958.677 [id number] Univers 00:00:00 00:00:00 Soni Wells 350.1.13.10 ity of [facility] 4.2.7.2.686 Qasim as [phone] [address] 2019-07-13 2019-07-13 Telephone Mariana Connolly HARRY 1.2.840.114 [id number] Univers 00:00:00 00:00:00 [facility] 350.1.13.10 it y of [facility] 4.2.7.2.[place] [phone] [address] 2019-07-09 2019-07-09 Office [facility] 1.2.840.114 [id number] Univers 10:03:42 10:54:36 Visit Soni Thompson 350.1.13.10 ity of [place] 4[place].2.[place] [phone] Nd dical nal 059 [facility] 2019-07-08 2019-07-08 Office Care, Ang Primary [place] 1.2.840 .114 [id number] Univers 09:02:47 11:33:18 Visit Mariana Connolly [facility] 350.1.13.10 ity of [facility] 4.2.7.2.[place] [id number] [address] 2019-07-08 2019-07-08 Outpatient R MARIANA CONNOLLY [facility] [id number] Univers 08:15:00 09:27:04 ity of [facility] 2019-07-07 2019-07-07 Orders Doctor NARENDRA 1.2.840.114 [id number] Univers 00:00:00 00:00:00 Only Unassigned, KEVIN 350.1.13.[address] [facility] 4.2.7.2.686 Qasim as [phone] [place] [address] Branch 2019-06-24 2019-06-24 Office Care, Ang Primary [place] 1.2.840 .114 [id number] Univers 08:33:50 09:29:22 Visit Mariana Connolly [facility] 350.1.13.10 ity of [place] [id number] [address] 2019-06-24 2019-06-24 Outpatient R MARIANA CONNOLLY [facility] [id number] Univers 08:30:00 09:29:22 ity of [facility] 2019-06-18 2019-06-19 Outpatient X VINAY PINO [facility] [id number] Univers 16:58:40 17:07:00 ity of [facility] 2019-06-17 2019-06-17 Outpatient R MARIANA CONNOLLY [facility] [id number] Univers 08:15:00 09:09:58 ity of [facility] 2019-06-17 2019-06-17 Orders Doctor NARENDRA 1.2.840.114 [id number] Univers 00:00:00 00:00:00 Only Unassigned, KEVIN 350.1.13.[address] [facility] 4.2.7.2.686 Qasim as [phone] [address] 2019-06-10 2019-06-10 Outpatient R MARIANA CONNOLLY [facility] [id number] Univers 15:00:00 16:29:57 ity of [facility] 2019-06-10 2019-06-10 Orders Doctor MACKEY 1.2.840.114 [id number] Univers 00:00:00 00:00:00 Only Unassigned, KEVIN 350.1.13.[address] [facility] [place] [facility] [facility] 4.2.7.2.686 Qasim as [phone] [address] 2019-01-23 2019-01-23 Tuan Maurice 1.2.840.114 [id number] 00:00:00 00:00:00 Gregg Wallis Pediatric 350.1.13.10 s and 4.2.7.2.686 Adult [id number] Primary [facility] 2019-01-23 2019-01-23 Tuan Maurice 1.2.840.114 [id number] Univers 00:00:00 00:00:00 Gregg Wallis Pediatric 350.1.13.10 ity of [place] [phone] [place] [address] [facility] Results Test Description Test Time Test Comments Results Result Comments Source TROPONIN I 2019-08-09 00:06:00 Test Item Value Reference Range Interpretation Comme nts TROPONIN I (test code = 0.010 ng/mL See_Comment [Au tomated message] The [id number]) system which ge nerated this result tra nsmitted reference range : <=0.034. The reference r al was not used to int erpret this result as normal/abnormal . KRISHAN (test code = KRISHAN) Equal or Less than 0.034 ng/ml---Normal ?Note: Cardiac troponin begins to rise 3-4 hours after the onset of ischemia. Repeat in 4-6 hours if the sample was drawn within 3-4 hours of the onset of the symptom and found normal. Between 0.035 and 0.120 ng/mL--- Borderline. Questionable myocardial injury or necrosis ? ?Note: Serial measurement may be necessary to confirm or exclude the diagnosis of myocardial injury or necrosis; Clinical correlation (symptoms, EKGs, imaging studies, and others) required; Repeat in 4-6 hours if clinically indicated. ? Equal or Higher than 0.121 ng/mL---Abnormal. Myocardial Injury or Necrosis Likely ? Biotin has been reported to cause a negative bias, interpret results relative to patient's use of biotin. ? Lab Interpretation (test Normal code = 99960-3) [facility] [id number] 21:39:49 No acute cardiopulmonary abnormality. Preliminary Report Dictated by Resident: Karlo Wall, Marcos Anthony MD., have reviewed this study and agree with the abovereport.EXAM: XR CHEST 2 VW HISTORY: chest pain COMPARISON: Chest x-ray 06/18/2019 FINDINGS: The lungs are clear. No focal consolidation, pleural effusion orpneumothorax is seen. The cardiac silhouette is normal in size. No acute bony abnormality. [facility], Radiant Results Inft User - 08/08/2019 3:41 PM CSTEXAM: XR CHEST 2 VWHISTORY:chest pain COMPARISON: Chest x-ray 06/18/2019FINDINGS:The lungs are clear. No focal consolidation, pleural effusion orpneumothorax is seen. The cardiac silhouette is normal in size.No acute bony abnormality.IMPRESSIONNo acute cardiopulmonary abnormality.Preliminary Report Dictated by Resident: Karlo James, Marcos Anthony MD., have reviewed this study and agree with the abovereport.[facility] [id number] 21:25:00 Test Item Value Reference Range Interpretation Comments TROPONIN I (test 0.007 ng/mL See_Comment [Automated code = 6999738424) message] The system which generated this result transmitted reference range : <=0.034. The reference range was not used to interpret this result as normal/abnormal . KRISHAN (test code = Equal or Less than KRISHAN) 0.034 ng/ml---Normal ?Note: Cardiac troponin begins to rise 3-4 hours after the onset of ischemia. Repeat in 4-6 hours if the sample was drawn within 3-4 hours of the onset of the symptom and found normal. Between 0.035 and 0.120 ng/mL--- Borderline. Questionable myocardial injury or necrosis ? ?Note: Serial measurement may be necessary to confirm or exclude the diagnosis of myocardial injury or necrosis; Clinical correlation (symptoms, EKGs, imaging studies, and others) required; Repeat in 4-6 hours if clinically indicated. ? Equal or Higher than 0.121 ng/mL---Abnormal. Myocardial Injury or Necrosis Likely ? Biotin has been reported to cause a negative bias, interpret results relative to patient's use of biotin. ? Lab Interpretation Normal (test code = 95571-8) [facility]. METABOLIC PANEL (75103)2019-08-08 21:14:00 Test Item Value Reference Range Interpretation Comments NA (test code = 141 mmol/L 135-145 3657640783) K (test code = 4.0 mmol/L 3.5-5 9228257506) CL (test code = 103 mmol/L 98-108 7181066797) CO2 TOTAL (test code = 27 mmol/L 23-31 6689450080) AGAP (test code = 2-16 3732512328) BUN (test code = 16 mg/dL 7-23 3476045169) GLUCOSE (test code = 126 mg/dL 70-110 H 7666778863) CREATININE (test code = 0.61 mg/dL 0.6-1.25 0148213527) TOTAL BILI (test code = 0.3 mg/dL 0.1-1.3 3895546026) CALCIUM (test code = 9.9 mg/dL 8.6-10.6 5244451490) T PROTEIN (test code = 8.0 g/dL 6.3-8.2 8980587639) ALBUMIN (test code = 5.0 g/dL 3.5-5 7389511684) ALK PHOS (test code = 80 U/L 34-122 0895906442) ALTv (test code = 45 U/L 5-50 2-6) AST(SGOT) (test code = 35 U/L 13-40 7129639121) eGFR Calculation mL/min/1.73m2 (Non-) (test code = 9829394764) eGFR Calculation mL/min/1.73m2 () (test code = 4571643217) KRISHAN (test code = KRISHAN) Association of Glomerular Filtration Rate (GFR) and Staging of Kidney Disease* + --+ --+ ------+| GFR (mL/min/1.73 m2) ?| With Kidney Damage ?| ?Without Kidney Damage+ --------+ --------+ +| ?>90 ?| ?Stage one ?| ? Normal ?+ ---+ ---+ -------+| ?60-89 ?| ?Stage two ?| ? Decreased GFR ? + --+ --+ ------+| ?30-59 ?| ?Stage three ?| ? Stage three ? + --+ --+ ------+| ?15-29 ?| ?Stage four ? | ? Stage four ?+ ---+ ---+ -------+| ?<15 (or dialysis) ? ?| ?Stage five ? | ? Stage five ?+ ---+ ---+ -------+ *Each stage assumes the associated GFR level has been in effect for at least three months. ?Stages 1 to 5, with or without kidney disease, indicate chronic kidney disease. Notes: Determination of stages one and two (with eGFR >59mL/min/1.73 m2) requires estimation of kidney damage for at least three months as defined by structural or functional abnormalities of the kidney, manifested by either:Pathological abnormalities or Markers of kidney damage (including abnormalities in the composition of the blood or urine or abnormalities in imaging tests). Lab Interpretation Abnormal (test code = 64889-1) [facility]14[facility]00 Test Item Value Reference Range Interpretation Comments MAGNESIUM (test code = 5884187684) 1.9 mg/dL 1.7-2.4 Lab Interpretation (test code = Normal 63681-6) [facility] WITH [id number] 20:54:00 Test Item Value Reference Range Interpretation Comments WBC (test code = See_Comment [Automated message] 6690-2) The system [employer] generated this result transmitted ref erence range: 4.20 - 1 0.70 10*3/?L. The re ference range was not u sed to interpret this result as normal/abnor mal. RBC (test code = See_Comment [Automated message] 649-8) The system [employer] generated this result transmitted ref erence range: 4.26 - 5 .52 10*6/?L. The re ference range was not u sed to interpret this result as normal/abnor mal. HGB (test code = 15.2 g/dL 12.2-16.4 718-7) HCT (test code = 45.7 % 38.4-49.3 4544-3) MCV (test code = 91.6 fL 81.7-95.6 787-2) MCH (test code = 30.5 pg 26.1-32.7 785-6) MCHC (test code = 33.3 g/dL 31.2-35 786-4) RDW-SD (test code 42.7 fL 38.5-51.6 = 52194-0) RDW-CV (test code 12.8 % 12.1-15.4 = 788-0) PLT (test code = See_Comment [Automated message] 777-3) The system whic h generated this result transmitted ref erence range: 150 - 32 8 10*3/?L. The re ference range was not u sed to interpret this result as normal/abnor mal. MPV (test code = 11.7 fL 9.8-13 06162-1) NRBC/100 WBC (test See_Comment [Automat ed message] code = 5848273442) The syste m which generated this result transmitted ref erence range: 0.0 - 10 .0 /100 WBCs. The refer ence range was not u sed to interpret this result as normal/abnor mal. NRBC x10^3 (test <0.01 See_Comment [Automated message] code = 2387008979) The syste m which generated this result transmitted ref erence range: 10*3/?L. The reference range was not used to interpr et this result as normal/abnormal . GRAN MAT (NEUT) % 61.4 % (test code = 770-8) IMM GRAN % (test 0.60 % code = 2026721384) LYMPH % (test code 24.4 % = 736-9) MONO % (test code 10.3 % = 5905-5) EOS % (test code = 2.6 % 713-8) BASO % (test code 0.7 % = 706-2) GRAN MAT 5.48 10*3/uL 1.99-6.95 x10^3(ANC) (test code = 6447588751) IMM GRAN x10^3 0.05 10*3/uL 0-0.06 (test code = 8108772609) LYMPH x10^3 (test 2.17 10*3/uL 1.09-3.23 code = 731-0) MONO x10^3 (test 0.92 10*3/uL 0.36-1.02 code = 742-7) EOS x10^3 (test 0.23 10*3/uL 0.06-0.53 code = 711-2) BASO x10^3 (test 0.06 10*3/uL 0.01-0.09 code = 704-7) [facility] ACT LOW [id number] 16:07:00 Test Item Value Reference Range Interpretation Comments ACTLR (test code = See_Comment [Automat ed message] 7565264665) The system [employer] generated this result transmitted ref erence range: 89 - 169 Seconds. The re ference range was not u sed to interpret this result as normal/abnor mal. Lab Interpretation (test Normal code = 19692-8) [facility] METABOLIC PANEL (NA, K, CL, CO2, GLUCOSE, BUN, CREATININE, CA)2019-07-20 22:03:00 Test Item Value Reference Range Interpretation Comments NA (test code = 140 mmol/L 135-145 0600270734) K (test code = 4.0 mmol/L 3.5-5 7444823443) CL (test code = 106 mmol/L 98-108 3890611165) CO2 TOTAL (test code = 27 mmol/L 23-31 0198437615) AGAP (test code = 2-16 6410705328) BUN (test code = 11 mg/dL 7-23 4967430213) GLUCOSE (test code = 92 mg/dL 70-110 6632747232) CREATININE (test code 0.64 mg/dL 0.6-1.25 = 9217079061) CALCIUM (test code = 9.9 mg/dL 8.6-10.6 8929643793) eGFR Calculation mL/min/1.73m2 (Non-) (test code = 2424772778) eGFR Calculation mL/min/1.73m2 () (test code = 5835113349) KRISHAN (test code = KRISHAN) Association of Glomerular Filtration Rate (GFR) and Staging of Kidney Disease* + -+ + ---+| GFR (mL/min/1.73 m2) ?| With Kidney Damage ?| ?Without Kidney Damage+ -------+ ------+ ---------+| ?>90 ?| ?Stage one ?| ? Normal ?+ --+ -+ ----+| ?60-89 ?| ?Stage two ?| ? Decreased GFR ? + -+ + ---+| ?30-59 ?| ?Stage three ?| ? Stage three ? + -+ + ---+| ?15-29 ?| ?Stage four ? | ? Stage four ?+ --+ -+ ----+| ?<15 (or dialysis) ? ?| ?Stage five ? | ? Stage five ?+ --+ -+ ----+ *Each stage assumes the associated GFR level has been in effect for at least three months. ?Stages 1 to 5, with or without kidney disease, indicate chronic kidney disease. Notes: Determination of stages one and two (with eGFR >59mL/min/1.73 m2) requires estimation of kidney damage for at least three months as defined by structural or functional abnormalities of the kidney, manifested by either:Pathological abnormalities or Markers of kidney damage (including abnormalities in the composition of the blood or urine or abnormalities in imaging tests). [facility] WITH [id number] 21:52:00 Test Item Value Reference Range Interpretation Comments WBC (test code = See_Comment [Automated 1788-2) message] The sy stem which generated this result transmitted reference range : 4.20 - 10.70 10*3/?L. The reference range was not used to interpret this result as normal/abnormal . RBC (test code = See_Comment [Automated 756-8) message] The sy stem which generated this result transmitted reference range : 4.26 - 5.52 10*6/?L. The reference range was not used to interpret this result as normal/abnormal . HGB (test code = 15.1 g/dL 12.2-16.4 718-7) HCT (test code = 44.0 % 38.4-49.3 4544-3) MCV (test code = 90.2 fL 81.7-95.6 787-2) MCH (test code = 30.9 pg 26.1-32.7 785-6) MCHC (test code = 34.3 g/dL 31.2-35 786-4) RDW-SD (test code = 41.4 fL 38.5-51.6 15958-4) RDW-CV (test code = 12.6 % 12.1-15.4 788-0) PLT (test code = See_Comment [Automated 177-3) message] The sy stem which generated this result transmitted reference range : 150 - 328 10*3/ ?L. The reference r al was not used to interpret this result as normal/abnormal . MPV (test code = 11.0 fL 9.8-13 60212-4) NRBC/100 WBC (test See_Comment [Automat ed code = 8614536626) message] The system which generated this result transmitted reference range : 0.0 - 10.0 /100 WBCs. The refer ence range was not u sed to interpret th is result as normal/abnormal . NRBC x10^3 (test code <0.01 See_Comment [Auto mated = 0256779412) message] The s ystem which generated this result transmitted reference range : 10*3/?L. The reference range was not used to interpret this result as normal/abnormal . GRAN MAT (NEUT) % 57.0 % (test code = 770-8) IMM GRAN % (test code 0.30 % = 3363854202) LYMPH % (test code = 27.4 % 736-9) MONO % (test code = 11.9 % 5905-5) EOS % (test code = 2.9 % 713-8) BASO % (test code = 0.5 % 706-2) GRAN MAT x10^3(ANC) 4.97 10*3/uL 1.99-6.95 (test code = 0217631289) IMM GRAN x10^3 (test 0.03 10*3/uL 0-0.06 code = 1989373216) LYMPH x10^3 (test code 2.39 10*3/uL 1.09-3.23 = 731-0) MONO x10^3 (test code 1.04 10*3/uL 0.36-1.02 H = 742-7) EOS x10^3 (test code = 0.25 10*3/uL 0.06-0.53 711-2) BASO x10^3 (test code 0.04 10*3/uL 0.01-0.09 = 704-7) Lab Interpretation Abnormal (test code = 18805-3) [facility] [id number] 21:47:31 No acute intracranial abnormality. Preliminary Report Dictated by Resident: Delilah Corbett I, Stephanie Giron MD., have reviewed this study and agree with the abovereport.CT HEAD WO CONTRAST HISTORY: Headache, acute, normal neuro exam COMPARISON: None. TECHNIQUE: ?Helical CT scan of the head was performed without intervenouscontrast. Coronal and sagittal reconstructions were then generated. FINDINGS: The ventricles and cerebral sulci are normal in caliber and configuration.No hydrocephalus, midline shift or pathological extra-axial fluidcollection is present. The basal cisterns are unremarkable. There is no acute intracranial hemorrhage or significant mass effect. Noparenchymal attenuation abnormality. The dunn-white matter differentiationis preserved. The mastoid air cells and paranasal air sinuses are clear. The calvariumand central skull base are unremarkable. [facility], Radiant Results Inft User - 07/20/2019 3:48 PM CSTCT HEAD WO CONTRASTHISTORY: Headache, acute, normal neuro exam COMPARISON: None.TECHNIQUE: Helical CT scan of the head was performed without intervenouscontrast. Coronal and sagittal reconstructions were then generated.FINDINGS:The ventricles and cerebral sulci are normal incaliber and configuration.No hydrocephalus, midline shift or pathological extra-axial fluidcollection is present. The basal cisterns are unremarkable.There is no acute intracranial hemorrhage or significant mass effect. Noparenchymal attenuation abnormality. The dunn-white matter differentiationis preserved.The mastoid air cells and paranasal air sinuses are clear. The calvariumand central skull baseare unremarkable.IMPRESSIONNo acute intracranial abnormality.Preliminary Report Dictated by Resident: Stephanie Asif MD., have reviewed this study and agree with the abovereport.[facility] [id number] 12:00:00 Test Item Value Reference Range Interpretation Comments CULTURE (BEAKER) (test No growth in 5 days code = 1095) BLOOD [id number] 12:00:00 Test Item Value Reference Range Interpretation Comments CULTURE (BEAKER) (test No growth in 5 days code = 1095) [id number] 07:30:00 Test Item Value Reference Range Interpretation Comments MAGNESIUM (BEAKER) (test code = 1.9 mg/dL 1.6-2.6 627) BASIC METABOLIC [id number] 07:30:00 Test Item Value Reference Range Interpretation Comments SODIUM (BEAKER) 137 meq/L 136-145 (test code = 381) POTASSIUM (BEAKER) 4.0 meq/L 3.5-5.1 (test code = 379) CHLORIDE (BEAKER) 108 meq/L 98-107 H (test code = 382) CO2 (BEAKER) (test 21 meq/L 22-29 L code = 355) BLOOD UREA NITROGEN 12 mg/dL 7-21 (BEAKER) (test code = 354) CREATININE (BEAKER) 0.69 mg/dL 0.57-1.25 (test code = 358) GLUCOSE RANDOM 93 mg/dL 70-105 (BEAKER) (test code = 652) CALCIUM (BEAKER) 9.4 mg/dL 8.4-10.2 (test code = 697) EGFR (BEAKER) (test 121 mL/min/1.73 ESTIM ATED GFR IS code = 1092) sq m NOT ACCURATE CREATININE CLEARANCE IN PREDICTING GLOMERULAR FILTRATION RATE . ESTIMATED GFR I S NOT APPLICABLE FOR DIALYSIS PATIEN TS. CBC (HEMOGRAM ONLY)2017-09-28 07:02:00 Test Item Value Reference Range Interpretation Comments WHITE BLOOD CELL COUNT (BEAKER) 11.9 K/ L 3.5-10.5 H (test code = 775) RED BLOOD CELL COUNT (BEAKER) 5.10 M/ L 4.63-6.08 (test code = 761) HEMOGLOBIN (BEAKER) (test code = 15.1 GM/DL 13.7-17.5 410) HEMATOCRIT (BEAKER) (test code = 47.4 % 40.1-51.0 411) MEAN CORPUSCULAR VOLUME (BEAKER) 92.9 fL 79.0-92.2 H (test code = 753) MEAN CORPUSCULAR HEMOGLOBIN 29.6 pg 25.7-32.2 (BEAKER) (test code = 751) MEAN CORPUSCULAR HEMOGLOBIN CONC 31.9 GM/DL 32.3-36.5 L (BEAKER) (test code = 752) RED CELL DISTRIBUTION WIDTH 12.6 % 11.6-14.4 (BEAKER) (test code = 412) PLATELET COUNT (BEAKER) (test 178 K/CU MM 150-450 code = 756) MEAN PLATELET VOLUME (BEAKER) 11.8 fL 9.4-12.4 (test code = 754) NUCLEATED RED BLOOD CELLS 0 /100 WBC 0-0 (BEAKER) (test code = 413) TROPONIN [id number] 22:02:00 Test Item Value Reference Range Interpretation Comments TROPONIN I (BEAKER) (test code = 63.70 ng/mL 0.00-0.03 397) Troponin I (TnI) levels must be interpreted [...] neurological disease, and persistent tachyarrhythmia.TSH/FREE T4 IF [id number] 16:05:00 Test Item Value Reference Range Interpretation Comments THYROID STIMULATING HORMONE 1.30 uIU/mL 0.35-4.94 (BEAKER) (test code = 772) Draw next time labs are dueTROPONIN [id number] 14:46:00 Test Item Value Reference Range Interpretation Comments TROPONIN I (BEAKER) (test code = 100.07 ng/mL 0.00-0.03 397) Troponin I (TnI) levels must be interpreted [...] acidosis, acute neurological disease, and persistent tachyarrhythmia.HEMOGLOBIN [id number] 12:38:00 Test Item Value Reference Range Interpretation Comments HEMOGLOBIN A1C (BEAKER) (test code = 5.2 % 4.3-6.1 368) RAPID DRUG SCREEN, [id number] 10:53:00 Test Item Value Reference Range Interpretation Comments BARBITURATE URINE (BEAKER) (test Negative Negative code = 725) BENZODIAZEPINE SCREEN URINE (BEAKER) Positive Negative A (test code = 726) COCAINE (METAB.) SCREEN (BEAKER) Negative Negative (test code = 1164) METHADONE SCREEN (BEAKER) (test code Negative Negative = 1436) OPIATE SCREEN URINE (BEAKER) (test Positive Negative A code = 734) CANNABINOID SCREEN URINE (BEAKER) Negative Negative (test code = 727) AMPH/METHAMPH SCREEN (BEAKER) (test Negative Negative code = 1438) PHENCYCLIDINE SCREEN URINE (BEAKER) Negative Negative (test code = 608) OXYCODONE SCREEN URINE (BEAKER) Negative Negative (test code = 2761) DRUG CUTOFF CONC.Cocaine 300 ng/mL Cannabinoid 50 ng/mL Benzodiazepine 200 ng/mLBarbiturate 200 ng/mLPhencyclidine 25 ng/mLOpiate 300 ng/mLMethadone 300 ng/mLAmphetamine/ 1000 ng/mL MethamphetamineOxycodone 300 ng/mLThis assay provides an unconfirmed qualitative test result for the clinical management of patients in emergency situations. Chain of custody not maintained. Some vcwl-vxg-wufhvdu medications, as well as adulterants, may cause inaccurate results. Clinical correlation should be applied. A more comprehensive drug screen or confirmation of a detected drug may be performed upon request. LIPID [id number] 09:21:00 Test Item Value Reference Range Interpretation Comments TRIGLYCERIDES (BEAKER) (test code = 128 mg/dL 540) CHOLESTEROL (BEAKER) (test code = 181 mg/dL 631) HDL CHOLESTEROL (BEAKER) (test code 32 mg/dL = 976) LDL CHOLESTEROL CALCULATED (BEAKER) 123 mg/dL (test code = 633) Triglyceride Reference Range: Low Risk <150 Borderline 150-199 High Risk 200-499 Very High Risk >=500Cholesterol Reference Range: Low Risk <200 Borderline 200-239 High Risk >240HDL Cholesterol Reference Range: Low Risk >=60 High Risk <40LDL Cholesterol Reference Range: Optimal <100 Near Optimal 100-129 Borderline 130-159 High 160-189 Very High >=190TROPONIN [id number] 07:55:00 Test Item Value Reference Range Interpretation Comments TROPONIN I (BEAKER) (test code = 72.42 ng/mL 0.00-0.03 HH 397) Troponin I (TnI) levels must be interpreted [...] failure, acidosis, acute neurological disease, and persistent tachyarrhythmia.PT/[id number] 06:39:00 Test Item Value Reference Range Interpretation Comments PROTIME (BEAKER) (test code = 13.2 seconds 11.7-14.7 759) INR (BEAKER) (test code = 370) 1.0 <=5.9 PARTIAL THROMBOPLASTIN TIME 29.7 seconds 22.5-36.0 (BEAKER) (test code = 760) RECOMMENDED COUMADIN/WARFARIN INR THERAPY RANGESSTANDARD DOSE: 2.0 - 3.0 Includes: PROPHYLAXIS forvenous thrombosis, systemic embolization; TREATMENT for venous thrombosis and/or pulmonary embolus.HIGH RISK: Target INR is 2.5-3.5 for patients with mechanical heart valves.URINALYSIS W/ [id number] 06:31:00 Test Item Value Reference Range Interpretation Comments COLOR (BEAKER) (test code Yellow = 470) CLARITY (BEAKER) (test Clear code = 469) SPECIFIC GRAVITY UA > 1.001-1.035 H (BEAKER) (test code = 468) PH UA (BEAKER) (test code 6.5 5.0-8.0 = 467) PROTEIN UA (BEAKER) (test 10 mg/dL Negative A code = 464) GLUCOSE UA (BEAKER) (test Negative Negative code = 365) KETONES UA (BEAKER) (test 20 mg/dL Negative A code = 371) BILIRUBIN UA (BEAKER) Negative Negative (test code = 462) BLOOD UA (BEAKER) (test Negative Negative code = 461) NITRITE UA (BEAKER) (test Negative Negative code = 465) LEUKOCYTE ESTERASE UA Negative Negative (BEAKER) (test code = 466) UROBILINOGEN UA (BEAKER) 0.2 mg/dL 0.2-1.0 (test code = 463) RBC UA (BEAKER) (test 1 /HPF code = 519) WBC UA (BEAKER) (test 1 /HPF code = 520) MUCUS (BEAKER) (test code Rare = 1574) SOURCE(BEAKER) (test code Urine, Straight = 1983) Catheter BASIC METABOLIC [id number] 06:09:00 Test Item Value Reference Range Interpretation Comments SODIUM (BEAKER) 136 meq/L 136-145 (test code = 381) POTASSIUM (BEAKER) 4.2 meq/L 3.5-5.1 (test code = 379) CHLORIDE (BEAKER) 105 meq/L 98-107 (test code = 382) CO2 (BEAKER) (test 23 meq/L 22-29 code = 355) BLOOD UREA NITROGEN 10 mg/dL 7-21 (BEAKER) (test code = 354) CREATININE (BEAKER) 0.74 mg/dL 0.57-1.25 (test code = 358) GLUCOSE RANDOM 120 mg/dL 70-105 H (BEAKER) (test code = 652) CALCIUM (BEAKER) 8.8 mg/dL 8.4-10.2 (test code = 697) EGFR (BEAKER) (test 112 mL/min/1.73 ESTIM ATED GFR IS code = 1092) sq m NOT ACCURATE CREATININE CLEARANCE IN PREDICTING GLOMERULAR FILTRATION RATE . ESTIMATED GFR I S NOT APPLICABLE FOR DIALYSIS PATIEN TS. CBC W/PLT COUNT & AUTO [id number] 05:57:00 Test Item Value Reference Range Interpretation Comments WHITE BLOOD CELL COUNT (BEAKER) 15.3 K/ L 3.5-10.5 H (test code = 775) RED BLOOD CELL COUNT (BEAKER) 4.56 M/ L 4.63-6.08 L (test code = 761) HEMOGLOBIN (BEAKER) (test code = 13.8 GM/DL 13.7-17.5 410) HEMATOCRIT (BEAKER) (test code = 42.8 % 40.1-51.0 411) MEAN CORPUSCULAR VOLUME (BEAKER) 93.9 fL 79.0-92.2 H (test code = 753) MEAN CORPUSCULAR HEMOGLOBIN 30.3 pg 25.7-32.2 (BEAKER) (test code = 751) MEAN CORPUSCULAR HEMOGLOBIN CONC 32.2 GM/DL 32.3-36.5 L (BEAKER) (test code = 752) RED CELL DISTRIBUTION WIDTH 12.8 % 11.6-14.4 (BEAKER) (test code = 412) PLATELET COUNT (BEAKER) (test 181 K/CU MM 150-450 code = 756) MEAN PLATELET VOLUME (BEAKER) 11.5 fL 9.4-12.4 (test code = 754) NUCLEATED RED BLOOD CELLS 0 /100 WBC 0-0 (BEAKER) (test code = 413) NEUTROPHILS RELATIVE PERCENT 75 % (BEAKER) (test code = 429) LYMPHOCYTES RELATIVE PERCENT 12 % (BEAKER) (test code = 430) MONOCYTES RELATIVE PERCENT 11 % (BEAKER) (test code = 431) EOSINOPHILS RELATIVE PERCENT 1 % (BEAKER) (test code = 432) BASOPHILS RELATIVE PERCENT 0 % (BEAKER) (test code = 437) NEUTROPHILS ABSOLUTE COUNT 11.48 K/ L 1.78-5.38 H (BEAKER) (test code = 670) LYMPHOCYTES ABSOLUTE COUNT 1.88 K/ L 1.32-3.57 (BEAKER) (test code = 414) MONOCYTES ABSOLUTE COUNT (BEAKER) 1.73 K/ L 0.30-0.82 H (test code = 415) EOSINOPHILS ABSOLUTE COUNT 0.12 K/ L 0.04-0.54 (BEAKER) (test code = 416) BASOPHILS ABSOLUTE COUNT (BEAKER) 0.04 K/ L 0.01-0.08 (test code = 417) IMMATURE GRANULOCYTES-RELATIVE 1 % 0-1 PERCENT (BEAKER) (test code = 2801) [id number] 01:38:00 Test Item Value Reference Range Interpretation Comments ACTIVATED CLOTTING TIME 131 sec TEST ED AT [place] [address] ([facility]) (test code = [place] [address]) [id number] 01:38:00 Test Item Value Reference Range Interpretation Comments ACTIVATED CLOTTING TIME 147 sec TEST ED AT [place] [address] ([facility]) (test code = [place] [address]) [id number] RAD, CHEST, 1 VIEW, NON [id number] 23:46:00Reason for exam:->STEMIShould this be performed at the bedside?->YesFINAL REPORT History: DC. Comparison: None. Findings: A single view of the chest is submitted. The patient is rotated to the right. The cardiomediastinal contours are unremarkable. The lung volumes are slightly low. Diffusely coarsened interstitial markings could reflect interstitial scarring or mild pulmonary interstitial edema. Bullae are noted in the left apex. There is nofocal consolidation, pneumothorax, large pleural effusion or acute bony abnormality. Signed: Michael Joel MDReport Verified Date/Time: 09/26/2017 23:46:29 Reading Location: [address] Reading Room TROPONIN [id number] 22:47:00 Test Item Value Reference Range Interpretation Comments TROPONIN I (BEAKER) (test code = 56.52 ng/mL 0.00-0.03 HH 397) Troponin I (TnI) levels must be interpreted [...] failure, acidosis, acute neurological disease, and persistent tachyarrhythmia.[id number] 22:39:00 Test Item Value Reference Range Interpretation Comments PARTIAL THROMBOPLASTIN TIME > seconds 22.5-36.0 HH (BEAKER) (test code = 760) B-TYPE NATRIURETIC FACTOR (BNP)2017-09-26 22:27:00 Test Item Value Reference Range Interpretation Comments B-TYPE NATRIURETIC PEPTIDE (BEAKER) 71 pg/mL 0-100 (test code = 700) [id number] 22:20:00 Test Item Value Reference Range Interpretation Comments PHOSPHORUS (BEAKER) 3.6 mg/dL 2.3-4.7 Specimen slightly (test code = 604) hemolyzed BASIC METABOLIC [id number] 22:20:00 Test Item Value Reference Range Interpretation Comments SODIUM (BEAKER) 136 meq/L 136-145 (test code = 381) POTASSIUM (BEAKER) 4.0 meq/L 3.5-5.1 Specimen slightly (test code = 379) hemolyzed CHLORIDE (BEAKER) 107 meq/L 98-107 (test code = 382) CO2 (BEAKER) (test 19 meq/L 22-29 L code = 355) BLOOD UREA NITROGEN 12 mg/dL 7-21 (BEAKER) (test code = 354) CREATININE (BEAKER) 0.68 mg/dL 0.57-1.25 Specimen slightly (test code = 358) hemolyzed GLUCOSE RANDOM 122 mg/dL 70-105 H (BEAKER) (test code = 652) CALCIUM (BEAKER) 8.6 mg/dL 8.4-10.2 (test code = 697) EGFR (BEAKER) (test 123 mL/min/1.73 ESTIM ATED GFR IS code = 1092) sq m NOT ACCURATE CREATININE CLEARANCE IN PREDICTING GLOMERULAR FILTRATION RATE . ESTIMATED GFR I S NOT APPLICABLE FOR DIALYSIS PATIEN TS. HEPATIC FUNCTION [id number] 22:20:00 Test Item Value Reference Range Interpretation Comments TOTAL PROTEIN (BEAKER) 6.6 gm/dL 6.0-8.3 Speci men slightly (test code = 770) hemolyzed ALBUMIN (BEAKER) (test 3.9 g/dL 3.5-5.0 Speci men slightly code = 1145) hemolyzed BILIRUBIN TOTAL 0.5 mg/dL 0.2-1.2 Specimen sli ghtly (BEAKER) (test code = hemoly zed 377) BILIRUBIN DIRECT 0.2 mg/dL 0.1-0.5 Specimen sl ightly (BEAKER) (test code = hemoly zed 706) ALKALINE PHOSPHATASE 65 U/L 40-150 (BEAKER) (test code = 346) AST (SGOT) (BEAKER) 214 U/L 5-34 H Specimen slightly (test code = 353) hemolyzed ALT (SGPT) (BEAKER) 39 U/L 6-55 Specimen slightly (test code = 347) hemolyzed [id number] 22:20:00 Test Item Value Reference Range Interpretation Comments MAGNESIUM (BEAKER) 1.9 mg/dL 1.6-2.6 Specimen slightly (test code = 627) hemolyzed PROTHROMBIN [id number] 22:19:00 Test Item Value Reference Range Interpretation Comments PROTIME (BEAKER) (test code = 15.5 seconds 11.7-14.7 H 759) INR (BEAKER) (test code = 370) 1.2 <=5.9 RECOMMENDED COUMADIN/WARFARIN INR THERAPY RANGESSTANDARD DOSE: 2.0 - 3.0 Includes: PROPHYLAXIS forvenous thrombosis, systemic embolization; TREATMENT for venous thrombosis and/or pulmonary embolus.HIGH RISK: Target INR is 2.5-3.5 for patients with mechanical heart valves.CBC W/PLT COUNT & AUTO DIFFERENTIAL 2017-09-26 22:03:00 Test Item Value Reference Range Interpretation Comments WHITE BLOOD CELL COUNT (BEAKER) 15.7 K/ L 3.5-10.5 H (test code = 775) RED BLOOD CELL COUNT (BEAKER) 4.35 M/ L 4.63-6.08 L (test code = 761) HEMOGLOBIN (BEAKER) (test code = 13.4 GM/DL 13.7-17.5 L 410) HEMATOCRIT (BEAKER) (test code = 40.1 % 40.1-51.0 411) MEAN CORPUSCULAR VOLUME (BEAKER) 92.2 fL 79.0-92.2 (test code = 753) MEAN CORPUSCULAR HEMOGLOBIN 30.8 pg 25.7-32.2 (BEAKER) (test code = 751) MEAN CORPUSCULAR HEMOGLOBIN CONC 33.4 GM/DL 32.3-36.5 (BEAKER) (test code = 752) RED CELL DISTRIBUTION WIDTH 12.6 % 11.6-14.4 (BEAKER) (test code = 412) PLATELET COUNT (BEAKER) (test 177 K/CU MM 150-450 code = 756) MEAN PLATELET VOLUME (BEAKER) 11.4 fL 9.4-12.4 (test code = 754) NUCLEATED RED BLOOD CELLS 0 /100 WBC 0-0 (BEAKER) (test code = 413) NEUTROPHILS RELATIVE PERCENT 80 % (BEAKER) (test code = 429) LYMPHOCYTES RELATIVE PERCENT 11 % (BEAKER) (test code = 430) MONOCYTES RELATIVE PERCENT 7 % (BEAKER) (test code = 431) EOSINOPHILS RELATIVE PERCENT 1 % (BEAKER) (test code = 432) BASOPHILS RELATIVE PERCENT 0 % (BEAKER) (test code = 437) NEUTROPHILS ABSOLUTE COUNT 12.50 K/ L 1.78-5.38 H (BEAKER) (test code = 670) LYMPHOCYTES ABSOLUTE COUNT 1.78 K/ L 1.32-3.57 (BEAKER) (test code = 414) MONOCYTES ABSOLUTE COUNT (BEAKER) 1.08 K/ L 0.30-0.82 H (test code = 415) EOSINOPHILS ABSOLUTE COUNT 0.14 K/ L 0.04-0.54 (BEAKER) (test code = 416) BASOPHILS ABSOLUTE COUNT (BEAKER) 0.06 K/ L 0.01-0.08 (test code = 417) IMMATURE GRANULOCYTES-RELATIVE 1 % 0-1 PERCENT ([facility]) (test code = 2801) [id number] 21:55:00 Test Item Value Reference Range Interpretation Comments ACTIVATED CLOTTING TIME 208 sec TEST ED AT [place] [address] ([facility]) (test code = IFTIKHAR Siddiqui [place] [address]) [id number] 19:50:00 Test Item Value Reference Range Interpretation Comments ACTIVATED CLOTTING TIME 301 sec TEST ED AT [place] [address] ([facility]) (test code = LARRYIL Chen [place] [address]) [id number]"
[2021-07-25] MEDS ORDERED: ASPIRIN 81 MG CHEWABLE TABLET ONE (23:02)
[2021-07-25 23:27] LABS: Protime INR 0.88
[2021-07-25 23:29] LABS: Absolute Lymphocytes (CBC) 1.5 K/uL (0.7-4.9); Hematocrit 43.4 % (39.6-49.0); Lymphocytes % 17.5 % (15.3-44.8); MPV 9.4 fL (7.6-11.3); RBC Red Blood Cell Count 4.76 M/uL (4.33-5.43)
[2021-07-25 23:51] LABS: ALT/SGPT 40 U/L (12-78); Albumin 3.6 g/dL (3.4-5.0); Alkaline Phosphatase 91 U/L (45-117); BUN Blood Urea Nitrogen 20 mg/dL (7-18); Bicarbonate 26 mmol/L (21-32); Bilirubin Direct < 0.1 mg/dL (0-0.2); Bilirubin Total 0.2 mg/dL (0.2-1.0); Glucose Level 118 mg/dL (74-106); NT PRO-BNP 61 pg/mL (<125); Protein, Total 7.1 g/dL (6.4-8.2); Sodium Level 139 mmol/L (136-145)
[2021-07-25 23:52] LABS: AST/SGOT 25 U/L (15-37); Magnesium 2.1 mg/dL (1.8-2.4); Potassium 4.3 mmol/L (3.5-5.1)
--- NOTE | 2021-07-26 00:17 | ER ---
Nurse's Notes [facility] Name: Garcia Matta Age: 56 yrs Sex: Male : 1965 Arrival Date: 07/25/2021 Time: 22:24 Bed 15 Private MD: Diagnosis: Chest pain, unspecified Presentation: 07/25 22:37 Chief complaint: Patient states: " I have been having chest pain for the past couple of tw5 days but it has been getting progressively worse.". Coronavirus screen: Vaccine status: Patient reports receiving the 2nd dose of the covid vaccine. dont remember brand, due for booster on . Ebola Screen: Patient negative for fever greater than or equal to 101.5 degrees Fahrenheit, and additional compatible Ebola Virus Disease symptoms Patient denies exposure to infectious person. Patient denies travel to an Ebola-affected area in the 21 days before illness onset. Initial Sepsis Screen: Does the patient meet any 2 criteria? No. Patient's initial sepsis screen is negative. Does the patient have a suspected source of infection? No. Patient's initial sepsis screen is negative. Risk Assessment: Do you want to hurt yourself or someone else? Patient reports no desire to harm self or others. Onset of symptoms was July 23, 2021. 22:37 Method Of Arrival: Ambulatory tw5 22:37 Acuity: CATARINA 2 tw5 Triage Assessment: 22:40 General: Appears in no apparent distress. Behavior is calm, cooperative, appropriate tw5 for age. Pain: Complains of pain in anterior aspect of left upper chest and left breast Pain currently is 7 out of 10 on a pain scale. Respiratory: Reports shortness of breath Onset: The symptoms/episode began/occurred gradually, the patient has mild shortness of breath. Historical: - Allergies: 22:40 No Known Allergies; tw5 - Home Meds: 22:40 aspirin 81 mg Oral chew 1 tab once daily [Active]; metoprolol succinate 25 mg oral CSpX tw5 1 cap once daily [Active]; Unithroid 50 mcg oral tab 1 tab once daily [Active]; clopidogrel 75 mg oral tab 1 tab once daily [Active]; carvedilol 12.5 mg oral tab 1 tab 2 times per day [Active]; lisinopril 10 mg Oral tab 1 tab once daily [Active]; atorvastatin 80 mg oral tab 1 tab once daily [Active]; Albuterol Inhl [Active]; - PMHx: 22:40 "aneursym on heart"; CAD; COPD; GERD; Heart Murmur; Hyperlipidemia; Hypertension; tw5 Myocardial infarction; Pneumothorax; - PSHx: 22:40 stents x 3; tw5 - Immunization history:: Flu vaccine is not up to date. - Social history:: Smoking status: Patient reports the use of cigarette tobacco products, smokes one-half pack cigarettes per day. Screenin:00 Abuse screen: Denies threats or abuse. Denies injuries from another. Nutritional tk1 screening: No deficits noted. Tuberculosis screening: No symptoms or risk factors identified. Fall Risk None identified. Assessment: 23:00 General: Appears comfortable, slender, well developed, well nourished, Behavior is tk1 calm, cooperative, appropriate for age. Pain: Complains of pain in chest Pain does not radiate. Pain at worst was 10 out of 10 on a pain scale. Quality of pain is described as sharp, Pain began 1 day ago. Is episodic. Neuro: Level of Consciousness is awake, alert, obeys commands, Oriented to person, place, time, situation, Appropriate for age Roentgenologist are equal bilaterally Moves all extremities. Gait is steady, Speech is normal, Facial symmetry appears normal, Pupils are PERRLA. Cardiovascular: Heart tones S1 S2 Capillary refill < 3 seconds is brisk in bilateral fingers Clubbing of nail beds is absent Rhythm is sinus rhythm. Respiratory: Airway is patent Trachea midline Respiratory effort is even, unlabored, Breath sounds are coarse bilaterally. GI: No deficits noted. No signs and/or symptoms were reported involving the gastrointestinal system. : No deficits noted. No signs and/or symptoms were reported regarding the genitourinary system. EENT: No deficits noted. No signs and/or symptoms were reported regarding the EENT system. Derm: No deficits noted. No signs and/or symptoms reported regarding the dermatologic system. Musculoskeletal: No deficits noted. No signs and/or symptoms reported regarding the musculoskeletal system. 07/26 00:22 Reassessment: Patient and/or family updated on plan of care and expected duration. Pain tk1 level reassessed. Patient is alert, oriented x 3, equal unlabored respirations, skin warm/dry/pink. COVID results returned. Patient positive. Patient denies pain at this time. 00:43 Reassessment: CINDY Guevara returned call. BECK Sanchez gave report. tk1 00:43 Reassessment: Patient left unit for transfer to [facility]. with tech. tk1 Vital Signs: 07/25 22:37 BP 134 / 84; Pulse 92; Resp 18; Temp 98.1(O); Pulse Ox 98% on R/A; Weight 86.18 kg; tw5 Height 6 ft. 1 in. (185.42 cm); Pain 7/10; 23:00 BP 114 / 93 RA Supine (auto/reg); Pulse 83 MON; Resp 20 S; Temp 98(O); Pulse Ox 97% on tk1 R/A; Pain 0/10; 07/26 00:22 BP 118 / 82 RA Supine (auto/reg); Pulse 81 MON; Resp 20 S; Pulse Ox 95% on R/A; Pain tk1 0/10; 07/25 22:37 Body Mass Index 25.07 (86.18 kg, 185.42 cm) tw5 Vitals: 07/25 23:00 Cardiac Rhythm Assessment Regular Sinus rhythm. tk1 [place] Coma Score: 23:00 Eye Response: spontaneous(4). Verbal Response: oriented(5). Motor Response: obeys tk1 commands(6). Total: 15. ED Course: 22:24 Patient arrived in ED. kc5 22:40 Triage completed. tw5 22:40 Arm band placed on right wrist. tw5 22:45 EKG completed in triage. Results shown to MD. tw5 22:46 Dannielle Rdz FNP-C is [facility]. kb 22:46 Edmar Franks MD is Attending Physician. kb 22:57 Iesha Barbour is Primary Nurse. tk1 23:00 Placed in gown. Bed in low position. Call light in reach. Side rails up X 1. Cardiac tk1 monitor on. Pulse ox on. NIBP on. Warm blanket given. 23:00 No provider procedures requiring assistance completed. Missed attempt(s): 20 gauge in tk1 right hand. wrist. forearm. Bleeding controlled, band aid applied, catheter tip intact. Patient maintains SpO2 saturation greater than 95% on room air. 23:19 Basic Metabolic Panel Sent. tk1 23:20 CBC with Diff Sent. tk1 23:20 LFT's Sent. tk1 23:20 Magnesium Sent. tk1 23:20 NT PRO-BNP Sent. tk1 23:20 PT-INR Sent. tk1 23:20 Troponin HS Sent. tk1 23:20 Basic Metabolic Panel Sent. tk1 23:20 COVID-19 SARS RT PCR (Document "Date of Onset" if Symptomatic) Sent. tk1 23:30 Inserted saline lock: 22 gauge in left wrist, using aseptic technique. tw5 07/26 00:08 XRAY Chest (1 view) In Process Unspecified. EDMS 00:16 Jose Antonio Pickens MD is Hospitalizing Provider. kb Administered Medications: 07/25 23:00 Drug: Aspirin Chewable Tablet 324 mg Route: PO; tk1 23:32 Follow up: Response: No adverse reaction tk1 Outcome: 07/26 00:16 Decision to Hospitalize by Provider. kb 00:28 Admitted to accompanied by tech, via wheelchair, with chart. tk1 00:28 Admitted to Report called to Attempt to give report to CINDY Beebe. Requested to call me back in 5 minutes. 00:28 Condition: stable 00:49 Patient left the ED. tk1 Signatures: Dispatcher [employer] EDMS Dannielle Rdz, MAICO HAHNP-Regla Friedman tw5 Essence Zuñiga kc5 Iesha Barbour tk1
--- NOTE | 2021-07-26 00:17 | EDPHYS ---
Physician Documentation [facility] Name: Garcia Matta Age: 56 yrs Sex: Male : 1965 Arrival Date: 07/25/2021 Time: 22:24 Bed 15 Private MD: ED Physician Edmar Franks HPI: 07/26 00:14 This 56 yrs old Male presents to ER via Ambulatory with complaints of Shortness Of kb Breath, Chest Pain. 00:14 The patient or guardian reports chest pain that is located primarily in the anterior kb chest wall. Onset: 3 day(s) ago, and became worse today. The pain does not radiate. Associated signs and symptoms: Pertinent positives: dizziness, shortness of breath. The chest pain is described as aching. Duration: The patient or guardian reports multiple episodes, that are intermittent, with no pattern. Modifying factors: The symptoms are alleviated by nothing. the symptoms are aggravated by nothing. Severity of pain: At its worst the pain was moderate in the emergency department the pain is unchanged. The patient has experienced similar episodes in the past, a few times. The patient has not recently seen a physician. Pt reports intermittent chest pain for 3 days with shortness of breath. Today the pain was worse and he was having some dizziness which is what happened when he had a STEMI in 2018. Historical: - Allergies: 07/25 22:40 No Known Allergies; tw5 - Home Meds: 22:40 aspirin 81 mg Oral chew 1 tab once daily [Active]; metoprolol succinate 25 mg oral CSpX tw5 1 cap once daily [Active]; Unithroid 50 mcg oral tab 1 tab once daily [Active]; clopidogrel 75 mg oral tab 1 tab once daily [Active]; carvedilol 12.5 mg oral tab 1 tab 2 times per day [Active]; lisinopril 10 mg Oral tab 1 tab once daily [Active]; atorvastatin 80 mg oral tab 1 tab once daily [Active]; Albuterol Inhl [Active]; - PMHx: 22:40 "aneursym on heart"; CAD; COPD; GERD; Heart Murmur; Hyperlipidemia; Hypertension; tw5 Myocardial infarction; Pneumothorax; - PSHx: 22:40 stents x 3; tw5 - Immunization history:: Flu vaccine is not up to date. - Social history:: Smoking status: Patient reports the use of cigarette tobacco products, smokes one-half pack cigarettes per day. ROS: 07/26 00:13 Constitutional: Negative for fever, chills, and weight loss. kb Cardiovascular: Positive for chest pain, Negative for edema, orthopnea, palpitations, paroxysmal nocturnal dyspnea. Respiratory: Positive for shortness of breath, Negative for cough, dyspnea on exertion, hemoptysis, orthopnea, pleurisy, sputum production, wheezing. Neuro: Positive for dizziness. All other systems are negative. Exam: 00:14 Constitutional: This is a well developed, well nourished patient who is awake, alert, kb and in no acute distress. Head/Face: Normocephalic, atraumatic. ENT: Moist Mucous membranes Cardiovascular: Regular rate and rhythm with a normal S1 and S2. No gallops, murmurs, or rubs. No pulse deficits. Respiratory: Respirations even and unlabored. No increased work of breathing. Talking in full sentences Skin: Warm, dry with normal turgor. Normal color. MS/ Extremity: Pulses equal, no cyanosis. Neurovascular intact. Full, normal range of motion. Neuro: Awake and alert, GCS 15, oriented to person, place, time, and situation. Moves all extremities. Normal gait. Psych: Awake, alert, with orientation to person, place and time. Behavior, mood, and affect are within normal limits. Vital Signs: 07/25 22:37 BP 134 / 84; Pulse 92; Resp 18; Temp 98.1(O); Pulse Ox 98% on R/A; Weight 86.18 kg; tw5 Height 6 ft. 1 in. (185.42 cm); Pain 7/10; 23:00 BP 114 / 93 RA Supine (auto/reg); Pulse 83 MON; Resp 20 S; Temp 98(O); Pulse Ox 97% on tk1 R/A; Pain 0/10; 07/26 00:22 BP 118 / 82 RA Supine (auto/reg); Pulse 81 MON; Resp 20 S; Pulse Ox 95% on R/A; Pain tk1 0/10; 07/25 22:37 Body Mass Index 25.07 (86.18 kg, 185.42 cm) tw5 Maria Fernanda Coma Score: 07/25 23:00 Eye Response: spontaneous(4). Verbal Response: oriented(5). Motor Response: obeys tk1 commands(6). Total: 15. MDM: 22:46 Patient medically screened. kb 07/26 00:13 Data reviewed: vital signs, nurses notes. Data interpreted: Pulse oximetry: on room air kb is 97 %. Interpretation: normal. Counseling: I had a detailed discussion with the patient and/or guardian regarding: the historical points, exam findings, and any diagnostic results supporting the discharge/admit diagnosis, lab results, radiology results, the need for further work-up and treatment in the hospital. Physician consultation: Daniel NINA was contacted at 00:13, regarding admission, to the telemetry unit. patient's condition, and will see patient in ED. 07/25 22:53 Order name: Basic Metabolic Panel kb 07/25 22:53 Order name: CBC with Diff; Complete Time: 23:42 kb 07/25 22:53 Order name: LFT's; Complete Time: 23:56 kb 07/25 22:53 Order name: Magnesium; Complete Time: 23:56 kb 07/25 22:53 Order name: NT PRO-BNP; Complete Time: 23:56 kb 07/25 22:53 Order name: PT-INR; Complete Time: 23:31 kb 07/25 22:53 Order name: Troponin HS; Complete Time: 23:56 kb 07/25 22:53 Order name: XRAY Chest (1 view) kb 07/25 22:53 Order name: EKG; Complete Time: 22:54 kb 07/25 22:53 Order name: Cardiac monitoring; Complete Time: 23:19 kb 07/25 22:53 Order name: EKG - Nurse/Tech; Complete Time: 23:19 kb 07/25 22:53 Order name: COVID-19 SARS RT PCR (Document "Date of Onset" if Symptomatic); Complete kb Time: 00:18 07/25 22:54 Order name: Basic Metabolic Panel; Complete Time: 23:56 EDMS 07/25 22:53 Order name: IV Saline Lock; Complete Time: 00:24 kb 07/25 22:53 Order name: Labs collected and sent; Complete Time: 23:19 kb 07/25 22:53 Order name: O2 Per Protocol; Complete Time: 23:19 kb 07/25 22:53 Order name: O2 Sat Monitoring; Complete Time: 23:19 kb Administered Medications: 07/25 23:00 Drug: Aspirin Chewable Tablet 324 mg Route: PO; tk1 23:32 Follow up: Response: No adverse reaction tk1 Disposition Summary: 07/26/21 00:16 Hospitalization Ordered Hospitalization Status: Observation kb Provider: Jose Antonio Pickens Location: Telemetry/MedSurg (observation) kb Condition: Stable kb Problem: new kb Symptoms: are unchanged kb Bed/Room Type: Standard Room Assignment: 404(07/26/21 00:21) eb1 Diagnosis - Chest pain, unspecified kb Forms: - Medication Reconciliation Form kb - SBAR form kb Signatures: Dispatcher [employer] EDDannielle Moraes, PROMPT CARE RN-C PROMPT CARE RN-Meg López RN RN eb1 Regla Lin tw5 Iesha Barbour tk1 Corrections: (The following items were deleted from the chart) 07/26 00:21 00:16 kb eb1
--- NOTE | 2021-07-26 00:21 | P.HP ---
Certification for Inpatient Patient admitted to: Observation With expected LOS: <2 Midnights Patient will require the following post-hospital care: None Practitioner: I am a practitioner with admitting privileges, knowledge of patient current condition, hospital course, and medical plan of care. Services: Services provided to patient in accordance with Admission requirements found in Title 42 Section 412.3 of the Code of Federal Regulations Patient History Date of Service: 07/26/21 Primary Care Provider: Yovani ag Reason for admission: Chest pain History of Present Illness: 56-year-old male with history of CAD, COPD, hypertension, hyperlipidemia, GERD, hypothyroidism presents emergency room for chest pain. Patient reports intermittent chest pain substernal nonradiating described as sharp/stabbing associated with some mild shortness of breath as well as dyspnea on exertion over the course of last 2 days. Patient reports he had similar symptoms prior to his STEMI in 2018. 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 Patient was evaluated here in the emergency department his initial troponin is negative his EKG was without ST elevation or depressions chest x-ray unremarkable other labs also unremarkable ED prior wishes to admit for ACS rule out. Allergies No Known Allergies Allergy (Verified 04/19/19 16:57) Home Medications: Aspirin Chewable [Aspirin Chewable*] 1 tab PO DAILY 05/24/19 Atorvastatin Calcium [Lipitor] 1 tab PO DAILY 05/24/19 Clopidogrel Bisulfate [Plavix*] 1 tab PO DAILY 05/24/19 Isosorbide Mononitrate [Isosorbide Mononitrate ER] 1 tab PO DAILY 05/24/19 carvediloL [Coreg*] 1 tab PO BID 05/24/19 lisinopriL [Lisinopril] 1 tab PO DAILY 05/24/19 Amoxicillin/Potassium Clav [Augmentin 875-125 Tablet] 1 each PO BID #14 tablet 05/26/19 Benzonatate [Tessalon Perle] 100 mg PO TID PRN #15 cap 05/26/19 Budesonide/Formoterol Fumarate [Symbicort 160-4.5 Mcg Inhaler] 2 puff IH BID #1 hfa.aer.ad 05/26/19 Guaifenesin [Mucinex] 600 mg PO BID PRN #15 tab.er.12h 05/26/19 Levalbuterol Tartrate [Levalbuterol Tartrate Hfa] 2 puff IH TID PRN #1 hfa.aer.ad 05/26/19 - Past Medical/Surgical History Diabetic: No -: Coronary artery disease -: Hypertension -: Tobacco abuse -: COPD -: [place] -: Pneumothorax -: Stent x 3 (2016) Psychosocial/ Personal History: Patient lives at home. - Family History Mother -: Heart disease Father -: Kidney disease - Social History Smoking Status: Current every day smoker Counseled patient to stop smoking for: less than 10 minutes Smoking therapy provided: No (Pt declined) Alcohol use: No CD- Drugs: No Caffeine use: Yes Place of Residence: Home Review of Systems 10-point ROS is otherwise unremarkable Respiratory: Shortness of Breath Cardiovascular: Chest Pain Physical Examination - Physical Exam General: Alert, In no apparent distress, Oriented x3 HEENT: Atraumatic, PERRLA, Mucous membr. moist/pink, EOMI, Sclerae nonicteric Neck: Supple, 2+ carotid pulse no bruit, No LAD, Without JVD or thyroid abnormality Respiratory: Clear to auscultation bilaterally, Normal air movement Cardiovascular: Regular rate/rhythm, Normal S1 S2, Systolic murmur Gastrointestinal: Normal bowel sounds, No tenderness Musculoskeletal: No tenderness Integumentary: No rashes Neurological: Normal gait, Normal speech, Normal strength at 5/5 x4 extr, Normal tone, Normal affect Lymphatics: No axilla or inguinal lymphadenopathy - Studies Laboratory Data (last 24 hrs) 07/25/21 23:16: PT 10.1, INR 0.88 07/25/21 23:16: WBC 8.40, Hgb 14.5, Hct 43.4, Plt Count 169 07/25/21 23:16: Sodium 139, Potassium 4.3, BUN 20 H, Creatinine 0.84, Glucose 118 H, Magnesium 2.1, Total Bilirubin 0.2, AST 25, ALT 40, Alkaline Phosphatase 91 Assessment and Plan - Plan Assessment: Chest pain, POPE history of CAD rule out ACS Hypertension hyperlipidemia Hypothyroidism COPD COVID+ Plan: Chest pain, POPE history of CAD rule out ACS: Patient reports stress test approximately 1 year ago was negative had angiogram at [facility] last year in August and states he was told that 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 Patient was with told at that time there is nothing they could do about it and to follow-up with his primary care doctor. Will monitor on telemetry, trend troponins, cardiology has been consulted. Continue medications, aspirin, statin, beta-justine, Plavix. Hypertension: Continue home medications hyperlipidemia:Continue home medications Hypothyroidism:Continue home medications COPD:Continue home medications nebulizer treatments as needed COVID+: Patient is vaccinated, not hypoxic will obtain CRP level with morning labs. DVT PPX: Lovenox Code status: Full Discharge Plan: Home Plan to discharge in: 24 Hours - Advance Directives Does patient have a Living Will: Yes Does patient have a Durable POA for Healthcare: No - Code Status/Comfort Care Code Status Assessed: Yes (full code) Critical Care: No Time Spent Managing Pts Care (In Minutes): 55
[2021-07-26] MEDS ORDERED: ONDANSETRON 4 MG/2 ML VIAL IV PRN (01:31)
[2021-07-26] MEDS ORDERED: MELATONIN 5 MG TABLET PO PRN (02:19)
[2021-07-26 02:22] VITALS: BMI 25.0
[2021-07-26 05:12] LABS: HDL Cholesterol 36 mg/dL (40-60); LDL Cholesterol, Calculated 65 (<130)
[2021-07-26 05:18] LABS: C-Reactive Protein < 2.90 mg/L (<3.00)
[2021-07-26] MEDS ORDERED: METOPROLOL XL 25 MG TAB PO SCH (06:00)
--- NOTE | 2021-07-26 07:36 | RAD REPORT ---
EXAM DESCRIPTION: RAD - Chest Single View - 07/26/2021 12:07 am CLINICAL HISTORY: CHEST PAIN COMPARISON: Chest Single View dated 08/15/2019; Chest Single View dated 07/26/2019; Chest Single View d ated 05/24/2019; Chest Single View dated 04/19/2019 FINDINGS: Lines: None. Lungs: No evidence of edema or pneumonia. Pleural: No significant pleural effusions or pneumothorax. Cardiac: The heart size is within normal limits. Bones: No acute fractures. Other: IMPRESSION: No acute cardiopulmonary disease.
[2021-07-26 08:43] VITALS: O2SAT 95
[2021-07-26] MEDS ORDERED: ENOXAPARIN 40 MG/0.4 ML SQ SCH (09:00)
[2021-07-26] MEDS ORDERED: lisinopriL 10 MG TAB PO SCH ×2 (09:00→21:00)
[2021-07-26] MEDS ORDERED: ASPIRIN EC 81 MG TAB PO SCH ×2 (09:00→21:00)
[2021-07-26] MEDS ORDERED: CLOPIDOGREL 75 MG TABLET PO SCH ×2 (09:00→21:00)
[2021-07-26 10:21] LABS: Urine Appearance CLEAR (Clear); Urine Bilirubin NEGATIVE (Negative); Urine Blood NEGATIVE (Negative); Urine Color YELLOW (Yellow); Urine Glucose NEGATIVE (Negative); Urine Protein NEGATIVE (Negative); Urine Urobilinogen 0.2 mg/dL (0.2-1.0)
[2021-07-26 10:24] LABS: Urine Microscopic Reflex NO UMIC
[2021-07-26 16:26] VITALS: BP 110/71; TEMP 98.5
[2021-07-26] MEDS ORDERED: ATORVASTATIN 80 MG TAB PO SCH (21:00)
--- NOTE | 2021-07-26 21:10 | CON ---
Date of Consultation: 07/26/2021 Reason For Consultation: Chest pain. History Of Present Illness: A 56-year-old male with history of coronary artery disease, COPD, hypert ension, dyslipidemia, acid reflux, hypothyroidism, presented with chest pain, intermittent, nonradiat ing, stabbing type. No diaphoresis, nausea, vomiting. Had similar episodes in the past. Had a stre ss test about a year ago, was normal. Had a left heart catheterization in August of last year as per his report. Also, that he has coronary aneurysm but there was no other significant muñiz ry artery disease and recommended Past Medical History: As outlined above in the HPI. Medications: Refer reconciliation sheet for detailed list. Allergies: NO KNOWN DRUG ALLERGIES. Family History: No mature coronary artery disease or cancer. Social History: He is an active smoker. Does not drink or use any drugs. Review of Systems: All systems reviewed, they were negative except for mentioned in HPI. Physical Examination: Vital signs: Reviewed. Head and Neck: Pupils are equal, reactive to light. Intact eye movements. No JVD. No cervical lym phadenopathy. Neck: Supple. Thyroid is not enlarged. Lungs: Clear to auscultation bilaterally. No rhonchi, rales, or crackles. No accessory muscle use. Heart: Regular rate and rhythm. No extra sounds. Abdomen: Soft, nontender. Bowel sounds positive. No organomegaly. No masses or hernia. No rigidi ty or rebound. Extremities: No clubbing or cyanosis. Intact pulses. Skin: No rashes. Neurologic: Alert, awake, oriented x3. No acute focal deficits appreciated. Investigations: Three highly sensitive troponins were all negative. Creatinine is 0.84, and he is p ositive for COVID. Assessment And Recommendation: Chest pain. Negative troponin. Positive COVID. This is likely nonc ardiac. It is atypical in features and as per his report, he follows with resident associate and had a hea rt catheterization recommend no further cardiac workup as an inpatient and post discharge, the patient is to follow up with his own resident associate to evaluate the need for further ischemic work up like a stress test if needed, which can be arranged for as an outpatient. Thank you for the consult. SR/MODL Voice ID: [id number] Report ID: [id number]
== END 2021-07-26 18:35 | disposition home or self-care (01) ==
LOC: ER 22:23 → ERHOLD 07-26 00:14 → 4TH 07-26 00:37
PROVIDERS: ADMIT Hospitalist; ATTEND Hospitalist
DX: R07.9 Chest pain, unspecified (principal); U07.1 COVID-19; I25.10 Atherosclerotic heart disease of native coronary artery without angina pectoris; J44.9 Chronic obstructive pulmonary disease, unspecified; I10 Essential (primary) hypertension; E78.5 Hyperlipidemia, unspecified; I25.41 Coronary artery aneurysm; R01.1 Cardiac murmur, unspecified; I25.2 Old myocardial infarction; K21.9 Gastro-esophageal reflux disease without esophagitis; E03.9 Hypothyroidism, unspecified; F17.210 Nicotine dependence, cigarettes, uncomplicated; Z71.6 Tobacco abuse counseling; Z79.02 Long term (current) use of antithrombotics/antiplatelets; Z79.82 Long term (current) use of aspirin; Z79.899 Other long term (current) drug therapy; Z82.49 Family history of ischemic heart disease and other diseases of the circulatory system; Z84.1 Family history of disorders of kidney and ureter
CPT/HCPCS: 36415; 71045; 80048; 80061; 80076; 81003; 83735; 83880; 84484; 85025; 85610; 86140; 93005; 99285; G0378; J1650; U0003

== ENCOUNTER 2021-09-30 21:12 | Emergency (ER) | payer SELFPAY ==
--- OUTSIDE RECORDS SUMMARY | 2021-09-30 21:22 | XMS REPORT | Continuity of Care Document ---
:1965 Author Organization [facility] t Address [address] [place] [address] Care Team Providers Name Role Phone CATHLEEN [...] Clinician Unavailable TOÑO ODELL Attending Clinician Unavailable Mikal WHITESIDE Attending Clinician Unavailable Mikal Jaramillo Attending Clinician ALVAREZ Attending Clinician Unavailable Kadi Card Attending Clinician MILVIA Attending Clinician Unavailable MARY NARANJO Admitting Clinician Unavailable Mikal WHITESIDE Admitting Clinician Unavailable ALVAREZ Admitting Clinician Unavailable MILVIA Admitting Clinician Unavailable Payers Payer Name Policy Type Policy Number Effective Date Expiration Date Mikal [employer] [id number] 2017 00:00:00 Problems Condition Condition Condition Status Onset Resolution Last Treating Co mments Source Name Details Category Date Date Treatment Clinician Date Chest pain Chest pain Disease Active U nivers 1-10 ity of 00:00: [place] 00 [facility] Coronary Coronary Disease Active Unive rs artery artery 6-14 ity of disease disease 00:00: [place] involving involving 00 Medi [place] [facility] heart heart Essential Essential Disease Active Uni vers hypertensi hypertensi 6-14 it y of on on 00:00: [place] 00 [facility] Tobacco Tobacco Disease Active Univers abuse abuse 6-14 ity of 00:00: [place] 00 [facility] Allergies, Adverse Reactions, Alerts Allergy Allergy Status Severity Reaction(s) Onset Inactive Treating Comm ents Source Name Type Date Date Clinician NO KNOWN Drug Active Univers ALLERGIE Class ity of [facility] Social History Social Habit Start Date Stop Date Quantity Comments Source History of tobacco 1979-11-21 Cigarette Smoker University of use 00:00:00 [facility] Exposure to Not sure Standard of SARS-CoV-2 (event) [facility] Sex Assigned At Universit y of [facility] Cigarettes smoked 2019-11-05 2019-11-05 Univers ity of current (pack per 00:00:00 00:00:00 ) - Reported Branch Cigarette 2019-11-05 2019-11-05 University of pack-years 00:00:00 00:00:00 [facility] Alcohol intake 2019-11-05 2019-11-05 Ex-drinker University of 00:00:00 00:00:00 (finding) [facility] Tobacco use and 2019-11-05 2019-11-05 Never used Universit y of exposure 00:00:00 00:00:00 [facility] Tobacco Comment 2019-08-24 2019-08-24 currently down Unive rsity of 00:00:00 00:00:00 to 1 cigg a day [place] Med ical 08/24/19 Branch Alcohol Comment 2017-11-20 2017-11-20 SOCIAL Universit y of 00:00:00 00:00:00 [facility] Smoking Status Start Date Stop Date Source Current every day smoker 2019-11-05 00:00:[address] [facility] Medications Ordered Filled Start Stop Current Ordering Indication Dosage Frequency Signature Comments Components Source Medication Medication Date Date Medication? Clinician (SIG) Name Name [id number] 50 2019-06 Yes [id number] TAKE 1 Univers mcg tablet 0-13 TABLET BY ity of 00:00: MOUTH ONCE 00 DAILY IN Medical THE Branch MORNING ISOSORBIDE 2020-1 Yes [id number] Take 1 Univers MONONITRATE 0-13 tablet by ity of 30 mg 24 hr 00:00: mouth once [place] tablet 00 daily Medical Branch LISINOPRIL 2020-1 Yes [id number] Take 1 Univers 10 mg 0-13 tablet by ity of tablet 00:00: mouth once 00 daily Medical Branch CLOPIDOGREL 2020-1 Yes [id number] Take 1 Univers 75 mg 0-13 tablet by ity of tablet 00:00: mouth once [place] daily Medical Branch ATORVASTATI 2019-1 Yes [id number] 80mg TAKE 1 Univers N 80 mg 0-13 TABLET BY ity of tablet 00:00: MOUTH AT [place] BEDTIME Medical Branch METOPROLOL 2019-1 Yes TAKE [...] Medica l HOURS Branch ATORVASTATI 2020-0 Yes [id number] 80mg TAKE 1 Univers N 80 mg 9-08 TABLET BY ity of tablet 00:00: MOUTH AT [place] BEDTIME Medical Branch LISINOPRIL 2020-0 Yes [id number] Take 1 Univers 10 mg 9-08 tablet by ity of tablet 00:00: mouth once [place] daily Medical Branch ISOSORBIDE 2020-0 Yes [id number] Take 1 Univers MONONITRATE 9-08 tablet by ity of 30 mg 24 hr 00:00: mouth once [place] tablet 00 daily Medical Branch EUTHYROX 50 2020-0 Yes [id number] TAKE 1 Univers mcg tablet 9-08 TABLET BY ity of 00:00: MOUTH ONCE [place] DAILY IN [facility] [place] MORNING CLOPIDOGREL 2020-0 Yes [id number] Take 1 Univers 75 mg 9-08 tablet by ity of tablet 00:00: mouth once daily Medical Branch ATORVASTATI 2020-0 Yes [id number] 80mg TAKE 1 Univers N 80 mg 9-08 TABLET BY ity of tablet 00:00: MOUTH AT [place] BEDTIME [facility] Branch LISINOPRIL 2020-0 Yes [id number] Take 1 Univers 10 mg 9-08 tablet by ity of tablet 00:00: mouth once daily Medical Branch ISOSORBIDE 2020-0 Yes [id number] Take 1 Univers MONONITRATE 9-08 tablet by ity of 30 mg 24 hr 00:00: mouth once [place] tablet daily Medical Branch EUTHYROX 50 2020-0 Yes [id number] TAKE 1 Univers mcg tablet 9-08 TABLET BY ity of 00:00: MOUTH ONCE DAILY IN [facility] MORNING CLOPIDOGREL 2020-0 Yes [id number] Take 1 Univers 75 mg 9-08 tablet by ity of tablet 00:00: mouth once daily Medical Branch ATORVASTATI 2020-0 Yes [id number] 80mg TAKE 1 Univers N 80 mg 9-08 TABLET BY ity of tablet 00:00: [address]OUTH [address] [facility] LISINOPRIL 2020-0 Yes [id number] Take 1 Univers 10 mg 9-08 tablet by ity of tablet 00:00: mouth once daily Medical Branch ISOSORBIDE 2020-0 Yes [id number] Take 1 Univers MONONITRATE 9-08 tablet by ity of 30 mg 24 hr 00:00: mouth once [place] tablet 00 daily Medical Branch EUTHYROX 50 2020-0 Yes [id number] TAKE 1 Univers mcg tablet 9-08 TABLET BY ity of 00:00: MOUTH ONCE [place] DAILY IN Medical THE Branch MORNING CLOPIDOGREL 2020-0 Yes [id number] Take 1 Univers 75 mg 9-08 tablet by ity of tablet 00:00: mouth once daily Medical Branch ATORVASTATI 2020-0 Yes [id number] 80mg TAKE 1 Univers N 80 mg 9-08 TABLET BY ity of tablet 00:00: MOUTH AT [place] BEDTIME Medical Branch LISINOPRIL 2020-0 Yes [id number] Take 1 Univers 10 mg 9-08 tablet by ity of tablet 00:00: mouth once [place] daily Medical Branch ISOSORBIDE 2020-0 Yes [id number] Take 1 Univers MONONITRATE 9-08 tablet by ity of 30 mg 24 hr 00:00: mouth once [place] tablet 00 daily Medical Branch EUTHYROX 50 2020-0 Yes [id number] TAKE 1 Univers mcg tablet 9-08 TABLET BY ity of 00:00: MOUTH ONCE DAILY IN Medical THE Branch MORNING CLOPIDOGREL 2020-0 Yes [id number] Take 1 Univers 75 mg 9-08 tablet by ity of tablet 00:00: mouth once daily Medical Branch ATORVASTATI 2020-0 Yes [id number] 80mg TAKE 1 Univers N 80 mg 9-08 TABLET BY ity of tablet 00:00: MOUTH AT [place] BEDTIME Medical Branch LISINOPRIL 2020-0 Yes [id number] Take 1 Univers 10 mg 9-08 tablet by ity of tablet 00:00: mouth once daily Medical Branch ISOSORBIDE 2020-0 Yes [id number] Take 1 Univers MONONITRATE 9-08 tablet by ity of 30 mg 24 hr 00:00: mouth once [place] tablet 00 daily Medical Branch EUTHYROX 50 2020-0 Yes [id number] TAKE 1 Univers mcg tablet 9-08 TABLET BY ity of 00:00: MOUTH ONCE DAILY IN Medical THE Branch MORNING CLOPIDOGREL 2020-0 Yes [id number] Take 1 Univers 75 mg 9-08 tablet by ity of tablet 00:00: mouth once daily Medical Branch ATORVASTATI 2020-0 2020- No [id number] 80mg TAKE 1 Univers N 80 mg 9-08 10-13 TABLET BY ity of tablet 00:00: 00:00 MOUTH AT [place] 00 :00 BEDTIME Medical Branch LISINOPRIL 2020-0 2020- No [id number] Take 1 Univers 10 mg 9-08 10-13 tablet by ity of tablet 00:00: 00:00 [place] 00 :[place] daily [facility] ISOSORBIDE 2020-0 2020- No [id number] Take 1 Univers MONONITRATE 9-08 10-13 tablet by it y of 30 mg 24 hr 00:00: 00:00 mouth once [place] tablet 00 :00 daily Medical Branch EUTHYROX 50 2020-0 2020- No [id number] TAKE 1 Univers mcg tablet 02-14- TABLET BY ity of 00:00: 00:00 MOUTH ONCE [place] 00 :00 DAILY IN Medical THE Branch MORNING CLOPIDOGREL 2020-0 2020- No [id number] Take 1 Univers 75 mg - 10- tablet by ity of tablet 00:00: 00:00 [...] Medica l HOURS Branch LISINOPRIL 2020-0 Yes [id number] Take 1 Univers 10 mg 8-03 tablet by ity of tablet 00:00: mouth once daily Medical Branch ATORVASTATI 2020-0 Yes [id number] 80mg TAKE 1 Univers N 80 mg 8-03 TABLET BY ity of tablet 00:00: MOUTH AT [place] 00 BEDTIME Medical Branch EUTHYROX 50 2020-0 Yes [id number] TAKE 1 Univers mcg tablet 8-03 TABLET BY ity of 00:00: MOUTH ONCE [place] 00 DAILY IN Medical THE Branch MORNING CLOPIDOGREL 2020-0 Yes [id number] Take 1 Univers 75 mg 8-03 tablet by ity of tablet 00:00: mouth once [place] daily Medical Branch METOPROLOL 2020-0 Yes TAKE [...] l HOURS Branch LISINOPRIL 2020-0 2020- No [id number] Take 1 Univers 10 mg 8-08 15-08 tablet by ity of tablet 00:00: 00:[place] mouth [place] 00 :[place] daily [facility] ATORVASTATI 2020-0 2020- No [id number] 80mg TAKE 1 Univers N 80 mg 8-08 15-08 TABLET BY ity of tablet 00:00: 00:00 MOUTH AT [place] 00 :00 BEDTIME Medical Branch EUTHYROX 50 2020-0 2020- No [id number] TAKE 1 Univers mcg tablet 01-09- TABLET BY ity of 00:00: 00:00 MOUTH ONCE [place] 00 :00 DAILY IN Medical THE Branch MORNING CLOPIDOGREL 2020-0 2020- No [id number] Take 1 Univers 75 mg 8-08 15-08 tablet by ity of tablet 00:00: 00:00 mouth once [place] 00 :[place] daily [facility] LISINOPRIL 2020-0 2020- No [id number] Take 1 Univers 10 mg 8-08 15-08 tablet by ity of tablet 00:00: 00:00 mouth once [place] 00 :00 daily [facility] ATORVASTATI 2020-0 2020- No [id number] 80mg TAKE 1 Univers N 80 mg 01-09-08 TABLET BY ity of tablet 00:00: 00:00 MOUTH AT [place] 00 :00 BEDTIME Medical Branch EUTHYROX 50 2020-0 2020- No [id number] TAKE 1 Univers mcg tablet 01-09- TABLET BY ity of 00:00: 00:00 MOUTH ONCE [place] 00 :00 DAILY IN Medical THE Branch MORNING CLOPIDOGREL 2020-0 2020- No [id number] Take 1 Univers 75 mg -08 15-08 tablet by ity of tablet 00:00: 00:00 mouth once [place] 00 :[place] daily [facility] ATORVASTATI 2020-0 Yes [id number] 80mg TAKE 1 Univers N 80 mg 7-08 TABLET BY ity of tablet 00:00: MOUTH AT [place] 00 BEDTIME Medical Branch LISINOPRIL 2020-0 Yes [id number] Take 1 Univers 10 mg 7-08 tablet by ity of tablet 00:00: mouth once [place] 00 daily Medical Branch CLOPIDOGREL 2020-0 Yes [id number] Take 1 Univers 75 mg 7-08 tablet by ity of tablet 00:00: mouth once [place] daily Medical Branch LISINOPRIL 2020-0 Yes [id number] Take 1 Univers 10 mg 7-08 tablet by ity of tablet 00:00: mouth once [place] 00 daily Medical Branch LISINOPRIL 2020-0 Yes [id number] Take 1 Univers 10 mg 7-08 tablet by ity of tablet 00:00: mouth once [place] 00 daily Medical Branch CLOPIDOGREL 2020-0 Yes [id number] Take 1 Univers 75 mg 7-08 tablet by ity of tablet 00:00: mouth once [place] 00 daily Medical Branch ATORVASTATI 2020-0 Yes [id number] 80mg TAKE 1 Univers N 80 mg 7-08 TABLET BY ity of tablet 00:00: MOUTH AT [place] 00 BEDTIME Medical Branch LISINOPRIL 2020-0 Yes [id number] Take 1 Univers 10 mg 7-08 tablet by ity of tablet 00:00: mouth once [place] 00 daily Medical Branch CLOPIDOGREL 2020-0 Yes [id number] Take 1 Univers 75 mg 7-08 tablet by ity of tablet 00:00: mouth once [place] 00 daily Medical Branch ATORVASTATI 2020-0 2020- No [id number] 80mg TAKE 1 Univers N 80 mg 7-08 08-03 TABLET BY ity of tablet 00:00: 00:00 MOUTH AT [place] 00 :00 BEDTIME Medical Branch LISINOPRIL 2020-0 2020- No [id number] Take 1 Univers 10 mg 7-08 08-03 tablet by ity of tablet 00:00: 00:00 mouth [place] 00 :00 daily [facility] Branch CLOPIDOGREL 2020-0 2020- No [id number] Take 1 Univers 75 mg 7-08 08-03 tablet by ity of tablet 00:00: 00:00 mouth once [place] 00 :00 daily [facility] Branch aspirin 81 2020-0 Yes [id number] 81mg Take 81 mg Univers mg EC 5-29 by mouth ity of tablet 18:16: daily. [place] 28 Medical Branch budesonide- 2020-0 Yes 2{puff} Inhale 2 Univers formoterol 5-29 Puffs 2 ity of (SYMBICORT) 18:16: (two) [place] 160-4.5 28 times Medical mcg/actuati daily. Branch on inhaler levalbutero 2020-0 Yes 1{puff} Inhale 1-2 Univers l 45 5-29 Puffs 3 ity of mcg/actuati 18:16: (three) [place] on inhaler 28 times Medical daily as Branch needed for Wheezing. aspirin 81 2020-0 Yes [id number] 81mg Take 81 mg Univers mg EC 5-29 by mouth ity of tablet 18:16: daily. [address] budesonide- 2019-0 Yes 2{puff} Inhale 2 Univers formoterol 5-29 Puffs 2 ity of (SYMBICORT) 18:16: (two) [place] 160-4.5 28 times Medical mcg/actuati daily. Branch on inhaler levalbutero 2020-0 Yes 1{puff} Inhale 1-2 Univers l 45 5-29 Puffs 3 ity of mcg/actuati 18:16: (three) [place] on inhaler 28 times Medical daily as Branch needed for Wheezing. aspirin 81 2020-0 Yes [id number] 81mg Take 81 mg Univers mg EC 5-29 by mouth ity of tablet 18:16: daily. [address] budesonide- 2019-0 Yes 2{puff} Inhale 2 Univers formoterol 5-29 Puffs 2 ity of (SYMBICORT) 18:16: (two) [place] 160-4.5 28 times Medical mcg/actuati daily. Branch on inhaler levalbutero 2019-0 Yes 1{puff} Inhale 1-2 Univers l 45 5-29 Puffs 3 ity of mcg/actuati 18:16: (three) [place] on inhaler 28 times Medical daily as Branch needed for Wheezing. aspirin 81 2020-0 Yes [id number] 81mg Take 81 mg Univers mg EC 5-29 by mouth ity of tablet 18:16: daily. [address] budesonide- 2019-0 Yes 2{puff} Inhale 2 Univers formoterol 5-29 Puffs 2 ity of (SYMBICORT) 18:16: (two) [place] 160-4.5 28 times Medical mcg/actuati daily. Branch on inhaler levalbutero 2020-0 Yes 1{puff} Inhale 1-2 Univers l 45 5-29 Puffs 3 ity of mcg/actuati 18:16: (three) [place] on inhaler 28 times Medical daily as Branch needed for Wheezing. aspirin 81 2020-0 Yes [id number] 81mg Take 81 mg Univers mg EC 5-29 by mouth ity of tablet 18:16: daily. [address] budesonide- 2019-0 Yes 2{puff} Inhale 2 Univers formoterol 5-29 Puffs 2 ity of (SYMBICORT) 18:16: (two) [place] 160-4.5 28 times Medical mcg/actuati daily. Branch on inhaler levalbutero 2019- Yes 1{puff} Inhale 1-2 Univers l 45 5-29 Puffs 3 ity of mcg/actuati 18:16: (three) [place] on inhaler 28 times Medical daily as Branch needed for Wheezing. aspirin 81 2020-0 Yes [id number] 81mg Take 81 mg Univers mg EC 5-29 by mouth ity of tablet 18:16: daily. [address] budesonide- Yes 2{puff} Inhale 2 Univers formoterol 5-29 Puffs 2 ity of (SYMBICORT) 18:16: (two) [place] 160-4.5 28 times Medical mcg/actuati daily. Branch on inhaler levalbutero 2019- Yes 1{puff} Inhale 1-2 Univers l 45 5-29 Puffs 3 ity of mcg/actuati 18:16: (three) [place] on inhaler 28 times Medical daily as Branch needed for Wheezing. aspirin 81 2020-0 Yes [id number] 81mg Take 81 mg Univers mg EC 5-29 by mouth ity of tablet 18:16: daily. [address] budesonide- Yes 2{puff} Inhale 2 Univers formoterol 5-29 Puffs 2 ity of (SYMBICORT) 18:16: (two) [place] 160-4.5 28 times Medical mcg/actuati daily. Branch on inhaler levalbutero 2019- Yes 1{puff} Inhale 1-2 Univers l 45 5-29 Puffs 3 ity of mcg/actuati 18:16: (three) [place] on inhaler 28 times Medical daily as Branch needed for Wheezing. aspirin 81 2020-0 Yes [id number] 81mg Take 81 mg Univers mg EC 5-29 by mouth ity of tablet 18:16: daily. [address] budesonide- 2019- Yes 2{puff} Inhale 2 Univers formoterol 5-29 Puffs 2 ity of (SYMBICORT) 18:16: (two) [place] 160-4.5 28 times Medical mcg/actuati daily. Branch on inhaler levalbutero 2020-0 Yes 1{puff} Inhale 1-2 Univers l 45 5-29 Puffs 3 ity of mcg/actuati 18:16: (three) [place] on inhaler 28 times Medical daily as Branch needed for Wheezing. aspirin 81 2020-0 Yes [id number] 81mg Take 81 mg Univers mg EC 5-29 by mouth ity of tablet 18:16: daily. [place] [address] Medical Branch budesonide- 2019-0 Yes 2{puff} Inhale 2 Univers formoterol 5-29 Puffs 2 ity of (SYMBICORT) 18:16: (two) [place] 160-4.5 28 times Medical mcg/actuati daily. Branch on inhaler levalbutero 2019-0 Yes 1{puff} Inhale 1-2 Univers l 45 5-29 Puffs 3 ity of mcg/actuati 18:16: (three) [place] on inhaler 28 times Medical daily as Branch needed for Wheezing. aspirin 81 2020-0 Yes [id number] 81mg Take 81 mg Univers mg EC 5-29 by mouth ity of tablet 18:16: daily. [place] [address] Medical Branch budesonide- 2019-0 Yes 2{puff} Inhale 2 Univers formoterol 5-29 Puffs 2 ity of (SYMBICORT) 18:16: (two) [place] 160-4.5 28 times Medical mcg/actuati daily. Branch on inhaler levalbutero 2019-0 Yes 1{puff} Inhale 1-2 Univers l 45 5-29 Puffs 3 ity of mcg/actuati 18:16: (three) [place] on inhaler 28 times Medical daily as Branch needed for Wheezing. aspirin 81 2020-0 Yes [id number] 81mg Take 81 mg Univers mg EC 5-29 by mouth ity of tablet 18:16: daily. [place] [address] Medical Branch budesonide- 2019-0 Yes 2{puff} Inhale 2 Univers formoterol 5-29 Puffs 2 ity of (SYMBICORT) 18:16: (two) [place] 160-4.5 28 times Medical mcg/actuati daily. Branch on inhaler levalbutero 2019-0 Yes 1{puff} Inhale 1-2 Univers l 45 5-29 Puffs 3 ity of mcg/actuati 18:16: (three) [place] on inhaler 28 times Medical daily as Branch needed for Wheezing. aspirin 81 2020-0 Yes [id number] 81mg Take 81 mg Univers mg EC 5-29 by mouth ity of tablet 18:16: daily. [address] budesonide- Yes 2{puff} Inhale 2 Univers formoterol 5-29 Puffs 2 ity of (SYMBICORT) 18:16: (two) [place] 160-4.5 28 times Medical mcg/actuati daily. Branch on inhaler levalbutero Yes 1{puff} Inhale 1-2 Univers l 45 5-29 Puffs 3 ity of mcg/actuati 18:16: (three) [place] on inhaler 28 times Medical daily as Branch needed for Wheezing. aspirin 81 2020-0 Yes [id number] 81mg Take 81 mg Univers mg EC 5-29 by mouth ity of tablet 18:16: daily. [address] budesonide- Yes 2{puff} Inhale 2 Univers formoterol 5-29 Puffs 2 ity of (SYMBICORT) 18:16: (two) [place] 160-4.5 28 times Medical mcg/actuati daily. Branch on inhaler levalbutero Yes 1{puff} Inhale 1-2 Univers l 45 5-29 Puffs 3 ity of mcg/actuati 18:16: (three) [place] on inhaler 28 times Medical daily as Branch needed for Wheezing. aspirin 81 2019-0 Yes [id number] 81mg Take 81 mg Univers mg EC 5-29 by mouth ity of tablet 18:16: daily. [address] budesonide- Yes 2{puff} Inhale 2 Univers formoterol 5-29 Puffs 2 ity of (SYMBICORT) 18:16: (two) [place] 160-4.5 28 times Medical mcg/actuati daily. Branch on inhaler levalbutero Yes 1{puff} Inhale 1-2 Univers l 45 5-29 Puffs 3 ity of mcg/actuati 18:16: (three) [place] on inhaler 28 times Medical daily as Branch needed for Wheezing. ISOSORBIDE Yes [id number] Take 1 Univers MONONITRATE 5-18 07 tablet by ity of 30 mg 24 hr 00:00: mouth once [place] tablet 00 daily Medical Branch ISOSORBIDE 2020-0 2020- No [id number] Take 1 Univers MONONITRATE 5-18 05-29 07 tablet by it y of 30 mg 24 hr 00:00: 00:00 mouth once [place] tablet 00 :00 daily Medical Branch ISOSORBIDE 2020-0 2020- No [id number] Take 1 Univers MONONITRATE 5-18 05-29 07 tablet by it y of 30 mg 24 hr 00:00: 00:00 mouth once [place] tablet 00 :00 daily Medical Branch isosorbide 2020-0 Yes [id number] TAKE 1 Univers mononitrate 5-14 TABLET BY ity of 30 mg 24 hr 00:00: MOUTH ONCE [place] tablet 00 DAILY Medical Branch isosorbide 2020-0 Yes [id number] TAKE 1 Univers mononitrate 5-14 TABLET BY [...] Medica l HOURS Branch isosorbide 2020-0 Yes [id number] TAKE 1 Univers mononitrate 5-14 07 TABLET BY ity of 30 mg 24 hr 00:00: MOUTH ONCE [place] tablet 00 DAILY Medical Branch METOPROLOL 2020-0 Yes TAKE 1 Unive rs SUCCINATE 5-14 TABLET BY ity o f XL 25 mg 24 00:00: MOUTH [place] hr tablet 00 EVERY 12 Medica l HOURS Branch isosorbide 2020-0 Yes [id number] TAKE 1 Univers mononitrate 5-14 07 TABLET BY ity of 30 mg 24 hr 00:00: MOUTH ONCE [place] tablet 00 DAILY Medical Branch METOPROLOL 2020-0 Yes TAKE 1 Unive rs SUCCINATE 5-14 TABLET BY ity o f XL 25 mg 24 00:00: MOUTH [place] hr tablet 00 EVERY 12 Medica l HOURS Branch isosorbide 2020-0 Yes [id number] TAKE 1 Univers mononitrate 5-14 07 TABLET BY ity of 30 mg 24 hr 00:00: MOUTH ONCE [place] tablet 00 DAILY Medical Branch METOPROLOL 2020-0 Yes TAKE 1 Unive rs SUCCINATE 5-14 TABLET BY ity o f XL 25 mg 24 00:00: MOUTH [place] hr tablet 00 EVERY 12 Medica l HOURS Branch isosorbide 2020-0 Yes [id number] TAKE 1 Univers mononitrate 5-14 07 TABLET BY ity of 30 mg 24 hr 00:00: MOUTH ONCE [place] tablet 00 DAILY Medical Branch METOPROLOL 2020-0 Yes TAKE 1 Unive rs SUCCINATE 5-14 TABLET BY ity o f XL 25 mg 24 00:00: MOUTH [place] hr tablet 00 EVERY 12 Medica l HOURS Branch isosorbide 2020-0 Yes [id number] TAKE 1 Univers mononitrate 5-14 07 TABLET BY ity of 30 mg 24 hr 00:00: MOUTH ONCE [place] tablet 00 DAILY Medical Branch METOPROLOL 2020-0 Yes TAKE 1 Unive rs SUCCINATE 5-14 TABLET BY ity o f XL 25 mg 24 00:00: MOUTH [place] hr tablet 00 EVERY 12 Medica l HOURS Branch isosorbide 2020-0 Yes [id number] TAKE 1 Univers mononitrate 5-14 07 TABLET BY ity of 30 mg 24 hr 00:00: MOUTH ONCE [place] tablet 00 DAILY Medical Branch METOPROLOL 2020-0 Yes TAKE 1 Unive rs SUCCINATE 5-14 TABLET BY ity o f XL 25 mg 24 00:00: MOUTH [place] hr tablet 00 EVERY 12 Medica l HOURS Branch isosorbide 2020-0 Yes [id number] TAKE 1 Univers mononitrate 5-14 07 TABLET BY ity of 30 mg 24 hr 00:00: MOUTH ONCE [place] tablet 00 DAILY Medical Branch METOPROLOL 2020-0 Yes TAKE 1 Unive rs SUCCINATE 5-14 TABLET BY ity o f XL 25 mg 24 00:00: MOUTH [place] hr tablet 00 EVERY 12 Medica l HOURS Branch isosorbide 2020-0 Yes [id number] TAKE 1 Univers mononitrate 5-14 TABLET BY ity of 30 mg 24 hr 00:00: MOUTH ONCE [place] tablet 00 DAILY Medical Branch METOPROLOL 2020-0 Yes TAKE 1 Unive rs SUCCINATE 5-14 TABLET BY ity o f XL 25 mg 24 00:00: MOUTH [place] hr tablet 00 EVERY 12 Medica l HOURS Branch isosorbide 2020-0 Yes [id number] TAKE 1 Univers mononitrate 5-14 TABLET BY ity of 30 mg 24 hr 00:00: MOUTH ONCE [place] tablet 00 DAILY Medical Branch METOPROLOL 2020-0 Yes TAKE 1 Unive rs SUCCINATE 5-14 TABLET BY ity o f XL 25 mg 24 00:00: MOUTH [place] hr tablet 00 EVERY 12 Medica l HOURS [place] isosorbide 2020-0 Yes [id number] TAKE 1 Univers mononitrate 5-14 TABLET BY ity of 30 mg 24 hr 00:00: MOUTH ONCE [place] tablet 00 DAILY Medical Branch isosorbide 2020-0 2020- No [id number] TAKE 1 Univers mononitrate 5-14 09-08 TABLET BY it y of 30 mg 24 hr 00:00: 00:00 MOUTH ONCE [place] tablet 00 :00 DAILY Medical [place] isosorbide 2020-0 2020- No [id number] TAKE 1 Univers mononitrate 5-14 09-08 TABLET BY it y of 30 mg 24 hr 00:00: 00:00 MOUTH ONCE [place] tablet 00 :00 DAILY [facility] METOPROLOL 2020-0 2020- No TAKE 1 Univ ers SUCCINATE 5-14 08-03 TABLET BY ity of XL 25 mg 24 00:00: 00:00 MOUTH [place] tablet 00 :00 EVERY 12 Medica l HOURS [place] tiotropium 2020-0 Yes [id number] 18ug Inhale 1 Univers 18 mcg 4-16 capsule ity of inhalation 00:00: daily. [place] [facility] tiotropium 2020-0 Yes [id number] 18ug Inhale 1 Univers 18 mcg 4-16 capsule ity of inhalation 00:00: daily. [place] [facility] tiotropium 2020-0 Yes [id number] 18ug Inhale 1 Univers 18 mcg 4-16 capsule ity of inhalation 00:00: daily. [place] [facility] tiotropium 2020-0 Yes [id number] 18ug Inhale 1 Univers 18 mcg 4-16 capsule ity of inhalation 00:00: daily. [place] [facility] tiotropium 2020-0 Yes [id number] 18ug Inhale 1 Univers 18 mcg 4-16 capsule ity of inhalation 00:00: daily. [place] [facility] tiotropium 2020-0 Yes [id number] 18ug Inhale 1 Univers 18 mcg 4-16 capsule ity of inhalation 00:00: daily. [place] [facility] tiotropium 2020-0 Yes [id number] 18ug Inhale 1 Univers 18 mcg 4-16 capsule ity of inhalation 00:00: daily. [place] [facility] tiotropium 2020-0 Yes [id number] 18ug Inhale 1 Univers 18 mcg 4-16 capsule ity of inhalation 00:00: daily. [place] [facility] tiotropium 2020-0 Yes [id number] 18ug Inhale 1 Univers 18 mcg 4-16 capsule ity of inhalation 00:00: daily. [place] [facility] tiotropium 2020-0 Yes [id number] 18ug Inhale 1 Univers 18 mcg 4-16 capsule ity of inhalation 00:00: daily. [place] [facility] tiotropium 2020-0 Yes [id number] 18ug Inhale 1 Univers 18 mcg 4-16 capsule ity of inhalation 00:00: daily. [address] tiotropium 2020-0 Yes [id number] 18ug Inhale 1 Univers 18 mcg 4-16 capsule ity of inhalation 00:00: daily. [address] tiotropium 2020-0 Yes [id number] 18ug Inhale 1 [facility] 18 mcg 4-16 capsule ity of inhalation 00:00: daily. [address] tiotropium 2020-0 Yes [id number] 18ug Inhale 1 [facility] 18 mcg 4-16 capsule ity of inhalation 00:00: daily. [address] tiotropium 2020-0 Yes [id number] 18ug Inhale 1 [facility] 18 mcg 4-16 capsule ity of inhalation 00:00: daily. [address] tiotropium 2020-0 Yes [id number] 18ug Inhale 1 [facility] 18 mcg 4-16 capsule ity of inhalation 00:00: daily. [address] tiotropium 2020-0 Yes [id number] 18ug Inhale 1 [facility] 18 mcg 4-16 capsule ity of inhalation 00:00: daily. [address] tiotropium 2020-0 Yes [id number] 18ug Inhale 1 [facility] 18 mcg 4-16 capsule ity of inhalation 00:00: daily. [address] tiotropium 2020-0 Yes [id number] 18ug Inhale 1 [facility] 18 mcg 4-16 capsule ity of inhalation 00:00: daily. [address] tiotropium 2020-0 Yes [id number] 18ug Inhale 1 [facility] 18 mcg 4-16 capsule ity of inhalation 00:00: daily. [place] 00 [facility] tiotropium 2019-0 Yes [id number] 18ug Inhale 1 [facility] 18 mcg 4-16 capsule ity of inhalation 00:00: daily. [place] [address] Medical Branch ezetimibe 2019- 2020- No [id number] 10mg Take 1 [facility] (ZETIA) 10 08-23 07 tablet by ity of mg tablet 00:00: 04:59 mouth [place] 00 :00 daily for Medical 30 days. Branch ezetimibe 2019- 2020- No [id number] 10mg Take 1 [facility] (ZETIA) 10 08-23 07 tablet by ity of mg tablet 00:00: 04:59 mouth [place] 00 :00 daily for Medical 30 days. [place] ezetimibe 2019-2019- No [id number] 10mg Take 1 [facility] (ZETIA) 10 08-23 07 tablet by ity of mg tablet 00:00: 04:59 mouth [place] 00 :00 daily for Medical 30 days. [place] ezetimibe 2019-2019- No [id number] 10mg Take 1 [facility] (ZETIA) 10 08-23 07 tablet by ity of mg tablet 00:00: 04:59 mouth [place] 00 :00 daily for Medical 30 days. [place] ezetimibe 2019-2019- No [id number] 10mg Take 1 [facility] (ZETIA) 10 08-23 07 tablet by ity of mg tablet 00:00: 04:59 mouth [place] 00 :00 daily for Medical 30 days. [place] ezetimibe 2019-2019- No [id number] 10mg Take 1 [facility] (ZETIA) 10 08-23 07 tablet by ity of mg tablet 00:00: 04:59 mouth [place] 00 :00 daily for Medical 30 days. [place] ketorolac 2019- No 30mg 30 mg, Unive rs (TORADOL) 08-07 Slow IV ity of injection 22:30: 21:52 Push, [place] 30 mg 00 :00 ONCE, 1 Medical dose, Carri [place] 08/08/19 at 1630, KIANNA
Fa culty member approving Restricted medication : Sarah NARANJO ipratropium 2019- No 3mL 3 mL, Univ ers -albuterol 08-07 Inhalation it y of (DUONEB) 21:45: 20:49 , ONCE, 1 [facility]as[facility] as 0.5 mg-3 00 :00 dose, [facility] mg(2.5 mg 08/08/19 at [facility] h base)/3 mL 1545, nebulizer Routine solution 3 mL methylPREDN 2020-0 Yes [id number] Take by [facility] ISolone 08-07 mouth ity of (MEDROL, 00:00: SEE-INSTRU Qasim as DEREK,) 4 mg 00 CTIONS. Medica l tablets follow Branch package directions methylPREDN 2020-0 Yes [id number] Take by [facility] ISolone 08-07 mouth ity of (MEDROL, 00:00: SEE-INSTRU Qasim as DEREK,) 4 mg 00 CTIONS. Medica l tablets follow Branch package directions methylPREDN 2020-0 Yes [id number] [facility] (MED[facility]OL, 00:00: SEE-INSTRU Qasim as DEREK,) 4 mg 00 CTIONS. Medica l tablets follow Branch package directions methylPREDN 2020-0 Yes [id number] Take by [facility] ISolone 08-07 mouth ity of (MEDROL, 00:00: SEE-INSTRU Qasim as DEREK,) 4 mg 00 CTIONS. Medica l tablets follow Branch package directions methylPREDN 2020-0 Yes [id number] Take by [facility] ISolone 08-07 mouth ity of (MEDROL, 00:00: SEE-INSTRU Qasim as DEREK,) 4 mg 00 CTIONS. Medica l tablets follow Branch package directions methylPREDN 2020-0 Yes [id number] Take by [facility] ISolone 08-07 mouth ity of (MEDROL, 00:00: SEE-INSTRU Qas[place] as DEREK,) 4 mg 00 CTIONS. Medica l tablets follow Branch package directions methylPREDN 2020-0 Yes [id number] Take by [facility] ISolone 08-07 mouth ity of (MEDROL, 00:00: SEE-INSTRU Qasim as DEREK,) 4 mg 00 CTIONS. Medica l tablets follow Branch package directions methylPREDN 2020-0 Yes [id number] Take by [facility] ISolone 08-07 mouth ity of (MEDROL, 00:00: SEE-INSTRU [place]as[place] as DEREK,) 4 mg 00 CTIONS. Medica l tablets follow Branch package directions methylPREDN 2020-0 Yes [id number] [facility] ity of (MEDROL, 00:00: SEE-INSTRU [place] as DEREK,) 4 mg 00 CTIONS. Medica l tablets follow Branch package directions methylPREDN 2020-0 Yes [id number] [facility] ity of (MEDROL, 00:00: SEE-INSTRU [place] as DEREK,) 4 mg 00 CTIONS. Medica l tablets follow Branch package directions methylPREDN 2020-0 Yes [id number] [facility] mouth ity of (MEDROL, 00:00: SEE-INSTRU [place] as DEREK,) 4 mg 00 CTIONS. Medica l tablets follow Branch package directions methylPREDN 2020-0 Yes [id number] [facility] mouth ity of (MEDROL, 00:00: SEE-INSTRU [place] as DEREK,) 4 mg 00 CTIONS. Medica l tablets follow Branch package directions methylPREDN 2020-0 Yes [id number] Take by [facility] 3 mouth ity of (MEDROL, 00:00: SEE-INSTRU Qasim as DEREK,) 4 mg 00 CTIONS. Medica l tablets follow Branch package directions methylPREDN 2020-0 Yes [id number] Take by [facility] 3 mouth ity of (MEDROL, 00:00: SEE-INSTRU Q[place] as DEREK,) 4 mg 00 CTIONS. Medica l tablets follow Branch package directions methylPREDN 2020-0 Yes [id number] [facility] mouth ity of (MEDROL, 00:00: SEE-INSTRU [place] as DEREK,) 4 mg 00 CTIONS. Medica l tablets follow Branch package directions methylPREDN 2020-0 Yes [id number] Take by [facility] 3 mouth ity of (MEDROL, 00:00: SEE-INSTRU Qasim as DEREK,) 4 mg 00 CTIONS. Medica l tablets follow Branch package directions methylPREDN 2020-0 Yes [id number] Take by [facility] ISolone 3-01 mouth ity of (MEDROL, 00:00: SEE-INSTRU [place]as[place] as DEREK,) 4 mg 00 CTIONS. Medica l tablets follow Branch package directions methylPREDN 2020-0 Yes [id number] Take by [facility] ISolone 3-01 mouth ity of (MEDROL, 00:00: SEE-INSTRU [place] as DEREK,) 4 mg 00 CTIONS. Medica l tablets follow Branch package directions methylPREDN 2020-0 Yes [id number] Take by [facility] ISolone 3-01 mouth ity of (MEDROL, 00:00: SEE-INSTRU Qasim as DEREK,) 4 mg 00 CTIONS. Medica l tablets follow Branch package directions methylPREDN 2020-0 Yes [id number] [facility] mouth ity of (MEDROL, 00:00: SEE-INSTRU [place] as DEREK,) 4 mg 00 CTIONS. Medica l tablets follow Branch package directions methylPREDN 2020-0 Yes [id number] Take by [facility] ISolone 3 mouth ity of (MEDROL, 00:00: SEE-INSTRU [place] as DEREK,) 4 mg 00 CTIONS. Medica l tablets follow Branch package directions methylPREDN 2020-0 Yes [id number] [facility] mouth ity of (MEDROL, 00:00: SEE-INSTRU [place] as DEREK,) 4 mg 00 CTIONS. Medica l tablets follow Branch package directions methylPREDN 2020-0 Yes [id number] [facility] mouth ity of (MEDROL, 00:00: SEE-INSTRU [place] as DEREK,) 4 mg 00 CTIONS. Medica l tablets follow Branch package directions methylPREDN 2020-0 Yes [id number] Take by [facility] ISolone 3 mouth ity of (MEDROL, 00:00: SEE-INSTRU [place] as DEREK,) 4 mg 00 CTIONS. Medica l tablets follow Branch package directions methylPREDN 2020-0 Yes [id number] Take by [facility] ISolone 3- mouth ity of (MEDROL, 00:00: SEE-INSTRU [place] as DEREK,) 4 mg 00 CTIONS. Medica l tablets follow Branch package directions methylPREDN 2020-0 Yes [id number] Take by [facility] ISolone 3-01 mouth ity of (MEDROL, 00:00: SEE-INSTRU [place] as DEREK,) 4 mg 00 CTIONS. Medica l tablets follow Branch package directions methylPREDN 2020-0 Yes [id number] Take by [facility] ISolone 3-01 mouth ity of (MEDROL, 00:00: SEE-INSTRU Qasim as DEREK,) 4 mg 00 CTIONS. Medica l tablets follow Branch package directions methylPREDN 2020-0 Yes [id number] Take by [facility] 3 mouth ity of (MEDROL, 00:00: SEE-INSTRU Qasim as DEREK,) 4 mg 00 CTIONS. Medica l tablets follow Branch package directions methylPREDN 2020-0 Yes [id number] Take by [facility] 3- mouth ity of (MEDROL, 00:00: SEE-INSTRU [place] as DEREK,) 4 mg 00 CTIONS. Medica l tablets follow Branch package directions methylPREDN 2020-0 Yes [id number] Take by [facility] 3 mouth ity of (MEDROL, 00:00: SEE-INSTRU Qas[place] as DEREK,) 4 mg 00 CTIONS. Medica l tablets follow Branch package directions methylPREDN 2020-0 Yes [id number] Take by [facility] 3 mouth ity of (MEDROL, 00:00: SEE-INSTRU Qas[place] as DEREK,) 4 mg 00 CTIONS. Medica l tablets follow Branch package directions methylPREDN 2020-0 Yes [id number] Take by [facility] 3 mouth ity of (MEDROL, 00:00: SEE-INSTRU Qas[place] as DEREK,) 4 mg 00 CTIONS. Medica l tablets follow Branch package directions methylPREDN 2020-0 Yes [id number] Take by [facility] 3 mouth ity of (MEDROL, 00:00: SEE-INSTRU [place] as DEREK,) 4 mg 00 CTIONS. Medica l tablets follow Branch package directions methylPREDN 2020-0 Yes [id number] Take by [facility] 3 mouth ity of (MEDROL, 00:00: SEE-INSTRU [...] Until Fri08/04/19 at 0926, Routine FENTanyl PF 2019-0 2020- No Slow IV Un ginny (SUBLIMAZE [...] 1 Branch Cath dose, Starting Fri08/04/19 at 0905, Until Fri08/04/19 at 0905, Routine heparin 2019- No Slow IV Univer s 1,000 08-04 Push, ity of unit/mL 15:05: 15:05 [place] injection 42 :42 FOR Medical PROCEDURE Branch USE, 1 dose, Starting Fri08/04/19 at 0905, Until Fri08/04/19 at 0905, Routine lidocaine 2019- No Infiltrati U nivers 1% (PF) 08-04 on, ity of (XYLOCAINE) 15:01: 15:01 TITRATE - [place] injection 23 :23 FOR Medical PROCEDURE Branch USE, 1 dose, Starting Fri08/04/19 at 0901, Until Fri08/04/19 at 0901, Routine FENTanyl PF 2020- No Slow IV Un ginny (SUBLIMAZE 08-04 Push, ity of (PF)) 14:55: 14:55 TITRATE - [place] injection 09 :09 FOR Medical PROCEDURE Branch USE, 1 dose, Starting 08/04/19 at 0855, Until Fri08/04/19 at 0855, Routine midazolam 2019-0 2020- No IV Push, Uni vers (VERSED) 08-04 TITRATE - ity o f injection 14:55: 14:55 FOR [place] 00 :00 PROCEDURE Medical USE, 1 Branch dose, Starting 08/04/19 at 0855, Until Fri08/04/19 at 0855, Routine clopidogreL 2019-0 2020- No Oral, PRN, Univers (PLAVIX) 08-04 Starting ity of tablet 13:46: 13:46 Fri [place] 16 :16 08/04/19 at [facility] 0746, Branch Until Fri08/04/19 at 0746, Routine aspirin 2019-0 2020- No Oral, PRN, Uni vers chewable 08-04 Starting ity of tablet 13:45: 13:45 Fri [place] 22 :22 08/04/19 at [facility] 0745, Branch Until Fri08/04/19 at 0745, [...] daily. Branch on inhaler butalbital- 2020-0 Yes [id number] 1{tbl} Take 1 [facility] acetaminoph 2-13 9108 tablet by ity of en-caff 00:00: mouth [place] 50-325-40 00 every 4 Medical mg tablet (four) Branch hours as needed for Pain (scale 4-6). butalbital- 2020-0 Yes [id number] 1{tbl} Take 1 [facility] acetaminoph 2-13 9108 tablet by ity of en-caff 00:00: mouth [place] 50-325-40 00 every 4 Medical mg tablet (four) Branch hours as needed for Pain (scale 4-6). butalbital- 2020-0 Yes [id number] 1{tbl} Take 1 [facility] acetaminoph 2-13 9108 tablet by ity of en-caff 00:00: mouth [place] 50-325-40 00 every 4 Medical mg tablet (four) Branch hours as needed for Pain (scale 4-6). butalbital- 2020-0 Yes [id number] 1{tbl} Take 1 [facility] acetaminoph 2-13 9108 tablet by ity of en-caff 00:00: mouth [place] 50-325-40 00 every 4 Medical mg tablet (four) Branch hours as needed for Pain (scale 4-6). butalbital- 2020-0 Yes [id number] 1{tbl} Take 1 [facility] acetaminoph 2-13 9108 tablet by ity of en-caff 00:00: mouth [place] 50-325-40 00 every 4 Medical mg tablet (four) Branch hours as needed for Pain (scale 4-6). butalbital- 2020-0 Yes [id number] 1{tbl} Take 1 [facility] acetaminoph 2-13 9108 tablet by ity of en-caff 00:00: mouth [place] 50-325-40 00 every 4 Medical mg tablet (four) Branch hours as needed for Pain (scale 4-6). butalbital- 2020-0 Yes [id number] 1{tbl} Take 1 [facility] acetaminoph 2-13 9108 tablet by ity of en-caff 00:00: mouth [place] 50-325-40 00 every 4 Medical mg tablet (four) Branch hours as needed for Pain (scale 4-6). butalbital- 2020-0 Yes [id number] 1{tbl} Take 1 [facility] acetaminoph 2-13 9108 tablet by ity of en-caff 00:00: mouth [place] 50-325-40 00 every 4 Medical mg tablet (four) Branch hours as needed for Pain (scale 4-6). butalbital- 2020-0 Yes [id number] 1{tbl} Take 1 [facility] acetaminoph 2-13 9108 [...] l (twelve) Branch hours. butalbital- 2020-0 Yes [id number] 1{tbl} Take 1 [facility] acetaminoph 2-13 9108 [...] l (twelve) Branch hours. butalbital- 2020-0 Yes [id number] 1{tbl} Take 1 [facility] acetaminoph 2-13 9108 [...] l (twelve) Branch hours. butalbital- 2020-0 Yes [id number] 1{tbl} Take 1 [facility] acetaminoph 2-13 9108 [...] l (twelve) Branch hours. butalbital- 2020-0 Yes [id number] 1{tbl} Take 1 [facility] acetaminoph 2-13 9108 [...] l (twelve) Branch hours. butalbital- 2020-0 Yes [id number] 1{tbl} Take 1 [facility] acetaminoph 2-13 9108 [...] l (twelve) Branch hours. butalbital- 2020-0 Yes [id number] 1{tbl} Take 1 [facility] acetaminoph 2-13 9108 [...] l (twelve) Branch hours. butalbital- 2020-0 Yes [id number] 1{tbl} Take 1 [facility] acetaminoph 2-13 9108 [...] l (twelve) Branch hours. butalbital- 2020-0 Yes [id number] 1{tbl} Take 1 [facility] acetaminoph 2-13 9108 [...] l (twelve) Branch hours. butalbital- 2020-0 Yes [id number] 1{tbl} Take 1 [facility] acetaminoph 2-13 9108 [...] l (twelve) Branch hours. butalbital- 2020-0 Yes [id number] 1{tbl} Take 1 [facility] acetaminoph 2-13 9108 [...] l (twelve) Branch hours. butalbital- 2020-0 Yes [id number] 1{tbl} Take 1 [facility] acetaminoph 2-13 9108 [...] l (twelve) Branch hours. butalbital- 2020-0 Yes [id number] 1{tbl} Take 1 [facility] acetaminoph 2-13 9108 [...] l (twelve) Branch hours. butalbital- 2020-0 Yes [id number] 1{tbl} Take 1 [facility] acetaminoph 2-13 9108 [...] l (twelve) Branch hours. butalbital- 2020-0 Yes [id number] 1{tbl} Take 1 [facility] acetaminoph 2-13 9108 [...] l (twelve) Branch hours. butalbital- 2020-0 Yes [id number] 1{tbl} Take 1 [facility] acetaminoph 2-13 9108 [...] l (twelve) Branch hours. butalbital- 2020-0 Yes [id number] 1{tbl} Take 1 [facility] acetaminoph 2-13 9108 [...] l (twelve) Branch hours. butalbital- 2020-0 Yes [id number] 1{tbl} Take 1 [facility] acetaminoph 2-13 9108 [...] l (twelve) Branch hours. butalbital- 2020-0 Yes [id number] 1{tbl} Take 1 [facility] acetaminoph 2-13 9108 [...] l (twelve) Branch hours. butalbital- 2020-0 Yes [id number] 1{tbl} Take 1 [facility] acetaminoph 2-13 9108 [...] l (twelve) Branch hours. butalbital- 2020-0 Yes [id number] 1{tbl} Take 1 [facility] acetaminoph 2-13 9108 tablet by ity of en-caff 00:00: mouth [place] 50-325-40 00 every 4 Medical mg tablet (four) Branch hours as needed for Pain (scale 4-6). butalbital- 2020-0 Yes [id number] 1{tbl} Take 1 [facility] acetaminoph 2-13 9108 tablet by ity of en-caff 00:00: mouth [place] 50-325-40 00 every 4 Medical mg tablet (four) Branch hours as needed for Pain (scale 4-6). butalbital- 2020-0 Yes [id number] 1{tbl} Take 1 [facility] acetaminoph 2-13 9108 tablet by ity of en-caff 00:00: mouth [place] 50-325-40 00 every 4 Medical mg tablet (four) Branch hours as needed for Pain (scale 4-6). butalbital- 2020-0 Yes [id number] 1{tbl} Take 1 [facility] acetaminoph 2-13 9108 tablet by ity of en-caff 00:00: mouth [place] 50-325-40 00 every 4 Medical mg tablet (four) Branch hours as needed for Pain (scale 4-6). butalbital- 2020-0 Yes [id number] 1{tbl} Take 1 [facility] acetaminoph 2-13 9108 tablet by ity of en-caff 00:00: mouth [place] 50-325-40 00 every 4 Medical mg tablet (four) Branch hours as needed for Pain (scale 4-6). butalbital- 2020-0 Yes [id number] 1{tbl} Take 1 [facility] acetaminoph 2-13 9108 tablet by ity of en-caff 00:00: mouth [place] 50-325-40 00 every 4 Medical mg tablet (four) Branch hours as needed for Pain (scale 4-6). butalbital- 2020-0 Yes [id number] 1{tbl} Take 1 [facility] acetaminoph 2-13 9108 tablet by ity of en-caff 00:00: mouth [place] 50-325-40 00 every 4 Medical mg tablet (four) Branch hours as needed for Pain (scale 4-6). butalbital- 2020-0 Yes [id number] 1{tbl} Take 1 [facility] acetaminoph 2-13 9108 tablet by ity of en-caff 00:00: mouth [place] 50-325-40 00 every 4 Medical mg tablet (four) Branch hours as needed for Pain (scale 4-6). butalbital- 2019-0 Yes [id number] 1{tbl} Take 1 [facility] acetaminoph 2-13 9108 tablet by ity of en-caff 00:00: mouth [place] 50-325-40 00 every 4 Medical mg tablet (four) Branch hours as needed for Pain (scale 4-6). butalbital- 2019-0 Yes [id number] 1{tbl} Take 1 [facility] acetaminoph 2-13 9108 tablet by ity of en-caff 00:00: mouth [place] 50-325-40 00 every 4 Medical mg tablet (four) Branch hours as needed for Pain (scale 4-6). butalbital- 2019-0 Yes [id number] 1{tbl} Take 1 [facility] acetaminoph 2-13 9108 tablet by ity of en-caff 00:00: mouth [place] 50-325-40 00 every 4 Medical mg tablet (four) Branch hours as needed for Pain (scale 4-6). butalbital- 2019- Yes [id number] 1{tbl} Take 1 [facility] acetaminoph 2-13 9108 tablet by ity of en-caff 00:00: mouth [place] 50-325-40 00 every 4 Medical mg tablet (four) Branch hours as needed for Pain (scale 4-6). butalbital- 2019- Yes [id number] 1{tbl} Take 1 [facility] acetaminoph 2-13 9108 [...] l (twelve) Branch hours. ibuprofen 2020-0 Yes [id number] 600mg Take 1 U nivers 600 mg 2-11 tablet by ity of tablet 00:00: mouth [place] 00 every 8 Medical (eight) Branch hours as needed for Pain (scale 4-6). ibuprofen 2020-0 Yes [id number] 600mg Take 1 U nivers 600 mg 2-11 tablet by ity of tablet 00:00: mouth [place] 00 every 8 Medical (eight) Branch hours as needed for Pain (scale 4-6). ibuprofen 2020-0 Yes [id number] 600mg Take 1 U nivers 600 mg 2-11 tablet by ity of tablet 00:00: mouth [place] 00 every 8 Medical (eight) Branch hours as needed for Pain (scale 4-6). ibuprofen 2020-0 Yes [id number] 600mg Take 1 U nivers 600 mg 2-11 tablet by ity of tablet 00:00: mouth [place] 00 every 8 Medical (eight) Branch hours as needed for Pain (scale 4-6). ibuprofen 2020-0 Yes [id number] 600mg Take 1 U nivers 600 mg 2-11 tablet by ity of tablet 00:00: mouth [place] 00 every 8 Medical (eight) Branch hours as needed for Pain (scale 4-6). ibuprofen 2020-0 Yes [id number] 600mg Take 1 U nivers 600 mg 2-11 tablet by ity of tablet 00:00: mouth [place] 00 every 8 Medical (eight) Branch hours as needed for Pain (scale 4-6). ibuprofen 2020-0 Yes [id number] 600mg Take 1 U nivers 600 mg 2-11 tablet by ity of tablet 00:00: mouth [place] 00 every 8 Medical (eight) Branch hours as needed for Pain (scale 4-6). ibuprofen 2020-0 Yes [id number] 600mg Take 1 U nivers 600 mg 2-11 tablet by ity of tablet 00:00: mouth [place] 00 every 8 Medical (eight) Branch hours as needed for Pain (scale 4-6). ibuprofen 2020-0 Yes [id number] 600mg Take 1 U nivers 600 mg 2-11 tablet by ity of tablet 00:00: mouth [place] 00 every 8 Medical (eight) Branch hours as needed for Pain (scale 4-6). ibuprofen 2020-0 Yes [id number] 600mg Take 1 U nivers 600 mg 2-11 tablet by ity of tablet 00:00: mouth [place] 00 every 8 Medical (eight) Branch hours as needed for Pain (scale 4-6). ibuprofen 2020-0 Yes [id number] 600mg Take 1 U nivers 600 mg 2-11 tablet by ity of tablet 00:00: mouth [place] 00 every 8 Medical (eight) Branch hours as needed for Pain (scale 4-6). ibuprofen 2020-0 Yes [id number] 600mg Take 1 U nivers 600 mg 2-11 tablet by ity of tablet 00:00: mouth [place] 00 every 8 Medical (eight) Branch hours as needed for Pain (scale 4-6). ibuprofen 2020-0 Yes [id number] 600mg Take 1 U nivers 600 mg 2-11 tablet by ity of tablet 00:00: mouth [place] 00 every 8 Medical (eight) Branch hours as needed for Pain (scale 4-6). ibuprofen 2020-0 Yes [id number] 600mg Take 1 U nivers 600 mg 2-11 tablet by ity of tablet 00:00: mouth [place] 00 every 8 Medical (eight) Branch hours as needed for Pain (scale 4-6). ibuprofen 2020-0 Yes [id number] 600mg Take 1 U nivers 600 mg 2-11 tablet by ity of tablet 00:00: mouth [place] 00 every 8 Medical (eight) Branch hours as needed for Pain (scale 4-6). ibuprofen 2020-0 Yes [id number] 600mg Take 1 U nivers 600 mg 2-11 tablet by ity of tablet 00:00: mouth [place] 00 every 8 Medical (eight) Branch hours as needed for Pain (scale 4-6). ibuprofen 2020-0 Yes [id number] 600mg Take 1 U nivers 600 mg 2-11 tablet by ity of tablet 00:00: mouth [place] 00 every 8 Medical (eight) Branch hours as needed for Pain (scale 4-6). ibuprofen 2020-0 Yes [id number] 600mg Take 1 U nivers 600 mg 2-11 tablet by ity of tablet 00:00: mouth [place] 00 every 8 Medical (eight) Branch hours as needed for Pain (scale 4-6). ibuprofen 2020-0 Yes [id number] 600mg Take 1 U nivers 600 mg 2-11 tablet by ity of tablet 00:00: mouth [place] 00 every 8 Medical (eight) Branch hours as needed for Pain (scale 4-6). ibuprofen 2020-0 Yes [id number] 600mg Take 1 U nivers 600 mg 2-11 tablet by ity of tablet 00:00: mouth [place] 00 every 8 Medical (eight) Branch hours as needed for Pain (scale 4-6). ibuprofen 2020-0 Yes [id number] 600mg Take 1 U nivers 600 mg 2-11 tablet by ity of tablet 00:00: mouth [place] 00 every 8 Medical (eight) Branch hours as needed for Pain (scale 4-6). ibuprofen 2020-0 Yes [id number] 600mg Take 1 U nivers 600 mg 2-11 tablet by ity of tablet 00:00: mouth [place] 00 every 8 Medical (eight) Branch hours as needed for Pain (scale 4-6). ibuprofen 2020-0 Yes [id number] 600mg Take 1 U nivers 600 mg 2-11 tablet by ity of tablet 00:00: mouth [place] 00 every 8 Medical (eight) Branch hours as needed for Pain (scale 4-6). ibuprofen 2020-0 Yes [id number] 600mg Take 1 U nivers 600 mg 2-11 tablet by ity of tablet 00:00: mouth [place] 00 every 8 Medical (eight) Branch hours as needed for Pain (scale 4-6). ibuprofen 2020-0 Yes [id number] 600mg Take 1 U nivers 600 mg 2-11 tablet by ity of tablet 00:00: mouth [place] 00 every 8 Medical (eight) Branch hours as needed for Pain (scale 4-6). ibuprofen 2020-0 Yes [id number] 600mg Take 1 U nivers 600 mg 2-11 tablet by ity of tablet 00:00: mouth [place] 00 every 8 Medical (eight) Branch hours as needed for Pain (scale 4-6). ibuprofen 2020-0 Yes [id number] 600mg Take 1 U nivers 600 mg 2-11 tablet by ity of tablet 00:00: mouth [place] 00 every 8 Medical (eight) Branch hours as needed for Pain (scale 4-6). ibuprofen 2020-0 Yes [id number] 600mg Take 1 U nivers 600 mg 2-11 tablet by ity of tablet 00:00: mouth [place] 00 every 8 Medical (eight) Branch hours as needed for Pain (scale 4-6). ibuprofen 2020-0 Yes [id number] 600mg Take 1 U nivers 600 mg 2-11 tablet by ity of tablet 00:00: mouth [place] 00 every 8 Medical (eight) Branch hours as needed for Pain (scale 4-6). ibuprofen 2020-0 Yes [id number] 600mg Take 1 U nivers 600 mg 2-11 tablet by ity of tablet 00:00: mouth [place] 00 every 8 Medical (eight) Branch hours as needed for Pain (scale 4-6). ibuprofen 2020-0 Yes [id number] 600mg Take 1 U nivers 600 mg 2-11 tablet by ity of tablet 00:00: mouth [place] 00 every 8 Medical (eight) Branch hours as needed for Pain (scale 4-6). ibuprofen 2020-0 Yes [id number] 600mg Take 1 U nivers 600 mg 2-11 tablet by ity of tablet 00:00: mouth [place] 00 every 8 Medical (eight) Branch hours as needed for Pain (scale 4-6). ibuprofen 2020-0 Yes [id number] 600mg Take 1 U nivers 600 mg 2-11 tablet by ity of tablet 00:00: mouth [place] 00 every 8 Medical (eight) Branch hours as needed for Pain (scale 4-6). ibuprofen 2020-0 Yes [id number] 600mg Take 1 U nivers 600 mg 2-11 tablet by ity of tablet 00:00: mouth [place] 00 every 8 Medical (eight) Branch hours as needed for Pain (scale 4-6). ibuprofen 2020-0 Yes [id number] 600mg Take 1 U nivers 600 mg 2-11 tablet by ity of tablet 00:00: mouth [place] 00 every 8 Medical (eight) Branch hours as needed for Pain (scale 4-6). ibuprofen 2020-0 2020- No [id number] 600mg Take 1 Univers 600 mg 2-11 08-03 tablet by [facility] tablet 00:00: 00:00 mouth [place] 00 :00 every 8 Medical (eight) Branch hours as needed for Pain (scale 4-6). levothyroxi 2020-0 Yes [id number] 50ug Take 1 [facility] 50 mcg 2-07 tablet by [facility] o f tablet 00:00: mouth [place] 00 every Medical morning. Branch levothyroxi 2020-0 Yes [id number] 50ug Take 1 [facility] ne 50 mcg 2-07 tablet by [facility] o f tablet 00:00: mouth [place] 00 every Medical morning. Branch levothyroxi 2020-0 Yes [id number] 50ug Take 1 [facility] ne 50 mcg 2-07 tablet by [facility] o f tablet 00:00: mouth [place] 00 every Medical morning. Branch levothyroxi 2020-0 Yes [id number] 50ug Take 1 [facility] ne 50 mcg 2-07 tablet by ity o f tablet 00:00: mouth [place] 00 every Medical morning. Branch levothyroxi 2020-0 Yes [id number] 50ug Take 1 [facility] ne 50 mcg 2-07 tablet by ity o f tablet 00:00: mouth [place] 00 every Medical morning. Branch levothyroxi 2020-0 Yes [id number] 50ug Take 1 [facility] ne 50 mcg 2-07 tablet by [facility] o f tablet 00:00: mouth [place] 00 every Medical morning. Branch levothyroxi 2020-0 Yes [id number] 50ug Take 1 [facility] ne 50 mcg 2-07 tablet by [facility] o f tablet 00:00: mouth [place] 00 every Medical morning. Branch levothyroxi 2020-0 Yes [id number] 50ug Take 1 [facility] ne 50 mcg 2-07 tablet by [facility]y o f tablet 00:00: mouth [place] 00 every Medical morning. Branch levothyroxi 2020-0 Yes [id number] 50ug Take 1 [facility] ne 50 mcg 2-07 tablet by [facility]y o f tablet 00:00: mouth [place] 00 every Medical morning. Branch levothyroxi 2020-0 Yes [id number] 50ug Take 1 [facility] ne 50 mcg 2-07 tablet by [facility]y o f tablet 00:00: mouth [place] 00 every Medical morning. Branch levothyroxi 2020-0 Yes [id number] 50ug Take 1 [facility] ne 50 mcg 2-07 tablet by it[facility] o f tablet 00:00: mouth [place] 00 every Medical morning. Branch levothyroxi 2020-0 Yes [id number] 50ug Take 1 [facility] ne 50 mcg 2-07 tablet by [facility]y o f tablet 00:00: mouth [place] 00 every Medical morning. Branch levothyroxi 2020-0 Yes [id number] 50ug Take 1 [facility] ne 50 mcg 2-07 tablet by [facility]y o f tablet 00:00: mouth [place] 00 every Medical morning. Branch levothyroxi 2020-0 Yes [id number] 50ug Take 1 [facility] ne 50 mcg 2-07 tablet by [facility]y o f tablet 00:00: mouth [place] 00 every Medical morning. Branch levothyroxi 2020-0 Yes [id number] 50ug Take 1 [facility] ne 50 mcg 2-07 tablet by [facility] o f tablet 00:00: mouth [place] 00 every Medical morning. Branch levothyroxi 2020-0 Yes [id number] 50ug Take 1 [facility] ne 50 mcg 2-07 tablet by ity o f tablet 00:00: mouth [place] 00 every Medical morning. Branch levothyroxi 2020-0 Yes [id number] 50ug Take 1 [facility] ne 50 mcg 2-07 tablet by ity o f tablet 00:00: mouth [place] 00 every Medical morning. Branch levothyroxi 2020-0 Yes [id number] 50ug Take 1 [facility] ne 50 mcg 2-07 tablet by [facility] o f tablet 00:00: mouth [place] 00 every Medical morning. Branch levothyroxi 2020-0 Yes [id number] 50ug Take 1 [facility] ne 50 mcg 2-07 tablet by [facility] o f tablet 00:00: mouth [place] 00 every Medical morning. Branch levothyroxi 2020-0 Yes [id number] 50ug Take 1 [facility] ne 50 mcg 2-07 tablet by [facility] o f tablet 00:00: mouth [place] 00 every Medical morning. Branch levothyroxi 2020-0 Yes [id number] 50ug Take 1 [facility] ne 50 mcg 2-07 tablet by ity o f tablet 00:00: mouth [place] 00 every Medical morning. Branch levothyroxi 2020-0 Yes [id number] 50ug Take 1 [facility] ne 50 mcg 2-07 tablet by ity o f tablet 00:00: mouth [place] 00 every Medical morning. Branch levothyroxi 2020-0 Yes [id number] 50ug Take 1 [facility] ne 50 mcg 2-07 tablet by ity o f tablet 00:00: mouth [place] 00 every Medical morning. Branch levothyroxi 2020-0 Yes [id number] 50ug Take 1 [facility] ne 50 mcg 2-07 tablet by ity o f tablet 00:00: mouth [place] 00 every Medical morning. Branch levothyroxi 2020-0 Yes [id number] 50ug Take 1 [facility] ne 50 mcg 2-07 tablet by ity o f tablet 00:00: mouth [place] 00 every Medical morning. Branch levothyroxi 2020-0 Yes [id number] 50ug Take 1 [facility] ne 50 mcg 2-07 tablet by ity o f tablet 00:00: mouth [place] 00 every Medical morning. Branch levothyroxi 2020-0 Yes [id number] 50ug Take 1 [facility] ne 50 mcg 2-07 tablet by ity o f tablet 00:00: mouth [place] 00 every Medical morning. Branch levothyroxi 2020-0 Yes [id number] 50ug Take 1 [facility] ne 50 mcg 2-07 tablet by ity o f tablet 00:00: mouth [place] 00 every Medical morning. Branch levothyroxi 2020-0 Yes [id number] 50ug Take 1 [facility] ne 50 mcg 2-07 tablet by ity o f tablet 00:00: mouth [place] 00 every Medical morning. Branch levothyroxi 2020-0 Yes [id number] 50ug Take 1 [facility] ne 50 mcg 2-07 tablet by ity o f tablet 00:00: mouth [place] 00 every Medical morning. Branch levothyroxi 2020-0 Yes [id number] 50ug Take 1 [facility] ne 50 mcg 2-07 tablet by ity o f tablet 00:00: mouth [place] 00 every Medical morning. Branch levothyroxi 2020-0 Yes [id number] 50ug Take 1 [facility] ne 50 mcg 2-07 tablet by ity o f tablet 00:00: mouth [place] 00 every Medical morning. Branch levothyroxi 2020-0 Yes [id number] 50ug Take 1 [facility] ne 50 mcg 2-07 tablet by ity o f tablet 00:00: mouth [place] 00 every Medical morning. Branch levothyroxi 2020-0 Yes [id number] 50ug Take 1 [facility] ne 50 mcg 2-07 tablet by ity o f tablet 00:00: mouth [place] 00 every Medical morning. Branch levothyroxi 2020-0 Yes [id number] 50ug Take 1 [facility] ne 50 mcg 2-07 tablet by ity o f tablet 00:00: mouth [place] 00 every Medical morning. Branch levothyroxi 2020-0 Yes [id number] 50ug Take 1 [facility] ne 50 mcg 2-07 tablet by ity o f tablet 00:00: mouth [place] 00 every Medical morning. Branch levothyroxi 2020-0 Yes [id number] 50ug Take 1 [facility] ne 50 mcg 2-07 tablet by ity o f tablet 00:00: mouth [place] 00 every Medical morning. Branch levothyroxi 2020-0 Yes [id number] 50ug Take 1 [facility] ne 50 mcg 2-07 tablet by ity o f tablet 00:00: mouth [place] 00 every Medical morning. Branch levothyroxi 2020-0 2020- No [id number] 50ug Take 1 [facility] ne 50 mcg 2-07 08-03 tablet by [facility] of tablet 00:00: 00:00 mouth [place] 00 :00 every Medical morning. Branch levothyroxi 2020-0 Yes [id number] 75ug Take 1 [facility] ne 75 mcg 2-04 tablet by ity o f tablet 00:00: mouth [place] 00 every Medical morning. Branch levothyroxi 2020-0 Yes [id number] 75ug Take 1 [facility] ne 75 mcg 2-04 tablet by ity o f tablet 00:00: mouth [place] 00 every Medical morning. Branch levothyroxi 2020-0 Yes [id number] 75ug Take 1 [facility] ne 75 mcg 2-04 tablet by ity o f tablet 00:00: mouth [place] 00 every Medical morning. Branch levothyroxi 2020-0 Yes [id number] 75ug Take 1 [facility] ne 75 mcg 2-04 tablet by ity o f tablet 00:00: mouth [place] 00 every Medical morning. Branch levothyroxi 2020-0 Yes [id number] 75ug Take 1 [facility] ne 75 mcg 2-04 tablet by ity o f tablet 00:00: mouth [place] 00 every Medical morning. Branch levothyroxi 2020-0 Yes [id number] 75ug Take 1 [facility] ne 75 mcg 2-04 tablet by ity o f tablet 00:00: mouth [place] 00 every Medical morning. Branch levothyroxi 2020-0 Yes [id number] 75ug Take 1 [facility] ne 75 mcg 2-04 tablet by ity o f tablet 00:00: mouth [place] 00 every Medical morning. Branch levothyroxi 2020-0 Yes [id number] 75ug Take 1 [facility] ne 75 mcg 2-04 tablet by it[facility] o f tablet 00:00: mouth [place] 00 every Medical morning. Branch levothyroxi 2020-0 Yes [id number] 75ug Take 1 [facility] ne 75 mcg 2-04 tablet by ity o f tablet 00:00: mouth [place] 00 every Medical morning. Branch levothyroxi 2020-0 Yes [id number] 75ug Take 1 [facility] ne 75 mcg 2-04 tablet by ity o f tablet 00:00: mouth [place] 00 every Medical morning. Branch levothyroxi 2020-0 Yes [id number] 75ug Take 1 [facility] ne 75 mcg 2-04 tablet by ity o f tablet 00:00: mouth [place] 00 every Medical morning. Branch levothyroxi 2020-0 Yes [id number] 75ug Take 1 [facility] ne 75 mcg 2-04 tablet by ity o f tablet 00:00: mouth [place] 00 every Medical morning. Branch levothyroxi 2019-0 Yes [id number] 75ug Take 1 [facility] ne 75 mcg 2-04 tablet by ity o f tablet 00:00: mouth [place] 00 every Medical morning. Branch levothyroxi 2019-0 2020- No [id number] 75ug Take 1 [facility] ne 75 mcg 2-04 02-20 tablet by [facility] of tablet 00:00: 00:00 mouth [place] 00 :00 every Medical morning. Branch levothyroxi 2019- 2020- No [id number] 75ug Take 1 [facility] ne 75 mcg 2-04 02-20 tablet by [facility] of tablet 00:00: 00:00 mouth [place] 00 :00 every Medical morning. Branch ibuprofen 2019- 2020- No [id number] 600mg Take 600 [facility] 600 mg 1-31 01-31 mg by it[facility] of tablet 16:23: 00:00 mouth [place] 45 :00 every 6 Medical (six) Branch hours as needed. ibuprofen 2019-2019- No [id number] 600mg Take 600 [facility] 600 mg 1-31 01-31 mg by ity of tablet 16:23: 00:00 mouth [place] 45 :00 every 6 Medical (six) Branch hours as needed. levalbutero 0 Yes 1{puff} Inhale 1-2 [facility] l 45 1-31 Puffs 3 ity of mcg/actuati 16:23: (three) Qasim as on inhaler 37 times Medical daily as Branch needed for Wheezing. aspirin 81 2019-0 Yes [id number] 81mg Take 81 mg [facility] mg EC 1-31 by mouth [facility] of tablet 16:23: daily. [address] levalbutero 2019-0 Yes 1{puff} Inhale 1-2 [facility] l 45 1-31 Puffs 3 ity of mcg/actuati 16:23: (three) [facility] as on inhaler 37 times Medical daily as Branch needed for Wheezing. aspirin 81 2020-0 Yes [id number] 81mg Take 81 mg [facility] mg EC 1-31 by mouth ity of tablet 16:23: daily. [address] levalbutero 2019-0 Yes 1{puff} Inhale 1-2 [facility] l 45 1-31 Puffs 3 ity of mcg/actuati 16:23: (three) [facility] as on inhaler 37 times Medical daily as Branch needed for Wheezing. aspirin 81 2020-0 Yes [id number] 81mg Take 81 mg [facility] mg EC 1-31 by mouth [facility]y of tablet 16:23: daily. [address] levalbutero 2020-0 Yes 1{puff} Inhale 1-2 [facility] l 45 1-31 Puffs 3 ity of mcg/actuati 16:23: (three) Aqsim as on inhaler 37 times Medical daily as Branch needed for Wheezing. aspirin 81 2019-0 Yes [id number] 81mg Take 81 mg [facility] mg EC 1-31 by mouth ity of tablet 16:23: daily. [address] levalbutero 2019-0 Yes 1{puff} Inhale 1-2 [facility] l 45 1-31 Puffs 3 ity of mcg/actuati 16:23: (three) [facility] as on inhaler 37 times Medical daily as Branch needed for Wheezing. aspirin 81 2019-0 Yes [id number] 81mg Take 81 mg [facility] mg EC 1-31 by mouth ity of tablet 16:23: daily. [address] levalbutero 2019-0 Yes 1{puff} Inhale 1-2 [facility] l 45 1-31 Puffs 3 ity of mcg/actuati 16:23: (three) Q[facility]im as on inhaler 37 times Medical daily as Branch needed for Wheezing. aspirin 81 2019-0 Yes [id number] 81mg Take 81 mg [facility] mg EC 1-31 by mouth ity of tablet 16:23: daily. [address] levalbutero 2019-0 Yes 1{puff} Inhale 1-2 [facility] l 45 1-31 Puffs 3 ity of mcg/actuati 16:23: (three) [facility] as on inhaler 37 times Medical daily as Branch needed for Wheezing. aspirin 81 2019-0 Yes [id number] 81mg Take 81 mg [facility] mg EC 1-31 by mouth ity of tablet 16:23: daily. [address] levalbutero 2020-0 Yes 1{puff} Inhale 1-2 [facility] l 45 1-31 Puffs 3 ity of mcg/actuati 16:23: (three) Q[facility] as on inhaler 37 times Medical daily as Branch needed for Wheezing. aspirin 81 2019-0 Yes [id number] 81mg Take 81 mg [facility] mg EC 1-31 by mouth ity of tablet 16:23: daily. [address] levalbutero 2019-0 Yes 1{puff} Inhale 1-2 [facility] l 45 1-31 Puffs 3 ity of mcg/actuati 16:23: (three) Qasim as on inhaler 37 times Medical daily as Branch needed for Wheezing. aspirin 81 2020-0 Yes [id number] 81mg Take 81 mg [facility] mg EC 1-31 by mouth ity of tablet 16:23: daily. [address] levalbutero 2019-0 Yes 1{puff} Inhale 1-2 [facility] l 45 1-31 Puffs 3 ity of mcg/actuati 16:23: (three) Qasim as on inhaler 37 times Medical daily as Branch needed for Wheezing. aspirin 81 2019-0 Yes [id number] 81mg Take 81 mg [facility] mg EC 1-31 by mouth ity of tablet 16:23: daily. [address] levalbutero 0 Yes 1{puff} Inhale 1-2 [facility] l 45 1-31 Puffs 3 ity of mcg/actuati 16:23: (three) Qasim as on inhaler 37 times Medical daily as Branch needed for Wheezing. aspirin 81 2019-0 Yes [id number] 81mg Take 81 mg [facility] mg EC 1-31 by mouth ity of tablet 16:23: daily. [address] levalbutero 2019-0 Yes 1{puff} Inhale 1-2 [facility] l 45 1-31 Puffs 3 ity of mcg/actuati 16:23: (three) Qasim as on inhaler 37 times Medical daily as Branch needed for Wheezing. aspirin 81 2019-0 Yes [id number] 81mg Take 81 mg [facility] mg EC 1-31 by mouth ity of tablet 16:23: daily. [address] levalbutero 2019-0 Yes 1{puff} Inhale 1-2 [facility] l 45 1-31 Puffs 3 ity of mcg/actuati 16:23: (three) Qasim as on inhaler 37 times Medical daily as Branch needed for Wheezing. aspirin 81 2019-0 Yes [id number] 81mg Take 81 mg [facility] mg EC 1-31 by mouth ity of tablet 16:23: daily. [address] levalbutero 2019-0 Yes 1{puff} Inhale 1-2 [facility] l 45 1-31 Puffs 3 ity of mcg/actuati 16:23: (three) Qasim as on inhaler 37 times Medical daily as Branch needed for Wheezing. aspirin 81 2019-0 Yes [id number] 81mg Take 81 mg [facility] mg EC 1-31 by mouth ity of tablet 16:23: daily. [address] levalbutero 2019-0 Yes 1{puff} Inhale 1-2 [facility] l 45 1-31 Puffs 3 ity of mcg/actuati 16:23: (three) [facility] as on inhaler 37 times Medical daily as Branch needed for Wheezing. aspirin 81 2019-0 Yes [id number] 81mg Take 81 mg [facility] mg EC 1-31 by mouth ity of tablet 16:23: daily. [address] levalbutero 0 Yes 1{puff} Inhale 1-2 [facility] l 45 1-31 Puffs 3 ity of mcg/actuati 16:23: (three) [facility] as on inhaler 37 times Medical daily as Branch needed for Wheezing. aspirin 81 2019-0 Yes [id number] 81mg Take 81 mg [facility] mg EC 1-31 by mouth ity of tablet 16:23: daily. [address] levalbutero 0 Yes 1{puff} Inhale 1-2 [facility] l 45 1-31 Puffs 3 ity of mcg/actuati 16:23: (three) Q[facility]im as on inhaler 37 times Medical daily as Branch needed for Wheezing. aspirin 81 2019-0 Yes [id number] 81mg Take 81 mg [facility] mg EC 1-31 by mouth ity of tablet 16:23: daily. [address] levalbutero 2019-0 Yes 1{puff} Inhale 1-2 [facility] l 45 1-31 Puffs 3 ity of mcg/actuati 16:23: (three) Qasim as on inhaler 37 times Medical daily as Branch needed for Wheezing. aspirin 81 2019-0 Yes [id number] 81mg Take 81 mg [facility] mg EC 1-31 by mouth ity of tablet 16:23: daily. [address] levalbutero 2019-0 Yes 1{puff} Inhale 1-2 [facility] l 45 1-31 Puffs 3 ity of mcg/actuati 16:23: (three) Q[facility]im as on inhaler 37 times Medical daily as Branch needed for Wheezing. aspirin 81 2019-0 Yes [id number] 81mg Take 81 mg [facility] mg EC 1-31 by mouth ity of tablet 16:23: daily. [address] levalbutero 2019-0 Yes 1{puff} Inhale 1-2 [facility] l 45 1-31 Puffs 3 ity of mcg/actuati 16:23: (three) Q[facility]im as on inhaler 37 times Medical daily as Branch needed for Wheezing. aspirin 81 2019-0 Yes [id number] 81mg Take 81 mg [facility] mg EC 1-31 by mouth ity of tablet 16:23: daily. [address] levalbutero 2019-0 Yes 1{puff} Inhale 1-2 [facility] l 45 1-31 Puffs 3 ity of mcg/actuati 16:23: (three) Q[facility]im as on inhaler 37 times Medical daily as Branch needed for Wheezing. aspirin 81 2019-0 Yes [id number] 81mg Take 81 mg [facility] mg EC 1-31 by mouth ity of tablet 16:23: daily. [address] levalbutero 2019-0 Yes 1{puff} Inhale 1-2 [facility] l 45 1-31 Puffs 3 ity of mcg/actuati 16:23: (three) Q[facility]im as on inhaler 37 times Medical daily as Branch needed for Wheezing. aspirin 81 2019-0 Yes [id number] 81mg Take 81 mg [facility] mg EC 1-31 by mouth ity of tablet 16:23: daily. [address] levalbutero 2019-0 Yes 1{puff} Inhale 1-2 [facility] l 45 1-31 Puffs 3 ity of mcg/actuati 16:23: (three) Q[facility]im as on inhaler 37 times Medical daily as Branch needed for Wheezing. aspirin 81 2019-0 Yes [id number] 81mg Take 81 mg [facility] mg EC 1-31 by mouth ity of tablet 16:23: daily. [address] levalbutero 2019-0 Yes 1{puff} Inhale 1-2 [facility] l 45 1-31 Puffs 3 ity of mcg/actuati 16:23: (three) Q[facility]im as on inhaler 37 times Medical daily as Branch needed for Wheezing. aspirin 81 2019-0 Yes [id number] 81mg Take 81 mg [facility] mg EC 1-31 by mouth ity of tablet 16:23: daily. [address] levalbutero 2019-0 Yes 1{puff} Inhale 1-2 [facility] l 45 1-31 Puffs 3 ity of mcg/actuati 16:23: (three) Qasim as on inhaler 37 times Medical daily as Branch needed for Wheezing. aspirin 81 2019-0 Yes [id number] 81mg Take 81 mg [facility] mg EC 1-31 by mouth ity of tablet 16:23: daily. [address] levalbutero 2019-0 Yes 1{puff} Inhale 1-2 [facility] l 45 1-31 Puffs 3 ity of mcg/actuati 16:23: (three) Qasim as on inhaler 37 times Medical daily as Branch needed for Wheezing. aspirin 81 2019-0 Yes [id number] 81mg Take 81 mg [facility] mg EC 1-31 by mouth ity of tablet 16:23: daily. [address] levalbutero Yes 1{puff} Inhale 1-2 [facility] l 45 1-31 Puffs 3 ity of mcg/actuati 16:23: (three) Q[facility]im as on inhaler 37 times Medical daily as Branch needed for Wheezing. aspirin 81 0 Yes [id number] 81mg Take 81 mg [facility] mg EC 1-31 by mouth ity of tablet 16:23: daily. [address] levalbutero Yes 1{puff} Inhale 1-2 [facility] l 45 1-31 Puffs 3 ity of mcg/actuati 16:23: (three) Qasim as on inhaler 37 times Medical daily as Branch needed for Wheezing. aspirin 81 2019-0 Yes [id number] 81mg Take 81 mg [facility] mg EC 1-31 by mouth ity of tablet 16:23: daily. [address] levalbutero 0 Yes 1{puff} Inhale 1-2 [facility] l 45 1-31 Puffs 3 ity of mcg/actuati 16:23: (three) Q[facility]im as on inhaler 37 times Medical daily as Branch needed for Wheezing. aspirin 81 2019-0 Yes [id number] 81mg Take 81 mg [facility] mg EC 1-31 by mouth ity of tablet 16:23: daily. [address] levalbutero 0 Yes 1{puff} Inhale 1-2 [facility] l 45 1-31 Puffs 3 ity of mcg/actuati 16:23: (three) [facility] as on inhaler 37 times Medical daily as Branch needed for Wheezing. aspirin 81 2019-0 Yes [id number] 81mg Take 81 mg [facility] mg EC 1-31 by mouth ity of tablet 16:23: daily. [address] levalbutero 2019-0 Yes 1{puff} Inhale 1-2 [facility] l 45 1-31 Puffs 3 ity of mcg/actuati 16:23: (three) Q[facility] as on inhaler 37 times Medical daily as Branch needed for Wheezing. aspirin 81 2019-0 Yes [id number] 81mg Take 81 mg [facility] mg EC 1-31 by mouth ity of tablet 16:23: daily. [address] levalbutero 0 Yes 1{puff} Inhale 1-2 [facility] l 45 1-31 Puffs 3 ity of mcg/actuati 16:23: (three) [facility] as on inhaler 37 times Medical daily as Branch needed for Wheezing. aspirin 81 0 Yes [id number] 81mg Take 81 mg [facility] mg EC 1-31 by mouth ity of tablet 16:23: daily. [address] levalbutero Yes 1{puff} Inhale 1-2 [facility] l 45 1-31 Puffs 3 ity of mcg/actuati 16:23: (three) [facility] as on inhaler 37 times Medical daily as Branch needed for Wheezing. aspirin 81 2019-0 Yes [id number] 81mg Take 81 mg [facility] mg EC 1-31 by mouth ity of tablet 16:23: daily. [address] levalbutero 0 Yes 1{puff} Inhale 1-2 [facility] l 45 1-31 Puffs 3 ity of mcg/actuati 16:23: (three) [facility] as on inhaler 37 times Medical daily as Branch needed for Wheezing. aspirin 81 2019-0 Yes [id number] 81mg Take 81 mg [facility] mg EC 1-31 by mouth ity of tablet 16:23: daily. [address] levalbutero 0 Yes 1{puff} Inhale 1-2 [facility] l 45 1-31 Puffs 3 ity of mcg/actuati 16:23: (three) [facility] as on inhaler 37 times Medical daily as Branch needed for Wheezing. aspirin 81 2019-0 Yes [id number] 81mg Take 81 mg [facility] mg EC 1-31 by mouth ity of tablet 16:23: daily. [address] levalbutero 2019-0 Yes 1{puff} Inhale 1-2 [facility] l 45 1-31 Puffs 3 ity of mcg/actuati 16:23: (three) Q[facility]im as on inhaler 37 times Medical daily as Branch needed for Wheezing. aspirin 81 2019-0 Yes [id number] 81mg Take 81 mg [facility] mg EC 1-31 by mouth ity of tablet 16:23: daily. [address] levalbutero 2019-0 Yes 1{puff} Inhale 1-2 [facility] l 45 1-31 Puffs 3 ity of mcg/actuati 16:23: (three) [facility] as on inhaler 37 times Medical daily as Branch needed for Wheezing. aspirin 81 2019-0 Yes [id number] 81mg Take 81 mg [facility] mg EC 1-31 by mouth ity of tablet 16:23: daily. [address] levalbutero 0 Yes 1{puff} Inhale 1-2 [facility] l 45 1-31 Puffs 3 ity of mcg/actuati 16:23: (three) [facility] as on inhaler 37 times Medical daily as Branch needed for Wheezing. aspirin 81 2019-0 Yes [id number] 81mg Take 81 mg [facility] mg EC 1-31 by mouth ity of tablet 16:23: daily. [address] levalbutero 2019-0 Yes 1{puff} Inhale 1-2 [facility] l 45 1-31 Puffs 3 ity of mcg/actuati 16:23: (three) [facility] as on inhaler 37 times Medical daily as Branch needed for Wheezing. aspirin 81 2019-0 Yes [id number] 81mg Take 81 mg [facility] mg EC 1-31 by mouth ity of tablet 16:23: daily. [address] levalbutero 2019-0 Yes 1{puff} Inhale 1-2 [facility] l 45 1-31 Puffs 3 ity of mcg/actuati 16:23: (three) Qasim as on inhaler 37 times Medical daily as Branch needed for Wheezing. aspirin 81 2019-0 Yes [id number] 81mg Take 81 mg [facility] mg EC 1-31 by mouth ity of tablet 16:23: daily. [address] levalbutero 2020-0 Yes 1{puff} Inhale 1-2 [facility] l 45 1-31 Puffs 3 ity of mcg/actuati 16:23: (three) Qasim as on inhaler 37 times Medical daily as Branch needed for Wheezing. aspirin 81 2020-0 Yes [id number] 81mg Take 81 mg [facility] mg EC 1-31 by mouth ity of tablet 16:23: daily. [place] [id number] Medical Branch levalbutero 2019-0 Yes 1{puff} Inhale 1-2 [facility] l 45 1-31 Puffs 3 ity of mcg/actuati 16:23: (three) Qasim as on inhaler 37 times Medical daily as Branch needed for Wheezing. aspirin 81 2020-0 Yes [id number] 81mg Take 81 mg [facility] mg EC 1-31 by mouth ity of tablet 16:23: daily. [place] [address] Medical Branch budesonide- 2019-0 Yes 2{puff} Inhale [...] daily. Branch on inhaler carvediloL 2020-0 Yes [id number] 12.5mg Take 1 [facility] 12.5 mg 1-31 07 tablet by ity of tablet 00:00: mouth 2 00 (two) Medical times Branch daily with meals. carvediloL 2020-0 Yes [id number] 12.5mg Take 1 [facility] 12.5 mg 1-31 07 tablet by ity of tablet 00:00: mouth 2 00 (two) Medical times Branch daily with meals. carvediloL 2020-0 Yes [id number] 12.5mg Take 1 [facility] 12.5 mg 1-31 07 tablet by ity of tablet 00:00: mouth 2 (two) Medical times Branch daily with meals. carvediloL 2020-0 Yes [id number] 12.5mg Take 1 [facility] 12.5 mg 1-31 07 tablet by ity of tablet 00:00: mouth 2 (two) Medical times Branch daily with meals. carvediloL 2020-0 Yes [id number] 12.5mg Take 1 [facility] 12.5 mg 1-31 07 tablet by ity of tablet 00:00: mouth 2 (two) Medical times Branch daily with meals. carvediloL 2020-0 Yes [id number] 12.5mg Take 1 [facility] 12.5 mg 1-31 07 tablet by ity of tablet 00:00: mouth 2 (two) Medical times Branch daily with meals. carvediloL 2020-0 Yes [id number] 12.5mg Take 1 [facility] 12.5 mg 1-31 07 tablet by ity of tablet 00:00: mouth 2 (two) Medical times Branch daily with meals. carvediloL 2020-0 Yes [id number] 12.5mg Take 1 [facility] 12.5 mg 1-31 07 tablet by ity of tablet 00:00: mouth (two) Medical times Branch daily with meals. carvediloL 2020-0 Yes [id number] 12.5mg Take 1 [facility] 12.5 mg 1-31 07 tablet by ity of tablet 00:00: mouth (two) Medical times Branch daily with meals. carvediloL 2020-0 Yes [id number] 12.5mg Take 1 [facility] 12.5 mg 1-31 07 tablet by ity of tablet 00:00: mouth (two) Medical times Branch daily with meals. carvediloL 2020-0 Yes [id number] 12.5mg Take 1 [facility] 12.5 mg 1-31 07 tablet by ity of tablet 00:00: mouth (two) Medical times Branch daily with meals. carvediloL 2020-0 Yes [id number] 12.5mg Take 1 [facility] 12.5 mg 1-31 07 tablet by ity of tablet 00:00: mouth 2 (two) Medical times Branch daily with meals. carvediloL 2020-0 Yes [id number] 12.5mg Take 1 [facility] 12.5 mg 1-31 07 tablet by ity of tablet 00:00: mouth 2 (two) Medical times Branch daily with meals. carvediloL 2020-0 2020- No [id number] 12.5mg Take 1 [facility] 12.5 mg 1-31 02-13 07 tablet by ity of tablet 00:00: 00:00 mouth 2 [place] 00 :00 (two) Medical times Branch daily with meals. carvediloL 2019- 2020- No [id number] 12.5mg Take 1 [facility] 12.5 mg 07-09 07 tablet by ity of tablet 00:00: 00:00 mouth 2 [place] 00 :00 (two) Medical times Branch daily with meals. carvediloL 2019- 2020- No [id number] 12.5mg Take 2 [facility] 6.25 mg 07-09 07 tablets by ity o f tablet 00:00: 00:00 mouth 2 [place] 00 :00 (two) Medical times Branch daily with meals. carvediloL 2019-2019- No [id number] 12.5mg Take 2 [facility] 6.25 mg 07-09 07 tablets by ity o f tablet 00:00: 00:00 mouth 2 [place] 00 :00 (two) Medical times Branch daily with meals. Mometasone- 2019- 2020- No Inhale 2 U nivers Formoterol -16 -16 (two) ity of (DULERA) 14:45: 00:00 times [place] 100-5 22 :00 daily. Medical mcg/actuati Branch on inhaler Mometasone- 0 2020- No Inhale 2 U nivers Formoterol -16 -16 (two) ity of (DULERA) 14:45: 00:00 times [place] 100-5 22 :00 daily. Medical mcg/actuati Branch on inhaler benzonatate 2019- 2020- No 100mg Take 100 [facility] 100 mg 1-16 01-16 mg by [facility] of capsule 14:44: 00:00 mouth 3 [place] 43 :00 (three) Medical times Branch daily as needed for Cough. benzonatate 2019-0 2020- No 100mg Take 100 [facility] 100 mg 1-16 01-16 mg by [facility] of capsule 14:44: 00:00 mouth 3 [place] 43 :00 (three) Medical times Branch daily as needed for Cough. ibuprofen 2019-0 Yes [id number] 600mg Take 600 [facility] 600 mg 1-12 mg by [facility] of tablet 00:29: mouth [place] 24 every 6 Medical (six) Branch hours as needed. budesonide- 2019-0 Yes 2{puff} Inhale 2 [facility] formoterol 1-12 Puffs 2 ity of (SYMBICORT) 00:29: (two) [place] 160-4.5 24 times Medical mcg/actuati daily. Branch on inhaler nitroglycer 2020-[id number] 0[address]4 [facility] in 0.4 mg [...] Branch needed for Wheezing. nitroglycer 2020-[id number] 0[address]4 [facility] in 0.4 mg 1-12 mg under ity of sublingual 00:29: the tongue [place] tablet 24 every 5 Medical (five) Branch minutes as needed for Chest pain. Not to exceed 3 doses nitroglycer 2020-[id number] 0.4 [facility] in 0.4 mg 1-12 mg under [facility] of sublingual 00:29: the tongue [place] tablet 24 every 5 Medical (five) Branch minutes as needed for Chest pain. Not to exceed 3 doses nitroglycer 2020-[id number] 0.4 [facility] in 0.4 mg 1-12 mg under [facility] of sublingual 00:29: the tongue [place] tablet 24 every 5 Medical (five) Branch minutes as needed for Chest pain. Not to exceed 3 doses nitroglycer 2020-[id number] 0.4 [facility] in 0.4 mg 1-12 mg under it[facility] of sublingual 00:29: the tongue [place] tablet 24 every 5 Medical (five) Branch minutes as needed for Chest pain. Not to exceed 3 doses aspirin 81 2020-0 Yes [id number] 81mg Take 81 mg [facility] mg EC 1-12 by mouth ity of tablet 00:29: daily. [place] 24 Medical Branch nitroglycer 2020-[id number] 0.4 [facility] in 0.4 mg 1-12 mg under [facility] of sublingual 00:29: the tongue [place] tablet 24 every 5 Medical (five) Branch minutes as needed for Chest pain. Not to exceed 3 doses nitroglycer 2020-[id number] 0.4 [facility] in 0.4 mg 1-12 mg under [facility] of sublingual 00:29: the tongue [place] tablet 24 every 5 Medical (five) Branch minutes as needed for Chest pain. Not to exceed 3 doses ibuprofen 2020-0 Yes [id number] 600mg Take 600 [facility] 600 mg 1-12 mg by [facility] of tablet 00:29: mouth [place] 24 every 6 Medical (six) Branch hours as needed. nitroglycer 2020-[id number] 0.4 [facility] in 0.4 mg [...] Branch needed for Wheezing. nitroglycer 2020-[id number] 0.4 [facility] in 0.4 mg 1-12 mg under [facility] of sublingual 00:29: the tongue [place] tablet 24 every 5 Medical (five) Branch minutes as needed for Chest pain. Not to exceed 3 doses nitroglycer 2020-[id number] 0.4 [facility] in 0.4 mg 1-12 mg under [facility] of sublingual 00:29: the tongue [place] tablet 24 every 5 Medical (five) Branch minutes as needed for Chest pain. Not to exceed 3 doses nitroglycer 2020-[id number] 0.4 [facility] in 0.4 mg 1-12 mg under [facility] of sublingual 00:29: the tongue [place] tablet 24 every 5 Medical (five) Branch minutes as needed for Chest pain. Not to exceed 3 doses nitroglycer 2020-[id number] 0.4 [facility] in 0.4 mg 1-12 mg under [facility] of sublingual 00:29: the tongue [place] tablet 24 every 5 Medical (five) Branch minutes as needed for Chest pain. Not to exceed 3 doses nitroglycer 2020-[id number] 0.4 [facility] in 0.4 mg 1-12 mg under ity of sublingual 00:29: the tongue [place] tablet 24 every 5 Medical (five) Branch minutes as needed for Chest pain. Not to exceed 3 doses nitroglycer 2020-[id number] 0.4 [facility] in 0.4 mg 1-12 mg under [facility] of sublingual 00:29: the tongue [place] tablet 24 every 5 Medical (five) Branch minutes as needed for Chest pain. Not to exceed 3 doses nitroglycer 2020-[id number] 0.4 [facility] in 0.4 mg 1-12 mg under [facility] of sublingual 00:29: the tongue [place] tablet 24 every 5 Medical (five) Branch minutes as needed for Chest pain. Not to exceed 3 doses nitroglycer 2020-[id number] 0.4 [facility] in 0.4 mg 1-12 mg under [facility] of sublingual 00:29: the tongue [place] tablet 24 every 5 Medical (five) Branch minutes as needed for Chest pain. Not to exceed 3 doses nitroglycer 2020-[id number] 0.4 [facility] in 0.4 mg 1-12 mg under [facility] of sublingual 00:29: the tongue [place] tablet 24 every 5 Medical (five) Branch minutes as needed for Chest pain. Not to exceed 3 doses nitroglycer 2020-[id number] 0.4 [facility] in 0.4 mg 1-12 mg under [facility] of sublingual 00:29: the tongue [place] tablet 24 every 5 Medical (five) Branch minutes as needed for Chest pain. Not to exceed 3 doses nitroglycer 2020-[id number] 0.4 [facility] in 0.4 mg 1-12 mg under [facility]y of sublingual 00:29: the tongue [place] tablet 24 every 5 Medical (five) Branch minutes as needed for Chest pain. Not to exceed 3 doses nitroglycer 2020-[id number] 0.4 [facility] in 0.4 mg 1-12 mg under [facility] of sublingual 00:29: the tongue [place] tablet 24 every 5 Medical (five) Branch minutes as needed for Chest pain. Not to exceed 3 doses nitroglycer 2020-[id number] 0.4 [facility] in 0.4 mg 1-12 mg under ity of sublingual 00:29: the tongue [place] tablet 24 every 5 Medical (five) Branch minutes as needed for Chest pain. Not to exceed 3 doses aspirin 81 2020-0 Yes [id number] 81mg Take 81 mg [facility] mg EC 1-12 by mouth it[facility] of tablet 00:29: daily. [place] 24 Medical Branch nitroglycer 2020-[id number] 0.4 [facility] in 0.4 mg 1-12 mg under [facility] of sublingual 00:29: the tongue [place] tablet 24 every 5 Medical (five) Branch minutes as needed for Chest pain. Not to exceed 3 doses nitroglycer 2020-[id number] 0.4 [facility] in 0.4 mg 1-12 mg under [facility] of sublingual 00:29: the tongue [place] tablet 24 every 5 Medical (five) Branch minutes as needed for Chest pain. Not to exceed 3 doses ibuprofen 2020-0 Yes [id number] 600mg Take 600 [facility] 600 mg 1-12 mg by [facility] of tablet 00:29: mouth [place] 24 every 6 Medical (six) Branch hours as needed. nitroglycer 2020-[id number] 0.4 [facility] in 0.4 mg 1-12 mg under [facility] of sublingual 00:29: the tongue [place] tablet 24 every 5 Medical (five) Branch minutes as needed for Chest pain. Not to exceed 3 doses nitroglycer 2020-[id number] 0.4 [facility] in 0.4 mg [...] daily. Branch on inhaler nitroglycer 2020-[id number] 0.4 [facility] in 0.4 mg [...] Branch needed for Wheezing. nitroglycer 2020-[id number] 0.4 [facility] in 0.4 mg 1-12 mg under [facility] of sublingual 00:29: the tongue [place] tablet 24 every 5 Medical (five) Branch minutes as needed for Chest pain. Not to exceed 3 doses nitroglycer 2020-[id number] 0.4 [facility] in 0.4 mg 1-12 mg under ity of sublingual 00:29: the tongue [place] tablet 24 every 5 Medical (five) Branch minutes as needed for Chest pain. Not to exceed 3 doses nitroglycer 2020-[id number] 0.4 [facility] in 0.4 mg 1-12 mg under [facility]y of sublingual 00:29: the tongue [place] tablet 24 every 5 Medical (five) Branch minutes as needed for Chest pain. Not to exceed 3 doses nitroglycer 2020-[id number] 0.4 [facility] in 0.4 mg 1-12 mg under ity of sublingual 00:29: the tongue [place] tablet 24 every 5 Medical (five) Branch minutes as needed for Chest pain. Not to exceed 3 doses nitroglycer 2020-[id number] 0.4 [facility] in 0.4 mg 1-12 mg under it[facility] of sublingual 00:29: the tongue [place] tablet 24 every 5 Medical (five) Branch minutes as needed for Chest pain. Not to exceed 3 doses nitroglycer 2020-[id number] 0.4 [facility] in 0.4 mg 1-12 mg under it[facility] of sublingual 00:29: the tongue [place] tablet 24 every 5 Medical (five) Branch minutes as needed for Chest pain. Not to exceed 3 doses nitroglycer 2020-[id number] 0.4 [facility] in 0.4 mg 1-12 mg under it[facility] of sublingual 00:29: the tongue [place] tablet 24 every 5 Medical (five) Branch minutes as needed for Chest pain. Not to exceed 3 doses aspirin 81 2020-0 Yes [id number] 81mg Take 81 mg [facility] mg EC 1-12 by mouth it[facility] of tablet 00:29: daily. [place] 24 Medical Branch nitroglycer 2020-[id number] 0.4 [facility] in 0.4 mg 1-12 mg under [facility] of sublingual 00:29: the tongue [place] tablet 24 every 5 Medical (five) Branch minutes as needed for Chest pain. Not to exceed 3 doses nitroglycer 2020-[id number] 0.4 [facility] in 0.4 mg 1-12 mg under [facility] of sublingual 00:29: the tongue [place] tablet 24 every 5 Medical (five) Branch minutes as needed for Chest pain. Not to exceed 3 doses nitroglycer 2020-[id number] 0.4 [facility] in 0.4 mg 1-12 mg under it[facility] of sublingual 00:29: the tongue [place] tablet 24 every 5 Medical (five) Branch minutes as needed for Chest pain. Not to exceed 3 doses ibuprofen 2020-0 Yes [id number] 600mg Take 600 [facility] 600 mg 1-12 mg by [facility] of tablet 00:29: mouth [place] 24 every 6 Medical (six) Branch hours as needed. nitroglycer 2020-[id number] 0.4 [facility] in 0.4 mg [...] Branch needed for Wheezing. nitroglycer 2020-[id number] 0.4 [facility] in 0.4 mg 1-12 mg under it[facility] of sublingual 00:29: the tongue [place] tablet 24 every 5 Medical (five) Branch minutes as needed for Chest pain. Not to exceed 3 doses nitroglycer 2020-[id number] 0.4 [facility] in 0.4 mg 1-12 mg under ity of sublingual 00:29: the tongue [place] tablet 24 every 5 Medical (five) Branch minutes as needed for Chest pain. Not to exceed 3 doses nitroglycer 2020-[id number] 0.4 [facility] in 0.4 mg 1-12 mg under ity of sublingual 00:29: the tongue [place] tablet 24 every 5 Medical (five) Branch minutes as needed for Chest pain. Not to exceed 3 doses nitroglycer 2020-[id number] 0.4 [facility] in 0.4 mg 1-12 mg under ity of sublingual 00:29: the tongue [place] tablet 24 every 5 Medical (five) Branch minutes as needed for Chest pain. Not to exceed 3 doses nitroglycer 2020-[id number] 0.4 [facility] in 0.4 mg 1-12 mg under ity of sublingual 00:29: the tongue [place] tablet 24 every 5 Medical (five) Branch minutes as needed for Chest pain. Not to exceed 3 doses nitroglycer 2020-[id number] 0.4 [facility] in 0.4 mg 1-12 mg under ity of sublingual 00:29: the tongue [place] tablet 24 every 5 Medical (five) Branch minutes as needed for Chest pain. Not to exceed 3 doses aspirin 81 2020-0 Yes [id number] 81mg Take 81 mg [facility] mg EC 1-12 by mouth ity of tablet 00:29: daily. [place] [address] Medical Branch nitroglycer 2020-[id number] 0.4 [facility] in 0.4 mg 1-12 mg under ity of sublingual 00:29: the tongue [place] tablet 24 every 5 Medical (five) Branch minutes as needed for Chest pain. Not to exceed 3 doses nitroglycer 2020-[id number] 0.4 [facility] in 0.4 mg 1-12 mg under ity of sublingual 00:29: the tongue [place] tablet 24 every 5 Medical (five) Branch minutes as needed for Chest pain. Not to exceed 3 doses ibuprofen 2020-0 Yes [id number] 600mg Take 600 [facility] 600 mg 1-12 mg by [facility] of tablet 00:29: mouth [place] 24 every 6 Medical (six) Branch hours as needed. nitroglycer 2020-[id number] 0.4 [facility] in 0.4 mg [...] Branch needed for Wheezing. nitroglycer 2020-[id number] 0.4 [facility] in 0.4 mg 1-12 mg under [facility] of sublingual 00:29: the tongue [place] tablet 24 every 5 Medical (five) Branch minutes as needed for Chest pain. Not to exceed 3 doses nitroglycer 2020-[id number] 0.4 [facility] in 0.4 mg 1-12 mg under [facility]y of sublingual 00:29: the tongue [place] tablet 24 every 5 Medical (five) Branch minutes as needed for Chest pain. Not to exceed 3 doses nitroglycer 2020-[id number] 0.4 [facility] in 0.4 mg 1-12 mg under ity of sublingual 00:29: the tongue [place] tablet 24 every 5 Medical (five) Branch minutes as needed for Chest pain. Not to exceed 3 doses nitroglycer 2020-[id number] 0.4 [facility] in 0.4 mg 1-12 mg under ity of sublingual 00:29: the tongue [place] tablet 24 every 5 Medical (five) Branch minutes as needed for Chest pain. Not to exceed 3 doses nitroglycer 2020-[id number] 0.4 [facility] in 0.4 mg 1-12 mg under ity of sublingual 00:29: the tongue [place] tablet 24 every 5 Medical (five) Branch minutes as needed for Chest pain. Not to exceed 3 doses nitroglycer 2020-[id number] 0.4 [facility] in 0.4 mg 1-12 mg under ity of sublingual 00:29: the tongue [place] tablet 24 every 5 Medical (five) Branch minutes as needed for Chest pain. Not to exceed 3 doses aspirin 81 2020-0 Yes [id number] 81mg Take 81 mg [facility] mg EC 1-12 by mouth ity of tablet 00:29: daily. [place] [address] Medical Branch nitroglycer 2020-[id number] 0.4 [facility] in 0.4 mg 1-12 mg under ity of sublingual 00:29: the tongue [place] tablet 24 every 5 Medical (five) Branch minutes as needed for Chest pain. Not to exceed 3 doses nitroglycer 2020-[id number] 0.4 [facility] in 0.4 mg 1-12 mg under ity of sublingual 00:29: the tongue [place] tablet 24 every 5 Medical (five) Branch minutes as needed for Chest pain. Not to exceed 3 doses ibuprofen 2020-0 Yes [id number] 600mg Take 600 [facility] 600 mg 1-12 mg by it[facility] of tablet 00:29: mouth [place] 24 every 6 Medical (six) Branch hours as needed. nitroglycer 2020-[id number] 0.4 [facility] in 0.4 mg [...] Branch needed for Wheezing. nitroglycer 2020-[id number] 0.4 [facility] in 0.4 mg 1-12 mg under ity of sublingual 00:29: the tongue [place] tablet 24 every 5 Medical (five) Branch minutes as needed for Chest pain. Not to exceed 3 doses nitroglycer 2020-[id number] 0.4 [facility] in 0.4 mg 1-12 mg under ity of sublingual 00:29: the tongue [place] tablet 24 every 5 Medical (five) Branch minutes as needed for Chest pain. Not to exceed 3 doses nitroglycer 2020-[id number] 0.4 [facility] in 0.4 mg 1-12 mg under ity of sublingual 00:29: the tongue [place] tablet 24 every 5 Medical (five) Branch minutes as needed for Chest pain. Not to exceed 3 doses nitroglycer 2020-[id number] 0.4 [facility] in 0.4 mg 1-12 mg under ity of sublingual 00:29: the tongue [place] tablet 24 every 5 Medical (five) Branch minutes as needed for Chest pain. Not to exceed 3 doses aspirin 81 2020-0 Yes [id number] 81mg Take 81 mg [facility] mg EC -12 by mouth ity of tablet 00:29: daily. [place] [address] Medical Branch nitroglycer 2020-[id number] 0.4 [facility] in 0.4 mg 1-12 mg under ity of sublingual 00:29: the tongue [place] tablet 24 every 5 Medical (five) Branch minutes as needed for Chest pain. Not to exceed 3 doses nitroglycer 2020-[id number] 0.4 [facility] in 0.4 mg 1-12 mg under ity of sublingual 00:29: the tongue [place] tablet 24 every 5 Medical (five) Branch minutes as needed for Chest pain. Not to exceed 3 doses nitroglycer 2020-[id number] 0.4 [facility] in 0.4 mg 1-12 mg under ity of sublingual 00:29: the tongue [place] tablet 24 every 5 Medical (five) Branch minutes as needed for Chest pain. Not to exceed 3 doses levothyroxi 2020-0 2020- No [id number] 50ug Take 1 [facility] ne 50 mcg 06-19 tablet by [facility] of tablet 00:00: 05:59 mouth [place] 00 :00 every Medical morning Branch for 30 days. levothyroxi 2020- 2020- No [id number] 50ug Take 1 [facility] ne 50 mcg 06-19 tablet by ity of tablet 00:00: 05:59 mouth [place] 00 :00 every Medical morning Branch for 30 days. levothyroxi 2020- 2020- No [id number] 50ug Take 1 [facility] ne 50 mcg 06-19 tablet by ity of tablet 00:00: 05:59 mouth [place] 00 :00 every Medical morning Branch for 30 days. levothyroxi 2020- 2020- No [id number] 50ug Take 1 [facility] ne 50 mcg 06-19 tablet by ity of tablet 00:00: 05:59 mouth [place] 00 :00 every Medical morning Branch for 30 days. levothyroxi 2019- 2020- No [id number] 50ug Take 1 [facility] ne 50 mcg 06-19 tablet by [facility] of tablet 00:00: 05:59 mouth [place] 00 :00 every Medical morning Branch for 30 days. levothyroxi 2019- 2020- No [id number] 50ug Take 1 [facility] ne 50 mcg 06-19 tablet by ity of tablet 00:00: 05:59 mouth [place] 00 :00 every Medical morning Branch for 30 days. levothyroxi 2019- 2020- No [id number] 50ug Take 1 [facility] ne 50 mcg 06-19 tablet by ity of tablet 00:00: 05:59 mouth [place] 00 :00 every Medical morning Branch for 30 days. levothyroxi 2019- 2020- No [id number] 50ug Take 1 [facility] ne 50 mcg 06-19 tablet by ity of tablet 00:00: 05:59 mouth [place] 00 :00 every Medical morning Branch for 30 days. levothyroxi 2019- 2020- No [id number] 50ug Take 1 [facility] ne 50 mcg 06-19 tablet by ity of tablet 00:00: 05:59 mouth [place] 00 :00 every Medical morning Branch for 30 days. levothyroxi 2020- 2020- No [id number] 50ug Take 1 [facility] ne 50 mcg 06-19 tablet by it[facility] of tablet 00:00: 00:00 mouth [place] 00 :00 every Medical morning Branch for 30 days. levothyroxi 2020- 2020- No [id number] 50ug Take 1 [facility] ne 50 mcg 06-19 tablet by [facility]y of tablet 00:00: 00:00 mouth [place] 00 :00 every Medical morning Branch for 30 days. levothyroxi 2019- 2020- No [id number] 50ug Take 1 [facility] ne 50 mcg 06-19 tablet by [facility] of tablet 00:00: 00:00 mouth [place] 00 :00 every Medical morning Branch for 30 days. levothyroxi 2020- No [id number] 50ug Take 1 [facility] ne 50 mcg 06-19 tablet by ity of tablet 00:00: 00:00 mouth [place] 00 :00 every Medical morning Branch for 30 days. levothyroxi 2019- No [id number] 50ug Take 1 [facility] ne 50 mcg 06-19 tablet by ity of tablet 00:00: 00:00 mouth [place] 00 :00 every Medical morning Branch for 30 days. levothyroxi 2019- No [id number] 50ug Take 1 [facility] ne 50 mcg 06-19 tablet by [facility] of tablet 00:00: 00:00 mouth [place] 00 :00 every Medical morning Branch for 30 days. levothyroxi 2019- No [id number] 50ug Take 1 [facility] ne 50 mcg 06-19 tablet by [facility] of tablet 00:00: 00:00 mouth [place] 00 :00 every Medical morning Branch for 30 days. isosorbide 2020-0 Yes [id number] TAKE 1 [facility] mononitrate 1-10 07 TABLET BY ity of 30 mg 24 hr 00:00: MOUTH ONCE [place] tablet 00 DAILY Medical Branch isosorbide 2020-0 Yes [id number] TAKE 1 [facility] mononitrate 1-10 07 TABLET BY ity of 30 mg 24 hr 00:00: MOUTH ONCE [place] tablet 00 DAILY Medical Branch isosorbide 2020-0 Yes [id number] TAKE 1 [facility] mononitrate 1-10 07 TABLET BY ity of 30 mg 24 hr 00:00: MOUTH ONCE [place] tablet 00 DAILY Medical Branch isosorbide 2020-0 Yes [id number] TAKE 1 [facility] mononitrate 1-10 07 TABLET BY ity of 30 mg 24 hr 00:00: MOUTH ONCE [place] tablet 00 DAILY Medical Branch isosorbide 2020-0 Yes [id number] TAKE 1 [facility] mononitrate 1-10 07 TABLET BY ity of 30 mg 24 hr 00:00: MOUTH ONCE [place] tablet 00 DAILY Medical Branch isosorbide 2020-0 Yes [id number] TAKE 1 [facility] mononitrate 1-10 07 TABLET BY ity of 30 mg 24 hr 00:00: MOUTH ONCE [place] tablet 00 DAILY Medical Branch isosorbide 2020-0 Yes [id number] TAKE 1 [facility] mononitrate 1-10 07 TABLET BY ity of 30 mg 24 hr 00:00: MOUTH ONCE [place] tablet 00 DAILY Medical Branch isosorbide 2020-0 Yes [id number] TAKE 1 [facility] mononitrate 1-10 07 TABLET BY ity of 30 mg 24 hr 00:00: MOUTH ONCE [place] tablet 00 DAILY Medical Branch isosorbide 2020-0 Yes [id number] TAKE 1 [facility] mononitrate 1-10 07 TABLET BY ity of 30 mg 24 hr 00:00: MOUTH ONCE [place] tablet 00 DAILY Medical Branch isosorbide 2020-0 Yes [id number] TAKE 1 [facility] mononitrate 1-10 07 TABLET BY ity of 30 mg 24 hr 00:00: MOUTH ONCE [place] tablet 00 DAILY Medical Branch isosorbide 2020-0 Yes [id number] TAKE 1 [facility] mononitrate 1-10 07 TABLET BY ity of 30 mg 24 hr 00:00: MOUTH ONCE [place] tablet 00 DAILY Medical Branch isosorbide 2020-0 Yes [id number] TAKE 1 [facility] mononitrate 1-10 07 TABLET BY ity of 30 mg 24 hr 00:00: MOUTH ONCE [place] tablet 00 DAILY Medical Branch isosorbide 2020-0 Yes [id number] TAKE 1 [facility] mononitrate 1-10 07 TABLET BY ity of 30 mg 24 hr 00:00: MOUTH ONCE [place] tablet 00 DAILY Medical Branch isosorbide 2020-0 Yes [id number] TAKE 1 [facility] mononitrate 1-10 07 TABLET BY ity of 30 mg 24 hr 00:00: MOUTH ONCE [place] tablet 00 DAILY Medical Branch isosorbide 2020-0 Yes [id number] TAKE 1 [facility] mononitrate 1-10 07 TABLET BY ity of 30 mg 24 hr 00:00: MOUTH ONCE [place] tablet 00 DAILY Medical Branch isosorbide 2020-0 Yes [id number] TAKE 1 [facility] mononitrate 1-10 07 TABLET BY ity of 30 mg 24 hr 00:00: MOUTH ONCE [place] tablet 00 DAILY Medical Branch isosorbide 2020-0 Yes [id number] TAKE 1 [facility] mononitrate 1-10 07 TABLET BY ity of 30 mg 24 hr 00:00: MOUTH ONCE [place] tablet 00 DAILY Medical Branch isosorbide 2020-0 Yes [id number] TAKE 1 [facility] mononitrate 1-10 07 TABLET BY ity of 30 mg 24 hr 00:00: MOUTH ONCE [place] tablet 00 DAILY Medical Branch isosorbide 2020-0 Yes [id number] TAKE 1 [facility] mononitrate 1-10 07 TABLET BY ity of 30 mg 24 hr 00:00: MOUTH ONCE [place] tablet 00 DAILY Medical Branch isosorbide 2020-0 Yes [id number] TAKE 1 [facility] mononitrate 1-10 07 TABLET BY ity of 30 mg 24 hr 00:00: MOUTH ONCE [place] tablet 00 DAILY Medical Branch isosorbide 2020-0 Yes [id number] TAKE 1 [facility] mononitrate 1-10 07 TABLET BY ity of 30 mg 24 hr 00:00: MOUTH ONCE [place] tablet 00 DAILY Medical Branch isosorbide 2020-0 Yes [id number] TAKE 1 [facility] mononitrate 1-10 07 TABLET BY ity of 30 mg 24 hr 00:00: MOUTH ONCE [place] tablet 00 DAILY Medical Branch isosorbide 2020-0 Yes [id number] TAKE 1 [facility] mononitrate 1-10 07 TABLET BY ity of 30 mg 24 hr 00:00: MOUTH ONCE [place] tablet 00 DAILY Medical Branch isosorbide 2020-0 Yes [id number] TAKE 1 [facility] mononitrate 1-10 07 TABLET BY ity of 30 mg 24 hr 00:00: MOUTH ONCE [place] tablet 00 DAILY Medical Branch isosorbide 2020-0 Yes [id number] TAKE 1 [facility] mononitrate 1-10 07 TABLET BY ity of 30 mg 24 hr 00:00: MOUTH ONCE [place] tablet 00 DAILY Medical Branch isosorbide 2020-0 Yes [id number] TAKE 1 [facility] mononitrate 1-10 07 TABLET BY ity of 30 mg 24 hr 00:00: MOUTH ONCE [place] tablet 00 DAILY Medical Branch isosorbide 2020-0 Yes [id number] TAKE 1 [facility] mononitrate 1-10 07 TABLET BY ity of 30 mg 24 hr 00:00: MOUTH ONCE [place] tablet 00 DAILY Medical Branch isosorbide 2020-0 Yes [id number] TAKE 1 [facility] mononitrate 1-10 07 TABLET BY ity of 30 mg 24 hr 00:00: MOUTH ONCE [place] tablet 00 DAILY Medical Branch isosorbide 2020-0 Yes [id number] TAKE 1 [facility] mononitrate 1-10 07 TABLET BY ity of 30 mg 24 hr 00:00: MOUTH ONCE [place] tablet 00 DAILY Medical Branch isosorbide 2020-0 Yes [id number] TAKE 1 [facility] mononitrate 1-10 07 TABLET BY ity of 30 mg 24 hr 00:00: MOUTH ONCE [place] tablet 00 DAILY Medical Branch isosorbide 2020-0 Yes [id number] TAKE 1 [facility] mononitrate 1-10 07 TABLET BY ity of 30 mg 24 hr 00:00: MOUTH ONCE [place] tablet 00 DAILY Medical Branch isosorbide 2020-0 Yes [id number] TAKE 1 [facility] mononitrate 1-10 07 TABLET BY ity of 30 mg 24 hr 00:00: MOUTH ONCE [place] tablet 00 DAILY Medical Branch isosorbide 2020-0 Yes [id number] TAKE 1 [facility] mononitrate 1-10 07 TABLET BY ity of 30 mg 24 hr 00:00: MOUTH ONCE [place] tablet 00 DAILY Medical Branch isosorbide 2020-0 Yes [id number] TAKE 1 [facility] mononitrate 1-10 07 TABLET BY ity of 30 mg 24 hr 00:00: MOUTH ONCE [place] tablet 00 DAILY Medical Branch isosorbide 2020-0 Yes [id number] TAKE 1 [facility] mononitrate 1-10 07 TABLET BY ity of 30 mg 24 hr 00:00: MOUTH ONCE [place] tablet 00 DAILY Medical Branch isosorbide 2020-0 Yes [id number] TAKE 1 [facility] mononitrate 1-10 07 TABLET BY ity of 30 mg 24 hr 00:00: MOUTH ONCE [place] tablet 00 DAILY Medical Branch isosorbide 2020-0 Yes [id number] TAKE 1 [facility] mononitrate 1-10 07 TABLET BY ity of 30 mg 24 hr 00:00: MOUTH ONCE [place] tablet 00 DAILY Medical Branch isosorbide 2020-0 Yes [id number] TAKE 1 [facility] mononitrate 1-10 07 TABLET BY ity of 30 mg 24 hr 00:00: MOUTH ONCE [place] tablet 00 DAILY Medical Branch isosorbide 2020-0 Yes [id number] TAKE 1 [facility] mononitrate 1-10 07 TABLET BY ity of 30 mg 24 hr 00:00: MOUTH ONCE [place] tablet 00 DAILY Medical Branch isosorbide 2020-0 Yes [id number] TAKE 1 [facility] mononitrate 1-10 07 TABLET BY ity of 30 mg 24 hr 00:00: MOUTH ONCE [place] tablet 00 DAILY Medical Branch isosorbide 2020-0 Yes [id number] TAKE 1 [facility] mononitrate 1-10 07 TABLET BY ity of 30 mg 24 hr 00:00: MOUTH ONCE [place] tablet 00 DAILY Medical Branch isosorbide 2020-0 2020- No [id number] TAKE 1 [facility] mononitrate 1-10 05-14 07 TABLET BY it y of 30 mg 24 hr 00:00: 00:00 MOUTH ONCE [place] tablet 00 :00 DAILY [facility] carvedilol 2020-0 Yes [id number] 6.25mg Take 1 [facility] 6.25 mg 1-02 07 tablet [facility] tablet 00:00: mouth 2 [place] 00 (two) [facility] times [facility] daily with meals. atorvastati 2020-0 Yes [id number] 80mg Take 1 [facility] n 80 mg 1-02 07 tablet by [facility] tablet 00:00: mouth at [place] 00 bedtime. [facility] lisinopril 2020-0 Yes [id number] 10mg Take 1 [facility] 10 mg 1-02 07 tablet by [facility] tablet 00:00: mouth [place] 00 daily. [facility] clopidogrel 2020-0 Yes [id number] 75mg Take 1 [facility] 75 mg 1-02 07 tablet by [facility] tablet 00:00: mouth [place] 00 daily. [facility] carvedilol 2020-0 Yes [id number] 6.25mg Take 1 [facility] 6.25 mg 1-02 07 tablet by [facility] tablet 00:00: mouth 2 [place] 00 (two) [facility] times [facility] daily with meals. atorvastati 2020-0 Yes [id number] 80mg Take 1 [facility] n 80 mg 1-02 07 tablet by [facility] tablet 00:00: mouth at [place] 00 bedtime. [facility] lisinopril 2020-0 Yes [id number] 10mg Take 1 [facility] 10 mg 1-02 07 tablet by [facility] tablet 00:00: mouth [place] 00 daily. [facility] clopidogrel 2020-0 Yes [id number] 75mg Take 1 [facility] 75 mg 1-02 07 tablet by [facility] tablet 00:00: mouth [place] 00 daily. [facility] atorvastati 2020-0 Yes [id number] 80mg Take 1 [facility] n 80 mg 1-02 07 tablet by [facility] tablet 00:00: mouth at [place] 00 bedtime. [facility] lisinopril 2020-0 Yes [id number] 10mg Take 1 [facility] 10 mg 1-02 07 tablet by [facility] tablet 00:00: mouth [place] 00 daily. [facility] clopidogrel 2020-0 Yes [id number] 75mg Take 1 [facility] 75 mg 1-02 07 tablet by [facility] tablet 00:00: mouth [place] 00 daily. [facility] atorvastati 2020-0 Yes [id number] 80mg Take 1 [facility] n 80 mg 1-02 07 tablet by [facility] tablet 00:00: mouth at [place] 00 bedtime. [facility] lisinopril 2020-0 Yes [id number] 10mg Take 1 [facility] 10 mg 1-02 07 tablet by [facility] tablet 00:00: mouth [place] 00 daily. [facility] clopidogrel 2020-0 Yes [id number] 75mg Take 1 [facility] 75 mg 1-02 07 tablet by [facility] tablet 00:00: mouth [place] 00 daily. [facility] atorvastati 2020-0 Yes [id number] 80mg Take 1 [facility] n 80 mg 1-02 07 tablet by [facility] tablet 00:00: mouth at [place] 00 bedtime. [facility] lisinopril 2020-0 Yes [id number] 10mg Take 1 [facility] 10 mg 1-02 07 tablet by [facility] tablet 00:00: mouth [place] 00 daily. [facility] clopidogrel 2020-0 Yes [id number] 75mg Take 1 [facility] 75 mg 1-02 07 tablet by [facility] tablet 00:00: mouth [place] 00 daily. [facility] atorvastati 2020-0 Yes [id number] 80mg Take 1 [facility] n 80 mg 1-02 07 tablet by [facility] tablet 00:00: mouth at [place] 00 bedtime. [facility] lisinopril 2020-0 Yes [id number] 10mg Take 1 [facility] 10 mg 1-02 07 tablet by [facility] tablet 00:00: mouth [place] 00 daily. [facility] clopidogrel 2020-0 Yes [id number] 75mg Take 1 [facility] 75 mg 1-02 07 tablet by [facility] tablet 00:00: mouth [place] 00 daily. [facility] atorvastati 2020-0 Yes [id number] 80mg Take 1 [facility] n 80 mg 1-02 07 tablet by [facility] tablet 00:00: mouth at [place] 00 bedtime. [facility] lisinopril 2020-0 Yes [id number] 10mg Take 1 [facility] 10 mg 1-02 07 tablet by [facility] tablet 00:00: mouth [place] 00 daily. [facility] clopidogrel 2020-0 Yes [id number] 75mg Take 1 [facility] 75 mg 1-02 07 tablet by [facility] tablet 00:00: mouth [place] 00 daily. [facility] atorvastati 2020-0 Yes [id number] 80mg Take 1 [facility] n 80 mg 1-02 07 tablet by [facility] tablet 00:00: mouth at [place] 00 bedtime. [facility] lisinopril 2020-0 Yes [id number] 10mg Take 1 [facility] 10 mg 1-02 07 tablet by [facility] tablet 00:00: mouth [place] 00 daily. [facility] clopidogrel 2020-0 Yes [id number] 75mg Take 1 [facility] 75 mg 1-02 07 tablet by [facility] tablet 00:00: mouth [place] 00 daily. [facility] atorvastati 2020-0 Yes [id number] 80mg Take 1 [facility] n 80 mg 1-02 07 tablet by [facility] tablet 00:00: mouth at [place] 00 bedtime. [facility] lisinopril 2020-0 Yes [id number] 10mg Take 1 [facility] 10 mg 1-02 07 tablet by [facility] tablet 00:00: mouth [place] 00 daily. [facility] clopidogrel 2020-0 Yes [id number] 75mg Take 1 [facility] 75 mg 1-02 07 tablet by [facility] tablet 00:00: mouth [place] 00 daily. [facility] atorvastati 2020-0 Yes [id number] 80mg Take 1 [facility] n 80 mg 1-02 07 tablet by [facility] tablet 00:00: mouth at [place] 00 bedtime. [facility] lisinopril 2020-0 Yes [id number] 10mg Take 1 [facility] 10 mg 1-02 07 tablet by [facility] tablet 00:00: mouth [place] 00 daily. [facility] clopidogrel 2020-0 Yes [id number] 75mg Take 1 [facility] 75 mg 1-02 07 tablet by [facility] tablet 00:00: mouth [place] 00 daily. [facility] atorvastati 2020-0 Yes [id number] 80mg Take 1 [facility] n 80 mg 1-02 07 tablet by [facility] tablet 00:00: mouth at [place] 00 bedtime. [facility] lisinopril 2020-0 Yes [id number] 10mg Take 1 [facility] 10 mg 1-02 07 tablet by [facility] tablet 00:00: mouth [place] 00 daily. [facility] clopidogrel 2020-0 Yes [id number] 75mg Take 1 [facility] 75 mg 1-02 07 tablet by [facility] tablet 00:00: mouth [place] 00 daily. [facility] atorvastati 2020-0 Yes [id number] 80mg Take 1 [facility] n 80 mg 1-02 07 tablet by [facility] tablet 00:00: mouth at [place] 00 bedtime. [facility] lisinopril 2020-0 Yes [id number] 10mg Take 1 [facility] 10 mg 1-02 07 tablet by [facility] tablet 00:00: mouth [place] 00 daily. [facility] clopidogrel 2020-0 Yes [id number] 75mg Take 1 [facility] 75 mg 1-02 07 tablet by [facility] tablet 00:00: mouth [place] 00 daily. [facility] atorvastati 2020-0 Yes [id number] 80mg Take 1 [facility] n 80 mg 1-02 07 tablet by [facility] tablet 00:00: mouth at [place] 00 bedtime. [facility] lisinopril 2020-0 Yes [id number] 10mg Take 1 [facility] 10 mg 1-02 07 tablet by [facility] tablet 00:00: mouth [place] 00 daily. [facility] clopidogrel 2020-0 Yes [id number] 75mg Take 1 [facility] 75 mg 1-02 07 tablet by [facility] tablet 00:00: mouth [place] 00 daily. [facility] atorvastati 2020-0 Yes [id number] 80mg Take 1 [facility] n 80 mg 1-02 07 tablet by [facility] tablet 00:00: mouth at [place] 00 bedtime. [facility] lisinopril 2020-0 Yes [id number] 10mg Take 1 [facility] 10 mg 1-02 07 tablet by [facility] tablet 00:00: mouth [place] 00 daily. [facility] clopidogrel 2020-0 Yes [id number] 75mg Take 1 [facility] 75 mg 1-02 07 tablet by [facility] tablet 00:00: mouth [place] 00 daily. [facility] atorvastati 2020-0 Yes [id number] 80mg Take 1 [facility] n 80 mg 1-02 07 tablet by [facility] tablet 00:00: mouth at [place] 00 bedtime. [facility] lisinopril 2020-0 Yes [id number] 10mg Take 1 [facility] 10 mg 1-02 07 tablet by [facility] tablet 00:00: mouth [place] 00 daily. [facility] clopidogrel 2020-0 Yes [id number] 75mg Take 1 [facility] 75 mg 1-02 07 tablet by [facility] tablet 00:00: mouth [place] 00 daily. [facility] atorvastati 2020-0 Yes [id number] 80mg Take 1 [facility] n 80 mg 1-02 07 tablet by [facility] tablet 00:00: mouth at [place] 00 bedtime. [facility] lisinopril 2020-0 Yes [id number] 10mg Take 1 [facility] 10 mg 1-02 07 tablet by [facility] tablet 00:00: mouth [place] 00 daily. [facility] clopidogrel 2020-0 Yes [id number] 75mg Take 1 [facility] 75 mg 1-02 07 tablet by [facility] tablet 00:00: mouth [place] 00 daily. [facility] atorvastati 2020-0 Yes [id number] 80mg Take 1 [facility] n 80 mg 1-02 07 tablet by [facility] tablet 00:00: mouth at [place] 00 bedtime. [facility] lisinopril 2020-0 Yes [id number] 10mg Take 1 [facility] 10 mg 1-02 07 tablet by [facility] tablet 00:00: mouth [place] 00 daily. [facility] clopidogrel 2020-0 Yes [id number] 75mg Take 1 [facility] 75 mg 1-02 07 tablet by [facility] tablet 00:00: mouth [place] 00 daily. [facility] atorvastati 2020-0 Yes [id number] 80mg Take 1 [facility] n 80 mg 1-02 07 tablet by [facility] tablet 00:00: mouth at [place] 00 bedtime. [facility] lisinopril 2020-0 Yes [id number] 10mg Take 1 [facility] 10 mg 1-02 07 tablet by [facility] tablet 00:00: mouth [place] 00 daily. [facility] clopidogrel 2020-0 Yes [id number] 75mg Take 1 [facility] 75 mg 1-02 07 tablet by [facility] tablet 00:00: mouth [place] 00 daily. [facility] atorvastati 2020-0 Yes [id number] 80mg Take 1 [facility] n 80 mg 1-02 07 tablet by [facility] tablet 00:00: mouth at [place] 00 bedtime. [facility] lisinopril 2020-0 Yes [id number] 10mg Take 1 [facility] 10 mg 1-02 07 tablet by [facility] tablet 00:00: mouth [place] 00 daily. [facility] clopidogrel 2020-0 Yes [id number] 75mg Take 1 [facility] 75 mg 1-02 07 tablet by [facility] tablet 00:00: mouth [place] 00 daily. [facility] atorvastati 2020-0 Yes [id number] 80mg Take 1 [facility] n 80 mg 1-02 07 tablet by [facility] tablet 00:00: mouth at [place] 00 bedtime. [facility] lisinopril 2020-0 Yes [id number] 10mg Take 1 [facility] 10 mg 1-02 07 tablet by [facility] tablet 00:00: mouth [place] 00 daily. [facility] clopidogrel 2020-0 Yes [id number] 75mg Take 1 [facility] 75 mg 1-02 07 tablet by [facility] tablet 00:00: mouth [place] 00 daily. [facility] carvedilol 2020-0 Yes [id number] 6.25mg Take 1 [facility] 6.25 mg 1-02 07 tablet by [facility] tablet 00:00: mouth 2 [place] 00 (two) [facility] times [facility] daily with meals. atorvastati 2020-0 Yes [id number] 80mg Take 1 [facility] n 80 mg 1-02 07 tablet by [facility] tablet 00:00: mouth at [place] 00 bedtime. [facility] atorvastati 2020-0 Yes [id number] 80mg Take 1 [facility] n 80 mg 1-02 07 tablet by [facility] tablet 00:00: mouth at [place] 00 bedtime. [facility] lisinopril 2020-0 Yes [id number] 10mg Take 1 [facility] 10 mg 1-02 07 tablet by [facility] tablet 00:00: mouth [place] 00 daily. [facility] clopidogrel 2020-0 Yes [id number] 75mg Take 1 [facility] 75 mg 1-02 07 tablet by [facility] tablet 00:00: mouth [place] 00 daily. [facility] lisinopril 2020-0 Yes [id number] 10mg Take 1 [facility] 10 mg 1-02 07 tablet by [facility] tablet 00:00: mouth [place] 00 daily. [facility] clopidogrel 2020-0 Yes [id number] 75mg Take 1 [facility] 75 mg 1-02 07 tablet by [facility] tablet 00:00: mouth [place] 00 daily. [facility] atorvastati 2020-0 Yes [id number] 80mg Take 1 [facility] n 80 mg 1-02 07 tablet by [facility] tablet 00:00: mouth at [place] 00 bedtime. [facility] lisinopril 2020-0 Yes [id number] 10mg Take 1 [facility] 10 mg 1-02 07 tablet by [facility] tablet 00:00: mouth [place] 00 daily. [facility] clopidogrel 2020-0 Yes [id number] 75mg Take 1 [facility] 75 mg 1-02 07 tablet by [facility] tablet 00:00: mouth [place] 00 daily. [facility] atorvastati 2020-0 Yes [id number] 80mg Take 1 [facility] n 80 mg 1-02 07 tablet by [facility] tablet 00:00: mouth at [place] 00 bedtime. [facility] lisinopril 2020-0 Yes [id number] 10mg Take 1 [facility] 10 mg 1-02 07 tablet by [facility] tablet 00:00: mouth [place] 00 daily. [facility] clopidogrel 2020-0 Yes [id number] 75mg Take 1 [facility] 75 mg 1-02 07 tablet by [facility] tablet 00:00: mouth [place] 00 daily. [facility] atorvastati 2020-0 Yes [id number] 80mg Take 1 [facility] n 80 mg 1-02 07 tablet by [facility] tablet 00:00: mouth at [place] 00 bedtime. [facility] lisinopril 2020-0 Yes [id number] 10mg Take 1 [facility] 10 mg 1-02 07 tablet by [facility] tablet 00:00: mouth [place] 00 daily. [facility] clopidogrel 2020-0 Yes [id number] 75mg Take 1 [facility] 75 mg 1-02 07 tablet by [facility] tablet 00:00: mouth [place] 00 daily. [facility] atorvastati 2020-0 Yes [id number] 80mg Take 1 [facility] n 80 mg 1-02 07 tablet by [facility] tablet 00:00: mouth at [place] 00 bedtime. [facility] lisinopril 2020-0 Yes [id number] 10mg Take 1 [facility] 10 mg 1-02 07 tablet by [facility] tablet 00:00: mouth [place] 00 daily. [facility] clopidogrel 2020-0 Yes [id number] 75mg Take 1 [facility] 75 mg 1-02 07 tablet by [facility] tablet 00:00: mouth [place] 00 daily. [facility] atorvastati 2020-0 Yes [id number] 80mg Take 1 [facility] n 80 mg 1-02 07 tablet by [facility] tablet 00:00: mouth at [place] 00 bedtime. [facility] lisinopril 2020-0 Yes [id number] 10mg Take 1 [facility] 10 mg 1-02 07 tablet by [facility] tablet 00:00: mouth [place] 00 daily. [facility] clopidogrel 2020-0 Yes [id number] 75mg Take 1 [facility] 75 mg 1-02 07 tablet by [facility] tablet 00:00: mouth [place] 00 daily. [facility] atorvastati 2020-0 Yes [id number] 80mg Take 1 [facility] n 80 mg 1-02 07 tablet by [facility] tablet 00:00: mouth at [place] 00 bedtime. [facility] lisinopril 2020-0 Yes [id number] 10mg Take 1 [facility] 10 mg 1-02 07 tablet by [facility] tablet 00:00: mouth [place] 00 daily. [facility] clopidogrel 2020-0 Yes [id number] 75mg Take 1 [facility] 75 mg 1-02 07 tablet by [facility] tablet 00:00: mouth [place] 00 daily. [facility] atorvastati 2020-0 Yes [id number] 80mg Take 1 [facility] n 80 mg 1-02 07 tablet by [facility] tablet 00:00: mouth at [place] 00 bedtime. [facility] lisinopril 2020-0 Yes [id number] 10mg Take 1 [facility] 10 mg 1-02 07 tablet by [facility] tablet 00:00: mouth [place] 00 daily. [facility] clopidogrel 2020-0 Yes [id number] 75mg Take 1 [facility] 75 mg 1-02 07 tablet by [facility] tablet 00:00: mouth [place] 00 daily. [facility] atorvastati 2020-0 Yes [id number] 80mg Take 1 [facility] n 80 mg 1-02 07 tablet by [facility] tablet 00:00: mouth at [place] 00 bedtime. [facility] lisinopril 2020-0 Yes [id number] 10mg Take 1 [facility] 10 mg 1-02 07 tablet by [facility] tablet 00:00: mouth [place] 00 daily. [facility] clopidogrel 2020-0 Yes [id number] 75mg Take 1 [facility] 75 mg 1-02 07 tablet by [facility] tablet 00:00: mouth [place] 00 daily. [facility] atorvastati 2020-0 Yes [id number] 80mg Take 1 [facility] n 80 mg 1-02 07 tablet by [facility] tablet 00:00: mouth at [place] 00 bedtime. [facility] lisinopril 2020-0 Yes [id number] 10mg Take 1 [facility] 10 mg 1-02 07 tablet by [facility] tablet 00:00: mouth [place] 00 daily. [facility] clopidogrel 2020-0 Yes [id number] 75mg Take 1 [facility] 75 mg 1-02 07 tablet by [facility] tablet 00:00: mouth [place] 00 daily. [facility] carvedilol 2020-0 Yes [id number] 6.25mg Take 1 [facility] 6.25 mg 1-02 07 tablet by [facility] tablet 00:00: mouth 2 [place] 00 (two) [facility] daily with meals. atorvastati 2020-0 Yes [id number] 80mg Take 1 [facility] n 80 mg 1-02 07 tablet by [facility] tablet 00:00: mouth at [place] 00 bedtime. [facility] lisinopril 2020-0 Yes [id number] 10mg Take 1 [facility] 10 mg 1-02 07 tablet by [facility] tablet 00:00: mouth [place] 00 daily. [facility] clopidogrel 2020-0 Yes [id number] 75mg Take 1 [facility] 75 mg 1-02 07 tablet by [facility] tablet 00:00: mouth [place] 00 daily. [facility] atorvastati 2020-0 Yes [id number] 80mg Take 1 [facility] n 80 mg 1-02 07 tablet by [facility] tablet 00:00: mouth at [place] 00 bedtime. [facility] lisinopril 2020-0 Yes [id number] 10mg Take 1 [facility] 10 mg 1-02 07 tablet by [facility] tablet 00:00: mouth [place] 00 daily. [facility] atorvastati 2020-0 Yes [id number] 80mg Take 1 [facility] n 80 mg 1-02 07 tablet by [facility] tablet 00:00: mouth at [place] 00 bedtime. [facility] lisinopril 2020-0 Yes [id number] 10mg Take 1 [facility] 10 mg 1-02 07 tablet by [facility] tablet 00:00: mouth [place] 00 daily. [facility] clopidogrel 2020-0 Yes [id number] 75mg Take 1 [facility] 75 mg 1-02 07 tablet by [facility] tablet 00:00: mouth [place] 00 daily. [facility] clopidogrel 2020-0 Yes [id number] 75mg Take 1 [facility] 75 mg 1-02 07 tablet by [facility] tablet 00:00: mouth [place] 00 daily. [facility] atorvastati 2020-0 Yes [id number] 80mg Take 1 [facility] n 80 mg 1-02 07 tablet by [facility] tablet 00:00: mouth at [place] 00 bedtime. [facility] lisinopril 2020-0 Yes [id number] 10mg Take 1 [facility] 10 mg 1-02 07 tablet by [facility] tablet 00:00: mouth [place] 00 daily. [facility] clopidogrel 2020-0 Yes [id number] 75mg Take 1 [facility] 75 mg 1-02 07 tablet by [facility] tablet 00:00: mouth [place] 00 daily. [facility] atorvastati 2020-0 Yes [id number] 80mg Take 1 [facility] n 80 mg 1-02 07 tablet by [facility] tablet 00:00: mouth at [place] 00 bedtime. [facility] lisinopril 2020-0 Yes [id number] 10mg Take 1 [facility] 10 mg 1-02 07 tablet by [facility] tablet 00:00: mouth [place] 00 daily. [facility] clopidogrel 2020-0 Yes [id number] 75mg Take 1 [facility] 75 mg 1-02 07 tablet by [facility] tablet 00:00: mouth [place] 00 daily. [facility] atorvastati 2020-0 Yes [id number] 80mg Take 1 [facility] n 80 mg 1-02 07 tablet by [facility] tablet 00:00: mouth at [place] 00 bedtime. [facility] lisinopril 2020-0 Yes [id number] 10mg Take 1 [facility] 10 mg 1-02 07 tablet by [facility] tablet 00:00: mouth [place] 00 daily. [facility] clopidogrel 2020-0 Yes [id number] 75mg Take 1 [facility] 75 mg 1-02 07 tablet by [facility] tablet 00:00: mouth [place] 00 daily. [facility] atorvastati 2020-0 Yes [id number] 80mg Take 1 [facility] n 80 mg 1-02 07 tablet by [facility] tablet 00:00: mouth at [place] 00 bedtime. [facility] lisinopril 2020-0 Yes [id number] 10mg Take 1 [facility] 10 mg 1-02 07 tablet by [facility] tablet 00:00: mouth [place] 00 daily. [facility] clopidogrel 2020-0 Yes [id number] 75mg Take 1 [facility] 75 mg 1-02 07 tablet by [facility] tablet 00:00: mouth [place] 00 daily. [facility] atorvastati 2020-0 Yes [id number] 80mg Take 1 [facility] n 80 mg 1-02 07 tablet by [facility] tablet 00:00: mouth at [place] 00 bedtime. [facility] lisinopril 2020-0 Yes [id number] 10mg Take 1 [facility] 10 mg 1-02 07 tablet by [facility] tablet 00:00: mouth [place] 00 daily. [facility] clopidogrel 2020-0 Yes [id number] 75mg Take 1 [facility] 75 mg 1-02 07 tablet by [facility] tablet 00:00: mouth [place] 00 daily. [facility] atorvastati 2020-0 Yes [id number] 80mg Take 1 [facility] n 80 mg 1-02 07 tablet by [facility] tablet 00:00: mouth at [place] 00 bedtime. [facility] lisinopril 2020-0 Yes [id number] 10mg Take 1 [facility] 10 mg 1-02 07 tablet by [facility] tablet 00:00: mouth [place] 00 daily. [facility] clopidogrel 2020-0 Yes [id number] 75mg Take 1 [facility] 75 mg 1-02 07 tablet by [facility] tablet 00:00: mouth [place] 00 daily. [facility] carvedilol 2020-0 Yes [id number] 6.25mg Take 1 [facility] 6.25 mg 1-02 07 tablet by [facility] tablet 00:00: mouth 2 [place] 00 (two) [facility] daily with meals. atorvastati 2020-0 Yes [id number] 80mg Take 1 [facility] n 80 mg 1-02 07 tablet by [facility] tablet 00:00: mouth at [place] 00 bedtime. [facility] atorvastati 2020-0 Yes [id number] 80mg Take 1 [facility] n 80 mg 1-02 07 tablet by [facility] tablet 00:00: mouth at [place] 00 bedtime. [facility] lisinopril 2020-0 Yes [id number] 10mg Take 1 [facility] 10 mg 1-02 07 tablet by [facility] tablet 00:00: mouth [place] 00 daily. [facility] clopidogrel 2020-0 Yes [id number] 75mg Take 1 [facility] 75 mg 1-02 07 tablet by [facility] tablet 00:00: mouth [place] 00 daily. [facility] lisinopril 2020-0 Yes [id number] 10mg Take 1 [facility] 10 mg 1-02 07 tablet by [facility] tablet 00:00: mouth [place] 00 daily. [facility] clopidogrel 2020-0 Yes [id number] 75mg Take 1 [facility] 75 mg 1-02 07 tablet by [facility] tablet 00:00: mouth [place] 00 daily. [facility] atorvastati 2020-0 Yes [id number] 80mg Take 1 [facility] n 80 mg 1-02 07 tablet by [facility] tablet 00:00: mouth at [place] 00 bedtime. [facility] lisinopril 2020-0 Yes [id number] 10mg Take 1 [facility] 10 mg 1-02 07 tablet by [facility] tablet 00:00: mouth [place] 00 daily. [facility] clopidogrel 2020-0 Yes [id number] 75mg Take 1 [facility] 75 mg 1-02 07 tablet by [facility] tablet 00:00: mouth [place] 00 daily. [facility] atorvastati 2020-0 Yes [id number] 80mg Take 1 [facility] n 80 mg 1-02 07 tablet by [facility] tablet 00:00: mouth at [place] 00 bedtime. [facility] lisinopril 2020-0 Yes [id number] 10mg Take 1 [facility] 10 mg 1-02 07 tablet by [facility] tablet 00:00: mouth [place] 00 daily. [facility] clopidogrel 2020-0 Yes [id number] 75mg Take 1 [facility] 75 mg 1-02 07 tablet by [facility] tablet 00:00: mouth [place] 00 daily. [facility] atorvastati 2020-0 Yes [id number] 80mg Take 1 [facility] n 80 mg 1-02 07 tablet by [facility] tablet 00:00: mouth at [place] 00 bedtime. [facility] lisinopril 2020-0 Yes [id number] 10mg Take 1 [facility] 10 mg 1-02 07 tablet by [facility] tablet 00:00: mouth [place] 00 daily. [facility] clopidogrel 2020-0 Yes [id number] 75mg Take 1 [facility] 75 mg 1-02 07 tablet by [facility] tablet 00:00: mouth [place] 00 daily. [facility] atorvastati 2020-0 Yes [id number] 80mg Take 1 [facility] n 80 mg 1-02 07 tablet by [facility] tablet 00:00: mouth at [place] 00 bedtime. [facility] lisinopril 2020-0 Yes [id number] 10mg Take 1 [facility] 10 mg 1-02 07 tablet by [facility] tablet 00:00: mouth [place] 00 daily. [facility] clopidogrel 2020-0 Yes [id number] 75mg Take 1 [facility] 75 mg 1-02 07 tablet by [facility] tablet 00:00: mouth [place] 00 daily. [facility] atorvastati 2020-0 Yes [id number] 80mg Take 1 [facility] n 80 mg 1-02 07 tablet by [facility] tablet 00:00: mouth at [place] 00 bedtime. [facility] lisinopril 2020-0 Yes [id number] 10mg Take 1 [facility] 10 mg 1-02 07 tablet by [facility] tablet 00:00: mouth [place] 00 daily. [facility] clopidogrel 2020-0 Yes [id number] 75mg Take 1 [facility] 75 mg 1-02 07 tablet by [facility] tablet 00:00: mouth [place] 00 daily. [facility] atorvastati 2020-0 Yes [id number] 80mg Take 1 [facility] n 80 mg 1-02 07 tablet by [facility] tablet 00:00: mouth at [place] 00 bedtime. [facility] lisinopril 2020-0 Yes [id number] 10mg Take 1 [facility] 10 mg 1-02 07 tablet by [facility] tablet 00:00: mouth [place] 00 daily. [facility] clopidogrel 2020-0 Yes [id number] 75mg Take 1 [facility] 75 mg 1-02 07 tablet by [facility] tablet 00:00: mouth [place] 00 daily. [facility] carvedilol 2020-0 Yes [id number] 6.25mg Take 1 [facility] 6.25 mg 1-02 07 tablet by [facility] tablet 00:00: mouth 2 [place] 00 (two) [facility] daily with meals. atorvastati 2020-0 Yes [id number] 80mg Take 1 [facility] n 80 mg 1-02 07 tablet by [facility] tablet 00:00: mouth at [place] 00 bedtime. [facility] lisinopril 2020-0 Yes [id number] 10mg Take 1 [facility] 10 mg 1-02 07 tablet by [facility] tablet 00:00: mouth [place] 00 daily. [facility] clopidogrel 2020-0 Yes [id number] 75mg Take 1 [facility] 75 mg 1-02 07 tablet by [facility] tablet 00:00: mouth [place] 00 daily. [facility] atorvastati 2020-0 Yes [id number] 80mg Take 1 [facility] n 80 mg 1-02 07 tablet by [facility] tablet 00:00: mouth at [place] 00 bedtime. [facility] lisinopril 2020-0 Yes [id number] 10mg Take 1 [facility] 10 mg 1-02 07 tablet by [facility] tablet 00:00: mouth [place] 00 daily. [facility] atorvastati 2020-0 Yes [id number] 80mg Take 1 [facility] n 80 mg 1-02 tablet by [facility] tablet 00:00: mouth at [place] 00 bedtime. [facility] clopidogrel 2020-0 Yes [id number] 75mg Take 1 [facility] 75 mg 1-02 tablet by [facility] tablet 00:00: mouth [place] 00 daily. [facility] clopidogrel 2020-0 Yes [id number] 75mg Take 1 [facility] 75 mg 1-02 07 tablet by [facility] tablet 00:00: mouth [place] 00 daily. [facility] atorvastati 2020-0 Yes [id number] 80mg Take 1 [facility] n 80 mg -02 tablet by [facility] tablet 00:00: mouth at [place] 00 bedtime. [facility] lisinopril 2019- No [id number] 10mg Take 1 [facility] 10 mg -07 16-08 tablet by [facility] tablet 00:00: 00:00 mouth [place] 00 :00 daily. [facility] clopidogrel 2019- No [id number] 75mg Take 1 [facility] 75 mg 06-10-08 tablet by [facility] tablet 00:00: 00:00 mouth [place] 00 :00 daily. [facility] atorvastati 2019- No [id number] 80mg Take 1 [facility] n 80 mg 06-10-08 tablet by [facility] tablet 00:00: 00:00 mouth at [place] 00 :00 bedtime. [facility] carvedilol 2019- No [id number] 6.25mg Take 1 [facility] 6.25 mg 06-10 07 tablet by [facility] tablet 00:00: 00:00 mouth 2 [place] 00 :00 (two) [facility] daily with meals. carvedilol 2019- No [id number] 6.25mg Take 1 [facility] 6.25 mg 06-10 07 tablet by [facility] tablet 00:00: 00:00 mouth 2 [place] 00 :00 (two) [facility] daily with meals. atorvastati Yes [id number] 80mg Take 1 [facility] n 80 mg 6-21 tablet by [facility] tablet 00:00: mouth at [place] 00 bedtime. [facility] atorvastati Yes [id number] 80mg Take 1 [facility] n 80 mg 6-21 tablet by [facility] tablet 00:00: mouth at [place] 00 bedtime. [facility] isosorbide Yes [id number] TAKE 1 [facility] mononitrate 5-23 07 TABLET BY [facility] 30 mg 24 hr 00:00: MOUTH ONCE [place] tablet 00 DAILY [facility] lisinopril Yes [id number] 10mg Take 1 [facility] n[facility] 10 mg 5-23 tablet by [facility] tablet 00:00: mouth [place] 00 daily. [facility] isosorbide Yes [id number] TAKE 1 [facility] mononitrate 5-23 07 TABLET BY [facility] 30 mg 24 hr 00:00: MOUTH ONCE [place] tablet 00 DAILY [facility] lisinopril Yes [id number] 10mg Take 1 [facility] nivers 10 mg 5-23 tablet by [facility] tablet 00:00: mouth [place] 00 daily. [facility] nitroglycer Yes [id number] .4mg Place 0.4 [facility] in 0.4 mg 8-15 mg under ity of sublingual 20:47: the tongue [place] tablet 37 every 5 Medical (five) Branch minutes as needed for Chest pain. Not to exceed 3 doses nitroglycer Yes [id number] .4mg Place 0.4 Univers in 0.4 mg 8-15 mg under ity of sublingual 20:47: the tongue [place] tablet 37 every 5 Medical (five) Branch minutes as needed for Chest pain. Not to exceed 3 doses aspirin 81 Yes [id number] 81mg Take 81 mg Univers mg EC 8-15 by mouth ity of tablet 20:33: daily. [address] ibuprofen Yes [id number] 600mg Take 600 Univers 600 mg 8-15 mg by ity of tablet 20:33: mouth [place] 26 every 6 Medical (six) Branch hours as needed. aspirin 81 Yes [id number] 81mg Take 81 mg Univers mg EC 8-15 by mouth ity of tablet 20:33: daily. [address] ibuprofen Yes [id number] 600mg Take 600 Univers 600 mg 8-15 mg by ity of tablet 20:33: mouth [place] 26 every 6 Medical (six) Branch hours as needed. Vital Signs Vital Name Observation Time Observation Value Comments Source Systolic blood 2019-11-05 18:15:00 106 mm[Hg] Univer sity of [facility] Diastolic blood 2019-11-05 18:15:00 69 mm[Hg] Unive rsity of [facility] Heart rate 2019-11-05 18:15:00 87 /min [facility] Respiratory rate 2019-11-05 18:15:00 19 /min [facility] height 2019-11-05 18:15:00 185.4 cm [facility] Body weight 2019-11-05 18:15:00 89.948 kg [facility] BMI 2019-11-05 18:15:00 26.16 kg/m2 [facility]i ty [facility] [place] [facility] Oxygen saturation in 2019-11-05 18:15:00 96 /min University of Arterial blood by [facility] jeremiah Pulse oximetry Branch Systolic blood 2019-08-24 15:10:00 108 mm[Hg] Univer sity of [facility] [place] [facility] Diastolic blood 2019-08-24 15:10:00 7 mm[Hg] Unive rsity of [facility] [place] [facility] Heart rate 2019-08-24 15:10:00 86 /min [facility] [place] [facility] Respiratory rate 2019-08-24 15:10:00 19 /min Univ ersity [facility] [place] [facility] Body height 2019-08-24 15:10:00 185.4 cm [facility] [place] [facility] Body weight 2019-08-24 15:10:00 85.957 kg [facility] [place] [facility] BMI 2019-08-24 15:10:00 25.00 kg/m2 [facility] [place] [facility] Oxygen saturation in 2019-08-24 15:10:00 98 /min University of Arterial blood by [facility] Pulse oximetry Branch Systolic blood 2019-08-19 13:54:00 94 mm[Hg] Univer sity of [facility] [place] [facility] Diastolic blood 2019-08-19 13:54:00 63 mm[Hg] Unive rsity of [facility] [place] [facility] Heart rate 2019-08-19 13:54:00 73 /min [facility] [place] [facility] Body temperature 2019-08-19 13:54:00 36.11 Mely Univ ers[facility] [place] [facility] Respiratory rate 2019-08-19 13:54:00 20 /min Univ ers[facility] [place] [facility] Body height 2019-08-19 13:54:00 185.4 cm [facility] [place] [facility] Body weight 2019-08-19 13:54:00 86.637 kg [facility] [place] [facility] BMI 2019-08-19 13:54:00 25.20 kg/m2 [facility] [place] [facility] Systolic blood 2019-08-10 15:02:00 111 mm[Hg] Univer sity of [facility] [place] [facility] Diastolic blood 2019-08-10 15:02:00 70 mm[Hg] Unive rsity of [facility] [place] [facility] Heart rate 2019-08-10 15:02:00 83 /min [facility]i [facility] [place] [facility] Body temperature 2019-08-10 15:02:00 36.22 Mely Univ ers[facility] [place] [facility] Respiratory rate 2019-08-10 15:02:00 20 /min Univ ers[facility] [place] [facility] Body height 2019-08-10 15:02:00 185.4 cm [facility] [place] [facility] Body weight 2019-08-10 15:02:00 86.002 kg [facility] [place] [facility] BMI 2019-08-10 15:02:00 25.01 kg/m2 [facility] [place] [facility] Systolic blood 2019-08-09 00:00:00 113 mm[Hg] Univer sity of [facility] [place] [facility] Diastolic blood 2019-08-09 00:00:00 79 mm[Hg] Unive rsity of [facility] [place] [facility] Heart rate 2019-08-09 00:00:00 61 /min [facility] [place] [facility] Respiratory rate 2019-08-09 00:00:00 15 /min Univ ersity [facility] [place] [facility] Oxygen saturation in 2019-08-09 00:00:00 97 /min University of Arterial blood by [place] [employer] Pulse oximetry Branch Body temperature 2019-08-08 20:20:00 37 Mely Univ ers[facility] [place] [facility] Body height 2019-08-08 20:20:00 185.4 cm [facility] [place] [facility] Body weight 2019-08-08 20:20:00 86.183 kg [facility] [place] [facility] BMI 2019-08-08 20:20:00 25.07 kg/m2 [facility] [place] [facility] Systolic blood 2019-08-04 19:55:00 126 mm[Hg] Standing Univer sity of [facility] [place] [facility] Diastolic blood 2019-08-04 19:55:00 88 mm[Hg] Standing Unive rsity of [facility] [place] [facility] Heart rate 2019-08-04 19:55:00 174 /min [facility] [place] [facility] Respiratory rate 2019-08-04 19:50:00 25 /min Univ ersity [facility] [place] [facility] Oxygen saturation in 2019-08-04 19:50:00 98 /min University of Arterial blood by [employer] Pulse oximetry Branch Body height 2019-08-04 14:31:30 185.4 cm [facility] [place] [facility] Body weight 2019-08-04 14:31:30 86.183 kg [facility] [place] [facility] BMI 2019-08-04 14:31:30 25.07 kg/m2 Universi ty of [facility] Systolic blood 2019-07-29 20:21:00 106 mm[Hg] Univer sity of pressure [facility] Diastolic blood 2019-07-29 20:21:00 73 mm[Hg] Unive rsity of pressure [facility] Heart rate 2019-07-29 20:21:00 87 /min Universi ty of [facility] Respiratory rate 2019-07-29 20:21:00 19 /min Univ ersity of [facility] Body height 2019-07-29 20:21:00 185.4 cm Universi ty of [facility] Body weight 2019-07-29 20:21:00 84.959 kg Universi ty of [facility] BMI 2019-07-29 20:21:00 24.71 kg/m2 Universi ty of [facility] Oxygen saturation in 2019-07-29 20:21:00 98 /min University of Arterial blood by [facility] Pulse oximetry Branch Systolic blood 2019-07-22 14:38:00 100 mm[Hg] Univer sity of pressure [facility] Diastolic blood 2019-07-22 14:38:00 64 mm[Hg] Unive rsity of pressure [facility] Heart rate 2019-07-22 14:38:00 80 /min Universi ty of [facility] Body temperature 2019-07-22 14:38:00 36.11 Mely [address] of [facility] Respiratory rate 2019-07-22 14:38:00 18 /min Univ ersity of [facility] Body height 2019-07-22 14:38:00 185.[address] [facility] Body weight 2019-07-22 14:38:00 86.002 kg Universi ty of [facility] BMI 2019-07-22 14:38:00 25.01 kg/m2 Universi ty of [facility] Systolic blood 2019-07-20 22:23:13 107 mm[Hg] Univer sity of pressure [facility] Diastolic blood 2019-07-20 22:23:13 79 mm[Hg] Unive rsity of pressure [facility] Heart rate 2019-07-20 22:23:13 79 /min Universi ty of [facility] Respiratory rate 2019-07-20 22:23:13 18 /min Univ ersity of [facility] Oxygen saturation in 2019-07-20 22:23:13 98 /min University of Arterial blood by [facility] Pulse oximetry Branch Body temperature 2019-07-20 20:35:00 36.83 Mely Univ [facility] [place] [facility] Body height 2019-07-20 20:35:00 185.4 cm [facility] [place] [facility] [place] Body weight 2019-07-20 20:35:00 83.915 kg [facility] [place] [facility] BMI 2019-07-20 20:35:00 24.41 kg/m2 [facility] [place] [facility] Systolic blood 2019-07-09 16:22:00 113 mm[Hg] Univer sity of [facility] [place] [facility] Diastolic blood 2019-07-09 16:22:00 82 mm[Hg] Unive rsity of pressure [facility] Heart rate 2019-07-09 16:22:00 77 /min [facility] [place] [facility] Respiratory rate 2019-07-09 16:22:00 19 /min Univ ersity of [facility] Body height 2019-07-09 16:22:00 185.4 cm [facility] [place] [facility] Body weight 2019-07-09 16:22:00 85.14 kg [facility] [place] [facility] BMI 2019-07-09 16:22:00 24.76 kg/m2 [facility] [place] [facility] Oxygen saturation in 2019-07-09 16:22:00 99 /min University of Arterial blood by [facility] Pulse oximetry Branch Systolic blood 2019-06-24 14:36:00 105 mm[Hg] Univer sity of [facility] [place] [facility] Diastolic blood 2019-06-24 14:36:00 69 mm[Hg] Unive rsity of [facility] [place] [facility] Heart rate 2019-06-24 14:36:00 87 /min [facility] [place] [facility] Body temperature 2019-06-24 14:36:00 36.11 Mely Univ [facility] [place] [facility] Respiratory rate 2019-06-24 14:36:00 20 /min Univ ers[facility] [place] [facility] Body height 2019-06-24 14:36:00 182.9 cm [facility] [place] [facility] Body weight 2019-06-24 14:36:00 86.002 kg [facility] [place] [facility] BMI 2019-06-24 14:36:00 25.71 kg/m2 [facility] Oxygen saturation in 2019-06-24 14:36:00 98 /min University Arterial blood by [facility] Pulse oximetry Branch Procedures Procedure Date / Time Performing Clinician Source Performed PHYSICIAN CERTIFICATION 2019-09-29 05:01:00 Doctor Unassigned, [facility] STATEMENT [facility] [place] EXTERNAL PROVIDER - ADC 2019-08-17 05:01:00 Doctor Unassigned, [facility] CARDIOLOGY [facility] [place] TROPONIN I 2019-08-08 23:02:00 [facility]ix [facility] XR CHEST 2 VW 2019-08-08 21:02:52 Félix [facility] MAGNESIUM 2019-08-08 20:46:00 Félix [facility] TROPONIN I 2019-08-08 20:46:00 Félix [facility] COMP. METABOLIC PANEL 2019-08-08 20:46:00 Sarah Naranjo [facility] ([id number]) [facility] CBC WITH DIFFERENTIAL 2019-08-08 20:46:00 Félix [facility] EKG-12 LEAD 2019-08-08 20:43:16 [facility] POCT ACT LOW RANGE 2019-08-04 16:02:00 Celena Odell [facility] BASIC METABOLIC PANEL 2019-07-20 21:42:00 Bettina Whiteside [facility] (NA, K, CL, CO2, GLUCOSE, Medica l Branch BUN, CREATININE, CA) CBC WITH DIFFERENTIAL 2019-07-20 21:42:00 Bettina Whiteside [facility] CT HEAD WO CONTRAST 2019-07-20 21:23:58 Bettina Whiteside [facility] CONSENT/REFUSAL FOR 2019-07-20 20:26:11 Doctor Jacky [facility] DIAGNOSIS AND TREATMENT [facility] [place] EXTERNAL PROVIDER RECORDS 2019-07-07 06:01:00 Doctor Rico, [facility] [place] SCANNED LAB RESULTS 2019-06-17 06:01:00 Doctor Rico [facility] [place] [facility] AGREEMENTS AUTHORIZATIONS 2019-06-10 06:01:00 Doctor Unassigned, [facility] AND IRREVOCABLE [place] [facility] ASSIGNMENTS (FORM 2001) Encounters Start End Encounter Admission Attending Care Care Encounter Source Date/Time Date/Time Type Type Clinicians Facility Department ID 2020-03-17 2020-03-17 Telephone [facility] 1.2.840.114 [id number] Univers 00:00:00 00:00:00 [facility] [id number] it y [id number] [id number] [facility] 362 Branch 2020-03-16 2020-03-16 Refsukhdev Jean [facility] 1.2.840.114 [id number] Univers 00:00:00 00:00:00 Sendil Dameon Thompson [id number] ity [facility] [id number] [phone] [place] dical [place]al 059 [facility] 2020-03-16 2020-03-16 Refill Mariana Connolly [facility] 1.2.840.114 [id number] Univers 00:00:00 00:00:00 Y HEALTH [id number] i ty of [facility] [id number] [id number] [facility] 188 Branch 2020-02-22 2020-02-22 Outpatient R MIRANDA [facility] [id number] Univers 15:30:00 15:30:00 SENDIL [id number] ity [facility] [place] [facility] 2020-02-22 2020-02-22 Outpatient R MIRANDA [facility] [id number] Univers 15:30:00 15:30:00 SENDIL ity [facility] [place] [facility] 2020-02-15 2020-02-15 RefMariana Presley [facility] 1.2.840.114 [id number] Univers 00:00:00 00:00:00 Health at [id number] ity [id number] [id number] [facility] 387 Branch 2020-02-15 2020-02-15 Iraida Jean [facility] 1.2.840.114 [id number] Univers 00:00:00 00:00:00 Sendkj [place] [id number] ity [place] [id number] [phone] [address] 2020-01-27 2020-01-27 [facility] [id number] Univers 09:30:00 09:30:00 SENDIL ity [facility] [place] [facility] 2020-01-09 2020-01-09 Refill Mariana Connolly [facility] 1.2.840.114 [id number] Univers 00:00:00 00:00:00 Health at [id number] ity [place] [id number] [id number] [address] 2020-01-09 2020-01-09 [facility] 1.2.840.114 [id number] Univers 00:00:00 00:00:00 Sendkj [place] [id number] ity [place] [id number] [id number] [address] 2019-12-24 2019-12-24 [facility] [id number] Univers 14:30:00 14:30:00 SENDIL [id number] ity [facility] [place] [facility] 2019-12-15 2019-12-15 RefMariana Presley 1.2.840.114 [id number] Univers 00:00:00 00:00:00 [facility] [id number] it y [id number] [id number] [address] 2019-12-15 2019-12-15 Refill Mariana Connolly 1.2.840.114 [id number] Univers 00:00:00 00:00:00 [facility] [id number] it y [id number] [id number] [address] 2019-12-15 2019-12-15 Refill Mariana Connolly 1.2.840.114 [id number] Univers 00:00:00 00:00:00 [facility] [id number] it y [id number] [id number] [address] 2019-12-10 2019-12-10 Outpatient [facility] [id number] Univers 13:00:00 13:00:00 ity [facility] [place] [facility] 2019-11-08 2019-11-08 [facility] [id number] -[id number] Univers 10:30:00 10:30:00 SENDIL ity [facility] [place] [facility] 2019-11-05 2019-11-05 Office [facility] 1.2.840.114 [id number] Univers 12:55:50 13:25:50 Visit Soni [place] [id number] ity [place] [id number] [phone] Nc dic[address] 2019-11-05 2019-11-05 [facility] [id number] Univers 13:00:00 13:00:00 SENDIL [id number] ity [facility] [place] [facility] 2019-11-05 2019-11-05 Outpatient [facility] [id number] Univers 13:00:00 13:00:00 SENDIL ity [facility] [place] [facility] 2019-10-25 2019-10-25 [employer], [facility] Vascular Room [address] [place] [address] 1.2.840.114 [id number] Univers 13:01:55 14:01:55 Visit Noelle Leal [id number] ity [place] 4[place] [phone] N[place] dical [place]al [address] [place] [address] 2019-10-25 2019-10-25 [employer], [facility] Vascular Room [address] [place] [address] 1.2.840.114 [id number] Univers 13:01:38 14:01:38 Visit Noelle Leal [id number] ity [place] 4[place] [phone] Nc dical nal [address] [place] [address] 2019-10-25 2019-10-25 [employer], [facility] Vascular Room 1 - [facility] 1.2.840.114 [id number] Univers 13:01:11 14:01:11 Visit Noelle Leal [id number] ity of [place] 4[place].2.[place] [phone] Nc dic[address] 2019-10-25 2019-10-25 Outpatient R ELVIS [facility] [id number] Univers 13:00:00 13:00:[address] o f [facility] 2019-10-25 2019-10-25 Outpatient [facility] [id number] Univers 08:00:00 08:00:[id number] [facility] 2019-10-21 2019-10-21 Refill [facility] 1.2.840.114 [id number] Univers 00:00:00 00:00:00 Soni [place] [id number] it[place] 4[place] [phone] [address] 2019-10-21 2019-10-21 Telephone [facility] [id number] Univers 00:00:00 00:00:00 Soni Thompson [id number] ity [place] 4[place] [phone] [address] 2019-10-21 2019-10-21 Refill Mariana Connolly 1.2.840.114 [id number] Univers 00:00:00 00:00:00 [facility] [id number] it y [id number] [phone] [facility] [address] [place] 2019-09-29 2019-09-29 Orders Doctor MACKEY 1.2.840.114 [id number] Univers 00:00:00 00:00:00 Only Unassigned, KEVIN 350.1.13.10 ity of [place] [facility] [id number] Qasim as [phone] [facility] [address] [place] 2019-09-23 2019-09-23 Outpatient R BALJEET OCAMPO [facility] [id number] Univers 14:00:00 14:00:00 BALJEET OCAMPO [id number] i ty of [facility] 2019-09-23 2019-09-23 Outpatient R BALJEET OCAMPO [facility] [id number] Univers 14:00:00 14:00:00 BALJEET OCAMPO i ty of [facility] 2019-09-23 2019-09-23 Telemedici [facility] 1.2.840.114 [id number] Univers 08:10:14 08:25:14 ne Visit Baljeet [place] 350.1.13.10 ity [place] 4[place] [phone] [place] dical nal 085 [facility] 2019-08-27 2019-08-27 Telephone Mariana Connolly HARRY 1.2.840.114 [id number] Univers 00:00:00 00:00:00 [facility] [id number] it y [id number] [phone] [address] 2019-08-27 2019-08-27 Telephone Mariana Connolly HARRY 1.2.840.114 [id number] Univers 00:00:00 00:00:00 [facility] [id number] it y [id number] [id number] [address] 2019-08-24 2019-08-24 Office [facility] 1.2.840.114 [id number] Univers 09:57:39 21:24:52 Visit Soni [place] 350.1.13.10 ity [place] 4[place].2.[place] [phone] [place] dical nal 059 [facility] 2019-08-24 2019-08-24 Outpatient MIRANDA [facility] [id number] Univers 10:00:00 10:00:[id number] ity of [facility] 2019-08-24 2019-08-24 Outpatient R MIRANDA [facility] [id number] Univers 10:00:00 10:00:[address] [facility] 2019-08-19 2019-08-19 Office Care, Ang Primary [place] 1.2.840 .114 [id number] Univers 08:50:57 10:27:47 Visit Cathleen [facility] [id number] ity of [facility] 4.2.7.2.[place] [id number] [facility] [address] [place] 2019-08-19 2019-08-19 Outpatient R [facility] [id number] Univers 09:00:00 09:00:[id number] [facility] 2019-08-19 2019-08-19 Outpatient R CATHLEEN [id number] Univers 09:00:00 09:00:[address] [facility] 2019-08-17 2019-08-17 Telephone [facility] [id number] Univers 00:00:00 00:00:00 Sendil Dameon Thompson 350.1.13.10 it[place] 4[place] [phone] [place] dical nal 059 [facility] 2019-08-17 2019-08-17 Orders Doctor NARENDRA 1.2.840.114 [id number] Univers 00:00:00 00:00:00 Only Unassigned, KEVIN 350.1.13.10 ity of [place] [facility] [id number] Qasim as [phone] [address] 2019-08-12 2019-08-12 Outpatient R [facility] [id number] Univers 12:30:00 12:30:[address] [facility] 2019-08-12 2019-08-12 Outpatient R [facility] [id number] Univers 12:30:00 12:30:[address] [facility] 2019-08-10 2019-08-10 Office Care, Cathy Primary [place] 1.2.840 .114 [id number] Univers 08:56:13 11:20:18 [facility] [id number] ity of [facility] 4.2.7.2.[place] [id number] [place] [address] Branch TUAN 2019-08-10 2019-08-10 Outpatient R [facility] [id number] Univers 09:00:00 09:00:[address] [facility] 2019-08-10 2019-08-10 Outpatient R MARIANA CONNOLLY [facility] [id number] Univers 09:00:00 09:00:[address] [facility] 2019-08-08 2019-08-08 Emergency X Sarah NARANJO [facility] ERT [id number] Univers 14:12:59 18:59:[address] [facility] 2019-08-08 2019-08-08 Emergency Sarah Naranjo [facility] 1.2.840.114 [id number] Univers 14:12:59 18:59:00 [place] 350.1.13.10 i ty of [place] 4.2.7.2.686 [facility] [id number] [facility] 084 Branch 2019-08-06 2019-08-06 Telephone Mariana Connolly 1.2.840.114 [id number] Univers 00:00:00 00:00:00 [facility] 350.1.13.10 it y of [facility] 4.2.7.2.686 [facility] UNIT [phone] [facility] [address] 2019-08-04 2019-08-04 [facility] Celena Odell 1 .2.840.114 [id number] Univers 06:59:00 23:59:00 Encounter Jd Almanzar 350.1.1 3.10 ity of [facility] 4.2.7.2.686 [place] [id number] [facility] [address] 2019-08-04 2019-08-04 Outpatient R SHADI [facility] [id number] Univers 06:59:34 06:59:34 CELENA ity [facility] 2019-07-30 2019-07-30 Outpatient MIRANDA [facility] [id number] Univers 09:00:00 09:00:00 SENDIL [id number] ity [facility] [place] [facility] 2019-07-29 2019-07-29 Office Damaris [facility] 1.2.840.114 [id number] Univers 14:11:25 14:31:25 Visit Baljeet Jay 350.1.13.10 i ty of [place] 4[place] [phone] [place] dical nal 085 [facility] 2019-07-29 2019-07-29 Outpatient BALJEET OCAMPO [facility] [id number] Univers 14:20:00 14:20:00 HYACINTH OCAMPOKAEShanta [id number] i ty of [facility] 2019-07-27 2019-07-27 Telephone Joy Jean [id number] Univers 00:00:00 00:00:00 Soni [place] 350.1.13.10 ity of [facility] 4.2.7.2.686 Qasim as [id number] [facility] [address] [place] 2019-07-22 2019-07-22 Office Care, [facility] 1.2.840 .114 [id number] Univers 08:32:03 09:51:36 Visit Mariana Connolly [facility] 350.1.13.10 ity of [facility] 4.2.7.[place] [phone] [facility] [address] [place] 2019-07-22 2019-07-22 Outpatient R MARIANA CONNOLLY [facility] [id number] Univers 08:30:00 09:36:[address] [facility] 2019-07-20 2019-07-20 Emergency [facility] [id number] Univers 14:30:05 16:25:00 BETTINA ity [facility] 2019-07-20 2019-07-20 Emergency [facility] [id number] Univers 14:30:05 16:25:00 Bettina Thompson 350.1.13.10 i ty of [place] 4[place].2.[place] [id number] [facility] [address] [place] 2019-07-19 2019-07-19 Telephone Miranda [facility] [facility] [id number] Univers 00:00:00 00:00:00 Soni Thompson 350.1.13.10 [place] [phone] [place] dical nal 059 [facility] 2019-07-13 2019-07-13 Telephone Joy Jean [id number] Univers 00:00:00 00:00:00 Soni Wells 350.1.13.10 ity of [facility] 4.2.7.2.686 Qasim as [phone] [address] 2019-07-13 2019-07-13 Telephone Mariana Connolly HARRY 1.2.840.114 [id number] Univers 00:00:00 00:00:00 [facility] 350.1.13.10 it y of [facility] [place] [phone] [address] 2019-07-09 2019-07-09 [facility] 1.2.840.114 [id number] Univers 10:03:42 10:54:36 Visit Soni Thompson 350.1.13.10 [place] [phone] [place] dical nal 059 [facility] 2019-07-08 2019-07-08 Office Care, Ang Primary BRAZORIA 1.2.840 .114 [id number] Univers 09:02:47 11:33:18 Visit Mariana Connolly [facility] 350.1.13.10 [place] [phone] [address] 2019-07-08 2019-07-08 Outpatient R MARIANA CONNOLLY [facility] [id number] Univers 08:15:00 09:27:[address] [facility] 2019-07-07 2019-07-07 Orders Doctor NARENDRA 1.2.840.114 [id number] Univers 00:00:00 00:00:00 Only Unassigned, KEVIN 350.1.13.10 ity of [place] [facility] 4.2.7.2.686 Qasim as [phone] [place] [address] [address] 2019-06-24 2019-06-24 Office Care, Ang Primary B[place] 1.2.840 .114 [id number] Univers 08:33:50 09:29:22 Visit Mariana Connolly [facility] 350.1.13.10 it[place] [phone] [address] 2019-06-24 2019-06-24 Outpatient MARIANA YIN [facility] [id number] Univers 08:30:00 09:29:[address] [facility] 2019-06-18 2019-06-19 Outpatient VINAY MUHAMMAD [facility] [id number] Univers 16:58:40 17:07:[address] [facility] 2019-06-17 2019-06-17 Outpatient Chen CONNOLLY MARIANA [facility] [id number] Univers 08:15:00 09:09:[address] [facility] 2019-06-17 2019-06-17 Orders Doctor NARENDRA 1.2.840.114 [id number] Univers 00:00:00 00:00:00 Only Unassigned, KEVIN 350.1.13.10 ity of [place] [facility] 4.2.7.2.686 Qasim as [phone] [address] 2019-06-10 2019-06-10 Outpatient MARIANA YIN [facility] [id number] Univers 15:00:00 16:29:[address] [facility] 2019-06-10 2019-06-10 Orders Doctor MACKEY 1.2.840.114 [id number] Univers 00:00:00 00:00:00 Only Unassigned, KEVIN 350.1.13.10 ity of [place] [facility] 4.2.7.2.686 Qasim as [phone] [address] 2019-01-23 2019-01-23 Tuan Maurice 1.2.840.114 [id number] 00:00:00 00:00:00 [facility] 350.1.13.10 s and 4.2.7.2.686 Adult [phone] Primary [facility] 2019-01-23 2019-01-23 Tuan Maurice 1.2.840.114 [id number] Univers 00:00:00 00:00:00 [facility] 350.1.13.10 ity of [place] [phone] [facility] Primary [facility] Results Test Description Test Time Test Comments Results Result Comments Source SARS-CoV-2 (COVID-19), RT-PCR/TMA 2021-08-01 07:45:58 Test Item Value Reference Range Interpretation Comme nts SARS-CoV-2 INTERPRETATION POSITIVE SEE NOTE A S ARS-CoV-2 RNA DETECTEDPositive (test code = 05411) results are indicative of the presence of BRADY S-CoV-2 RNA;clinical co rrelation with patient history and other diagnosticinfor mation is necessary to de termine patient infection statu s.Positive results do not rule out bacterial infection or co -infectionwith other viruses. Positive and negative predic tive values oftesting are h ighly dependent on prevalence. SOURCE (test code = 34730) NOT SPECIFIED Note: Methodology is [employer] Real-Time RT-PC R. The expected result or ref erence range is NEGATIVE (Not D etected). For more information reg arding COVID-19 testing to incl ude clinicalinforma tion, methodology detail, intende d use, FDA authorization a ndrecommended fact sheets for arianna ents or healthcare providers, see NewTest Announcement: S ARS-CoV-2 (COVID-19) by N AAT at URL below (note,fact shee ts are provided by method given in report:https:// www.UserApp/cl inicians/client -communications/ Alternatively, see downloadable PDF fact sheet at:https://www. UserApp/COVID- 19-RT-PCR UNLESS OTHERWISE INDICATED, ALL TESTING PERFORMED ATCLINICAL PATH [facility]. [address] [place] [address] 78 4 LABORATORY DIRE CTOR: CASEY LIMA M.D. CLIA NUMBER [id number] [place]. [id number] TROPONIN [id number] 00:06:00 Test Item Value Reference Range Interpretation Comments TROPONIN I (test 0.010 ng/mL See_Comment [Automated code = 1627582445) message] The system which generated this result [...] ? Lab Interpretation Normal (test code = 71105-0) [facility] [id number] 21:39:49 No acute cardiopulmonary abnormality. Preliminary Report Dictated by Resident: Marcos Banegas MD., have reviewed this study and agree [...] acute cardiopulmonary abnormality.Preliminary Report Dictated by Resident: Marcos Issa MD., have reviewed this study and agree with the abovereport.[facility] [id number] 21:25:00 Test Item Value Reference Range Interpretation Comments TROPONIN I (test 0.007 ng/mL See_Comment [Automated code = 0401795445) message] The system which generated this result [...] ? Lab Interpretation Normal (test code = 72225-0) [facility] (15988)2019-08-08 21:14:00 Test Item Value Reference Range Interpretation Comments NA (test code = 141 mmol/L 135-145 5393549042) K (test code = 4.0 mmol/L 3.5-5 0962437575) CL (test code = 103 mmol/L 98-108 7793614740) CO2 TOTAL (test code = 27 mmol/L 23-31 2046373477) AGAP (test code = 2-16 9810784303) BUN (test code = 16 mg/dL 7-23 5232527127) GLUCOSE (test code = 126 mg/dL 70-110 H 7065867398) CREATININE (test code = 0.61 mg/dL 0.6-1.25 6916121857) TOTAL BILI (test code = 0.3 mg/dL 0.1-1.2 3876092937) CALCIUM (test code = 9.9 mg/dL 8.6-10.6 0155815266) T PROTEIN (test code = 8.0 g/dL 6.3-8.2 1210703650) ALBUMIN (test code = 5.0 g/dL 3.5-5 2696053842) ALK PHOS (test code = 80 U/L 34-122 8736825409) ALTv (test code = 45 U/L 5-50 1742-6) AST(SGOT) (test code = 35 U/L 13-40 5705090114) eGFR Calculation mL/min/1.73m2 (Non-) (test code = 8819486598) eGFR Calculation mL/min/1.73m2 () (test code = 6050885263) KRISHAN (test code = KRISHAN) Association of [...] tests). Lab Interpretation Abnormal (test code = 39467-6) [facility] Test Item Value Reference Range Interpretation Comments MAGNESIUM (test code = 8465887700) 1.9 mg/dL 1.7-2.4 Lab Interpretation (test code = Normal 74432-7) [facility] WITH [id number] 20:54:00 Test Item Value Reference Range Interpretation Comments WBC (test code = See_Comment [Automated message] 6690-2) The system [employer] generated this result transmitted ref erence range: 4.20 - 1 0.70 10*3/?L. The re ference range was not u sed to interpret this result as normal/abnor mal. RBC (test code = See_Comment [Automated message] 119-8) The system [employer] generated this result transmitted ref erence range: [...] RDW-SD (test code 42.7 fL 38.5-51.6 = 98341-3) RDW-CV (test code 12.8 % 12.1-15.4 = 788-0) PLT (test code = See_Comment [Automated message] 177-3) The system [employer] generated this result transmitted ref erence range: 150 - 32 8 10*3/?L. The re ference range was not u sed to interpret this result as normal/abnor mal. MPV (test code = 11.7 fL 9.8-13 94954-7) NRBC/100 WBC (test See_Comment [Automat ed message] code = 0930879015) The [employer] which generated this result transmitted ref erence range: 0.0 - 10 .0 /100 WBCs. The refer ence range was not u sed to interpret this result as normal/abnor mal. NRBC x10^3 (test <0.01 See_Comment [Automated message] code = 1415278351) The syste m which generated this result transmitted ref erence range: 10*3/?L. The reference range was not used to interpr et this result as normal/abnormal . GRAN MAT (NEUT) % 61.4 % (test code = 770-8) IMM GRAN % (test 0.60 % code = 9686675746) LYMPH % (test code 24.4 % = 736-9) MONO % (test code 10.3 % = 5905-5) EOS % (test code = 2.6 % 713-8) BASO % (test code 0.7 % = 706-2) GRAN MAT 5.48 10*3/uL 1.99-6.95 x10^3(ANC) (test code = 6598079305) IMM GRAN x10^3 0.05 10*3/uL 0-0.06 (test code = 8841774138) LYMPH x10^3 (test 2.17 10*3/uL 1.09-3.23 code = 731-0) MONO x10^3 (test 0.92 10*3/uL 0.36-1.02 code = 742-7) EOS x10^3 (test 0.23 10*3/uL 0.06-0.53 code = 711-2) BASO x10^3 (test 0.06 10*3/uL 0.01-0.09 code = 704-7) [facility] ACT LOW [id number] 16:07:00 Test Item Value Reference Range Interpretation Comments ACTLR (test code = See_Comment [Automat ed message] 3786010686) The system whic h generated this result transmitted ref erence range: 89 - 169 Seconds. The re ference range was not u sed to interpret this result as normal/abnor mal. Lab Interpretation (test Normal code = 88137-6) [facility] METABOLIC PANEL (NA, K, CL, CO2, GLUCOSE, BUN, CREATININE, CA)2019-07-20 22:03:00 Test Item Value Reference Range Interpretation Comments NA (test code = 140 mmol/L 135-145 5421459210) K (test code = 4.0 mmol/L 3.5-5 8982666981) CL (test code = 106 mmol/L 98-108 0289849840) CO2 TOTAL (test code = 27 mmol/L 23-31 1036885050) AGAP (test code = 2-16 8816449275) BUN (test code = 11 mg/dL 7-23 8067583934) GLUCOSE (test code = 92 mg/dL 70-110 7347908113) CREATININE (test code 0.64 mg/dL 0.6-1.25 = 4395040598) CALCIUM (test code = 9.9 mg/dL 8.6-10.6 7464981011) eGFR Calculation mL/min/1.73m2 (Non-) (test code = 5097023591) eGFR Calculation mL/min/1.73m2 () (test code = 9305980370) KRISHAN (test code = KRISHAN) Association of [...] or urine or abnormalities in imaging tests). [facility] WITH [id number] 21:52:00 Test Item Value Reference Range Interpretation Comments WBC (test code = See_Comment [Automated 6690-2) message] The sy stem which generated this result transmitted reference range : 4.20 - 10.70 10*3/?L. The reference range was not used to interpret this result as normal/abnormal . RBC (test code = See_Comment [Automated 789-8) message] The sy stem which generated this [...] RDW-SD (test code = 41.4 fL 38.5-51.6 51392-9) RDW-CV (test code = 12.6 % 12.1-15.4 788-0) PLT (test code = See_Comment [Automated 777-3) message] The sy stem which generated this result transmitted reference range : 150 - 328 10*3/ ?L. The reference r al was not used to interpret this result as normal/abnormal . MPV (test code = 11.0 fL 9.8-13 65006-3) NRBC/100 WBC (test See_Comment [Automat ed code = 6491514907) message] The system which generated this result transmitted reference range : 0.0 - 10.0 /100 WBCs. The refer ence range was not u sed to interpret th is result as normal/abnormal . NRBC x10^3 (test code <0.01 See_Comment [Auto mated = 1198126548) message] The s ystem which generated this result transmitted reference range : 10*3/?L. The reference range was not used to interpret this result as normal/abnormal . GRAN MAT (NEUT) % 57.0 % (test code = 770-8) IMM GRAN % (test code 0.30 % = 8714411085) LYMPH % (test code = 27.4 % 736-9) MONO % (test code = 11.9 % 5905-5) EOS % (test code = 2.9 % 713-8) BASO % (test code = 0.5 % 706-2) GRAN MAT x10^3(ANC) 4.97 10*3/uL 1.99-6.95 (test code = 6833264561) IMM GRAN x10^3 (test 0.03 10*3/uL 0-0.06 code = 7075075598) LYMPH x10^3 (test code 2.39 10*3/uL 1.09-3.23 = 731-0) MONO x10^3 (test code 1.04 10*3/uL 0.36-1.02 H = 742-7) EOS x10^3 (test code = 0.25 10*3/uL 0.06-0.53 711-2) BASO x10^3 (test code 0.04 10*3/uL 0.01-0.09 = 704-7) Lab Interpretation Abnormal (test code = 24678-6) [facility] [id number] 21:47:31 No acute intracranial abnormality. Preliminary Report [...] reviewed this study and agree with the abovereport.[facility] CenterBLOOD [id number] 12:00:00 Test Item Value Reference Range Interpretation Comments CULTURE (BEAKER) (test No growth in 5 days code = 1095) BLOOD [id number] 12:00:00 Test Item Value Reference Range Interpretation Comments CULTURE (BEAKER) (test No growth in 5 days code = 1095) [id number] 07:30:00 Test Item Value Reference Range Interpretation Comments MAGNESIUM (BEAKER) (test code = 1.9 mg/dL 1.6-2.6 627) BASIC METABOLIC [id number] 07:30:00 Test Item Value Reference Range Interpretation [...] 0-0 (BEAKER) (test code = 413) TROPONIN [id number] 22:02:00 Test Item Value Reference Range Interpretation Comments TROPONIN I (BEAKER) (test code = 63.70 ng/mL 0.00-0.03 HH 397) Troponin I (TnI) [...] neurological disease, and persistent tachyarrhythmia.TSH/FREE T4 IF [id number] 16:05:00 Test Item Value Reference Range Interpretation Comments THYROID STIMULATING HORMONE 1.30 uIU/mL 0.35-4.94 (BEAKER) (test code = 772) Draw next time labs are dueTROPONIN [id number] 14:46:00 Test Item Value Reference Range Interpretation Comments TROPONIN I (BEAKER) (test code = 100.07 ng/mL 0.00-0.03 [facility]) Troponin I (TnI) levels must be interpreted [...] acidosis, acute neurological disease, and persistent tachyarrhythmia.HEMOGLOBIN [id number] 12:38:00 Test Item Value Reference Range Interpretation Comments HEMOGLOBIN A1C (BEAKER) (test code = 5.2 % 4.3-6.1 368) RAPID DRUG SCREEN, [id number] 10:53:00 Test Item Value Reference Range Interpretation [...] situations. Chain of custody not maintained. Some cimo-cql-ocwxomr medications, as well as adulterants, may cause inaccurate results. Clinical correlation should be applied. A more comprehensive drug screen or confirmation of a detected drug may be performed upon request. LIPID [id number] 09:21:00 Test Item Value Reference Range Interpretation [...] Borderline 130-159 High 160-189 Very High >=190TROPONIN [id number] 07:55:00 Test Item Value Reference Range Interpretation [...] failure, acidosis, acute neurological disease, and persistent tachyarrhythmia.[id number] 06:39:00 Test Item Value Reference Range Interpretation [...] for patients with mechanical heart valves.URINALYSIS W/ [id number] 06:31:00 Test Item Value Reference Range Interpretation [...] 1574) SOURCE(BEAKER) (test code Urine, Straight = 2565) Catheter BASIC METABOLIC [id number] 06:09:00 Test Item Value Reference Range Interpretation [...] PATIEN TS. CBC W/PLT COUNT & AUTO [id number] 05:57:00 Test Item Value Reference Range Interpretation [...] 417) IMMATURE GRANULOCYTES-RELATIVE 1 % 0-1 PERCENT ([facility]) (test code = 2801) [id number] 01:38:00 Test Item Value Reference Range Interpretation Comments ACTIVATED CLOTTING TIME 131 sec TEST ED AT [place] [address] ([facility]) (test code = IFTIKHAR Siddiqui [place] [address]) [address] [id number] 01:38:00 Test Item Value Reference Range Interpretation Comments ACTIVATED CLOTTING TIME 147 sec TEST ED AT [place] [address] ([facility]) (test code = [place] [address]) [address] RAD, CHEST, 1 VIEW, NON [id number] 23:46:00Reason for exam:->STEMIShould this be performed at the bedside?->YesFINAL REPORT History: ME. Comparison: None. Findings: A single view of [...] MDReport Verified Date/Time: 09/26/2017 23:46:29 Reading Location: [address] Reading Room TROPONIN [id number] 22:47:00 Test Item Value Reference Range Interpretation Comments TROPONIN I (RUBIA) (test code = 56.52 ng/mL 0.00-0.03 397) Troponin I (TnI) levels [...] failure, acidosis, acute neurological disease, and persistent tachyarrhythmia.[id number] 22:39:00 Test Item Value Reference Range Interpretation Comments PARTIAL THROMBOPLASTIN TIME > seconds 22.5-36.0 HH (BEAKER) (test code = 760) B-TYPE NATRIURETIC FACTOR (BNP)2017-09-26 22:27:00 Test Item Value Reference Range Interpretation Comments B-TYPE NATRIURETIC PEPTIDE (BEAKER) 71 pg/mL 0-100 (test code = 700) [id number] 22:20:00 Test Item Value Reference Range Interpretation Comments MAGNESIUM (BEAKER) 1.9 mg/dL 1.6-2.6 Specimen slightly (test code = 627) hemolyzed [id number] 22:20:00 Test Item Value Reference Range Interpretation Comments PHOSPHORUS (BEAKER) 3.6 mg/dL 2.3-4.7 Specimen slightly (test code = 604) hemolyzed BASIC METABOLIC [id number] 22:20:00 Test Item Value Reference Range Interpretation [...] APPLICABLE FOR DIALYSIS PATIEN TS. HEPATIC FUNCTION [id number] 22:20:00 Test Item Value Reference Range Interpretation [...] Specimen slightly (test code = 347) hemolyzed PROTHROMBIN TIME/[id number] 22:19:00 Test Item Value Reference Range Interpretation [...] % 0-1 PERCENT (BEAKER) (test code = 2809) [id number] 21:55:00 Test Item Value Reference Range Interpretation Comments ACTIVATED CLOTTING TIME 208 sec TEST ED AT [place] [address] (BEAKER) (test code = IFTIKHAR [place] [address]) [address] [id number] 19:50:00 Test Item Value Reference Range Interpretation Comments ACTIVATED CLOTTING TIME 301 sec TEST ED AT [place] [address] (BEAKER) (test code = IFTIKHAR DHALIWAL [facility]) [address]"
[2021-10-01] MEDS ORDERED: LEVALBUTEROL 1.25 MG/3 ML NEB ONE
[2021-10-01] MEDS ORDERED: NA CHLORIDE 0.9% 500 ML ONE (00:01)
[2021-10-01 00:39] LABS: Absolute Lymphocytes (CBC) 3.2 K/uL (0.7-4.9); Hematocrit 42.2 % (39.6-49.0); Lymphocytes % 32.4 % (15.3-44.8); RBC Red Blood Cell Count 4.65 M/uL (4.33-5.43)
[2021-10-01 00:49] LABS: BUN Blood Urea Nitrogen 18 mg/dL (7-18); Bicarbonate 26 mmol/L (21-32); Glucose Level 98 mg/dL (74-106); Sodium Level 139 mmol/L (136-145)
[2021-10-01 00:50] LABS: Potassium 4.2 mmol/L (3.5-5.1)
--- NOTE | 2021-10-01 02:39 | ER ---
Nurse's Notes [facility] Name: Garcia Matta Age: 56 yrs Sex: Male : 1965 Arrival Date: 09/30/2021 Time: 21:15 Bed 2 Private MD: Diagnosis: Palpitations;Shortness of breath;COPD/ Chronic obstructive pulmonary disease with (acute) exacerbation Presentation: 09/30 21:54 Chief complaint: Patient states: shortness of breath starting a few hours ago. used my lg3 ProAir and Symbicort inhalers. no relief. my oxygen level has gotten down to 86% at home and my heart rate has gotten as high as 102. blood pressure was 108/76 at home. i just don't feel right. Coronavirus screen: Client denies travel out of the [place] in the last 14 days. At this time, the client does not indicate any symptoms associated with coronavirus-19. Ebola Screen: No symptoms or risks identified at this time. Initial Sepsis Screen: Does the patient meet any 2 criteria? No. Patient's initial sepsis screen is negative. Does the patient have a suspected source of infection? No. Patient's initial sepsis screen is negative. Risk Assessment: Do you want to hurt yourself or someone else? Patient reports no desire to harm self or others. Onset of symptoms was September 30, 2021. 21:54 Method Of Arrival: Ambulatory lg3 21:54 Acuity: CATARINA 3 lg3 Triage Assessment: 21:57 General: Appears in no apparent distress. comfortable, Behavior is calm, cooperative. lg3 Pain: Complains of pain in generalized Pain currently is 3 out of 10 on a pain scale. EENT: No deficits noted. No signs and/or symptoms were reported regarding the EENT system. Neuro: No deficits noted. Level of Consciousness is awake, alert, obeys commands, Oriented to person, place, time, situation. Cardiovascular: No deficits noted. Reports palpitations, shortness of breath. Respiratory: Reports shortness of breath pain with respiration Pain is 3 out of 10 on a pain scale. Airway is patent Trachea midline Respiratory effort is even, unlabored, Respiratory pattern is regular, symmetrical, Onset: The symptoms/episode began/occurred this morning, the patient has mild shortness of breath. GI: No deficits noted. No signs and/or symptoms were reported involving the gastrointestinal system. : No deficits noted. No signs and/or symptoms were reported regarding the genitourinary system. Derm: No deficits noted. No signs and/or symptoms reported regarding the dermatologic system. Skin is intact, is healthy with good turgor, Skin is dry, Skin is pink, warm \\T\\ dry. Musculoskeletal: No deficits noted. No signs and/or symptoms reported regarding the musculoskeletal system. Circulation, motion, and sensation intact. Capillary refill < 3 seconds, Range of motion: intact in all extremities. Historical: - Allergies: 21:57 No Known Allergies; lg3 - PMHx: 21:57 "aneursym on heart"; CAD; COPD; GERD; Heart Murmur; Hyperlipidemia; Hypertension; lg3 Myocardial infarction; Pneumothorax; - PSHx: 21:57 stents x 3; lg3 - Immunization history:: Adult Immunizations up to date, Client reports receiving the 2nd dose of the Covid vaccine. - Social history:: Smoking status: Patient reports the use of cigarette tobacco products, smokes one-half pack cigarettes per day, Patient/guardian denies using alcohol. Screenin/25 01:40 Abuse screen: Denies threats or abuse. Denies injuries from another. Nutritional lp1 screening: No deficits noted. Tuberculosis screening: No symptoms or risk factors identified. Fall Risk None identified. Assessment: 00:10 General: Appears in no apparent distress. Behavior is calm, cooperative, appropriate lp1 for age. Pain: Denies pain. Neuro: Level of Consciousness is awake, alert, obeys commands, Oriented to person, place, time, situation. Cardiovascular: Patient's skin is warm and dry. Rhythm is regular. Respiratory: Reports shortness of breath at rest Respiratory effort is even, unlabored, Breath sounds are clear bilaterally. GI: No signs and/or symptoms were reported involving the gastrointestinal system. : No signs and/or symptoms were reported regarding the genitourinary system. EENT: No signs and/or symptoms were reported regarding the EENT system. Derm: Skin is intact, Skin is dry, Skin is normal. Musculoskeletal: No signs and/or symptoms reported regarding the musculoskeletal system. 01:00 Reassessment: Patient appears in no apparent distress at this time. Patient is alert, lp1 oriented x 3, equal unlabored respirations, skin warm/dry/pink. Patient states symptoms have improved. Vital Signs: 09/30 21:54 BP 112 / 84; Pulse 86; Resp 17 S; Temp 98.0(O); Pulse Ox 98% on R/A; Weight 88.45 kg lg3 (R); Height 6 ft. 1 in. (185.42 cm) (R); Pain 3/10; 23:45 BP 134 / 97; Pulse 71; Resp 18; Pulse Ox 100% on R/A; lp1 10/01 00:30 BP 131 / 90; Pulse 69; Resp 18; Pulse Ox 100% on R/A; lp1 01:15 BP 128 / 89; Pulse 69; Resp 17; Pulse Ox 98% on R/A; lp1 02:21 BP 128 / 97; Pulse 67; Resp 19; Pulse Ox 99% on R/A; lp1 09/30 21:54 Body Mass Index 25.73 (88.45 kg, 185.42 cm) lg3 ED Course: 09/30 21:15 Patient arrived in ED. ag3 21:37 Abebe Frederick MD is Attending Physician. kdr 21:57 Triage completed. lg3 21:57 Arm band placed on right wrist. lg3 23:00 Patient has correct armband on for positive identification. Placed in gown. Bed in low lp1 position. dry house tender on. Pulse ox on. NIBP on. 23:28 XRAY Chest (1 view) In Process Unspecified. EDMS 10/01 00:18 Inserted saline lock: 22 gauge in right hand, using aseptic technique. Blood collected. lp1 00:32 Amirah Marquez RN is Primary Nurse. lp1 01:40 No provider procedures requiring assistance completed. lp1 02:30 IV discontinued, No redness/swelling at site. Pressure dressing applied. lp1 Administered Medications: 00:22 Drug: Xopenex (levalbuterol) 1.25 mg Route: Inhalation; lp1 00:22 Drug: NS 0.9% 500 ml Route: IV; Rate: bolus; Site: right hand; lp1 01:40 Follow up: IV Status: Completed infusion; IV Intake: 500ml lp1 Intake: 01:40 IV: 500ml; Total: 500ml. lp1 Outcome: 02:35 Discharged to home ambulatory. lp1 02:35 Condition: good 02:35 Discharge instructions given to patient, Instructed on discharge instructions, follow up and referral plans. medication usage, Demonstrated understanding of instructions, follow-up care, medications, Prescriptions given X 2. 02:38 Discharge ordered by . kdr 02:40 Patient left the ED. lp1 Signatures: Dispatcher [employer] EDMS Abebe Frederick MD MD kdr Pena, Laura RN RN lp1 Kristina Lundy3 Aurelia Jurado RN RN lg3 Corrections: (The following items were deleted from the chart) 03:19 03:19 Patient left the ED. lp1 lp1 03:23 00:10 Cardiovascular: Patient's skin is warm and dry. lp1 lp1
--- NOTE | 2021-10-01 02:39 | EDPHYS ---
Physician Documentation [facility] Name: Garcia Matta Age: 56 yrs Sex: Male : 1965 Arrival Date: 09/30/2021 Time: 21:15 Bed 2 Private MD: ED Physician Abebe Frederick HPI: 10/01 06:08 This 56 yrs old Unknown Male presents to ER via Ambulatory with complaints of Shortness kdr Of Breath, HIGH PULSE. 06:03 The patient has shortness of breath at rest, with light activity. Onset: The kdr symptoms/episode began/occurred suddenly, today. Duration: The symptoms are intermittent, with no pattern. The patient's shortness of breath is aggravated by coughing, exertion, light activity. Associated signs and symptoms: Pertinent positives: Palpitations, Pertinent negatives: chest pain, non-productive cough, productive cough, diaphoresis, dizziness, fever, hemoptysis, loss of consciousness, visual changes, vomiting. Severity of symptoms: At their worst the symptoms were mild moderate just prior to arrival, in the emergency department the symptoms are unchanged. The patient has not experienced similar symptoms in the past. The patient has not recently seen a physician. The patient states that he has had some shortness of breath that started a few hours ago. He has used his ProAir and Symbicort inhalers without sufficient relief. He also noted that his oxygen had gone down to 86% at home. He also felt that his heart rate had been elevated at 102. With a blood pressure of 108/76. In general he just does not feel well at this time.. Historical: - Allergies: 09/30 21:57 No Known Allergies; lg3 - PMHx: 21:57 "aneursym on heart"; CAD; COPD; GERD; Heart Murmur; Hyperlipidemia; Hypertension; lg3 Myocardial infarction; Pneumothorax; - PSHx: 21:57 stents x 3; lg3 - Immunization history:: Adult Immunizations up to date, Client reports receiving the 2nd dose of the Covid vaccine. - Social history:: Smoking status: Patient reports the use of cigarette tobacco products, smokes one-half pack cigarettes per day, Patient/guardian denies using alcohol. ROS: 10/01 06:03 Constitutional: Negative for fever, chills, and weight loss, Eyes: Negative for injury, kdr pain, redness, and discharge, ENT: Negative for injury, pain, and discharge, Neck: Negative for injury, pain, and swelling, Respiratory: Negative for shortness of breath, cough, wheezing, and pleuritic chest pain, Abdomen/GI: Negative for abdominal pain, nausea, vomiting, diarrhea, and constipation, Back: Negative for injury and pain, : Negative for injury, bleeding, discharge, and swelling, MS/Extremity: Negative for injury and deformity, Skin: Negative for injury, rash, and discoloration, Neuro: Negative for headache, weakness, numbness, tingling, and seizure activity. Psych: Negative for depression, anxiety, suicide ideation, homicidal ideation, and hallucinations, Allergy/Immunology: Negative for hives, rash, and allergies, Endocrine: Negative for neck swelling, polydipsia, polyuria, polyphagia, and marked weight changes, Hematologic/Lymphatic: Negative for swollen nodes, abnormal bleeding, and unusual bruising. Cardiovascular: Positive for palpitations, Negative for chest pain, edema, paroxysmal nocturnal dyspnea. Exam: 06:03 Constitutional: This is a well developed, well nourished patient who is awake, alert, kdr and in no acute distress. Head/Face: Normocephalic, atraumatic. Eyes: Pupils equal round and reactive to light, extra-ocular motions intact. Lids and lashes normal. Conjunctiva and sclera are non-icteric and not injected. Cornea within normal limits. Periorbital areas with no swelling, redness, or edema. Neck: Trachea midline, no thyromegaly or masses palpated, and no cervical lymphadenopathy. Supple, full range of motion without nuchal rigidity, or vertebral point tenderness. No Meningismus. Chest/axilla: Normal chest wall appearance and motion. Nontender with no deformity. No lesions are appreciated. Cardiovascular: Regular rate and rhythm with a normal S1 and S2. No gallops, murmurs, or rubs. Normal PMI, no JVD. No pulse deficits. Respiratory: Lungs have equal breath sounds bilaterally, clear to auscultation and percussion. No rales, rhonchi or wheezes noted. No increased work of breathing, no retractions or nasal flaring. Back: No spinal tenderness. No costovertebral tenderness. Full range of motion. Skin: Warm, dry with normal turgor. Normal color with no rashes, no lesions, and no evidence of cellulitis. MS/ Extremity: Pulses equal, no cyanosis. Neurovascular intact. Full, normal range of motion. Neuro: Awake and alert, GCS 15, oriented to person, place, time, and situation. Cranial nerves II-XII grossly intact. Motor strength 5/5 in all extremities. Sensory grossly intact. Cerebellar exam normal. Normal gait. Psych: Awake, alert, with orientation to person, place and time. Behavior, mood, and affect are within normal limits. 06:03 Abdomen/GI: Soft, non-tender, with normal bowel sounds. No distension or tympany. No guarding or rebound. No evidence of tenderness throughout. 06:03 Respiratory: the patient does not display signs of respiratory distress, Respirations: normal, Breath sounds: wheezing: that is mild, is heard diffusely. 06:03 Abdomen/GI: Inspection: abdomen appears normal, Bowel sounds: active, Palpation: abdomen is soft and non-tender. Vital Signs: 09/30 21:54 BP 112 / 84; Pulse 86; Resp 17 S; Temp 98.0(O); Pulse Ox 98% on R/A; Weight 88.45 kg lg3 (R); Height 6 ft. 1 in. (185.42 cm) (R); Pain 3/10; 23:45 BP 134 / 97; Pulse 71; Resp 18; Pulse Ox 100% on R/A; lp1 10/01 00:30 BP 131 / 90; Pulse 69; Resp 18; Pulse Ox 100% on R/A; lp1 01:15 BP 128 / 89; Pulse 69; Resp 17; Pulse Ox 98% on R/A; lp1 02:21 BP 128 / 97; Pulse 67; Resp 19; Pulse Ox 99% on R/A; lp1 09/30 21:54 Body Mass Index 25.73 (88.45 kg, 185.42 cm) lg3 MDM: 02:38 Patient medically screened. kdr 06:08 Data reviewed: vital signs, nurses notes, lab test result(s), radiologic studies. kdr Counseling: I had a detailed discussion with the patient and/or guardian regarding: the historical points, exam findings, and any diagnostic results supporting the discharge/admit diagnosis, lab results, radiology results, the need for outpatient follow up. ED course: Patient was stable in the ED and did not have any evidence of pulmonary dysfunction. His vital signs remained good on room air. He was happy with the care provided and the plan for discharge and follow-up. 09/30 22:50 Order name: Basic Metabolic Panel; Complete Time: 00:56 [facility] 09/30 22:50 Order name: CBC with Diff; Complete Time: 00:56 [facility] 09/30 22:50 Order name: Troponin HS; Complete Time: 00:56 [facility] 09/30 22:50 Order name: XRAY Chest (1 view) kdr 09/30 22:50 Order name: EKG; Complete Time: 22:51 [facility] 09/30 22:50 Order name: Cardiac monitoring; Complete Time: 23:48 [facility] 09/30 22:50 Order name: EKG - Nurse/Tech; Complete Time: 23:48 [facility] 09/30 22:50 Order name: IV Saline Lock; Complete Time: 00:23 [facility] 09/30 22:50 Order name: Labs collected and sent; Complete Time: 00:23 [facility] 09/30 22:50 Order name: O2 Per Protocol; Complete Time: 23:48 [facility] 09/30 22:50 Order name: O2 Sat Monitoring; Complete Time: 23:48 kdr Administered Medications: 00:22 Drug: Xopenex (levalbuterol) 1.25 mg Route: Inhalation; lp1 00:22 Drug: NS 0.9% 500 ml Route: IV; Rate: bolus; Site: right hand; lp1 01:40 Follow up: IV Status: Completed infusion; IV Intake: 500ml lp1 Disposition Summary: 10/01/21 02:38 Discharge Ordered Location: Home kdr Problem: an acute exacerbation kdr Symptoms: have improved kdr Condition: Stable kdr Diagnosis - Palpitations kdr - Shortness of breath kdr - COPD/ Chronic obstructive pulmonary disease with (acute) exacerbation kdr Followup: kdr - With: Private Physician - When: 2 - 3 days - Reason: If symptoms return, Further diagnostic work-up, Recheck today's complaints, Continuance of care, Re-evaluation by your physician Discharge Instructions: - Discharge Summary Sheet kdr - Shortness of Breath, Adult, [id number] kdr - Palpitations, [id number] kdr - Chronic Obstructive Pulmonary Disease Exacerbation, [id number] kdr Forms: - Blank Medication kdr - Medication Reconciliation Form kdr - Thank You Letter kdr - Antibiotic Education kdr - Prescription Opioid Use kdr Prescriptions: - Medrol (Russell) 4 mg Oral Tablets, Dose Pack - take 1 tablet by ORAL route as directed - follow package instructions; 1 kdr packet; Refills: 0, Product Selection Permitted - Albuterol Sulfate 2.5 mg /3 mL (0.083 %) Inhalation Solution for Nebulization - inhale 1 unit by NEBULIZATION route every 8 hours As needed; 1 box; Refills: 0, kdr Product Selection Permitted Signatures: Dispatcher [employer] Abebe Burdick MD MD kdr Amirah Marquez, RN RN lp1 Aurelia Jurado RN RN lg3
[2021-10-01 03:37] VITALS: TEMP 98
[2021-10-01 03:42] VITALS: BP 128/97; O2SAT 99
--- NOTE | 2021-10-01 19:42 | RAD REPORT ---
EXAM DESCRIPTION: RAD - Chest Single View - 09/30/2021 11:26 pm CLINICAL HISTORY: Chest pain. COMPARISON: None. TECHNIQUE: Single view AP chest radiograph(s). FINDINGS: No pulmonary infiltrate. Trace increased perihilar markings. No pleural effusion. No pneum othorax. Nonenlarged cardiomediastinal silhouette. No significant osseous abnormality. IMPRESSION: No acute cardiopulmonary abnormality identified by radiograph. Electronically signed by: Elizabeth Garcia MD 09/30/2021 11:44 PM CDT Due to temporary technical issues with the PACS/Fluency reporting system, reports are being signed by the in house radiologists without review as a courtesy to insure prompt reporting. The interpreting radiologist is fully responsible for the content of the report
== END 2021-10-01 03:19 | disposition home or self-care (01) ==
LOC: ER 21:12
DX: J44.1 Chronic obstructive pulmonary disease with (acute) exacerbation (principal); R00.2 Palpitations; E78.5 Hyperlipidemia, unspecified; I25.10 Atherosclerotic heart disease of native coronary artery without angina pectoris; I25.2 Old myocardial infarction; K21.9 Gastro-esophageal reflux disease without esophagitis
CPT/HCPCS: 36415; 71045; 80048; 84484; 85025; 93005; 96360; 99285

== ENCOUNTER 2021-12-05 23:37 | Emergency (ER) | payer SELFPAY ==
[2021-12-06 03:21] LABS: Absolute Lymphocytes (CBC) 2.6 K/uL (0.7-4.9); Hematocrit 37.8 % (39.6-49.0); Lymphocytes % 28.4 % (15.3-44.8); MPV 9.5 fL (7.6-11.3); RBC Red Blood Cell Count 4.18 M/uL (4.33-5.43)
[2021-12-06] MEDS ORDERED: NA CHLORIDE 0.9% 1,000 ML ONE (03:24)
[2021-12-06 03:45] LABS: Potassium 3.8 mmol/L (3.5-5.1); Troponin High Sensitivity 8.9 pg/mL (<58.9)
--- NOTE | 2021-12-06 05:47 | EDPHYS ---
Physician Documentation [facility] Name: Garcia Matta Age: 56 yrs Sex: Male : 1965 Arrival Date: 12/05/2021 Time: 23:39 Bed 13 Private MD: ED Physician Abebe Frederick Historical: - Allergies: 12/05 23:46 No Known Allergies; ld1 - PMHx: 23:46 "aneursym on heart"; CAD; COPD; GERD; Heart Murmur; Hyperlipidemia; Hypertension; ld1 Myocardial infarction; Pneumothorax; - PSHx: 23:46 stents x 3; ld1 - Immunization history:: Adult Immunizations up to date, Client reports receiving the 2nd dose of the Covid vaccine. - Social history:: Smoking status: Patient reports the use of cigarette tobacco products, smokes one-half pack cigarettes per day, Patient/guardian denies using alcohol, street drugs. Vital Signs: 23:45 BP 105 / 81; Pulse 82; Resp 18; Temp 97.7(TE); Pulse Ox 95% on R/A; Weight 88.45 kg; ld1 Height 6 ft. 1 in. (185.42 cm); Pain 4/10; 12/06 02:57 BP 111 / 72 Supine; Pulse 65; vc1 02:59 BP 108 / 82 Sitting; Pulse 74; vc1 03:00 BP 92 / 69 Standing; Pulse 87; vc1 04:00 BP 108 / 78; Pulse 61; Resp 16; Pulse Ox 100% ; vc1 04:58 BP 108 / 77 Supine; Pulse 64; vc1 05:00 BP 107 / 77 Sitting; Pulse 67; vc1 05:01 BP 112 / 78 Standing; Pulse 76; vc1 12/05 23:45 Body Mass Index 25.73 (88.45 kg, 185.42 cm) ld1 MDM: 05:46 Patient medically screened. kdr 12/06 02:40 Order name: Basic Metabolic Panel; Complete Time: 04:24 kdr 12/06 02:40 Order name: CBC with Diff; Complete Time: 04:24 kdr 12/06 02:40 Order name: NT PRO-BNP; Complete Time: 04:24 kdr 12/06 02:40 Order name: Troponin HS; Complete Time: 04:24 kdr 12/06 02:40 Order name: XRAY Chest (1 view) kdr 12/06 02:40 Order name: CT Head Brain wo Cont kdr 12/05 23:55 Order name: EKG - Nurse/Tech; Complete Time: 23:55 ld1 12/06 02:40 Order name: EKG; Complete Time: 02:41 kdr 12/06 02:40 Order name: Cardiac monitoring; Complete Time: 03:57 kdr 12/06 02:40 Order name: IV Saline Lock; Complete Time: 03:27 kdr 12/06 02:40 Order name: Labs collected and sent; Complete Time: 03:27 kdr 12/06 02:40 Order name: O2 Per Protocol; Complete Time: 03:27 kdr 12/06 02:40 Order name: O2 Sat Monitoring; Complete Time: 03:27 kdr 12/06 02:40 Order name: Orthostatic Blood Pressure; Complete Time: 03:27 kdr 12/06 04:26 Order name: Orthostatic Blood Pressure: Repeat after fluid bolus; Complete Time: 05:07 kdr Administered Medications: 03:57 Drug: NS 0.9% 1000 ml Route: IV; Rate: 1 bolus; Site: left antecubital; vc1 Disposition Summary: 12/06/21 05:46 Discharge Ordered Location: Home kdr Problem: new kdr Symptoms: have improved kdr Condition: Stable kdr Diagnosis - Orthostatic hypotension kdr - Dizziness and giddiness kdr Followup: kdr - With: Private Physician - When: 2 - 3 days - Reason: If symptoms return, Further diagnostic work-up, Recheck today's complaints, Continuance of care, Re-evaluation by your physician Discharge Instructions: - Discharge Summary Sheet kdr - Orthostatic Hypotension kdr - Near-Syncope, [id number] kdr - Dizziness, [id number] kdr Forms: - Medication Reconciliation Form kdr - Thank You Letter kdr Signatures: Dispatcher [employer] Abebe Burdick MD MD kdr Ana Kumar RN RN ld1 Cheri Oates RN RN vc1
--- NOTE | 2021-12-06 05:47 | ER ---
Nurse's Notes [facility] Name: Garcia Matta Age: 56 yrs Sex: Male : 1965 Arrival Date: 12/05/2021 Time: 23:39 Bed 13 Private MD: Diagnosis: Orthostatic hypotension;Dizziness and giddiness Presentation: 12/05 23:45 Chief complaint: Patient states: Chest pain, dizziness, and lightheaded X 3 days. ld1 Tonight it got much worse and I fell down, denies hitting head. Coronavirus screen: At this time, the client does not indicate any symptoms associated with coronavirus-19. Ebola Screen: No symptoms or risks identified at this time. Initial Sepsis Screen: Does the patient meet any 2 criteria? No. Patient's initial sepsis screen is negative. Does the patient have a suspected source of infection? No. Patient's initial sepsis screen is negative. Risk Assessment: Do you want to hurt yourself or someone else? Patient reports no desire to harm self or others. Onset of symptoms was December 05, 2021. 23:45 Method Of Arrival: Ambulatory ld1 23:45 Acuity: CATARINA 3 ld1 Triage Assessment: 23:46 General: Appears in no apparent distress. comfortable, Behavior is calm, cooperative, ld1 appropriate for age. Pain: Complains of pain in chest Pain does not radiate. Pain currently is 4 out of 10 on a pain scale. at worst was 7 out of 10 on a pain scale. Quality of pain is described as throbbing. EENT: No signs and/or symptoms were reported regarding the EENT system. Neuro: Level of Consciousness is awake, alert, obeys commands, Oriented to person, place, time, situation. Cardiovascular: Capillary refill < 3 seconds Patient's skin is warm and dry. Respiratory: Airway is patent Respiratory effort is even, unlabored. GI: Abdomen is flat, non-distended. : No signs and/or symptoms were reported regarding the genitourinary system. Derm: No signs and/or symptoms reported regarding the dermatologic system. Musculoskeletal: No signs and/or symptoms reported regarding the musculoskeletal system. Historical: - Allergies: 23:46 No Known Allergies; ld1 - PMHx: 23:46 "aneursym on heart"; CAD; COPD; GERD; Heart Murmur; Hyperlipidemia; Hypertension; ld1 Myocardial infarction; Pneumothorax; - PSHx: 23:46 stents x 3; ld1 - Immunization history:: Adult Immunizations up to date, Client reports receiving the 2nd dose of the Covid vaccine. - Social history:: Smoking status: Patient reports the use of cigarette tobacco products, smokes one-half pack cigarettes per day, Patient/guardian denies using alcohol, street drugs. Screenin/30 02:00 Abuse screen: Denies threats or abuse. Nutritional screening: No deficits noted. vc1 Tuberculosis screening: No symptoms or risk factors identified. Fall Risk None identified. Assessment: 02:00 Reassessment: See triage assessment. Reassessment: No changes from previously vc1 documented assessment. 03:00 Reassessment: Patient and/or family updated on plan of care and expected duration. Pain vc1 level reassessed. Patient is alert, oriented x 3, equal unlabored respirations, skin warm/dry/pink. 04:00 Reassessment: Patient and/or family updated on plan of care and expected duration. Pain vc1 level reassessed. Patient is alert, oriented x 3, equal unlabored respirations, skin warm/dry/pink. 04:54 Reassessment: Patient and/or family updated on plan of care and expected duration. Pain vc1 level reassessed. Patient is alert, oriented x 3, equal unlabored respirations, skin warm/dry/pink. Patient states symptoms have improved. 05:53 Reassessment: No changes from previously documented assessment. Patient and/or family bb updated on plan of care and expected duration. Pain level reassessed. Patient is alert, oriented x 3, equal unlabored respirations, skin warm/dry/pink. Patient denies pain at this time. Patient states feeling better. Patient states symptoms have improved. Vital Signs: 12/05 23:45 BP 105 / 81; Pulse 82; Resp 18; Temp 97.7(TE); Pulse Ox 95% on R/A; Weight 88.45 kg; ld1 Height 6 ft. 1 in. (185.42 cm); Pain 09/16; 12/06 02:57 BP 111 / 72 Supine; Pulse 65; vc1 02:59 BP 108 / 82 Sitting; Pulse 74; vc1 03:00 BP 92 / 69 Standing; Pulse 87; vc1 04:00 BP 108 / 78; Pulse 61; Resp 16; Pulse Ox 100% ; vc1 04:58 BP 108 / 77 Supine; Pulse 64; vc1 05:00 BP 107 / 77 Sitting; Pulse 67; vc1 05:01 BP 112 / 78 Standing; Pulse 76; vc1 12/05 23:45 Body Mass Index 25.73 (88.45 kg, 185.42 cm) ld1 ED Course: 12/05 23:39 Patient arrived in ED. bp1 23:46 Triage completed. ld1 23:46 Arm band placed on right wrist. ld1 12/06 00:23 Abebe Frederick MD is Attending Physician. kdr 02:00 Patient has correct armband on for positive identification. Bed in low position. Client vc1 placed on continuous cardiac and pulse oximetry monitoring. NIBP monitoring applied. 02:52 XRAY Chest (1 view) In Process Unspecified. EDMS 03:39 CT Head Brain wo Cont In Process Unspecified. EDMS 05:06 Cheri Oates, RN is Primary Nurse. vc1 05:52 No provider procedures requiring assistance completed. IV discontinued, intact, bb bleeding controlled, No redness/swelling at site. Pressure dressing applied. Administered Medications: 03:57 Drug: NS 0.9% 1000 ml Route: IV; Rate: 1 bolus; Site: left antecubital; vc1 Medication: 05:53 VIS not applicable for this client. bb Outcome: 05:46 Discharge ordered by . kdr 05:52 Discharged to home ambulatory. bb 05:52 Condition: improved 05:52 Discharge instructions given to patient, Instructed on discharge instructions, follow up and referral plans. 05:53 Patient left the ED. bb Signatures: Dispatcher [employer] EDMS Abebe Frederick MD MD kdr Emily Arias RN RN bb Jerica Toth Lauren, RN RN ld1 Cheri Oates, CINDY RN vc1
[2021-12-06 06:02] VITALS: TEMP 97.7
[2021-12-06 06:07] VITALS: O2SAT 100
[2021-12-06 06:11] VITALS: BP 112/78
--- NOTE | 2021-12-06 12:17 | EKG ---
Test Date: 2021-12-05 Test Time: 23:50:24 Plush Dresser: SANDRA MEASUREMENT RESULTS: Intervals: Rate: 89 NH: 140 QRSD: 98 QT: 368 QTc: 447 [place]: P: 61 NH: 140 QRS: 41 T: 66 INTERPRETIVE STATEMENTS: Normal sinus rhythm Normal ECG Compared to ECG 09/30/2021 23:42:28 Ventricular premature complex(es) no longer present Electronically Signed On 12-06-21 12:16:26 CDT by Dayton Mccord
--- NOTE | 2021-12-06 13:19 | RAD REPORT ---
EXAM DESCRIPTION: RAD - Chest Single View - 12/06/2021 2:51 am CLINICAL HISTORY: CHEST PAIN TECHNIQUE: Frontal view of the chest. COMPARISON: XR Chest dated 09/30/2021 FINDINGS: Lungs: Coarsened interstitial markings. No focal consolidation. Pleural space: Unremarkable. No pneumothorax. Heart: Unremarkable. No cardiomegaly. Mediastinum: Unremarkable. Bones/joints: Unremarkable. IMPRESSION: No acute disease. Electronically signed by: Candelario Flowers MD 12/06/2021 3:30 AM CDT Due to temporary technical issues with the PACS/Fluency reporting system, reports are being signed by the in house radiologists without. review as a courtesy to insure prompt reporting. The interpreting radiologist is fully responsible for the content of the report
--- NOTE | 2021-12-06 13:29 | RAD REPORT ---
EXAM DESCRIPTION: CT - Head Brain Wo Cont - 12/06/2021 6:03 am CLINICAL HISTORY: Dizziness, non-specific COMPARISON: CT head April 19, 2019 TECHNIQUE: Multiple helical axial tomographic images were obtained of the head without intravenous c ontrast. This exam was performed according to our departmental dose-optimization program, which inclu rafael automated exposure control, adjustment of the mA and/or kV according to patient size and/or use o f iterative reconstruction technique. FINDINGS: There is no acute intracranial hemorrhage. No mass. No midline shift. No ventriculomegaly. Ambriz-white matter differentiation is maintained. Paranasal sinuses are clear. Mastoid air cells and middle ear spaces are clear. Orbits and orbital co ntents are unremarkable. Osseous structures are unremarkable. Surrounding soft tissues are unremarkable. IMPRESSION: No acute intracranial process. Electronically signed by: Daron Jimenes MD 12/06/2021 4:14 AM CDT Due to temporary technical issues with the PACS/Fluency reporting system, reports are being signed by the in house radiologists without. review as a courtesy to insure prompt reporting. The interpreting radiologist is fully responsible for the content of the report
== END 2021-12-06 05:53 | disposition home or self-care (01) ==
LOC: ER 23:37
DX: I95.1 Orthostatic hypotension (principal); I10 Essential (primary) hypertension; I25.10 Atherosclerotic heart disease of native coronary artery without angina pectoris; J44.9 Chronic obstructive pulmonary disease, unspecified; I25.2 Old myocardial infarction; F17.210 Nicotine dependence, cigarettes, uncomplicated; Z95.818 Presence of other cardiac implants and grafts
CPT/HCPCS: 36415; 70450; 71045; 80048; 83880; 84484; 85025; 93005; J7030

== ENCOUNTER 2022-01-16 15:56 | Inpatient (IN) | payer SELFPAY ==
[2022-01-16 16:27] LABS: Absolute Lymphocytes (CBC) 2.2 K/uL (0.7-4.9); Hematocrit 41.8 % (39.6-49.0); Lymphocytes % 25.1 % (15.3-44.8); MCV 90.7 fL (80-100); MPV 9.1 fL (7.6-11.3); RBC Red Blood Cell Count 4.61 M/uL (4.33-5.43)
[2022-01-16 16:46] LABS: Potassium 3.4 mmol/L (3.5-5.1); Troponin High Sensitivity 11.4 pg/mL (<58.9)
--- NOTE | 2022-01-16 17:06 | RAD REPORT ---
EXAM DESCRIPTION: RAD - Chest Single View - 01/16/2022 4:58 pm CLINICAL HISTORY: CHEST PAIN COMPARISON: Portable 12/06/2021 TECHNIQUE: AP portable chest image was obtained 01/16/2022 4:58 pm . FINDINGS: Lungs are clear. Interstitial pattern matches comparison. Heart and vasculature are normal . No measurable pleural effusion and no pneumothorax. No acute bony abnormality seen. No acute aortic findings suspected. IMPRESSION: No acute cardiopulmonary process.
--- NOTE | 2022-01-16 19:42 | ER ---
Nurse's Notes [facility] Name: Garcia Matta Age: 56 yrs Sex: Male : 1965 Arrival Date: 01/16/2022 Time: 15:58 Bed 5 Private MD: Diagnosis: Chest pain, unspecified Presentation: 01/16 16:07 Chief complaint:. Coronavirus screen: Vaccine status: Patient reports receiving the 2nd eh3 dose of the covid vaccine. Ebola Screen: No symptoms or risks identified at this time. Initial Sepsis Screen: Does the patient meet any 2 criteria? No. Patient's initial sepsis screen is negative. Does the patient have a suspected source of infection? No. Patient's initial sepsis screen is negative. Risk Assessment: Do you want to hurt yourself or someone else? Patient reports no desire to harm self or others. 16:07 Method Of Arrival: Ambulatory [facility] 16:07 Acuity: CATARINA 2 3 20:02 Onset of symptoms was January 16, 2022. kd3 Triage Assessment: 16:07 General: Appears in no apparent distress. comfortable, Behavior is calm, cooperative, eh3 appropriate for age. Pain: Complains of pain in chest Pain does not radiate. Pain currently is 5 out of 10 on a pain scale. Quality of pain is described as throbbing, pulsating. EENT: No signs and/or symptoms were reported regarding the EENT system. Neuro: Level of Consciousness is awake, alert, obeys commands, Oriented to person, place, time, situation. Cardiovascular: Capillary refill < 3 seconds Patient's skin is warm and dry. Respiratory: Airway is patent Respiratory effort is even, labored. GI: Abdomen is flat, non-distended. : No signs and/or symptoms were reported regarding the genitourinary system. Historical: - Allergies: 16:07 No Known Allergies; eh3 - PMHx: 16:07 "aneursym on heart"; CAD; COPD; GERD; Heart Murmur; Hyperlipidemia; Hypertension; eh3 Myocardial infarction; Pneumothorax; - PSHx: 16:07 stents x 3; eh3 - Immunization history:: Adult Immunizations up to date. - Social history:: Smoking status: Patient reports the use of cigarette tobacco products, smokes one-half pack cigarettes per day, Patient/guardian denies using alcohol, street drugs. Screenin:02 Abuse screen: Denies threats or abuse. Denies injuries from another. Nutritional kd3 screening: No deficits noted. Tuberculosis screening: No symptoms or risk factors identified. Fall Risk None identified. Assessment: 16:10 Reassessment: Labs and EKG done in triage. eh3 20:03 Pain: Pain began gradually. kd3 Vital Signs: 16:07 BP 127 / 105; Pulse 119; Resp 18; Temp 98.2(TE); Pulse Ox 98% on R/A; Weight 87.09 kg; eh3 Height 6 ft. 1 in. (185.42 cm); Pain 5/10; 20:01 BP 138 / 95; Pulse 81; Resp 17; Pulse Ox 97% on R/A; kd3 16:07 Body Mass Index 25.33 (87.09 kg, 185.42 cm) eh3 ED Course: 15:58 Patient arrived in ED. rg4 16:07 Arm band placed on right wrist. eh3 16:09 Triage completed. 3 16:11 Initial lab(s) drawn, by sc, sent to lab. Inserted saline lock: 20 gauge in left jw7 antecubital area, using aseptic technique. Blood collected. 16:17 Donita Gloria FNP-C [facility]. snw 16:17 Honorio Malik MD is Attending Physician. snw 16:59 XRAY Chest (1 view) In Process Unspecified. EDMS 17:52 Aminata Munoz, CINDY is Primary Nurse. [facility] 19:41 Aziza Marsh PA is Hospitalizing Provider. snw 20:01 SARS RAPID Sent. kd3 20:02 Patient has correct armband on for positive identification. Client placed on continuous kd3 cardiac and pulse oximetry monitoring. NIBP monitoring applied. 20:02 No provider procedures requiring assistance completed. Patient maintains SpO2 kd3 saturation greater than 95% on room air. 20:39 Patient admitted, IV remains in place. 01/17 02:33 Aurelio Mann is Hospitalizing Provider. sb3 Administered Medications: No medications were administered Medication: 01/16 20:02 VIS not applicable for this client. kd3 Outcome: 19:41 Decision to Hospitalize by Provider. snw 20:39 Admitted to ER Hold. Please see [facility] for further documentation. kl 20:39 Condition: stable 20:39 Instructed on the need for admit, Demonstrated understanding of instructions. 01/17 10:08 Patient left the ED. aa5 Signatures: Dispatcher [employer] EDIvett Aldana, RN RN Donita Jacobo, PLACEMENT SECRETARY-C PLACEMENT SECRETARY-Csnw Tri Zamora, RN RN aa5 Tish Russ4 Aminata Munoz RN RN jh5 Kimber Marks, RN RN shekhar3 Mirna Marsh7 Aziza Marsh PA PA sb3 Kely Segal, RN RN eh3
--- NOTE | 2022-01-16 19:42 | EDPHYS ---
Physician Documentation [facility] Name: Garcia Matta Age: 56 yrs Sex: Male : 1965 Arrival Date: 01/16/2022 Time: 15:58 Bed 5 Private MD: ED Physician Honorio Malik HPI: 01/16 17:04 This 56 yrs old Unknown Male presents to ER via Ambulatory with complaints of Chest snw Pain, Breathing Difficulty, Palpitations. 17:04 The patient or guardian reports chest pain that is located primarily in the anterior snw chest wall, bilaterally. Onset: today. The pain does not radiate. Associated signs and symptoms: Pertinent positives: palpitations, shortness of breath. The chest pain is described as burning, burning. Duration: The patient or guardian reports multiple episodes. Severity of pain: At its worst the pain was moderate. The patient has experienced similar episodes in the past. no PCP, gets med refills from [facility]. Historical: - Allergies: 16:07 No Known Allergies; eh3 - PMHx: 16:07 "aneursym on heart"; CAD; COPD; GERD; Heart Murmur; Hyperlipidemia; Hypertension; eh3 Myocardial infarction; Pneumothorax; - PSHx: 16:07 stents x 3; eh3 - Immunization history:: Adult Immunizations up to date. - Social history:: Smoking status: Patient reports the use of cigarette tobacco products, smokes one-half pack cigarettes per day, Patient/guardian denies using alcohol, street drugs. ROS: 17:03 Constitutional: Negative for fever, chills, and weight loss, Eyes: Negative for injury, snw pain, redness, and discharge, ENT: Negative for injury, pain, and discharge, Neck: Negative for injury, pain, and swelling. 17:03 Abdomen/GI: Negative for abdominal pain, nausea, vomiting, diarrhea, and constipation, Back: Negative for injury and pain, : Negative for injury, bleeding, discharge, and swelling, MS/Extremity: Negative for injury and deformity, Skin: Negative for injury, rash, and discoloration, Neuro: Negative for headache, weakness, numbness, tingling, and seizure, Psych: Negative for depression, anxiety, suicide ideation, homicidal ideation, and hallucinations. 17:03 Cardiovascular: Positive for palpitations. 17:03 Respiratory: Positive for shortness of breath, on exertion. Exam: 17:02 Constitutional: This is a well developed, well nourished patient who is awake, alert, snw and in no acute distress. Head/Face: Normocephalic, atraumatic. Eyes: Pupils equal round and reactive to light, extra-ocular motions intact. Lids and lashes normal. Conjunctiva and sclera are non-icteric and not injected. Cornea within normal limits. Periorbital areas with no swelling, redness, or edema. ENT: Nares patent. No nasal discharge, no septal abnormalities noted. Tympanic membranes are normal and external auditory canals are clear. Oropharynx with no redness, swelling, or masses, exudates, or evidence of obstruction, uvula midline. Mucous membranes moist. Neck: Trachea midline, no thyromegaly or masses palpated, and no cervical lymphadenopathy. Supple, full range of motion without nuchal rigidity, or vertebral point tenderness. No Meningismus. Chest/axilla: Normal chest wall appearance and motion. Nontender with no deformity. No lesions are appreciated. 17:02 Abdomen/GI: Soft, non-tender, with normal bowel sounds. No distension or tympany. No guarding or rebound. No evidence of tenderness throughout. Back: No spinal tenderness. No costovertebral tenderness. Full range of motion. MS/ Extremity: Pulses equal, no cyanosis. Neurovascular intact. Full, normal range of motion. Neuro: Awake and alert, GCS 15, oriented to person, place, time, and situation. Cranial nerves II-XII grossly intact. Motor strength 5/5 in all extremities. Sensory grossly intact. Cerebellar exam normal. Normal gait. Psych: Awake, alert, with orientation to person, place and time. Behavior, mood, and affect are within normal limits. 17:02 Cardiovascular: Rate: tachycardic, Rhythm: regular, Pulses: no pulse deficits are appreciated, Heart sounds: normal. 17:02 Respiratory: mild respiratory distress is noted, Respirations: shallow respirations, tachypnea, Breath sounds: bronchial sounds, that are moderate, are heard diffusely. 17:02 Skin: Appearance: normal except for affected area, scattered ecchymosis. 19:09 ECG was reviewed by the Attending Physician. [facility] Vital Signs: 16:07 BP 127 / 105; Pulse 119; Resp 18; Temp 98.2(TE); Pulse Ox 98% on R/A; Weight 87.09 kg; 3 Height 6 ft. 1 in. (185.42 cm); Pain 5/10; 20:01 BP 138 / 95; Pulse 81; Resp 17; Pulse Ox 97% on R/A; kd3 16:07 Body Mass Index 25.33 (87.09 kg, 185.42 cm) 3 MDM: 16:22 Patient medically screened. snw 19:07 HEART Score: History: Moderately Suspicious (1), ECG: Non specific repolarization snw disturbance / LBTB / PM (1), Age: > 45 and < 65 years (1), Risk Factors: > or = 3 Risk factors for atherosclerotic disease (2), [Hypercholesterolemia] [Hypertension] [Active Smoker] Troponin:. The patient was given aspirin in the Emergency Department. Data reviewed: vital signs, nurses notes, lab test result(s). Data interpreted:. Counseling: I had a detailed discussion with the patient and/or guardian regarding: the historical points, exam findings, and any diagnostic results supporting the discharge/admit diagnosis, the presence of at least one elevated blood pressure reading (>120/80) during this emergency department visit, radiology results. 01/16 16:11 Order name: Basic Metabolic Panel; Complete Time: 16:50 [facility] 01/16 16:11 Order name: CBC with Diff; Complete Time: 16:50 [facility] 01/16 16:11 Order name: Troponin HS; Complete Time: 16:50 [facility] 01/16 19:41 Order name: SARS RAPID; Complete Time: 21:18 snw 01/17 02:02 Order name: Troponin High Sensitivity; Complete Time: 02:32 EDMS 01/17 04:15 Order name: Troponin High Sensitivity; Complete Time: 05:42 EDMS 01/16 16:11 Order name: XRAY Chest (1 view); Complete Time: 17:24 [facility] 01/16 16:11 Order name: EKG; Complete Time: 16:13 [facility] 01/16 16:11 Order name: Cardiac monitoring; Complete Time: 17:52 [facility] 01/16 16:11 Order name: EKG - Nurse/Tech; Complete Time: 16:11 [facility] 01/16 16:11 Order name: IV Saline Lock; Complete Time: 16:11 [facility] 01/17 04:15 Order name: Lipid Profile; Complete Time: 05:42 [facility] 01/17 08:49 Order name: Potassium; Complete Time: 15:38 [facility] 01/17 08:49 Order name: Magnesium; Complete Time: 15:38 [facility] 01/16 16:11 Order name: Labs collected and sent; Complete Time: 16:11 [facility] 01/16 16:11 Order name: O2 Per Protocol; Complete Time: 17:52 [facility] 01/16 16:11 Order name: O2 Sat Monitoring; Complete Time: 17:52 [facility] 01/16 19:10 Order name: Recheck Vital Signs; Complete Time: 20:01 snw EC:09 Rate is 122 beats/min. Rhythm is regular. QRS [place] is Normal. NH interval is normal. snw QRS interval is normal. QT interval is normal. No Q waves. T waves are Peaked. Clinical impression: NSR w/ Non-specific ST/T Changes. Administered Medications: No medications were administered Disposition Summary: 01/16/22 19:41 Hospitalization Ordered Hospitalization Status: Observation snw Condition: Stable snw Problem: an acute exacerbation snw Symptoms: have improved snw Bed/Room Type: Standard snw Location: [facility] ER HOLD(01/16/22 20:12) eb1 Room Assignment: ERHOLD-(01/16/22 20:12) eb1 Provider: Aurelio Mann(01/17/22 02:34) sb3 Diagnosis - Chest pain, unspecified snw Forms: - Medication Reconciliation Form snw - SBAR form snw Signatures: Dispatcher [employer] EDCA Donita Gloria FNP-C CV TECH-Csnw Meg Lopes RN RN eb1 Aziza Marsh, PA PA sb3 Kely Segal RN RN eh3 Corrections: (The following items were deleted from the chart) 20:12 19:41 Telemetry/MedSurg (observation) snw [facility] 20:12 19:41 snw [facility] 01/17 02:34 08 19:41 Aziza Marsh snw sb3
[2022-01-16] MEDS ORDERED: ONDANSETRON 4 MG/2 ML VIAL IV PRN (20:22)
[2022-01-16] MEDS ORDERED: ALBUTEROL 2.5 MG/3 ML NEB SOL NEB PRN (20:22)
[2022-01-16] MEDS ORDERED: ACETAMINOPHEN 500 MG TAB PO PRN (20:22)
--- NOTE | 2022-01-16 20:30 | P.HP ---
Certification for Inpatient Patient admitted to: Observation With expected LOS: <2 Midnights Patient will require the following post-hospital care: None Practitioner: I am a practitioner with admitting privileges, knowledge of patient current condition, hospital course, and medical plan of care. Services: Services provided to patient in accordance with Admission requirements found in Title 42 Section 412.3 of the Code of Federal Regulations Patient History Date of Service: 01/16/22 Reason for admission: Chest Pain History of Present Illness: Patient is a 56 y/o M with CAD, COPD, GERD, and HTN who presented to the ED with complaints of chest pain, palpitations, and shortness of breath. Patient reports that he was just sitting at home today when he checked his pulse ox and noticed he was saturating 88% on RA. He took a breathing treatment and noticed his HR was above 100 and got concerned. He was also experiencing chest pain that he reports feels like a burning sensation. He states the pain does not radiate anywhere. He did not have any episodes of diaphoresis or N/V. VSS upon arrival to ED. EKG without abnormalities. Labs within normal limits. Troponin negative. Patient states that he has had stress tests, echo, angiogram at [facility]. He does not have a PCP, but gets his medications refilled at [facility]. ED provider wishes to admit patient for observation for ACS rule out. Allergies No Known Allergies Allergy (Verified 04/19/19 16:57) Home medications list reviewed: Yes Home Medications: Aspirin Chewable [Aspirin Chewable*] 1 tab PO BEDTIME 05/24/19 Atorvastatin Calcium [Lipitor] 1 tab PO BEDTIME 05/24/19 Clopidogrel Bisulfate [Plavix*] 1 tab PO BEDTIME 05/24/19 carvediloL [Coreg*] 12.5 mg PO BID 05/24/19 lisinopriL [Lisinopril] 1 tab PO BEDTIME 05/24/19 Budesonide/Formoterol Fumarate [Symbicort 160-4.5 Mcg Inhaler] 2 puff IH BID #1 hfa.aer.ad 05/26/19 Albuterol Sulfate [Proair Hfa] 1 puff IH PRN PRN 07/26/21 Levothyroxine Sodium [Unithroid] 50 mcg PO BEDTIME 07/26/21 Metoprolol Succinate [Toprol Xl] 25 mg PO BID 07/26/21 Isosorbide Mononitrate [Isosorbide Mononitrate ER] 30 mg PO PRN 01/16/22 - Past Medical/Surgical History Diabetic: No -: Coronary artery disease -: Hypertension -: Tobacco abuse -: COPD -: [place] -: Pneumothorax -: Heart Stent x 3 (2017) Psychosocial/ Personal History: Patient lives at home. - Family History Mother -: Heart disease, Hypertension Father -: Kidney disease - Social History Smoking Status: Current every day smoker Alcohol use: No CD- Drugs: No Caffeine use: Yes Place of Residence: Home Review of Systems Respiratory: Shortness of Breath Cardiovascular: Chest Pain, Palpitations Physical Examination - Physical Exam General: Alert, In no apparent distress HEENT: Atraumatic, PERRLA, EOMI, Sclerae nonicteric Neck: Supple, 2+ carotid pulse no bruit, No LAD, Without JVD or thyroid abnormality Respiratory: Clear to auscultation bilaterally, Normal air movement Cardiovascular: Regular rate/rhythm, Normal S1 S2 Gastrointestinal: Normal bowel sounds, No tenderness Musculoskeletal: No tenderness Integumentary: No rashes Neurological: Normal speech, Normal strength at 5/5 x4 extr, Normal tone, Normal affect - Studies Laboratory Data (last 24 hrs) 01/16/22 16:10: WBC 8.7, Hgb 14.3, Hct 41.8, Plt Count 215 01/16/22 16:10: Sodium 140, Potassium 3.4 L, BUN 13, Creatinine 0.97, Glucose 159 H Assessment and Plan - Problems (Diagnosis) (1) Chest pain, rule out acute myocardial infarction Current Visit: Yes Status: Acute (2) CAD (coronary artery disease) Current Visit: Yes Status: Chronic Qualifiers: Coronary Disease-Associated Artery/Lesion type: [place] artery [place] vs. transplanted heart: [place] heart Associated angina: with unstable angina Qualified Code(s): I25.110 - Atherosclerotic heart disease of [place] coronary artery with unstable angina pectoris (3) COPD (chronic obstructive pulmonary disease) Current Visit: Yes Status: Chronic Qualifiers: COPD type: unspecified COPD Qualified Code(s): J44.9 - Chronic obstructive pulmonary disease, unspecified (4) HTN (hypertension) Current Visit: Yes Status: Chronic Qualifiers: Hypertension type: primary hypertension Qualified Code(s): I10 - Essential (primary) hypertension (5) Tobacco abuse Current Visit: Yes Status: Chronic (6) Hypokalemia Current Visit: Yes Status: Acute - Plan -Initial troponin negative. Repeat q6h x 2 -Aspirin, plavix, and atorvastatin daily -Echo ordered -Lipid panel and TSH ordered for morning -Cardiology consulted. Monitor on telemetry -Breathing treatments as needed -Monitor and replete electrolytes per protocol -Reconcile and continue home medications -Lovenox for VTE ppx -Full code Discharge Plan: Home Plan to discharge in: 24 Hours - Advance Directives Does patient have a Living Will: No Does patient have a Durable POA for Healthcare: No - Code Status/Comfort Care Code Status Assessed: Yes (Full) Critical Care: No Time Spent Managing Pts Care (In Minutes): 50
[2022-01-16 20:52] VITALS: BMI 25.2
[2022-01-16] MEDS ORDERED: ATORVASTATIN 40 MG TAB PO SCH (21:00)
[2022-01-16 21:15] LABS: SARS-CoV-2 Antigen Rapid Res Negative (Negative)
[2022-01-16] MEDS ORDERED: ATORVASTATIN 20 MG TAB ONE (22:43)
[2022-01-17 04:15] LABS: Troponin High Sensitivity 12.9 pg/mL (<58.9)
[2022-01-17 08:49] LABS: Magnesium 2.1 mg/dL (1.8-2.4); Potassium 3.6 mmol/L (3.5-5.1)
--- NOTE | 2022-01-17 08:50 | P.DS ---
Admission Date: 01/16/22 Discharge Date: 01/17/22 Disposition: ROUTINE DISCHARGE Discharge Condition: FAIR Reason for Admission: Chest Pain - Problems (1) Chest pain, rule out acute myocardial infarction Status: Acute (2) CAD (coronary artery disease) Status: Chronic Qualifiers: Coronary Disease-Associated Artery/Lesion type: [place] artery [place] vs. transplanted heart: [place] heart Associated angina: with unstable angina Qualified Code(s): I25.110 - Atherosclerotic heart disease of [place] coronary artery with unstable angina pectoris (3) HTN (hypertension) Status: Chronic Qualifiers: Hypertension type: primary hypertension Qualified Code(s): I10 - Essential (primary) hypertension Brief History of Present Illness: Patient is a 56 y/o M with CAD, COPD, GERD, and HTN who presented to the ED with complaints of chest pain, palpitations, and shortness of breath. Patient reports that he was just sitting at home today when he checked his pulse ox and noticed he was saturating 88% on RA. He took a breathing treatment and noticed his HR was above 100 and got concerned. He was also experiencing chest pain that he reports feels like a burning sensation. He states the pain does not radiate anywhere. He did not have any episodes of diaphoresis or N/V. VSS upon arrival to ED. EKG without abnormalities. Labs within normal limits. Troponin negative. Patient states that he had stress tests, echo, angiogram at [facility] last year. He does not have a PCP, but gets his medications refilled at [facility]. Patient placed under observation for ACS rule. Hospital Course: Patient placed in observation on the medical floor. Troponin trended negative. He was asymptomatic during the hospital stay. Blood pressure was stable. Patient was seen and evaluated by cardiology Dr. Chacon who recommended discontinuing his Imdur to avoid hypotension. No further recommendation or cardiac intervention per Dr. Chacon. Patient deemed stable for discharge. Echocardiogram was done and the result is pending. Vital Signs/Physical Exam: Temp Pulse Resp BP Pulse Ox 98.3 F 84 18 125/96 H 98 01/17/22 08:00 01/17/22 08:00 01/17/22 08:00 01/17/22 08:00 01/17/22 08:00 General: Alert, In no apparent distress, Oriented x3 HEENT: Mucous membr. moist/pink Neck: JVD not distended Respiratory: Clear to auscultation bilaterally, Normal air movement Cardiovascular: No edema, Regular rate/rhythm, Normal S1 S2 Gastrointestinal: Normal bowel sounds, Soft and benign, Non-distended, No tenderness Musculoskeletal: No swelling, No tenderness Integumentary: No rashes, No erythema, No cyanosis Neurological: Normal strength at 5/5 x4 extr Laboratory Data at Discharge: WBC 8.7 K/uL (4.3-10.9) 01/16/22 16:10 Hgb 14.3 g/dL (13.6-17.9) 01/16/22 16:10 Hct 41.8 % (39.6-49.0) 01/16/22 16:10 Plt Count 215 K/uL (152-406) 01/16/22 16:10 Sodium 140 mmol/L (136-145) 01/16/22 16:10 Potassium 3.6 mmol/L (3.5-5.1) 01/17/22 03:02 BUN 13 mg/dL (7-18) 01/16/22 16:10 Creatinine 0.97 mg/dL (0.55-1.3) 01/16/22 16:10 Glucose 159 mg/dL (74-106) H 01/16/22 16:10 Magnesium 2.1 mg/dL (1.8-2.4) 01/17/22 03:02 Triglycerides 193 mg/dL (<150) H 01/17/22 03:02 Cholesterol 160 mg/dL (<200) 01/17/22 03:02 HDL Cholesterol 27 mg/dL (40-60) L 01/17/22 03:02 Cholesterol/HDL Ratio 5.93 01/17/22 03:02 Home Medications: Aspirin Chewable [Aspirin Chewable*] 1 tab PO BEDTIME 05/24/19 Atorvastatin Calcium [Lipitor] 1 tab PO BEDTIME 05/24/19 Clopidogrel Bisulfate [Plavix*] 1 tab PO BEDTIME 05/24/19 carvediloL [Coreg*] 12.5 mg PO BID 05/24/19 lisinopriL [Lisinopril] 1 tab PO BEDTIME 05/24/19 Budesonide/Formoterol Fumarate [Symbicort 160-4.5 Mcg Inhaler] 2 puff IH BID #1 hfa.aer.ad 05/26/19 Albuterol Sulfate [Proair Hfa] 1 puff IH PRN PRN 07/26/21 Levothyroxine Sodium [Unithroid] 50 mcg PO BEDTIME 07/26/21 Metoprolol Succinate [Toprol Xl] 25 mg PO BID 07/26/21 Diet: AHA Activity: Fall precautions Followup: NONE,NONE [Primary Care Provider] - Time spent managing pt's care (in minutes): 34
[2022-01-17] MEDS ORDERED: ASPIRIN 81 MG CHEWABLE TABLET PO SCH (09:00)
[2022-01-17] MEDS ORDERED: ENOXAPARIN 40 MG/0.4 ML SQ SCH (09:00)
[2022-01-17] MEDS ORDERED: POTASSIUM 25 MEQ EFFERV TAB PO ONE (09:16)
[2022-01-17] MEDS ORDERED: ASPIRIN 81 MG CHEWABLE TABLET ONE (09:34)
[2022-01-17] MEDS ORDERED: POTASSIUM 25 MEQ EFFERV TAB ONE (09:34)
[2022-01-17] MEDS ORDERED: ENOXAPARIN 40 MG/0.4 ML SQ ONE (09:35)
[2022-01-17 10:30] VITALS: TEMP 98.2
[2022-01-17 10:36] VITALS: BP 138/95; O2SAT 97
--- NOTE | 2022-01-17 13:20 | CON ---
Date of Consultation: 01/17/2022 Reason For Consultation: Palpitation and dizziness. History Of Present Illness: Mr. Matta is 66. Has a history of CAD status post stent, COPD, hyperte nsion, and dyslipidemia. Came in with palpitation, dizziness. No chest pain reported. Denies any n ausea, vomiting, diaphoresis, PND, orthopnea, pedal edema, or syncope. Denied any fever or chills. EKG is normal. Chest x-ray is normal. Laboratory evaluation normal. He is feeling back to normal n ow. Telemetry did not show any arrhythmias except for occasional DVT. Past Medical History: As stated above. Allergies: NONE. Review of Systems: Negative. Social History: Negative. Family History: Negative. Medications: At home include aspirin, Toprol, Imdur, lisinopril, Synthroid, Lipitor, Plavix, and inh aler. Physical Examination: Vital Signs: Stable, afebrile. HEENT: Negative. Neck: Supple with no bruit. Chest: Clear. Cardiac: Normal. Abdomen: Benign. Extremities: Revealed no clubbing, cyanosis, or edema. Diagnostic Data: Normal. Impression And Plan: Palpitation, dizziness most likely secondary to orthostatic hypotension. I wou ld have him continue the metoprolol, lisinopril, Lipitor, Plavix, aspirin, inhaler, and Synthroid. I would like take him off isosorbide as he has been taking that for years and I am not sure if that is helping him. The patient has no chest pain. He has stable coronary artery disease, chronic obstruc tive pulmonary disease, hypertension, and dyslipidemia. He has an echocardiogram pending. After steven t if his echo is normal, I think he can go home and we will see him in the office as an outpatient. FREIDA/MARI Voice ID: [id number] Report ID: [id number]
--- NOTE | 2022-01-17 14:33 | EKG ---
Test Date: 2022-01-16 Test Time: 16:08:10 Imaging Engineer: SANDRA MEASUREMENT RESULTS: Intervals: Rate: 122 NH: 148 QRSD: 78 QT: 318 QTc: 453 [place]: P: 88 NH: 148 QRS: 38 T: 94 INTERPRETIVE STATEMENTS: Sinus tachycardia with occasional premature ventricular complexes Nonspecific ST and T wave abnormality Abnormal ECG Compared to ECG 12/05/2021 23:50:24 Ventricular premature complex(es) now present ST (T wave) deviation now present Sinus rhythm no longer present Electronically Signed On 01-17-22 14:31:36 CDT by Dayton Mccord
--- NOTE | 2022-01-18 06:54 | ECHO ---
HEIGHT: 6 ft 1 in WEIGHT: 192 lb 0 oz DATE OF STUDY: 01/17/[address]: Aziza Marsh 2-DIMENSIONAL: YES M.MODE: YES DOPPLER: YES COLOR FLOW: YES TDS: PORTABLE: DEFINITY: BUBBLE STUDY: DIAGNOSIS: CHEST PAIN CARDIAC HISTORY: CATHERIZATION: YES SURGERY: PROSTHETIC VALVE: PACEMAKER: MEASUREMENTS (cm) DIASTOLIC (NORMALS) SYSTOLIC (NORMALS) IVSd 1.2 (0.6-1.2) LA Diam 3.1 (1.9-4.0) LVEF 55-60% LVIDd 3.8 (3.5-5.7) LVIDs 2.9 (2.0-3.5) %FS 25% LVPWd 1.2 (0.6-1.2) Ao Diam 3.3 (2.0-3.7) 2 DIMENSIONAL ASSESSMENT: RIGHT ATRIUM: NORMAL LEFT ATRIUM: NORMAL RIGHT VENTRICLE: NORMAL LEFT VENTRICLE: NORMAL TRICUSPID VALVE: MILD TRICUSPID REGURGITATION MITRAL VALVE: MILD MITRAL REGURGITATION PULMONIC VALVE: NORMAL AORTIC VALVE: MILD AORTIC STENOSIS PERICARDIAL EFFUSION: NONE AORTIC ROOT: NORMAL LEFT VENTRICULAR WALL MOTION: NORMAL DOPPLER/COLOR FLOW: SEE BELOW COMMENTS: NORMAL LEFT VENTRICULAR EJECTION FRACTION 55-60%. NORMAL WALL MOTION. MILD AORTIC STENOSIS. MILD MITRAL REGURGITATION, MILD TRICUSPID REGURGITATION. TECHNOLOGIST: LORENZO OTERO
== END 2022-01-17 10:00 | disposition home or self-care (01) | DRG 303 ==
LOC: ER 15:56 → ERHOLD 19:58 → OBSVTOIN 20:29
PROVIDERS: ADMIT Internal Medicine; ATTEND Internal Medicine
DX: I25.110 Atherosclerotic heart disease of native coronary artery with unstable angina pectoris (principal); E78.5 Hyperlipidemia, unspecified; E87.6 Hypokalemia; J44.9 Chronic obstructive pulmonary disease, unspecified; K21.9 Gastro-esophageal reflux disease without esophagitis; I10 Essential (primary) hypertension; R00.2 Palpitations; I25.2 Old myocardial infarction; F17.210 Nicotine dependence, cigarettes, uncomplicated; Z95.5 Presence of coronary angioplasty implant and graft; Z79.82 Long term (current) use of aspirin; Z20.822 Contact with and (suspected) exposure to COVID-19
CPT/HCPCS: 36415; 71045; 80048; 80061; 83735; 84132; 84484; 85025; 87811; 93005; 93306; 99285; J1650

== ENCOUNTER 2023-10-16 18:15 | Inpatient (IN) | payer OTHER, SELFPAY ==
[2023-10-16 18:59] LABS: Absolute Basophils 0.1 K/uL (0-0.5); Absolute Eosinophils 0.3 K/uL (0-0.5); Absolute Monocytes 1.2 K/uL (0.1-1.3); Absolute Neutrophil 5.3 K/uL (1.8-8.0); Basophils % 0.7 % (0-1.3); Eosinophils % 3.4 % (0-4.4); Hematocrit 40.3 % (39.6-49.0); Hemoglobin 13.5 g/dL (13.6-17.9); Lymphocytes % 22.3 % (15.3-44.8); MCH 30.5 pg (27.0-35.0); MCHC 33.6 g/dL (32.0-36.0); MCV 90.9 fL (80-100); MPV 9.1 fL (7.6-11.3); Monocytes % 13.6 % (3.3-12.3); Platelets 180 thou/uL (152-406); RBC Red Blood Cell Count 4.43 M/uL (4.33-5.43); Red Cell Distribution Width 13.4 % (12.1-15.2)
[2023-10-16 19:11] LABS: ALT/SGPT 22 U/L (16-61); AST/SGOT 11 U/L (15-37); Albumin 3.5 g/dL (3.4-5.0); Alkaline Phosphatase 70 U/L (45-117); Anion Gap 8.8 mEq/L (5.0-15.0); BUN Blood Urea Nitrogen 17 mg/dL (7-18); Bicarbonate 24 mEq/L (21-32); Bilirubin Total 0.4 mg/dL (0.2-1.0); Globulin 3.4 g/dL (2.3-3.5); Glomerular Filtration Rate 97 ml/min (=/>90); Glucose Level 149 mg/dL (74-106); Potassium 3.8 mEq/L (3.5-5.1); Protein, Total 6.9 g/dL (6.4-8.2); Sodium Level 137 mEq/L (136-145); Troponin High Sensitivity 12.4 pg/mL (<58.9)
[2023-10-16 19:14] LABS: Bilirubin Direct < 0.2 mg/dL (0-0.2); Bilirubin Indirect, Calculated 0.2 mg/dL (0.2-0.8)
--- NOTE | 2023-10-16 19:21 | ER ---
Nurse's Notes [facility] Name: Garcia Matta Age: 58 yrs Sex: Male : 1965 Arrival Date: 10/16/2023 Time: 18:15 Bed 13 Private MD: Diagnosis: Chest pain, unspecified Presentation: 10/15 19:05 Chief complaint: Patient states: chest pain that has been ongoing for a week. cp4 Coronavirus screen: Client denies travel out of the [place] in the last 14 days. At this time, the client does not indicate any symptoms associated with coronavirus-19. Ebola Screen: Patient negative for fever greater than or equal to 101.5 degrees Fahrenheit, and additional compatible Ebola Virus Disease symptoms Patient denies exposure to infectious person. Patient denies travel to an Ebola-affected area in the 21 days before illness onset. No symptoms or risks identified at this time. Initial Sepsis Screen: Does the patient meet any 2 criteria? No. Patient's initial sepsis screen is negative. Does the patient have a suspected source of infection? No. Patient's initial sepsis screen is negative. Risk Assessment: Do you want to hurt yourself or someone else? Patient reports no desire to harm self or others. Onset of symptoms was October 09, 2023. 19:05 Method Of Arrival: EMS: [facility] 4 19:05 Acuity: CATARINA 2 cp4 Triage Assessment: 19:08 General: Appears in no apparent distress. uncomfortable, Behavior is calm, cooperative, cp4 appropriate for age. Pain: Complains of pain in chest Pain currently is 4 out of 10 on a pain scale. Historical: - Allergies: 19:06 No Known Allergies; cp4 - PMHx: 19:06 CAD; COPD; GERD; Heart Murmur; Hyperlipidemia; Hypertension; Myocardial infarction; cp4 Pneumothorax; - PSHx: 19:06 stents x 3; cp4 - Immunization history:: Adult Immunizations up to date. - Infectious Disease History:: Denies. CDIFF, C. Auris, ESBL, MRSA (w/in 1 year), VRE (w/in 1 year), TB, . - Social history:: Smoking status: Patient denies any tobacco usage or history of. Screenin:10 [facility] ED Fall Risk Assessment (Adult) History of falling in the last 3 months, cp4 including since admission No falls in past 3 months (0 pts). [facility] ED Fall Risk Assessment (Adult) History of falling in the last 3 months, including since admission Confusion or Disorientation No (0 pts) Intoxicated or Sedated No (0 pts) Impaired Gait No (0 pts) Mobility Assist Device Used No (0 pt) Altered Elimination No (0 pt) Score/Fall Risk Level 0 - 2 = Low Risk Oriented to surroundings, Maintained a safe environment, Assessed \T\ reinforced patient's understanding of fall precautions, Hourly rounding (assess needs \T\ fall precautionary measures) done. Abuse screen: Denies threats or abuse. Nutritional screening: No deficits noted. Tuberculosis screening: No symptoms or risk factors identified. Assessment: 19:10 Reassessment: No changes from previously documented assessment. cp4 21:15 Reassessment: Patient appears in no apparent distress at this time. No changes from cm10 previously documented assessment. Patient is alert, oriented x 3, equal unlabored respirations, skin warm/dry/pink. Assumed care of patient at this time. Pt remains on cardiac monitoring. Pt A\T\Ox4, respirations even and unlabored. Pt has life vest on. Updated pt on plan of care. Call light in reach. General: Appears in no apparent distress. comfortable, Behavior is calm, cooperative. Pain: Complains of pain in chest. Neuro: No deficits noted. Level of Consciousness is awake, alert, obeys commands, Oriented to person, place, time, situation, Appropriate for age. Cardiovascular: No deficits noted. Reports chest pain, Capillary refill < 3 seconds. Respiratory: No deficits noted. Airway is patent Respiratory effort is even, unlabored, Respiratory pattern is regular, symmetrical. Derm: No deficits noted. Skin is healthy with good turgor. Musculoskeletal: No deficits noted. Range of motion: intact in all extremities. 23:09 Reassessment: report faxed to 2nd floor, confirmed by tm6 Vital Signs: 19:00 BP 101 / 71; Pulse 94; Resp 18; Pulse Ox 97% ; cp4 19:05 BP 103 / 72; Pulse 97; Resp 18; Temp 98; Pulse Ox 96% ; cp4 20:00 BP 111 / 70; Pulse 85; Resp 18; Pulse Ox 98% ; cp4 21:00 BP 115 / 47; Pulse 87; Resp 18; Pulse Ox 99% ; cp4 23:27 BP 112 / 79; Pulse 83; Resp 18; Pulse Ox 97% on R/A; cm10 ED Course: 18:19 Patient arrived in ED. em1 18:22 Brady Ann DO is Attending Physician. ms3 18:25 Sarah Mcdonald is Primary Nurse. cp4 18:45 Basic Metabolic Panel Sent. cp4 18:45 CBC with Diff Sent. cp4 18:45 LFT's Sent. cp4 18:45 Magnesium Sent. cp4 18:45 Troponin HS Sent. cp4 19:06 Triage completed. cp4 19:08 Arm band placed on right wrist. Patient placed in an exam room, on a stretcher. cp4 19:10 Maintain EMS IV. Dressing intact. Good blood return noted. Site clean \T\ dry. Gauge \T\ cp 4 site: 20 LAC. 19:10 Bed in low position. Call light in reach. Side rails up X2. cp4 19:20 Prince Verdugo MD is Hospitalizing Provider. ms3 19:21 XRAY Chest (1 view) In Process Unspecified. EDMS 21:15 Primary Nurse role handed off by Sarah Mcdonald cm10 21:15 Nikkie Gold, CINDY is Primary Nurse. cm10 23:27 No provider procedures requiring assistance completed. Patient admitted, IV remains in cm10 place. 23:27 Provided Education on: Need for admit. cm10 Administered Medications: 18:37 Not Given (Patient already took ): aspirinchewable tablet 324 mg PO once; 81 mg tablets cp4 x 4 Medication: 19:10 VIS not applicable for this client. cp4 Outcome: 19:21 Decision to Hospitalize by Provider. ms3 23:27 Admitted to Med/surg accompanied by tech, via wheelchair, room 203, cm10 23:27 Condition: good 23:27 Instructed on the need for admit, 23:48 Patient left the ED. cm10 Signatures: Dispatcher [employer] EDMS Derick Gold em1 Brady Ann DO DO ms3 Nikkie Gold, RN RN cm10 Sarah Mcdonald cp4 Terrance Dumas RN RN tm6
--- NOTE | 2023-10-16 19:21 | EDPHYS ---
Physician Documentation [facility] Name: Garcia Matta Age: 58 yrs Sex: Male : 1965 Arrival Date: 10/16/2023 Time: 18:15 Bed 13 Private MD: ED Physician Brady Ann HPI: 10/15 18:32 This 58 yrs old Male presents to ER via Unassigned with complaints of chest pain. ms3 18:32 58-year-old male with past medical history of hypertension, coronary artery disease, ms3 myocardial infarction, AAA, COPD, thyroid disease, diabetes presents to the emergency department for chest pain has been intermittent for 1 week. Patient states pain has become continuous for the last 2 days. Patient states he took a nitro at 5:15 PM without any significant changes. He states his pain is a 4/10 and denies alleviating or inciting factors.. Historical: - Allergies: 19:06 No Known Allergies; cp4 - PMHx: 19:06 CAD; COPD; GERD; Heart Murmur; Hyperlipidemia; Hypertension; Myocardial infarction; cp4 Pneumothorax; - PSHx: 19:06 stents x 3; cp4 - Immunization history:: Adult Immunizations up to date. - Infectious Disease History:: Denies. CDIFF, C. Auris, ESBL, MRSA (w/in 1 year), VRE (w/in 1 year), TB, . - Social history:: Smoking status: Patient denies any tobacco usage or history of. ROS: 18:32 Constitutional: Negative for fever, and chills. Neck: Negative for injury, pain, and ms3 swelling, 18:32 Respiratory: Negative for shortness of breath, cough, wheezing, and pleuritic chest pain, Abdomen/GI: Negative for abdominal pain, nausea, vomiting, diarrhea, and constipation, MS/Extremity: Negative for injury and deformity, 18:32 Cardiovascular: Positive for chest pain, Exam: 18:32 Constitutional: This is a well developed, well nourished patient who is awake, alert, ms3 and in no acute distress. Head/Face: Normocephalic, atraumatic. Chest/axilla: Normal chest wall appearance and motion. Nontender with no deformity. Cardiovascular: Regular rate and rhythm with a normal S1 and S2. No gallops, murmurs, or rubs. Normal PMI, no JVD. No pulse deficits. Respiratory: Lungs have equal breath sounds bilaterally, clear to auscultation and percussion. No rales, rhonchi or wheezes noted. No increased work of breathing, no retractions or nasal flaring. Abdomen/GI: Soft, non-tender, with normal bowel sounds. No distension or tympany. No guarding or rebound. No evidence of tenderness throughout. Skin: Warm, dry with normal turgor. Normal color with no rashes, no lesions, and no evidence of cellulitis. MS/ Extremity: Pulses equal, no cyanosis. Neurovascular intact. Full, normal range of motion. 18:39 ECG was reviewed by the Attending Physician. ms3 Vital Signs: 19:00 BP 101 / 71; Pulse 94; Resp 18; Pulse Ox 97% ; cp4 19:05 BP 103 / 72; Pulse 97; Resp 18; Temp 98; Pulse Ox 96% ; cp4 20:00 BP 111 / 70; Pulse 85; Resp 18; Pulse Ox 98% ; cp4 21:00 BP 115 / 47; Pulse 87; Resp 18; Pulse Ox 99% ; cp4 23:27 BP 112 / 79; Pulse 83; Resp 18; Pulse Ox 97% on R/A; cm10 MDM: 18:22 Patient medically screened. ms3 18:32 Differential diagnosis: abnormal EKG, acute myocardial infarction, coronary artery ms3 disease. 19:48 HEART Score: History: Moderately Suspicious (1), ECG: Normal (0), Age: > 45 and < 65 ms3 years (1), Risk Factors: > or = 3 Risk factors for atherosclerotic disease (2), [Hypercholesterolemia] [Hypertension] Troponin: < or = 1 x Normal Limit (0), Total Score = 4. The patient was given aspirin in the Emergency Department. Data reviewed: vital signs, nurses notes, lab test result(s), EKG, radiologic studies, and as a result, I will admit patient. Consideration of Admission/Observation Patient was admitted/placed on observation. Management of patient was discussed with the following: Hospitalist: Dr Verdugo. Drywall Finisher Foreman: Dr Almanzar- patient to be npo after midnight. I considered the following discharge prescriptions or medication management in the emergency department Medications were administered in the Emergency Department. See MAR. Independent interpretation of the following test(s) in the Emergency Department EKG: See my EKG interpretation above. Historians other than the Patient: EMS: [facility]. Care significantly affected by the following chronic conditions: Hypertension, HLD, CAD, COPD. Counseling: I had a detailed discussion with the patient and/or guardian regarding the historical points, exam findings, and any diagnostic results supporting the discharge/admit diagnosis, lab results, radiology results, the need for further work-up and treatment in the hospital. ED course: Discussed necessity for observation with patient. He understands and agrees with plan. Patient remains in stable condition in the emergency department. 10/15 18:22 Order name: Basic Metabolic Panel; Complete Time: 19:15 ms3 10/15 18:22 Order name: CBC with Diff; Complete Time: 19:15 ms3 10/15 18:22 Order name: LFT's; Complete Time: 19:15 ms3 10/15 18:22 Order name: Magnesium; Complete Time: 19:15 ms3 10/15 18:22 Order name: Troponin HS; Complete Time: 19:15 ms3 10/15 21:22 Order name: Hemoglobin A1c EDMS 10/15 22:50 Order name: Troponin High Sensitivity EDMS 10/15 18:22 Order name: XRAY Chest (1 view) ms3 10/15 18:22 Order name: Cardiac monitoring; Complete Time: 18:37 ms3 10/15 18:22 Order name: EKG - Nurse/Tech; Complete Time: 18:37 ms3 10/15 18:22 Order name: IV Saline Lock; Complete Time: 18:37 ms3 10/15 18:22 Order name: Labs collected and sent; Complete Time: 18:45 ms3 10/15 18:22 Order name: O2 Per Protocol; Complete Time: 18:37 ms3 10/15 18:22 Order name: O2 Sat Monitoring; Complete Time: 18:37 ms3 EC:39 Rate is 94 beats/min. Rhythm is regular. QRS Pound is Normal. [place] interval is normal. QRS ms3 interval is normal. QT interval is normal. Clinical impression: Normal ECG. Interpreted by me. Reviewed by me. Administered Medications: 18:37 Not Given (Patient already took ): aspirinchewable tablet 324 mg PO once; 81 mg tablets cp4 x 4 Disposition Summary: 10/16/23 19:21 Hospitalization Ordered Notes: Hospitalization Status: Observation ms3 Provider: Prince Lucina ms3 Location: Telemetry/MedSurg (observation) ms3 Condition: Stable ms3 Problem: new ms3 Symptoms: are unchanged ms3 Bed/Room Type: Standard ms3 Room Assignment: 203(10/16/23 22:57) wm Diagnosis - Chest pain, unspecified ms3 Forms: - Medication Reconciliation Form ms3 - SBAR form ms3 - Leadership Thank You Letter ms3 Signatures: Dispatcher [employer] EDMS Brady Ann, DO DO ms3 Shaina Muñoz Christina cp4 Corrections: (The following items were deleted from the chart) 18:23 18:23 BASIC METABOLIC PANEL+C.LAB.BRZ ordered. EDMS EDMS 18:23 18:23 CBC+H.LAB.BRZ ordered. EDMS EDMS 18:23 18:23 HEPATIC FUNCTION+C.LAB.BRZ ordered. EDMS EDMS 18:23 18:23 MAGNESIUM+C.LAB.BRZ ordered. EDMS EDMS 18:23 18:23 Troponin High Sensitivity+C.LAB.BRZ ordered. EDMS EDMS 18:23 18:23 Chest Single View+RAD.RAD.BRZ ordered. EDMS EDMS 22:49 19:21 ms3 wm 22:57 22:49 201 wm wm
--- NOTE | 2023-10-16 20:13 | P.HP ---
Certification for Inpatient Patient admitted to: Observation With expected LOS: <2 Midnights Practitioner: I am a practitioner with admitting privileges, knowledge of patient current condition, hospital course, and medical plan of care. Services: Services provided to patient in accordance with Admission requirements found in Title 42 Section 412.3 of the Code of Federal Regulations Patient History Date of Service: 10/16/23 Reason for admission: chest pain History of Present Illness: Patient is a 58-year-old male with a past medical history of type 2 diabetes mellitus, coronary disease status post PCI, and chronic systolic CHF. Last EF of 20% as per patient. He presented to the ER complaining of 1 week history of chest pain, dizziness and shortness of breath. Patient also reports that he has been hypotensive and bradycardic. He has been told that he has extensive coronary artery disease that will most likely require CABG. He has also been told that he is going to need valvular replacement. However, in order to proceed with his valvular replacement, he will need to have oral maxillofacial surgeon for multiple tooth extraction due to his poor dentition. Patient was recently seen at [facility] for the above symptoms and was advised to transfer to [place] for higher level of care that he chose to go home first. He returns here for similar symptoms. During my evaluation ER, patient was alert and awake. He had borderline blood pressure with SBP in the high 90s. I have reviewed his medications. He is on dual antiplatelet therapy, high intensity s tatin, metformin, farxiga, lisinopril, Coreg and spironolactone. Allergies No Known Allergies Allergy (Verified 04/19/19 16:57) Home Medications: Aspirin Chewable [Aspirin Chewable*] 1 tab PO BEDTIME 05/24/19 Atorvastatin Calcium [Lipitor] 1 tab PO BEDTIME 05/24/19 Clopidogrel Bisulfate [Plavix*] 1 tab PO BEDTIME 05/24/19 carvediloL [Coreg*] 12.5 mg PO BID 05/24/19 lisinopriL [Lisinopril] 1 tab PO BEDTIME 05/24/19 Budesonide/Formoterol Fumarate [Symbicort 160-4.5 Mcg Inhaler] 2 puff IH BID #1 [id number].[email or web address] 05/26/19 Albuterol Sulfate [Proair Hfa] 1 puff IH PRN PRN 07/26/21 Levothyroxine Sodium [Unithroid] 50 mcg PO BEDTIME 07/26/21 Metoprolol Succinate [Toprol Xl] 25 mg PO BID 07/26/21 - Past Medical/Surgical History Diabetic: No -: Coronary artery disease -: Hypertension -: Tobacco abuse -: COPD -: [place] -: Pneumothorax -: Heart Stent x 3 (2017) Psychosocial/ Personal History: Patient lives at home. - Family History Mother -: Heart disease, Hypertension Father -: Kidney disease - Social History Alcohol use: No CD- Drugs: No Caffeine use: Yes Physical Examination - Physical Exam General: In no apparent distress HEENT: Atraumatic, Normocephalic Respiratory: Clear to auscultation bilaterally Cardiovascular: Regular rate/rhythm, Other (LifeVest in place), Systolic murmur Gastrointestinal: Soft and benign, No tenderness Musculoskeletal: No swelling, No contractures Neurological: Normal speech, Cranial nerves 3-12 intact - Studies Laboratory Data (last 24 hrs) 10/16/23 10/16/23 18:43 18:43 WBC 8.80 Hgb 13.5 L Hct 40.3 Plt Count 180 Sodium 137 Potassium 3.8 BUN 17 Creatinine 0.92 Glucose 149 H Magnesium 2.0 Total Bilirubin 0.4 AST 11 L ALT 22 Alkaline Phosphatase 70 Assessment and Plan - Problems (Diagnosis) (1) Chest pain Onset Date: 10/23/17 Current Visit: No Status: Acute Qualifiers: (2) CAD (coronary artery disease) Current Visit: No Status: Chronic Qualifiers: (3) COPD (chronic obstructive pulmonary disease) Current Visit: No Status: Chronic Qualifiers: (4) HTN (hypertension) Current Visit: No Status: Chronic Qualifiers: - Plan Assessment Patient is a 58-year-old male with extensive cardiovascular history including coronary disease and chronic systolic CHF. He also has a history of COPD. He is being admitted for evaluation of ongoing chest pain for the past week. Associated symptoms include dizziness and shortness of breath. Patient knows that he will need CABG. he first troponin is negative. His EKG shows normal sinus rhythm. It is actually normal without ischemic changes. Chest pain Will admit patient under observation with telemetry Will obtain a 2D echo to assess for progression of structural and valvular heart disease Cardiology has been consulted Dr. Almanzar was consulted and recommends keeping patient n.p.o. after midnight Trend troponin Check lipid panel and hemoglobin A1c Will resume patient's home regimen including dual antiplatelet and atorvastatin Chronic systolic CHF Patient has a LifeVest in place His blood pressure cannot tolerate lisinopril, spironolactone and Coreg at this time He is also on fark [employer], which is appropriate for survival benefits Type 2 diabetes mellitus Patient takes metformin, which we will hold off while inpatient Send COPD Not in acute exacerbation DVT prophylaxisLovenox Dispopending cardiology evaluation - Advance Directives Does patient have a Living Will: No Does patient have a Durable POA for Healthcare: No
--- NOTE | 2023-10-16 20:16 | RAD REPORT ---
[facility] CLINICAL HISTORY: CHEST PAIN COMPARISON: Chest Single View dated 09/01/2022; Chest Single View dated 01/16/2022; Chest Single View dated 12/06/2021; Chest Single View dated 09/30/2021 TECHNIQUE: Portable AP view of the chest. FINDINGS: The lungs are clear. No pneumothorax or effusion. The cardiomediastinal contours are unre markable. Electronic devices overlying the mediastinum and lower regions of the hemithorax bilateral ly limit evaluation. IMPRESSION: No acute cardiopulmonary process.
[2023-10-16 22:44] VITALS: BMI 24.4
[2023-10-16] MEDS ORDERED: HYDROMORPHONE HCL 0.5 MG/0.5 ML INJ IV ONE (23:06)
[2023-10-17] MEDS: ZOLPIDEM TARTRATE 5 MG TABLET PO ONE (00:24)
[2023-10-17 00:32] VITALS: O2SAT 97
[2023-10-17 08:30] VITALS: TEMP 97.4
--- NOTE | 2023-10-17 12:11 | P.PN ---
Subjective Date of Service: 10/17/23 Chief Complaint: chest pain Pt is resting comfortably in bed. He denies any chest pain. He had multiple cardiac work up at [facility]. Waiting for Cardiology eval. He is wearing a life vest. Pt need teeth extraction before CABG and valve repair. No other complaints. Review of Systems General: Unremarkable Eyes: Unremarkable ENT: Unremarkable Respiratory: Unremarkable Cardiovascular: Unremarkable Gastrointestinal: Unremarkable Genitourinary: Unremarkable Musculoskeletal: Unremarkable Integumentary: Unremarkable Neurological: Unremarkable Lymphatics: Unremarkable Physical Examination - Vital Signs Temperature: 97.4 F Blood Pressure: 118/69 Pulse: 75 Respirations: 16 Pulse Ox (%): 96 - Physical Exam General: Alert, In no apparent distress, Oriented x3 HEENT: Atraumatic, Normocephalic, PERRLA Neck: Supple, 2+ carotid pulse no bruit, JVD not distended Respiratory: Clear to auscultation bilaterally, Normal air movement Cardiovascular: No edema, Normal pulses, Regular rate/rhythm Gastrointestinal: Normal bowel sounds, Soft and benign, Non-distended Musculoskeletal: No clubbing, No swelling Integumentary: No rashes, No breakdown Neurological: Normal speech, Normal strength at 5/5 x4 extr, Normal tone, Sensation intact, Cranial nerves 3-12 intact Lymphatics: No axilla or inguinal lymphadenopathy - Studies Laboratory Data (last 24 hrs) 10/16/23 10/16/23 18:43 18:43 WBC 8.80 Hgb 13.5 L Hct 40.3 Plt Count 180 Sodium 137 Potassium 3.8 BUN 17 Creatinine 0.92 Glucose 149 H Magnesium 2.0 Total Bilirubin 0.4 AST 11 L ALT 22 Alkaline Phosphatase 70 Assessment And Plan - Plan Chest pain: The chest pain is intermittent: Pt has had multiple cardiac work up at [facility]. HE was advised to follow up withhis pocket builder at [facility]. Dr. Almanzar will see him soon. Pt need teeth extraction before CABG and valve repair. Will continue dual antiplatelet and atorvastatin Chronic systolic CHF: Pt has a life vest in place. Continue lisinopril, spironolactone, farxiga, and Coreg Type 2 diabetes mellitus: Will continue accuchek, SSI and ADA diet. Hx of COPD: Stable. Not in acute exacerbation. Will give prn duoneb. DVT ppx: Lovenox Dispo: pending hospital course
--- NOTE | 2023-10-17 15:06 | P.CNS ---
Date of Consult: 10/17/23 Chief Complaint: chest pain History of Present Illness: Patient with PMH of CAD s/p multiple PCIs, Heart failure reduced EF, was told recently that he got multivessel CAD and will need valve replacement, presented her with Chest pain, atypical, patient got all work up done at [facility], but things were placed on hold as he need dental work up prior to clereance and insurance is not covering it. no other cardiac symptoms. Allergies No Known Allergies Allergy (Verified 04/19/19 16:57) Home Medications: Atorvastatin Calcium [Lipitor] 1 tab PO BEDTIME 05/24/19 Clopidogrel Bisulfate [Plavix*] 1 tab PO BEDTIME 05/24/19 carvediloL [Coreg*] 12.5 mg PO BID 05/24/19 lisinopriL [Lisinopril] 0.5 tab PO BEDTIME 05/24/19 Budesonide/Formoterol Fumarate [Symbicort 160-4.5 Mcg Inhaler] 2 puff IH BID #1 hfa.aer.ad 05/26/19 Albuterol Sulfate [Proair Hfa] 1 puff IH PRN PRN 07/26/21 Levothyroxine Sodium [Unithroid] 75 mcg PO BEDTIME 07/26/21 Aspirin [Aspirin EC 325 MG] 325 mg PO DAILY 10/17/23 Dapagliflozin Propanediol [Farxiga] 10 mg PO DAILY 10/17/23 Metformin ER [Glucophage ER*] 500 mg pe PO DAILY 10/17/23 Spironolactone 25 mg PO DAILY 10/17/23 - Past Medical/Surgical History Diabetic: No -: Coronary artery disease -: Hypertension -: Tobacco abuse -: COPD -: MS -: Pneumothorax -: Heart Stent x 3 (2016) Psychosocial/ Personal History: Patient lives at home. - Family History Mother Medical History: Heart disease, Hypertension Father Medical History: Kidney disease - Social History Smoking Status: Current every day smoker Alcohol use: No CD- Drugs: No Caffeine use: Yes Review of Systems 10-point ROS is otherwise unremarkable Physical Examination Temp Pulse Resp BP Pulse Ox 97.4 F 76 14 111/74 96 10/17/23 12:19 10/17/23 14:00 10/17/23 14:00 10/17/23 14:00 10/17/23 14:00 General: Alert, Oriented x3 HEENT: Atraumatic Neck: Supple Respiratory: Clear to auscultation bilaterally Cardiovascular: No edema, Normal S1 S2 Gastrointestinal: Normal bowel sounds Laboratory Data (last 24 hrs) 10/16/23 10/16/23 18:43 18:43 WBC 8.80 Hgb 13.5 L Hct 40.3 Plt Count 180 Sodium 137 Potassium 3.8 BUN 17 Creatinine 0.92 Glucose 149 H Magnesium 2.0 Total Bilirubin 0.4 AST 11 L ALT 22 Alkaline Phosphatase 70 - Problems (1) Chronic combined systolic (congestive) and diastolic (congestive) heart failure Current Visit: Yes Status: Acute Plan: Patient looks euvolemic on exam, NYHA 2, class C, repeated echo shows EF 35-40%. Continue Coreg Continue Lisinopril Continue Aldactone Continue Farxiga (2) Aortic stenosis Current Visit: Yes Status: Acute Plan: it looks moderate in severity according to our echo reading. Continue to monitor. (3) CAD (coronary artery disease) Current Visit: No Status: Chronic Plan: per patient he was told that he got Multivessel CAD and need CABG but that was deferred for dental work up. Continue ASA, Plavix Continue Lipitor 80 mg daily Qualifiers:
--- NOTE | 2023-10-17 15:40 | P.DS ---
Admission Date: 10/17/23 Discharge Date: 10/17/23 Discharge Condition: GOOD Reason for Admission: chest pain Brief History of Present Illness: Patient is a 58-year-old male with a past medical history of type 2 diabetes mellitus, coronary disease status post PCI, and chronic systolic CHF. Last EF of 20% as per patient. He presented to the ER complaining of 1 week history of chest pain, dizziness and shortness of breath. Patient also reports that he has been hypotensive and bradycardic. He has been told that he has extensive coronary artery disease that will most likely require CABG. He has also been told that he is going to need valvular replacement. However, in order to proceed with his valvular replacement, he will need to have oral maxillofacial surgeon for multiple tooth extraction due to his poor dentition. Patient was recently seen at [facility] for the above symptoms and was advised to transfer to [place] for higher level of care that he chose to go home first. He returns here for similar symptoms. During my evaluation ER, patient was alert and awake. He had borderline blood pressure with SBP in the high 90s. I have reviewed his medications. He is on dual antiplatelet therapy, high intensity statin, metformin, farxiga, lisinopril, Coreg and spironolactone. Hospital Course: Pt is a 58yo male with past medical history of type 2 diabetes mellitus, coronary disease status post PCI, and chronic systolic CHF (last EF of 20% as per patient) who presented with intermittent chest pain that started 1 week ago. On admission, pt reported chest pain, dizziness and shortness of breath. Lav studies showed normal troponin. We admitted pt and consulted Cardiology. The Linotype Worker evaluated pt and recommended follow up with his Linotype Worker at [facility]. There was no need to do any further cardiac work up because pt had extensive cardiac work up at [facility]. They are waiting for him to extract his teeth before they can do CABG and aortic valve replacement. Echo shows EF of 35 - 40% with Aortic stenosis. We continued home meds for other chronic medical problems. Pt was in NAD prior to discharge. . Vital Signs/Physical Exam: Temp Pulse Resp BP Pulse Ox 97.4 F 74 12 108/71 97 10/17/23 12:19 10/17/23 15:00 10/17/23 15:00 10/17/23 15:00 10/17/23 15:00 Laboratory Data at Discharge: WBC 8.80 thou/uL (4.3-10.9) 10/16/23 18:43 Hgb 13.5 g/dL (13.6-17.9) L 10/16/23 18:43 Hct 40.3 % (39.6-49.0) 10/16/23 18:43 Plt Count 180 thou/uL (152-406) 10/16/23 18:43 Sodium 137 mEq/L (136-145) 10/16/23 18:43 Potassium 3.8 mEq/L (3.5-5.1) 10/16/23 18:43 BUN 17 mg/dL (7-18) 10/16/23 18:43 Creatinine 0.92 mg/dL (0.70-1.30) 10/16/23 18:43 Glucose 149 mg/dL (74-106) H 10/16/23 18:43 Magnesium 2.0 mg/dL (1.6-2.4) 10/16/23 18:43 Total Bilirubin 0.4 mg/dL (0.2-1.0) 10/16/23 18:43 AST 11 U/L (15-37) L 10/16/23 18:43 ALT 22 U/L (16-61) 10/16/23 18:43 Alkaline Phosphatase 70 U/L (45-117) 10/16/23 18:43 Triglycerides 126 mg/dL (<150) 10/17/23 03:08 Cholesterol 123 mg/dL (<200) 10/17/23 03:08 HDL Cholesterol 29 mg/dL (40-60) L 10/17/23 03:08 Cholesterol/HDL Ratio 4.24 10/17/23 03:08 Home Medications: Atorvastatin Calcium [Lipitor] 1 tab PO BEDTIME 05/24/19 Clopidogrel Bisulfate [Plavix*] 1 tab PO BEDTIME 05/24/19 carvediloL [Coreg*] 12.5 mg PO BID 05/24/19 lisinopriL [Lisinopril] 0.5 tab PO BEDTIME 05/24/19 Budesonide/Formoterol Fumarate [Symbicort 160-4.5 Mcg Inhaler] 2 puff IH BID #1 hfa.aer.ad 05/26/19 Albuterol Sulfate [Proair Hfa] 1 puff IH PRN PRN 07/26/21 Levothyroxine Sodium [Unithroid] 75 mcg PO BEDTIME 07/26/21 Aspirin [Aspirin EC 325 MG] 325 mg PO DAILY 10/17/23 Dapagliflozin Propanediol [Farxiga] 10 mg PO DAILY 10/17/23 Metformin ER [Glucophage ER*] 500 mg pe PO DAILY 10/17/23 Spironolactone 25 mg PO DAILY 10/17/23 Physician Discharge Instructions: Continue ad shlomo activity. Take home meds as prescribed. Wear your lie vest all the time. Follow up with Linotype Worker at [facility]. Follow up with PCP within 1 - 2 weeks. Diet: AHA Activity: Ad shlomo Followup: NONE,NONE [Primary Care Provider] -
[2023-10-17 15:49] VITALS: BP 108/71
[2023-10-17] MEDS ORDERED: carvediloL 12.5 MG TAB PO SCH (17:00)
[2023-10-17] MEDS ORDERED: ATORVASTATIN 80 MG TAB PO SCH (21:00)
[2023-10-17] MEDS ORDERED: lisinopriL 5 MG TAB PO SCH (21:00)
[2023-10-17] MEDS ORDERED: DULERA 200/5 (MOMETASONE/FORMOTEROL) INHALER IH SCH (21:00)
[2023-10-18] MEDS ORDERED: LEVOTHYROXINE SOD 0.075 MG TAB PO SCH (06:30)
[2023-10-18] MEDS ORDERED: **PT MED**Dapagliflozin Propanediol [Farxiga] 10 MG Tablet PO SCH (09:00)
[2023-10-18] MEDS ORDERED: ASPIRIN EC 325 MG TABLET PO SCH (09:00)
[2023-10-18] MEDS ORDERED: SPIRONOLACTONE 25 MG TABLET PO SCH (09:00)
--- NOTE | 2023-10-20 07:53 | ECHO ---
HEIGHT: 6 ft 1 in WEIGHT: 185 lb 0 oz DATE OF STUDY: 10/17/[address]: Prince Lindy Verdugo MD 2-DIMENSIONAL: YES M.MODE: YES DOPPLER: YES COLOR FLOW: YES TDS: NO PORTABLE: YES DEFINITY: NO BUBBLE STUDY: NO DIAGNOSIS: CHEST PAIN/DIZZINESS CARDIAC HISTORY: CATHERIZATION: YES SURGERY: NO PROSTHETIC VALVE: NO PACEMAKER: NO MEASUREMENTS (cm) DIASTOLIC (NORMALS) SYSTOLIC (NORMALS) IVSd 1.0 (0.6-1.2) LA Diam 3.1 (1.9-4.0) LVEF 35-40% LVIDd 3.8 (3.5-5.7) LVIDs 3.1 (2.0-3.5) %FS 19% LVPWd 1.1 (0.6-1.2) Ao Diam 2.9 (2.0-3.7) 2 DIMENSIONAL ASSESSMENT: RIGHT ATRIUM: NORMAL LEFT ATRIUM: NORMAL RIGHT VENTRICLE: NORMAL LEFT VENTRICLE: NORMAL TRICUSPID VALVE: TRACE OF TRICUSPID REGURGITATION MITRAL VALVE: NORMAL PULMONIC VALVE: NORMAL AORTIC VALVE: CALCIFIED, MODERATE AORTIC STENOSIS PERICARDIAL EFFUSION: NONE AORTIC ROOT: NORMAL LEFT VENTRICULAR WALL MOTION: MODERATE GLOBAL HYPOKINESIS. MID TO DISTAL ANTERIOR/ ANTEROSEPTAL HYPOKINESIS. DOPPLER/COLOR FLOW: GRADE I DIASTOLIC DYSFUNCTION. COMMENTS: 1. MODERATE GLOBAL HYPOKINESIS, EJECTION FRACTION 35-40%, MODERATE REDUCED LEFT VENTRICULAR SYSTOLIC FUNCTION. 2. MID TO DISTAL ANTERIOR/ANTEROSEPTAL ORDAZ, SEVERE HYPOKINESIS. 3. GRADE I DIASTOLIC DYSFUNCTION. 4. POOR VISUALIZED AORTIC VALVE BUT CALCIFIED WITH MODERATE AORTIC STENOSIS. 5. NORMAL FILLING PRESSURES. TECHNOLOGIST: LORENZO GARCIA
--- NOTE | 2023-10-20 13:30 | EKG ---
Test Date: 2023-10-16 Test Time: 18:33:14 [place] Tender: WILLIAM MEASUREMENT RESULTS: Intervals: Rate: 94 MS: 150 QRSD: 106 QT: 362 QTc: 452 Daykin: P: 72 MS: 150 QRS: 45 T: 91 INTERPRETIVE STATEMENTS: Normal sinus rhythm Normal ECG Compared to ECG 09/01/2022 04:33:40 Ventricular premature complex(es) no longer present ST (T wave) deviation no longer present Possible ischemia no longer present Electronically Signed On 10-20-23 13:19:58 CDT by Dayton Mccord
== END 2023-10-17 16:41 | disposition home or self-care (01) | DRG 291 ==
LOC: ER 18:15 → ERHOLD 19:28 → 2ND 23:44 → 3RD-ICU 10-17 12:55 → OBSVTOIN 10-17 15:29
PROVIDERS: ADMIT Internal Medicine; ATTEND Hospitalist
DX: I11.0 Hypertensive heart disease with heart failure (principal); I50.41 Acute combined systolic (congestive) and diastolic (congestive) heart failure; E78.5 Hyperlipidemia, unspecified; I35.0 Nonrheumatic aortic (valve) stenosis; E11.9 Type 2 diabetes mellitus without complications; K21.9 Gastro-esophageal reflux disease without esophagitis; J44.9 Chronic obstructive pulmonary disease, unspecified; I25.10 Atherosclerotic heart disease of native coronary artery without angina pectoris; F17.200 Nicotine dependence, unspecified, uncomplicated; I25.2 Old myocardial infarction; Z95.5 Presence of coronary angioplasty implant and graft; Z79.84 Long term (current) use of oral hypoglycemic drugs; Z79.02 Long term (current) use of antithrombotics/antiplatelets; Z79.899 Other long term (current) drug therapy; Z79.890 Hormone replacement therapy
CPT/HCPCS: 36415; 71045; 80048; 80061; 80076; 83036; 83735; 84484; 85025; 93005; 93306; 99285; G0378; J1170; J3535

== ENCOUNTER 2024-06-07 14:28 | Emergency (ER) | payer OTHER ==
[2024-06-07 16:13] LABS: Absolute Basophils 0.1 K/uL (0-0.5); Absolute Eosinophils 0.4 K/uL (0-0.5); Absolute Lymphocytes (CBC) 2.3 K/uL (0.7-4.9); Absolute Monocytes 1.5 K/uL (0.1-1.3); Absolute Neutrophil 5.6 K/uL (1.8-8.0); Basophils % 1.1 % (0-1.3); Lymphocytes % 23.6 % (15.3-44.8); MCH 30.2 pg (27.0-35.0); MCHC 32.5 g/dL (32.0-36.0); MCV 92.9 fL (80-100); MPV 9.5 fL (7.6-11.3); Monocytes % 14.8 % (3.3-12.3); Neutrophils % 56.5 % (41.7-73.7); Platelets 189 thou/uL (152-406); RBC Red Blood Cell Count 4.63 M/uL (4.33-5.43); Red Cell Distribution Width 15.2 % (12.1-15.2)
[2024-06-07 16:19] LABS: PT Prothrombin Time 10.8 SECONDS (9.4-12.5); PTT, Activated Partial Thromb 32.5 SECONDS (24.3-36.9); Protime INR 0.96
--- NOTE | 2024-06-07 16:24 | RAD REPORT ---
EXAMINATION: CT HEAD WITHOUT CONTRAST CLINICAL INDICATION: Male, 59 years old.SYNCOPE TECHNIQUE: Axial CT images from the skull base to the vertex without intravenous contrast. Coronal an d sagittal reformatted images were created from the data set. One or more of the following dose reduction techniques were used: Automated exposure control, adjustment of the mA and/or kV according to patient size, and/or iterative reconstruction. Unless otherwise specified, incidental findings do not require dedicated imaging follow-up. [id number]. COMPARISON: 12/06/2021 FINDINGS: INTRACRANIAL: No acute intracranial hemorrhage. No hydrocephalus. No mass effect or midline shift. Mi ld chronic small vessel ischemic changes.Tiny remote right muñiz radiata lacunar infarct. VASCULATURE: No visualized abnormalities in the arteries or dural venous sinuses. SCALP/SKULL: No significant soft tissue or osseous abnormalities. SINUSES: Circumferential thickening of the left maxillary sinus. IMPRESSION: No acute intracranial abnormality.
--- NOTE | 2024-06-07 16:26 | RAD REPORT ---
EXAM: Chest Single View HISTORY: SOB COMPARISON: 10/16/2023 FINDINGS: LUNGS/PLEURA: The lungs are clear. No pleural effusions or pneumothorax. No pulmonary edema. Apical s carring. MEDIASTINUM: The mediastinal silhouette is within normal limits. CARDIAC: The cardiac silhouette is within normal limits. UPPER ABDOMEN: No significant abnormality. BONES: No acute abnormality. LINES/TUBES/OTHER: N/A IMPRESSION: No evidence of acute cardiopulmonary disease.
[2024-06-07 16:31] LABS: Creatine Phosphokinase 81 U/L (39-308); NT PRO-BNP 90 pg/mL (<125)
[2024-06-07 16:32] LABS: Anion Gap 10.1 mEq/L (5.0-15.0); Potassium 4.1 mEq/L (3.5-5.1); Troponin High Sensitivity 10.6 pg/mL (<58.9)
[2024-06-07 16:39] LABS: Barbiturates NEGATIVE (NEGATIVE); Benzodiazepines NEGATIVE (NEGATIVE); Cocaine NEGATIVE (NEGATIVE); METHAMPHETAM NEGATIVE (NEGATIVE); Methadone NEGATIVE (NEGATIVE); Opiates NEGATIVE (NEGATIVE); Phencyclidine NEGATIVE (NEGATIVE); THC Cannibis NEGATIVE (NEGATIVE)
[2024-06-07] MEDS ORDERED: MECLIZINE HCL 12.5 MG TAB ONE (18:21)
--- NOTE | 2024-06-07 19:35 | ER ---
Nurse's Notes [facility] Name: Garcia Matta Age: 59 yrs Sex: Male : 1965 Arrival Date: 06/07/2024 Time: 14:28 Bed 23 Private MD: Diagnosis: Dizziness and giddiness Presentation: 06/07 15:37 Chief complaint: Patient states: Lightheaded, almost passing out x a couple days, jl7 intermittent SOB. Coronavirus screen: At this time, the client does not indicate any symptoms associated with coronavirus-19. Ebola Screen: No symptoms or risks identified at this time. Initial Sepsis Screen: Does the patient meet any 2 criteria? No. Patient's initial sepsis screen is negative. Does the patient have a suspected source of infection? No. Patient's initial sepsis screen is negative. Risk Assessment: Do you want to hurt yourself or someone else? Patient reports no desire to harm self or others. Onset of symptoms is unknown. 15:37 Method Of Arrival: Ambulatory jl7 15:37 Acuity: CATARINA 3 jl7 Triage Assessment: 15:39 General: Appears in no apparent distress. uncomfortable, Behavior is calm, cooperative, jl7 appropriate for age. Pain: Denies pain. Neuro: Level of Consciousness is awake, alert, obeys commands, Oriented to person, place, time, situation. Cardiovascular: Patient's skin is warm and dry. Respiratory: Airway is patent Respiratory effort is even, unlabored, Respiratory pattern is regular, symmetrical. Historical: - Allergies: 15:39 No Known Allergies; jl7 - PMHx: 15:39 CAD; COPD; GERD; Heart Murmur; Hyperlipidemia; Hypertension; Myocardial infarction; jl7 Pneumothorax; AAA (Pneumothorax); - PSHx: 15:39 stents x 3; jl7 - Immunization history:: Adult Immunizations unknown. - Infectious Disease History:: Denies. - Social history:: Smoking status: Patient reports the use of cigarette tobacco products, smokes one-half pack cigarettes per day. Screenin:42 [facility] ED Fall Risk Assessment (Adult) History of falling in the last 3 months, me1 including since admission No falls in past 3 months (0 pts) Confusion or Disorientation No (0 pts) Intoxicated or Sedated No (0 pts) Impaired Gait No (0 pts) Mobility Assist Device Used No (0 pt) Altered Elimination No (0 pt) Score/Fall Risk Level 0 - 2 = Low Risk Maintained a safe environment, Provided non-skid footwear, Hourly rounding (assess needs \T\ fall precautionary measures) done. Abuse screen: Denies threats or abuse. Nutritional screening: No deficits noted. Tuberculosis screening: No symptoms or risk factors identified. Assessment: 15:42 General: Appears comfortable, slender, unkempt, well developed, Behavior is calm, me1 cooperative, appropriate for age, Reports Lightheaded, almost passing out x a couple days, intermittent SOB. Pain: Denies pain. Neuro: Level of Consciousness is awake, alert, obeys commands, Oriented to person, place, time, situation, Appropriate for age Reports dizziness, a syncopal episode. Cardiovascular: Patient's skin is warm and dry. Respiratory: Airway is patent Respiratory effort is even, unlabored, Respiratory pattern is regular, symmetrical. GI: No signs and/or symptoms were reported involving the gastrointestinal system. : No signs and/or symptoms were reported regarding the genitourinary system. EENT: No signs and/or symptoms were reported regarding the EENT system. Derm: Skin is intact, is healthy with good turgor, Skin is pink, warm \T\ dry. Musculoskeletal: No signs and/or symptoms reported regarding the musculoskeletal system. Circulation, motion, and sensation intact. Range of motion: intact in all extremities. 18:45 General: Ambulates with steady gait.. me1 Vital Signs: 15:37 BP 117 / 86; Pulse 77; Resp 15; Temp 97.9; Pulse Ox 98% ; Weight 83.91 kg; Height 6 ft. jl7 1 in. ; Pain 0/10; 16:00 BP 110 / 79; Pulse 78; Resp 16; Pulse Ox 99% on R/A; me1 17:07 BP 115 / 87 RA Sitting; zm 17:07 BP 123 / 92 RA Supine; zm 17:07 BP 109 / 84 RA Standing; zm 18:00 BP 124 / 87; Pulse 79; Resp 16; Pulse Ox 99% on R/A; me1 19:00 BP 106 / 86; Pulse 79; Resp 15; Pulse Ox 99% on R/A; me1 15:37 Body Mass Index 24.41 (83.91 kg, 185.42 cm) jl7 15:37 Pain Scale: Adult 7 ED Course: 14:32 Patient arrived in ED. ra3 14:34 Aziza Marsh PA-C [facility] sb4 14:34 Mary Arias MD is Attending Physician. sb4 15:39 Triage completed. jl7 15:39 Arm band placed on right wrist. jl7 15:42 Patient has correct armband on for positive identification. Bed in low position. Call me1 light in reach. Side rails up X2. Provided Education on: POC. Verbalized understanding.. Client placed on continuous cardiac and pulse oximetry monitoring. NIBP monitoring applied. electronic device monitor on. Pulse ox on. NIBP on. 15:42 No provider procedures requiring assistance completed. me1 15:50 Massiel Acharya, CINDY is Primary Nurse. me1 16:02 Initial lab(s) drawn, by me, sent to lab. EKG done, by ED staff, reviewed by Aziza meMihai Marsh PA-C. Inserted saline lock: 22 gauge in right antecubital area, using aseptic technique. 16:04 UDS Sent. me1 16:04 Ptt, Activated Sent. me1 16:05 PT-INR Sent. me1 16:05 BNP Sent. me1 16:05 Basic Metabolic Panel Sent. me1 16:05 CBC with Diff Sent. me1 16:05 Troponin HS Sent. me1 16:13 XRAY Chest (1 view) In Process Unspecified. EDMS 16:14 Head Brain Wo Cont CT In Process Unspecified. EDMS 16:25 Urine collected: clean catch specimen, isabelle colored. me1 16:36 UDS Sent. zm 18:12 Troponin HS: at 1810 Sent. me1 19:44 IV discontinued, intact, bleeding controlled, No redness/swelling at site. Pressure me1 dressing applied. Administered Medications: 18:23 Drug: Meclizine PO 25 mg PO once Route: PO; me1 18:51 Follow up: Response: No adverse reaction me1 Medication: 15:42 VIS not applicable for this client. me1 Outcome: 19:35 Discharge ordered by . sb4 19:44 Discharged to home ambulatory, with significant other, me1 19:44 Condition: stable 19:44 Discharge instructions given to patient, significant other, Instructed on discharge instructions, follow up and referral plans. medication usage, Demonstrated understanding of instructions, follow-up care, medications, Prescriptions given X 1, 19:49 Patient left the ED. il1 Signatures: Dispatcher [employer] EDKS Linda Ramirez RN RN jl7 Eulalia Gold Sophia, PA-C PAEdinson sb4 Massiel Acharya RN RN me1 Evelia Elliott ra3 Corrections: (The following items were deleted from the chart) 16:11 16:04 CREATINE PHOSPHOKINASE+C.LAB.BRZ drawn and sent. [facility] EDKS 17:09 15:37 Chief complaint: Patient states: Lightheaded, almost passing out x a couple days, me1 intermittent SOB jl7 19:51 19:50 Reassessment: [place] [id number]
--- NOTE | 2024-06-07 19:36 | EDPHYS ---
Physician Documentation [facility] Name: Garcia Matta Age: 59 yrs Sex: Male : 1965 Arrival Date: 06/07/2024 Time: 14:28 Bed 23 Private MD: ED Physician Mary Arias HPI: 06/07 16:05 This 59 yrs old Male presents to ER via Ambulatory with complaints of Passed Out Prior sb4 To Arrival, Dizziness. 16:06 Patient is a 59-year-old male with extensive cardiac history-coronary artery disease, sb4 congestive heart failure, COPD. Has been seen by multiple cordwood cutter. Was told that he needs a CABG and aortic valve replacement. He has been having difficulty getting things scheduled due to insurance reasons. He has had multiple hospital admissions for cardiac related issues. States that most recently, he has been experience episodes where he "shakes all over "and causes him to pass out. He denies any history of seizures or epilepsy. He reports compliance with all of his medications which include antihypertensives, clopidogrel, statin, and spironolactone. Historical: - Allergies: 15:39 No Known Allergies; jl7 - PMHx: 15:39 CAD; COPD; GERD; Heart Murmur; Hyperlipidemia; Hypertension; Myocardial infarction; jl7 Pneumothorax; AAA (Pneumothorax); - PSHx: 15:39 stents x 3; jl7 - Immunization history:: Adult Immunizations unknown. - Infectious Disease History:: Denies. - Social history:: Smoking status: Patient reports the use of cigarette tobacco products, smokes one-half pack cigarettes per day. ROS: 16:06 Constitutional: Negative for fever, chills, and weight loss, sb4 16:06 Neuro: Positive for syncope, Per HPI, 16:06 All other systems are negative, Exam: 16:06 Constitutional: This is a well developed, well nourished patient who is awake, alert, sb4 and in no acute distress. Head/Face: Normocephalic, atraumatic. Eyes: Extra-ocular motions intact. Periorbital areas with no swelling, redness, or edema. ENT: Mucous membranes moist. Cardiovascular: Regular rate and rhythm with a normal S1 and S2. Respiratory: No increased work of breathing, no retractions or nasal flaring. Abdomen/GI: Soft, non-tender, no distension. Skin: Warm, dry with normal turgor. Normal color with no rashes, no lesions, and no evidence of cellulitis. MS/ Extremity: Pulses equal, no cyanosis. Neurovascular intact. Full, normal range of motion. Neuro: Awake and alert, GCS 15, oriented to person, place, time, and situation. Motor strength 5/5 in all extremities. Sensory grossly intact. Vital Signs: 15:37 BP 117 / 86; Pulse 77; Resp 15; Temp 97.9; Pulse Ox 98% ; Weight 83.91 kg; Height 6 ft. jl7 1 in. ; Pain 0/10; 16:00 BP 110 / 79; Pulse 78; Resp 16; Pulse Ox 99% on R/A; me1 17:07 BP 115 / 87 RA Sitting; zm 17:07 BP 123 / 92 RA Supine; zm 17:07 BP 109 / 84 RA Standing; zm 18:00 BP 124 / 87; Pulse 79; Resp 16; Pulse Ox 99% on R/A; me1 19:00 BP 106 / 86; Pulse 79; Resp 15; Pulse Ox 99% on R/A; me1 15:37 Body Mass Index 24.41 (83.91 kg, 185.42 cm) jl7 15:37 Pain Scale: Adult jl7 MDM: 15:11 Medical Screening Exam initiated sb4 20:55 Data reviewed: vital signs, nurses notes, lab test result(s), EKG, radiologic studies, sb4 and as a result, I will discharge patient. Counseling: I had a detailed discussion with the patient and/or guardian regarding the historical points, exam findings, and any diagnostic results supporting the discharge/admit diagnosis, lab results, radiology results, the need for outpatient follow up, for definitive care, a cordwood cutter, an ENT specialist, a neurologist, to return to the emergency department if symptoms worsen or persist or if there are any questions or concerns that arise at home. 06/07 15:41 Order name: Basic Metabolic Panel; Complete Time: 16:33 jl7 06/07 15:41 Order name: CBC with Diff; Complete Time: 16:20 jl7 06/07 15:41 Order name: Troponin HS; Complete Time: 16:33 jl7 06/07 15:44 Order name: BNP; Complete Time: 16:33 sb4 06/07 15:44 Order name: PT-INR; Complete Time: 16:20 sb4 06/07 15:44 Order name: Ptt, Activated; Complete Time: 16:20 sb4 06/07 15:47 Order name: UDS; Complete Time: 16:43 sb4 06/07 16:10 Order name: Creatine Phosphokinase; Complete Time: 16:33 EDMS 06/07 16:47 Order name: Troponin HS: at 1810; Complete Time: 18:34 sb4 06/07 15:41 Order name: XRAY Chest (1 view); Complete Time: 16:31 jl7 06/07 15:44 Order name: Head Brain Wo Cont CT; Complete Time: 16:25 sb4 06/07 15:41 Order name: Cardiac monitoring; Complete Time: 16:36 jl7 06/07 15:41 Order name: EKG - Nurse/Tech; Complete Time: 15:43 jl7 06/07 15:41 Order name: IV Saline Lock; Complete Time: 16:03 jl7 06/07 15:41 Order name: Labs collected and sent; Complete Time: 16:03 jl7 06/07 15:41 Order name: O2 Per Protocol; Complete Time: 16:03 jl7 06/07 15:41 Order name: O2 Sat Monitoring; Complete Time: 16:03 jl7 06/07 16:45 Order name: Orthostatics; Complete Time: 18:06 sb4 06/07 18:19 Order name: Misc. Order: ambulate; Complete Time: 19:50 sb4 EC:46 Rate is 78 beats/min. Rhythm is regular, Normal Sinus Rhythm. ME interval is normal at sb4 140 msec. QRS interval is normal at 106 msec. QT interval is normal at 386 msec. No Q waves. T waves are Normal. No ST changes noted. Clinical impression: No evidence of ischemia. Interpreted by me. Reviewed by me. Administered Medications: 18:23 Drug: Meclizine PO 25 mg PO once Route: PO; me1 18:51 Follow up: Response: No adverse reaction me1 Disposition Summary: 06/07/24 19:35 Discharge Ordered Notes: Location: Home sb4 Problem: an ongoing problem sb4 Symptoms: have improved sb4 Condition: Stable sb4 Diagnosis - Dizziness and giddiness sb4 Followup: sb4 - With: Private Physician - When: 2 - 3 days - Reason: Further diagnostic work-up, Recheck today's complaints, Re-evaluation by your physician Discharge Instructions: - Discharge Summary Sheet sb4 - Dizziness, [id number] sb4 Forms: - Patient Portal Instructions sb4 - Leadership Thank You Letter sb4 Prescriptions: - Meclizine 25 mg Oral Tablet - take 1 tablet ORAL route every 8 hours As needed; 30 tablet; Refills: 0, sb4 Product Selection Permitted Signatures: Dispatcher [employer] EDLinda Brady, RN RN jl7 Aziza Marsh PA-C PAEdinson sb4 Massiel Acharya, RN RN me1 Corrections: (The following items were deleted from the chart) 15:41 15:41 BASIC METABOLIC PANEL+C.LAB.BRZ ordered. EDMS EDMS 15:41 15:41 CBC+H.LAB.BRZ ordered. EDMS EDMS 15:41 15:41 Troponin High Sensitivity+C.LAB.BRZ ordered. EDMS EDMS 15:41 15:41 Chest Single View+RAD.RAD.BRZ ordered. EDMS EDMS 15:44 15:44 Head Brain Wo Cont+CT.RAD.BRZ ordered. EDMS EDMS 15:44 15:44 PROBNP+C.LAB.BRZ ordered. EDMS EDMS 15:44 15:44 PROTIME (+INR)+COAG.LAB.BRZ ordered. EDMS EDMS 15:44 15:44 PTT, ACTIVATED+COAG.LAB.BRZ ordered. EDMS EDMS 16:11 15:48 CREATINE PHOSPHOKINASE+C.LAB.BRZ ordered. EDMS EDMS 16:47 16:47 Troponin High Sensitivity+C.LAB.BRZ ordered. EDMS EDMS
[2024-06-08 01:50] VITALS: TEMP 97.9
[2024-06-08 01:54] VITALS: O2SAT 99
[2024-06-08 01:55] VITALS: BP 106/86
--- NOTE | 2024-06-10 12:11 | EKG ---
Test Date: 2024-06-07 Test Time: 15:35:33 Project Safety Manager: ADE MEASUREMENT RESULTS: Intervals: Rate: 78 OK: 140 QRSD: 106 QT: 386 QTc: 440 [place]: P: 65 OK: 140 QRS: 47 T: 99 INTERPRETIVE STATEMENTS: Normal sinus rhythm T wave abnormality, consider lateral ischemia Abnormal ECG Compared to ECG 10/16/2023 18:33:14 T-wave abnormality now present Possible ischemia now present Electronically Signed On 06-10-24 12:10:24 MANAGER WATER by Jd Almanzar
== END 2024-06-07 19:49 | disposition home or self-care (01) ==
LOC: ER 14:28
DX: R42 Dizziness and giddiness (principal); R55 Syncope and collapse; I10 Essential (primary) hypertension; J44.9 Chronic obstructive pulmonary disease, unspecified; I25.2 Old myocardial infarction
CPT/HCPCS: 93005; 85025; 80048; 36415; 82550; 85610; 85730; 84484 ×2; 83880; 80307; 70450; 71045; 99285; J8597

== ENCOUNTER 2024-07-15 03:09 | Emergency (ER) | payer OTHER, SELFPAY ==
[2024-07-15 04:19] LABS: PT Prothrombin Time 11.1 SECONDS (9.4-12.5); Protime INR 1.06
[2024-07-15 04:23] LABS: Absolute Eosinophils 0.4 K/uL (0-0.5); Absolute Lymphocytes (CBC) 1.8 K/uL (0.7-4.9); Absolute Monocytes 1.3 K/uL (0.1-1.3); Absolute Neutrophil 5.4 K/uL (1.8-8.0); Basophils % 0.5 % (0-1.3); Eosinophils % 4.5 % (0-4.4); Hematocrit 40.5 % (39.6-49.0); Hemoglobin 13.6 g/dL (13.6-17.9); Lymphocytes % 19.7 % (15.3-44.8); MCH 31.4 pg (27.0-35.0); MCHC 33.7 g/dL (32.0-36.0); MCV 93.1 fL (80-100); Monocytes % 14.2 % (3.3-12.3); Neutrophils % 61.1 % (41.7-73.7); Nucleated Red Blood Cells % 0.1 % (0-0); Platelets 176 thou/uL (152-406); RBC Red Blood Cell Count 4.34 M/uL (4.33-5.43); Red Cell Distribution Width 13.7 % (12.1-15.2)
[2024-07-15 04:31] LABS: ALT/SGPT 25 U/L (16-61); AST/SGOT 12 U/L (15-37); Albumin 3.3 g/dL (3.4-5.0); Albumin/Globulin Ratio 0.9 (1.1-1.8); Alkaline Phosphatase 82 U/L (45-117); Anion Gap 6.5 mEq/L (5.0-15.0); BUN Blood Urea Nitrogen 12 mg/dL (7-18); Bicarbonate 26 mEq/L (21-32); Bilirubin Total 0.3 mg/dL (0.2-1.0); Globulin 3.6 g/dL (2.3-3.5); Glomerular Filtration Rate 103 ml/min (=/>90); Glucose Level 115 mg/dL (74-106); NT PRO-BNP 167 pg/mL (<125); Potassium 3.5 mEq/L (3.5-5.1); Protein, Total 6.9 g/dL (6.4-8.2); Sodium Level 141 mEq/L (136-145); Troponin High Sensitivity 21.2 pg/mL (<58.9)
[2024-07-15 04:38] LABS: Bilirubin Direct < 0.2 mg/dL (0-0.2); Bilirubin Indirect, Calculated 0.1 mg/dL (0.2-0.8)
--- NOTE | 2024-07-15 06:25 | RAD REPORT ---
EXAM: XR Chest, 1 View CLINICAL HISTORY: The patient is 59 years old and is Male; syncope TECHNIQUE: Frontal view of the chest. COMPARISON: No relevant prior studies available. FINDINGS: Lungs: Unremarkable. No consolidation. Pleural space: Unremarkable. No pneumothorax. Heart: Unremarkable. Mediastinum: Unremarkable. Normal mediastinal contour. Bones/joints: No acute findings. IMPRESSION: No acute findings in the chest. Electronically signed by: Stone Drew MD 07/15/2024 06:10 AM [facility] 8 Due to temporary technical issues with the [employer] reporting system, reports are being marlene d by the in-house radiologist without review as a courtesy to ensure prompt reporting the interpreting radiologist is fully responsible for the content of the report. Transcribed Date/Time: 07/15/2024 6:25 AM
--- NOTE | 2024-07-15 07:09 | RAD REPORT ---
EXAM: Angio Aorta For Dissection CLINICAL INDICATION: Male, 59 years chest pain, syncope TECHNIQUE: CTA of the aorta was obtained including the chest, abdomen and pelvis, with IV contrast, a s per department protocol. Axial, sagittal and coronal reconstructions were obtained. Post-processing was applied at the acquisition scanner with concurrent physician supervision which in cludes 3D reconstructions, MIPs, volume rendered images and/or shaded surface rendering. One or more of the following dose reduction techniques were used: Automated exposure control, adjustment of the mA and/or kV according to the patient size, and/or iterative reconstruction. Unless otherwise specified, incidental findings do not require dedicated imaging follow-up. [id number]. COMPARISON: No prior exam. FINDINGS: Chest: LOWER NECK: Visualized thyroid gland and soft tissues are normal. LUNGS AND AIRWAYS: Centrilobular and paraseptal emphysema.No suspicious and/or stable pulmonary nodul es. PLEURA: No pleural effusion. No pneumothorax. Hemidiaphragms are normally positioned. MEDIASTINUM AND LYMPH NODES: No mediastinal mass or fluid collection. Normal size mediastinal, hilar, and axillary lymph nodes. THORACIC AORTA: No thoracic aortic aneurysm. PULMONARY ARTERIES: Caliber is within normal limits. HEART: Normal heart size. Multivessel coronary artery diseaseNo significant pericardial effusion. Abdomen/Pelvis UPPER GI: No significant abnormality. LIVER: Benign appearing low density liver lesions. No suspicious mass. GALLBLADDER/BILE DUCTS: No biliary ductal dilatation.? PANCREAS: No mass, ductal dilation, or danny-pancreatic fluid. SPLEEN: Unremarkable. ADRENALS: No adrenal masses. KIDNEYS AND URETERS: Normal size and contour. No hydronephrosis.Low density and/or too small to lorna cterize renal lesions which are statistically benign. ABDOMINAL AORTA AND OTHER VESSELS: 4.4 infrarenal abdominal aortic aneurysm. PERITONEUM: No abnormal free fluid. No free air. Fat-containing inguinal hernias. LYMPH NODES: No pathologic lymphadenopathy. ABDOMINAL WALL: No significant abnormality. SMALL BOWEL/COLON: Small bowel has normal course and caliber. No colonic wall thickening or pericolon ic inflammatory changes. URINARY BLADDER: Underdistended but grossly unremarkable. REPRODUCTIVE ORGANS: No pathologic process. MUSCULOSKELETAL: No acute or suspicious osseous abnormality. ADDITIONAL FINDINGS: None. IMPRESSION: No aortic dissection. Infrarenal abdominal aortic aneurysm measuring 4.4 cm. No evidence of rupture. For management of fusiform aneurysmal abdominal aortas: Recommend follow-up every 12 months and recommend vascular consultation or continued care with a vascular specialist. No acute findings identified.
--- NOTE | 2024-07-15 07:19 | ER ---
Nurse's Notes [facility] Name: Garcia Matta Age: 59 yrs Sex: Male : 1965 Arrival Date: 07/15/2024 Time: 03:09 Bed DX2 Private MD: Diagnosis: Syncope Presentation: 07/15 03:18 Chief complaint: EMS states: syncope and fatigue. Coronavirus screen: Client denies cp4 travel out of the [place] in the last 14 days. At this time, the client does not indicate any symptoms associated with coronavirus-19. Ebola Screen: Patient negative for fever greater than or equal to 101.5 degrees Fahrenheit, and additional compatible Ebola Virus Disease symptoms Patient denies exposure to infectious person. Patient denies travel to an Ebola-affected area in the 21 days before illness onset. No symptoms or risks identified at this time. Initial Sepsis Screen: Does the patient meet any 2 criteria? No. Patient's initial sepsis screen is negative. Does the patient have a suspected source of infection? No. Patient's initial sepsis screen is negative. Risk Assessment: Do you want to hurt yourself or someone else? Patient reports no desire to harm self or others. Onset of symptoms was July 15, 2024. 03:18 Method Of Arrival: EMS: [facility] 4 03:18 Acuity: [place]ARINA 3 cp4 Triage Assessment: 03:20 General: Appears in no apparent distress. comfortable, Behavior is calm, cooperative, cp4 appropriate for age. Pain: Denies pain. Historical: - Allergies: 03:20 No Known Allergies; cp4 - PMHx: 03:20 AAA (Pneumothorax); CAD; COPD; GERD; Hyperlipidemia; Heart Murmur; Hypertension; cp4 Myocardial infarction; Pneumothorax; - PSHx: 03:20 stents x 3; cp4 - Immunization history:: Adult Immunizations up to date. - Infectious Disease History:: Denies. - Social history:: Smoking status: Patient reports the use of cigarette tobacco products, smokes one-half pack cigarettes per day. - Family history:: not pertinent. - Hospitalizations: : No recent hospitalization is reported. Screenin:33 [facility] ED Fall Risk Assessment (Adult) History of falling in the last 3 months, lg3 including since admission Yes- single mechanical fall (1 pt) Confusion or Disorientation No (0 pts) Intoxicated or Sedated No (0 pts) Impaired Gait No (0 pts) Mobility Assist Device Used No (0 pt) Altered Elimination No (0 pt) Score/Fall Risk Level 0 - 2 = Low Risk Oriented to surroundings, Maintained a safe environment, Educated pt \T\ family on fall prevention, incl call for assistance when getting out of bed, Assessed \T\ reinforced patient's understanding of fall precautions. Abuse screen: Denies threats or abuse. Denies injuries from another. Nutritional screening: No deficits noted. Tuberculosis screening: No symptoms or risk factors identified. Assessment: 03:33 General: Appears in no apparent distress. comfortable, Behavior is calm, cooperative. lg3 Pain: Denies pain. Neuro: No deficits noted. [place]aranjo Agitation-Sedation Scale (RASS): 0 - Alert and Calm Level of Consciousness is awake, alert, obeys commands, Oriented to person, place, time, situation. Cardiovascular: No deficits noted. Denies chest pain, shortness of breath, Capillary refill < 3 seconds Clubbing of nail beds is absent JVD is absent Patient's skin is warm and dry. Respiratory: No deficits noted. Airway is patent Respiratory effort is even, unlabored, Respiratory pattern is regular, symmetrical. GI: No deficits noted. No signs and/or symptoms were reported involving the gastrointestinal system. : No signs and/or symptoms were reported regarding the genitourinary system. EENT: No deficits noted. No signs and/or symptoms were reported regarding the EENT system. Derm: No deficits noted. No signs and/or symptoms reported regarding the dermatologic system. Skin is intact, is healthy with good turgor, Skin is dry, Skin is normal, Skin temperature is warm. Musculoskeletal: No deficits noted. Circulation, motion, and sensation intact. Range of motion: intact in all extremities. 04:53 Reassessment: Patient appears in no apparent distress at this time. No changes from lg3 previously documented assessment. Patient and/or family updated on plan of care and expected duration. Pain level reassessed. Patient is alert, oriented x 3, equal unlabored respirations, skin warm/dry/pink. Patient denies pain at this time. Patient states feeling better. Vital Signs: 03:18 BP 140 / 90; Pulse 90; Resp 18; Temp 98.1; Pulse Ox 100% ; Weight 85.73 kg; Height 6 cp4 ft. 1 in. ; Pain 0/10; 04:59 BP 146 / 95; Pulse 82; Resp 18; Pulse Ox 96% on R/A; rv1 03:18 Body Mass Index 24.94 (85.73 kg, 185.42 cm) cp4 03:18 Pain Scale: Adult cp4 ED Course: 03:17 Patient arrived in ED. rn 03:17 Will Pickens MD is Attending Physician. rn 03:20 Triage completed. cp4 03:20 Arm band placed on right wrist. Patient placed in a hallway bed, on a stretcher. cp4 03:22 Maintain EMS IV. Dressing intact. Good blood return noted. Site clean \T\ dry. Gauge \T\ cp 4 site: 20 LAC. Flushed with 10 mL NS. 03:33 Patient has correct armband on for positive identification. lg3 03:33 Initial lab(s) drawn, by ED staff, sent to lab. EKG done, by ED staff, reviewed by afshan Pickens MD. Patient maintains SpO2 saturation greater than 95% on room air. 03:56 XRAY Chest (1 view) In Process Unspecified. EDMS 04:07 Aurelia Ayala, RN is Primary Nurse. lg3 05:31 CT Aorta for Dissection In Process Unspecified. EDMS 07:29 Provided Education on: discharge instructions . ap3 07:29 No provider procedures requiring assistance completed. IV discontinued, intact, ap3 bleeding controlled, No redness/swelling at site. Pressure dressing applied. Administered Medications: No medications were administered Medication: 03:33 VIS not applicable for this client. lg3 Outcome: 07:19 Discharge ordered by . rn 07:29 Discharged to home ambulatory, with family, ap3 07:29 Condition: good 07:29 Discharge instructions given to patient, family, Instructed on discharge instructions, follow up and referral plans. Demonstrated understanding of instructions, follow-up care, 07:29 Patient left the ED. ap3 Signatures: Dispatcher [employer] EDMS Will Pickens MD MD rn Prokisch, Amanda RN RN ap3 Aurelia Ayala RN RN lg3 Lisa Gomez rv1 Sarah Mcdonald cp4
--- NOTE | 2024-07-15 07:19 | EDPHYS ---
Physician Documentation [facility] Name: Garcia Matta Age: 59 yrs Sex: Male : 1965 Arrival Date: 07/15/2024 Time: 03:09 Bed DX2 Private MD: ED Physician Will Pickens HPI: 07/15 03:55 This 59 yrs old Male presents to ER via EMS with complaints of syncope. rn 03:55 The patient has experienced syncope. Onset: The symptoms/episode began/occurred just rn prior to arrival. Duration: This was a single episode. Associated injury: The patient did not suffer any apparent associated injury. Current symptoms: Currently, the patient is not experiencing any symptoms. The patient has experienced similar episodes in the past. Patient reports syncopal episode while walking on his driveway. Reports landed on knees but does not feel anything broken. Patient reports recurrent syncopal episodes that are getting worse and more frequent. Reports preceding dizziness and sometimes chest pain then syncopal episode, then feels better. No focal neurological deficits. Patient reports history of CAD, aortic aneurysm, and heart murmur.. Historical: - Allergies: 03:20 No Known Allergies; cp4 - PMHx: 03:20 AAA (Pneumothorax); CAD; COPD; GERD; Hyperlipidemia; Heart Murmur; Hypertension; cp4 Myocardial infarction; Pneumothorax; - PSHx: 03:20 stents x 3; cp4 - Immunization history:: Adult Immunizations up to date. - Infectious Disease History:: Denies. - Social history:: Smoking status: Patient reports the use of cigarette tobacco products, smokes one-half pack cigarettes per day. - Family history:: not pertinent. - Hospitalizations: : No recent hospitalization is reported. ROS: 03:55 Constitutional: Negative for fever, chills, and weight loss, Cardiovascular: Positive rn for chest pain Respiratory: Negative for shortness of breath, cough, wheezing, and pleuritic chest pain, Abdomen/GI: Negative for abdominal pain, nausea, vomiting, diarrhea, and constipation, Back: Negative for injury and pain, MS/Extremity: Negative for injury and deformity, Skin: Negative for injury, rash, and discoloration, Neuro: Negative for headache, weakness, numbness, tingling, and seizure, Exam: 03:55 Constitutional: This is a well developed, well nourished patient who is awake, alert, rn and in no acute distress. Head/Face: Normocephalic, atraumatic. ENT: Dry mucous membranes Cardiovascular: Regular rate and rhythm. Systolic ejection murmur noted Respiratory: No increased work of breathing, no retractions or nasal flaring. Abdomen/GI: Soft, non-tender MS/ Extremity: Pulses equal, no cyanosis. Neurovascular intact. Full, normal range of motion. Equal circumference. Neuro: Awake and alert, GCS 15, oriented to person, place, time, and situation. Cranial nerves II-XII grossly intact. Motor strength 5/5 in all extremities. Sensory grossly intact. 04:33 ECG was reviewed by the Attending Physician. rn Vital Signs: 03:18 BP 140 / 90; Pulse 90; Resp 18; Temp 98.1; Pulse Ox 100% ; Weight 85.73 kg; Height 6 cp4 ft. 1 in. ; Pain 0/10; 04:59 BP 146 / 95; Pulse 82; Resp 18; Pulse Ox 96% on R/A; rv1 03:18 Body Mass Index 24.94 (85.73 kg, 185.42 cm) cp4 03:18 Pain Scale: Adult cp4 MDM: 03:17 Medical Screening Exam initiated rn 07:15 Differential Diagnosis: aortic aneurysm, cardiac arrhythmia, emotional response, rn vasovagal episode, aortic stenosis. Data reviewed: vital signs, nurses notes, lab test result(s), EKG, radiologic studies, CT scan, plain films, and as a result, I will admit patient. Consideration of Admission/Observation Escalation of care including admission/observation considered. Counseling: I had a detailed discussion with the patient and/or guardian regarding the historical points, exam findings, and any diagnostic results supporting the discharge/admit diagnosis, lab results, radiology results, the need for further work-up and treatment in the hospital, the need to transfer to another facility, [facility] does not immediately have the required specialist. Refusal of service: The patient/guardian displays adequate decision making capability and despite a detailed discussion of alternatives, benefits, risks, and consequences refuses: Admission to the hospital for further work-up and treatment. ED course: No acute findings and workup including CT. Troponin negative. Recommend transfer back to [facility] where he is had his workup given high likelihood of aortic stenosis given systolic murmur and exertional syncope. Patient states he does not want to be transferred, plans on going to [facility] when it is more convenient in the next couple of days. Understands risks of leaving without further evaluation and admission. Family or significant other is here and states he is stubborn and she is always telling him to go to [facility] and does not listen. Will discharge home per his wishes with return precautions.. 07/15 03:19 Order name: Basic Metabolic Panel; Complete Time: 04:41 rn 07/15 03:19 Order name: CBC with Diff; Complete Time: 04:41 rn 07/15 03:19 Order name: LFT's; Complete Time: 04:41 rn 07/15 03:19 Order name: NT PRO-BNP; Complete Time: 04:41 rn 07/15 03:19 Order name: PT-INR; Complete Time: 04:24 rn 07/15 03:19 Order name: Troponin HS; Complete Time: 04:41 rn 07/15 03:19 Order name: XRAY Chest (1 view); Complete Time: 07:10 rn 07/15 04:24 Order name: CT Aorta for Dissection; Complete Time: 07:10 rn 07/15 03:19 Order name: EKG; Complete Time: 03:19 rn 07/15 03:19 Order name: EKG - Nurse/Tech; Complete Time: 03:22 rn 07/15 03:19 Order name: IV Saline Lock; Complete Time: 03:22 rn 07/15 03:19 Order name: Labs collected and sent; Complete Time: 03:28 rn 07/15 03:19 Order name: O2 Per Protocol; Complete Time: 03:22 rn 07/15 03:19 Order name: O2 Sat Monitoring; Complete Time: 03:22 rn EC:33 Rate is 91 beats/min. Rhythm is regular. QRS [place] is Normal. RI interval is normal. QRS rn interval is normal. QT interval is normal. No Q waves. T waves are Normal. No ST changes noted. Clinical impression: Normal ECG. Interpreted by me. Reviewed by me. Administered Medications: No medications were administered Disposition Summary: 07/15/24 07:19 Discharge Ordered Notes: Location: Home rn Problem: an ongoing problem rn Symptoms: have improved rn Condition: Stable rn Diagnosis - Syncope rn Followup: rn - With: Private Physician - When: As needed - Reason: Recheck today's complaints, Re-evaluation by your physician Discharge Instructions: - Discharge Summary Sheet rn - Syncope rn - Aortic Valve Stenosis rn Forms: - Medication Reconciliation Form rn - Antibiotic automotive internet sales consultant - Prescription Opioid Use rn - Patient Portal Instructions rn - Leadership Thank You Letter rn Signatures: Dispatcher [employer] EDWill Weiss MD MD rn Potter, Christina cp4 Corrections: (The following items were deleted from the chart) 03:57 03:55 Constitutional: This is a well developed, well nourished patient who is awake, rn alert, and in no acute distress. Head/Face: Normocephalic, atraumatic. ENT: Dry mucous membranes Cardiovascular: Regular rate and rhythm. Systolic ejection murmur noted Respiratory: No increased work of breathing, no retractions or nasal flaring. Abdomen/GI: Soft, non-tender MS/ Extremity: Pulses equal, no cyanosis. Neurovascular intact. Full, normal range of motion. Equal circumference. rn 04:25 04:25 Angio Aorta For Dissection+CT.RAD.BRZ ordered. EDMS EDMS
[2024-07-15 07:34] VITALS: TEMP 98.1
[2024-07-15 07:35] VITALS: BP 146/95; O2SAT 96
--- NOTE | 2024-07-15 11:24 | EKG ---
Test Date: 2024-07-15 Test Time: 03:18:46 Wreath Machine Operator: RV MEASUREMENT RESULTS: Intervals: Rate: 91 PA: 142 QRSD: 100 QT: 384 QTc: 472 [place]: P: 65 PA: 142 QRS: 40 T: 95 INTERPRETIVE STATEMENTS: Normal sinus rhythm Normal ECG Compared to ECG 06/07/2024 15:35:33 T-wave abnormality no longer present Possible ischemia no longer present Electronically Signed On 07-15-24 11:24:04 METAL TUBE CUTTER by Jd Almanzar
== END 2024-07-15 07:29 | disposition home or self-care (01) ==
LOC: ER 03:09
DX: R55 Syncope and collapse (principal); F17.210 Nicotine dependence, cigarettes, uncomplicated; Z95.818 Presence of other cardiac implants and grafts
CPT/HCPCS: 36415; 71045; 71275; 74175; 80048; 80076; 83880; 84484; 85025; 85610; 93005; 99284; Q9967

== ENCOUNTER 2024-08-16 23:47 | Emergency (ER) | payer OTHER, SELFPAY ==
[2024-08-17 00:30] LABS: Absolute Basophils 0.1 K/uL (0-0.5); Absolute Eosinophils 0.4 K/uL (0-0.5); Absolute Lymphocytes (CBC) 2.2 K/uL (0.7-4.9); Absolute Monocytes 1.1 K/uL (0.1-1.3); Absolute Neutrophil 5.4 K/uL (1.8-8.0); Basophils % 1.2 % (0-1.3); Eosinophils % 4.1 % (0-4.4); Hematocrit 41.3 % (39.6-49.0); Hemoglobin 14.4 g/dL (13.6-17.9); Lymphocytes % 23.8 % (15.3-44.8); MCH 32.3 pg (27.0-35.0); MCHC 34.9 g/dL (32.0-36.0); MCV 92.4 fL (80-100); MPV 9.8 fL (7.6-11.3); Neutrophils % 58.9 % (41.7-73.7); Nucleated Red Blood Cells % 0.1 % (0-0); Platelets 166 thou/uL (152-406); RBC Red Blood Cell Count 4.47 M/uL (4.33-5.43); Red Cell Distribution Width 12.8 % (12.1-15.2)
[2024-08-17 00:41] LABS: ALT/SGPT 24 U/L (16-61); Albumin 3.2 g/dL (3.4-5.0); Albumin/Globulin Ratio 0.9 (1.1-1.8); Alkaline Phosphatase 88 U/L (45-117); Anion Gap 10.7 mEq/L (5.0-15.0); BUN Blood Urea Nitrogen 17 mg/dL (7-18); Bicarbonate 24 mEq/L (21-32); Bilirubin Total 0.2 mg/dL (0.2-1.0); Globulin 3.5 g/dL (2.3-3.5); Glomerular Filtration Rate 99 ml/min (=/>90); Glucose Level 165 mg/dL (74-106); Protein, Total 6.7 g/dL (6.4-8.2); Sodium Level 140 mEq/L (136-145); Troponin High Sensitivity 19.6 pg/mL (<58.9)
[2024-08-17 00:42] LABS: AST/SGOT 17 U/L (15-37); Bilirubin Direct < 0.2 mg/dL (0-0.2); Potassium 3.7 mEq/L (3.5-5.1)
--- NOTE | 2024-08-17 02:51 | ER ---
Nurse's Notes [facility] Name[facility] Garcia [facility] Age: 59 yrs Sex: Male : 1965 Arrival Date: 08/16/2024 Time: 23:47 Bed 24 Private MD: Diagnosis: Chest pain, unspecified Presentation: 08/17 00:01 Chief complaint: EMS states: Pt reports Chest pain that started at roughly 2215. He jb4 took one of his own nitro's. Reports pain worsens with inhalation and upon palpation. Coronavirus screen: At this time, the client does not indicate any symptoms associated with coronavirus-19. Ebola Screen: No symptoms or risks identified at this time. Initial Sepsis Screen: Does the patient meet any 2 criteria? No. Patient's initial sepsis screen is negative. Does the patient have a suspected source of infection? No. Patient's initial sepsis screen is negative. Risk Assessment: Do you want to hurt yourself or someone else? Patient reports no desire to harm self or others. Onset of symptoms was August 17, 2024. Transition of care: patient was not received from another setting of care. 00:01 Method Of Arrival: EMS: [facility] jb4 00:01 Acuity: [place] 2 jb4 Historical: - Allergies: 00:04 No Known Allergies; jb4 - PMHx: 00:04 Myocardial infarction; Hyperlipidemia; Pneumothorax; Heart Murmur; GERD; Hypertension; jb4 COPD; AAA (Pneumothorax); CAD; "aneurysm on heart" (stents x 3); - PSHx: 00:04 stents x 3; jb4 - Immunization history:: Adult Immunizations up to date. - Infectious Disease History:: Denies. - Social history:: Smoking status: Patient reports the use of cigarette tobacco products, smokes one-half pack cigarettes per day. - Family history:: not pertinent. Screenin:05 [facility] ED Fall Risk Assessment (Adult) History of falling in the last 3 months, jb4 including since admission Yes- single mechanical fall (1 pt) Confusion or Disorientation No (0 pts) Intoxicated or Sedated No (0 pts) Impaired Gait No (0 pts) Mobility Assist Device Used No (0 pt) Altered Elimination No (0 pt) Score/Fall Risk Level 0 - 2 = Low Risk Oriented to surroundings, Maintained a safe environment. Abuse screen: Denies threats or abuse. Nutritional screening: No deficits noted. Tuberculosis screening: No symptoms or risk factors identified. Assessment: 00:05 General: Appears in no apparent distress. comfortable, Behavior is calm, cooperative, jb4 appropriate for age. Pain: Complains of pain in chest Pain does not radiate. Pain currently is 3 out of 10 on a pain scale. Quality of pain is described as burning, sharp, Pain began 2 hours ago. Neuro: Level of Consciousness is awake, alert, obeys commands, Oriented to person, place, time, situation. Cardiovascular: Patient's skin is warm and dry. Rhythm is sinus rhythm. Respiratory: Airway is patent Respiratory effort is even, unlabored, Respiratory pattern is regular, symmetrical. Derm: Skin is intact, Skin is pink, warm \\T\\ dry. Musculoskeletal: Circulation, motion, and sensation intact. Range of motion: intact in all extremities. 01:00 Reassessment: Patient appears in no apparent distress at this time. Patient and/or jb4 family updated on plan of care and expected duration. Pain level reassessed. Patient is alert, oriented x 3, equal unlabored respirations, skin warm/dry/pink. 01:55 Reassessment: Patient appears in no apparent distress at this time. Patient and/or jb4 family updated on plan of care and expected duration. Pain level reassessed. Patient is alert, oriented x 3, equal unlabored respirations, skin warm/dry/pink. Patient states feeling better. 02:57 Reassessment: Patient appears in no apparent distress at this time. Patient and/or jb4 family updated on plan of care and expected duration. Pain level reassessed. Patient is alert, oriented x 3, equal unlabored respirations, skin warm/dry/pink. Vital Signs: 00:01 BP 138 / 99; Pulse 90; Resp 16; Temp 98.3(O); Pulse Ox 100% on R/A; Weight 86.18 kg jb4 (R); Height 6 ft. 1 in. (R); Pain 310; 01:00 BP 142 / 95; Pulse 85; Resp 16; Pulse Ox 96% on R/A; jb4 02:00 BP 146 / 101; Pulse 77; Resp 16; Pulse Ox 95% on R/A; jb4 02:57 BP 134 / 98; Pulse 81; Resp 16; Pulse Ox 96% on R/A; jb4 00:01 Body Mass Index 25.07 (86.18 kg, 185.42 cm) jb4 00:01 Pain Scale: Adult jb4 ED Course: 08/16 23:49 Patient arrived in ED. rv1 23:[address] MD is Attending Physician. rt 23:50 Landon Menard RN is Primary Nurse. jb4 08/17 00:01 Inserted saline lock: 18 gauge in right forearm, using aseptic technique. Blood jb4 collected. 00:04 Triage completed. jb4 00:04 Arm band placed on right wrist. jb4 00:05 No provider procedures requiring assistance completed. jb4 00:05 Patient has correct armband on for positive identification. Bed in low position. Call jb4 light in reach. Side rails up X 1. Provided Education on: plan of care. Client placed on continuous cardiac and pulse oximetry monitoring. NIBP monitoring applied. pvc monitor on. Pulse ox on. 00:07 Basic Metabolic Panel Sent. jb4 00:07 CBC with Diff Sent. jb4 00:07 LFT's Sent. jb4 00:07 Troponin HS Sent. jb4 00:33 XRAY Chest (1 view) In Process Unspecified. EDMS 01:55 Troponin High Sensitivity Sent. jb4 02:57 IV discontinued, intact, bleeding controlled, No redness/swelling at site. Pressure jb4 dressing applied. Administered Medications: No medications were administered Medication: 00:05 VIS not applicable for this client. jb4 Outcome: 02:50 Discharge ordered by . rt 02:57 Discharged to home ambulatory, with friend, jb4 02:57 Condition: stable 02:57 Discharge instructions given to patient, Instructed on discharge instructions, follow up and referral plans. Demonstrated understanding of instructions, follow-up care, 02:58 Patient left the ED. jb4 Signatures: Dispatcher [employer] EDMS Landon Menard RN RN jb4 Chago Lane MD MD rt Lisa Gomez rv1 Corrections: (The following items were deleted from the chart) 00:05 00:04 PMHx: "aneursym on heart"; jb4 jb4
--- NOTE | 2024-08-17 02:51 | EDPHYS ---
Physician Documentation [facility] Name: Garcia Matta Age: 59 yrs Sex: Male : 1965 Arrival Date: 08/16/2024 Time: 23:47 Bed 24 Private MD: ED Physician Chago Lane HPI: 08/17 00:38 This 59 yrs old Male presents to ER via EMS with complaints of chest pain. rt 00:38 Patient presents to the ED with chest pain starting at about 9, was nonexertional in rt nature. Patient took nitro which significantly proved his symptoms. Reported a lightheadedness associated with this. Denies syncopal event. Denies other acute complaints at this time, symptoms are moderate in severity, no other aggravating or alleviating factors.. Historical: - Allergies: 00:04 No Known Allergies; jb4 - PMHx: 00:04 Myocardial infarction; Hyperlipidemia; Pneumothorax; Heart Murmur; GERD; Hypertension; jb4 COPD; AAA (Pneumothorax); CAD; "aneurysm on heart" (stents x 3); - PSHx: 00:04 stents x 3; jb4 - Immunization history:: Adult Immunizations up to date. - Infectious Disease History:: Denies. - Social history:: Smoking status: Patient reports the use of cigarette tobacco products, smokes one-half pack cigarettes per day. - Family history:: not pertinent. ROS: 00:38 Constitutional: Negative for fever, chills, and weight loss, Respiratory: Negative for rt shortness of breath, cough, wheezing, and pleuritic chest pain, Abdomen/GI: Negative for abdominal pain, nausea, vomiting, diarrhea, and constipation, MS/Extremity: Negative for injury and deformity, Skin: Negative for injury, rash, and discoloration, 00:38 Cardiovascular: Positive for chest pain, Negative for edema, 00:38 Neuro: Positive for near syncope, Negative for loss of consciousness, Exam: 00:38 Constitutional: This is a well developed, well nourished patient who is awake, alert, rt and in no acute distress. Head/Face: Normocephalic, atraumatic. Chest/axilla: Normal chest wall appearance and motion. Nontender with no deformity. No lesions are appreciated. Respiratory: Lungs have equal breath sounds bilaterally, clear to auscultation and percussion. No rales, rhonchi or wheezes noted. No increased work of breathing, no retractions or nasal flaring. Abdomen/GI: Soft, non-tender, with normal bowel sounds. No distension or tympany. No guarding or rebound. No evidence of tenderness throughout. Skin: Warm, dry with normal turgor. Normal color with no rashes, no lesions, and no evidence of cellulitis. MS/ Extremity: Pulses equal, no cyanosis. Neurovascular intact. Full, normal range of motion. Neuro: Awake and alert, GCS 15, oriented to person, place, time, and situation. Cranial nerves II-XII grossly intact. Motor strength 5/5 in all extremities. Sensory grossly intact. Cerebellar exam normal. Normal gait. 00:38 Cardiovascular: Regular rate and rhythm, holosystolic murmur heard, 00:38 ECG was reviewed by the Attending Physician. Vital Signs: 00:01 BP 138 / 99; Pulse 90; Resp 16; Temp 98.3(O); Pulse Ox 100% on R/A; Weight 86.18 kg jb4 (R); Height 6 ft. 1 in. (R); Pain 08/16; 01:00 BP 142 / 95; Pulse 85; Resp 16; Pulse Ox 96% on R/A; jb4 02:00 BP 146 / 101; Pulse 77; Resp 16; Pulse Ox 95% on R/A; jb4 02:57 BP 134 / 98; Pulse 81; Resp 16; Pulse Ox 96% on R/A; jb4 00:01 Body Mass Index 25.07 (86.18 kg, 185.42 cm) jb4 00:01 Pain Scale: Adult jb4 MDM: 08/16 23:50 Medical Screening Exam initiated rt 08/17 02:59 Differential Diagnosis CAD, aortic stenosis. Data reviewed: vital signs, nurses notes, rt lab test result(s), EKG, radiologic studies. Consideration of Admission/Observation Escalation of care including admission/observation considered. Patient with known aortic stenosis and CAD requiring CABG. I discussed transfer with the patient, he states that he strongly does not wish to be transferred secondary to having an informed that he must take care of. I believe that he requires cardiothoracic surgery consultation at [facility] due to having pain, near syncopal events with above medical conditions. Patient understands risks of leaving and has decision-making capacity, is good understanding of his medical condition.. Independent interpretation of the following test(s) in the Emergency Department X-Ray: My interpretation is No infiltrate seen on interpretation of x-ray images. Test considered but Not performed: CT: Patient with recent CT angiogram that showed a fusiform abdominal aortic aneurysm at 4 cm, do not believe that repeat imaging is indicated this soon.. Care significantly affected by the following chronic conditions: CAD, aortic stenosis. Counseling: I had a detailed discussion with the patient and/or guardian regarding the historical points, exam findings, and any diagnostic results supporting the discharge/admit diagnosis, lab results, radiology results, the need for outpatient follow up. Response to treatment: the patient's symptoms have markedly improved after treatment. 08/17 00:03 Order name: Basic Metabolic Panel; Complete Time: 00:43 rt 08/17 00:03 Order name: CBC with Diff; Complete Time: 00:43 rt 08/17 00:03 Order name: LFT's; Complete Time: 00:43 rt 08/17 00:03 Order name: Troponin HS; Complete Time: 00:43 rt 08/17 01:41 Order name: Troponin High Sensitivity; Complete Time: 02:45 rt 08/17 00:03 Order name: XRAY Chest (1 view) rt 08/17 00:03 Order name: EKG; Complete Time: 00:03 rt 08/17 00:03 Order name: Cardiac monitoring; Complete Time: 00:07 rt 08/17 00:03 Order name: EKG - Nurse/Tech; Complete Time: 00:07 rt 08/17 00:03 Order name: IV Saline Lock; Complete Time: 00:07 rt 08/17 00:03 Order name: Labs collected and sent; Complete Time: 00:07 rt 08/17 00:03 Order name: O2 Per Protocol; Complete Time: 00:07 rt 08/17 00:03 Order name: O2 Sat Monitoring; Complete Time: 00:07 rt EC:38 Rate is 90 beats/min. Rhythm is regular, Normal Sinus Rhythm with No ectopy. QRS [place] rt is Normal. [place] interval is normal. QRS interval is normal. QT interval is normal. No Q waves. No ST changes noted. Interpreted by me. Administered Medications: No medications were administered Disposition Summary: 08/17/24 02:50 Discharge Ordered Notes: Location: Home rt Problem: new rt Symptoms: are unchanged rt Condition: Stable rt Diagnosis - Chest pain, unspecified rt Followup: rt - With: Private Physician - When: 2 - 3 days - Reason: Discharge Instructions: - Discharge Summary Sheet rt - Nonspecific Chest Pain, Adult rt Forms: - Medication Reconciliation Form rt - Antibiotic Education rt - Prescription Opioid Use rt - Patient Portal Instructions rt - Leadership Thank You Letter rt Signatures: Dispatcher [employer] EDRI Landon Menard RN RN jb4 Chago Lane MD MD rt Corrections: (The following items were deleted from the chart) 00:03 00:03 BASIC METABOLIC PANEL+C.LAB.BRZ ordered. EDMS EDMS 00:03 00:03 CBC+H.LAB.BRZ ordered. EDMS EDMS 00:03 00:03 HEPATIC FUNCTION+C.LAB.BRZ ordered. EDMS EDMS 00:03 00:03 Troponin High Sensitivity+C.LAB.BRZ ordered. EDMS EDMS 00:05 00:04 PMHx: "aneursym on heart"; donna jb4
[2024-08-17 03:30] VITALS: TEMP 98.3
[2024-08-17 03:33] VITALS: BP 134/98; O2SAT 96
--- NOTE | 2024-08-17 05:38 | RAD REPORT ---
PROCEDURE: XR Chest, 1 View CLINICAL INDICATION: The patient is 59 years old and is Male; Chest pain. TECHNIQUE: Frontal view of the chest. COMPARISON: None. FINDINGS: LUNGS: No discrete focal consolidation. PLEURAL SPACE: No appreciable pleural effusion or pneumothorax. MEDIASTINUM: Unremarkable cardiomediastinal contour. BONES/JOINTS: No acute osseous abnormality. IMPRESSION: No acute cardiopulmonary abnormality. Electronically signed by: Rambo Mccartney MD 08/17/2024 01:28 AM CDT RP Due to temporary technical issues with the PACS/Internet [employer] reporting system, reports are being marlene d by the in-house radiologist without review as a courtesy to ensure prompt reporting the interpreting radiologist is fully responsible for the content of the report. Transcribed Date/Time: 08/17/2024 5:38 AM
--- NOTE | 2024-08-17 10:57 | EKG ---
Test Date: 2024-08-16 Test Time: 23:53:19 Personnel Associate: EDUARDO MEASUREMENT RESULTS: Intervals: Rate: 90 WY: 160 QRSD: 94 QT: 372 QTc: 455 [place]: P: 69 WY: 160 QRS: 42 T: 106 INTERPRETIVE STATEMENTS: Normal sinus rhythm T wave abnormality, consider lateral ischemia Abnormal ECG Compared to ECG 07/15/2024 03:18:46 T-wave abnormality now present Possible ischemia now present Electronically Signed On 08-17-24 10:55:54 CDT by Jd Almanzar
== END 2024-08-17 02:58 | disposition home or self-care (01) ==
LOC: ER 23:47
DX: R07.9 Chest pain, unspecified (principal); R55 Syncope and collapse
CPT/HCPCS: 36415; 71045; 80048; 80076; 84484; 85025; 93005; 99284

== ENCOUNTER 2024-09-29 19:24 | Emergency (ER) | payer SELFPAY ==
--- NOTE | 2024-09-29 19:49 | RAD REPORT ---
EXAM: Chest Single View HISTORY: 59 years Male CHEST PAIN COMPARISON: 08/17/2024 FINDINGS: LUNGS/PLEURA: The lungs are clear. No pleural effusions or pneumothorax. No pulmonary edema. CARDIAC/MEDIASTINUM: The cardiac silhouette is within normal limits. UPPER ABDOMEN: No significant abnormality. BONES: No acute abnormality. LINES/TUBES/OTHER: N/A IMPRESSION: No evidence of acute cardiopulmonary disease. No significant change from prior.
[2024-09-29 19:51] LABS: PT Prothrombin Time 12.4 SECONDS (10-13.0); Protime INR 1.09
[2024-09-29 20:06] LABS: ALT/SGPT 19 U/L (16-61); AST/SGOT 12 U/L (15-37); Albumin 3.8 g/dL (3.4-5.0); Alkaline Phosphatase 83 U/L (45-117); Anion Gap 6.5 mEq/L (5.0-15.0); BUN Blood Urea Nitrogen 11 mg/dL (7-18); Bicarbonate 26 mEq/L (21-32); Bilirubin Total 0.6 mg/dL (0.2-1.0); Globulin 3.8 g/dL (2.3-3.5); Glomerular Filtration Rate 103 ml/min (=/>90); Glucose Level 92 mg/dL (74-106); NT PRO-BNP 296 pg/mL (<125); Potassium 3.5 mEq/L (3.5-5.1); Protein, Total 7.6 g/dL (6.4-8.2); Sodium Level 138 mEq/L (136-145); Troponin High Sensitivity 76.7 pg/mL (<58.9)
[2024-09-29 20:07] LABS: Bilirubin Direct < 0.2 mg/dL (0-0.2); Bilirubin Indirect, Calculated 0.4 mg/dL (0.2-0.8)
[2024-09-29 20:09] LABS: Magnesium 1.8 mg/dL (1.6-2.4)
[2024-09-29 20:20] LABS: Absolute Basophils 0.1 K/uL (0-0.5); Absolute Eosinophils 0.3 K/uL (0-0.5); Absolute Lymphocytes (CBC) 1.9 K/uL (0.7-4.9); Absolute Monocytes 1.2 K/uL (0.1-1.3); Absolute Neutrophil 5.9 K/uL (1.8-8.0); Basophils % 0.7 % (0-1.3); Eosinophils % 2.7 % (0-4.4); Hematocrit 45.1 % (39.6-49.0); Hemoglobin 15.5 g/dL (13.6-17.9); Lymphocytes % 20.6 % (15.3-44.8); MCH 30.7 pg (27.0-35.0); MCHC 34.4 g/dL (32.0-36.0); MCV 89.4 fL (80-100); MPV 9.5 fL (7.6-11.3); Monocytes % 12.8 % (3.3-12.3); Neutrophils % 63.2 % (41.7-73.7); Nucleated Red Blood Cells % 0.1 % (0-0); Platelets 170 thou/uL (152-406); RBC Red Blood Cell Count 5.05 M/uL (4.33-5.43)
--- NOTE | 2024-09-29 21:54 | RAD REPORT ---
EXAM: Angio Aorta For Dissection CLINICAL INDICATION: Male, 59 years HTN, known aneurysm, chest pain TECHNIQUE: CTA of the aorta was obtained including the chest, abdomen and pelvis, with IV contrast, a s per department protocol. Axial, sagittal and coronal reconstructions were obtained. Post-processing was applied at the acquisition scanner with concurrent physician supervision which in cludes 3D reconstructions, MIPs, volume rendered images and/or shaded surface rendering. One or more of the following dose reduction techniques were used: Automated exposure control, adjustment of the mA and/or kV according to the patient size, and/or iterative reconstruction. Unless otherwise specified, incidental findings do not require dedicated imaging follow-up. [id number]. COMPARISON: 07/15/2024 FINDINGS: ---THORAX--- LOWER NECK AND CHEST WALL: Unchanged thyroid nodules. LUNGS AND AIRWAYS: Centrilobular and paraseptal emphysema.No dominant or clearly suspicious nodule id entified. PLEURA: No pleural effusion. No pneumothorax. MEDIASTINUM AND LYMPH NODES: No mediastinal mass or fluid collection. Normal size mediastinal, hilar, and axillary lymph nodes. Diffuse esophageal wall thickening. THORACIC AORTA: No thoracic aortic aneurysm. PULMONARY ARTERIES: Caliber is within normal limits. Unable to evaluate for pulmonary emboli due to e ither protocol or lack of contrast. HEART: Normal heart size. Moderate coronary artery calcifications.No significant pericardial effusion . Aortic valve and mitral annular calcifications. Remote myocardial infarcts. ---ABDOMEN/PELVIS--- UPPER GI: No significant abnormality. LIVER: Hepatic steatosis. Benign appearing and/or stable lesions are identified. No suspicious mass. GALLBLADDER/BILE DUCTS: No biliary ductal dilatation.? PANCREAS: No mass, ductal dilation, or danny-pancreatic fluid. SPLEEN: Unremarkable. ADRENALS: Unchanged small adrenal nodules are likely benign. KIDNEYS AND URETERS: No hydronephrosis.Low density and/or too small to characterize renal lesions whi ch are statistically benign.No renal calculi.No ureteral calculi. ABDOMINAL AORTA AND OTHER VESSELS: Unchanged infrarenal abdominal aortic aneurysm measuring 4.4 cm. N o evidence of rupture.For management of fusiform aneurysmal abdominal aortas: Recommend follow-up every 12 months and recommend vascular consultation or continued care with a vascular specialist. PERITONEUM: No abnormal free fluid. No free air. LYMPH NODES: No pathologic lymphadenopathy. ABDOMINAL WALL: Fat containing inguinal hernias. SMALL BOWEL/COLON: Small bowel has normal course and caliber. No colonic wall thickening or pericolon ic inflammatory changes.Normal appendix. Mild diverticulosis without diverticulitis. URINARY BLADDER: Underdistended but grossly unremarkable. REPRODUCTIVE ORGANS: No pathologic process. ---COMBINED--- MUSCULOSKELETAL: No acute or suspicious osseous abnormality. ADDITIONAL FINDINGS: None. IMPRESSION: No acute findings within the chest, abdomen or pelvis. Unchanged infrarenal abdominal aortic aneurysm measuring 4.4 cm without evidence of rupture. No dissection identified.
--- NOTE | 2024-09-29 22:28 | EDPHYS ---
Physician Documentation [facility] Name: Garcia Matta Age: 59 yrs Sex: Male : 1965 Arrival Date: 09/29/2024 Time: 19:24 Bed 4 Private MD: ED Physician Will Pickens HPI: 09/29 19:31 This 59 yrs old Male presents to ER via EMS with complaints of Chest Pain. sp3 19:31 59-year-old male with history of prior AAA with recent CT measuring aorta at 4.8 cm, sp3 CAD, COPD, hyperlipidemia, hypertension now presents to the ED for recurrent chest pain. Patient had multiple episodes of this in the past. He states that he feels like he "may be dehydrated". He has not been on any medications for 3 months. He does not see a doctor regularly. He denies any fever, headache, neck pain, shortness of breath, abdominal pain, vomiting, diarrhea, syncope, near syncope or any other signs or symptoms on ROS at this time.. Historical: - PMHx: 19:27 AAA (Pneumothorax); CAD; COPD; GERD; Heart Murmur; Hyperlipidemia; Hypertension; al5 Myocardial infarction; Pneumothorax; - PSHx: 19:27 stents x 3; al5 - Immunization history:: Adult Immunizations up to date. - Infectious Disease History:: Denies. - Social history:: Smoking status: Patient reports the use of cigarette tobacco products, smokes one-half pack cigarettes per day, Patient/guardian denies using alcohol, street drugs. ROS: 19:32 Constitutional: Negative for fever, chills, and weight loss, Eyes: Negative for injury, sp3 pain, redness, and discharge, Neck: Negative for injury, pain, and swelling, Respiratory: Negative for shortness of breath, cough, wheezing, and pleuritic chest pain, Abdomen/GI: Negative for abdominal pain, nausea, vomiting, diarrhea, and constipation, Back: Negative for injury and pain, MS/Extremity: Negative for injury and deformity, Skin: Negative for injury, rash, and discoloration, Neuro: Negative for headache, weakness, numbness, tingling, and seizure, Psych: Negative for depression, anxiety, suicide ideation, homicidal ideation, and hallucinations, Allergy/Immunology: Negative for hives, rash, and allergies, Endocrine: Negative for neck swelling, polydipsia, polyuria, polyphagia, and marked weight changes, Hematologic/Lymphatic: Negative for swollen nodes, abnormal bleeding, and unusual bruising, 19:32 All other systems are negative, Exam: 19:33 Constitutional: This is a well developed, well nourished patient who is awake, alert, sp3 and in no acute distress. Head/Face: Normocephalic, atraumatic. Eyes: Pupils equal round and reactive to light, extra-ocular motions intact. Lids and lashes normal. Conjunctiva and sclera are non-icteric and not injected. Cornea within normal limits. Periorbital areas with no swelling, redness, or edema. Neck: Trachea midline, no thyromegaly or masses palpated, and no cervical lymphadenopathy. Supple, full range of motion without nuchal rigidity, or vertebral point tenderness. No Meningismus. Chest/axilla: Normal chest wall appearance and motion. Nontender with no deformity. No lesions are appreciated. Cardiovascular: Regular rate and rhythm with a normal S1 and S2. No gallops, murmurs, or rubs. Normal PMI, no JVD. No pulse deficits. Respiratory: Lungs have equal breath sounds bilaterally, clear to auscultation and percussion. No rales, rhonchi or wheezes noted. No increased work of breathing, no retractions or nasal flaring. Abdomen/GI: Soft, non-tender, with normal bowel sounds. No distension or tympany. No guarding or rebound. No evidence of tenderness throughout. Back: No spinal tenderness. No costovertebral tenderness. Full range of motion. Skin: Warm, dry with normal turgor. Normal color with no rashes, no lesions, and no evidence of cellulitis. MS/ Extremity: Pulses equal, no cyanosis. Neurovascular intact. Full, normal range of motion. Neuro: Awake and alert, GCS 15, oriented to person, place, time, and situation. Cranial nerves II-XII grossly intact. Motor strength 5/5 in all extremities. Sensory grossly intact. Cerebellar exam normal. Normal gait. Psych: Awake, alert, with orientation to person, place and time. Behavior, mood, and affect are within normal limits. 19:33 ECG was reviewed by the Attending Physician. EKG demonstrates sinus tachycardia at 100 bpm with normal intervals, normal QRS, normal axis and nonspecific ST/T changes without evidence of acute ischemia. Vital Signs: 19:26 BP 132 / 103; Pulse 109; Resp 18; Temp 98.1; Pulse Ox 97% on R/A; Weight 86.18 kg; al5 Height 6 ft. 1 in. ; 20:00 BP 133 / 104; Pulse 99; Resp 20; Pulse Ox 97% on R/A; dd2 20:30 BP 141 / 98; Pulse 95; Resp 18; Pulse Ox 96% on R/A; dd2 21:00 BP 124 / 93; Pulse 91; Resp 18; Pulse Ox 96% on R/A; dd2 21:35 BP 126 / 93; Pulse 86; Resp 17; Pulse Ox 97% on R/A; dd2 22:00 BP 134 / 97; Pulse 84; Resp 18; Pulse Ox 97% on R/A; dd2 22:30 BP 133 / 95; Pulse 92; Resp 18; Pulse Ox 98% on R/A; dd2 23:00 BP 116 / 89; Pulse 93; Resp 17; Pulse Ox 96% on R/A; dd2 23:15 Weight 84.82 kg; al5 23:30 BP 124 / 88; Pulse 96; Resp 17; Temp 98.3; Pulse Ox 95% on R/A; dd2 19:26 Body Mass Index 25.07 (84.82 kg, 185.42 cm) al5 MDM: 19:26 Medical Screening Exam initiated sp3 19:33 Data reviewed: vital signs, nurses notes, lab test result(s), EKG, radiologic studies. sp3 ED course: 59-year-old male with recurrent chest pain with multiple recent episodes in the past. Has had recent CT aortogram and demonstrates no recurrent pathology. Differential diagnosis includes chronic chest pain, musculoskeletal chest pain, GERD/reflux, and to a lesser degree acute coronary syndrome. Will obtain laboratory values, chest x-ray and EKG which has already been performed. 2 serial troponins are negative, patient will likely be eligible for discharge. Patient will be signed out to nighttime physician for final reevaluation and disposition and this care plan will be communicated with any modifications based on his reassessment.. 22:25 Differential diagnosis: acute myocardial infarction, acute pericarditis, anxiety, rn coronary artery disease pneumothorax, stable angina, thoracic aortic disection, unstable angina. HEART Score: History: Moderately Suspicious (1), ECG: Non specific repolarization disturbance / LBTB / PM (1), Age: > 45 and < 65 years (1), Risk Factors: > or = 3 Risk factors for atherosclerotic disease (2), Troponin: > 1 and < 3 x normal limit (1), Total Score = 6. The patient was given aspirin in the Emergency Department. Consideration of Admission/Observation Patient was admitted/placed on observation. Escalation of care including admission/observation considered. Counseling: I had a detailed discussion with the patient and/or guardian regarding the historical points, exam findings, and any diagnostic results supporting the discharge/admit diagnosis, lab results, radiology results, the need for further work-up and treatment in the hospital, the need to transfer to another facility. ED course: Patient with no active chest pain. Troponin elevated, CT aorta no acute changes. ECG shows T wave inversions lateral leads. Patient given aspirin and heparin. No Cytology Supervisor available here. Patient request transfer to [facility] as he has been evaluated there for CAD as well as his aortic aneurysm.. 09/29 19:26 Order name: Basic Metabolic Panel; Complete Time: 20:24 sp3 09/29 19:26 Order name: CBC with Diff; Complete Time: 20:24 sp3 09/29 19:26 Order name: LFT's; Complete Time: 20:24 sp3 09/29 19:26 Order name: Magnesium; Complete Time: 20:24 sp3 09/29 19:26 Order name: NT PRO-BNP; Complete Time: 20:24 sp3 09/29 19:26 Order name: PT-INR; Complete Time: 20:06 sp3 09/29 19:26 Order name: Troponin HS; Complete Time: 20:24 sp3 09/29 19:29 Order name: CXR XRAY; Complete Time: 19:52 sp3 09/29 20:25 Order name: CT Aorta for Dissection; Complete Time: 22:05 rn 09/29 19:26 Order name: EKG; Complete Time: 19:26 sp3 09/29 19:26 Order name: Cardiac monitoring; Complete Time: 19:38 sp3 09/29 19:26 Order name: EKG - Nurse/Tech; Complete Time: 19:38 sp3 09/29 19:26 Order name: IV Saline Lock; Complete Time: 19:38 sp3 09/29 19:26 Order name: Labs collected and sent; Complete Time: 19:38 sp3 09/29 19:26 Order name: O2 Per Protocol; Complete Time: 19:38 sp3 09/29 19:26 Order name: O2 Sat Monitoring; Complete Time: 19:38 sp3 Administered Medications: 23:26 Drug: Aspirin PO Chewable Tablet 324 mg PO once; 81 mg tablets x 4 Route: PO; al5 23:58 Follow up: Response: No adverse reaction al5 23:26 Drug: Heparin (NH-Bolus No thrombolytic) - HEParin IVP 60 units/kg IVP once; Max 5000 al5 units {Co-Signature: dd2 (FANNIE GREGG RN).} Route: IVP; Site: right forearm; 23:58 Follow up: Response: No adverse reaction al5 23:27 Drug: Heparin (NH Drip) 12 units/kg/hr - ([place] [address] units, D5W IV 500 ml) IV at al5 calculated rate Per protocol; Max initial rate 1000 units/hr {Co-Signature: dd2 (FANNIE GREGG RN).} Route: IV; Rate: calculated rate; Site: right forearm; 23:58 Follow up: Response: No adverse reaction; IV Status: Infusion continued upon transfer al5 Disposition Summary: 09/29/24 22:27 Transfer Ordered Notes: Transfer Location: [facility] rn Reason: Higher level of care rn Condition: Stable rn Problem: new rn Symptoms: have improved rn Accepting Physician: (09/30/24 01:06) al5 Diagnosis - Chest pain, unspecified rn Forms: - Medication Reconciliation Form rn - SBAR form rn Signatures: Dispatcher [employer] EDTX Will iPckens MD MD rn Patel, Setul, MD MD sp3 Laura Fuentes RN RN al5 FANNIE GREGG RN dd2 Corrections: (The following items were deleted from the chart) 19:28 19:27 PMHx: "aneurysm on heart" (stents x 3); al5 al5 19:30 19:27 Angio Aorta For Dissection+CT.RAD.BRZ ordered. [facility] EDTX 19:35 19:33 ECG was reviewed by the Attending Physician. EKG demonstrates sinus tachycardia sp3 at 100 bpm with normal intervals, normal QRS, normal axis and nonspecific ST/T changes without evidence of acute ischemia. No delta wave is seen on this EKG. sp3 23:40 19:35 Troponin High Sensitivity+C.LAB.JULIZ ordered. EDMS EDMS 09/30 01:06 09/29 22:27 Dr. hamilton al5
--- NOTE | 2024-09-29 22:28 | ER ---
Nurse's Notes [facility] Name: Garcia Matta Age: 59 yrs Sex: Male : 1965 Arrival Date: 09/29/2024 Time: 19:24 Bed 4 Private MD: Diagnosis: Chest pain, unspecified Presentation: 09/29 19:26 Chief complaint: Patient states: c/o chest pain intermittent x3 days. Coronavirus al5 screen: At this time, the client does not indicate any symptoms associated with coronavirus-19. Ebola Screen: No symptoms or risks identified at this time. Initial Sepsis Screen: Does the patient meet any 2 criteria? HR > 90 bpm. No. Patient's initial sepsis screen is negative. Does the patient have a suspected source of infection? No. Patient's initial sepsis screen is negative. Risk Assessment: Do you want to hurt yourself or someone else? Patient reports no desire to harm self or others. Onset of symptoms was September 26, 2024. 19:26 Method Of Arrival: EMS: [facility] al5 19:26 Acuity: CATARINA 2 al5 Triage Assessment: 19:28 General: Appears in no apparent distress. uncomfortable, Behavior is calm, cooperative. al5 Pain: Complains of pain in chest Pain currently is 4 out of 10 on a pain scale. EENT: No signs and/or symptoms were reported regarding the EENT system. Neuro: Level of Consciousness is awake, alert, obeys commands, Oriented to person, place, time, situation. Cardiovascular: Reports chest pain, Capillary refill < 3 seconds Patient's skin is warm and dry. Rhythm is sinus tachycardia Chest pain is described as mild. Respiratory: Airway is patent Respiratory effort is even, unlabored, Respiratory pattern is regular, symmetrical. GI: No signs and/or symptoms were reported involving the gastrointestinal system. GI: Abdomen is flat, non-distended. : No signs and/or symptoms were reported regarding the genitourinary system. Derm: Skin is intact, is healthy with good turgor, Skin is pink, warm \\T\\ dry. normal. Musculoskeletal: No signs and/or symptoms reported regarding the musculoskeletal system. Historical: - PMHx: 19:27 AAA (Pneumothorax); CAD; COPD; GERD; Heart Murmur; Hyperlipidemia; Hypertension; al5 Myocardial infarction; Pneumothorax; - PSHx: 19:27 stents x 3; al5 - Immunization history:: Adult Immunizations up to date. - Infectious Disease History:: Denies. - Social history:: Smoking status: Patient reports the use of cigarette tobacco products, smokes one-half pack cigarettes per day, Patient/guardian denies using alcohol, street drugs. Screenin:30 [facility] ED Fall Risk Assessment (Adult) History of falling in the last 3 months, al5 including since admission No falls in past 3 months (0 pts) Confusion or Disorientation No (0 pts) Intoxicated or Sedated No (0 pts) Impaired Gait No (0 pts) Mobility Assist Device Used No (0 pt) Altered Elimination No (0 pt) Score/Fall Risk Level 0 - 2 = Low Risk Oriented to surroundings, Maintained a safe environment, Hourly rounding (assess needs \\T\\ fall precautionary measures) done. Abuse screen: Denies threats or abuse. Denies injuries from another. Nutritional screening: No deficits noted. Nutritional screening: No deficits noted. Tuberculosis screening: No symptoms or risk factors identified. Assessment: 19:29 General: see triage assessment. Pain: Pain does not radiate. Pain began 2-3 days ago. al5 23:38 Reassessment: have attempted to call and give report to [facility] five times with al5 no success in reaching anyone, phone goes to voicemail after a few rings. notified charge nurse and aboriginal community council member. Vital Signs: 19:26 BP 132 / 103; Pulse 109; Resp 18; Temp 98.1; Pulse Ox 97% on R/A; Weight 86.18 kg; al5 Height 6 ft. 1 in. ; 20:00 BP 133 / 104; Pulse 99; Resp 20; Pulse Ox 97% on R/A; dd2 20:30 BP 141 / 98; Pulse 95; Resp 18; Pulse Ox 96% on R/A; dd2 21:00 BP 124 / 93; Pulse 91; Resp 18; Pulse Ox 96% on R/A; dd2 21:35 BP 126 / 93; Pulse 86; Resp 17; Pulse Ox 97% on R/A; dd2 22:00 BP 134 / 97; Pulse 84; Resp 18; Pulse Ox 97% on R/A; dd2 22:30 BP 133 / 95; Pulse 92; Resp 18; Pulse Ox 98% on R/A; dd2 23:00 BP 116 / 89; Pulse 93; Resp 17; Pulse Ox 96% on R/A; dd2 23:15 Weight 84.82 kg; al5 23:30 BP 124 / 88; Pulse 96; Resp 17; Temp 98.3; Pulse Ox 95% on R/A; dd2 19:26 Body Mass Index 25.07 (84.82 kg, 185.42 cm) al5 ED Course: 19:26 Patient arrived in ED. rv1 19:26 Honorio Malik MD is Attending Physician. sp3 19:26 Laura Fuentes, CINDY is Primary Nurse. al5 19:27 Triage completed. al5 19:29 Arm band placed on right wrist. Patient placed in the treatment room, in view of staff al5 members, on electronic device monitor, on pulse oximetry. 19:29 No provider procedures requiring assistance completed. Patient maintains SpO2 al5 saturation greater than 95% on room air. 19:30 Patient has correct armband on for positive identification. Bed in low position. Call al5 light in reach. Side rails up X 1. Provided Education on: plan of care. Client placed on continuous cardiac and pulse oximetry monitoring. NIBP monitoring applied. teletypesetter monitor on. 19:42 CXR XRAY In Process Unspecified. EDMS 20:05 Attending Physician role handed off by Honorio Malik MD rn 20:05 Will Pickens MD is Attending Physician. rn 21:46 CT Aorta for Dissection In Process Unspecified. EDMS 22:28 Initiated transfer with Antonia at [facility]. rv1 22:[address] Ogden to [facility] 11C RM 1142. rv1 23:40 Nurse having difficulty calling report. Called [facility] Transfer Center, spoke with Alayna who rv1 connected [facility] Nurse with Laura WHITE for report. 23:58 Patient transferred, IV remains in place. al5 Administered Medications: 23:26 Drug: Aspirin PO Chewable Tablet 324 mg PO once; 81 mg tablets x 4 Route: PO; al5 23:58 Follow up: Response: No adverse reaction al5 23:26 Drug: Heparin (MO-Bolus No thrombolytic) - HEParin IVP 60 units/kg IVP once; Max 5000 al5 units {Co-Signature: dd2 (FANNIE GREGG RN).} Route: IVP; Site: right forearm; 23:58 Follow up: Response: No adverse reaction al5 23:27 Drug: Heparin (MO Drip) 12 units/kg/hr - ([place] [address] units, D5W IV 500 ml) IV at al5 calculated rate Per protocol; Max initial rate 1000 units/hr {Co-Signature: dd2 (FANNIE GREGG RN).} Route: IV; Rate: calculated rate; Site: right forearm; 23:58 Follow up: Response: No adverse reaction; IV Status: Infusion continued upon transfer al5 Medication: 19:30 VIS not applicable for this client. al5 Outcome: 22:27 ER care complete, transfer ordered by . rn 23:58 Transferred by ground [facility]. al5 23:58 Condition: stable 23:58 Instructed on the need for transfer, 09/30 01:06 Patient left the ED. al5 Signatures: Dispatcher [employer] EDMS Will Pickens MD MD rn Patel, Setul, MD MD sp3 Lisa Gomez rv1 Laura Fuentes RN RN al5 FANNIE GREGG RN RN dd2 FANNIE GREGG RN dd2 Corrections: (The following items were deleted from the chart) 09/29 19:28 19:27 PMHx: "aneurysm on heart" (stents x 3); al5 al5 23:27 23:26 Heparin (MO-Bolus No thrombolytic) - HEParin IVP 5089.2 units IVP in right al5 forearm al5
[2024-09-29] MEDS ORDERED: ASPIRIN 81 MG CHEWABLE TABLET ONE (23:18)
[2024-09-29] MEDS ORDERED: HEPARIN/D5W 25,000 UNIT/500 ML BAG IV ONE (23:18)
[2024-09-29] MEDS ORDERED: HEPARIN 5000 UNIT/ML 1 ML VIAL ONE (23:18)
[2024-09-30 01:38] VITALS: BP 124/88; TEMP 98.3; O2SAT 95
--- NOTE | 2024-09-30 12:10 | EKG ---
Test Date: 2024-09-29 Test Time: 19:27:01 Talent Engineer: MEL MEASUREMENT RESULTS: Intervals: Rate: 101 NC: 134 QRSD: 98 QT: 338 QTc: 438 [place]: P: 64 NC: 134 QRS: 29 T: 114 INTERPRETIVE STATEMENTS: Sinus tachycardia T wave abnormality, consider lateral ischemia Abnormal ECG Compared to ECG 08/16/2024 23:53:19 Sinus rhythm no longer present T-wave abnormality still present Possible ischemia still present Electronically Signed On 09-30-24 12:08:35 CDT by Jd Almanzar
== END 2024-09-30 01:06 | disposition short-term general hospital (02) ==
LOC: ER 19:24
DX: R07.9 Chest pain, unspecified (principal); I10 Essential (primary) hypertension; I25.10 Atherosclerotic heart disease of native coronary artery without angina pectoris; I25.2 Old myocardial infarction; J44.9 Chronic obstructive pulmonary disease, unspecified; F17.210 Nicotine dependence, cigarettes, uncomplicated; Z95.818 Presence of other cardiac implants and grafts
CPT/HCPCS: 36415; 71045; 71275; 74175; 80048; 80076; 83735; 83880; 84484; 85025; 85610; 93005; 96365; 99285; J1644; Q9967

== ENCOUNTER 2025-03-08 01:58 | Emergency (ER) | payer SELFPAY ==
[2025-03-08] MEDS ORDERED: MECLIZINE HCL 12.5 MG TAB ONE (02:57)
[2025-03-08] MEDS ORDERED: ALBUTEROL 2.5 MG/3 ML NEB SOL ONE (02:57)
[2025-03-08] MEDS ORDERED: IPRATROPIUM BROM 0.5MG/2.5ML ONE (02:57)
[2025-03-08] MEDS ORDERED: METHYLPREDNISOLONE 40 MG INJ ONE (02:58)
[2025-03-08 03:00] LABS: PT Prothrombin Time 11.9 SECONDS (10-13.0); Protime INR 1.05
[2025-03-08 03:01] LABS: Absolute Lymphocytes (CBC) 1.1 K/uL (0.7-4.9); Hematocrit 38.8 % (39.6-49.0); Hemoglobin 12.7 g/dL (13.6-17.9); MCH 25.7 pg (27.0-35.0); MCHC 32.8 g/dL (32.0-36.0); MCV 78.2 fL (80-100); MPV 9.2 fL (7.6-11.3); Nucleated RBC Absolute Count 0.0 (0-0); Nucleated Red Blood Cells % 0.0 % (0-0); RBC Red Blood Cell Count 4.96 M/uL (4.33-5.43); White Blood Count 9.60 thou/uL (4.3-10.9)
[2025-03-08 03:11] LABS: ALT/SGPT 27 U/L (16-61); AST/SGOT 23 U/L (15-37); Albumin 3.3 g/dL (3.4-5.0); Albumin/Globulin Ratio 0.9 (1.1-1.8); Alkaline Phosphatase 131 U/L (45-117); Anion Gap 9.4 mEq/L (5.0-15.0); BUN Blood Urea Nitrogen 16 mg/dL (7-18); Globulin 3.6 g/dL (2.3-3.5); Glucose Level 135 mg/dL (74-106); Magnesium 1.5 mg/dL (1.6-2.4); NT PRO-BNP 309 pg/mL (<125); Potassium 3.4 mEq/L (3.5-5.1); Troponin High Sensitivity 14.0 pg/mL (<58.9)
[2025-03-08 03:13] LABS: Bilirubin Indirect, Calculated 0.1 mg/dL (0.2-0.8)
[2025-03-08 04:10] LABS: D-Dimer 1.725 FEUug/mL (0-0.500)
[2025-03-08] MEDS ORDERED: MAGNESIUM SULFATE 1 gm IVPB 1 GM/100 ML BAG IV ONE (05:06)
[2025-03-08 05:39] LABS: Sqamous Epithelial None Seen /HPF (None Seen); Urine Micro Reflex YN NO BILL MICROSCOPIC
[2025-03-08 05:46] LABS: METHAMPHETAM NEGATIVE (NEGATIVE); THC Cannibis NEGATIVE (NEGATIVE)
--- NOTE | 2025-03-08 06:14 | RAD REPORT ---
EXAMINATION: XR CHEST 1 VIEW INDICATION: 59 years old Male 1965 Chest pain. COMPARISON(S): XR Chest 02/06/2025 (Only report available). TECHNIQUE: 1 view X-ray of the chest was performed. FINDINGS: Support Devices: None. Heart: Cardiac silhouette is normal in size. Median sternotomy wires. Mediastinum: Mediastinal contours are normal. Lungs: Band of atelectasis is in the left CP angle. The right lung is clear. Osseous Structures: Visualized skeleton is normal. IMPRESSION: 1. Left lower lung base atelectasis. Electronically signed by: Pasha Merlos MD 03/08/2025 04:52 AM CDT RP Due to temporary technical issues with the PACS/[employer] reporting system, reports are being marlene d by the in-house radiologist without review as a courtesy to ensure prompt reporting the interpreting radiologist is fully responsible for the content of the report. Transcribed Date/Time: 03/08/2025 6:14 AM
--- NOTE | 2025-03-08 06:33 | RAD REPORT ---
EXAM: CT Head Without Intravenous Contrast CLINICAL HISTORY: The patient is 59 years old and is Male; Dizziness. TECHNIQUE: Axial computed tomography images of the head/brain without intravenous contrast. Sagit merlin and coronal reformatted images were created and reviewed. This CT exam was performed using one or more of the following dose reduction techniques: automated exposure control, adjustment of t he mA and/or kV according to patient size, and/or use of iterative reconstruction technique. COMPARISON: CT Head 02/07/2025. FINDINGS: Brain: Unremarkable. No hemorrhage. No significant white matter disease. No edema. Ventricles: Unremarkable. No ventriculomegaly. Bones/joints: Unremarkable. No acute skull fracture. Soft tissues: Unremarkable. Sinuses: Unremarkable as visualized. No acute sinusitis. Mastoid air cells: No significant mastoid fluid. IMPRESSION: No acute intracranial findings. No hemorrhage. Electronically signed by: Janene Grimm MD 03/08/2025 06:29 AM CDT RP V2 Due to temporary technical issues with the PACS/[employer] reporting system, reports are being marlene d by the in-house radiologist without review as a courtesy to ensure prompt reporting the interpreting radiologist is fully responsible for the content of the report. Transcribed Date/Time: 03/08/2025 6:33 AM
--- NOTE | 2025-03-08 06:37 | EDPHYS ---
Physician Documentation [facility] Name: Garcia Matta Age: 59 yrs Sex: Male : 1965 Arrival Date: 03/08/2025 Time: 01:58 Bed 14 Private MD: ED Physician Edmar Franks HPI: 03/08 02:10 This 59 yrs old Male presents to ER via EMS with complaints of Shortness of Breath and cp Dizziness. 02:10 The patient has shortness of breath at rest. Onset: The symptoms/episode began/occurred cp 1 hour(s) ago. Duration: The symptoms are continuous. The patient presents with dizziness, lightheadedness. Associated signs and symptoms: Pertinent positives: chest pain, Pertinent negatives: abdominal pain, confusion, syncope. Historical: - Home Meds: 02:43 aspirin 81 mg Oral tablet daily [Active]; atorvastatin 80 mg Oral tablet every evening kt5 [Active]; FeroSul 325 mg (65 mg iron) Oral tablet MWF [Active]; furosemide 20 mg Oral tablet twice a day [Active]; levothyroxine 20 mcg/mL oral solution [Active]; melatonin 3 mg Oral capsule once daily at bedtime [Active]; metformin 500 mg Oral tablet daily [Active]; metoprolol tartrate 25 mg Oral tablet 2 times per day [Active]; pantoprazole 40 mg Oral tablet daily [Active]; - PMHx: 02:43 AAA; COPD; CAD; Heart Murmur; GERD; Hypertension; Hyperlipidemia; Pneumothorax; kt5 Myocardial infarction; - PSHx: 02:43 stents x 3; triple bypass; kt5 - Immunization history:: Adult Immunizations up to date, Client reports receiving the 1st dose of the Covid vaccine. - Infectious Disease History:: Denies. - Social history:: Smoking status: Patient reports the use of cigarette tobacco products, smokes one pack cigarettes per day. Patient/guardian denies using alcohol, street drugs. ROS: 02:30 Constitutional: Negative for body aches, chills, fever, poor PO intake, cp 02:30 Eyes: Negative for injury, pain, redness, and discharge, cp 02:30 ENT: Negative for drainage from ear(s), ear pain, sore throat, 02:30 Cardiovascular: Positive for chest pain, Negative for edema, palpitations, 02:30 Respiratory: Positive for shortness of breath, at rest. 02:30 Abdomen/GI: Negative for abdominal pain, vomiting, diarrhea, constipation, 02:30 Neuro: Negative for altered mental status, dizziness, headache, syncope, weakness, 02:30 All other systems are negative, Exam: 02:32 ECG was reviewed by the Attending Physician. cp 02:35 Head/Face: Normocephalic, atraumatic. cp 02:35 Constitutional: The patient appears in no acute distress, alert, awake, non-diaphoretic, non-toxic, well developed, well nourished, 02:35 Eyes: Periorbital structures: appear normal, Conjunctiva: normal, no exudate, no cp injection, Sclera: no appreciated abnormality, Lids and lashes: appear normal, bilaterally, 02:35 ENT: External ear(s): are unremarkable, Nose: is normal, Mouth: Lips: moist, Oral cp mucosa: moist, Posterior pharynx: Airway: no evidence of obstruction, patent, 02:35 Chest/axilla: Inspection: normal, Palpation: crepitus, is not appreciated, tenderness, is not appreciated, 02:35 Cardiovascular: Rate: tachycardic, Rhythm: regular, Edema: is not appreciated, JVD: is not appreciated, 02:35 Respiratory: the patient does not display signs of respiratory distress, Respirations: labored breathing, that is mild, intercostal retractions, are absent, Breath sounds: bronchial sounds, that are mild, are heard diffusely, stridor, is not appreciated, 02:35 Abdomen/GI: Inspection: abdomen appears normal, Palpation: abdomen is soft and non-tender, in all quadrants, 02:35 Back: pain, is absent, 02:35 Skin: no rash present. 02:35 Neuro: Orientation: to person, place \T\ time. 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 0 in. ; Pain 3/10; 03:12 BP 115 / 73; Pulse 94; Resp 20; Pulse Ox 99% ; kt5 03:36 BP 115 / 73; Pulse 90; Resp 20; Pulse Ox 95% ; kt5 05:18 BP 137 / 87; Pulse 87; Resp 18; Pulse Ox 96% ; kt5 06:23 BP 130 / 91; Pulse 96; Resp 18; Temp 98.2; Pulse Ox 95% ; Pain 0/10; kt5 02:01 Body Mass Index 25.09 (83.91 kg, 182.88 cm) kt5 02:01 Pain Scale: Adult kt5 06:23 Pain Scale: Adult kt5 MDM: 02:04 Medical Screening Exam initiated cp 06:35 Data reviewed: vital signs, nurses notes, lab test result(s), EKG, radiologic studies, cp CT scan, plain films, and as a result, I will discharge patient. 06:35 Differential diagnosis: CHF exacerbation, Chronic Obstructive Pulmonary Disease cp pneumonia, Pneumothorax pulmonary edema, Pulmonary Embolism Unstable Angina. Antibiotic administration: Not indicated, the patient does not have an appreciated infiltrate. Consideration of Admission/Observation Escalation of care including admission/observation considered. I considered the following discharge prescriptions or medication management in the emergency department Medications were administered in the Emergency Department. See MAR. Independent interpretation of the following test(s) in the Emergency Department EKG: See my EKG interpretation above. Care significantly affected by the following chronic conditions: Hypertension, Chronic Obstructive Pulmonary Disease. 03/08 02:04 Order name: Basic Metabolic Panel; Complete Time: 03:45 cp 03/08 04:34 Interpretation: Normal except: K 3.4; CL 111; GLUC 135; GFR 81. cp 03/08 02:04 Order name: CBC with Diff; Complete Time: 03:09 03/08 03:10 Interpretation: Normal except: HGB 12.7; HCT 38.8; MCV 78.2; MCH 25.7; RDW 17.9; LEONILA% cp 76.3; LYM% 11.2; BASO% 1.4. 03/08 02:04 Order name: LFT's; Complete Time: 03:45 cp 03/08 04:34 Interpretation: Normal except: ALK 131; IBILI, CALC 0.1; ALB 3.3; GLOB 3.6; A/G 0.9. 03/08 02:04 Order name: Magnesium; Complete Time: 03:45 cp 03/08 02:04 Order name: NT PRO-BNP; Complete Time: 03:45 cp 03/08 02:04 Order name: PT-INR; Complete Time: 04:14 cp 03/08 02:04 Order name: Troponin HS; Complete Time: 03:45 cp 03/08 02:06 Order name: UA W/ Microscopic; Complete Time: 06:13 cp 03/08 06:13 Interpretation: Reviewed. cp 03/08 02:06 Order name: UDS; Complete Time: 06:13 cp 03/08 06:13 Interpretation: Reviewed. cp 03/08 04:07 Order name: D-Dimer; Complete Time: 04:14 EDMS 03/08 06:13 Interpretation: Reviewed. cp 03/08 05:21 Order name: Troponin High Sensitivity; Complete Time: 06:13 cp 03/08 06:13 Interpretation: Reviewed. cp 03/08 02:04 Order name: XRAY Chest (1 view) cp 03/08 04:16 Order name: CT Head Brain wo Cont cp 03/08 04:16 Order name: CT Chest For PE Angio cp 03/08 02:04 Order name: Cardiac monitoring; Complete Time: 02:24 cp 03/08 02:04 Order name: EKG - Nurse/Tech; Complete Time: 02:24 cp 03/08 02:04 Order name: IV Saline Lock; Complete Time: 02:24 cp 03/08 02:04 Order name: Labs collected and sent; Complete Time: 02:24 cp 03/08 02:04 Order name: O2 Per Protocol; Complete Time: 02:24 cp 03/08 02:04 Order name: O2 Sat Monitoring; Complete Time: 02:25 cp EC:32 Rate is 107 beats/min. Rhythm is regular. CO interval is normal. QRS interval is cp prolonged at 140 msec. QT interval is normal. T waves are Inverted in leads I, aVL, V4, V5, V6. Interpreted by me. Reviewed by me. Administered Medications: 02:05 CANCELLED (Physician Discretion): aspirinchewable tablet 324 mg PO once; 81 mg tablets cp x 4 03:00 Drug: MethylPrednisoLONE IVP 80 mg IVP once Route: IVP; Site: right antecubital; kt5 03:36 Follow up: Response: No adverse reaction kt5 03:01 Drug: Meclizine PO 25 mg PO once Route: PO; kt5 03:36 Follow up: Response: No adverse reaction kt5 03:01 Drug: Albuterol Inhalation 2.5 mg Inhalation once Route: Inhalation; kt5 03:35 Follow up: Response: No adverse reaction; Wheezing diminished kt5 03:01 Drug: Ipratropium Inhalation Aerosol 0.5 mg Inhalation once Route: Inhalation; kt5 03:35 Follow up: Response: No adverse reaction; Wheezing diminished kt5 05:20 Drug: Magnesium Sulfate IVPB 1 grams IVPB once over 1 hrs Route: IVPB; Infused Over: 1 kt5 hrs; Site: right forearm; 06:57 Follow up: Response: No adverse reaction; IV Status: Completed infusion; IV Intake: kt5 100ml Disposition Summary: 03/08/25 06:36 Discharge Ordered Notes: Location: Home cp Problem: new cp Symptoms: have improved cp Condition: Stable cp Diagnosis - COPD/ Chronic obstructive pulmonary disease with (acute) exacerbation cp - Dizziness and giddiness cp - Chest pain, unspecified cp Followup: cp - With: Private Physician - When: 2 - 3 days - Reason: Recheck today's complaints Discharge Instructions: - Discharge Summary Sheet cp - Nonspecific Chest Pain, Adult cp - Dizziness cp - Chronic Obstructive Pulmonary Disease Exacerbation cp - Aspirin and Your Heart cp Forms: - Medication Reconciliation Form cp - Antibiotic Education cp - Prescription Opioid Use cp - Patient Portal Instructions cp - Leadership Thank You Letter cp Prescriptions: - ipratropium bromide 17 mcg/actuation Inhalation HFA Aerosol Inhaler - inhale 1 puff INHALATION route every 6 hours; 1 unit; Refills: 0, Product cp Selection Permitted - Meclizine 25 mg Oral Tablet - take 1 tablet ORAL route every 8 hours As needed; 30 tablet; Refills: 0, cp Product Selection Permitted - Prednisone 20 mg Oral Tablet - take 2 tablets ORAL route once daily for 5 days; 10 tablet; Refills: 0, Product cp Selection Permitted Addendum: 03/23/2025 08:06 Co-signature as Attending Physician, Edmar Franks MD I agree with the assessment and c malik plan of care. Signatures: Dispatcher [employer] Edmar Simons MD MD cha Page, Corey, PA-C PA-C Virginia Duncan, RN RN kt5 Corrections: (The following items were deleted from the chart) 03/08 02:05 02:04 Aspirin PO Chewable Tablet 324 mg PO once; 81 mg tablets x 4 ordered. cp cp 02:05 02:05 BASIC METABOLIC PANEL+C.LAB.BRZ ordered. EDMS EDMS 02:05 02:05 CBC+H.LAB.BRZ ordered. EDMS EDMS 02:05 02:05 HEPATIC FUNCTION+C.LAB.BRZ ordered. EDMS EDMS 02:05 02:05 MAGNESIUM+C.LAB.BRZ ordered. EDMS EDMS 02:05 02:05 PROBNP+C.LAB.BRZ ordered. EDMS EDMS 02:05 02:05 PROTIME (+INR)+COAG.LAB.BRZ ordered. EDMS EDMS 02:05 02:05 Troponin High Sensitivity+C.LAB.BRZ ordered. EDMS EDMS 02:05 02:05 Chest Single View+RAD.RAD.BRZ ordered. EDMS EDMS 02:32 02:31 ECG was reviewed by the Attending Physician. cp cp 02:32 02:31 Rate is 107 beats/min. Rhythm is regular. CO interval is normal. QRS interval is cp prolonged at 140 msec. QT interval is normal. T waves are Inverted in leads I, aVL, V4, V5, V6. Interpreted by me. Reviewed by me. cp 04:07 03:46 D-DIMER+COAG.LAB.BRZ ordered. EDMS EDMS
--- NOTE | 2025-03-08 06:37 | ER ---
Nurse's Notes [facility] Name: Garcia Matta Age: 59 yrs Sex: Male : 1965 Arrival Date: 03/08/2025 Time: 01:58 Bed 14 Private MD: Diagnosis: COPD/ Chronic obstructive pulmonary disease with (acute) exacerbation;Dizziness and giddiness;Chest pain, unspecified Presentation: 03/08 02:01 Chief complaint: Patient states: BIBA by ambulance for Cp and sob. Risk Assessment: Do kt5 you want to hurt yourself or someone else? Patient reports no desire to harm self or others. 02:01 Method Of Arrival: EMS: [facility] kt5 02:01 Acuity: CATARINA 2 kt5 02:01 Initial Sepsis Screen: Does the patient meet any 2 criteria? HR > 90 bpm. Initial kt5 Sepsis Screen: Does the patient have a suspected source of infection? No. Patient's initial sepsis screen is negative. Onset of symptoms was March 07, 2025. 02:51 Chief complaint:. Coronavirus screen: Vaccine status:. Ebola Screen: No symptoms or kt5 risks identified at this time. Historical: - Home Meds: 02:43 aspirin 81 mg Oral tablet daily [Active]; atorvastatin 80 mg Oral tablet every evening kt5 [Active]; FeroSul 325 mg (65 mg iron) Oral tablet MW [Active]; furosemide 20 mg Oral tablet twice a day [Active]; levothyroxine 20 mcg/mL oral solution [Active]; melatonin 3 mg Oral capsule once daily at bedtime [Active]; metformin 500 mg Oral tablet daily [Active]; metoprolol tartrate 25 mg Oral tablet 2 times per day [Active]; pantoprazole 40 mg Oral tablet daily [Active]; - PMHx: 02:43 AAA; COPD; CAD; Heart Murmur; GERD; Hypertension; Hyperlipidemia; Pneumothorax; kt5 Myocardial infarction; - PSHx: 02:43 stents x 3; triple bypass; kt5 - Immunization history:: Adult Immunizations up to date, Client reports receiving the 1st dose of the Covid vaccine. - Infectious Disease History:: Denies. - Social history:: Smoking status: Patient reports the use of cigarette tobacco products, smokes one pack cigarettes per day. Patient/guardian denies using alcohol, street drugs. Screenin:43 [facility] ED Fall Risk Assessment (Adult) History of falling in the last 3 months, kt5 including since admission No falls in past 3 months (0 pts) Confusion or Disorientation No (0 pts) Intoxicated or Sedated No (0 pts) Impaired Gait Yes (1 pt) Mobility Assist Device Used Yes (1 pt) Altered Elimination No (0 pt) Score/Fall Risk Level 0 - 2 = Low Risk Oriented to surroundings, Maintained a safe environment. Abuse screen: Denies threats or abuse. Nutritional screening: No deficits noted. Tuberculosis screening: No symptoms or risk factors identified. Assessment: 02:01 General: Appears in no apparent distress. uncomfortable, unkempt, disheveled. Behavior kt5 is calm, flat. Pain: Complains of pain in left supraclavicular area, left clavicle and anterior aspect of left upper chest Pain does not radiate. Pain currently is 3 out of 10 on a pain scale. Quality of pain is described as sharp, Pain began suddenly, Is intermittent. Neuro: No deficits noted. Naranjo Agitation-Sedation Scale (RASS): 0 - Alert and Calm Level of Consciousness is awake, alert, obeys commands, Oriented to person, place, time, situation, Appropriate for age. Cardiovascular: Heart tones S1 S2 present Capillary refill < 3 seconds Clubbing of nail beds is absent JVD is absent Pulses are all present. Edema is absent. Respiratory: Reports shortness of breath at rest on exertion cough that is productive, Airway is patent Trachea midline Respiratory effort is even, labored, Respiratory pattern is symmetrical, tachypnea. GI: No deficits noted. No signs and/or symptoms were reported involving the gastrointestinal system. Abdomen is flat, non-distended. : No deficits noted. No signs and/or symptoms were reported regarding the genitourinary system. EENT: No deficits noted. No signs and/or symptoms were reported regarding the EENT system. Derm: No deficits noted. No signs and/or symptoms reported regarding the dermatologic system. Skin is healthy with good turgor, Skin is dry, Skin is pale, Skin temperature is warm. Musculoskeletal: No deficits noted. No signs and/or symptoms reported regarding the musculoskeletal system. 02:50 General: tech at for pcxr. kt5 03:12 Reassessment: Patient appears in no apparent distress at this time. Patient and/or kt5 family updated on plan of care and expected duration. Pain level reassessed. Patient is alert, oriented x 3, equal unlabored respirations, skin warm/dry/pink. Patient states symptoms have not improved. 03:36 Reassessment: Patient appears in no apparent distress at this time. Patient and/or kt5 family updated on plan of care and expected duration. Pain level reassessed. Patient is alert, oriented x 3, equal unlabored respirations, skin warm/dry/pink. 04:38 General: pt to ct with tech. kt5 05:18 Reassessment: Patient appears in no apparent distress at this time. Patient and/or kt5 family updated on plan of care and expected duration. Pain level reassessed. Patient is alert, oriented x 3, equal unlabored respirations, skin warm/dry/pink. Patient states feeling better. Patient states symptoms have improved. 06:23 Reassessment: Patient appears in no apparent distress at this time. Patient and/or kt5 family updated on plan of care and expected duration. Pain level reassessed. Patient is alert, oriented x 3, equal unlabored respirations, skin warm/dry/pink. Patient states feeling better. Patient states symptoms have improved. Vital Signs: 02:01 BP 120 / 71; Pulse 108; Resp 18; Temp 98.1; Pulse Ox 96% ; Weight 83.91 kg; Height 6 kt5 ft. 0 in. ; Pain 3/10; 03:12 BP 115 / 73; Pulse 94; Resp 20; Pulse Ox 99% ; kt5 03:36 BP 115 / 73; Pulse 90; Resp 20; Pulse Ox 95% ; kt5 05:18 BP 137 / 87; Pulse 87; Resp 18; Pulse Ox 96% ; kt5 06:23 BP 130 / 91; Pulse 96; Resp 18; Temp 98.2; Pulse Ox 95% ; Pain 0/10; kt5 02:01 Body Mass Index 25.09 (83.91 kg, 182.88 cm) kt5 02:01 Pain Scale: Adult kt5 06:23 Pain Scale: Adult kt5 ED Course: 02:00 Patient arrived in ED. kt5 02:00 Virginia Thomas, CINDY is Primary Nurse. kt5 02:01 Triage completed. kt5 02:01 Arm band placed on right wrist. kt5 02:03 [facility] cp 02:03 Edmar Franks MD is Attending Physician. cp 02:15 Edmar Franks MD is Attending Physician. cp 02:25 Basic Metabolic Panel Sent. kt5 02:25 CBC with Diff Sent. kt5 02:25 LFT's Sent. kt5 02:25 Magnesium Sent. kt5 02:25 NT PRO-BNP Sent. kt5 02:25 PT-INR Sent. kt5 02:25 Troponin HS Sent. kt5 02:25 Inserted saline lock: 18 gauge in right wrist, using aseptic technique. Blood kt5 collected. Flushed with 10 mL NS. 02:43 Placed in gown. Bed in low position. Call light in reach. Side rails up X 1. Client kt5 placed on continuous cardiac and pulse oximetry monitoring. NIBP monitoring applied. phototypesetting equipment monitor on. Door closed. Noise minimized. Warm blanket given. Pillow given. 02:43 No provider procedures requiring assistance completed. kt5 03:00 XRAY Chest (1 view) In Process Unspecified. EDMS 05:06 CT Head Brain wo Cont In Process Unspecified. EDMS 05:09 CT Chest For PE Angio In Process Unspecified. EDMS 05:28 Troponin High Sensitivity Sent. kt5 06:23 Provided Education on: smoking cessation . kt5 07:21 IV discontinued, intact, bleeding controlled, No redness/swelling at site. Pressure af3 dressing applied. Administered Medications: 02:05 CANCELLED (Physician Discretion): aspirinchewable tablet 324 mg PO once; 81 mg tablets cp x 4 03:00 Drug: MethylPrednisoLONE IVP 80 mg IVP once Route: IVP; Site: right antecubital; kt5 03:36 Follow up: Response: No adverse reaction kt5 03:01 Drug: Meclizine PO 25 mg PO once Route: PO; kt5 03:36 Follow up: Response: No adverse reaction kt5 03:01 Drug: Albuterol Inhalation 2.5 mg Inhalation once Route: Inhalation; kt5 03:35 Follow up: Response: No adverse reaction; Wheezing diminished kt5 03:01 Drug: Ipratropium Inhalation Aerosol 0.5 mg Inhalation once Route: Inhalation; kt5 03:35 Follow up: Response: No adverse reaction; Wheezing diminished kt5 05:20 Drug: Magnesium Sulfate IVPB 1 grams IVPB once over 1 hrs Route: IVPB; Infused Over: 1 kt5 hrs; Site: right forearm; 06:57 Follow up: Response: No adverse reaction; IV Status: Completed infusion; IV Intake: kt5 100ml Medication: 02:43 VIS not applicable for this client. kt5 Intake: 06:57 IV: 100ml; Total: 100ml. kt5 Outcome: 06:36 Discharge ordered by MD. cp 07:21 Discharged to home ambulatory, with family, af3 07:21 Condition: stable 07:21 Discharge instructions given to patient, family, Instructed on discharge instructions, follow up and referral plans. medication usage, Demonstrated understanding of instructions, follow-up care, medications, Prescriptions given X 3, 07:22 Patient left the ED. af3 Signatures: Dispatcher [employer] EDMS Edmar Pollard PA-C PA-C cp Fry, Ashley RN RN af3 Virginia Thomas RN RN kt5 Corrections: (The following items were deleted from the chart) 02:53 02:01 Chief complaint: Patient states: cp and sob kt5 kt5
--- NOTE | 2025-03-08 06:54 | RAD REPORT ---
EXAM: CT Angiography Chest With Intravenous Contrast CLINICAL HISTORY: The patient is 59 years old and is Male; SOB. TECHNIQUE: Axial computed tomographic angiography images of the chest with intravenous contrast. Sagittal and coronal reformatted images were created and reviewed. This CT exam was performed using one or more of the following dose reduction techniques: automated exposure control, adjustmen t of the mA and/or kV according to patient size, and/or use of iterative reconstruction technique. MIP reconstructed images were created and reviewed. COMPARISON: XR Chest 03/08/2025, 12:47:14 AM and CTA Chest 07/02/2024 - report only. FINDINGS: Pulmonary arteries: No PE identified. Aorta: No acute findings. No thoracic aortic aneurysm. Lungs and pleural spaces: Centrilobular and paraseptal emphysema, greatest in the upper lobes. Li ngula scarring. No consolidation. No pleural effusion or pneumothorax. Heart: Mild cardiomegaly. Aortic valve replacement. No significant pericardial fluid. Bones/joints: Sternal closure wires. No acute fracture visualized. Mild scoliosis. No dislocation. Soft tissues: Unremarkable. Lymph nodes: No pathologically enlarged lymph nodes. IMPRESSION: 1. No PE identified. 2. Centrilobular and paraseptal emphysema, greatest in the upper lobes. Lingula scarring. 3. Mild cardiomegaly. Aortic valve replacement. Electronically signed by: Janene Grimm MD 03/08/2025 06:33 AM [facility] V2 Due to temporary technical issues with the PACS/[employer] reporting system, reports are being marlene d by the in-house radiologist without review as a courtesy to ensure prompt reporting the interpreting radiologist is fully responsible for the content of the report. Transcribed Date/Time: 03/08/2025 6:54 AM
[2025-03-08 07:32] VITALS: BP 130/91; TEMP 98.2; O2SAT 95
== END 2025-03-08 07:22 | disposition home or self-care (01) ==
LOC: ER 01:58
DX: J44.1 Chronic obstructive pulmonary disease with (acute) exacerbation (principal); R42 Dizziness and giddiness; R07.9 Chest pain, unspecified; I10 Essential (primary) hypertension; I25.10 Atherosclerotic heart disease of native coronary artery without angina pectoris; I25.2 Old myocardial infarction; Z95.1 Presence of aortocoronary bypass graft; Z95.5 Presence of coronary angioplasty implant and graft; F17.210 Nicotine dependence, cigarettes, uncomplicated
CPT/HCPCS: 36415; 70450; 71045; 71275; 80048; 80076; 80307; 81001; 83735; 83880; 84484; 85025; 85379; 85610; 93005; 96365; 96366; 96375; 99285; J2919; J3475; J7613; J7644; J8597; Q9967